=== PATIENT | female | born 1945 | race Caucasian/White ===

== ENCOUNTER 2020-05-03 09:47 | Inpatient (IN) ==
[2020-05-03] MEDS ORDERED: ONDANSETRON INJ 2 MG/ML 2 ML VIAL IV STA (10:29)
[2020-05-03] MEDS ORDERED: MoRPHine SULFATE 4 MG/ML 1 ML CARP\\VIAL IV STA (10:29)
[2020-05-03] MEDS ORDERED: SODIUM CHLORIDE 0.9% 1000ML 1,000 ML IV ONE (10:29)
[2020-05-03 10:51] LABS: Basophils # (auto) 0.02 K/uL (0-0.2); Basophils % (auto) 0.3 %; Eosinophils # (auto) 0.13 K/uL (0-0.5); Eosinophils % (auto) 1.9 %; Immature Granulocytes # (auto) 0.02 K/uL (0.00-0.02); Immature Granulocytes % (auto) 0.3 %; Lymphocytes # (auto) 1.14 K/uL (1.2-3.4); Lymphocytes % (auto) 16.8 %; Mean Corpuscular Hemoglobin 29.9 pg (25-34); Mean Corpuscular Hgb Conc 32.5 g/dL (32-36); Monocytes # (auto) 0.47 K/uL (0.11-0.59); Monocytes % (auto) 6.9 %; Neutrophils # (auto) 5.02 K/uL (1.4-6.5); Neutrophils % (auto) 73.8 %; Platelet Count 292 K/uL (130-400); RDW Coefficient of Variation 14.1 % (11.5-14.5); RDW Standard Deviation 47.4 fL (36.4-46.3); Red Blood Count 4.35 M/uL (4.2-5.4)
[2020-05-03 11:03] LABS: Alanine Aminotransferase 21 U/L (12-78); Albumin Level 3.2 gm/dl (3.4-5.0); Aspartate Aminotransferase 9 U/L (15-37); BUN Creatinine Ratio 15.9 (10-20); Blood Urea Nitrogen 16 mg/dl (7-18); Calcium 9.7 mg/dl (8.5-10.1); Carbon Dioxide 30 mmol/L (21-32); Chloride 102 mmol/L (98-107); Creatinine Clr Calc Pharmacy 45.5 ml/min; Est GFR (African American) 64.6; Est GFR (Non-African American) 55.7; Glucose 102 mg/dl (70-99); Lipase 86 U/L (73-393); Potassium 3.7 mmol/L (3.5-5.1); Sodium 138 mmol/L (136-145)
[2020-05-03 11:08] LABS: Albumin Globulin Ratio 0.9 (0.9-2); Alkaline Phosphatase 44 U/L (45-117); Bilirubin,Total 0.3 mg/dl (0.2-1); Globulin 3.6 gm/dl (2.5-4.0); Total Protein 6.8 gm/dl (6.4-8.2); Troponin I < 0.015 ng/ml (0-0.045)
[2020-05-03] MEDS ORDERED: IOVERSOL 100ml IV ONE (11:38)
--- NOTE | 2020-05-03 11:38 | Emergency Department Note ---
Impression & Plan Nausea & vomiting, Acute lumbar radiculopathy ED Provider Note Provider: Lew Deluca MD DATE OF SERVICE:05/03/2020 CHIEF COMPLAINT: Right hip pain and nausea and vomiting HISTORY OF PRESENT ILLNESS: Patient is a 74-year-old female with a past medical history of hypertension and diabetes presenting today with daughter reporting over the past 2 months consistent nausea and vomiting with any eating. Patient denies other significant abdominal pain. [facility] and had a barium swallow this past week without report at this time. Has been seen at the [place] [facility] several times and had various imaging modalities without reported cause found. Has been taking some prescribed nausea medicine at home without improvement. Denies diarrhea. States she is been losing weight over the past several months. States some GERD at times denies significant chest pain or shortness of breath. Denies fever. States that for some months before that she has had significant right hip pain with some radiation of the right thigh. Denies numbness or tingling in the lower extremities. Denies any issue with the left lower extremity. Patient does relate a history of back surgery in the past. Has tried Phenergan at home with has not helped with the nausea. Patient states she has been taking some tramadol at home for the back pain but this has not been helping. Distantly she reports she is previously on some Lortab and that did help. REVIEW OF SYSTEMS: A total of 10 review of systems was obtained and negative except as stated above in the HPI. PAST MEDICAL HISTORY: As noted above MEDICATIONS: Reviewed home medication list SOCIAL HISTORY: Lives at home, smoker PHYSICAL EXAM: GENERAL: alert and oriented in no acute distress on stretcher Head: normocephalic and atraumatic EYES: No injection, discharge or icterus. NECK: Trachea midline. ENT: Mucous membranes pink and moist. LUNGS: Airway patent. No retractions. Breath sounds clear with good air entry bilaterally. HEART: Regular rate and rhythm. No chest wall tenderness ABDOMEN: Soft and non-tender, without guarding or rebound. No hepatosplenomegaly or masses BACK: No midline tenderness, some tenderness overlying the right hip and pain with movement of the right hip extending into the right thigh. SKIN: Acyanotic, warm, dry, without rashes EXTREMITIES: Without swelling, tenderness or deformity NEUROLOGICAL: No focal deficits. No aphasia. No facial droop or slurred speech. Normal strength and tone in the extremities limited in the right lower extremity secondary to pain. Sensation to gross touch normal in the lower extremities EK bpm sinus rhythm with sinus arrhythmia. No PVC or PAC. No acute ST segment elevation or depression appreciated. Normal QTC. CONTINUOUS CARDIAC MONITORING: was ordered and showed a heart rate of 75 bpm in normal sinus rhythm with occasional sinus arrhythmia PDMP was checked without noted issue. Patient's laboratory studies and imaging reviewed. Differential includes Appendicitis, infections, diverticulitis, UTI, obstru ction, mesenteric ischemia, aortic pathology, inflammatory bowel disease, renal colic, PUD, pancreatitis, biliary pathology, hernia, volvulus, constipation, as well as other pathologies. IMPRESSION/MEDICAL DECISION MAKING: Patient presents with 2 months of nausea and vomiting decreased intake and weight loss. Reports more chronic right hip pain with some radiation of the right thigh. Has been working up with her PCP and providers in [place]. Had a recent outpatient barium swallow but unsure of results. Patient's not peritoneal here. Has pain with movement of the right hip. Question of sciatic component to the hip. No fevers reported. No significant upper abdominal tenderness and doubt biliary pathology. Laboratory studies show no significant leukocytosis or anemia. No severe electrolyte abnormalities signs of renal dysfunction is noted. No evidence of transaminitis or elevated bilirubin is noted. Does not seem consistent with hepatitis. Lipase not elevated not indica tive of acute pancreatitis. Do note some sigmoid diverticulosis but no signs of diverticulitis on a somewhat limited CT exam with a small suprarenal AAA noted. CT scan does note a hyperdensity posterior to the L1 vertebral body likely a disc extrusion partially calcified and much less likely an epidural hematoma. Not having neurological symptoms a lower extremity and believe less likely to be acute infection or hematoma however given the finding in her pain MRI will be obtained. Unsure the exact etiology of her nausea and vomiting. Does have a history of diabetes and some component of gastroparesis may be present. Initially treated with some Zofran IV fluids and morphine. Patient had resolution of her nausea at this time with a low bit thirsty. Pain was somewhat better. Discussed with her and daughter blood work findings and CT findings. Were agreeable for an MRI of the spine which was ordered. Patient did require little bit oxygen to became somewhat drowsy if the morphine. Still with some pain and given a bit of Toradol as he wanted to for additional narcotics to prevent delirium or further hypoxia. Per radiology report the MRI shows prior evidence of laminectomy and likely seroma. There is a right paracentral L1 vertebral body partial disc extrusion with some central canal narrowing and right and some left neural foramen stenosis. No significant infectious symptoms reported and no leukocytosis or fevers. Do not believe this is infectious. The lumbar finding on the CT is likely causing a lumbar radiculopathy and her pain. Her pain is somewhat improved after medication here. Discussed with patient and daughter findings. Patient and daughter in particular he had concerns about the continued nausea decreased intake and weight loss recently and wished for further observation here in the hospital. Discussed the risks associated with this (such as iatrogenic infections or Covid exposure) as well as possible benefits and GI consultation. The hospitalist was contacted. DIAGNOSIS: Nausea and vomiting, lumbar radiculopathy with sciatica DISPOSITION: Hospitalist will evaluate Patient was agreeable with this plan. Past Med/Surg History Social History Smoking Status: Current every day smoker Tobacco Type: Cigarettes Feels Safe at Home: Yes Allergies Allergies Allergy/AdvReac Type Severity Reaction Status Date / Time No Known Allergies Allergy Unverified 05/03/20 12:33 Home Meds Home Medications Medication Instructions Recorded Confirmed cholecalciferol (vitamin D3) 25 mcg PO DAILY 05/03/20 05/03/20 [Vitamin D3] cyanocobalamin (vitamin B-12) 1,000 mcg PO DAILY 05/03/20 05/03/20 [Vitamin B-12] diltiazem HCl 180 mg PO DAILY 05/03/20 05/03/20 duloxetine 30 mg PO DAILY 05/03/20 05/03/20 duloxetine 60 mg PO DAILY 05/03/20 05/03/20 fenofibrate micronized 134 mg PO DAILY 05/03/20 05/03/20 gabapentin 600 mg PO TID 05/03/20 05/03/20 hydrochlorothiazide 25 mg PO DAILY 05/03/20 05/03/20 [id number] [Creon] 1 cap PO DIRECTED 05/03/20 05/03/20 liraglutide [Victoza 3-Shady] 1.8 mg SUBCUT QAM 05/03/20 05/03/20 lisinopril 40 mg PO DAILY 05/03/20 05/03/20 metformin 1,000 mg PO BID 05/03/20 05/03/20 omega-3 fatty acids [Fish Oil] 1,000 mg PO DAILY 05/03/20 05/03/20 ondansetron 4 mg TRANSLINGUAL Q8H PRN 05/03/20 05/03/20 pantoprazole 40 mg PO DAILY 05/03/20 05/03/20 pramipexole 1 mg PO HS 05/03/20 05/03/20 pravastatin 40 mg PO DAILY 05/03/20 05/03/20 ropinirole 1 mg PO HS 05/03/20 05/03/20 sucralfate 1 g PO DIRECTED PRN 05/03/20 05/03/20 tizanidine 4 mg PO Q8H PRN 05/03/20 05/03/20 tramadol 50 mg PO DIRECTED PRN 05/03/20 05/03/20 Results & Data (ED) Vital Signs Vital Signs - 24 hr 05/03/20 09:55 05/03/20 10:46 05/03/20 11:57 Temperature 37.2 C Temperature Source Oral Pulse Rate 78 Pulse Rate [Apical] 75 Pulse Rhythm [Apical] Regular Respiratory Rate 20 18 Respiratory Effort / Characteristics Non-Labored Spontaneous Non-Labored Spontaneous Respiratory Depth Normal Normal Respiratory Pattern Regular Blood Pressure 131/81 Blood Pressure [Right Arm] 152/92 H Blood Pressure Mean 97 Blood Pressure Mean [Right Arm] 112 Pulse Oximetry 92 86 L 94 Oxygen Delivery Method Room Air Nasal Cannula Nasal Cannula Oxygen Flow Rate 3 Sepsis Recent Fever Within 48 Hours No Sepsis New/Unexplained Change in Mental Status N/A Sepsis Action Taken by Nursing No Action Required Oxygen Flow Rate - Titration 2 Pulse Oximetry Post Tiitration 91 05/03/20 13:00 05/03/20 14:55 05/03/20 16:56 Temperature Temperature Source Pulse Rate Pulse Rate [Apical] 71 82 75 Pulse Rhythm [Apical] Regular Regular Respiratory Rate 18 18 20 Respiratory Effort / Characteristics Non-Labored Spontaneous Non-Labored Spontaneous Respiratory Depth Normal Normal Respiratory Pattern Blood Pressure Blood Pressure [Right Arm] 148/90 H 137/63 133/77 Blood Pressure Mean Blood Pressure Mean [Right Arm] 109 87 95 Pulse Oximetry 95 92 98 Oxygen Delivery Method Nasal Cannula Nasal Cannula Room Air Oxygen Flow Rate 2 2 Sepsis Recent Fever Within 48 Hours Sepsis New/Unexplained Change in Mental Status Sepsis Action Taken by Nursing Oxygen Flow Rate - Titration Pulse Oximetry Post Tiitration Laboratory Data Result diagrams: 05/03/20 10:39 05/03/20 10:39 Lab Results 05/03/20 05/03/20 05/03/20 Range/Units 10:39 10:39 17:15 WBC 6.80 (4.8-10.8) K/uL RBC 4.35 (4.2-5.4) M/uL Hgb 13.0 (12.0-16.0) g/dL Hct 40.0 (37-47) % MCV 92.0 (80-100) fL MCH 29.9 (25-34) pg MCHC 32.5 (32-36) g/dL RDW Std Deviation 47.4 H (36.4-46.3) fL RDW Coeff of [place] 14.1 (11.5-14.5) % Plt Count 292 (130-400) K/uL MPV 10.0 (7.4-10.4) fL Immature Gran % (Auto) 0.3 % Neut % (Auto) 73.8 % Lymph % (Auto) 16.8 % [place] % (Auto) 6.9 % Eos % (Auto) 1.9 % Baso % (Auto) 0.3 % Neut # (Auto) 5.02 (1.4-6.5) K/uL Lymph # (Auto) 1.14 L (1.2-3.4) K/uL [place] # (Auto) 0.47 (0.11-0.59) K/uL Eos # (Auto) 0.13 (0-0.5) K/uL Baso # (Auto) 0.02 (0-0.2) K/uL Immature Gran # (Auto) 0.02 (0.00-0.02) K/uL Sodium 138 (136-145) mmol/L Potassium 3.7 (3.5-5.1) mmol/L Chloride 102 (98-107) mmol/L Carbon Dioxide 30 (21-32) mmol/L Anion Gap 6.0 (3-11) BUN 16 (7-18) mg/dl Creatinine 0.99 (0.6-1.2) mg/dl Est Cr Clr Drug Dosing 45.5 ml/min Est GFR ( Amer) 64.6 Est GFR (Non-Af Amer) 55.7 BUN/Creatinine Ratio 15.9 (10-20) Glucose 102 H (70-99) mg/dl Calcium 9.7 (8.5-10.1) mg/dl Total Bilirubin 0.3 (0.2-1) mg/dl AST 9 L (15-37) U/L ALT 21 (12-78) U/L Alkaline Phosphatase 44 L (45-117) U/L Troponin I < 0.015 (0-0.045) ng/ml Total Protein 6.8 (6.4-8.2) gm/dl Albumin 3.2 L (3.4-5.0) gm/dl Globulin 3.6 (2.5-4.0) gm/dl Albumin/Globulin Ratio 0.9 (0.9-2) Lipase 86 (73-393) U/L COVID-19 Eval [facility] SARS-CoV-2, RNA, NAAT (NEGATIVE) 05/03/20 Range/Units 17:15 WBC (4.8-10.8) K/uL RBC (4.2-5.4) M/uL Hgb (12.0-16.0) g/dL Hct (37-47) % MCV (80-100) fL MCH (25-34) pg MCHC (32-36) g/dL RDW Std Deviation (36.4-46.3) fL RDW Coeff of [place] (11.5-14.5) % Plt Count (130-400) K/uL MPV (7.4-10.4) fL Immature Gran % (Auto) % Neut % (Auto) % Lymph % (Auto) % [place] % (Auto) % Eos % (Auto) % Baso % (Auto) % Neut # (Auto) (1.4-6.5) K/uL Lymph # (Auto) (1.2-3.4) K/uL [place] # (Auto) (0.11-0.59) K/uL Eos # (Auto) (0-0.5) K/uL Baso # (Auto) (0-0.2) K/uL Immature Gran # (Auto) (0.00-0.02) K/uL Sodium (136-145) mmol/L Potassium (3.5-5.1) mmol/L Chloride (98-107) mmol/L Carbon Dioxide (21-32) mmol/L Anion Gap (3-11) BUN (7-18) mg/dl Creatinine (0.6-1.2) mg/dl Est Cr Clr Drug Dosing ml/min Est GFR ( Amer) Est GFR (Non-Af Amer) BUN/Creatinine Ratio (10-20) Glucose (70-99) mg/dl Calcium (8.5-10.1) mg/dl Total Bilirubin (0.2-1) mg/dl AST (15-37) U/L ALT (12-78) U/L Alkaline Phosphatase (45-117) U/L Troponin I (0-0.045) ng/ml Total Protein (6.4-8.2) gm/dl Albumin (3.4-5.0) gm/dl Globulin (2.5-4.0) gm/dl Albumin/Globulin Ratio (0.9-2) Lipase (73-393) U/L COVID-19 Eval Order SARS-CoV-2, RNA, NAAT NEGATIVE (NEGATIVE) Administered Medications Nicotine (Nicotine 21 Mg/24 Hr Tdsy) 21 mg TD QAM CLIVE Stop: 06/02/20 16:14 Last Admin: 05/03/20 16:30 Dose: 21 mg Documented by: [id number] Discontinued Medications Sodium Chloride (Nss 1000ml) 1,000 mls @ 999 mls/hr IV .Q1H1M ONE Stop: 05/03/20 11:29 Last Infusion: 05/03/20 12:12 Dose: 0 mls/hr Documented by: [id number] Admin: 05/03/20 10:42 Dose: 999 mls/hr Documented by: [id number] Famotidine (Pepcid 20mg Iv Push) 20 mg in 5 mls @ 2.5 mls/min IV NOW STA Stop: 05/03/20 13:54 Last Admin: 05/03/20 14:01 Dose: 2.5 mls/min Documented by: [id number] Lactated Ringer's (Lr) 1,000 mls @ 999 mls/hr IV .Q1H1M ONE Stop: 05/03/20 17:01 Last Admin: 05/03/20 16:30 Dose: 999 mls/hr Documented by: [id number] Ioversol (Ioversol 100ml) 94 ml IV ONCE ONE Stop: 05/03/20 11:39 Last Admin: 05/03/20 11:38 Dose: 94 ml Documented by: [id number] Ketorolac Tromethamine (Ketorolac Tromethamine 15 Mg/Ml Vial) 10 mg IV NOW ONE Stop: 05/03/20 13:54 Last Admin: 05/03/20 14:01 Dose: 10 mg Documented by: [id number] Metoclopramide HCl (Metoclopramide Hcl Inj 5 Mg/Ml 2 Ml Vial) 5 mg IV ONE ONE Stop: 05/03/20 16:02 Last Admin: 05/03/20 16:30 Dose: 5 mg Documented by: [id number] Morphine Sulfate (Morphine Sulfate 4 Mg/Ml 1 Ml Carp\Vial) 4 mg IV NOW STA Stop: 05/03/20 10:30 Last Admin: 05/03/20 10:42 Dose: 4 mg Documented by: [id number] Ondansetron HCl (Ondansetron Inj 2 Mg/Ml 2 Ml Vial) 4 mg IV NOW STA Stop: 05/03/20 10:30 Last Admin: 05/03/20 10:42 Dose: 4 mg Documented by: [id number] Discharge Plan Visit Data Chief Complaint: Vomiting Stated Complaint: THROWING UP ED Provider: Lew Deluca Discharge Problem: Nausea & vomiting, Acute lumbar radiculopathy Patient Disposition: Being Evaluated by Hospitalist Forms Stand Alone Forms: [facility] Prescriptions Prescriptions: No Action pramipexole 1 mg tablet 1 mg PO HS RF: 0 metformin 500 mg tablet 1,000 mg PO BID RF: 0 gabapentin 600 mg tablet 600 mg PO TID RF: 0 ropinirole 1 mg tablet 1 mg PO HS RF: 0 pravastatin 40 mg tablet 40 mg PO DAILY RF: 0 diltiazem HCl 180 mg capsule,extended release 24hr 180 mg PO DAILY RF: 0 tizanidine 4 mg tablet 4 mg PO Q8H PRN (Reason: Muscle Spasm) RF: 0 sucralfate 1 gram tablet 1 g PO DIRECTED PRN (Reason: Indigestion) RF: 0 cyanocobalamin (vitamin B-12) [Vitamin B-12] 1,000 mcg Tablet 1,000 mcg PO DAILY RF: 0 tramadol 50 mg tablet 50 mg PO DIRECTED PRN (Reason: Pain) RF: 0 fenofibrate micronized 134 mg capsule 134 mg PO DAILY RF: 0 pantoprazole 40 mg tablet,delayed release (DR/EC) 40 mg PO DAILY RF: 0 hydrochlorothiazide 25 mg tablet 25 mg PO DAILY RF: 0 lisinopril 40 mg tablet 40 mg PO DAILY RF: 0 ondansetron 4 mg tablet,disintegrating 4 mg translingual Q8H PRN (Reason: Nausea) RF: 0 Fish Oil Capsule 1,000 mg PO DAILY RF: 0 duloxetine 30 mg capsule,delayed release(DR/EC) 30 mg PO DAILY RF: 0 duloxetine 60 mg capsule,delayed release(DR/EC) 60 mg PO DAILY RF: 0 cholecalciferol (vitamin D3) [Vitamin D3] 25 mcg (1,000 unit) Tablet 25 mcg PO DAILY RF: 0 Creon 24,000-76,000 -120,000 unit capsule,delayed release(DR/EC) 1 cap PO DIRECTED RF: 0 Victoza 3-Shady 0.6 mg/0.1 mL (18 mg/3 mL) pen injector 1.8 mg SUBCUT QAM RF: 0 Referrals Referrals: Manny Bland DO [Primary Care Provider] - Discharge Problem: Nausea & vomiting Qualifiers: Vomiting type: unspecified Vomiting Intractability: non-intractable Qualified Code(s): R11.2 - Nausea with vomiting, unspecified
--- NOTE | 2020-05-03 12:02 | CT Scan Report ---
CT OF THE ABDOMEN AND PELVIS WITH CONTRAST CLINICAL HISTORY: vomiting, R hip pain COMPARISON STUDY: None. TECHNIQUE: Following IV administration of 94 mL of Optiray-320, axial images of the abdomen and pelvi s were obtained from the lung bases to the proximal femurs. Images were reviewed in the axial, sagitt al, and coronal planes. IV contrast was administered without complication. Automated exposure contro l was utilized for the study. A dose lowering technique was utilized adhering to the principles of A MAICOL. CT DOSE: 565.97 mGy.cm FINDINGS: Visualized portions of the lower chest demonstrate moderate cardiomegaly. There is groundgl ass opacity within the left lower lobe. Calcified granulomas within the lower lungs are noted. No pneumatosis, free air or portal venous gas is present. A fat containing right adrenal nodule repre sents a myelolipoma. Slight prominence of the main pancreatic duct is noted. There is no peripancreat ic infiltration. There are calcifications within the pancreas. There is no biliary ductal dilatation. The liver, spleen, left adrenal gland and kidneys are unremarkable. There is no hydronephrosis or hy droureter. Evaluation of the bowel is compromised by streak artifact from barium within the colon. Th ere is extensive colonic diverticulosis. Sensitivity for detection of acute diverticulitis is diminis hed but there is no evidence for acute diverticulitis on this examination. Streak artifact from lumbo sacral spine hardware is also noted. There is a right paracentral hyperdensity posterior to the L1 ve rtebral body that measures approximately 2.7 x 1.6 x 0.9 cm. This is suboptimally assessed by CT. Thi s contains a a few locules of gas. Mild bladder wall thickening is noted. Note is made of a 3.1 cm valdovinos prarenal abdominal aortic aneurysm. A 2.1 cm water attenuation left adnexal lesion favors a cyst. IMPRESSION: 1. Extensive sigmoid diverticulosis. Evaluation for diverticulitis difficult given streak artifact fr om barium within the colon however no convincing evidence for acute diverticulitis on this exam. 2. Left lower lobe groundglass opacity which may reflect an infectious process or atelectasis. 3. Right paracentral hyperdensity posterior to the L1 vertebral body that measures approximately 2.7 x 1.6 x 0.9 cm. This is suboptimally assessed by CT and it's unclear which disc space this arises fro m. This favors a disc extrusion, partially calcified. An epidural hematoma could appear similar but i s considered much less likely. Correlation with prior imaging studies, if available, is recommended. An MRI could be obtained as indicated. 4. 3.1 cm suprarenal abdominal aortic aneurysm. ACT 112: Negative or not required by law. Electronically signed by: Chriss Naranjo M.D. 05/03/2020 12:01 PM
[2020-05-03] MEDS ORDERED: FAMOTIDINE 20MG IV PUSH 20 MG/5 ML SYR IV STA (13:53)
[2020-05-03] MEDS ORDERED: KETOROLAC TROMETHAMINE 15 MG/ML VIAL IV ONE (13:53)
--- NOTE | 2020-05-03 15:19 | Magnetic Resonance Report ---
MRI OF THE LUMBAR SPINE WITH AND WITHOUT CONTRAST CLINICAL HISTORY: lumbar back and r hip pain, ct findings COMPARISON STUDY: CT of the abdomen and pelvis performed earlier today. TECHNIQUE: Utilizing a 1.5 Lesly magnet and dedicated coil, multiplanar, multiecho imaging of the [facility] spine was performed before and after uneventful IV administration of 8 mL of Gadavist. FINDINGS: For purposes of numbering on this exam, the L5-S1 disc space is assigned to axial image 37 of 40. Not e is made of a posterior decompression at the L3 and L4 levels. There is a laminectomy bed fluid janett ection that measures 5.3 x 4.6 x 1.8 cm. Note is made of bilateral pedicle screw fusion which extends from L2 through S1 with L3-L4 and L4-L5 discectomies with interbody spacer placement.. No acute lumb ar spine fracture is noted. Discogenic changes are most pronounced at the L1-L2 level. Vacuum disc ph enomenon at this level is better depicted on prior CT. Paravertebral soft tissues are unremarkable. L1-2: Note is made of a peripherally enhancing markedly T2 hypointense right paracentral abnormality located posterior to the L1 vertebral body that measures 2.7 x 1.1 x 1.5 cm. When correlating with pr ior CT, this likely reflects a large calcified disc extrusion with superior subligamentous migration. This likely originates from the L1-L2 disc space. This results in severe narrowing of the central ca nal and right lateral recess at this level. Patent diameter of the canal is 5 mm. There is severe rig ht and moderate left neural foraminal stenosis at this level. L2-3: The central canal and neural foramen are patent. L3-4: The central canal and neural foramen are patent. L4-5: The central canal and neural foramen are patent. L5-S1: The central canal and neural foramen are patent. IMPRESSION: 1. Status post L3-L4 and L4-L5 discectomies and L2-S1 bilateral pedicle screw fusion with L3-L4 nathan ectomy. 5.3 x 4.6 x 1.8 cm laminectomy bed fluid collection likely reflects a seroma. 2. 2.7 x 1.1 x 1.5 cm right paracentral abnormality located posterior to the L1 vertebral body which is T2 hypointense with peripheral enhancement. When correlating with CT from earlier today, the appea brittny favors a partially calcified large right paracentral disc extrusion, likely originating from th e L1-L2 disc space, with superior subligamentous migration. This results in severe narrowing of the c entral canal and right lateral recess at this level. Severe right and moderate left neural foraminal stenosis at this level. 3. No additional sites of significant central canal or neural foraminal stenosis. 4. No lumbar spine fracture. ACT 112: Negative or not required by law. Electronically signed by: Chriss Naranjo M.D. 05/03/2020 3:17 PM
[2020-05-03] MEDS ORDERED: METOCLOPRAMIDE HCL INJ 5 MG/ML 2 ML VIAL IV ONE (16:01)
[2020-05-03] MEDS ORDERED: LACTATED RINGER'S 1,000 ML IV ONE (16:01)
[2020-05-03] MEDS: NICOTINE 21 MG/24 HR TDSY TD SCH (16:30)
--- NOTE | 2020-05-03 17:30 | History & Physical Report ---
Date of Service May 03, 2020 Assessment & Plan (1) Nausea & vomiting: Patient presents with daily nausea/vomiting and a 20 pound weight loss along with frequent heartburn for the last 2 months. When she is not eating, she feels well. 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 She has been on Victoza she thinks for about 6 months and this could be contributing to this presentation-we will discontinue this Thinks she had an EGD over a year ago for dysphagia which was reportedly normal- we will attempt to obtain these records -Admit to medical/surgical floor -Continue gentle IV fluid hydration -Start scheduled Reglan 5 mg IV 3 times a day with meals -Discontinue Victoza which can cause nausea, weight loss, and may be contributing to her symptoms -She has been on tramadol for years and so this is not likely the cause of her nausea/vomiting -Consult gastroenterology to consider EGD perhaps during this admission -Continue pantoprazole 40 mg p.o. once daily -Zofran as needed -Will order clear liquids diet for now as tolerated (2) Acute lumbar radiculopathy: With acute on chronic right-sided lumbar radiculopathy with MRI findings as noted above -Needs outpatient follow-up with spine surgery She has no urgent indication for surgery-no focal neurological deficits -PT/OT consultations placed -Continue tramadol as needed for pain control but increased to 100 mg every 6 hours as needed pain -Add Voltaren gel and lidocaine patch to the lower back -Increase home gabapentin to 600 mg in the morning and early afternoon and up to 900 mg at night from home dose of 600 3 times daily Tylenol as needed (3) Chronic low back pain: Continue tramadol (4) Vitamin D deficiency: Continue home vitamin D (5) Vitamin B12 deficiency: Continue home vitamin B12 (6) Restless leg syndrome: Her home medication list includes both Mirapex and Requip-she reports that she is taking both these at home Seems that she should only be on one of them as they work in the same mechanism -Will continue Mirapex and discontinue Requip (7) Diabetes mellitus type 2 in obese: Accu-Cheks, NovoLog sliding scale Hold home metformin Check hemoglobin A1c in the morning (8) GERD (gastroesophageal reflux disease): With history of PUD with GI bleeding as per patient and her daughter Continue PPI (9) HTN (hypertension), benign: Blood pressures were acceptable upon admission Continue home lisinopril, HCTZ, and diltiazem (10) Obesity: BMI 32.4 Has already lost 20 pounds in the last 2 months (11) Current smoker: Has a [id number] smoking history Encourage cessation after leaving the hospital Nicotine patch ordered (12) AAA (abdominal aortic aneurysm): Noted incidentally to have a 3.1 cm suprarenal AAA on CT abdomen/pelvis Encourage smoking cessation, continue statin Needs follow-up with vascular surgery as an outpatient (13) Hyperlipidemia: Continue pravastatin and fenofibrate (14) Depression: Stable Continue home duloxetine (15) DVT prophylaxis: Lovenox SQ Disposition-bring in on observation to medical/surgical floor. May need to stay until Tuesday for EGD if planned as an inpatient and not able to tolerate p.o. prior to then PT/OT consultations placed History of Present Illness Chief Complaint: Nausea/vomiting intractable Primary Care Provider: Manny Bland DO This patient is a very pleasant 74-year-old female with a history of HTN, PUD/GERD, DM 2, depression, RLS, hyperlipidemia, lumbar radiculopathy, vitamin B12 and vitamin D deficiencies, and a heavy smoker, who presents to the ER with intractable nausea/vomiting that is been going on for 2 months. She reports that even with drinking a cup of water, she will vomit. However, sometimes she is able to tolerate drinking milk for some reason as well as occasional Jell-O. She has also had heartburn every other day for the last 2 months and has had a 20 pound weight loss. She previously had an issue with chronic diarrhea which resolved with Creon last year, however for the last 2 months, she is only moving her bowels small amounts at a time of loose or liquid stools. Denies any blood in her vomit or blood in the stool. No melena. She denies any abdominal pains. She believes she had an EGD and a colonoscopy at [facility] over a year ago that she believes were normal. The EGD at that time was performed for a complaint of dysphagia. She reports she has been going through an outpatient work-up for her daily nausea/vomiting to include a barium swallow this past Tuesday-she has not heard the results of this yet. Her daughter finally brought her into the ER as they are just extremely frustrated that they cannot figure out why this is continuing to go on and her weight loss and weakness are worsening. She does report feeling lightheaded with standing up. She denies any chest pains or shortness of breath. No fever/chills/sweats. She has also been dealing with acute on chronic lumbar radiculopathy for the last several months as well. She takes tramadol for this at home but has been taking tramadol for years. Of note, she has been on Victoza which she believes was started about 6 months ago. Her laboratory values to include CBC, CMP, troponin, lipase were all normal. She had an MRI of the lumbar spine for her acute on chronic right lower extremity radicular pain and was found to have a large right paracentral abnormality at the L1 level thought to be a disc extrusion from the L1-L2 disc space resulting in severe narrowing of the central canal and right lateral recess at this level. In the ER, she was given IV fluids, IV morphine for her lower back pain, IV Zofran, and 1 dose of IV Reglan. After receiving the Zofran, she attempted a p.o. trial in the ER and threw up the water promptly. She will be admitted for more of a work-up of intractable nausea/vomiting, weight loss. Allergies Allergy/AdvReac Type Severity Reaction Status Date / Time No Known Allergies Allergy Unverified 05/03/20 12:33 Home Medications Medication Instructions Recorded Confirmed Type cholecalciferol (vitamin D3) 25 mcg PO DAILY 05/03/20 05/03/20 History [Vitamin D3] cyanocobalamin (vitamin B-12) 1,000 mcg PO DAILY 05/03/20 05/03/20 History [Vitamin B-12] diltiazem HCl 180 mg PO DAILY 05/03/20 05/03/20 History duloxetine 30 mg PO DAILY 05/03/20 05/03/20 History duloxetine 60 mg PO DAILY 05/03/20 05/03/20 History fenofibrate micronized 134 mg PO DAILY 05/03/20 05/03/20 History gabapentin 600 mg PO TID 05/03/20 05/03/20 History hydrochlorothiazide 25 mg PO DAILY 05/03/20 05/03/20 History [id number] [Creon] 1 cap PO DIRECTED 05/03/20 05/03/20 History liraglutide [Victoza 3-Shady] 1.8 mg SUBCUT QAM 05/03/20 05/03/20 History lisinopril 40 mg PO DAILY 05/03/20 05/03/20 History metformin 1,000 mg PO BID 05/03/20 05/03/20 History omega-3 fatty acids [Fish Oil] 1,000 mg PO DAILY 05/03/20 05/03/20 History ondansetron 4 mg TRANSLINGUAL Q8H PRN 05/03/20 05/03/20 History pantoprazole 40 mg PO DAILY 05/03/20 05/03/20 History pramipexole 1 mg PO HS 05/03/20 05/03/20 History pravastatin 40 mg PO DAILY 05/03/20 05/03/20 History ropinirole 1 mg PO HS 05/03/20 05/03/20 History sucralfate 1 g PO DIRECTED PRN 05/03/20 05/03/20 History tizanidine 4 mg PO Q8H PRN 05/03/20 05/03/20 History tramadol 50 mg PO DIRECTED PRN 05/03/20 05/03/20 History Past Med/Surg History Medical History (Updated 05/03/20 @ 21:40 by Krystal Tena MD) AAA (abdominal aortic aneurysm) Acute lumbar radiculopathy Chronic low back pain Current smoker Depression Diabetes mellitus type 2 in obese GERD (gastroesophageal reflux disease) HTN (hypertension), benign Hyperlipidemia Obesity Peptic ulcer disease Restless leg syndrome Vitamin B12 deficiency Vitamin D deficiency Surgical History (Updated 05/03/20 @ 21:18 by Krystal Tena MD) History of bilateral tubal ligation History of carpal tunnel release Left History of lumbar fusion History of repair of rotator cuff Right Family History (Updated 05/03/20 @ 21:20 by Krystal Tena MD) Father Heart disease Brother Kidney disease Mother Gastric cancer Family/Other Testicular cancer Social History (Updated 05/03/20 @ 21:20 by Krystal Tena MD) Smoking Status: Current every day smoker Tobacco Type: Cigarettes Years Smoked: 60; Cigarettes Per Day: 30; Hx Alcohol Use: No Hx Substance Use: No Preferred Language: Ghanaian Communication Ability: Effective 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 Technology 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 Beliefs That Will Affect Care: None Current Living Situation: Family Current Living Situation Comment: Son and grandson Feels Safe at Home: Yes Safety Concerns: Feels Safe At This Time Assistive Devices: Denture - Upper, Denture - Lower and Glasses Review of Systems Review of Systems: All systems reviewed & are unremarkable except as noted in HPI & below Physical Exam Constitutional: WD/WN, vitals as above + obese Eyes: PERRL, conjunctivae normal, anicteric sclerae ENMT: external ear and nose normal, oropharynx normal Neck: trachea midline, no thyromegaly Respiratory: normal respiratory effort Auscultation: + rhonchi (A few scattered rhonchi); no crackles and no wheezes Cardiovascular: RRR, no murmur, no edema Chest (Breasts): Chest: normal inspection of chest Gastrointestinal (Abdomen): normal bowel sounds, soft, nontender, no hepatosplenomegaly Musculoskeletal: Extremities: extremities normal to inspection; no cyanosis and no clubbing Skin: no rashes, warm and dry Incisional scar in the lumbar spine in the midline Neurologic: moves all extremities and awake; no focal motor deficits (Full strength throughout the lower extremities bilaterally) Motor/Sensory: no sensory deficit Psychiatric: A+Ox3, euthymic affect Lymphatic: no lymphedema Results & Data Results & Data ([facility]) Vital Signs (Past 12 Hours) Vital Signs Temp Pulse Pulse Resp BP BP Pulse Ox 05/03/20 16:56 75 20 133/77 98 05/03/20 14:55 82 18 137/63 92 05/03/20 13:00 71 18 148/90 H 95 05/03/20 11:57 75 18 152/92 H 94 05/03/20 10:46 86 L 05/03/20 09:55 37.2 C 78 20 131/81 92 Laboratory Results 05/03/20 05/03/20 05/03/20 Range/Units 20:42 17:15 17:15 WBC (4.8-10.8) K/uL RBC (4.2-5.4) M/uL Hgb (12.0-16.0) g/dL Hct (37-47) % MCV (80-100) fL MCH (25-34) pg MCHC (32-36) g/dL RDW Std Deviation (36.4-46.3) fL RDW Coeff of [place] (11.5-14.5) % Plt Count (130-400) K/uL MPV (7.4-10.4) fL Immature Gran % (Auto) % Neut % (Auto) % Lymph % (Auto) % [place] % (Auto) % Eos % (Auto) % Baso % (Auto) % Neut # (Auto) (1.4-6.5) K/uL Lymph # (Auto) (1.2-3.4) K/uL [place] # (Auto) (0.11-0.59) K/uL Eos # (Auto) (0-0.5) K/uL Baso # (Auto) (0-0.2) K/uL Immature Gran # (Auto) (0.00-0.02) K/uL Sodium (136-145) mmol/L Potassium (3.5-5.1) mmol/L Chloride (98-107) mmol/L Carbon Dioxide (21-32) mmol/L Anion Gap (3-11) BUN (7-18) mg/dl Creatinine (0.6-1.2) mg/dl Est Cr Clr Drug Dosing ml/min Est GFR ( Amer) Est GFR (Non-Af Amer) BUN/Creatinine Ratio (10-20) Glucose (70-99) mg/dl POC Glucose 67 L* (70-99) mg/dl Calcium (8.5-10.1) mg/dl Total Bilirubin (0.2-1) mg/dl AST (15-37) U/L ALT (12-78) U/L Alkaline Phosphatase (45-117) U/L Troponin I (0-0.045) ng/ml Total Protein (6.4-8.2) gm/dl Albumin (3.4-5.0) gm/dl Globulin (2.5-4.0) gm/dl Albumin/Globulin Ratio (0.9-2) Lipase (73-393) U/L TSH COVID-19 [facility] SARS-[facility]-2, RNA, NAAT NEGATIVE (NEGATIVE) 05/03/20 05/03/20 05/03/20 Range/Units 10:39 10:39 10:39 WBC 6.80 (4.8-10.8) K/uL RBC 4.35 (4.2-5.4) M/uL Hgb 13.0 (12.0-16.0) g/dL Hct 40.0 (37-47) % MCV 92.0 (80-100) fL MCH 29.9 (25-34) pg MCHC 32.5 (32-36) g/dL RDW Std Deviation 47.4 H (36.4-46.3) fL RDW Coeff of [place] 14.1 (11.5-14.5) % Plt Count 292 (130-400) K/uL MPV 10.0 (7.4-10.4) fL Immature Gran % (Auto) 0.3 % Neut % (Auto) 73.8 % Lymph % (Auto) 16.8 % [place] % (Auto) 6.9 % Eos % (Auto) 1.9 % Baso % (Auto) 0.3 % Neut # (Auto) 5.02 (1.4-6.5) K/uL Lymph # (Auto) 1.14 L (1.2-3.4) K/uL [place] # (Auto) 0.47 (0.11-0.59) K/uL Eos # (Auto) 0.13 (0-0.5) K/uL Baso # (Auto) 0.02 (0-0.2) K/uL Immature Gran # (Auto) 0.02 (0.00-0.02) K/uL Sodium 138 (136-145) mmol/L Potassium 3.7 (3.5-5.1) mmol/L Chloride 102 (98-107) mmol/L Carbon Dioxide 30 (21-32) mmol/L Anion Gap 6.0 (3-11) BUN 16 (7-18) mg/dl Creatinine 0.99 (0.6-1.2) mg/dl Est Cr Clr Drug Dosing 45.5 ml/min Est GFR ( Amer) 64.6 Est GFR (Non-Af Amer) 55.7 BUN/Creatinine Ratio 15.9 (10-20) Glucose 102 H (70-99) mg/dl POC Glucose (70-99) mg/dl Calcium 9.7 (8.5-10.1) mg/dl Total Bilirubin 0.3 (0.2-1) mg/dl AST 9 L (15-37) U/L ALT 21 (12-78) U/L Alkaline Phosphatase 44 L (45-117) U/L Troponin I < 0.015 (0-0.045) ng/ml Total Protein 6.8 (6.4-8.2) gm/dl Albumin 3.2 L (3.4-5.0) gm/dl Globulin 3.6 (2.5-4.0) gm/dl Albumin/Globulin Ratio 0.9 (0.9-2) Lipase 86 (73-393) U/L TSH Pending COVID-19 Eval Order SARS-CoV-2, RNA, NAAT (NEGATIVE) Diagnostic Findings MRI lumbar spine: IMPRESSION: 1. Status post L3-L4 and L4-L5 discectomies and L2-S1 bilateral pedicle screw fusion with L3-L4 laminectomy. 5.3 x 4.6 x 1.8 cm laminectomy bed fluid collection likely reflects a seroma. 2. 2.7 x 1.1 x 1.5 cm right paracentral abnormality located posterior to the L1 vertebral body which is T2 hypointense with peripheral enhancement. When correlating with CT from earlier today, the appearance favors a partially calcified large right paracentral disc extrusion, likely originating from the L1-L2 disc space, with superior subligamentous migration. This results in severe narrowing of the central canal and right lateral recess at this level. Severe right and moderate left neural foraminal stenosis at this level. 3. No additional sites of significant central canal or neural foraminal stenosis. 4. No lumbar spine fracture. CT abdomen/pelvis with IV contrast: IMPRESSION: 1. Extensive sigmoid diverticulosis. Evaluation for diverticulitis difficult given streak artifact from barium within the colon however no convincing eviden ce for acute diverticulitis on this exam. 2. Left lower lobe groundglass opacity which may reflect an infectious process or atelectasis. 3. Right paracentral hyperdensity posterior to the L1 vertebral body that measures approximately 2.7 x 1.6 x 0.9 cm. This is suboptimally assessed by CT and it's unclear which disc space this arises from. This favors a disc extrusion, partially calcified. An epidural hematoma could appear similar but is considered much less likely. Correlation with prior imaging studies, if available, is recommended. An MRI could be obtained as indicated. 4. 3.1 cm suprarenal abdominal aortic aneurysm. ECG Additional Comments: ECG on 05/03/2020 at 1036 with sinus rhythm with sinus arrhythmia, rate 64, otherwise normal Code Status & VTE Plan Code Status Full code VTE Prophylaxis Plan VTE Prophylaxis will be ordered: Yes PG Care Time/CCT Total # of Minutes Spent Total Time Spent with Patient: Total time spent is greater than 50% in coordination of care (as documented) at patient's floor/unit and/or counseling patient: Coding Level of Care Code 45188 OBS Care - Level 3 Diagnoses Nausea & vomiting R11.2 Vomiting Intractability: non-intractable Vomiting type: unspecified Acute lumbar radiculopathy M54.16 Chronic low back pain M54.5; G89.29 Vitamin D deficiency E55.9 Vitamin B12 deficiency E53.8 Restless leg syndrome G25.81 Diabetes mellitus type 2 in obese E11.69; E66.9 GERD (gastroesophageal reflux disease) K21.9 HTN (hypertension), benign I10 Obesity E66.9 Current smoker F17.200 AAA (abdominal aortic aneurysm) I71.4 Hyperlipidemia E78.5 Depression F32.9 DVT prophylaxis Z29.9 (1) Nausea & vomiting Vomiting Intractability: non-intractable Vomiting type: unspecified Qualified Code(s): R11.2 - Nausea with vomiting, unspecified
[2020-05-03] MEDS ORDERED: CARBOHYDRATES FOR HYPOGLYCEMIA PO PRN (20:58)
[2020-05-03] MEDS ORDERED: GLUCAGON FOR INJ 1 MG VIAL SQ PRN (20:58)
[2020-05-03] MEDS ORDERED: GLUCOSE 10 TABS/TUBE PO PRN (20:58)
[2020-05-03] MEDS ORDERED: GLUCOSE 40% GEL 15 GM TUBE PO PRN (20:58)
[2020-05-03] MEDS ORDERED: DEXTROSE 50% 50 ML SYRINGE IV PRN (20:58)
[2020-05-03] MEDS ORDERED: PRAMIPEXOLE DIHYDROCHLORIDE 1 MG TAB PO SCH (21:00)
[2020-05-03] MEDS ORDERED: GABAPENTIN 600 MG TAB PO SCH (21:00)
[2020-05-03] MEDS ORDERED: PANCREAZE (LIPASE 10,500U) CAP PO PRN (21:12)
[2020-05-03] MEDS: INSULIN ASPART 100 UNITS/ML 3 ML PEN SC SCH (21:16)
[2020-05-03] MEDS ORDERED: GABAPENTIN 300 MG CAP PO ONE (21:45)
[2020-05-03 21:47] LABS: Basophils # (auto) 0.01 K/uL (0-0.2); Basophils % (auto) 0.1 %; Eosinophils # (auto) 0.17 K/uL (0-0.5); Hematocrit (blood only) 41.9 % (37-47); Hemoglobin 13.3 g/dL (12.0-16.0); Immature Granulocytes # (auto) 0.01 K/uL (0.00-0.02); Immature Granulocytes % (auto) 0.1 %; Lymphocytes # (auto) 1.29 K/uL (1.2-3.4); Mean Corpuscular Hemoglobin 29.6 pg (25-34); Mean Corpuscular Hgb Conc 31.7 g/dL (32-36); Mean Corpuscular Volume 93.1 fL (80-100); Mean Platelet Volume 10.1 fL (7.4-10.4); Monocytes # (auto) 0.71 K/uL (0.11-0.59); Monocytes % (auto) 8.3 %; Neutrophils % (auto) 74.5 %; Platelet Count 277 K/uL (130-400); RDW Coefficient of Variation 14.2 % (11.5-14.5); RDW Standard Deviation 48.2 fL (36.4-46.3); White Blood Count 8.59 K/uL (4.8-10.8)
[2020-05-03] MEDS: LIDOCAINE 5% 1 PATCH TD SCH (22:08)
[2020-05-03] MEDS: DICLOFENAC SOD 1% GEL 100 GM TUBE EXT SCH (22:09)
[2020-05-03] MEDS: NSS + 20MEQ KCL 20 MEQ/1,000 ML BAG IV SCH (22:09)
[2020-05-03] MEDS: ENOXAPARIN INJ 40 MG/0.4 ML SYR SQ SCH (22:09)
[2020-05-03] MEDS: DULoxetine HCL 60 MG CAP PO SCH (22:11)
--- NOTE | 2020-05-03 22:39 | Electrocardiogram Report ---
Test Reason : Blood Pressure : / mmHG Vent. Rate : 064 BPM Atrial Rate : 074 BPM P-R Int : 182 ms QRS Dur : 088 ms QT Int : 398 ms P-R-T Axes : 063 -11 043 degrees QTc Int : 410 ms Sinus rhythm with PACs Cannot rule out Inferior infarct No previous ECGs available Confirmed by Jose A Camarena ([id number]) on 05/03/2020 10:38:36 PM Referred By: Confirmed By:Jose A Camarena
[2020-05-03] MEDS: PRAMIPEXOLE DIHYDROCHLO 0.5 MG TAB PO SCH (23:09)
[2020-05-04] MEDS: traMADol HCL 50 MG TABLET PO PRN ×3 (05:49→21:16)
[2020-05-04 07:33] LABS: Albumin Globulin Ratio 0.9 (0.9-2); Albumin Level 2.9 gm/dl (3.4-5.0); BUN Creatinine Ratio 13.5 (10-20); Bilirubin,Total 0.5 mg/dl (0.2-1); Creatinine Clr Calc Pharmacy 59.6 ml/min; Est GFR (African American) 87.5; Est GFR (Non-African American) 75.5; Globulin 3.4 gm/dl (2.5-4.0); Potassium 3.9 mmol/L (3.5-5.1); Total Protein 6.3 gm/dl (6.4-8.2)
[2020-05-04] MEDS: INSULIN ASPART 100 UNITS/ML 3 ML PEN SC SCH ×4 (08:54→21:13)
[2020-05-04] MEDS: PANCREAZE (LIPASE 10,500U) CAP PO SCH ×3 (08:56→17:04)
[2020-05-04] MEDS: dilTIAZem HCL 180 MG CAPCR PO SCH (08:57)
[2020-05-04] MEDS: CYANOCOBALAMIN 500 MCG TABLET (VITAMIN B-12) PO SCH (08:57)
[2020-05-04] MEDS: DULoxetine HCL 60 MG CAP PO SCH (08:58)
[2020-05-04] MEDS: DULoxetine HCL 30 MG CAP PO SCH (08:58)
[2020-05-04] MEDS: hydroCHLOROthiazide 25 MG TAB PO SCH (08:58)
[2020-05-04] MEDS: GABAPENTIN 600 MG TAB PO SCH ×2 (08:59→13:44)
[2020-05-04] MEDS: OMEGA-3 (PURIFIED FISH OIL) 1 GM CAP PO SCH (09:00)
[2020-05-04] MEDS: PANTOprazole 40 MG TAB PO SCH (09:00)
[2020-05-04] MEDS: PRAVASTATIN SOD 40 MG TAB PO SCH (09:00)
[2020-05-04] MEDS: FENOFIBRATE NANOCRYSTALLIZED 145 MG TABLET PO SCH (09:00)
[2020-05-04] MEDS: lisinopril 40 MG TAB PO SCH (09:01)
[2020-05-04] MEDS: DICLOFENAC SOD 1% GEL 100 GM TUBE EXT SCH ×4 (09:05→21:09)
[2020-05-04] MEDS: CHOLECALCIFEROL 1,000 UNITS 25 MCG TAB PO SCH (09:05)
[2020-05-04 09:10] LABS: Appearance Urine Clear (Clear); Bacteria Urine Automated Negative (Negative); Bilirubin Urine Negative (Negative); Blood Urine Negative (Negative); Cast Urine Automated 0 /lpf (0-5); Color Urine Yellow; Epithelial Cell Urine Auto >30 /lpf (0-5); Glucose Urine UA Negative (Negative); Ketones Urine Negative (Negative); Leukocyte Esterase Urine Negative (Negative); Nitrite Urine Negative (Negative); RBC Urine Automated 0-4 /hpf (0-4); Specific Gravity Urine 1.013 (1.000-1.030); Urobilinogen Urine Negative (Negative)
[2020-05-04] MEDS: METOCLOPRAMIDE HCL INJ 5 MG/ML 2 ML VIAL IV SCH ×3 (09:16→17:03)
[2020-05-04 09:24] LABS: Protein Urine Trace (Negative)
--- NOTE | 2020-05-04 09:34 | Gastrointestinal Consultation ---
Date of Consultation May 04, 2020 Assessment & Plan (1) Nausea & vomiting: (2) Weight loss: possible PUD vs. gastroparesis. Recs: antiemetics prn NPO post midnight EGD tomorrow morning to further evaluate Thank you for allowing me to participate in the care of this patient. History of Present Illness Attending Physician: Tayo Juanito Garcia 74 yo female with hx PUD, DM2, RLS, HLD, smoking who is here with persistent n/v and weight loss. She has had these symptoms for 2 months, will vomit 3 times per day, even with drinking liquids. Never had these issues as a child, denies hematemesis. Notes shooting diffuse abdominal pains as well this morning. Prior EGD for dysphagia 1 year ago was unremarkable. Had colonoscopy as the time as well without any issues. She feels her DM2 is well controlled but cannot remember her last hgbA1c. She has been having weight loss and weakness as well. CT A/P showed diverticulosis. VSS, labs normal. Allergies Allergy/AdvReac Type Severity Reaction Status Date / Time No Known Allergies Allergy Unverified 05/03/20 12:33 Home Medications Medication Instructions Recorded Confirmed Type cholecalciferol (vitamin D3) 25 mcg PO DAILY 05/03/20 05/03/20 History [Vitamin D3] cyanocobalamin (vitamin B-12) 1,000 mcg PO DAILY 05/03/20 05/03/20 History [Vitamin B-12] diltiazem HCl 180 mg PO DAILY 05/03/20 05/03/20 History duloxetine 30 mg PO DAILY 05/03/20 05/03/20 History duloxetine 60 mg PO DAILY 05/03/20 05/03/20 History fenofibrate micronized 134 mg PO DAILY 05/03/20 05/03/20 History gabapentin 600 mg PO TID 05/03/20 05/03/20 History hydrochlorothiazide 25 mg PO DAILY 05/03/20 05/03/20 History [id number]-[id number] [Creon] 1 cap PO DIRECTED 05/03/20 05/03/20 History liraglutide [Victoza 3-Shady] 1.8 mg SUBCUT QAM 05/03/20 05/03/20 History lisinopril 40 mg PO DAILY 05/03/20 05/03/20 History metformin 1,000 mg PO BID 05/03/20 05/03/20 History omega-3 fatty acids [Fish Oil] 1,000 mg PO DAILY 05/03/20 05/03/20 History ondansetron 4 mg TRANSLINGUAL Q8H PRN 05/03/20 05/03/20 History pantoprazole 40 mg PO DAILY 05/03/20 05/03/20 History pramipexole 1 mg PO HS 05/03/20 05/03/20 History pravastatin 40 mg PO DAILY 05/03/20 05/03/20 History ropinirole 1 mg PO HS 05/03/20 05/03/20 History sucralfate 1 g PO DIRECTED PRN 05/03/20 05/03/20 History tizanidine 4 mg PO Q8H PRN 05/03/20 05/03/20 History tramadol 50 mg PO DIRECTED PRN 05/03/20 05/03/20 History Patient History Medical History AAA (abdominal aortic aneurysm) Acute lumbar radiculopathy Chronic low back pain Current smoker Depression Diabetes mellitus type 2 in obese GERD (gastroesophageal reflux disease) HTN (hypertension), benign Hyperlipidemia Obesity Peptic ulcer disease Restless leg syndrome Vitamin B12 deficiency Vitamin D deficiency Surgical History History of bilateral tubal ligation History of carpal tunnel release Left History of lumbar fusion History of repair of rotator cuff Right Family History Father Heart disease Brother Kidney disease Mother Gastric cancer Family/Other Testicular cancer Social History Smoking Status: Current every day smoker Tobacco Type: Cigarettes Years Smoked: 60; Cigarettes Per Day: 30; Hx Alcohol Use: No Hx Substance Use: No Preferred Language: Stateless Communication Ability: Effective Apartment Leasing Consultant Required: No Beliefs That Will Affect Care: None Current Living Situation: Family Current Living Situation Comment: Son and grandson Feels Safe at Home: Yes Safety Concerns: Feels Safe At This Time Assistive Devices: Denture - Upper, Denture - Lower and Glasses Review of Systems Constitutional: no fever, no chills and no weight loss Eyes: as per Subjective / HPI Ear, Nose, Mouth, Throat: as per Subjective / HPI Respiratory: no dyspnea and no dyspnea on exertion Cardiovascular: no chest pain and no palpitations Gastrointestinal: as per Subjective / HPI Musculoskeletal: no joint pain and no swelling Integumentary: no rash and no lesions Neurologic: no numbness and no paresthesia Psychiatric: no depression and no anxiety Endocrine: no fatigue Hematologic / Lymphatic: no easy bleeding and no easy bruising Physical Exam Constitutional: WD/WN, vitals as above Eyes: EOM intact bilaterally Neck: normal visual inspection Respiratory: normal respiratory effort, lungs clear to auscultation Cardiovascular: RRR, no murmur, no edema Gastrointestinal (Abdomen): Inspection/Auscultation: abdomen normal to inspection; abdomen not distended Percussion/Palpation: abdomen soft; abdomen nontender and no hepatosplenomegaly Musculoskeletal: Extremities: no cyanosis Gait: normal gait Skin: no rashes, warm and dry Neurologic: moves all extremities Psychiatric: A+Ox3, euthymic affect Results & Data ([facility]) Vital Signs (Past 12 Hours) Vital Signs Temp Pulse Resp BP Pulse Ox 05/04/20 07:08 36.4 C L 76 18 155/78 H 92 05/03/20 23:03 36.8 C 77 18 126/67 94 PG Care Time/CCT Total # of Minutes Spent Total Time Spent with Patient: Total time spent is greater than 50% in coordination of care (as documented) at patient's floor/unit and/or counseling patient: Coding Level of Care Code 39300 Initial Inpt Care Lvl 3 Diagnoses Nausea & vomiting R11.2 Vomiting Intractability: non-intractable Vomiting type: unspecified Weight loss R63.4 (1) Nausea & vomiting Vomiting Intractability: non-intractable Vomiting type: unspecified Qualified Code(s): R11.2 - Nausea with vomiting, unspecified
[2020-05-04] MEDS: NICOTINE 21 MG/24 HR TDSY TD SCH (10:21)
[2020-05-04] MEDS: NSS + 20MEQ KCL 20 MEQ/1,000 ML BAG IV SCH (11:28)
[2020-05-04] MEDS: ACETAMINOPHEN 325 MG TAB PO PRN ×2 (11:34→22:26)
--- NOTE | 2020-05-04 13:46 | Hospitalist Progress Note ---
Date of Service May 04, 2020 Assessment & Plan (1) Nausea & vomiting: With associated 20-25 pound weight loss since fall 2019. ?PUD vs gastroparesis vs gastric or esophageal cancer vs biliary tract disease vs non-GI causes vs med side effects vs other. [facility] [place] [facility] [place] seen - plan for EGD tomorrow. Cont PPI daily. CT abd/pelvis findings noted - chronic pancreatitis seen - takes creon. TSH wnl. If EGD negative - consider head CT, RUQ us rule out gall bladder disease, HIDA, etc. (2) Clubbing of nail: concerning for chronic hypoxemia 2nd to COPD in setting of long-standing tobacco use will need outpatient PFTs start long-acting antimuscarinic agent (3) COPD (chronic obstructive pulmonary disease): noted needs to quit smoking no exacerbation (4) Severe protein-calorie malnutrition: 25 pounds weight loss last 2-3 months add MVI, boost, etc EGD to launch w/u for cause of this (5) Acute lumbar radiculopathy: With acute on chronic right-sided lumbar radiculopathy Radicular pain extends down right buttock, into posterior right thigh and to the knee will need ortho-spine f/u Continue tramadol as needed for Continue gabapentin for neuropathic pain (6) Chronic low back pain: Continue tramadol prn see MRI l-spine findings L1-L2 disc herniation (7) Vitamin D deficiency: Continue home vitamin D (8) Vitamin B12 deficiency: Continue home vitamin B12 (9) Restless leg syndrome: continue Mirapex and discontinue Requip (10) Diabetes mellitus type 2 in obese: Check hemoglobin A1c Novolog SSI (11) GERD (gastroesophageal reflux disease): Continue PPI (12) HTN (hypertension), benign: Continue lisinopril, HCTZ, and diltiazem (13) Obesity: BMI 32.4 (14) Current smoker: [employer] to quit Long-standing usage Nicotine patch (15) AAA (abdominal aortic aneurysm): Noted incidentally to have a 3.1 cm suprarenal AAA Needs follow-up with vascular surgery as an outpatient for surveillance cont statin (16) Hyperlipidemia: Continue pravastatin and fenofibrate (17) Depression: Continue home duloxetine (18) DVT prophylaxis: Lovenox 40mg daily PT/OT consultations change observation status to full admission daughter updated by phone this evening Admission and Anticipated Discharge Date Admission Date: May 04, 2020 Subjective patient reports 20-25 pounds of weight loss since February unintentional associated with nausea/emesis emesis occurs within <30 seconds of eating/drinking denies any concurrent abdominal pain denies h/o pancreatitis despite the creon usage denies chronic, heavy etoh usage continues to smoke at some point in the past she was dx with emphysema she also was dx with PUD at a hospital in [place], [place] years ago Review of Systems Constitutional: no fever and no chills Respiratory: no cough Cardiovascular: no chest pain Gastrointestinal: + nausea and + vomiting; no abdominal pain, no change in bowel habits, no diarrhea/loose stools and no blood in stools Physical Exam Constitutional: no acute distress and no altered mental status ENMT: external ear and nose normal, oropharynx normal Respiratory: Auscultation: + wheezes (B/l ) Cardiovascular: Rate/Rhythm: regular rate and regular rhythm Heart Sounds: normal S1 and normal S2; no murmur Vessels: posterior tibial pulses present and dorsalis pedis pulses present; no JVD Extremities: no edema Gastrointestinal (Abdomen): normal bowel sounds, soft, nontender, no hepatosplenomegaly Musculoskeletal: Extremities: + clubbing Psychiatric: A+Ox3, euthymic affect Results & Data Results & Data ([facility]) Vital Signs (Past 12 Hours) Vital Signs Temp Pulse Resp BP Pulse Ox 05/04/20 07:08 36.4 C L 76 18 155/78 H 92 Laboratory Results Laboratory Results - last 24 hr 05/03/20 05/03/20 05/03/20 10:39 17:15 17:15 WBC RBC Hgb Hct MCV MCH MCHC RDW Std Deviation RDW Coeff of [place] Plt Count MPV Immature Gran % (Auto) Neut % (Auto) Lymph % (Auto) [place] % (Auto) Eos % (Auto) Baso % (Auto) Neut # (Auto) Lymph # (Auto) [place] # (Auto) Eos # (Auto) Baso # (Auto) Immature Gran # (Auto) Sodium Potassium Chloride Carbon Dioxide Anion Gap BUN Creatinine Est Cr Clr Drug Dosing Est GFR ( Amer) Est GFR (Non-Af Amer) BUN/Creatinine Ratio Glucose POC Glucose Estimat Average Glucose Hemoglobin A1c Calcium Total Bilirubin AST ALT Alkaline Phosphatase Total Protein Albumin Globulin Albumin/Globulin Ratio TSH 0.592 Urine Color Urine Appearance Urine pH Ur Specific [place] Urine Protein Urine Glucose (UA) Urine Ketones Urine Blood Urine Nitrite Urine Bilirubin Urine Urobilinogen Ur Leukocyte Esterase Urine WBC (Auto) Urine RBC (Auto) U Hyaline Cast (Auto) U Epithel Cells (Auto) Urine Bacteria (Auto) COVID-19 Eval [facility], RNA, NAAT NEGATIVE 05/03/20 05/03/20 05/03/20 20:42 21:23 21:40 WBC 8.59 RBC 4.50 Hgb 13.3 Hct 41.9 MCV 93.1 MCH 29.6 MCHC 31.7 L RDW Std Deviation 48.2 H RDW Coeff of [place] 14.2 Plt Count 277 MPV 10.1 Immature Gran % (Auto) 0.1 Neut % (Auto) 74.5 Lymph % (Auto) 15.0 [place] % (Auto) 8.3 Eos % (Auto) 2.0 Baso % (Auto) 0.1 Neut # (Auto) 6.40 Lymph # (Auto) 1.29 [place] # (Auto) 0.71 H Eos # (Auto) 0.17 Baso # (Auto) 0.01 Immature Gran # (Auto) 0.01 Sodium Potassium Chloride Carbon Dioxide Anion Gap BUN Creatinine Est Cr Clr Drug Dosing Est GFR ( Amer) Est GFR (Non-Af Amer) BUN/Creatinine Ratio Glucose POC Glucose 67 L* 137 H Estimat Average Glucose Hemoglobin A1c Calcium Total Bilirubin AST ALT Alkaline Phosphatase Total Protein Albumin Globulin Albumin/Globulin Ratio TSH Urine Color Urine Appearance Urine pH Ur Specific [place] Urine Protein Urine Glucose (UA) Urine Ketones Urine Blood Urine Nitrite Urine Bilirubin Urine Urobilinogen Ur Leukocyte Esterase Urine WBC (Auto) Urine RBC (Auto) U Hyaline Cast (Auto) U Epithel Cells (Auto) Urine Bacteria (Auto) COVID-19 Eval Order SARS-CoV-2, RNA, NAAT 05/04/20 05/04/20 05/04/20 06:06 06:06 07:59 WBC RBC Hgb Hct MCV MCH MCHC RDW Std Deviation RDW Coeff of [place] Plt Count MPV Immature Gran % (Auto) Neut % (Auto) Lymph % (Auto) [place] % (Auto) Eos % (Auto) Baso % (Auto) Neut # (Auto) Lymph # (Auto) [place] # (Auto) Eos # (Auto) Baso # (Auto) Immature Gran # (Auto) Sodium 139 Potassium 3.9 Chloride 103 Carbon Dioxide 33 H Anion Gap 3.0 BUN 10 D Creatinine 0.77 Est Cr Clr Drug Dosing 59.6 Est GFR ( Amer) 87.5 Est GFR (Non-Af Amer) 75.5 BUN/Creatinine Ratio 13.5 Glucose 89 POC Glucose 94 Estimat Average Glucose Pending Hemoglobin A1c Pending Calcium 9.0 Total Bilirubin 0.5 AST 11 L ALT 18 Alkaline Phosphatase 41 L Total Protein 6.3 L Albumin 2.9 L Globulin 3.4 Albumin/Globulin Ratio 0.9 TSH Urine Color Urine Appearance Urine pH Ur Specific [place] Urine Protein Urine Glucose (UA) Urine Ketones Urine Blood Urine Nitrite Urine Bilirubin Urine Urobilinogen Ur Leukocyte Esterase Urine WBC (Auto) Urine RBC (Auto) U Hyaline Cast (Auto) U Epithel Cells (Auto) Urine Bacteria (Auto) COVID-19 Eval Order SARS-CoV-2, RNA, NAAT 05/04/20 05/04/20 08:13 12:02 WBC RBC Hgb Hct MCV MCH MCHC RDW Std Deviation RDW Coeff of [place] Plt Count MPV Immature Gran % (Auto) Neut % (Auto) Lymph % (Auto) [place] % (Auto) Eos % (Auto) Baso % (Auto) Neut # (Auto) Lymph # (Auto) [place] # (Auto) Eos # (Auto) Baso # (Auto) Immature Gran # (Auto) Sodium Potassium Chloride Carbon Dioxide Anion Gap BUN Creatinine Est Cr Clr Drug Dosing Est GFR ( Amer) Est GFR (Non-Af Amer) BUN/Creatinine Ratio Glucose POC Glucose 91 Estimat Average Glucose Hemoglobin A1c Calcium Total Bilirubin AST ALT Alkaline Phosphatase Total Protein Albumin Globulin Albumin/Globulin Ratio TSH Urine Color Yellow Urine Appearance Clear Urine pH 8.0 H Ur Specific [place] 1.013 Urine Protein Trace H Urine Glucose (UA) Negative Urine Ketones Negative Urine Blood Negative Urine Nitrite Negative Urine Bilirubin Negative Urine Urobilinogen Negative Ur Leukocyte Esterase Negative Urine WBC (Auto) 1-5 Urine RBC (Auto) 0-4 U Hyaline Cast (Auto) 0 U Epithel Cells (Auto) >30 H Urine Bacteria (Auto) Negative COVID-19 Eval Order SARS-CoV-2, RNA, NAAT PG Care Time/CCT Total # of Minutes Spent Total Time Spent with Patient: Total time spent is greater than 50% in coordination of care (as documented) at patient's floor/unit and/or counseling patient: Coding Level of Care Code 41157 Subseq Hosp Care Lvl 2 Diagnoses Nausea & vomiting R11.2 Vomiting Intractability: non-intractable Vomiting type: unspecified Clubbing of nail R68.3 COPD (chronic obstructive pulmonary disease) J44.9 Severe protein-calorie malnutrition E43 Acute lumbar radiculopathy M54.16 Chronic low back pain M54.5; G89.29 Vitamin D deficiency E55.9 Vitamin B12 deficiency E53.8 Restless leg syndrome G25.81 Diabetes mellitus type 2 in obese E11.69; E66.9 GERD (gastroesophageal reflux disease) K21.9 HTN (hypertension), benign I10 Obesity E66.9 Current smoker F17.200 AAA (abdominal aortic aneurysm) I71.4 Hyperlipidemia E78.5 Depression F32.9 DVT prophylaxis Z29.9 (1) Nausea & vomiting Vomiting Intractability: non-intractable Vomiting type: unspecified Qualified Code(s): R11.2 - Nausea with vomiting, unspecified
[2020-05-04] MEDS: PRAMIPEXOLE DIHYDROCHLO 0.5 MG TAB PO SCH (21:06)
[2020-05-04] MEDS: LIDOCAINE 5% 1 PATCH TD SCH (21:06)
[2020-05-04] MEDS: ENOXAPARIN INJ 40 MG/0.4 ML SYR SQ SCH (21:06)
[2020-05-04] MEDS: GABAPENTIN 300 MG CAP PO SCH (21:06)
[2020-05-04] MEDS: UMECLIDINIUM BROMIDE 62.5MCG/BLISTER 7 PUFFS/INHALER INH SCH (21:53)
[2020-05-05] MEDS: NSS + 20MEQ KCL 20 MEQ/1,000 ML BAG IV SCH ×2 (00:47→16:37)
[2020-05-05] MEDS ORDERED: Nursing to Pharmacy Communication SCH (01:15)
[2020-05-05] MEDS: INSULIN ASPART 100 UNITS/ML 3 ML PEN SC SCH ×3 (05:58→17:56)
[2020-05-05 06:23] LABS: Estimated Average Glucose 160 mg/dl; Hemoglobin A1C 7.2 % (4.5-5.6)
[2020-05-05] MEDS: METOCLOPRAMIDE HCL INJ 5 MG/ML 2 ML VIAL IV SCH ×3 (07:22→16:39)
[2020-05-05 08:13] LABS: BUN Creatinine Ratio 11.2 (10-20); Calcium 9.9 mg/dl (8.5-10.1); Creatinine Clr Calc Pharmacy 62.9 ml/min; Est GFR (African American) 93.4; Est GFR (Non-African American) 80.6; Potassium 3.9 mmol/L (3.5-5.1)
--- NOTE | 2020-05-05 08:16 | History & Physical Bridge Note ---
Date of Service May 05, 2020 History & Physical Bridge Note I have examined the patient, reviewed the History & Physical and in the interval since the performance of the History & Physical I have noted the following changes of clinical significance: no changes noted Proceed with EGD. risks/benefits and procedure discussed with patient, who agrees to proceed
--- NOTE | 2020-05-05 08:26 | Anesthesiology Consultation ---
Date of Service May 05, 2020 hx SHELDON hx COPD on 3l o2 at night Assessment & Plan (1) Encounter for pre-operative examination: History Surgery Operation Date: 05/05/20 16:45 Proposed Procedures p Esophagogastroduodenoscopy Dr. Zambrano - Silverio Zambrano MD Height/Weight Height: 5 ft 1 in Weight: 77.8 kg Allergies Allergy/AdvReac Type Severity Reaction Status Date / Time No Known Allergies Allergy Unverified 05/03/20 12:33 Medications Home Medications Medication Instructions Recorded Confirmed Last Taken cholecalciferol (vitamin D3) 25 mcg PO DAILY 05/03/20 05/03/20 Unknown [Vitamin D3] cyanocobalamin (vitamin B-12) 1,000 mcg PO DAILY 05/03/20 05/03/20 Unknown [Vitamin B-12] diltiazem HCl 180 mg PO DAILY 05/03/20 05/03/20 Unknown duloxetine 30 mg PO DAILY 05/03/20 05/03/20 Unknown duloxetine 60 mg PO DAILY 05/03/20 05/03/20 Unknown fenofibrate micronized 134 mg PO DAILY 05/03/20 05/03/20 Unknown gabapentin 600 mg PO TID 05/03/20 05/03/20 Unknown hydrochlorothiazide 25 mg PO DAILY 05/03/20 05/03/20 Unknown [id number] [Creon] 1 cap PO DIRECTED 05/03/20 05/03/20 Unknown liraglutide [Victoza 3-Shady] 1.8 mg SUBCUT QAM 05/03/20 05/03/20 Unknown lisinopril 40 mg PO DAILY 05/03/20 05/03/20 Unknown metformin 1,000 mg PO BID 05/03/20 05/03/20 Unknown omega-3 fatty acids [Fish Oil] 1,000 mg PO DAILY 05/03/20 05/03/20 Unknown ondansetron 4 mg TRANSLINGUAL Q8H PRN 05/03/20 05/03/20 Unknown pantoprazole 40 mg PO DAILY 05/03/20 05/03/20 Unknown pramipexole 1 mg PO HS 05/03/20 05/03/20 Unknown pravastatin 40 mg PO DAILY 05/03/20 05/03/20 Unknown ropinirole 1 mg PO HS 05/03/20 05/03/20 Unknown sucralfate 1 g PO DIRECTED PRN 05/03/20 05/03/20 Unknown tizanidine 4 mg PO Q8H PRN 05/03/20 05/03/20 Unknown tramadol 50 mg PO DIRECTED PRN 05/03/20 05/03/20 Unknown Active Medications Generic Name Dose Route Start Last Admin Trade Name Valenteq PRN Reason Stop Dose Admin Acetaminophen 650 mg 05/03/20 20:58 05/04/20 22:26 Acetaminophen 325 Mg Tab PO 06/02/20 20:57 650 mg Q4H PRN Administration pain/fever Lipase/Protease/Amylase 2 cap 05/04/20 07:30 05/04/20 17:04 Pancreaze (Lipase 10,500u) Cap PO 06/03/20 07:29 2 cap AC CLIVE Administration Cyanocobalamin 1,000 mcg 05/04/20 09:00 05/04/20 08:57 Cyanocobalamin 500 Mcg Tablet (Vitamin B-12) PO 06/03/20 08:59 1,000 mcg DAILY CLIVE Administration Diclofenac Sodium 2 gm 05/03/20 21:00 05/04/20 21:09 Diclofenac Sod 1% Gel 100 Gm Tube EXT 06/02/20 20:59 2 gm QID CLIVE Administration Diltiazem HCl 180 mg 05/04/20 09:00 05/04/20 08:57 Diltiazem Hcl 180 Mg Capcr PO 06/03/20 08:59 180 mg DAILY CLIVE Administration Duloxetine HCl 60 mg 05/03/20 20:58 05/04/20 08:58 Duloxetine Hcl 60 Mg Cap PO 06/02/20 20:57 60 mg DAILY CLIVE Administration Duloxetine HCl 30 mg 05/04/20 09:00 05/04/20 08:58 Duloxetine Hcl 30 Mg Cap PO 06/03/20 08:59 30 mg DAILY CLIVE Administration Enoxaparin Sodium 40 mg 05/03/20 21:30 05/04/20 21:06 Enoxaparin Inj 40 Mg/0.4 Ml Syr SQ 06/02/20 21:29 40 mg HS CLIVE Administration Fenofibrate 145 mg 05/04/20 09:00 05/04/20 09:00 Fenofibrate Nanocrystallized 145 Mg Tablet PO 06/03/20 08:59 145 mg DAILY CLIVE Administration Fish Oil 1 gm 05/04/20 09:00 05/04/20 09:00 [place]-3 (Purified Fish Oil) 1 Gm Cap PO 06/03/20 08:59 1 gm DAILY CLIVE Administration Gabapentin 600 mg 05/04/20 09:00 05/04/20 13:44 Gabapentin 600 Mg Tab PO 06/03/20 08:59 600 mg BID@0900,1400 CLIVE Administration Gabapentin 900 mg 05/04/20 21:00 05/04/20 21:06 Gabapentin 300 Mg Cap PO 06/03/20 20:59 900 mg HS CLIVE Administration Hydrochlorothiazide 25 mg 05/04/20 09:00 05/04/20 08:58 Hydrochlorothiazide 25 Mg Tab PO 06/03/20 08:59 25 mg DAILY CLIVE Administration Potassium Chloride/Sodium Chloride 20 meq in 1,000 mls @ 75 mls/hr 05/03/20 22:00 05/05/20 08:27 Normal Saline W/20 Meq Kcl IV 06/02/20 21:59 0 mls/hr .[id number] CLIVE Infusion Insulin Aspart 0 units 05/05/20 06:00 05/05/20 05:58 Insulin Aspart 100 Units/Ml 3 Ml Pen SC 06/04/20 05:59 Not Given Q6 CLIVE Lidocaine 1 patch 05/03/20 21:30 05/04/20 21:06 Lidocaine 5% 1 Patch TD 06/02/20 21:29 1 patch HS CLIVE Administration Lisinopril 40 mg 05/04/20 09:00 05/04/20 09:01 Lisinopril 40 Mg Tab PO 06/03/20 08:59 40 mg DAILY CLIVE Administration Metoclopramide HCl 5 mg 05/04/20 07:30 05/05/20 07:22 Metoclopramide Hcl Inj 5 Mg/Ml 2 Ml Vial IV 06/03/20 07:29 5 mg AC CLIVE Administration Miscellaneous 1 ea 05/04/20 08:59 05/04/20 09:06 Remove Nicoderm Patch N/A 06/03/20 08:58 1 ea DAILY@0859 CLIVE Administration Miscellaneous 1 ea 05/04/20 09:00 05/04/20 09:06 Remove Lidoderm Patch N/A 06/03/20 08:59 1 ea DAILY CLIVE Administration Nicotine 21 mg 05/03/20 16:15 05/04/20 10:21 Nicotine 21 Mg/24 Hr Tdsy TD 06/02/20 16:14 21 mg QAM CLIVE Administration Pantoprazole Sodium 40 mg 05/04/20 09:00 05/04/20 09:00 Pantoprazole 40 Mg Tab PO 06/03/20 08:59 40 mg DAILY CLIVE Administration Pramipexole Dihydrochloride 1 mg 05/03/20 22:45 05/04/20 21:06 Pramipexole Dihydrochlo 0.5 Mg Tab PO 06/02/20 22:44 1 mg HS CLIVE Administration Pravastatin Sodium 40 mg 05/04/20 09:00 05/04/20 09:00 Pravastatin Sod 40 Mg Tab PO 06/03/20 08:59 40 mg DAILY CLIVE Administration Tramadol HCl 100 mg 05/03/20 20:58 05/04/20 21:16 Tramadol Hcl 50 Mg Tablet PO 06/02/20 20:57 100 mg Q6 PRN Administration Pain Umeclidinium [place] 1 puffs 05/04/20 21:00 05/04/20 21:53 Umeclidinium [place] 62.5mcg/Blister 7 Puffs/Inhaler INH 06/03/20 20:59 1 puffs QAM CLIVE Administration Vitamin D 25 units 05/04/20 09:00 05/04/20 09:05 Cholecalciferol 1,000 Units 25 Mcg Tab PO 06/03/20 08:59 25 units DAILY CLIVE Administration NPO Date Last Intake of Fluids: 05/04/20 Past Medical History Medical History AAA (abdominal aortic aneurysm) Acute lumbar radiculopathy Chronic low back pain Current smoker Depression Diabetes mellitus type 2 in obese GERD (gastroesophageal reflux disease) HTN (hypertension), benign Hyperlipidemia Obesity Peptic ulcer disease Restless leg syndrome Vitamin B12 deficiency Vitamin D deficiency Past Family History Family History Father Heart disease Brother Kidney disease Mother Gastric cancer Family/Other Testicular cancer Past Surgical History Surgical History History of bilateral tubal ligation History of carpal tunnel release Left History of lumbar fusion History of repair of rotator cuff Right Social History Smoking Status: Current every day smoker tobacco type: cigarettes Smoking cigarettes per day: 30 Hx Alcohol Use: No Hx Substance Use: No Physical Exam Vital Signs Last Vital Signs Temp 36.5 C 05/05/20 08:41 Pulse 77 05/05/20 08:41 Resp 18 05/05/20 08:41 BP 169/107 H 05/05/20 08:41 Pulse Ox 94 05/05/20 08:41 Testing Laboratory Results 05/03/20 21:40 05/05/20 07:25 Hemoglobin A1c 7.2 % (4.5-5.6) H 05/04/20 06:06 Urine Color Yellow 05/04/20 08:13 Urine Appearance Clear (Clear) 05/04/20 08:13 Urine pH 8.0 (4.5-7.5) H 05/04/20 08:13 Ur Specific [place] 1.013 (1.000-1.030) 05/04/20 08:13 Urine Protein Trace (Negative) H 05/04/20 08:13 Urine Glucose (UA) Negative (Negative) 05/04/20 08:13 Urine Ketones Negative (Negative) 05/04/20 08:13 Urine Nitrite Negative (Negative) 05/04/20 08:13 Ur Leukocyte Esterase Negative (Negative) 05/04/20 08:13 Urine WBC (Auto) 1-5 /hpf (0-5) 05/04/20 08:13 Urine RBC (Auto) 0-4 /hpf (0-4) 05/04/20 08:13 U Hyaline Cast (Auto) 0 /lpf (0-5) 05/04/20 08:13 U Epithel Cells (Auto) >30 /lpf (0-5) H 05/04/20 08:13 Urine Bacteria (Auto) Negative (Negative) 05/04/20 08:13 05/05/20 05/05/20 05/04/20 08:12 05:56 20:50 POC Glucose 119 H 103 H 97
[2020-05-05] MEDS ORDERED: ALBUTEROL HFA INHALER 8.5 GM ONE (09:09)
[2020-05-05] MEDS ORDERED: LIDOCAINE HCL 2% 2 ML VIAL/AMP(20MG/ML) INFIL ONE (09:09)
[2020-05-05] MEDS ORDERED: PROPOFOL IV EMULSION 10 MG/ML 20 ML VIAL IV ONE (09:11)
[2020-05-05] MEDS ORDERED: ONDANSETRON INJ 2 MG/ML 2 ML VIAL ONE (09:12)
--- NOTE | 2020-05-05 09:35 | GI REPORT ---
Patient Name: Silvia Church Procedure Date: 05/05/2020 9:13 AM Date of : 1945 Admit Type: Inpatient Age: 74 Gender: Female Attending MD: Silverio Zambrano MD Procedure: Upper GI endoscopy Providers: Silverio Zambrano MD Referring MD: Referred Self Indications: Nausea with vomiting Medicines: Monitored Anesthesia Care Complications: No immediate complications. Estimated blood loss: None. Estimated Blood Loss: Estimated blood loss: none. Procedure: Pre-Anesthesia Assessment: - Prior Anticoagulants: The patient has taken no previous anticoagulant or antiplatelet agents. - ASA Grade Assessment: II - A patient with mild systemic disease. After obtaining informed consent, the endoscope was passed under direct vision. Throughout the procedure, the patient's blood pressure, pulse, and oxygen saturations were monitored continuously. The Scope was introduced through the mouth, and advanced to the second part of duodenum. The upper GI endoscopy was accomplished without difficulty. The patient tolerated the procedure well. Findings: Mildly severe esophagitis with no bleeding was found. Cells for cytology were obtained by brushing. Estimated blood loss: none. Diffuse moderate inflammation characterized by erosions and erythema was found in the stomach. Biopsies were taken with a cold forceps for Helicobacter pylori testing. Estimated blood loss: none. The duodenal bulb and second portion of the duodenum were normal. Impression: - Mildly severe candidiasis esophagitis. Cells for cytology obtained. - Gastritis. Biopsied. - Normal duodenal bulb and second portion of the duodenum. Recommendation: - Return patient to [facility] for ongoing care. - Resume previous diet today. - Await pathology results. -protonix 40 mg daily -anti-emetics prn -awaiit cytology results Silverio Zambrano MD 05/05/2020 9:34:41 AM This report has been signed electronically. Note Initiated On: 05/05/2020 9:13 AM Number of Addenda: 0 I attest to the content of the Intraoperative Record and orders documented therein, exceptions below {[id number]}
--- NOTE | 2020-05-05 09:37 | Procedure Note ---
Procedure Note Date of Service May 05, 2020 GI brief procedure note EGD findings: esophagitis, brushings for milton taken; erosions and gastritis, biopsied. Recs: start protonix 40 mg daily f/u path and cytology results diet as tolerated anti-emetics prn Silverio Zambrano MD Gastroenterology Coding
[2020-05-05] MEDS: PANCREAZE (LIPASE 10,500U) CAP PO SCH ×3 (10:32→16:38)
[2020-05-05] MEDS: dilTIAZem HCL 180 MG CAPCR PO SCH (10:38)
[2020-05-05] MEDS: FENOFIBRATE NANOCRYSTALLIZED 145 MG TABLET PO SCH (10:38)
[2020-05-05] MEDS: OMEGA-3 (PURIFIED FISH OIL) 1 GM CAP PO SCH (10:38)
[2020-05-05] MEDS: PRAVASTATIN SOD 40 MG TAB PO SCH (10:38)
[2020-05-05] MEDS: CYANOCOBALAMIN 500 MCG TABLET (VITAMIN B-12) PO SCH (10:39)
[2020-05-05] MEDS: DULoxetine HCL 30 MG CAP PO SCH (10:39)
[2020-05-05] MEDS: DULoxetine HCL 60 MG CAP PO SCH (10:40)
[2020-05-05] MEDS: PANTOprazole 40 MG TAB PO SCH (10:40)
[2020-05-05] MEDS: hydroCHLOROthiazide 25 MG TAB PO SCH (10:41)
[2020-05-05] MEDS: lisinopril 40 MG TAB PO SCH (10:41)
[2020-05-05] MEDS: CHOLECALCIFEROL 1,000 UNITS 25 MCG TAB PO SCH (10:42)
[2020-05-05] MEDS: GABAPENTIN 600 MG TAB PO SCH ×2 (10:44→14:16)
[2020-05-05] MEDS: NICOTINE 21 MG/24 HR TDSY TD SCH (10:44)
[2020-05-05] MEDS: DICLOFENAC SOD 1% GEL 100 GM TUBE EXT SCH ×4 (10:45→21:08)
[2020-05-05] MEDS: UMECLIDINIUM BROMIDE 62.5MCG/BLISTER 7 PUFFS/INHALER INH SCH (10:45)
[2020-05-05] MEDS: traMADol HCL 50 MG TABLET PO PRN ×2 (10:59→21:07)
--- NOTE | 2020-05-05 11:03 | Anesthesiology Progress Note ---
Date of Service May 05, 2020 Anesthesia Post Procedure Vital Signs Vital Signs: Temp Pulse Pulse Resp BP BP Pulse Ox 05/05/20 10:47 36.7 C 74 16 160/82 H 93 05/05/20 10:02 75 18 161/85 H 94 05/05/20 09:47 69 20 155/84 H 91 05/05/20 09:32 79 16 138/77 94 05/05/20 08:41 36.5 C 77 77 18 169/107 H 94 05/05/20 07:50 36.5 C 79 18 166/90 H 95 05/04/20 23:01 36.4 C L 67 14 146/79 H 93 05/04/20 15:23 92 05/04/20 14:39 36.3 C L 77 18 159/80 H 94 Pain Intensity Lower Back: Pain Intensity: 5 Head: Pain Intensity: 8 Transfer of Care Handoff Completed per policy Notes Mental Status: alert / awake / arousable and participated in evaluation Patient Amnestic to Procedure: Yes Nausea / Vomiting: adequately controlled Pain: adequately controlled Airway Patency, RR, SpO2: stable & adequate BP & HR: stable & adequate Hydration State: stable & adequate Anesthetic Complications: no major complications apparent and Pt Satisfied with anesthetic care
[2020-05-05] MEDS: ACETAMINOPHEN 325 MG TAB PO PRN (16:39)
--- NOTE | 2020-05-05 19:25 | Hospitalist Progress Note ---
Date of Service May 05, 2020 Assessment & Plan (1) Nausea & vomiting: With associated 20-25 pound weight loss since fall 2019. -esophagitis appearing likely as culprit - PPI started, advance diet CT abd/pelvis findings noted - chronic pancreatitis seen - takes creon. TSH wnl. (2) Clubbing of nail: concerning for chronic hypoxemia 2nd to COPD in setting of long-standing tobacco use will need outpatient PFTs started long-acting antimuscarinic agent discussed smoke cessation (3) COPD (chronic obstructive pulmonary disease): noted needs to quit smoking - discussed no exacerbation (4) Severe protein-calorie malnutrition: 25 pounds weight loss last 2-3 months added MVI, boost, etc EGD to launch w/u for cause of this (5) Acute lumbar radiculopathy: With acute on chronic right-sided lumbar radiculopathy Radicular pain extends down right buttock, into posterior right thigh and to the knee will need ortho-spine f/u and pain management f/u Continue tramadol as needed for Continue gabapentin for neuropathic pain (6) Chronic low back pain: Continue tramadol prn see MRI l-spine findings L1-L2 disc herniation (7) Vitamin D deficiency: Continue home vitamin D (8) Vitamin B12 deficiency: Continue home vitamin B12 (9) Restless leg syndrome: continue Mirapex and discontinue Requip (10) Diabetes mellitus type 2 in obese: Check hemoglobin A1c Novolog SSI (11) GERD (gastroesophageal reflux disease): Continue PPI (12) HTN (hypertension), benign: Continue lisinopril, HCTZ, and diltiazem (13) Obesity: BMI 32.4 (14) Current smoker: Counselled to quit Long-standing usage Nicotine patch (15) AAA (abdominal aortic aneurysm): Noted incidentally to have a 3.1 cm suprarenal AAA Needs follow-up with vascular surgery as an outpatient for surveillance cont statin (16) Hyperlipidemia: Continue pravastatin and fenofibrate (17) Depression: Continue home duloxetine (18) DVT prophylaxis: Lovenox 40mg daily PT/OT consultations hopefully home / close outpt f/u tomorrow Admission and Anticipated Discharge Date Admission Date: May 04, 2020 Subjective discussed EGD results. feeling hungry notes that she's now off victoza, discussed eating habits as it relates to DM control - potatoes a fairly big problem has been doing well without smoking - wonders about maybe being able to quit now Review of Systems Review of Systems: All systems reviewed & are unremarkable except as noted in HPI & below Physical Exam Physical Exam: gen aaox3 pleasant nad heent nc at mmm breathing unlabored no accessory muscles good effort skin no rashes no pallor or icterus neuro no focal deficits Results & Data Results & Data ([facility]) Vital Signs (Past 12 Hours) Vital Signs Temp Pulse Pulse Resp BP Pulse Ox 05/05/20 15:44 98.4 F 73 18 147/93 H 93 05/05/20 10:47 98.1 F 74 16 160/82 H 93 05/05/20 10:02 75 18 161/85 H 94 05/05/20 09:47 69 20 155/84 H 91 05/05/20 09:32 79 16 138/77 94 05/05/20 08:41 97.7 F 77 77 18 169/107 H 94 05/05/20 07:50 97.7 F 79 18 166/90 H 95 PG Care Time/CCT Total # of Minutes Spent Total Time Spent with Patient: Total time spent is greater than 50% in coordination of care (as documented) at patient's floor/unit and/or counseling patient: Coding Level of Care Code 53746 Subseq Hosp Care Lvl 3 Diagnoses Nausea & vomiting R11.2 Vomiting Intractability: non-intractable Vomiting type: unspecified Clubbing of nail R68.3 COPD (chronic obstructive pulmonary disease) J44.9 Severe protein-calorie malnutrition E43 Acute lumbar radiculopathy M54.16 Chronic low back pain M54.5; G89.29 Vitamin D deficiency E55.9 Vitamin B12 deficiency E53.8 Restless leg syndrome G25.81 Diabetes mellitus type 2 in obese E11.69; E66.9 GERD (gastroesophageal reflux disease) K21.9 HTN (hypertension), benign I10 Obesity E66.9 Current smoker F17.200 AAA (abdominal aortic aneurysm) I71.4 Hyperlipidemia E78.5 Depression F32.9 DVT prophylaxis Z29.9 (1) Nausea & vomiting Vomiting Intractability: non-intractable Vomiting type: unspecified Qualified Code(s): R11.2 - Nausea with vomiting, unspecified
[2020-05-05] MEDS: LIDOCAINE 5% 1 PATCH TD SCH (21:08)
[2020-05-05] MEDS: ENOXAPARIN INJ 40 MG/0.4 ML SYR SQ SCH (21:09)
[2020-05-05] MEDS: PRAMIPEXOLE DIHYDROCHLO 0.5 MG TAB PO SCH (21:10)
[2020-05-05] MEDS: GABAPENTIN 300 MG CAP PO SCH (21:11)
[2020-05-06] MEDS: INSULIN ASPART 100 UNITS/ML 3 ML PEN SC SCH (00:32)
[2020-05-06] MEDS ORDERED: NURSING DECISION MEDICATION ONE (01:45)
[2020-05-06] MEDS ORDERED: Nursing to Pharmacy Communication SCH (04:45)
[2020-05-06] MEDS: traMADol HCL 50 MG TABLET PO PRN (05:01)
[2020-05-06] MEDS ORDERED: ONDANSETRON INJ 2 MG/ML 2 ML VIAL IV PRN (05:51)
[2020-05-06] MEDS: NSS + 20MEQ KCL 20 MEQ/1,000 ML BAG IV SCH (06:00)
[2020-05-06] MEDS: tiZANidine HCL 4 MG TABLET PO PRN ×2 (06:44→08:14)
[2020-05-06] MEDS ORDERED: INSULIN ASPART 100 UNITS/ML 3 ML PEN SC SCH (07:30)
[2020-05-06] MEDS: METOCLOPRAMIDE HCL INJ 5 MG/ML 2 ML VIAL IV SCH (08:09)
[2020-05-06] MEDS: DULoxetine HCL 60 MG CAP PO SCH (08:10)
[2020-05-06] MEDS: DULoxetine HCL 30 MG CAP PO SCH (08:10)
[2020-05-06] MEDS: PANCREAZE (LIPASE 10,500U) CAP PO SCH (08:10)
[2020-05-06] MEDS: hydroCHLOROthiazide 25 MG TAB PO SCH (08:11)
[2020-05-06] MEDS: dilTIAZem HCL 180 MG CAPCR PO SCH (08:11)
[2020-05-06] MEDS: PANTOprazole 40 MG TAB PO SCH (08:11)
[2020-05-06] MEDS: lisinopril 40 MG TAB PO SCH (08:11)
[2020-05-06] MEDS: FENOFIBRATE NANOCRYSTALLIZED 145 MG TABLET PO SCH (08:11)
[2020-05-06] MEDS: OMEGA-3 (PURIFIED FISH OIL) 1 GM CAP PO SCH (08:11)
[2020-05-06] MEDS: CYANOCOBALAMIN 500 MCG TABLET (VITAMIN B-12) PO SCH (08:11)
[2020-05-06] MEDS: PRAVASTATIN SOD 40 MG TAB PO SCH (08:12)
[2020-05-06] MEDS: GABAPENTIN 600 MG TAB PO SCH (08:12)
[2020-05-06] MEDS: CHOLECALCIFEROL 1,000 UNITS 25 MCG TAB PO SCH (08:13)
[2020-05-06] MEDS: NICOTINE 21 MG/24 HR TDSY TD SCH (08:13)
[2020-05-06] MEDS: UMECLIDINIUM BROMIDE 62.5MCG/BLISTER 7 PUFFS/INHALER INH SCH (08:14)
[2020-05-06] MEDS: DICLOFENAC SOD 1% GEL 100 GM TUBE EXT SCH (08:15)
--- NOTE | 2020-05-06 20:06 | Discharge Summary ---
Date of Service May 06, 2020 Admission HPI Per Admitting Provider This patient is a very pleasant 74-year-old female with a history of HTN, PUD/GERD, DM 2, depression, RLS, hyperlipidemia, lumbar radiculopathy, vitamin B12 and vitamin D deficiencies, and a heavy smoker, who presents to the ER with intractable nausea/vomiting that is been going on for 2 months. She reports that even with drinking a cup of water, she will vomit. However, sometimes she is able to tolerate drinking milk for some reason as well as occasional Jell-O. She has also had heartburn every other day for the last 2 months and has had a 20 pound weight loss. She previously had an issue with chronic diarrhea which resolved with Creon last year, however for the last 2 months, she is only moving her bowels small amounts at a time of loose or liquid stools. Denies any blood in her vomit or blood in the stool. No melena. She denies any abdominal pains. She believes she had an EGD and a colonoscopy at [facility] over a year ago that she believes were normal. The EGD at that time was performed for a complaint of dysphagia. She reports she has been going through an outpatient work-up for her daily nausea/vomiting to include a barium swallow this past Tuesday-she has not heard the results of this yet. Her daughter finally brought her into the ER as they are just extremely frustrated that they cannot figure out why this is continuing to go on and her weight loss and weakness are worsening. She does report feeling lightheaded with standing up. She denies any chest pains or shortness of breath. No fever/chills/sweats. She has also been dealing with acute on chronic lumbar radiculopathy for the last several months as well. She takes tramadol for this at home but has been taking tramadol for years. Of note, she has been on Victoza which she believes was started about 6 months ago. Her laboratory values to include CBC, CMP, troponin, lipase were all normal. She had an MRI of the lumbar spine for her acute on chronic right lower extremity radicular pain and was found to have a large right paracentral abnormality at the L1 level thought to be a disc extrusion from the L1-L2 disc space resulting in severe narrowing of the central canal and right lateral reces s at this level. In the ER, she was given IV fluids, IV morphine for her lower back pain, IV Zofran, and 1 dose of IV Reglan. After receiving the Zofran, she attempted a p.o. trial in the ER and threw up the water promptly. She will be admitted for more of a work-up of intractable nausea/vomiting, weight loss. Principal Diagnosis esophagitis Discharge Exam pleasant nad heent nc at mmm breathing unlabored no accessory muscles good effort skin no rashes no pallor or icterus Discharge Data Allergies Allergy/AdvReac Type Severity Reaction Status Date / Time No Known Allergies Allergy Unverified 05/03/20 12:33 Consultations 05/03/20 16:06 ED Decision to Admit Stat 05/03/20 20:58 Consult Gastroenterology Routine Consult Health Information Management Stat Procedures Performed Operation Date: 05/05/20 16:45 Actual Procedures p EGD Biopsy Cytology - Silverio Zambrano MD Ordered Studies 05/03/20 10:41 CT Abd and Pelvis [CT abd pelvis IV con only] Stat 05/03/20 12:26 MR lumbar spine wo/w con Stat Hospital Course (1) Nausea & vomiting: With associated 20-25 pound weight loss since fall 2019. -esophagitis appearing likely as culprit - able to eat, stable for home - PPI BID and H2 BID for now, then over the ensuing weeks will gradually reduce acid suppression regimen CT abd/pelvis findings noted - chronic pancreatitis seen - takes creon. TSH wnl. (2) Clubbing of nail: concerning for chronic hypoxemia 2nd to COPD in setting of long-standing tobacco use will need outpatient PFTs started long-acting antimuscarinic agent discussed smoke cessation (3) COPD (chronic obstructive pulmonary disease): noted needs to quit smoking - discussed multiple times no exacerbation (4) Severe protein-calorie malnutrition: 25 pounds weight loss last 2-3 months possibly all related to above and with poor PO intake from victoza/vomiting/esophagitis - this is possible - but will need ongoing close outpt f/u in this regard in regards to sugar control - discussed that being off victoza, rather than substituting another medication, she should strongly consider just eating less simple/starchy carbs - discussed checking postprandial glucoses to learn from how food effects her metabolism (5) Acute lumbar radiculopathy: With acute on chronic right-sided lumbar radiculopathy Radicular pain extends down right buttock, into posterior right thigh and to the knee will need ortho-spine f/u and pain management f/u (asked to have this scheduled) Continue tramadol as needed for Continue gabapentin for neuropathic pain (6) Chronic low back pain: Continue tramadol prn see MRI l-spine findings L1-L2 disc herniation (7) Vitamin D deficiency: Continue home vitamin D (8) Vitamin B12 deficiency: Continue home vitamin B12 (9) Restless leg syndrome: continue Mirapex and discontinue Requip (10) Diabetes mellitus type 2 in obese: Check hemoglobin A1c Novolog SSI (11) GERD (gastroesophageal reflux disease): Continue PPI (12) HTN (hypertension), benign: Continue lisinopril, HCTZ, and diltiazem (13) Obesity: BMI 32.4 (14) Current smoker: Counselled to quit Long-standing usage Nicotine patch (15) AAA (abdominal aortic aneurysm): Noted incidentally to have a 3.1 cm suprarenal AAA Needs follow-up with vascular surgery as an outpatient for surveillance cont statin (16) Hyperlipidemia: Continue pravastatin and fenofibrate (17) Depression: Continue home duloxetine (18) DVT prophylaxis: Lovenox 40mg daily PT/OT consultations hopefully home / close outpt f/u tomorrow Total Time Total Time Spent Total Time Spent (In Minutes): >30 Discharge Plan Discharge Items Patient Disposition: Home - Self-Care Reason For Visit: INTRACTABLE NAUSEA/VOMITING Discharge Diagnosis: esophagitis Activity: Resume your previous activity Non-emergency contact: Primary Care Provider Call non-emergency contact if: you have any medication questions, your symptoms worsen and your pain is not controlled Follow-up/Referrals: Manny Bland DO [Primary Care Provider] - 05/13/20 2:00 pm Diet: Carb Consistent or DM2 Addtl Attending Provider Instructions: esophagitis -this means inflammation of your esophagus (the tube that goes from your mouth to your stomach) -since you don't drink large amounts of alcohol and don't take anti- inflammatories, it's most likely that what came about is that the victoza led to nausea/vomiting - and then the vomiting led to inflammation of your esophagus -definitely stop the victoza as the main probable culprit in the nausea/vomiting -to calm down the esophageal inflammation (esophagitis) we'll have you take the following medicines -for the next 7 days, take BOTH famotidine 20mg twice a day AND pantoprazole 40mg twice a day -after that, stop the famotidine, but continue to take the pantoprazole 40mg twice a day for another 2 weeks -after that, reduce the pantoprazole to 40mg once a day for another 2 weeks -after that, try stopping the pantoprazole entirely and see how you do --> if the nausea/vomiting/etc comes back - then we'd want you seeing gastroenterology again --->Dr Zambrano also took some brushings when he did the scope -the results of that should be back by next week; you can follow up with him/Dr Alvarez to review the results Diabetes -as we discussed, stopping the victoza will allow your sugars to go higher - which can be a major problem since high sugars clog arteries. because of this, the higher you run/the longer you run high, the more you'll clog up blood vessels you can't get back -also as we discussed, however, is that most of type 2 diabetes is caused by the types of foods we eat (starches, sugars) more than just our genetics or our metabolism -because of this, if you really work to reduce the starches (and sugars) you eat, then you should be able to get your sugars under better control - even with less meds -as we discussed, a nice trick to learn is checking your sugar about 1-2 hours AFTER you eat - this will give you "cause and effect" on what you eat and how it impacts your sugars. typically anything that bumps your sugar to higher than ~150-160 when you check about 2 hours after eating will be foods that are too starchy or sugary for your body to handle - and avoiding those kinds of foods will allow you to have better sugar control - usually even with less medications smoking -since you've been off cigarettes since admission, now would be the perfect time to quit smoking - things like esophagitis don't heal nearly as quickly when people smoke (smoking constricts blood vessels so that slows healing) -it's also quite likely that you have some degree of COPD from the smoking -- and quitting now can help that from getting worse -additionaly - people with COPD tend to do better with some maintenance inhalers - we've started one called spiriva that you should take once a day every day; as well as an inhaler called albuterol that you can take up to every 4 hours if needed for shortness of breath/wheezing -Dr Alvarez will then work on getting you set up for what are called pulmonary function tests - breathing measurements - to truly diagnose COPD requires doing this - and it can help show the severity - and whether or not you might need more inhalers weight loss -once the nausea has improved, your weight should start to increase - obviously this will need to be followed closely - if you continue to lose weight or if your weight doesn't start to stabilize/increase then we'd need to investigate if there is anything else causing the weight loss --> so follow closely w Dr Alvarez in this regard, and weigh yourself at least once a week so we can track how you're doing Pending Studies at Discharge: No Stand-Alone Forms: My [facility], Smoking Cessation Medications and DC Order Prescriptions: New famotidine 20 mg tablet 20 mg PO BID Qty: 14 RF: 0 pantoprazole 40 mg tablet,delayed release (DR/EC) 40 mg PO BID Qty: 60 RF: 0 Continued pramipexole 1 mg tablet 1 mg PO HS RF: 0 metformin 500 mg tablet 1,000 mg PO BID RF: 0 gabapentin 600 mg tablet 600 mg PO TID RF: 0 ropinirole 1 mg tablet 1 mg PO HS RF: 0 pravastatin 40 mg tablet 40 mg PO DAILY RF: 0 diltiazem HCl 180 mg capsule,extended release 24hr 180 mg PO DAILY RF: 0 tizanidine 4 mg tablet 4 mg PO Q8H PRN (Reason: Muscle Spasm) RF: 0 sucralfate 1 gram tablet 1 g PO DIRECTED PRN (Reason: Indigestion) RF: 0 cyanocobalamin (vitamin B-12) [Vitamin B-12] 1,000 mcg Tablet 1,000 mcg PO DAILY RF: 0 tramadol 50 mg tablet 50 mg PO DIRECTED PRN (Reason: Pain) RF: 0 fenofibrate micronized 134 mg capsule 134 mg PO DAILY RF: 0 hydrochlorothiazide 25 mg tablet 25 mg PO DAILY RF: 0 lisinopril 40 mg tablet 40 mg PO DAILY RF: 0 ondansetron 4 mg tablet,disintegrating 4 mg translingual Q8H PRN (Reason: Nausea) RF: 0 omega-3 fatty acids Capsule 1,000 mg PO DAILY RF: 0 duloxetine 30 mg capsule,delayed release(DR/EC) 30 mg PO DAILY RF: 0 duloxetine 60 mg capsule,delayed release(DR/EC) 60 mg PO DAILY RF: 0 cholecalciferol (vitamin D3) [Vitamin D3] 25 mcg (1,000 unit) Tablet 25 mcg PO DAILY RF: 0 Creon 24,000-76,000 -120,000 unit capsule,delayed release(DR/EC) 1 cap PO DIRECTED RF: 0 Discontinued pantoprazole 40 mg tablet,delayed release (DR/EC) 40 mg PO DAILY RF: 0 Victoza 3-Shady 0.6 mg/0.1 mL (18 mg/3 mL) pen injector 1.8 mg SUBCUT QAM RF: 0 Discharge Orders: Discharge Order (Routine); Ordered 05/06/20 Ordered By: Florencio Zimmerman/Other Patient Handouts: Esophagitis, Managing Type 2 Diabetes, Understanding Gastritis Admission Data Admit Date/Time: 05/04/20 12:38 Attending Provider: Florencio Boggs Admit Provider: Krystal Tena Primary Care Provider: Manny Bland Other Providers: Krystal Tena ; Silverio Zambrano ; Junito Holliday Other Interventions: Discharge Summary Assessment (RN) Last Done: 05/06/20 09:46 Coding Level of Care Code D/C Day Management >30 mins Diagnoses Nausea & vomiting R11.2 Vomiting Intractability: non-intractable Vomiting type: unspecified Clubbing of nail R68.3 COPD (chronic obstructive pulmonary disease) J44.9 Severe protein-calorie malnutrition E43 Acute lumbar radiculopathy M54.16 Chronic low back pain M54.5; G89.29 Vitamin D deficiency E55.9 Vitamin B12 deficiency E53.8 Restless leg syndrome G25.81 Diabetes mellitus type 2 in obese E11.69; E66.9 GERD (gastroesophageal reflux disease) K21.9 HTN (hypertension), benign I10 Obesity E66.9 Current smoker F17.200 AAA (abdominal aortic aneurysm) I71.4 Hyperlipidemia E78.5 Depression F32.9 DVT prophylaxis Z29.9
== END 2020-05-06 11:12 | disposition home or self-care (01) | DRG 368 ==
LOC: ED 09:47 → 3W 09:47 → SUATTDRO 17:29 → 3W 18:58 → SUATTDRO 05-04 12:38

== ENCOUNTER 2020-11-07 22:13 | Observation (INO) ==
[2020-11-07 22:40] LABS: Appearance Urine Clear (Clear); Bacteria Urine Automated Negative (Negative); Bilirubin Urine Negative (Negative); Blood Urine Negative (Negative); Color Urine Dark Yellow; Epithelial Cell Urine Auto >30 /lpf (0-5); Glucose Urine UA Negative (Negative); Ketones Urine Trace (Negative); Leukocyte Esterase Urine 1+ (Negative); Nitrite Urine Negative (Negative); Protein Urine 2+ (Negative); Specific Gravity Urine 1.022 (1.000-1.030); Urobilinogen Urine Negative (Negative)
[2020-11-07 22:54] LABS: Albumin Level 3.1 gm/dl (3.4-5.0); BUN Creatinine Ratio 18.7 (10-20); Calcium 9.3 mg/dl (8.5-10.1); Creatinine Clr Calc Pharmacy 44.3 ml/min; Est GFR (African American) 57.7 ml/min; Est GFR (Non-African American) 49.8 ml/min; Potassium 3.8 mmol/L (3.5-5.1)
[2020-11-07 22:57] LABS: Albumin Globulin Ratio 0.8 (0.9-2); Basophils # (auto) 0.01 K/uL (0-0.2); Basophils % (auto) 0.1 %; Bilirubin,Total 0.3 mg/dl (0.2-1); Eosinophils # (auto) 0.12 K/uL (0-0.5); Eosinophils % (auto) 1.5 %; Globulin 3.8 gm/dl (2.5-4.0); Hematocrit (blood only) 40.2 % (37-47); Hemoglobin 13.5 g/dL (12.0-16.0); Immature Granulocytes # (auto) 0.02 K/uL (0.00-0.02); Immature Granulocytes % (auto) 0.3 %; Lymphocytes # (auto) 1.98 K/uL (1.2-3.4); Lymphocytes % (auto) 24.8 %; Mean Corpuscular Hemoglobin 30.1 pg (25-34); Mean Corpuscular Hgb Conc 33.6 g/dL (32-36); Mean Corpuscular Volume 89.7 fL (80-100); Mean Platelet Volume 10.2 fL (7.4-10.4); Monocytes # (auto) 0.65 K/uL (0.11-0.59); Monocytes % (auto) 8.1 %; Neutrophils % (auto) 65.2 %; Platelet Count 303 K/uL (130-400); RDW Coefficient of Variation 14.3 % (11.5-14.5); RDW Standard Deviation 47.1 fL (36.4-46.3); Red Blood Count 4.48 M/uL (4.2-5.4); Total Protein 6.9 gm/dl (6.4-8.2); White Blood Count 7.98 K/uL (4.8-10.8)
[2020-11-07 23:32] LABS: RBC Urine Automated 0-4 /hpf (0-4)
[2020-11-08] MEDS ORDERED: SODIUM CHLORIDE 0.9% 1000ML 500 ML IV ONE (00:12)
[2020-11-08] MEDS ORDERED: SODIUM CHLORIDE 0.9% 1000ML 1,000 ML IV SCH (00:15)
[2020-11-08 00:44] LABS: Amphetamines+Metham, Urine Neg (Neg); Barbiturates, Urine Neg (Neg); Benzodiazepine, Urine Neg (Neg); Cocaine, Urine Neg (Neg); MDMA (Ecstacy), Urine Pos (Neg); Methadone, Urine Neg (Neg); Opiate, Urine Pos (Neg); Phencyclidine, Urine Neg (Neg)
[2020-11-08] MEDS ORDERED: NALOXONE HCL 0.4 MG/1 ML VIAL/CARP IV STA (01:54)
[2020-11-08] MEDS ORDERED: ACETAMINOPHEN 1000 MG/100 ML IV IV STA (03:28)
[2020-11-08] MEDS ORDERED: PANTOprazole 40 MG in SYRINGE 0 ML IV ONE (03:28)
--- NOTE | 2020-11-08 03:42 | Emergency Department Note ---
History of Present Illness General Chief complaint: Vomiting Stated complaint: CANNOT STOP VOMITING Time Seen by Provider: 11/07/20 23:33 Source: patient, family and RN notes reviewed Mode of arrival: ambulatory Limitations: altered mental status (Lethargy) History of Present Illness Provider complaint: Recurrent vomiting, lethargy This patient is a 75-year-old female who presents to the emergency department with her son who states she has had difficulty with intractable vomiting. The patient has also been unusually sleepy per her son. He has noted that she is able to wake up in the morning, do dishes intend to her garden but then falls asleep quickly or goes back to bed. He has noted her to be vomiting quite often. He found her in a pool of vomit asleep in her bed. Patient also has been falling asleep while smoking a cigarette out on the back porch. She is currently taking multiple medications including gabapentin, oxycodone, baclofen and duloxetine. Patient falls asleep quickly and is not able to answer questions reliably. Per son she follows with her PCP in the [place] area. The patient is "waiting for date" for back surgery. Home Medications Medication Instructions Recorded Confirmed Type cholecalciferol (vitamin D3) 25 25 mcg PO DAILY 05/03/20 11/08/20 History mcg (1,000 unit) tablet (Vitamin D3) cyanocobalamin (vitamin B-12) 1,000 mcg PO DAILY 05/03/20 11/08/20 History 1,000 mcg tablet (Vitamin B-12) diltiazem HCl 180 mg 180 mg PO DAILY 05/03/20 11/08/20 History capsule,extended release 24 hr duloxetine 30 mg capsule,delayed 30 mg PO DAILY 05/03/20 11/08/20 History release duloxetine 60 mg capsule,delayed 60 mg PO DAILY 05/03/20 11/08/20 History release fenofibrate micronized 134 mg 134 mg PO DAILY 05/03/20 11/08/20 History capsule gabapentin 600 mg tablet 600 mg PO TID 05/03/20 11/08/20 History hydrochlorothiazide 25 mg tablet 25 mg PO DAILY 05/03/20 11/08/20 History nwwkpq-koirzhen-gtpestc 1 cap PO DIRECTED 05/03/20 11/08/20 History 24,000-76,000-120,000 unit capsule,delayed rel (Creon) lisinopril 40 mg tablet 40 mg PO DAILY 05/03/20 11/08/20 History metformin 500 mg tablet 1,000 mg PO BID 05/03/20 11/08/20 History omega-3 fatty acids 1,000 mg PO DAILY 05/03/20 11/08/20 History ondansetron 4 mg disintegrating 4 mg TRANSLINGUAL Q8H PRN 05/03/20 11/08/20 History tablet pramipexole 1 mg tablet 1 mg PO HS 05/03/20 11/08/20 History pravastatin 40 mg tablet 40 mg PO DAILY 05/03/20 11/08/20 History ropinirole 1 mg tablet 1 mg PO HS 05/03/20 11/08/20 History sucralfate 1 gram tablet 1 g PO DIRECTED PRN 05/03/20 11/08/20 History tizanidine 4 mg tablet 4 mg PO Q8H PRN 05/03/20 11/08/20 History tramadol 50 mg tablet 50 mg PO DIRECTED PRN 05/03/20 10/01/20 History famotidine 20 mg tablet 20 mg PO BID #14 tab 05/06/20 10/01/20 Rx fluconazole 200 mg tablet See Rx Instructions PO DAILY #15 06/16/20 10/01/20 Rx tab albuterol sulfate 90 mcg/actuation INHALATION 11/08/20 History aerosol inhaler liraglutide 0.6 mg/0.1 mL (18 mg/3 1.8 mg SUBCUT DAILY 11/08/20 11/08/20 History mL) subcutaneous pen injector (Victoza 3-Shady) oxycodone myristate 9 mg capsule 9 mg PO Q12H 11/08/20 11/08/20 History sprinkle extended release 12 hr(DON'T CRUSH) (Xtampza ER) oxycodone-acetaminophen 5 mg-325 1 tab PO Q6H PRN 11/08/20 11/08/20 History mg tablet pantoprazole 40 mg tablet,delayed 40 mg PO DAILY 11/08/20 11/08/20 History release trazodone 50 mg tablet 50 mg PO HS 11/08/20 11/08/20 History umeclidinium 62.5 mcg-vilanterol 62.5 inh INHALATION DAILY 07/24/21 07/24/21 History 25 mcg/actuation powdr for inhalation (Anoro Ellipta) Allergies Allergy/AdvReac Type Severity Reaction Status Date / Time No Known Drug Allergies Allergy Unknown Verified 10/01/20 10:01 Past Med/Surg History Medical History AAA (abdominal aortic aneurysm) Acute lumbar radiculopathy Chronic low back pain Current smoker Depression Diabetes mellitus type 2 in obese GERD (gastroesophageal reflux disease) HTN (hypertension), benign Hyperlipidemia Obesity Peptic ulcer disease Restless leg syndrome Vitamin B12 deficiency Vitamin D deficiency Surgical History History of bilateral tubal ligation History of carpal tunnel release Left History of lumbar fusion History of repair of rotator cuff Right Family History Father Heart disease Brother Kidney disease Mother Gastric cancer Family/Other Testicular cancer Social History Smoking Status: Current every day smoker Tobacco Type: Cigarettes Age Started Using Tobacco: 11; Years Smoked: 63; Cigarettes Per Day: 20; Hx Alcohol Use: No Hx Substance Use: No Preferred Language: Swiss Communication Ability: Effective Heel Coverer Required: No Beliefs That Will Affect Care: None Current Living Situation: Family Current Living Situation Comment: with son Chet Feels Safe at Home: Yes Assistive Devices: None Review of Systems See HPI for pertinent positives & negatives. and A total of 10 systems reviewed and were otherwise negative Physical Exam Vital Signs Vital Signs - 24 hr 11/08/20 02:43 Pulse Rate [Right Finger] 79 Respiratory Rate 16 Blood Pressure [Right Arm] 171/90 H Blood Pressure Mean [Right Arm] 117 Pulse Oximetry 921 H Oxygen Delivery Method Room Air Vital signs reviewed. General: Chronically ill-appearing 75-year-old female, in no significant distress. HEENT: No scleral icterus, PERRLA, neck supple. Atraumatic. Moist mucous membranes Cardiovascular: Regular rate and rhythm, no extra sounds. Pulmonary: Clear to auscultation bilaterally, normal work of breathing. Abdomen: Soft, obese, nontender, nondistended, positive bowel sounds. Musculoskeletal: Atraumatic, no peripheral edema. Neurologic: Lethargic, arousable to loud verbal and gentle physical stimuli. Answers questions appropriately but falls asleep quickly. Moves all extremities. Skin: Warm, dry, no rash. Nicotine stained fingers on the right Course Administered Medications Acetaminophen (Acetaminophen 325 Mg Tab) 650 mg PO Q4H PRN PRN Reason: pain/fever Stop: 12/08/20 05:31 Last Admin: 11/08/20 12:40 Dose: 650 mg Documented by: [id number] Lipase/Protease/Amylase (Pancreaze (Lipase 10,500u) Cap) 3 cap PO TID [facility]; Protocol Stop: 12/08/20 08:59 Last Admin: 11/08/20 21:05 Dose: 3 cap Documented by: [id number] Admin: 11/08/20 15:15 Dose: 3 cap Documented by: [id number] Admin: 11/08/20 08:43 Dose: 3 cap Documented by: [id number] Diltiazem HCl (Diltiazem Hcl 180 Mg Capcr) 180 mg PO DAILY [facility] Stop: 12/08/20 08:59 Last Admin: 11/08/20 08:40 Dose: 180 mg Documented by: [id number] Duloxetine HCl (Duloxetine Hcl 30 Mg Cap) 30 mg PO DAILY [facility] Stop: 12/08/20 08:59 Last Admin: 11/08/20 08:41 Dose: 30 mg Documented by: [id number] Duloxetine HCl (Duloxetine Hcl 60 Mg Cap) 60 mg PO DAILY [facility] Stop: 12/08/20 08:59 Last Admin: 11/08/20 08:41 Dose: 60 mg Documented by: [id number] Gabapentin (Gabapentin 600 Mg Tab) 600 mg PO TID [facility] Stop: 12/08/20 08:59 Last Admin: 11/08/20 21:06 Dose: 600 mg Documented by: [id number] Admin: 11/08/20 15:15 Dose: 600 mg Documented by: [id number] Admin: 11/08/20 08:42 Dose: 600 mg Documented by: [id number] Hydrochlorothiazide (Hydrochlorothiazide 25 Mg Tab) 25 mg PO DAILY [facility] Stop: 12/08/20 08:59 Last Admin: 11/08/20 08:42 Dose: 25 mg Documented by: [id number] Insulin Aspart (Insulin Aspart 100 Units/Ml 3 Ml Pen) 0 units SC ACHS [facility] Stop: 12/08/20 07:29 Last Admin: 11/08/20 20:49 Dose: Not Given Documented by: [id number] Admin: 11/08/20 18:08 Dose: 4 units Documented by: [id number] Cosigned by: [id number] Admin: 11/08/20 12:36 Dose: 4 units Documented by: [id number] Cosigned by: [id number] Admin: 11/08/20 10:25 Dose: 1 units Documented by: [id number] Cosigned by: [id number] Lisinopril (Lisinopril 40 Mg Tab) 40 mg PO DAILY [facility] Stop: 12/08/20 08:59 Last Admin: 11/08/20 08:43 Dose: 40 mg Documented by: [id number] Miscellaneous (*Victoza*Order Awaiting Action) 1 ea N/A QS [facility] Stop: 12/08/20 07:59 Last Admin: 11/08/20 23:12 Dose: Not Given Documented by: [id number] Admin: 11/08/20 16:12 Dose: Not Given Documented by: [id number] Admin: 11/08/20 08:50 Dose: Not Given Documented by: [id number] Miscellaneous (Remove Nicoderm Patch) 1 ea N/A DAILY@[id number] [facility] Stop: 12/08/20 08:58 Last Admin: 11/08/20 08:50 Dose: Not Given Documented by: [id number] Nicotine (Nicotine 21 Mg/24 Hr Tdsy) 21 mg TD QAM [facility] Stop: 12/08/20 08:59 Last Admin: 11/08/20 08:44 Dose: 21 mg Documented by: [id number] Nystatin (Nystatin Cr 15 Gm Tube) 1 appln EXT BID [facility] Stop: 12/08/20 08:59 Last Admin: 11/08/20 21:04 Dose: 1 appln Documented by: [id number] Admin: 11/08/20 08:45 Dose: 1 appln Documented by: [id number] Oxycodone/Acetaminophen (Oxycodone/Acetaminophen 5mg/325mg Tab) 1 tab PO Q6H PRN PRN Reason: Pain Stop: 11/22/20 05:31 Last Admin: 11/08/20 21:06 Dose: 1 tab Documented by: [id number] Admin: 11/08/20 15:14 Dose: 1 tab Documented by: [id number] Admin: 11/08/20 08:36 Dose: 1 tab Documented by: [id number] Pantoprazole Sodium (Pantoprazole 40 Mg Tab) 40 mg PO DAILY [facility] Stop: 12/08/20 08:59 Last Admin: 11/08/20 08:44 Dose: 40 mg Documented by: [id number] Pramipexole Dihydrochloride (Pramipexole Dihydrochlo 0.5 Mg Tab) 1 mg PO HS [facility] Stop: 12/08/20 20:59 Last Admin: 11/08/20 21:06 Dose: 1 mg Documented by: [id number] Pravastatin Sodium (Pravastatin Sod 40 Mg Tab) 40 mg PO DAILY [facility] Stop: 12/08/20 08:59 Last Admin: 11/08/20 08:44 Dose: 40 mg Documented by: [id number] Ropinirole HCl (Ropinirole Hcl 1 Mg Tablet) 1 mg PO HS [facility] Stop: 12/08/20 20:59 Last Admin: 11/08/20 21:06 Dose: 1 mg Documented by: [id number] Umeclidinium/Vilanterol (Umeclidinium/Vilanterol 62.5/25mcg 7 Puffs/Inhaler) 1 puffs INH DAILY [facility] Stop: 12/08/20 08:59 Last Admin: 11/08/20 08:50 Dose: 1 puffs Documented by: [id number] Discontinued Medications Acetaminophen (Acetaminophen 1000 Mg/100 Ml Iv) 1,000 mg IV NOW STA Stop: 11/08/20 03:29 Last Admin: 11/08/20 03:43 Dose: 1,000 mg Documented by: [id number] Sodium Chloride (Nss 1000ml) 1,000 mls @ 125 mls/hr IV .Q8H [facility] Stop: 12/08/20 00:14 Last Infusion: 11/08/20 06:33 Dose: 0 mls/hr Documented by: [id number] Admin: 11/08/20 01:46 Dose: 125 mls/hr Documented by: [id number] Sodium Chloride (Nss 1000ml) 500 mls @ 999 mls/hr IV .Q31M ONE Stop: 11/08/20 00:42 Last Infusion: 11/08/20 06:34 Dose: 0 mls/hr Documented by: [id number] Admin: 11/08/20 00:22 Dose: 999 mls/hr Documented by: [id number] Pantoprazole Sodium 40 mg/ (Syringe) 10 mls @ 5 mls/min IV NOW ONE Stop: 11/08/20 03:29 Last Admin: 11/08/20 03:43 Dose: 5 mls/min Documented by: [id number] Lactated Ringer's (Lr) 1,000 mls @ 125 mls/hr IV .Q8H [facility] Stop: 11/08/20 14:04 Last Infusion: 11/08/20 15:13 Dose: 0 mls/hr Documented by: [id number] Admin: 11/08/20 06:32 Dose: 125 mls/hr Documented by: [id number] Naloxone HCl (Naloxone Hcl 0.4 Mg/1 Ml Vial/Carp) 0.4 mg IV NOW STA Stop: 11/08/20 01:55 Last Admin: 11/08/20 02:08 Dose: 0.4 mg Documented by: [id number] Medical Decision Making Differential Diagnosis Infection, hypoglycemia, electrolyte abnormalities, overdose, toxicologic, cardiac sources, intracerebral event, neurologic, trauma, as well as other pathologies. Medical Records Attestation: I reviewed the patient's medical records. Home Medications Current Medication List: was personally reviewed by me Laboratory Data Attestation: I reviewed the patient's lab results. Result diagrams: 11/07/20 22:20 11/07/20 22:20 Lab Results 11/07/20 11/07/20 11/07/20 Range/Units 22:20 22:20 22:20 WBC 7.98 (4.8-10.8) K/uL RBC 4.48 (4.2-5.4) M/uL Hgb 13.5 (12.0-16.0) g/dL Hct 40.2 (37-47) % MCV 89.7 (80-100) fL MCH 30.1 (25-34) pg MCHC 33.6 (32-36) g/dL RDW Std Deviation 47.1 H (36.4-46.3) fL RDW Coeff of [place] 14.3 (11.5-14.5) % Plt Count 303 (130-400) K/uL MPV 10.2 (7.4-10.4) fL Immature Gran % (Auto) 0.3 % Neut % (Auto) 65.2 % Lymph % (Auto) 24.8 % [place] % (Auto) 8.1 % Eos % (Auto) 1.5 % Baso % (Auto) 0.1 % Neut # (Auto) 5.20 (1.4-6.5) K/uL Lymph # (Auto) 1.98 (1.2-3.4) K/uL [place] # (Auto) 0.65 H (0.11-0.59) K/uL Eos # (Auto) 0.12 (0-0.5) K/uL Baso # (Auto) 0.01 (0-0.2) K/uL Immature Gran # (Auto) 0.02 (0.00-0.02) K/uL Sodium 141 (136-145) mmol/L Potassium 3.8 (3.5-5.1) mmol/L Chloride 106 (98-107) mmol/L Carbon Dioxide 30 (21-32) mmol/L Anion Gap 5.0 (3-11) BUN 20 H (7-18) mg/dl Creatinine 1.08 (0.6-1.2) mg/dl Est Cr Clr Drug Dosing 44.3 ml/min Est GFR ( Amer) 57.7 ml/min Est GFR (Non-Af Amer) 49.8 ml/min BUN/Creatinine Ratio 18.7 (10-20) Glucose 185 H (70-99) mg/dl Calcium 9.3 (8.5-10.1) mg/dl Magnesium (1.8-2.4) mg/dl Total Bilirubin 0.3 (0.2-1) mg/dl AST 12 L (15-37) U/L ALT 18 (12-78) U/L Alkaline Phosphatase 53 (45-117) U/L Ammonia (11-32) umol/L Total Protein 6.9 (6.4-8.2) gm/dl Albumin 3.1 L (3.4-5.0) gm/dl Globulin 3.8 (2.5-4.0) gm/dl Albumin/Globulin Ratio 0.8 L (0.9-2) Lipase 89 (73-393) U/L Urine Color Dark Yellow Urine Appearance Clear (Clear) Urine pH 5.0 (4.5-7.5) Ur Specific [place] 1.022 (1.000-1.030) Urine Protein 2+ H (Negative) Urine Glucose (UA) Negative (Negative) Urine Ketones Trace H (Negative) Urine Blood Negative (Negative) Urine Nitrite Negative (Negative) Urine Bilirubin Negative (Negative) Urine Urobilinogen Negative (Negative) Ur Leukocyte Esterase 1+ H (Negative) Urine WBC (Auto) 5-10 H (0-5) /hpf Urine RBC (Auto) 0-4 (0-4) /hpf U Hyaline Cast (Auto) 1-5 (0-5) /lpf U Epithel Cells (Auto) >30 H (0-5) /lpf Urine Bacteria (Auto) Negative (Negative) Urine Opiates Screen (Neg) Ur Methadone, Qual (Neg) Urine Barbiturates (Neg) Ur Phencyclidine (PCP) (Neg) U Amphetamin/Meth Scrn (Neg) MDMA (Ecstasy) Screen (Neg) U Benzodiazepines Scrn (Neg) Ur Cocaine Metabolite (Neg) U Marijuana (THC) Screen (Neg) COVID-19 Eval Order SARS-CoV-2 (PCR) (Negative) 11/07/20 11/08/20 11/08/20 Range/Units 22:20 00:19 00:19 WBC (4.8-10.8) K/uL RBC (4.2-5.4) M/uL Hgb (12.0-16.0) g/dL Hct (37-47) % MCV (80-100) fL MCH (25-34) pg MCHC (32-36) g/dL RDW Std Deviation (36.4-46.3) fL RDW Coeff of [place] (11.5-14.5) % Plt Count (130-400) K/uL MPV (7.4-10.4) fL Immature Gran % (Auto) % Neut % (Auto) % Lymph % (Auto) % [place] % (Auto) % Eos % (Auto) % Baso % (Auto) % Neut # (Auto) (1.4-6.5) K/uL Lymph # (Auto) (1.2-3.4) K/uL [place] # (Auto) (0.11-0.59) K/uL Eos # (Auto) (0-0.5) K/uL Baso # (Auto) (0-0.2) K/uL Immature Gran # (Auto) (0.00-0.02) K/uL Sodium (136-145) mmol/L Potassium (3.5-5.1) mmol/L Chloride (98-107) mmol/L Carbon Dioxide (21-32) mmol/L Anion Gap (3-11) BUN (7-18) mg/dl Creatinine (0.6-1.2) mg/dl Est Cr Clr Drug Dosing ml/min Est GFR ( Amer) ml/min Est GFR (Non-Af Amer) ml/min BUN/Creatinine Ratio (10-20) Glucose (70-99) mg/dl Calcium (8.5-10.1) mg/dl Magnesium (1.8-2.4) mg/dl Total Bilirubin (0.2-1) mg/dl AST (15-37) U/L ALT (12-78) U/L Alkaline Phosphatase (45-117) U/L Ammonia (11-32) umol/L Total Protein (6.4-8.2) gm/dl Albumin (3.4-5.0) gm/dl Globulin (2.5-4.0) gm/dl Albumin/Globulin Ratio (0.9-2) Lipase (73-393) U/L Urine Color Urine Appearance (Clear) Urine pH (4.5-7.5) Ur Specific [place] (1.000-1.030) Urine Protein (Negative) Urine Glucose (UA) (Negative) Urine Ketones (Negative) Urine Blood (Negative) Urine Nitrite (Negative) Urine Bilirubin (Negative) Urine Urobilinogen (Negative) Ur Leukocyte Esterase (Negative) Urine WBC (Auto) (0-5) /hpf Urine RBC (Auto) (0-4) /hpf U Hyaline Cast (Auto) (0-5) /lpf U Epithel Cells (Auto) (0-5) /lpf Urine Bacteria (Auto) (Negative) Urine Opiates Screen Pos H (Neg) Ur Methadone, Qual Neg (Neg) Urine Barbiturates Neg (Neg) Ur Phencyclidine (PCP) Neg (Neg) U Amphetamin/Meth Scrn Neg (Neg) MDMA (Ecstasy) Screen Pos H (Neg) U Benzodiazepines Scrn Neg (Neg) Ur Cocaine Metabolite Neg (Neg) U Marijuana (THC) Screen Neg (Neg) COVID-19 Eval Order Covid19 at [facility] SARS-CoV-2 (PCR) NEGATIVE (Negative) 11/08/20 11/08/20 Range/Units 02:28 02:28 WBC (4.8-10.8) K/uL RBC (4.2-5.4) M/uL Hgb (12.0-16.0) g/dL Hct (37-47) % MCV (80-100) fL MCH (25-34) pg MCHC (32-36) g/dL RDW Std Deviation (36.4-46.3) fL RDW Coeff of [place] (11.5-14.5) % Plt Count (130-400) K/uL MPV (7.4-10.4) fL Immature Gran % (Auto) % Neut % (Auto) % Lymph % (Auto) % [place] % (Auto) % Eos % (Auto) % Baso % (Auto) % Neut # (Auto) (1.4-6.5) K/uL Lymph # (Auto) (1.2-3.4) K/uL [place] # (Auto) (0.11-0.59) K/uL Eos # (Auto) (0-0.5) K/uL Baso # (Auto) (0-0.2) K/uL Immature Gran # (Auto) (0.00-0.02) K/uL Sodium (136-145) mmol/L Potassium (3.5-5.1) mmol/L Chloride (98-107) mmol/L Carbon Dioxide (21-32) mmol/L Anion Gap (3-11) BUN (7-18) mg/dl Creatinine (0.6-1.2) mg/dl Est Cr Clr Drug Dosing ml/min Est GFR ( Amer) ml/min Est GFR (Non-Af Amer) ml/min BUN/Creatinine Ratio (10-20) Glucose (70-99) mg/dl Calcium (8.5-10.1) mg/dl Magnesium 1.9 (1.8-2.4) mg/dl Total Bilirubin (0.2-1) mg/dl AST (15-37) U/L ALT (12-78) U/L Alkaline Phosphatase (45-117) U/L Ammonia < 10.0 L (11-32) umol/L Total Protein (6.4-8.2) gm/dl Albumin (3.4-5.0) gm/dl Globulin (2.5-4.0) gm/dl Albumin/Globulin Ratio (0.9-2) Lipase (73-393) U/L Urine Color Urine Appearance (Clear) Urine pH (4.5-7.5) Ur Specific [place] (1.000-1.030) Urine Protein (Negative) Urine Glucose (UA) (Negative) Urine Ketones (Negative) Urine Blood (Negative) Urine Nitrite (Negative) Urine Bilirubin (Negative) Urine Urobilinogen (Negative) Ur Leukocyte Esterase (Negative) Urine WBC (Auto) (0-5) /hpf Urine RBC (Auto) (0-4) /hpf U Hyaline Cast (Auto) (0-5) /lpf U Epithel Cells (Auto) (0-5) /lpf Urine Bacteria (Auto) (Negative) Urine Opiates Screen (Neg) Ur Methadone, Qual (Neg) Urine Barbiturates (Neg) Ur Phencyclidine (PCP) (Neg) U Amphetamin/Meth Scrn (Neg) MDMA (Ecstasy) Screen (Neg) U Benzodiazepines Scrn (Neg) Ur Cocaine Metabolite (Neg) U Marijuana (THC) Screen (Neg) COVID-19 Eval Order SARS-CoV-2 (PCR) (Negative) Imaging Data Radiologist's Impression: CT HEAD: No intracranial hemorrhage or acute cortical infarct. MRI may be considered if clinically indicated. Nonspecific white matter low attenuation, possible small vessel disease. Radiologist: Yolette Larson M.D. Study ready at 02:21 and initial results transmitted at 03:03 ECG Data Attestation: I personally reviewed and interpreted this ECG as follows: Indication: + altered mental status Rate (beats per minute): 73 Rhythm: + normal sinus ECG Intervals/blocks: + Normal QT-c ECG ST segments: + Normal ST segments ECG Findings: no PACs or no PVCs Blood Pressure Blood Pressure Findings: Elevated blood pressure Blood Pressure Disposition: elevated BP felt to be situational MDM Narrative This pt was evaluated and appeared to be in no significant distress. IV access was obtained and laboratory work was drawn. Patient was able to wake up and answer simple questions but fell asleep quickly. Notable cardiac monitoring was placed and patient is noted to be in a sinus rhythm at [address] was performed and is negative for acute process. Patient was hydrated with normal saline solution. Patient was given 0.4 mg of IV Narcan which did not have an immediate effect. After 15 to 20 minutes the patient did wake up was much more alert and was complaining of back pain. Patient states she has been taking baclofen, Xtampza and Percocet. There are multiple items on her medication list which are sedating. This is likely a polypharmacy situation. Patient was given Tylenol for her complaints of pain. Given her limited understanding, chronic pain, access to multiple medications, and vomiting with altered mentation, I feel it is in the patient's best interest to be evaluated by the hospitalist service until medication adjustments can be made. Pt was d/w the hospitalist for further management. Impression & Plan AMS (altered mental status), Polypharmacy, Lethargy, Vomiting Discharge Plan Visit Data Chief Complaint: Vomiting Stated Complaint: CANNOT STOP VOMITING ED Provider: Yulia Cantrell Discharge Problem: AMS (altered mental status), Polypharmacy, Lethargy, Vomiting Patient Disposition: Admitted As Inpatient Discharge Instructions Interventions: ED Discharge Assessment Last Done: 11/08/20 05:09 Discharge Problem: AMS (altered mental status) Qualifiers: Altered mental status type: unspecified Qualified Code(s): R41.82 - Altered mental status, unspecified Vomiting Qualifiers: Vomiting type: unspecified Vomiting Intractability: non-intractable Nausea presence: with nausea Qualified Code(s): R11.2 - Nausea with vomiting, unspecified
--- NOTE | 2020-11-08 04:58 | History & Physical Report ---
Date of Service November 08, 2020 Assessment & Plan (1) AMS (altered mental status): Plan: Patient with reported lethargy, somnolence - falling asleep multiple times during the day. Most likely multi-factorial - strongly suspect medication effects. Patient is on multiple agents that may be contributing to her sedation - particularly concerning with her history of COPD as hypercapnia may be contributing to patient's somnolence as well at times. Presently she is AA&O, answering questions appropriately. -Admit to medical -Will hold Xtampza (oxycodone ER 9mg po q12) -Continue Percocet - will increase to 2 tabs po q 6 hours as needed -Hold Tizanidine -Hold Trazodone -PT/OT evaluation -Fall precautions -Aspiration precautions (2) Vomiting: Plan: Patient endorses vomiting immediately following PO intake. No associated nausea or diarrhea. She did have a history of milton esophagitis for which she took fluconazole. Doesn't feel that this is the same discomfort. ? medication effects vs stricture. ?poor motility secondary to medications -Continue Protonix -Continue Sucralfate -Zofran PRN -Check Barium swallow -Consider GI consultation pending results - patient has had some odynophagia and dysphagia as well (3) Polypharmacy: Plan: As above -Will hold vitamins for now -Will hold Tizanidine -Consider Pain consultation (4) COPD (chronic obstructive pulmonary disease): Plan: Chronic -Patient with diffuse wheezing and poor air flow. No complaint of SOB -Albuterol PRN -Continue Anoro Ellipta -SHELDON is supposed to be on CPAP. Will use here per protocol (5) Current smoker: Plan: Patient smokes 1 ppd. No intent of quitting at this time -Nicotine 21 patch -Smoking cessation counseling (6) Restless leg syndrome: Plan: Chronic -Patient on both Ropinirole and pramipexole. -Continue for now (7) Hyperlipidemia: Plan: Chronic -Pravastatin -Hold Fenofibrate (8) Diabetes mellitus type 2 in obese: Plan: Chronic -Continue Victoza -ISS -Check A1C (9) GERD (gastroesophageal reflux disease): Plan: Chronic -Continue Protonix, Sucralfate (10) HTN (hypertension), benign: Plan: Chronic. BP elevated -Pain control -Continue HCTZ, Diltiazem, Lisinopril History of Present Illness Chief Complaint: vomiting Primary Care Provider: Manny Bland DO Silvia Church is a 75yo female presenting with ongoing vomiting. She report that for the last 3 months she has not been able to stop vomiting. She vomits almost immediately after intake of food or liquid. She denies nausea associated with the vomiting. No diarrhea. She has occasional odynophagia and frequent dysphagia to both solids and liquids. She has vomiting episodes at night as well. Son is at bedside and states that she is tired all the time. She frequently falls asleep while using her Ipad or sitting outside. He states that her gait is unstable at times and she stumbles and falls. He says at times she is too tired to walk. He found her today passed out in her vomit. Uncertain if the vomiting and fatigue has anything to do with timing of her medications. She snores at night. Is supposed to wear a CPAP but states that the mask doesn't fit her so insurance won't pay for it. She does complain of cough productive for clear sputum. Complains of severe intractable back pain. She is on several medications for her back pain. She has been in contact with Ortho and is in the process of scheduling surgery. She denies fever, chills, chest pain, palpitations, abdominal pain, nausea, diarrhea, constipation. Denies dysuria, focal numbness, weakness or tingling ER Course: Tylenol, Narcan, Protonix, NSS Allergies Allergy/AdvReac Type Severity Reaction Status Date / Time No Known Drug Allergies Allergy Unknown Verified 10/01/20 10:01 Home Medications Medication Instructions Recorded Confirmed Type cholecalciferol (vitamin D3) 25 25 mcg PO DAILY 05/03/20 11/08/20 History mcg (1,000 unit) tablet (Vitamin D3) cyanocobalamin (vitamin B-12) 1,000 mcg PO DAILY 05/03/20 11/08/20 History 1,000 mcg tablet (Vitamin B-12) diltiazem HCl 180 mg 180 mg PO DAILY 05/03/20 11/08/20 History capsule,extended release 24 hr duloxetine 30 mg capsule,delayed 30 mg PO DAILY 05/03/20 11/08/20 History release duloxetine 60 mg capsule,delayed 60 mg PO DAILY 05/03/20 11/08/20 History release fenofibrate micronized 134 mg 134 mg PO DAILY 05/03/20 11/08/20 History capsule gabapentin 600 mg tablet 600 mg PO TID 05/03/20 11/08/20 History hydrochlorothiazide 25 mg tablet 25 mg PO DAILY 05/03/20 11/08/20 History tmjpny-jbluytjz-ttjpusp 1 cap PO DIRECTED 05/03/20 11/08/20 History 24,000-76,000-120,000 unit capsule,delayed rel (Creon) lisinopril 40 mg tablet 40 mg PO DAILY 05/03/20 11/08/20 History metformin 500 mg tablet 1,000 mg PO BID 05/03/20 11/08/20 History omega-3 fatty acids 1,000 mg PO DAILY 05/03/20 11/08/20 History ondansetron 4 mg disintegrating 4 mg TRANSLINGUAL Q8H PRN 05/03/20 11/08/20 History tablet pramipexole 1 mg tablet 1 mg PO HS 05/03/20 11/08/20 History pravastatin 40 mg tablet 40 mg PO DAILY 05/03/20 11/08/20 History ropinirole 1 mg tablet 1 mg PO HS 05/03/20 11/08/20 History sucralfate 1 gram tablet 1 g PO DIRECTED PRN 05/03/20 11/08/20 History tizanidine 4 mg tablet 4 mg PO Q8H PRN 05/03/20 11/08/20 History tramadol 50 mg tablet 50 mg PO DIRECTED PRN 05/03/20 10/01/20 History famotidine 20 mg tablet 20 mg PO BID #14 tab 05/06/20 10/01/20 Rx fluconazole 200 mg tablet See Rx Instructions PO DAILY #15 06/16/20 10/01/20 Rx tab albuterol sulfate 90 mcg/actuation INHALATION 11/08/20 History aerosol inhaler liraglutide 0.6 mg/0.1 mL (18 mg/3 1.8 mg SUBCUT DAILY 11/08/20 11/08/20 History mL) subcutaneous pen injector (Victoza 3-Shady) oxycodone myristate 9 mg capsule 9 mg PO Q12H 11/08/20 11/08/20 History sprinkle extended release 12 hr(DON'T CRUSH) (Xtampza ER) oxycodone-acetaminophen 5 mg-325 1 tab PO Q6H PRN 11/08/20 11/08/20 History mg tablet pantoprazole 40 mg tablet,delayed 40 mg PO DAILY 11/08/20 11/08/20 History release trazodone 50 mg tablet 50 mg PO HS 11/08/20 11/08/20 History umeclidinium 62.5 mcg-vilanterol 62.5 inh INHALATION DAILY 11/08/20 11/08/20 History 25 mcg/actuation powdr for inhalation (Anoro Ellipta) Past Med/Surg History Medical History AAA (abdominal aortic aneurysm) Acute lumbar radiculopathy Chronic low back pain Current smoker Depression Diabetes mellitus type 2 in obese GERD (gastroesophageal reflux disease) HTN (hypertension), benign Hyperlipidemia Obesity Peptic ulcer disease Restless leg syndrome Vitamin B12 deficiency Vitamin D deficiency Surgical History History of bilateral tubal ligation History of carpal tunnel release Left History of lumbar fusion History of repair of rotator cuff Right Family History Father Heart disease Brother Kidney disease Mother Gastric cancer Family/Other Testicular cancer Social History Smoking Status: Current every day smoker Tobacco Type: Cigarettes Age Started Using Tobacco: 11; Years Smoked: 63; Cigarettes Per Day: 30; Hx Alcohol Use: No Hx Substance Use: No Preferred Language: Icelandic Communication Ability: Effective 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 Required: No Beliefs That Will Affect Care: None Current Living Situation: Family Current Living Situation Comment: Son and grandson Feels Safe at Home: Yes Assistive Devices: Denture - Upper, Denture - Lower, Glasses and Oxygen - at Night Review of Systems Review of Systems: All systems reviewed & are unremarkable except as noted in HPI & below Physical Exam Physical Exam: General: elderly female patient resting comfortably, NAD, non- toxic in appearance, AA&O x 4 Skin: warm, dry, intact, no rashes or lesions HEENT: NC/AT, PERRL, EOMI, anicteric sclera, conjunctiva without injection, external ear normal to inspection and nontender, nares patent, dry mucus membranes, edentulous, no oropharyngeal lesions/ulcers/thrush, neck supple, trachea midline, no LAD, no thyromegaly, no JVD Heart: +S1/S2, regular, no m/r/g Lungs: coarse breath sounds bilaterally, diminished air flow with diffuse end- expiratory wheezing Abd: +BS, soft, NT/ND, no masses/organomegaly/ascites Ext: warm, 2+ pulses in UE/LE bilaterally, no clubbing/cyanosis or edema Neuro: nonfocal, patient AA&O x 4, speech intact, no facial droop, moving all extremities on command with equal strength 5/5 Results & Data Results & Data ([place]) Vital Signs (Past 12 Hours) Vital Signs Temp Pulse Pulse Resp BP BP Pulse Ox 11/08/20 02:43 79 16 171/90 H 921 H 11/08/20 00:21 76 16 106/69 11/07/20 22:16 36.5 C 118 H 18 133/75 93 Laboratory Results Laboratory Results WBC 7.98 K/uL (4.8-10.8) 11/07/20 22:20 RBC 4.48 M/uL (4.2-5.4) 11/07/20 22:20 Hgb 13.5 g/dL (12.0-16.0) 11/07/20 22:20 Hct 40.2 % (37-47) 11/07/20 22:20 MCV 89.7 fL (80-100) 11/07/20 22:20 MCH 30.1 pg (25-34) 11/07/20 22:20 MCHC 33.6 g/dL (32-36) 11/07/20 22:20 RDW Std Deviation 47.1 fL (36.4-46.3) H 11/07/20 22:20 RDW Coeff of [place] 14.3 % (11.5-14.5) 11/07/20 22:20 Plt Count 303 K/uL (130-400) 11/07/20 22:20 MPV 10.2 fL (7.4-10.4) 11/07/20 22:20 Immature Gran % (Auto) 0.3 % 11/07/20 22:20 Neut % (Auto) 65.2 % 11/07/20 22:20 Lymph % (Auto) 24.8 % 11/07/20 22:20 [place] % (Auto) 8.1 % 11/07/20 22:20 Eos % (Auto) 1.5 % 11/07/20 22:20 Baso % (Auto) 0.1 % 11/07/20 22:20 Neut # (Auto) 5.20 K/uL (1.4-6.5) 11/07/20 22:20 Lymph # (Auto) 1.98 K/uL (1.2-3.4) 11/07/20 22:20 [place] # (Auto) 0.65 K/uL (0.11-0.59) H 11/07/20 22:20 Eos # (Auto) 0.12 K/uL (0-0.5) 11/07/20 22:20 Baso # (Auto) 0.01 K/uL (0-0.2) 11/07/20 22:20 Immature Gran # (Auto) 0.02 K/uL (0.00-0.02) 11/07/20 22:20 Sodium 141 mmol/L (136-145) 11/07/20 22:20 Potassium 3.8 mmol/L (3.5-5.1) 11/07/20 22:20 Chloride 106 mmol/L (98-107) 11/07/20 22:20 Carbon Dioxide 30 mmol/L (21-32) 11/07/20 22:20 Anion Gap 5.0 (3-11) 11/07/20 22:20 BUN 20 mg/dl (7-18) H 11/07/20 22:20 Creatinine 1.08 mg/dl (0.6-1.2) 11/07/20 22:20 Est Cr Clr Drug Dosing 44.3 ml/min 11/07/20 22:20 Est GFR ( Amer) 57.7 ml/min 11/07/20 22:20 Est GFR (Non-Af Amer) 49.8 ml/min 11/07/20 22:20 BUN/Creatinine Ratio 18.7 (10-20) 11/07/20 22:20 Glucose 185 mg/dl (70-99) H 11/07/20 22:20 Calcium 9.3 mg/dl (8.5-10.1) 11/07/20 22:20 Total Bilirubin 0.3 mg/dl (0.2-1) 11/07/20 22:20 AST 12 U/L (15-37) L 11/07/20 22:20 ALT 18 U/L (12-78) 11/07/20 22:20 Alkaline Phosphatase 53 U/L (45-117) 11/07/20 22:20 Ammonia < 10.0 umol/L (11-32) L 11/08/20 02:28 Total Protein 6.9 gm/dl (6.4-8.2) 11/07/20 22:20 Albumin 3.1 gm/dl (3.4-5.0) L 11/07/20 22:20 Globulin 3.8 gm/dl (2.5-4.0) 11/07/20 22:20 Albumin/Globulin Ratio 0.8 (0.9-2) L 11/07/20 22:20 Lipase 89 U/L (73-393) 11/07/20 22:20 Urine Color Dark Yellow 11/07/20 22:20 Urine Appearance Clear (Clear) 11/07/20 22:20 Urine pH 5.0 (4.5-7.5) 11/07/20 22:20 Ur Specific [place] 1.022 (1.000-1.030) 11/07/20 22:20 Urine Protein 2+ (Negative) H 11/07/20 22:20 Urine Glucose (UA) Negative (Negative) 11/07/20 22:20 Urine Ketones Trace (Negative) H 11/07/20 22:20 Urine Blood Negative (Negative) 11/07/20 22:20 Urine Nitrite Negative (Negative) 11/07/20 22:20 Urine Bilirubin Negative (Negative) 11/07/20 22:20 Urine Urobilinogen Negative (Negative) 11/07/20 22:20 Ur Leukocyte Esterase 1+ (Negative) H 11/07/20 22:20 Urine WBC (Auto) 5-10 /hpf (0-5) H 11/07/20 22:20 Urine RBC (Auto) 0-4 /hpf (0-4) 11/07/20 22:20 U Hyaline Cast (Auto) 1-5 /lpf (0-5) 11/07/20 22:20 U Epithel Cells (Auto) >30 /lpf (0-5) H 11/07/20 22:20 Urine Bacteria (Auto) Negative (Negative) 11/07/20 22:20 Urine Opiates Screen Pos (Neg) H 11/07/20 22:20 Ur Methadone, Qual Neg (Neg) 11/07/20 22:20 Urine Barbiturates Neg (Neg) 11/07/20 22:20 Ur Phencyclidine (PCP) Neg (Neg) 11/07/20 22:20 U Amphetamin/Meth Scrn Neg (Neg) 11/07/20 22:20 MDMA (Ecstasy) Screen Pos (Neg) H 11/07/20 22:20 U Benzodiazepines Scrn Neg (Neg) 11/07/20 22:20 Ur Cocaine Metabolite Neg (Neg) 11/07/20 22:20 U Marijuana (THC) Screen Neg (Neg) 11/07/20 22:20 COVID-19 Eval Order Covid19 at [facility] 11/08/20 00:19 SARS-CoV-2 (PCR) NEGATIVE (Negative) 11/08/20 00:19 Code Status & VTE Plan Code Status Patient wishes to be DNR but is okay with intubation and mechanical ventilation if needed PG Care Time/CCT Total # of Minutes Spent Total Time Spent with Patient: Total time spent is greater than 50% in coordination of care (as documented) at patient's floor/unit and/or counseling patient: Coding Level of Care Code INT OBSERVATION CARE 50M LVL 2 Diagnoses AMS (altered mental status) R41.82 Altered mental status type: unspecified Polypharmacy Z79.899 Vomiting R11.2 Nausea presence: with nausea Vomiting Intractability: non-intractable Vomiting type: unspecified COPD (chronic obstructive pulmonary disease) J44.9 Current smoker F17.200 Restless leg syndrome G25.81 Hyperlipidemia E78.5 Diabetes mellitus type 2 in obese E11.69; E66.9 GERD (gastroesophageal reflux disease) K21.9 HTN (hypertension), benign I10 (1) AMS (altered mental status) Altered mental status type: unspecified Qualified Code(s): R41.82 - Altered mental status, unspecified (2) Vomiting Nausea presence: with nausea Vomiting Intractability: non-intractable Vomiting type: unspecified Qualified Code(s): R11.2 - Nausea with vomiting, unspecified
[2020-11-08] MEDS ORDERED: GLUCOSE 40% GEL 15 GM TUBE PO PRN (05:32)
[2020-11-08] MEDS ORDERED: ACETAMINOPHEN 325 MG TAB PO PRN (05:32)
[2020-11-08] MEDS ORDERED: GLUCOSE 10 TABS/TUBE PO PRN (05:32)
[2020-11-08] MEDS ORDERED: ALBUTEROL 0.5% NEB SOLN 2.5 MG/0.5 ML VIAL NEB PRN ×2 (05:32)
[2020-11-08] MEDS ORDERED: GLUCAGON FOR INJ 1 MG VIAL SQ PRN (05:32)
[2020-11-08] MEDS ORDERED: ONDANSETRON INJ 2 MG/ML 2 ML VIAL IV PRN (05:32)
[2020-11-08] MEDS ORDERED: DEXTROSE 50% 50 ML SYRINGE IV PRN (05:32)
[2020-11-08] MEDS ORDERED: CARBOHYDRATES FOR HYPOGLYCEMIA PO PRN (05:32)
[2020-11-08] MEDS ORDERED: SUCRALFATE 1 GM TAB PO PRN (05:32)
[2020-11-08] MEDS ORDERED: LACTATED RINGER'S 1,000 ML IV SCH (06:05)
[2020-11-08] MEDS ORDERED: PANCREAZE (LIPASE 10,500U) CAP PO PRN (06:11)
--- NOTE | 2020-11-08 07:48 | CT Scan Report ---
CT OF THE HEAD WITHOUT CONTRAST CLINICAL HISTORY: Altered mental status. COMPARISON STUDY: No previous studies for comparison. CT DOSE: 537.48 mGy.cm TECHNIQUE: Helical axial images of the head were obtained without IV contrast. Automated exposure con trol was utilized for the study. A dose lowering technique was utilized adhering to the principles o f ALARA. FINDINGS: No acute intracranial hemorrhage, midline shift or mass effect is present. Extensive white matter hypodensity is present. The ventricular system is unremarkable. The basal cisterns are patent. No extra-axial collections are present. There are no findings to suggest acute dural sinus thrombosi s or acute territorial infarct. No significant calvarial abnormalities are present. Visualized portio ns of the sinuses and mastoid air cells are clear. IMPRESSION: 1. No acute intracranial findings. 2. Extensive white matter hypodensity which is nonspecific but likely reflect small vessel disease. ACT 112: Negative or not required by law. Electronically signed by: Chriss Naranjo M.D. 11/08/2020 7:47 AM
[2020-11-08] MEDS: oxyCODONE/ACETAMINOPHEN 5mg/325mg TAB PO PRN ×3 (08:36→21:06)
[2020-11-08] MEDS: dilTIAZem HCL 180 MG CAPCR PO SCH (08:40)
[2020-11-08] MEDS: DULoxetine HCL 30 MG CAP PO SCH (08:41)
[2020-11-08] MEDS: DULoxetine HCL 60 MG CAP PO SCH (08:41)
[2020-11-08] MEDS: hydroCHLOROthiazide 25 MG TAB PO SCH (08:42)
[2020-11-08] MEDS: GABAPENTIN 600 MG TAB PO SCH ×3 (08:42→21:06)
[2020-11-08] MEDS: lisinopril 40 MG TAB PO SCH (08:43)
[2020-11-08] MEDS: PANCREAZE (LIPASE 10,500U) CAP PO SCH ×3 (08:43→21:05)
[2020-11-08] MEDS: NICOTINE 21 MG/24 HR TDSY TD SCH (08:44)
[2020-11-08] MEDS: PRAVASTATIN SOD 40 MG TAB PO SCH (08:44)
[2020-11-08] MEDS: PANTOprazole 40 MG TAB PO SCH (08:44)
[2020-11-08] MEDS: NYSTATIN CR 15 GM TUBE EXT SCH ×2 (08:45→21:04)
[2020-11-08] MEDS: UMECLIDINIUM/VILANTEROL 62.5/25MCG 7 PUFFS/INHALER INH SCH (08:50)
[2020-11-08] MEDS ORDERED: UMECLIDINIUM/VILANTEROL 62.5/25MCG 7 PUFFS/INHALER INH SCH (09:00)
--- NOTE | 2020-11-08 09:46 | Electrocardiogram Report ---
Test Reason : Blood Pressure : / mmHG Vent. Rate : 073 BPM Atrial Rate : 073 BPM P-R Int : 180 ms QRS Dur : 092 ms QT Int : 412 ms P-R-T Axes : 006 -25 056 degrees QTc Int : 453 ms Normal sinus rhythm Normal ECG When compared with ECG of 03-MAY-2020 10:36, QT has lengthened Confirmed by Chente Schuster ([id number]) on 11/08/2020 9:45:49 AM Referred By: REFERRED SELF Confirmed By:Chente Schuster
--- NOTE | 2020-11-08 10:08 | XRay Report ---
XR chest 2V PA/lateral CLINICAL HISTORY: lethargy; rule out PNA with ?aspiration COMPARISON STUDY: No previous studies for comparison. FINDINGS: Spine fusion hardware is partially imaged. There are calcified granulomas within the right lung. There is no pneumothorax or pleural effusion. Note is made of moderate cardiomegaly without robi dence of pulmonary edema. Mild left basilar opacity favors atelectasis. There is no consolidation to suggest pneumonia. IMPRESSION: 1. Mild left basilar opacity which favors atelectasis. 2. Cardiomegaly without evidence for pulmonary edema. ACT 112: Negative or not required by law. Electronically signed by: Chriss Naranjo M.D. 11/08/2020 10:07 AM
[2020-11-08] MEDS: INSULIN ASPART 100 UNITS/ML 3 ML PEN SC SCH ×4 (10:25→20:49)
--- NOTE | 2020-11-08 16:13 | Communication Note ---
Date of Service: November 08, 2020 Patient is alert and oriented during my examination. Added CXR to infectious work up to rule out PNA, was negative for acute findings. She does c/o ongoing vomiting at home - reports she cannot tolerate any PO intake. S/p EGD in , was diagnosed with esophageal candidiasis. She states a repeat EGD has not been scheduled yet. Will hold GI referral but recommend outpatient follow up. Barium swallow will not be completed until Tuesday (if patient remains hospitalized). Advanced to carb consistent diet at lunch time. Consider discharge to home tomorrow with close GI follow up if she remains stable over the next 24 hours.
[2020-11-08] MEDS: rOPINIRole HCL 1 MG TABLET PO SCH (21:06)
[2020-11-08] MEDS: PRAMIPEXOLE DIHYDROCHLO 0.5 MG TAB PO SCH (21:06)
[2020-11-09] MEDS: oxyCODONE/ACETAMINOPHEN 5mg/325mg TAB PO PRN ×2 (04:37→11:54)
[2020-11-09 06:14] LABS: Basophils # (auto) 0.01 K/uL (0-0.2); Basophils % (auto) 0.1 %; Eosinophils # (auto) 0.22 K/uL (0-0.5); Eosinophils % (auto) 3.1 %; Hemoglobin 13.1 g/dL (12.0-16.0); Immature Granulocytes # (auto) 0.02 K/uL (0.00-0.02); Immature Granulocytes % (auto) 0.3 %; Lymphocytes # (auto) 1.36 K/uL (1.2-3.4); Lymphocytes % (auto) 19.1 %; Mean Corpuscular Hemoglobin 28.9 pg (25-34); Mean Corpuscular Hgb Conc 32.8 g/dL (32-36); Mean Corpuscular Volume 88.3 fL (80-100); Mean Platelet Volume 9.6 fL (7.4-10.4); Monocytes # (auto) 0.79 K/uL (0.11-0.59); Monocytes % (auto) 11.1 %; Neutrophils # (auto) 4.73 K/uL (1.4-6.5); Neutrophils % (auto) 66.3 %; Platelet Count 274 K/uL (130-400); RDW Standard Deviation 45.5 fL (36.4-46.3); Red Blood Count 4.53 M/uL (4.2-5.4); White Blood Count 7.13 K/uL (4.8-10.8)
[2020-11-09 06:35] LABS: BUN Creatinine Ratio 15.8 (10-20); Calcium 9.1 mg/dl (8.5-10.1); Creatinine Clr Calc Pharmacy 59.3 ml/min; Est GFR (African American) 81.8 ml/min; Est GFR (Non-African American) 70.5 ml/min; Potassium 3.5 mmol/L (3.5-5.1)
[2020-11-09] MEDS: INSULIN ASPART 100 UNITS/ML 3 ML PEN SC SCH ×4 (09:13→20:59)
[2020-11-09] MEDS: dilTIAZem HCL 180 MG CAPCR PO SCH (09:16)
[2020-11-09] MEDS: PRAVASTATIN SOD 40 MG TAB PO SCH (09:17)
[2020-11-09] MEDS: DULoxetine HCL 60 MG CAP PO SCH (09:18)
[2020-11-09] MEDS: hydroCHLOROthiazide 25 MG TAB PO SCH (09:18)
[2020-11-09] MEDS: PANTOprazole 40 MG TAB PO SCH (09:18)
[2020-11-09] MEDS: lisinopril 40 MG TAB PO SCH (09:18)
[2020-11-09] MEDS: DULoxetine HCL 30 MG CAP PO SCH (09:19)
[2020-11-09] MEDS: GABAPENTIN 600 MG TAB PO SCH ×3 (09:19→20:53)
[2020-11-09] MEDS: PANCREAZE (LIPASE 10,500U) CAP PO SCH ×3 (09:20→20:53)
[2020-11-09] MEDS: NYSTATIN CR 15 GM TUBE EXT SCH ×2 (09:20→20:53)
[2020-11-09] MEDS: UMECLIDINIUM/VILANTEROL 62.5/25MCG 7 PUFFS/INHALER INH SCH (09:21)
[2020-11-09] MEDS: NICOTINE 21 MG/24 HR TDSY TD SCH (09:22)
[2020-11-09] MEDS: PRAMIPEXOLE DIHYDROCHLO 0.5 MG TAB PO SCH (20:53)
[2020-11-09] MEDS: rOPINIRole HCL 1 MG TABLET PO SCH (20:53)
--- NOTE | 2020-11-09 23:32 | Hospitalist Progress Note ---
Date of Service November 09, 2020 Assessment & Plan (1) AMS (altered mental status): Plan: Suspected toxic encephalopathy from polypharmacy including narcotics (Xtampza 9mg po q12), trazodone, and tizanidine All meds on hold She is markedly improved from presentation cont to monitor (2) Vomiting: Plan: Patient reports vomiting immediately following PO intake. Severe KIERSTEN/regurgitation?? esophageal dysmotility? other? denies dysphagia or odynophagia - doubt residual candidiasis agree w/ barium swallow in am. fortunately she is tolerating regular food at this time. cont PPI cont sucralfate of note - despite the vomiting patient has not lost weight since her admission in Apr 2020 (3) Polypharmacy: Plan: multiple meds held and her mental status has improved (see #1 above) (4) COPD (chronic obstructive pulmonary disease): Plan: Cont Albuterol PRN Cont Anoro Ellipta (5) Current smoker: Plan: Nicoderm (6) Restless leg syndrome: Plan: Chronic Patient on both Ropinirole and pramipexole. (7) Hyperlipidemia: Plan: cont statin (8) Diabetes mellitus type 2 in obese: Plan: a1c pending novolog sliding scale (9) GERD (gastroesophageal reflux disease): Plan: Continue Protonix, Sucralfate see #2 above (10) HTN (hypertension), benign: Plan: labile continue HCTZ, Diltiazem, Lisinopril if still high by the am consider titration of diltiazem (11) Chronic low back pain: Plan: this is the reason she takes chronic narcotics no issues today despite holding her extended release oxycodone she states her back feels pretty good today Admission and Anticipated Discharge Date Admission Date: November 08, 2020 Subjective pt reports tolerating regular food w/o nausea, vomiting, dysphagia or odynophagia her ambulatory dysfunction/walking is improved, and she is no longer tired / falling asleep she feels good - "like I could go home today" she states that her "vomiting" is typically filled with mucous the "vomiting" happens immediately after meals denies hoarse voice Review of Systems Review of Systems: general - no weight loss, good appetite today cardio - no chest pain pulm - no dyspnea GI - no abd pain musculo - endorses back pain but it actually feels better than normal today Physical Exam Physical Exam: general - NAD, a/o x 3 mouth - no thrush plaques seen neck - no JVD heart - RRR, s1, s2, no murmur lungs - mild end-exp wheezes abd - soft NT ND BS+ ext - no edema, pulses 2+ b/l Results & Data Results & Data ([facility]) Vital Signs (Past 12 Hours) Vital Signs Temp Pulse Resp BP Pulse Ox 11/09/20 15:10 36.5 C 84 16 151/83 H 99 Laboratory Results Laboratory Results - last 24 hr 11/09/20 11/09/20 11/09/20 05:58 05:58 05:58 WBC 7.13 RBC 4.53 Hgb 13.1 Hct 40.0 MCV 88.3 MCH 28.9 MCHC 32.8 RDW Std Deviation 45.5 RDW Coeff of [place] 14.0 Plt Count 274 MPV 9.6 Immature Gran % (Auto) 0.3 Neut % (Auto) 66.3 Lymph % (Auto) 19.1 [place] % (Auto) 11.1 Eos % (Auto) 3.1 Baso % (Auto) 0.1 Neut # (Auto) 4.73 Lymph # (Auto) 1.36 [place] # (Auto) 0.79 H Eos # (Auto) 0.22 Baso # (Auto) 0.01 Immature Gran # (Auto) 0.02 Sodium 137 Potassium 3.5 Chloride 102 Carbon Dioxide 31 Anion Gap 5.0 BUN 13 Creatinine 0.81 Est Cr Clr Drug Dosing 59.3 Est GFR ( Amer) 81.8 Est GFR (Non-Af Amer) 70.5 BUN/Creatinine Ratio 15.8 Glucose 158 H POC Glucose Estimat Average Glucose Pending Hemoglobin A1c Pending Calcium 9.1 11/09/20 11/09/20 07:53 12:03 WBC RBC Hgb Hct MCV MCH MCHC RDW Std Deviation RDW Coeff of [place] Plt Count MPV Immature Gran % (Auto) Neut % (Auto) Lymph % (Auto) [place] % (Auto) Eos % (Auto) Baso % (Auto) Neut # (Auto) Lymph # (Auto) [place] # (Auto) Eos # (Auto) Baso # (Auto) Immature Gran # (Auto) Sodium Potassium Chloride Carbon Dioxide Anion Gap BUN Creatinine Est Cr Clr Drug Dosing Est GFR ( Amer) Est GFR (Non-Af Amer) BUN/Creatinine Ratio Glucose POC Glucose 153 H 139 H Estimat Average Glucose Hemoglobin A1c Calcium PG Care Time/CCT Total # of Minutes Spent Total Time Spent with Patient: Total time spent is greater than 50% in coordination of care (as documented) at patient's floor/unit and/or counseling patient: Coding Level of Care Code 01155 Subseq Obs Care Lvl 2 Diagnoses AMS (altered mental status) R41.82 Altered mental status type: unspecified Vomiting R11.2 Nausea presence: with nausea Vomiting Intractability: non-intractable Vomiting type: unspecified Polypharmacy Z79.899 COPD (chronic obstructive pulmonary disease) J44.9 Current smoker F17.200 Restless leg syndrome G25.81 Hyperlipidemia E78.5 Diabetes mellitus type 2 in obese E11.69; E66.9 GERD (gastroesophageal reflux disease) K21.9 HTN (hypertension), benign I10 Chronic low back pain M54.5; G89.29 (1) AMS (altered mental status) Altered mental status type: unspecified Qualified Code(s): R41.82 - Altered mental status, unspecified (2) Vomiting Nausea presence: with nausea Vomiting Intractability: non-intractable Vomiting type: unspecified Qualified Code(s): R11.2 - Nausea with vomiting, unspecified
[2020-11-10] MEDS: oxyCODONE/ACETAMINOPHEN 5mg/325mg TAB PO PRN ×2 (03:46→10:00)
[2020-11-10 07:50] LABS: Estimated Average Glucose 200 mg/dl; Hemoglobin A1C 8.6 % (4.5-5.6)
[2020-11-10] MEDS: dilTIAZem HCL 180 MG CAPCR PO SCH (08:03)
[2020-11-10] MEDS: DULoxetine HCL 60 MG CAP PO SCH (08:03)
[2020-11-10] MEDS: DULoxetine HCL 30 MG CAP PO SCH (08:03)
[2020-11-10] MEDS: GABAPENTIN 600 MG TAB PO SCH (08:03)
[2020-11-10] MEDS: hydroCHLOROthiazide 25 MG TAB PO SCH (08:04)
[2020-11-10] MEDS: NICOTINE 21 MG/24 HR TDSY TD SCH (08:04)
[2020-11-10] MEDS: PANCREAZE (LIPASE 10,500U) CAP PO SCH (08:04)
[2020-11-10] MEDS: lisinopril 40 MG TAB PO SCH (08:04)
[2020-11-10] MEDS: UMECLIDINIUM/VILANTEROL 62.5/25MCG 7 PUFFS/INHALER INH SCH (08:05)
[2020-11-10] MEDS: PRAVASTATIN SOD 40 MG TAB PO SCH (08:05)
[2020-11-10] MEDS: PANTOprazole 40 MG TAB PO SCH (08:05)
[2020-11-10] MEDS: INSULIN ASPART 100 UNITS/ML 3 ML PEN SC SCH (08:58)
--- NOTE | 2020-11-10 10:28 | Discharge Summary ---
Date of Service November 10, 2020 Admission HPI Per Admitting Provider Silvia Church is a 75yo female presenting with ongoing vomiting. She report that for the last 3 months she has not been able to stop vomiting. She vomits almost immediately after intake of food or liquid. She denies nausea associated with the vomiting. No diarrhea. She has occasional odynophagia and frequent dysphagia to both solids and liquids. She has vomiting episodes at night as well. Son is at bedside and states that she is tired all the time. She frequently falls asleep while using her Ipad or sitting outside. He states that her gait is unstable at times and she stumbles and falls. He says at times she is too tired to walk. He found her today passed out in her vomit. Uncertain if the vomiting and fatigue has anything to do with timing of her medications. She snores at night. Is supposed to wear a CPAP but states that the mask doesn't fit her so insurance won't pay for it. She does complain of cough productive for clear sputum. Complains of severe intractable back pain. She is on several medications for her back pain. She has been in contact with Ortho and is in the process of scheduling surgery. She denies fever, chills, chest pain, palpitations, abdominal pain, nausea, di arrhea, constipation. Denies dysuria, focal numbness, weakness or tingling ER Course: Tylenol, Narcan, Protonix, NSS Principal Diagnosis Altered mental status Discharge Exam general - NAD, a/o x 3 mouth - no thrush plaques seen neck - no JVD heart - RRR, s1, s2, no murmur lungs - mild end-exp wheezes abd - soft NT ND BS+ ext - no edema, pulses 2+ b/l Discharge Data Allergies Allergy/AdvReac Type Severity Reaction Status Date / Time No Known Drug Allergies Allergy Unknown Verified 10/01/20 10:01 Ordered Studies 11/08/20 01:54 CT head/brain wo con Urgent Hospital Course (1) AMS (altered mental status): Suspected toxic encephalopathy from polypharmacy including narcotics (Xtampza 9mg po q12), trazodone, and tizanidine All meds on hold She is markedly improved from presentation will recommend holding medications listed above. Will recommend close followup with PCP. (2) Vomiting: Patient reports vomiting immediately following PO intake. Severe KIERSTEN/regurgitation?? esophageal dysmotility? other? denies dysphagia or odynophagia - doubt residual candidiasis fortunately she is tolerating regular food at this time. cont PPI cont sucralfate of note - despite the vomiting patient has not lost weight since her admission in Apr 2020. On day of discharge, patient had planned to have a barium swallow, however she had breakfast and test would be delayed to the following day. Patient asked to be discarged with test to be done as an outpatient. Will defer testing to PCP as patient is now tolerating foods. (3) Polypharmacy: multiple meds held and her mental status has improved (see #1 above) (4) COPD (chronic obstructive pulmonary disease): Cont Albuterol PRN Cont Anoro Ellipta (5) Current smoker: Nicoderm (6) Restless leg syndrome: Chronic Patient on both Ropinirole and pramipexole. (7) Hyperlipidemia: cont statin (8) Diabetes mellitus type 2 in obese: a1c pending novolog sliding scale (9) GERD (gastroesophageal reflux disease): Continue Protonix, Sucralfate see #2 above (10) HTN (hypertension), benign: labile continue HCTZ, Diltiazem, Lisinopril if still high by the am consider titration of diltiazem (11) Chronic low back pain: this is the reason she takes chronic narcotics no issues today despite holding her extended release oxycodone she states her back feels pretty good today Total Time Total Time Spent Total Time Spent (In Minutes): 32 Discharge Plan Discharge Items Patient Disposition: Home - Self-Care Reason For Visit: VOMITING Discharge Diagnosis: vomiting Activity: Resume your previous activity Non-emergency contact: Primary Care Provider Call non-emergency contact if: you have any medication questions Follow-up/Referrals: Manny Bland, [Primary Care Provider] - (Dr. Nails office will call patient to schedule an appt.) Diet: Carb Consistent or DM2 Addtl Attending Provider Instructions: Recommend followup with PCP within 1 week. Need to get outpatient barium swallow eval, will defer to PCP. May benefit from followup with GI: 1-2 weeks Will recommend holding medications below as this may have led to your confusion. Please hold oxycodone, trazodone and tizanidine. Pending Studies at Discharge: No Stand-Alone Forms: My [facility], Smoking Cessation Medications and DC Order Prescriptions: New acetaminophen 325 mg Tablet 650 mg PO Q4H PRN (Reason: fever or pain) Qty: 30 RF: 0 nicotine [Nicoderm CQ] 21 mg/24 hr Patch 24 Hour 21 mg transdermal QAM Qty: 28 RF: 0 Continued pramipexole 1 mg tablet 1 mg PO HS RF: 0 metformin 500 mg tablet 1,000 mg PO BID RF: 0 gabapentin 600 mg tablet 600 mg PO TID RF: 0 ropinirole 1 mg tablet 1 mg PO HS RF: 0 pravastatin 40 mg tablet 40 mg PO DAILY RF: 0 diltiazem HCl 180 mg capsule,extended release 24hr 180 mg PO DAILY RF: 0 sucralfate 1 gram tablet 1 g PO DIRECTED PRN (Reason: Indigestion) RF: 0 cyanocobalamin (vitamin B-12) [Vitamin B-12] 1,000 mcg Tablet 1,000 mcg PO DAILY RF: 0 tramadol 50 mg tablet 50 mg PO DIRECTED PRN (Reason: Pain) RF: 0 fenofibrate micronized 134 mg capsule 134 mg PO DAILY RF: 0 hydrochlorothiazide 25 mg tablet 25 mg PO DAILY RF: 0 lisinopril 40 mg tablet 40 mg PO DAILY RF: 0 ondansetron 4 mg tablet,disintegrating 4 mg translingual Q8H PRN (Reason: Nausea) RF: 0 omega-3 fatty acids Capsule 1,000 mg PO DAILY RF: 0 duloxetine 30 mg capsule,delayed release(DR/EC) 30 mg PO DAILY RF: 0 duloxetine 60 mg capsule,delayed release(DR/EC) 60 mg PO DAILY RF: 0 cholecalciferol (vitamin D3) [Vitamin D3] 25 mcg (1,000 unit) Tablet 25 mcg PO DAILY RF: 0 Creon 24,000-76,000 -120,000 unit capsule,delayed release(DR/EC) 1 cap PO DIRECTED RF: 0 famotidine 20 mg tablet 20 mg PO BID Qty: 14 RF: 0 oxycodone-acetaminophen 5-325 mg tablet 1 tab PO Q6H PRN (Reason: Pain) RF: 0 albuterol sulfate 90 mcg/actuation HFA aerosol inhaler INHALATION RF: 0 Victoza 3-Shady 0.6 mg/0.1 mL (18 mg/3 mL) pen injector 1.8 mg SUBCUT DAILY RF: 0 Anoro Ellipta 62.5-25 mcg/actuation blister with device 62.5 inh INHALATION DAILY RF: 0 pantoprazole 40 mg tablet,delayed release (DR/EC) 40 mg PO DAILY RF: 0 Discontinued fluconazole 200 mg tablet See Rx Instructions PO DAILY Qty: 15 RF: 0 tizanidine 4 mg tablet 4 mg PO Q8H PRN (Reason: Muscle Spasm) RF: 0 trazodone 50 mg tablet 50 mg PO HS RF: 0 Xtampza ER 9 mg cap,sprinkl,ER12hr(DONT CRUSH) 9 mg PO Q12H RF: 0 Discharge Orders: Discharge Order (Routine); Ordered 11/10/20 Ordered By: Chris Joseph Admission Data Admit Date/Time: 11/08/20 04:11 Attending Provider: Chris Joseph Admit Provider: Jaymie Marte Primary Care Provider: Manny Bland Other Interventions: Discharge Summary Assessment (RN) Last Done: 11/10/20 10:21 Coding Level of Care Code D/C DAY MANAGEMENT >30 MINS Diagnoses AMS (altered mental status) R41.82 Altered mental status type: unspecified Vomiting R11.2 Nausea presence: with nausea Vomiting Intractability: non-intractable Vomiting type: unspecified Polypharmacy Z79.899 COPD (chronic obstructive pulmonary disease) J44.9 Current smoker F17.200 Restless leg syndrome G25.81 Hyperlipidemia E78.5 Diabetes mellitus type 2 in obese E11.69; E66.9 GERD (gastroesophageal reflux disease) K21.9 HTN (hypertension), benign I10 Chronic low back pain M54.5; G89.29
[2020-11-10] MEDS: NYSTATIN CR 15 GM TUBE EXT SCH (10:29)
[2020-11-13 10:11] LABS: Codeine Urine NEGATIVE ng/mL (<50); Hydrocodone Urine NEGATIVE ng/mL (<50); Hydromor Urine NEGATIVE ng/mL (<50); MDA negative; MDEA negative; MDMA (Ecstasy) Urine, Confirm negative; Morphine Urine NEGATIVE ng/mL (<50); Norhydrocodone Conf Ur NEGATIVE ng/mL (<50); Noroxycodone Urine 5790 ng/mL (<50); Oxycodone Urine 1890 ng/mL (<50); Oxymorph Urine 1100 ng/mL (<50)
== END 2020-11-10 12:08 | disposition home or self-care (01) ==
LOC: ED 22:13 → 3W 22:13 → SUATTDRO 11-08 04:11 → 3W 11-08 05:09

== ENCOUNTER 2020-11-16 12:33 | Inpatient (IN) ==
[2020-11-16] MEDS ORDERED: SODIUM CHLORIDE 0.9% 1000ML 1,000 ML IV SCH (13:00)
[2020-11-16] MEDS ORDERED: ACETAMINOPHEN 1,000 MG/100 ML VIAL IV STA (13:01)
[2020-11-16] MEDS ORDERED: OPTIRAY 320 125ml IV ONE (13:05)
[2020-11-16 13:32] LABS: iSTAT Creatinine 0.8 mg/dl (0.6-1.3); iSTAT Hemoglobin 15.3 g/dl (12.0-16.0); iSTAT Ionized Calcium 1.14 mmol/l (1.12-1.32); iSTAT Potassium 4.5 mmol/L (3.3-5.0)
[2020-11-16 13:40] LABS: Basophils # (auto) 0.01 K/uL (0-0.2); Basophils % (auto) 0.1 %; Eosinophils # (auto) 0.02 K/uL (0-0.5); Eosinophils % (auto) 0.1 %; Hematocrit (blood only) 44.4 % (37-47); Hemoglobin 14.5 g/dL (12.0-16.0); Immature Granulocytes # (auto) 0.03 K/uL (0.00-0.02); Immature Granulocytes % (auto) 0.2 %; Lymphocytes # (auto) 0.55 K/uL (1.2-3.4); Lymphocytes % (auto) 3.5 %; Mean Corpuscular Hemoglobin 29.7 pg (25-34); Mean Corpuscular Hgb Conc 32.7 g/dL (32-36); Mean Corpuscular Volume 90.8 fL (80-100); Monocytes # (auto) 0.71 K/uL (0.11-0.59); Monocytes % (auto) 4.5 %; Neutrophils # (auto) 14.52 K/uL (1.4-6.5); Neutrophils % (auto) 91.6 %; Platelet Count 338 K/uL (130-400); RDW Coefficient of Variation 14.5 % (11.5-14.5); RDW Standard Deviation 48.1 fL (36.4-46.3); Red Blood Count 4.89 M/uL (4.2-5.4); White Blood Count 15.84 K/uL (4.8-10.8)
--- NOTE | 2020-11-16 13:49 | CT Scan Report ---
CT head/brain wo con CLINICAL HISTORY: 75 years-old Female with ams. Acutely altered mental status TECHNIQUE: Multiple axial CT images of the head were obtained without contrast. A dose lowering tech nique was utilized adhering to the principles of ALARA. CT DOSE: 582.94 mGycm COMPARISON: Head CT 11/08/2020 FINDINGS: No acute intracranial hemorrhage, midline shift, intracranial mass, hydrocephalus, territorial ischem ia or abnormal extra-axial collection. Extensive white matter hypodensities redemonstrated suggestive of chronic microvascular ischemic disease. The calvarium is intact. Mastoid air cells are clear. Polypoid mucosal thickening of the left maxill fabricio sinus is partially imaged. Unremarkable soft tissues. Prior bilateral lens repair. IMPRESSION: No acute intracranial abnormality. ACT 112: Negative or not required by law. The above report was generated using voice recognition software. It may contain grammatical, syntax o r spelling errors. Electronically signed by: Stef Pineda M.D. 11/16/2020 1:48 PM
[2020-11-16 13:54] LABS: Partial Thromboplastin Ratio 0.8; Partial Thromboplastin Time 21.2 Seconds (21.0-31.0); Prothrombin Time 10.2 Seconds (9.0-12.0)
[2020-11-16 13:56] LABS: Base Excess VBG 3.2 mEq/L; Oxygen Saturation VBG 86.3 %; pH VBG 7.38 (7.36-7.41)
[2020-11-16 14:06] LABS: Alanine Aminotransferase 19 U/L (12-78); Albumin Globulin Ratio 0.9 (0.9-2); Albumin Level 3.4 gm/dl (3.4-5.0); Alkaline Phosphatase 53 U/L (45-117); Aspartate Aminotransferase 18 U/L (15-37); BUN Creatinine Ratio 20.9 (10-20); Bilirubin,Total 0.5 mg/dl (0.2-1); Blood Urea Nitrogen 20 mg/dl (7-18); Calcium 9.3 mg/dl (8.5-10.1); Carbon Dioxide 30 mmol/L (21-32); Chloride 103 mmol/L (98-107); Est GFR (African American) 66.6 ml/min; Est GFR (Non-African American) 57.4 ml/min; Globulin 3.9 gm/dl (2.5-4.0); Glucose 124 mg/dl (70-99); Magnesium 1.7 mg/dl (1.8-2.4); Potassium 4.4 mmol/L (3.5-5.1); Sodium 138 mmol/L (136-145); Total Protein 7.3 gm/dl (6.4-8.2)
[2020-11-16 14:07] LABS: Acetaminophen < 2 ug/ml (10-30); Salicylate < 1.7 mg/dl (2.8-20)
--- NOTE | 2020-11-16 14:10 | CT Scan Report ---
CT angio chest PE protocol, CT abd pelvis IV con only CT DOSE: 1506.53 mGycm HISTORY: 75 years-old Female with hypoxia ams. Acute hypoxia with altered mental status and acute g eneralized abdominal pain with nausea. TECHNIQUE: Multiple CTA images of the chest were obtained after the intravenous administration of 118 ml Optiray. Coronal and sagittal MIPS were obtained from the axial data set and were submitted for review. All measurements were obtained according to NASCET criteria. CT abdomen pelvis with IV contr ast only also obtained. A dose lowering technique was utilized adhering to the principles of ALARA. COMPARISON: CT abdomen pelvis an MRI lumbar spine 05/03/2020. FINDINGS: CTA: Moderate cardiomegaly. There is no pericardial effusion. Moderate atherosclerosis of the thoracic aor ta without aneurysm or dissection. There is patency of the imaged great vessels. The pulmonary artery is opacified to level the subsegmental branches and demonstrates no filling defects to suggest throm boembolic disease. CT CHEST: No thyroid nodule. The esophagus is fluid-filled and mildly distended with mild diffuse wall thickeni ng. No adenopathy. Patchy groundglass and consolidative opacities throughout the left upper lobe, kenney gula and left greater than right lower lobes and basal right middle lobe. Respiratory motion artifact limits evaluation of the lung parenchyma. Mild emphysema. There are a few scattered calcified pulmon fabricio granulomata. Mild bilateral bronchial wall thickening. Unremarkable soft tissues. Degenerative ch anges of the shoulders and spine. No acute fracture. CT ABDOMEN/PELVIS: There is no pneumatosis or pneumoperitoneum. The spleen, mildly atrophic pancreas, and liver appear u nremarkable. Patency of the hepatic and portal veins. Distended gallbladder. 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 Unremarkable kidneys. No hydronephrosis. Urinary bladder wall thickening with partial distention. Het erogeneous uterus. No adnexal mass lesions. Extensive atherosclerotic plaque of the abdominal aorta w ithout aneurysm. No adenopathy. No bowel obstruction or bowel wall thickening. Moderate fecal retenti on. Extensive colonic diverticulosis. No CT evidence of acute diverticulitis. Normal appendix. No asc ites or mesenteric inflammation. Posterior interbody ava and screw fusion noted at L2-S1. The left L2 pedicle screw partially extends into the L1-L2 disc space. Discectomy changes. The previously noted large disc extrusion at L1-L2 is better characterized on comparison MRI of the lumbar spine. IMPRESSION: 1. Cardiomegaly without pulmonary emboli. 2. Multilobar left greater than right bibasilar predominate alveolar and groundglass opacities sugges tive of multifocal pneumonia. 3. Mild emphysema. 4. Fluid-filled distended esophagus with diffuse esophageal wall thickening. 5. No bowel obstruction. Normal appendix. 6. Colonic diverticulosis. 7. Additional findings as above. ACT 112: Negative or not required by law. The above report was generated using voice recognition software. It may contain grammatical, syntax o r spelling errors. Electronically signed by: Stef Pineda M.D. 11/16/2020 2:08 PM
--- NOTE | 2020-11-16 14:13 | XRay Report ---
XR chest 1V portable HISTORY: 75 years-old Female SEPSIS acute sepsis COMPARISON: CTA chest of same day TECHNIQUE: Portable AP view of the chest FINDINGS: Cardiac silhouette is enlarged. Emphysema. No pneumothorax or pleural effusion. Left greater than rig ht bibasilar predominant airspace opacities. Degenerative changes of the shoulders and spine. Loose b kalli of the right subscapularis recess. IMPRESSION: 1. Left greater than right bibasilar airspace opacities suggestive of pneumonia. 2. Cardiomegaly without overt pulmonary edema. 3. Emphysema. ACT 112: Negative or not required by law. The above report was generated using voice recognition software. It may contain grammatical, syntax o r spelling errors. Electronically signed by: Stef Pineda M.D. 11/16/2020 2:12 PM
[2020-11-16] MEDS ORDERED: VANCOMYCIN CONSULT ACTIVE PRN (14:16)
[2020-11-16] MEDS ORDERED: VANCOMYCIN HCL 1,750 MG in SODIUM CHLORIDE 0.9% 500 ML IV ONE (14:16)
[2020-11-16] MEDS ORDERED: CEFEPIME 2,000 MG/20 ML VIAL IV STA (14:16)
--- NOTE | 2020-11-16 14:40 | Emergency Department Note ---
History of Present Illness General Chief complaint: Fever Stated complaint: FEVER Time Seen by Provider: 11/16/20 13:00 Source: patient and family (Daughter at bedside) History of Present Illness Provider complaint: Fever altered mental status cough Onset (ago): day(s) 1 Maximum Pain Intensity: 4 Associated symptoms: + confusion, + cough and + fever/chills; no syncope 75-year-old female presents emergency department with daughter at bedside for fever and confusion. Daughter reports that she saw her mother sitting on the porch this morning smoking a cigarette when she stated she was having chills. The daughter helped the patient going to bed and when she recheck, the patient was confused and felt hot to touch so she called 911. Patient is vaccine gets COVID-19. Daughter states the patient was recently discharged from this facility. No trauma today. Home Medications Medication Instructions Recorded Confirmed Type cholecalciferol (vitamin D3) 25 25 mcg PO DAILY 05/03/20 11/08/20 History mcg (1,000 unit) tablet (Vitamin D3) cyanocobalamin (vitamin B-12) 1,000 mcg PO DAILY 05/03/20 11/08/20 History 1,000 mcg tablet (Vitamin B-12) diltiazem HCl 180 mg 180 mg PO DAILY 05/03/20 11/08/20 History capsule,extended release 24 hr duloxetine 30 mg capsule,delayed 30 mg PO DAILY 05/03/20 11/08/20 History release duloxetine 60 mg capsule,delayed 60 mg PO DAILY 05/03/20 11/08/20 History release fenofibrate micronized 134 mg 134 mg PO DAILY 05/03/20 11/08/20 History capsule gabapentin 600 mg tablet 600 mg PO TID 05/03/20 11/08/20 History hydrochlorothiazide 25 mg tablet 25 mg PO DAILY 05/03/20 11/08/20 History idkedl-tdeugflb-dlfgnon 1 cap PO DIRECTED 05/03/20 11/08/20 History 24,000-76,000-120,000 unit capsule,delayed rel (Creon) lisinopril 40 mg tablet 40 mg PO DAILY 05/03/20 11/08/20 History metformin 500 mg tablet 1,000 mg PO BID 05/03/20 11/08/20 History omega-3 fatty acids 1,000 mg PO DAILY 05/03/20 11/08/20 History ondansetron 4 mg disintegrating 4 mg TRANSLINGUAL Q8H PRN 05/03/20 11/08/20 History tablet pramipexole 1 mg tablet 1 mg PO HS 05/03/20 11/08/20 History pravastatin 40 mg tablet 40 mg PO DAILY 05/03/20 11/08/20 History ropinirole 1 mg tablet 1 mg PO HS 05/03/20 11/08/20 History sucralfate 1 gram tablet 1 g PO DIRECTED PRN 05/03/20 11/08/20 History tramadol 50 mg tablet 50 mg PO DIRECTED PRN 05/03/20 10/01/20 History famotidine 20 mg tablet 20 mg PO BID #14 tab 05/06/20 10/01/20 Rx albuterol sulfate 90 mcg/actuation INHALATION 11/08/20 History aerosol inhaler liraglutide 0.6 mg/0.1 mL (18 mg/3 1.8 mg SUBCUT DAILY 11/08/20 11/08/20 History mL) subcutaneous pen injector ([employer] 3-Shady) oxycodone-acetaminophen 5 mg-325 1 tab PO Q6H PRN 11/08/20 11/08/20 History mg tablet pantoprazole 40 mg tablet,delayed 40 mg PO DAILY 11/08/20 11/08/20 History release umeclidinium 62.5 mcg-vilanterol 62.5 inh INHALATION DAILY 11/08/20 11/08/20 History 25 mcg/actuation powdr for inhalation (Anoro Ellipta) acetaminophen 325 mg tablet 650 mg PO Q4H PRN #30 tab 11/10/20 Rx nicotine 21 mg/24 hr daily 21 mg TRANSDERMAL QAM #28 ea 11/10/20 Rx transdermal patch (Nicoderm CQ) Allergies Allergy/AdvReac Type Severity Reaction Status Date / Time atorvastatin [From Lipitor] Allergy Intermediate Skin Rash Unverified 11/16/20 14:38 No Known Drug Allergies Allergy Unknown Verified 10/01/20 10:01 morphine AdvReac Intermediate Nausea Unverified 11/16/20 14:38 Past Med/Surg History Medical History AAA (abdominal aortic aneurysm) Acute lumbar radiculopathy Chronic low back pain Current smoker Depression Diabetes mellitus type 2 in obese GERD (gastroesophageal reflux disease) HTN (hypertension), benign Hyperlipidemia Obesity Peptic ulcer disease Restless leg syndrome Vitamin B12 deficiency Vitamin D deficiency Surgical History History of bilateral tubal ligation History of carpal tunnel release Left History of lumbar fusion History of repair of rotator cuff Right Family History Father Heart disease Brother Kidney disease Mother Gastric cancer Family/Other Testicular cancer Social History Smoking Status: Current every day smoker Tobacco Type: Cigarettes Age Started Using Tobacco: 11; Years Smoked: 63; Cigarettes Per Day: 20; Hx Alcohol Use: No Hx Substance Use: No Preferred Language: Azeri Communication Ability: Effective Wheel Alignment Technician Required: No Beliefs That Will Affect Care: None Current Living Situation: Family Current Living Situation Comment: with son Chet Feels Safe at Home: Yes Assistive Devices: Glasses Review of Systems Unobtainable due to cognitive status Physical Exam Vital Signs Vital Signs - 24 hr 11/16/20 12:54 11/16/20 13:03 11/16/20 13:13 Temperature 38.9 C H Temperature Source Oral Pulse Rate 101 H 98 H 86 Pulse Rate from SpO2 Sensor 98 H Pulse Rhythm Regular Respiratory Rate 20 20 Respiratory Effort / Characteristics Spontaneous Blood Pressure 99/56 L Blood Pressure Mean 70 Pulse Oximetry 84 L 82 L Oxygen Delivery Method Room Air Room Air Oxygen Flow Rate Sepsis Recent Fever Within 48 Hours Yes Sepsis New/Unexplained Change in Mental Status N/A Sepsis Action Taken by Nursing Physician Notified 11/16/20 13:14 11/16/20 13:30 11/16/20 13:45 Temperature Temperature Source Pulse Rate 86 90 Pulse Rate from SpO2 Sensor 91 H Pulse Rhythm Regular Respiratory Rate 20 20 16 Respiratory Effort / Characteristics Spontaneous Blood Pressure Blood Pressure Mean Pulse Oximetry 96 96 97 Oxygen Delivery Method Nasal Cannula Nasal Cannula Nasal Cannula Oxygen Flow Rate 4 4 4 Sepsis Recent Fever Within 48 Hours Sepsis New/Unexplained Change in Mental Status Sepsis Action Taken by Nursing 11/16/20 14:00 11/16/20 14:31 Temperature 37.3 C Temperature Source Oral Pulse Rate 85 Pulse Rate from SpO2 Sensor 85 Pulse Rhythm Respiratory Rate 21 Respiratory Effort / Characteristics Blood Pressure 115/63 Blood Pressure Mean 80 Pulse Oximetry 97 Oxygen Delivery Method Nasal Cannula Oxygen Flow Rate 4 Sepsis Recent Fever Within 48 Hours Sepsis New/Unexplained Change in Mental Status Sepsis Action Taken by Nursing Physical Exam HENT: Exam performed. -Head: Normocephalic and atraumatic. -Right Ear: External ear normal. No mastoid tenderness. -Left Ear: External ear normal. No mastoid tenderness. -Mouth/Throat: The oropharynx is clear and moist. No trismus in the jaw. No dental abscesses or uvula swelling. No oropharyngeal exudate or tonsillar abscesses. EYES: Conjunctivae and EOM are normal. Pupils are equal, round, and reactive to light. Right eye exhibits no discharge. Left eye exhibits no discharge. No scleral icterus. NECK: Normal range of motion. Neck supple. No JVD present. No spinous process tenderness present. No carotid bruit present. No rigidity. No tracheal deviation and normal range of motion present. No Brudzinski's sign and no Kernig's sign noted. CV: Tachycardic rate, regular rhythm, normal heart sounds and intact distal pulses. There is no peripheral edema. Palpable radial pulses bue. PULM/CHEST: Rhonchi bilaterally. -Chest Wall: She exhibits no tenderness. ABD: The abdomen is soft. MUSC/SKEL: Pelvis stable. LYMPH: No cervical adenopathy. NEURO: She is alert and oriented to time but not to person or place. She has normal strength. No cranial nerve deficit or sensory deficit. GCS eye subscore is 3. GCS verbal subscore is 4. GCS motor subscore is 5. Course Course 1300: The patient was evaluated in room B1. A complete history and physical exam was performed Cardiac monitoring: An order was placed for continuous cardiac monitoring. The monitor shows a rate of 105 with sinus tachycardia rhythm Patient was found to be hypoxic on room air 84%. Patient was applied suppl emental oxygen 4 L via nasal cannula which improved the patient's oxygen saturation. The patient did appear more alert after receiving the oxygen. The daughter at bedside states the patient does not usually wear oxygen. Given the patient's fever, altered mental status, and tachycardia, sepsis protocols were initiated. EMR reviewed.Patient was admitted to the hospital from November 08 to November 10, 2020, discharged 7 days ago. At that time she was admitted for altered mental status most likely due to polypharmacy. 1425: Vital signs stable on supplemental oxygen via nasal cannula. Labs show leukocytosis of 15.8. Neutrophil 14.52. VBG within normal limits. Lactic acid within normal limits. Toxicology labs were drawn given the patient's history of polypharmacy however the patient's daughter reports that she has been taking her medications as prescribed and there is no concern for any sort of suicide attempt. Salicylate and acetaminophen as well as medical alcohol level is within normal limits. Covid swab negative. CT of the head within normal limits. CTA of the chest shows no PE. CTA does show multilobular left greater than right basilar alveolar groundglass opacities suggestive of multifocal pneumonia. No bowel obstruction and normal appendix and CT of the abdomen. Patient treated with empiric broad-spectrum antibiotics Vanco and cefepime given the patient's recent 48-hour stay in the inpatient hospital setting. Patient will be admitted to the [facility]ist team Dr. Avalos notified. Administered Medications Discontinued Medications Sodium Chloride (Nss 1000ml) 1,000 mls @ 999 mls/hr IV .Q1H1M CLIVE Stop: 11/16/20 14:00 Last Infusion: 11/16/20 14:18 Dose: 0 mls/hr Documented by: [id number] Admin: 11/16/20 13:17 Dose: 999 mls/hr Documented by: [id number] Acetaminophen (Ofirmev) 1,000 mg in 100 mls @ 400 mls/hr IV NOW STA Stop: 11/16/20 13:15 Last Infusion: 11/16/20 13:32 Dose: 0 mls/hr Documented by: [id number] Admin: 11/16/20 13:17 Dose: 400 mls/hr Documented by: [id number] Cefepime HCl (Maxipime) 2,000 mg in 20 mls @ 5 mls/min IV NOW STA; Protocol Stop: 11/16/20 14:19 Last Admin: 11/16/20 14:23 Dose: 5 mls/min Documented by: [id number] Ioversol (Optiray 320 125ml) 118 ml IV ONCE ONE Stop: 11/16/20 13:06 Last Admin: 11/16/20 13:06 Dose: 118 ml Documented by: [id number] Critical Care Time Critical Care Time: Yes Total Critical Care Time: 76 I have personally spent greater than 76 minutes of critical care time in the direct management of this patient. This includes bedside care, interpretation of diagnostic studies, and testing, discussion with consultants, patient, and family members, and other required patient management activities. This 76 minutes is in excess of all separately billable procedures. Medical Decision Making Laboratory Data Result diagrams: 11/16/20 13:14 11/16/20 13:14 Lab Results 11/16/20 11/16/20 11/16/20 Range/Units 13:02 13:02 13:14 WBC 15.84 H (4.8-10.8) K/uL RBC 4.89 (4.2-5.4) M/uL Hgb 14.5 (12.0-16.0) g/dL POC Hgb (12.0-16.0) g/dl Hct 44.4 (37-47) % POC Hct (37-47) % MCV 90.8 (80-100) fL MCH 29.7 (25-34) pg MCHC 32.7 (32-36) g/dL RDW Std Deviation 48.1 H (36.4-46.3) fL RDW Coeff of [place] 14.5 (11.5-14.5) % Plt Count 338 (130-400) K/uL MPV 10.0 (7.4-10.4) fL Immature Gran % (Auto) 0.2 % Neut % (Auto) 91.6 % Lymph % (Auto) 3.5 % [place] % (Auto) 4.5 % Eos % (Auto) 0.1 % Baso % (Auto) 0.1 % Neut # (Auto) 14.52 H (1.4-6.5) K/uL Lymph # (Auto) 0.55 L (1.2-3.4) K/uL [place] # (Auto) 0.71 H (0.11-0.59) K/uL Eos # (Auto) 0.02 (0-0.5) K/uL Baso # (Auto) 0.01 (0-0.2) K/uL Immature Gran # (Auto) 0.03 H (0.00-0.02) K/uL PT (9.0-12.0) Seconds INR (0.9-1.1) APTT (21.0-31.0) Seconds PTT Ratio VBG pH (7.36-7.41) VBG pCO2 (38-50) mmHg VBG pO2 mmHg VBG HCO3 mmol/L VBG O2 Saturation % VBG Base Excess mEq/L Barometric Pressure mm/Hg POC Sodium (135-144) mmol/L Sodium (136-145) mmol/L POC Potassium (3.3-5.0) mmol/L Potassium (3.5-5.1) mmol/L POC Chloride (101-112) mmol/L Chloride (98-107) mmol/L Carbon Dioxide (21-32) mmol/L POC Total CO2 (24-31) mmol/L Anion Gap (3-11) POC Anion Gap (16-25) mmol/L POC BUN (7-18) mg/dl BUN (7-18) mg/dl Creatinine (0.6-1.2) mg/dl POC Creatinine (0.6-1.3) mg/dl Est Cr Clr Drug Dosing Est GFR ( Amer) ml/min Est GFR (Non-Af Amer) ml/min BUN/Creatinine Ratio (10-20) Glucose (70-99) mg/dl POC Glucose (other) (70-99) mg/dl Lactate (0.4-2.0) mmol/L Calcium (8.5-10.1) mg/dl POC Ioniz Calcium Hayde (1.12-1.32) mmol/l Magnesium (1.8-2.4) mg/dl Total Bilirubin (0.2-1) mg/dl AST (15-37) U/L ALT (12-78) U/L Alkaline Phosphatase (45-117) U/L Ammonia (11-32) umol/L Troponin I (0-0.045) ng/ml Total Protein (6.4-8.2) gm/dl Albumin (3.4-5.0) gm/dl Globulin (2.5-4.0) gm/dl Albumin/Globulin Ratio (0.9-2) Specimen Hemolysis Salicylates (2.8-20) mg/dl Acetaminophen (10-30) ug/ml Ethyl Alcohol mg/dL (0-3) mg/dl COVID-19 Eval Order Covid19 at [facility] SARS-CoV-2 (PCR) NEGATIVE (Negative) 11/16/20 11/16/20 11/16/20 Range/Units 13:14 13:14 13:15 WBC (4.8-10.8) K/uL RBC (4.2-5.4) M/uL Hgb (12.0-16.0) g/dL POC Hgb (12.0-16.0) g/dl Hct (37-47) % POC Hct (37-47) % MCV (80-100) fL MCH (25-34) pg MCHC (32-36) g/dL RDW Std Deviation (36.4-46.3) fL RDW Coeff of [place] (11.5-14.5) % Plt Count (130-400) K/uL MPV (7.4-10.4) fL Immature Gran % (Auto) % Neut % (Auto) % Lymph % (Auto) % [place] % (Auto) % Eos % (Auto) % Baso % (Auto) % Neut # (Auto) (1.4-6.5) K/uL Lymph # (Auto) (1.2-3.4) K/uL [place] # (Auto) (0.11-0.59) K/uL Eos # (Auto) (0-0.5) K/uL Baso # (Auto) (0-0.2) K/uL Immature Gran # (Auto) (0.00-0.02) K/uL PT 10.2 (9.0-12.0) Seconds INR 1.0 (0.9-1.1) APTT 21.2 (21.0-31.0) Seconds PTT Ratio 0.8 VBG pH (7.36-7.41) VBG pCO2 (38-50) mmHg VBG pO2 mmHg VBG HCO3 mmol/L VBG O2 Saturation % VBG Base Excess mEq/L Barometric Pressure mm/Hg POC Sodium (135-144) mmol/L Sodium 138 (136-145) mmol/L POC Potassium (3.3-5.0) mmol/L Potassium 4.4 (3.5-5.1) mmol/L POC Chloride (101-112) mmol/L Chloride 103 (98-107) mmol/L Carbon Dioxide 30 (21-32) mmol/L POC Total CO2 (24-31) mmol/L Anion Gap 5.0 (3-11) POC Anion Gap (16-25) mmol/L POC BUN (7-18) mg/dl BUN 20 H (7-18) mg/dl Creatinine 0.96 (0.6-1.2) mg/dl POC Creatinine (0.6-1.3) mg/dl Est Cr Clr Drug Dosing Not Reportable Est GFR ( Amer) 66.6 ml/min Est GFR (Non-Af Amer) 57.4 ml/min BUN/Creatinine Ratio 20.9 H (10-20) Glucose 124 H (70-99) mg/dl POC Glucose (other) (70-99) mg/dl Lactate (0.4-2.0) mmol/L Calcium 9.3 (8.5-10.1) mg/dl POC Ioniz Calcium Hayde (1.12-1.32) mmol/l Magnesium 1.7 L (1.8-2.4) mg/dl Total Bilirubin 0.5 (0.2-1) mg/dl AST 18 (15-37) U/L ALT 19 (12-78) U/L Alkaline Phosphatase 53 (45-117) U/L Ammonia (11-32) umol/L Troponin I 0.020 (0-0.045) ng/ml Total Protein 7.3 (6.4-8.2) gm/dl Albumin 3.4 (3.4-5.0) gm/dl Globulin 3.9 (2.5-4.0) gm/dl Albumin/Globulin Ratio 0.9 (0.9-2) Specimen Hemolysis Salicylates < 1.7 L (2.8-20) mg/dl Acetaminophen < 2 L (10-30) ug/ml Ethyl Alcohol mg/dL (0-3) mg/dl COVID-19 Eval Order SARS-CoV-2 (PCR) (Negative) 11/16/20 11/16/20 11/16/20 Range/Units 13:19 13:30 13:30 WBC (4.8-10.8) K/uL RBC (4.2-5.4) M/uL Hgb (12.0-16.0) g/dL POC Hgb 15.3 (12.0-16.0) g/dl Hct (37-47) % POC Hct 45 (37-47) % MCV (80-100) fL MCH (25-34) pg MCHC (32-36) g/dL RDW Std Deviation (36.4-46.3) fL RDW Coeff of [place] (11.5-14.5) % Plt Count (130-400) K/uL MPV (7.4-10.4) fL Immature Gran % (Auto) % Neut % (Auto) % Lymph % (Auto) % [place] % (Auto) % Eos % (Auto) % Baso % (Auto) % Neut # (Auto) (1.4-6.5) K/uL Lymph # (Auto) (1.2-3.4) K/uL [place] # (Auto) (0.11-0.59) K/uL Eos # (Auto) (0-0.5) K/uL Baso # (Auto) (0-0.2) K/uL Immature Gran # (Auto) (0.00-0.02) K/uL PT (9.0-12.0) Seconds INR (0.9-1.1) APTT (21.0-31.0) Seconds PTT Ratio VBG pH 7.38 (7.36-7.41) VBG pCO2 51 H (38-50) mmHg VBG pO2 54 mmHg VBG HCO3 29 mmol/L VBG O2 Saturation 86.3 % VBG Base Excess 3.2 mEq/L Barometric Pressure 728.5 mm/Hg POC Sodium 139 (135-144) mmol/L Sodium (136-145) mmol/L POC Potassium 4.5 (3.3-5.0) mmol/L Potassium (3.5-5.1) mmol/L POC Chloride 100 L (101-112) mmol/L Chloride (98-107) mmol/L Carbon Dioxide (21-32) mmol/L POC Total CO2 28 (24-31) mmol/L Anion Gap (3-11) POC Anion Gap 16.0 (16-25) mmol/L POC BUN 23 H (7-18) mg/dl BUN (7-18) mg/dl Creatinine (0.6-1.2) mg/dl POC Creatinine 0.8 (0.6-1.3) mg/dl Est Cr Clr Drug Dosing Est GFR ( Amer) ml/min Est GFR (Non-Af Amer) ml/min BUN/Creatinine Ratio (10-20) Glucose (70-99) mg/dl POC Glucose (other) 132 H (70-99) mg/dl Lactate 1.9 (0.4-2.0) mmol/L Calcium (8.5-10.1) mg/dl POC Ioniz Calcium [place]de 1.14 (1.12-1.32) mmol/l Magnesium (1.8-2.4) mg/dl Total Bilirubin (0.2-1) mg/dl AST (15-37) U/L ALT (12-78) U/L Alkaline Phosphatase (45-117) U/L Ammonia (11-32) umol/L Troponin I (0-0.045) ng/ml Total Protein (6.4-8.2) gm/dl Albumin (3.4-5.0) gm/dl Globulin (2.5-4.0) gm/dl Albumin/Globulin Ratio (0.9-2) Specimen Hemolysis Salicylates (2.8-20) mg/dl Acetaminophen (10-30) ug/ml Ethyl Alcohol mg/dL (0-3) mg/dl COVID-19 Eval Order SARS-CoV-2 (PCR) (Negative) 11/16/20 11/16/20 Range/Units 13:30 13:30 WBC (4.8-10.8) K/uL RBC (4.2-5.4) M/uL Hgb (12.0-16.0) g/dL POC Hgb (12.0-16.0) g/dl Hct (37-47) % POC Hct (37-47) % MCV (80-100) fL MCH (25-34) pg MCHC (32-36) g/dL RDW Std Deviation (36.4-46.3) fL RDW Coeff of [place] (11.5-14.5) % Plt Count (130-400) K/uL MPV (7.4-10.4) fL Immature Gran % (Auto) % Neut % (Auto) % Lymph % (Auto) % [place] % (Auto) % Eos % (Auto) % Baso % (Auto) % Neut # (Auto) (1.4-6.5) K/uL Lymph # (Auto) (1.2-3.4) K/uL [place] # (Auto) (0.11-0.59) K/uL Eos # (Auto) (0-0.5) K/uL Baso # (Auto) (0-0.2) K/uL Immature Gran # (Auto) (0.00-0.02) K/uL PT (9.0-12.0) Seconds INR (0.9-1.1) APTT (21.0-31.0) Seconds PTT Ratio VBG pH (7.36-7.41) VBG pCO2 (38-50) mmHg VBG pO2 mmHg VBG HCO3 mmol/L VBG O2 Saturation % VBG Base Excess mEq/L Barometric Pressure mm/Hg POC Sodium (135-144) mmol/L Sodium (136-145) mmol/L POC Potassium (3.3-5.0) mmol/L Potassium (3.5-5.1) mmol/L POC Chloride (101-112) mmol/L Chloride (98-107) mmol/L Carbon Dioxide (21-32) mmol/L POC Total CO2 (24-31) mmol/L Anion Gap (3-11) POC Anion Gap (16-25) mmol/L POC BUN (7-18) mg/dl BUN (7-18) mg/dl Creatinine (0.6-1.2) mg/dl POC Creatinine (0.6-1.3) mg/dl Est Cr Clr Drug Dosing Est GFR ( Amer) ml/min Est GFR (Non-Af Amer) ml/min BUN/Creatinine Ratio (10-20) Glucose (70-99) mg/dl POC Glucose (other) (70-99) mg/dl Lactate (0.4-2.0) mmol/L Calcium (8.5-10.1) mg/dl POC Ioniz Calcium Hayde (1.12-1.32) mmol/l Magnesium (1.8-2.4) mg/dl Total Bilirubin (0.2-1) mg/dl AST (15-37) U/L ALT (12-78) U/L Alkaline Phosphatase (45-117) U/L Ammonia 25.0 (11-32) umol/L Troponin I (0-0.045) ng/ml Total Protein (6.4-8.2) gm/dl Albumin (3.4-5.0) gm/dl Globulin (2.5-4.0) gm/dl Albumin/Globulin Ratio (0.9-2) Specimen Hemolysis Salicylates (2.8-20) mg/dl Acetaminophen (10-30) ug/ml Ethyl Alcohol mg/dL < 3.0 (0-3) mg/dl COVID-19 Eval Order SARS-CoV-2 (PCR) (Negative) Imaging Data Radiologist's Impression: Chest X-Ray 11/16/20 13:00 XR chest 1V portable HISTORY: 75 years-old Female SEPSIS acute sepsis COMPARISON: CTA chest of same day TECHNIQUE: Portable AP view of the chest FINDINGS: Cardiac silhouette is enlarged. Emphysema. No pneumothorax or pleural effusion. Left greater than right bibasilar predominant airspace opacities. Degenerative changes of the shoulders and spine. Loose body of the right subscapularis recess. IMPRESSION: 1. Left greater than right bibasilar airspace opacities suggestive of pneumonia. 2. Cardiomegaly without overt pulmonary edema. 3. Emphysema. ACT 112: Negative or not required by law. The above report was generated using voice recognition software. It may contain grammatical, syntax or spelling errors. Electronically signed by: Stef Pineda M.D. 11/16/2020 2:12 PM Chest CTA 11/16/20 13:02 CT angio chest PE protocol, CT abd pelvis IV con only CT DOSE: 1506.53 mGycm HISTORY: 75 years-old Female with hypoxia ams. Acute hypoxia with altered mental status and acute generalized abdominal pain with nausea. TECHNIQUE: Multiple CTA images of the chest were obtained after the intravenous administration of 118 ml Optiray. Coronal and sagittal MIPS were obtained from the axial data set and were submitted for review. All measurements were obtained according to NASCET criteria. CT abdomen pelvis with IV contrast only also obtained. A dose lowering technique was utilized adhering to the principles of ALARA. COMPARISON: CT abdomen pelvis an MRI lumbar spine 05/03/2020. FINDINGS: CTA: Moderate cardiomegaly. There is no pericardial effusion. Moderate atherosclerosis of the thoracic aorta without aneurysm or dissection. There is patency of the imaged great vessels. The pulmonary artery is opacified to level the subsegmental branches and demonstrates no filling defects to suggest thromboembolic disease. CT CHEST: No thyroid nodule. The esophagus is fluid-filled and mildly distended with mild diffuse wall thickening. No adenopathy. Patchy groundglass and consolidative opacities throughout the left upper lobe, lingula and left greater than right lower lobes and basal right middle lobe. Respiratory motion artifact limits evaluation of the lung parenchyma. Mild emphysema. There are a few scattered calcified pulmonary granulomata. Mild bilateral bronchial wall thickening. Unremarkable soft tissues. Degenerative changes of the shoulders and spine. No acute fracture. CT ABDOMEN/PELVIS: There is no pneumatosis or pneumoperitoneum. The spleen, mildly atrophic pancreas, and liver appear unremarkable. Patency of the hepatic and portal veins. Distended gallbladder. 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 Unremarkable kidneys. No hydronephrosis. Urinary bladder wall thickening with partial distention. Heterogeneous uterus. No adnexal mass lesions. Extensive atherosclerotic plaque of the abdominal aorta without aneurysm. No adenopathy. No bowel obstruction or bowel wall thickening. Moderate fecal retention. Extensive colonic diverticulosis. No CT evidence of acute diverticulitis. Normal appendix. No ascites or mesenteric inflammation. Posterior interbody ava and screw fusion noted at L2-S1. The left L2 pedicle screw partially extends into the L1-L2 disc space. Discectomy changes. The previously noted large disc extrus ion at L1-L2 is better characterized on comparison MRI of the lumbar spine. IMPRESSION: 1. Cardiomegaly without pulmonary emboli. 2. Multilobar left greater than right bibasilar predominate alveolar and groundglass opacities suggestive of multifocal pneumonia. 3. Mild emphysema. 4. Fluid-filled distended esophagus with diffuse esophageal wall thickening. 5. No bowel obstruction. Normal appendix. 6. Colonic diverticulosis. 7. Additional findings as above. ACT 112: Negative or not required by law. The above report was generated using voice recognition software. It may contain grammatical, syntax or spelling errors. Electronically signed by: Stef Pineda M.D. 11/16/2020 2:[address] 11/16/20 13:02 CT head/brain wo con CLINICAL HISTORY: 75 years-old Female with ams. Acutely altered mental status TECHNIQUE: Multiple axial CT images of the head were obtained without contrast. A dose lowering technique was utilized adhering to the principles of ALARA. CT DOSE: 582.94 mGycm COMPARISON: Head CT 11/08/2020 FINDINGS: No acute intracranial hemorrhage, midline shift, intracranial mass, hydrocephalus, territorial ischemia or abnormal extra-axial collection. Extensive white matter hypodensities redemonstrated suggestive of chronic microvascular ischemic disease. The calvarium is intact. Mastoid air cells are clear. Polypoid mucosal thickening of the left maxillary sinus is partially imaged. Unremarkable soft tissues. Prior bilateral lens repair. IMPRESSION: No acute intracranial abnormality. ACT 112: Negative or not required by law. The above report was generated using voice recognition software. It may contain grammatical, syntax or spelling errors. Electronically signed by: Stef Pineda M.D. 11/16/2020 1:48 PM Abdomen/Pelvis CT 11/16/20 13:08 CT angio chest PE protocol, CT abd pelvis IV con only CT DOSE: 1506.53 mGycm HISTORY: 75 years-old Female with hypoxia ams. Acute hypoxia with altered mental status and acute generalized abdominal pain with nausea. TECHNIQUE: Multiple CTA images of the chest were obtained after the intravenous administration of 118 ml Optiray. Coronal and sagittal MIPS were obtained from the axial data set and were submitted for review. All measurements were obtained according to NASCET criteria. CT abdomen pelvis with IV contrast only also obtained. A dose lowering technique was utilized adhering to the principles of ALARA. COMPARISON: CT abdomen pelvis an MRI lumbar spine 05/03/2020. FINDINGS: CTA: Moderate cardiomegaly. There is no pericardial effusion. Moderate atherosclerosis of the thoracic aorta without aneurysm or dissection. There is patency of the imaged great vessels. The pulmonary artery is opacified to level the subsegmental branches and demonstrates no filling defects to suggest thromboembolic disease. CT CHEST: No thyroid nodule. The esophagus is fluid-filled and mildly distended with mild diffuse wall thickening. No adenopathy. Patchy groundglass and consolidative opacities throughout the left upper lobe, lingula and left greater than right lower lobes and basal right middle lobe. Respiratory motion artifact limits evaluation of the lung parenchyma. Mild emphysema. There are a few scattered calcified pulmonary granulomata. Mild bilateral bronchial wall thickening. Unremarkable soft tissues. Degenerative changes of the shoulders and spine. No acute fracture. CT ABDOMEN/PELVIS: There is no pneumatosis or pneumoperitoneum. The spleen, mildly atrophic pancreas, and liver appear unremarkable. Patency of the hepatic and portal veins. Distended gallbladder. 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 Unremarkable kidneys. No hydronephrosis. Urinary bladder wall thickening with partial distention. Heterogeneous uterus. No adnexal mass lesions. Extensive atherosclerotic plaque of the abdominal aorta without aneurysm. No adenopathy. No bowel obstruction or bowel wall thickening. Moderate fecal retention. Extensive colonic diverticulosis. No CT evidence of acute diverticulitis. Normal appendix. No ascites or mesenteric inflammation. Posterior interbody ava and screw fusion noted at L2-S1. The left L2 pedicle screw partially extends into the L1-L2 disc space. Discectomy changes. The previously noted large disc extrusion at L1-L2 is better characterized on comparison MRI of the lumbar spine. IMPRESSION: 1. Cardiomegaly without pulmonary emboli. 2. Multilobar left greater than right bibasilar predominate alveolar and groundglass opacities suggestive of multifocal pneumonia. 3. Mild emphysema. 4. Fluid-filled distended esophagus with diffuse esophageal wall thickening. 5. No bowel obstruction. Normal appendix. 6. Colonic diverticulosis. 7. Additional findings as above. ACT 112: Negative or not required by law. The above report was generated using voice recognition software. It may contain grammatical, syntax or spelling errors. Electronically signed by: Stef Pineda M.D. 11/16/2020 2:08 PM ECG Data Indication: + altered mental status Rate (beats per minute): 100 Rhythm: + normal sinus ECG Intervals/blocks: + Normal KS and + Normal QT-c ECG ST segments: + Normal ST segments ECG Findings: + PVCs Additional Comments: QRS 76 MDM Narrative 1300: The patient was evaluated in room B1. A complete history and physical exam was performed Cardiac monitoring: An order was placed for continuous cardiac monitoring. The monitor shows a rate of 105 with sinus tachycardia rhythm Patient was found to be hypoxic on room air 84%. Patient was applied supplemental oxygen 4 L via nasal cannula which improved the patient's oxygen saturation. The patient did appear more alert after receiving the oxygen. The daughter at bedside states the patient does not usually wear oxygen. Given the patient's fever, altered mental status, and tachycardia, sepsis protocols were initiated. EMR reviewed.Patient was admitted to the hospital from November 08 to November 10, 2020, discharged 7 days ago. At that time she was admitted for altered mental status most likely due to polypharmacy. 1425: Vital signs stable on supplemental oxygen via nasal cannula. Labs show leukocytosis of 15.8. Neutrophil 14.52. VBG within normal limits. Lactic acid within normal limits. Toxicology labs were drawn given the patient's history of polypharmacy however the patient's daughter reports that she has been taking her medications as prescribed and there is no concern for any sort of suicide attempt. Salicylate and acetaminophen as well as medical alcohol level is within normal limits. Covid swab negative. CT of the head within normal limits. CTA of the chest shows no PE. CTA does show multilobular left greater than right basilar alveolar groundglass opacities suggestive of multifocal pneumonia. No bowel obstruction and normal appendix and CT of the abdomen. Patient treated with empiric broad-spectrum antibiotics Vanco and cefepime given the patient's recent 48-hour stay in the inpatient hospital setting. Patient will be admitted to the [facility] hospitalist team Dr. Avalos notified. Impression & Plan Hypoxia, Sepsis, Pneumonia Discharge Plan Visit Data Chief Complaint: Fever Stated Complaint: FEVER ED Provider: Ben Garcia Discharge Problem: Hypoxia, Sepsis, Pneumonia Patient Disposition: Admitted As Inpatient Forms Stand Alone Forms: [facility] Prescriptions Prescriptions: No Action pramipexole 1 mg tablet 1 mg PO HS RF: 0 metformin 500 mg tablet 1,000 mg PO BID RF: 0 gabapentin 600 mg tablet 600 mg PO TID RF: 0 ropinirole 1 mg tablet 1 mg PO HS RF: 0 pravastatin 40 mg tablet 40 mg PO DAILY RF: 0 diltiazem HCl 180 mg capsule,extended release 24hr 180 mg PO DAILY RF: 0 sucralfate 1 gram tablet 1 g PO DIRECTED PRN (Reason: Indigestion) RF: 0 cyanocobalamin (vitamin B-12) [Vitamin B-12] 1,000 mcg Tablet 1,000 mcg PO DAILY RF: 0 tramadol 50 mg tablet 50 mg PO DIRECTED PRN (Reason: Pain) RF: 0 fenofibrate micronized 134 mg capsule 134 mg PO DAILY RF: 0 hydrochlorothiazide 25 mg tablet 25 mg PO DAILY RF: 0 lisinopril 40 mg tablet 40 mg PO DAILY RF: 0 ondansetron 4 mg tablet,disintegrating 4 mg translingual Q8H PRN (Reason: Nausea) RF: 0 omega-3 fatty acids Capsule 1,000 mg PO DAILY RF: 0 duloxetine 30 mg capsule,delayed release(DR/EC) 30 mg PO DAILY RF: 0 duloxetine 60 mg capsule,delayed release(DR/EC) 60 mg PO DAILY RF: 0 cholecalciferol (vitamin D3) [Vitamin D3] 25 mcg (1,000 unit) Tablet 25 mcg PO DAILY RF: 0 Creon 24,000-76,000 -120,000 unit capsule,delayed release(DR/EC) 1 cap PO DIRECTED RF: 0 famotidine 20 mg tablet 20 mg PO BID Qty: 14 RF: 0 oxycodone-acetaminophen 5-325 mg tablet 1 tab PO Q6H PRN (Reason: Pain) RF: 0 albuterol sulfate 90 mcg/actuation HFA aerosol inhaler INHALATION RF: 0 Victoza 3-Shady 0.6 mg/0.1 mL (18 mg/3 mL) pen injector 1.8 mg SUBCUT DAILY RF: 0 Anoro Ellipta 62.5-25 mcg/actuation blister with device 62.5 inh INHALATION DAILY RF: 0 pantoprazole 40 mg tablet,delayed release (DR/EC) 40 mg PO DAILY RF: 0 acetaminophen 325 mg Tablet 650 mg PO Q4H PRN (Reason: fever or pain) Qty: 30 RF: 0 nicotine [Nicoderm CQ] 21 mg/24 hr Patch 24 Hour 21 mg transdermal QAM Qty: 28 RF: 0 Referrals Referrals: Manny Bland DO [Primary Care Provider] -
--- NOTE | 2020-11-16 14:49 | History & Physical Report ---
Date of Service November 16, 2020 Assessment & Plan (1) AMS (altered mental status): Plan: Silvia is a 75-year-old female with a past medical history of COPD, tobacco use, hyperlipidemia, type 2 diabetes mellitus, GERD, hypertension, depression, severe proteincalorie malnutrition, and sensorineural hearing loss who presents with [] and was found to be febrile to 38.9 on admission with a low blood pressure, pulse of 101, and leukocytosis to 15.[address] consistent with acute multifocal pneumonia Altered mental status 2/2Metabolic encephalopathy Medical alcohol negative, ammonia within normal limits, Tylenol negative, salicylate negative CTH: No acute intracranial abnormality Suspect 2/2 metabolic encephalopathy of pneumonia, see below (2) Acute respiratory failure with hypoxia: Plan: Acute hypoxic respiratory failure 2/2 Leukocytosis to 15.84. SPO2 84 on room air on admission, improved to 97% on 4 L Febrile to 38.9 on admission Covid test negative CTAchest: Cardiomegaly without evidence of pulmonary emboli. Multi lobar left greater than right bibasilar alveolar and groundglass opacities suggestive of multifocal pneumonia. Mild emphysema. Fluid-filled distended esophagus with distal esophageal wall thickening. Diverticulosis without diverticulitis appreciated. Troponin negative VBG with pH/PCO2/PO2/HCO3: 7.3 8/51(H)/54/29 Blood cultures pending Received empiric cefepime/Vanco in ED Continue cefepime/azithromycin MRSA nare pending (3) COPD (chronic obstructive pulmonary disease): Plan: COPD with history of tobacco use Continue Anoro Ellipta daily DuoNebs every 4 hours as needed Pulmonary toilet No PFTs available for review (4) Severe protein-calorie malnutrition: Plan: Malnutrition Nutrition consult, boost (5) Current smoker: Plan: - Nicotine 21mcg patch (6) Hyperlipidemia: Plan: Hyperlipidemia Continue home fenofibrate 134 mg daily Continue pravastatin 40 mg p.o. daily (7) Diabetes mellitus type 2 in obese: Plan: Type 2 diabetes mellitus Hold home metformin, hold home Victoza A1c 11/09/2020 8.6 Lantus 12 units daily SSI insulin, correction factor 55, carb ratio 1:20 Glucose checks AC/at bedtime (8) GERD (gastroesophageal reflux disease): Plan: GERD Famotidine 10 mg twice daily as needed Protonix 40 mg daily (9) HTN (hypertension), benign: Plan: Hypertension -Hold home hydrochlorothiazide for hypotension Hold home lisinopril 40 mg for hypotension Hold diltiazem (10) Acute lumbar radiculopathy: Plan: - Continue voltarin - Continue home oxycodone, tramadol (11) SHELDON on CPAP: Plan: SHELDON on home CPAP CPAP per protocol (12) Depression: Plan: Depression -Continue home duloxetine (13) DVT prophylaxis: Plan: DVT prophylaxis: Heparin 5000 BID Diet: DM2 Disposition: Med/Tele CODE STATUS: DNR. Pt OK with trial of intubation for declining respiratory status. History of Present Illness Chief Complaint: Altered mental status, fever Primary Care Provider: Manny Bland DO Silvia is a 75-year-old female with a past medical history of COPD, tobacco use, hyperlipidemia, type 2 diabetes mellitus, GERD, hypertension, depression, severe proteincalorie malnutrition, and sensorineural hearing loss who presents with [] and was found to be febrile to 38.9 on admission with a low blood pressure, pulse of 101, and leukocytosis to 15.[address] consistent with acute multifocal pneumonia Silvia seen at the bedside with her daughter, Silvia. The patient reports that she was in her otherwise normal well state of health yesterday, and "even went out and got my haircut ". This morning she developed chills, fever, and felt like she was "burning up". Her daughter reported that she talk to her on the phone and noted her mother seemed confused and was hallucinating which prompted them to bring her to the emergency department. Silvia denies shortness of breath or chest pain, endorses one episode of bowel incontinence which is unusual for her. She endorses chronic cough productive for phlegm which has not changed recently. She reports 1.5 pack/day tobacco use for many decades and is not interested in quitting. She also has a history of sleep apnea on CPAP, although has had difficulty getting her CPAP covered with insurance. She does not see a decaler. She has a history of COPD on Anoro Ellipta and albuterol as needed. She denies increased wheezing, although notes cough with some wheezing at baseline. Denies nausea/vomiting at time of assessment. Reports her appetite has been "okay "and unchanged. She took her oxycodone this morning, otherwise has not taken any of her daily medications. Denies alcohol/recreational drug intake. Recent hospitalization for polypharmacy, notes several med changes which have been updated in the EMR. She notes her spinal specialist who she sees for low back pain with lumbar hardware placed her back on oxycodone due to worsening and chronic pain.Reports several falls at home in the last month due to poor balance, and pain, although denies focal weakness. She is vaccinated against Covid No sick contacts at home. No recent Covid contacts for her knowledge. Medical History: Reviewed Medications: Reviewed Surgical History: Reviewed Allergies: Reviewed Social History: Endorses 1.5 pack/day tobacco use. Denies alcohol, recreational drug use. Lives in a home with her son and brother which has stairs. Is likely moving into her daughter Silvia's home which is a little only on the first floor. Has help at home. Code Status:Discussed with patient and her daughter at bedside. DNR, but okay with a trial of intubation for declining respiratory status if medically indicated. Allergies Allergy/AdvReac Type Severity Reaction Status Date / Time atorvastatin [From Lipitor] Allergy Intermediate Skin Rash Unverified 11/16/20 14:38 No Known Drug Allergies Allergy Unknown Verified 10/01/20 10:01 morphine AdvReac Intermediate Nausea Unverified 11/16/20 14:38 Home Medications Medication Instructions Recorded Confirmed Type cholecalciferol (vitamin D3) 25 25 mcg PO DAILY 05/03/20 11/08/20 History mcg (1,000 unit) tablet (Vitamin D3) cyanocobalamin (vitamin B-12) 1,000 mcg PO DAILY 05/03/20 11/08/20 History 1,000 mcg tablet (Vitamin B-12) diltiazem HCl 180 mg 180 mg PO DAILY 05/03/20 11/08/20 History capsule,extended release 24 hr duloxetine 30 mg capsule,delayed 30 mg PO DAILY 05/03/20 11/08/20 History release duloxetine 60 mg capsule,delayed 60 mg PO DAILY 05/03/20 11/08/20 History release fenofibrate micronized 134 mg 134 mg PO DAILY 05/03/20 11/08/20 History capsule gabapentin 600 mg tablet 600 mg PO TID 05/03/20 11/08/20 History hydrochlorothiazide 25 mg tablet 25 mg PO DAILY 05/03/20 11/08/20 History lisinopril 40 mg tablet 40 mg PO DAILY 05/03/20 11/08/20 History metformin 500 mg tablet 1,000 mg PO BID 05/03/20 11/08/20 History omega-3 fatty acids 1,000 mg PO DAILY 05/03/20 11/08/20 History ondansetron 4 mg disintegrating 4 mg TRANSLINGUAL Q8H PRN 05/03/20 11/08/20 History tablet pramipexole 1 mg tablet 1 mg PO HS 05/03/20 11/08/20 History pravastatin 40 mg tablet 40 mg PO DAILY 05/03/20 11/08/20 History sucralfate 1 gram tablet 1 g PO DIRECTED PRN 05/03/20 11/08/20 History tramadol 50 mg tablet 50 mg PO DIRECTED PRN 05/03/20 10/01/20 History famotidine 20 mg tablet 20 mg PO BID #14 tab 05/06/20 10/01/20 Rx albuterol sulfate 90 mcg/actuation INHALATION 11/08/20 History aerosol inhaler oxycodone-acetaminophen 5 mg-325 1 tab PO Q6H PRN 11/08/20 11/08/20 History mg tablet pantoprazole 40 mg tablet,delayed 40 mg PO DAILY 11/08/20 11/08/20 History release umeclidinium 62.5 mcg-vilanterol 62.5 inh INHALATION DAILY 11/08/20 11/08/20 History 25 mcg/actuation powdr for inhalation (Anoro Ellipta) acetaminophen 325 mg tablet 650 mg PO Q4H PRN #30 tab 11/10/20 Rx nicotine 21 mg/24 hr daily 21 mg TRANSDERMAL QAM #28 ea 11/10/20 Rx transdermal patch (Nicoderm CQ) diclofenac sodium 1 % topical gel 2 g TOPICAL QID PRN 11/16/20 11/16/20 History oxycodone myristate 9 mg capsule 9 mg PO BID PRN 11/16/20 11/16/20 History sprinkle extended release 12 hr(DON'T CRUSH) (Xtampza ER) Past Med/Surg History Medical History AAA (abdominal aortic aneurysm) Acute lumbar radiculopathy Chronic low back pain Current smoker Depression Diabetes mellitus type 2 in obese GERD (gastroesophageal reflux disease) HTN (hypertension), benign Hyperlipidemia Obesity Peptic ulcer disease Restless leg syndrome Vitamin B12 deficiency Vitamin D deficiency Surgical History History of bilateral tubal ligation History of carpal tunnel release Left History of lumbar fusion History of repair of rotator cuff Right Family History Father Heart disease Brother Kidney disease Mother Gastric cancer Family/Other Testicular cancer Social History Smoking Status: Current every day smoker Tobacco Type: Cigarettes Age Started Using Tobacco: 11; Years Smoked: 63; Cigarettes Per Day: 20; Hx Alcohol Use: No Hx Substance Use: No Preferred Language: [place] Communication Ability: Effective [employer] Required: No Beliefs That Will Affect Care: None Current Living Situation: Family Current Living Situation Comment: with son Chet Feels Safe at Home: Yes Assistive Devices: Glasses Review of Systems Review of Systems: Constitutional: See HPI eyes: Denies vision change ENT: Denies ear pain, sore throat, sinus pain Cardiovascular: Denies Chest pain, chest pressure, palpitations, extremity swelling Respiratory: See HPI Gastrointestinal: Denies abdominal pain, nausea, vomiting, constipation. Endorses one episode of diarrhea/incontinence without blood. Genitourinary: Denies dysuria, urinary frequency Musculoskeletal: Denies acute focal weakness, endorses chronic weakness and poor balance. Integumentary:Denies acute rash, endorses some scratches on her legs bilaterally from falls. Neurological: Denies headache, numbness, tingling Physical Exam Physical Exam: General: Alert and oriented to name and place only. No acute distress. Elderly female. HEENT: Atraumatic, normocephalic. Pupils equal and reactive to light and accommodation. No cervical/clavicular lymphadenopathy. Pulm: Diffusely coarse respirations with crackles and at the bases and diffuse end expiratory wheezes. No respiratory distress. Cardiac: RRR, -mrg. Radial pulses intact and symmetrical. Abdominal: Nontender, nondistended, soft. BS present. Extremities: Intact, moving arms and legs symmetrically with 5/5 strength to property technician and ankle dorsiflexion/plantar flexion. Sensation to soft touch in fingertips and toes bilaterally. Results & Data Results & Data ([facility]) Vital Signs (Past 12 Hours) Vital Signs Temp Pulse Resp BP Pulse Ox 11/16/20 14:31 37.3 C 11/16/20 14:30 37.3 C 86 20 115/51 L 97 11/16/20 14:00 85 21 115/63 97 11/16/20 13:45 90 16 97 11/16/20 13:30 20 96 11/16/20 13:14 86 20 96 11/16/20 13:13 86 82 L 11/16/20 13:03 98 H 20 11/16/20 12:54 38.9 C H 101 H 20 99/56 L 84 L Laboratory Results Abnormal lab results 11/16/20 11/16/20 11/16/20 Range/Units 13:14 13:14 13:15 WBC 15.84 H (4.8-10.8) K/uL RDW Std Deviation 48.1 H (36.4-46.3) fL Neut # (Auto) 14.52 H (1.4-6.5) K/uL Lymph # (Auto) 0.55 L (1.2-3.4) K/uL [place] # (Auto) 0.71 H (0.11-0.59) K/uL Immature Gran # (Auto) 0.03 H (0.00-0.02) K/uL VBG pCO2 (38-50) mmHg POC Chloride (101-112) mmol/L POC BUN (7-18) mg/dl BUN 20 H (7-18) mg/dl BUN/Creatinine Ratio 20.9 H (10-20) Glucose 124 H (70-99) mg/dl POC Glucose (other) (70-99) mg/dl Magnesium 1.7 L (1.8-2.4) mg/dl Salicylates < 1.7 L (2.8-20) mg/dl Acetaminophen < 2 L (10-30) ug/ml 11/16/20 11/16/20 Range/Units 13:19 13:30 WBC (4.8-10.8) K/uL RDW Std Deviation (36.4-46.3) fL Neut # (Auto) (1.4-6.5) K/uL Lymph # (Auto) (1.2-3.4) K/uL [place] # (Auto) (0.11-0.59) K/uL Immature Gran # (Auto) (0.00-0.02) K/uL VBG pCO2 51 H (38-50) mmHg POC Chloride 100 L (101-112) mmol/L POC BUN 23 H (7-18) mg/dl BUN (7-18) mg/dl BUN/Creatinine Ratio (10-20) Glucose (70-99) mg/dl POC Glucose (other) 132 H (70-99) mg/dl Magnesium (1.8-2.4) mg/dl Salicylates (2.8-20) mg/dl Acetaminophen (10-30) ug/ml Diagnostic Findings Chest X-Ray 11/16/20 13:00 XR chest 1V portable HISTORY: 75 years-old Female SEPSIS acute sepsis COMPARISON: CTA chest of same day TECHNIQUE: Portable AP view of the chest FINDINGS: Cardiac silhouette is enlarged. Emphysema. No pneumothorax or pleural effusion. Left greater than right bibasilar predominant airspace opacities. Degenerative changes of the shoulders and spine. Loose body of the right subscapularis recess. IMPRESSION: 1. Left greater than right bibasilar airspace opacities suggestive of pneumonia. 2. Cardiomegaly without overt pulmonary edema. 3. Emphysema. ACT 112: Negative or not required by law. The above report was generated using voice recognition software. It may contain grammatical, syntax or spelling errors. Electronically signed by: Stef Pineda M.D. 11/16/2020 2:12 PM Chest CTA 11/16/20 13:02 CT angio chest PE protocol, CT abd pelvis IV con only CT DOSE: 1506.53 mGycm HISTORY: 75 years-old Female with hypoxia ams. Acute hypoxia with altered mental status and acute generalized abdominal pain with nausea. TECHNIQUE: Multiple CTA images of the chest were obtained after the intravenous administration of 118 ml Optiray. Coronal and sagittal MIPS were obtained from the axial data set and were submitted for review. All measurements were obtained according to NASCET criteria. CT abdomen pelvis with IV contrast only also obtained. A dose lowering technique was utilized adhering to the principles of ALARA. COMPARISON: CT abdomen pelvis an MRI lumbar spine 05/03/2020. FINDINGS: CTA: Moderate cardiomegaly. There is no pericardial effusion. Moderate atherosclerosis of the thoracic aorta without aneurysm or dissection. There is patency of the imaged great vessels. The pulmonary artery is opacified to level the subsegmental branches and demonstrates no filling defects to suggest thromboembolic disease. CT CHEST: No thyroid nodule. The esophagus is fluid-filled and mildly distended with mild diffuse wall thickening. No adenopathy. Patchy groundglass and consolidative opacities throughout the left upper lobe, lingula and left greater than right lower lobes and basal right middle lobe. Respiratory motion artifact limits evaluation of the lung parenchyma. Mild emphysema. There are a few scattered calcified pulmonary granulomata. Mild bilateral bronchial wall thickening. Unremarkable soft tissues. Degenerative changes of the shoulders and spine. No acute fracture. CT ABDOMEN/PELVIS: There is no pneumatosis or pneumoperitoneum. The spleen, mildly atrophic pancreas, and liver appear unremarkable. Patency of the hepatic and portal veins. Distended gallbladder. 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 Unremarkable kidneys. No hydronephrosis. Urinary bladder wall thickening with partial distention. Heterogeneous uterus. No adnexal mass lesions. Extensive atherosclerotic plaque of the abdominal aorta without aneurysm. No adenopathy. No bowel obstruction or bowel wall thickening. Moderate fecal retention. Extensive colonic diverticulosis. No CT evidence of acute diverticulitis. Normal appendix. No ascites or mesenteric inflammation. Posterior interbody ava and screw fusion noted at L2-S1. The left L2 pedicle screw partially extends into the L1-L2 disc space. Discectomy changes. The previously noted large disc extrusion at L1-L2 is better characterized on comparison MRI of the lumbar spine . IMPRESSION: 1. Cardiomegaly without pulmonary emboli. 2. Multilobar left greater than right bibasilar predominate alveolar and groundglass opacities suggestive of multifocal pneumonia. 3. Mild emphysema. 4. Fluid-filled distended esophagus with diffuse esophageal wall thickening. 5. No bowel obstruction. Normal appendix. 6. Colonic diverticulosis. 7. Additional findings as above. ACT 112: Negative or not required by law. The above report was generated using voice recognition software. It may contain grammatical, syntax or spelling errors. Electronically signed by: Stef Pineda M.D. 11/16/2020 2:[address] 11/16/20 13:02 CT head/brain wo con CLINICAL HISTORY: 75 years-old Female with ams. Acutely altered mental status TECHNIQUE: Multiple axial CT images of the head were obtained without contrast. A dose lowering technique was utilized adhering to the principles of ALARA. CT DOSE: 582.94 mGycm COMPARISON: Head CT 11/08/2020 FINDINGS: No acute intracranial hemorrhage, midline shift, intracranial mass, hydrocephalus, territorial ischemia or abnormal extra-axial collection. Extensive white matter hypodensities redemonstrated suggestive of chronic microvascular ischemic disease. The calvarium is intact. Mastoid air cells are clear. Polypoid mucosal thickening of the left maxillary sinus is partially imaged. Unremarkable soft tissues. Prior bilateral lens repair. IMPRESSION: No acute intracranial abnormality. ACT 112: Negative or not required by law. The above report was generated using voice recognition software. It may contain grammatical, syntax or spelling errors. Electronically signed by: Stef Pineda M.D. 11/16/2020 1:48 PM Abdomen/Pelvis CT 11/16/20 13:08 CT angio chest PE protocol, CT abd pelvis IV con only CT DOSE: 1506.53 mGycm HISTORY: 75 years-old Female with hypoxia ams. Acute hypoxia with altered mental status and acute generalized abdominal pain with nausea. TECHNIQUE: Multiple CTA images of the chest were obtained after the intravenous administration of 118 ml Optiray. Coronal and sagittal MIPS were obtained from the axial data set and were submitted for review. All measurements were obtained according to NASCET criteria. CT abdomen pelvis with IV contrast only also obtained. A dose lowering technique was utilized adhering to the principles of ALARA. COMPARISON: CT abdomen pelvis an MRI lumbar spine 05/03/2020. FINDINGS: CTA: Moderate cardiomegaly. There is no pericardial effusion. Moderate atherosclerosis of the thoracic aorta without aneurysm or dissection. There is patency of the imaged great vessels. The pulmonary artery is opacified to level the subsegmental branches and demonstrates no filling defects to suggest thromboembolic disease. CT CHEST: No thyroid nodule. The esophagus is fluid-filled and mildly distended with mild diffuse wall thickening. No adenopathy. Patchy groundglass and consolidative opacities throughout the left upper lobe, lingula and left greater than right lower lobes and basal right middle lobe. Respiratory motion artifact limits evaluation of the lung parenchyma. Mild emphysema. There are a few scattered calcified pulmonary granulomata. Mild bilateral bronchial wall thickening. Unremarkable soft tissues. Degenerative changes of the shoulders and spine. No acute fracture. CT ABDOMEN/PELVIS: There is no pneumatosis or pneumoperitoneum. The spleen, mildly atrophic pancreas, and liver appear unremarkable. Patency of the hepatic and portal veins. Distended gallbladder. 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 Unremarkable kidneys. No hydronephrosis. Urinary bladder wall thickening with partial distention. Heterogeneous uterus. No adnexal mass lesions. Extensive atherosclerotic plaque of the abdominal aorta without aneurysm. No adenopathy. No bowel obstruction or bowel wall thickening. Moderate fecal retention. Extensive colonic diverticulosis. No CT evidence of acute diverticulitis. Normal appendix. No ascites or mesenteric inflammation. Posterior interbody ava and screw fusion noted at L2-S1. The left L2 pedicle screw partially extends into the L1-L2 disc space. Discectomy changes. The previously noted large disc extrusion at L1-L2 is better characterized on comparison MRI of the lumbar spine. IMPRESSION: 1. Cardiomegaly without pulmonary emboli. 2. Multilobar left greater than right bibasilar predominate alveolar and groundglass opacities suggestive of multifocal pneumonia. 3. Mild emphysema. 4. Fluid-filled distended esophagus with diffuse esophageal wall thickening. 5. No bowel obstruction. Normal appendix. 6. Colonic diverticulosis. 7. Additional findings as above. ACT 112: Negative or not required by law. The above report was generated using voice recognition software. It may contain grammatical, syntax or spelling errors. Electronically signed by: Stef Pineda M.D. 11/16/2020 2:08 PM Medications Administered Current Medications Home Medications cholecalciferol (vitamin D3) 25 mcg (1,000 unit) tablet (Vitamin D3) 25 mcg PO DAILY 05/03/20 [History Confirmed 11/08/20] cyanocobalamin (vitamin B-12) 1,000 mcg tablet (Vitamin B-12) 1,000 mcg PO DAILY 05/03/20 [History Confirmed 11/08/20] diltiazem HCl 180 mg capsule,extended release 24 hr 180 mg PO DAILY 05/03/20 [History Confirmed 11/08/20] duloxetine 30 mg capsule,delayed release 30 mg PO DAILY 05/03/20 [History Confirmed 11/08/20] duloxetine 60 mg capsule,delayed release 60 mg PO DAILY 05/03/20 [History Confirmed 11/08/20] fenofibrate micronized 134 mg capsule 134 mg PO DAILY 05/03/20 [History Confirmed 11/08/20] gabapentin 600 mg tablet 600 mg PO TID 05/03/20 [History Confirmed 11/08/20] hydrochlorothiazide 25 mg tablet 25 mg PO DAILY 05/03/20 [History Confirmed 11/08/20] lisinopril 40 mg tablet 40 mg PO DAILY 05/03/20 [History Confirmed 11/08/20] metformin 500 mg tablet 1,000 mg PO BID 05/03/20 [History Confirmed 11/08/20] omega-3 fatty acids 1,000 mg PO DAILY 05/03/20 [History Confirmed 11/08/20] ondansetron 4 mg disintegrating tablet 4 mg TRANSLINGUAL Q8H PRN 05/03/20 [History Confirmed 11/08/20] pramipexole 1 mg tablet 1 mg PO HS 05/03/20 [History Confirmed 11/08/20] pravastatin 40 mg tablet 40 mg PO DAILY 05/03/20 [History Confirmed 11/08/20] sucralfate 1 gram tablet 1 g PO DIRECTED PRN 05/03/20 [History Confirmed 11/08/20] tramadol 50 mg tablet 50 mg PO DIRECTED PRN 05/03/20 [History Confirmed 10/01/20] famotidine 20 mg tablet 20 mg PO BID #14 tab 05/06/20 [Rx Confirmed 10/01/20] albuterol sulfate 90 mcg/actuation aerosol inhaler INHALATION 11/08/20 [History] oxycodone-acetaminophen 5 mg-325 mg tablet 1 tab PO Q6H PRN 11/08/20 [History Confirmed 11/08/20] pantoprazole 40 mg tablet,delayed release 40 mg PO DAILY 11/08/20 [History Confirmed 11/08/20] umeclidinium 62.5 mcg-vilanterol 25 mcg/actuation powdr for inhalation (Anoro Ellipta) 62.5 inh INHALATION DAILY 11/08/20 [History Confirmed 11/08/20] acetaminophen 325 mg tablet 650 mg PO Q4H PRN #30 tab 11/10/20 [Rx] nicotine 21 mg/24 hr daily transdermal patch (Nicoderm CQ) 21 mg TRANSDERMAL QAM #28 ea 11/10/20 [Rx] diclofenac sodium 1 % topical gel 2 g TOPICAL QID PRN 11/16/20 [History Confirmed 11/16/20] oxycodone myristate 9 mg capsule sprinkle extended release 12 hr(DON'T CRUSH) (Xtampza ER) 9 mg PO BID PRN 11/16/20 [History Confirmed 11/16/20] Active Medications Vancomycin HCl 1,750 mg/ (Sodium Chloride) 535 mls @ 200 mls/hr IV NOW ONE Stop: 11/16/20 16:56 Last Admin: 11/16/20 14:48 Dose: 200 mls/hr Documented by: Miscellaneous Information (Vancomycin Consult Active) 1 ea N/A UD PRN PRN Reason: Consult Stop: 12/16/20 14:15 Code Status & VTE Plan Code Status DNR. Pt OK with trial of intubation for declining respiratory status. PG Care Time/CCT Total # of Minutes Spent Total Time Spent with Patient: Total time spent is greater than 50% in coordination of care (as documented) at patient's floor/unit and/or counseling patient: 45 Coding Level of Care Code 55685 Initial Inpt Care Lvl 3 Diagnoses AMS (altered mental status) R41.82 Altered mental status type: unspecified Acute respiratory failure with hypoxia J96.01 COPD (chronic obstructive pulmonary disease) J44.9 Severe protein-calorie malnutrition E43 Current smoker F17.200 Hyperlipidemia E78.5 Diabetes mellitus type 2 in obese E11.69; E66.9 GERD (gastroesophageal reflux disease) K21.9 HTN (hypertension), benign I10 Acute lumbar radiculopathy M54.16 SHELDON on CPAP G47.33; Z99.89 Depression F32.9 DVT prophylaxis Z29.9 (1) AMS (altered mental status) Altered mental status type: unspecified Qualified Code(s): R41.82 - Altered mental status, unspecified
[2020-11-16 14:53] LABS: Appearance Urine Clear (Clear); Bacteria Urine Automated Negative (Negative); Bilirubin Urine Negative (Negative); Blood Urine Negative (Negative); Color Urine Dark Yellow; Epithelial Cell Urine Auto >30 /lpf (0-5); Glucose Urine UA Negative (Negative); Ketones Urine Trace (Negative); Leukocyte Esterase Urine Negative (Negative); Nitrite Urine Negative (Negative); Protein Urine 2+ (Negative); RBC Urine Automated 0-4 /hpf (0-4); Urobilinogen Urine Negative (Negative); pH Urine 5.5 (4.5-7.5)
--- NOTE | 2020-11-16 15:41 | Electrocardiogram Report ---
Test Reason : Blood Pressure : / mmHG Vent. Rate : 100 BPM Atrial Rate : 100 BPM P-R Int : 150 ms QRS Dur : 076 ms QT Int : 332 ms P-R-T Axes : 005 -16 057 degrees QTc Int : 428 ms Sinus rhythm with occasional Premature ventricular complexes Poor R wave progression, consider anterior MD vs. lead placement vs. LVH Abnormal ECG When compared with ECG of 07-NOV-2020 22:22, Premature ventricular complexes are now Present Confirmed by Joss King ([id number]) on 11/16/2020 3:41:20 PM Referred By: REFERRED SELF Confirmed By:Joss King
[2020-11-16] MEDS ORDERED: SODIUM CHLORIDE 0.9% 1000ML 1,000 ML IV ONE (16:06)
[2020-11-16] MEDS ORDERED: traMADol HCL 50 MG TABLET PO PRN (16:48)
[2020-11-16] MEDS ORDERED: ACETAMINOPHEN 325 MG TAB PO PRN (16:48)
[2020-11-16] MEDS ORDERED: INSULIN ASPART 100 UNITS/ML 3 ML PEN SC SCH (16:48)
[2020-11-16] MEDS ORDERED: CARBOHYDRATES FOR HYPOGLYCEMIA PO PRN (16:48)
[2020-11-16] MEDS ORDERED: GLUCOSE 10 TABS/TUBE PO PRN (16:48)
[2020-11-16] MEDS ORDERED: GLUCOSE 40% GEL 15 GM TUBE PO PRN (16:48)
[2020-11-16] MEDS ORDERED: GLUCAGON FOR INJ 1 MG VIAL SQ PRN (16:48)
[2020-11-16] MEDS ORDERED: ALBUT/IPRATROP 3MG/0.5MG NEB 3 ML VIAL NEB PRN (16:48)
[2020-11-16] MEDS ORDERED: DICLOFENAC SOD 1% GEL 100 GM TUBE EXT PRN (16:48)
[2020-11-16] MEDS ORDERED: DEXTROSE 50% 50 ML SYRINGE IV PRN (16:48)
[2020-11-16] MEDS ORDERED: MoRPHine SULFATE 2 MG/ML CARP IV PRN ×2 (17:24→17:29)
[2020-11-16] MEDS: DULoxetine HCL 60 MG CAP PO SCH (17:28)
[2020-11-16] MEDS: DULoxetine HCL 30 MG CAP PO SCH (17:28)
[2020-11-16] MEDS ORDERED: AZITHROMYCIN 500 MG in DEXTROSE 5% 250 ML IV ONE (18:00)
[2020-11-16] MEDS: NSS + 20MEQ KCL 20 MEQ/1,000 ML BAG IV SCH (18:05)
[2020-11-16] MEDS: NICOTINE 21 MG/24 HR TDSY TD SCH (18:05)
[2020-11-16] MEDS: UMECLIDINIUM/VILANTEROL 62.5/25MCG 7 PUFFS/INHALER INH SCH (18:31)
[2020-11-16] MEDS: GABAPENTIN 600 MG TAB PO SCH (19:16)
[2020-11-16] MEDS: FAMOTIDINE 20 MG TAB PO SCH (19:16)
[2020-11-16] MEDS ORDERED: Nursing to Pharmacy Communication SCH (19:45)
[2020-11-16] MEDS ORDERED: CEFEPIME 2,000 MG in SYRINGE 0 ML IV SCH (20:00)
[2020-11-16] MEDS: INSULIN GLARGINE SOLOSTAR 100 UNITS/ML 3 ML PEN SC SCH (20:38)
[2020-11-16] MEDS ORDERED: ACETAMINOPHEN 1,000 MG/100 ML VIAL IV PRN (21:00)
[2020-11-17] MEDS: INSULIN ASPART 100 UNITS/ML 3 ML PEN SC SCH ×5 (00:54→20:39)
[2020-11-17] MEDS: CEFEPIME 2,000 MG in SYRINGE 0 ML IV SCH ×2 (02:16→14:11)
[2020-11-17] MEDS: NSS + 20MEQ KCL 20 MEQ/1,000 ML BAG IV SCH ×2 (04:16→14:11)
[2020-11-17 07:51] LABS: Basophils # (auto) 0.02 K/uL (0-0.2); Basophils % (auto) 0.1 %; Eosinophils # (auto) 0.13 K/uL (0-0.5); Eosinophils % (auto) 0.9 %; Hematocrit (blood only) 39.4 % (37-47); Hemoglobin 12.7 g/dL (12.0-16.0); Immature Granulocytes # (auto) 0.05 K/uL (0.00-0.02); Immature Granulocytes % (auto) 0.3 %; Lymphocytes # (auto) 1.66 K/uL (1.2-3.4); Lymphocytes % (auto) 10.9 %; Mean Corpuscular Hemoglobin 28.9 pg (25-34); Mean Corpuscular Hgb Conc 32.2 g/dL (32-36); Mean Corpuscular Volume 89.5 fL (80-100); Mean Platelet Volume 10.1 fL (7.4-10.4); Monocytes # (auto) 0.53 K/uL (0.11-0.59); Monocytes % (auto) 3.5 %; Neutrophils # (auto) 12.77 K/uL (1.4-6.5); Neutrophils % (auto) 84.3 %; Platelet Count 281 K/uL (130-400); RDW Coefficient of Variation 14.7 % (11.5-14.5); RDW Standard Deviation 47.9 fL (36.4-46.3); White Blood Count 15.16 K/uL (4.8-10.8)
[2020-11-17] MEDS: UMECLIDINIUM/VILANTEROL 62.5/25MCG 7 PUFFS/INHALER INH SCH (08:03)
[2020-11-17] MEDS: NICOTINE 21 MG/24 HR TDSY TD SCH (08:03)
[2020-11-17] MEDS: ENOXAPARIN INJ 40 MG/0.4 ML SYR SQ SCH (08:04)
[2020-11-17] MEDS: AZITHROMYCIN 250 MG in DEXTROSE 5% 250 ML IV SCH (08:06)
[2020-11-17 08:18] LABS: Calcium 8.7 mg/dl (8.5-10.1); Creatinine Clr Calc Pharmacy 70.5 ml/min; Est GFR (Non-African American) 84.6 ml/min; Potassium 4.3 mmol/L (3.5-5.1)
[2020-11-17] MEDS ORDERED: PANTOprazole 40 MG TAB PO SCH (09:00)
--- NOTE | 2020-11-17 09:13 | Pharmacy Report ---
Pharmacy Abx Initial Consult - Date of Service November 17, 2020 - Pharmacy Dosing Scope Date of Consult: Consultation requested by: Dr. Arellano Pharmacy is consulted to initiate vancomycin IV dosing therapy, order appropriate labs and adjust drug dose/frequency. - Subjective The patient is a 75 year old F admitted on 11/16/20 15:08. - Objective Height: 5 ft 4 in Weight: 79 kg Vital Signs (Past 12hrs): Vital Signs Temp Pulse Pulse Resp BP BP Pulse Ox 11/17/20 07:24 36.8 C 73 20 125/72 93 11/17/20 07:15 79 11/17/20 04:00 36.9 C 74 18 131/71 92 11/16/20 23:59 72 11/16/20 23:00 37.2 C 73 18 105/51 L 93 Lab Results (24hrs): Laboratory Tests (24 Hours) 11/17/20 11/17/20 11/16/20 07:30 07:30 13:14 WBC 15.16 H Neut # (Auto) 12.77 H Creatinine 0.69 Est Cr Clr Drug Dosing 70.5 Procalcitonin 0.16 11/16/20 11/16/20 13:14 13:14 WBC 15.84 H Neut # (Auto) 14.52 H Creatinine 0.96 Est Cr Clr Drug Dosing Not Reportable Procalcitonin Micro Results: 11/16/20 13:14 Aerobic Blood Culture - Pending Blood Anaerobic Blood Culture - Pending 11/16/20 Unknown Aerobic Blood Culture - Pending Blood Anaerobic Blood Culture - Pending - Risk Factors for Resistance * Hospitalization for 48 hours or more within the past 90 days - Assessment & Plan Assessment 75 year old F admitted with altered mental status. PMHx significant for COPD, to bacco use, type 2 diabetes, malnutrition. Presenting with low blood pressure, fever. CT suggestive of possible pneumonia. Cefepime, azithromycin, vancomycin added for abx coverage. MRSA nasal swab ordered. Plan Vancomycin IV * Received loading dose of vancomycin 1750 mg x 1 yesterday afternoon. Pharmacy consulted for continued vancomycin use. Estimated level closer to ~10 mcg/ml this Am - will start maintenance dose of vancomycin 1250 mg iv q 12 hrs based upon vancomycin AUC nomogram dosing * Plan to order trough if continued >48 hrs or sooner if renal function changes * Blood cultures are pending Pharmacy will continue to follow and will adjust dose/frequency as necessary. Thank you.
--- NOTE | 2020-11-17 09:44 | Gastrointestinal Consultation ---
Date of Consultation November 17, 2020 Assessment & Plan (1) Abnormal CT scan, esophagus: -Would recommend continued treatment of pneumonia and can consider EGD once respiratory status is improved closer to baseline. -Protonix 40 mg BID. Supervising Physician Co-Signing Physician Notes I personally evaluated the patient and agree with the findings as documented by MIHAI Javier Exam: abd: soft, nt, nd History of Present Illness Reason for Consultation: fluid-filled esophagitis Attending Physician: Marcelino Brady MD History of Present Illness Patient is a 75-yo female with PMH of COPD, tobacco use, HLD, DM2, GERD, HTN, depression, severe protein-calorie malnutrition, and hearing loss. She reports that she developed an abrupt onset of chills and fever. Patient reportedly had some confusion. She has a chronic cough which she notes is now productive this morning. She has smoked 1.5 PPD for decades. Upon presentation to the ED, she was noted to be febrile with a temp of 38.9. She was hypotensive with a HR of 101. She is currently on 4L O2. WBC count was 15,[address] scan showed a multifocal pneumonia. She notes a history of dysphagia, nausea, & vomiting. She had an EGD in April [address] Zambrano that showed milton esophagitis. CT from this admission showed a fluid-filled distal esophagus with distal wall thickening. Due to her history of lumbar spine issues, she has been on chronic narcotic therapy at home. Allergies Allergy/AdvReac Type Severity Reaction Status Date / Time atorvastatin [From Lipitor] Allergy Intermediate Skin Rash Unverified 11/16/20 14:38 No Known Drug Allergies Allergy Unknown Verified 10/01/20 10:01 morphine AdvReac Intermediate Nausea Unverified 11/16/20 14:38 Home Medications Medication Instructions Recorded Confirmed Type cholecalciferol (vitamin D3) 25 25 mcg PO DAILY 05/03/20 11/16/20 History mcg (1,000 unit) tablet (Vitamin D3) cyanocobalamin (vitamin B-12) 1,000 mcg PO DAILY 05/03/20 11/16/20 History 1,000 mcg tablet (Vitamin B-12) diltiazem HCl 180 mg 180 mg PO DAILY 05/03/20 11/16/20 History capsule,extended release 24 hr duloxetine 30 mg capsule,delayed 30 mg PO DAILY 05/03/20 11/16/20 History release duloxetine 60 mg capsule,delayed 60 mg PO DAILY 05/03/20 11/16/20 History release fenofibrate micronized 134 mg 134 mg PO DAILY 05/03/20 11/16/20 History capsule gabapentin 600 mg tablet 600 mg PO TID 05/03/20 11/16/20 History hydrochlorothiazide 25 mg tablet 25 mg PO DAILY 05/03/20 11/16/20 History lisinopril 40 mg tablet 40 mg PO DAILY 05/03/20 11/16/20 History metformin 500 mg tablet 1,000 mg PO BID 05/03/20 11/16/20 History omega-3 fatty acids 1,000 mg PO DAILY 05/03/20 11/16/20 History ondansetron 4 mg disintegrating 4 mg TRANSLINGUAL Q8H PRN 05/03/20 11/16/20 History tablet pramipexole 1 mg tablet 1 mg PO HS 05/03/20 11/16/20 History pravastatin 40 mg tablet 40 mg PO DAILY 05/03/20 11/16/20 History sucralfate 1 gram tablet 1 g PO ACHS PRN 05/03/20 11/16/20 History tramadol 50 mg tablet 50 mg PO DIRECTED PRN 05/03/20 11/16/20 History famotidine 20 mg tablet 20 mg PO BID #14 tab 05/06/20 11/16/20 Rx albuterol sulfate 90 mcg/actuation 2 puff INHALATION Q3H PRN 11/08/20 11/16/20 History aerosol inhaler oxycodone-acetaminophen 5 mg-325 1 tab PO Q6H PRN 11/08/20 11/16/20 History mg tablet (Percocet) pantoprazole 40 mg tablet,delayed 40 mg PO DAILY 11/08/20 11/08/20 History release umeclidinium 62.5 mcg-vilanterol 62.5 inh INHALATION DAILY 11/08/20 11/16/20 History 25 mcg/actuation powdr for inhalation (Anoro Ellipta) acetaminophen 325 mg tablet 650 mg PO Q4H PRN #30 tab 11/10/20 11/16/20 Rx nicotine 21 mg/24 hr daily 21 mg TRANSDERMAL QAM #28 ea 11/10/20 11/16/20 Rx transdermal patch (Nicoderm CQ) diclofenac sodium 1 % topical gel 2 g TOPICAL QID PRN 11/16/20 11/16/20 History oxycodone myristate 9 mg capsule 9 mg PO BID PRN 11/16/20 11/16/20 History sprinkle extended release 12 hr(DON'T CRUSH) (Xtampza ER) Patient History Medical History AAA (abdominal aortic aneurysm) Acute lumbar radiculopathy Chronic low back pain Current smoker Depression Diabetes mellitus type 2 in obese GERD (gastroesophageal reflux disease) HTN (hypertension), benign Hyperlipidemia Obesity Peptic ulcer disease Restless leg syndrome Vitamin B12 deficiency Vitamin D deficiency Surgical History History of bilateral tubal ligation History of carpal tunnel release Left History of lumbar fusion History of repair of rotator cuff Right Family History Father Heart disease Brother Kidney disease Mother Gastric cancer Family/Other Testicular cancer Social History Smoking Status: Current every day smoker Tobacco Type: Cigarettes Age Started Using Tobacco: 11; Years Smoked: 63; Cigarettes Per Day: 20; Second Hand Exposure: Yes; Do You Dip or Chew Tobacco: No; Tobacco Cessation Education Requested by Patient: No Hx Alcohol Use: No Hx Substance Use: No Preferred Language: [place] Communication Ability: Effective Receptionist Secretary Required: No Beliefs That Will Affect Care: None marital status: / Current Living Situation: Family Current Living Situation Comment: home with son Other Information That Helps Us Care for You: No Feels Safe at Home: Yes Safety Concerns: Feels Safe At This Time Assistive Devices: None Review of Systems Constitutional: no fever and no chills Respiratory: + cough, + dyspnea and + sputum production Cardiovascular: no chest pain Gastrointestinal: no abdominal pain Psychiatric: no problem reported Physical Exam Constitutional: WD/WN, vitals as above Respiratory: + labored breathing and + cough Auscultation: + rales Cardiovascular: Rate/Rhythm: regular rate Gastrointestinal (Abdomen): normal bowel sounds, soft, nontender, no hepatosplenomegaly Musculoskeletal: Head/Neck/Chest: normocephalic Psychiatric: Orientation: alert and oriented x 3 Results & Data ([facility]) Vital Signs (Past 12 Hours) Vital Signs Temp Pulse Pulse Resp BP BP Pulse Ox 11/17/20 07:24 36.8 C 73 20 125/72 93 11/17/20 07:15 79 11/17/20 04:00 36.9 C 74 18 131/71 92 11/16/20 23:59 72 11/16/20 23:00 37.2 C 73 18 105/51 L 93 PG Care Time/CCT Total # of Minutes Spent Total Time Spent with Patient: Total time spent is greater than 50% in coordination of care (as documented) at patient's floor/unit and/or counseling patient: Coding Level of Care Code 01878 Initial Inpt Care Lvl [address] scan, esophagus R93.3
[2020-11-17] MEDS ORDERED: VANCOMYCIN HCL 1,250 MG in SODIUM CHLORIDE 0.9% 250 ML IV SCH (10:00)
[2020-11-17] MEDS: PRAVASTATIN SOD 40 MG TAB PO SCH (11:02)
[2020-11-17] MEDS: DULoxetine HCL 60 MG CAP PO SCH (11:02)
[2020-11-17] MEDS: DULoxetine HCL 30 MG CAP PO SCH (11:02)
[2020-11-17] MEDS: FAMOTIDINE 20 MG TAB PO SCH ×2 (11:02→20:38)
[2020-11-17] MEDS: FENOFIBRATE NANOCRYSTALLIZED 145 MG TABLET PO SCH (11:02)
[2020-11-17] MEDS: GABAPENTIN 600 MG TAB PO SCH ×3 (11:02→20:37)
[2020-11-17] MEDS: INSULIN GLARGINE SOLOSTAR 100 UNITS/ML 3 ML PEN SC SCH ×2 (11:03→20:38)
[2020-11-17] MEDS ORDERED: Nursing to Pharmacy Communication SCH (16:45)
--- NOTE | 2020-11-17 18:00 | Hospitalist Progress Note ---
Date of Service November 17, 2020 Assessment & Plan (1) Acute respiratory failure with hypoxia: Plan: Acute hypoxic respiratory failure 2/2 multifocal pneumonia. MRSA nares negative Continue cefepime/azithromycin (2) Regurgitation of food: Plan: Reports several months of regurgitating many foods/drinks she attempts to eat. - GI consulted -> Plan for EGD in future - PPI PO BID - Will order barium swallow (3) COPD (chronic obstructive pulmonary disease): Plan: COPD with history of tobacco use. No PFTs available for review. Continue Anoro Ellipta daily DuoNebs every 4 hours as needed Pulmonary toilet (4) Diabetes mellitus type 2 in obese: Plan: A1c was 8.6% in 10/2020. Hold home metformin, hold home Victoza Continue Lantus & sliding scale insulin (5) Current smoker: Plan: - Nicotine 21mcg patch (6) Hyperlipidemia: Plan: Continue home fenofibrate & pravastatin (7) GERD (gastroesophageal reflux disease): Plan: As above with plan. - Continue famotidine & PPI (8) HTN (hypertension), benign: Plan: BP today is 150/90. - Held home hydrochlorothiazide, lisinopril, and diltiazem for initial hypotension. Possibly due to hypovolemia as the patient is regurgitatin. - Restart home lisinopril initially (9) Acute lumbar radiculopathy: Plan: - Continue voltarin - Continue home oxycodone, tramadol (10) SHELDON on CPAP: Plan: CPAP per protocol (11) Depression: Plan: No overt SI/HI today. - Continue home duloxetine (12) DVT prophylaxis: Plan: DVT prophylaxis: Heparin 5000 BID CODE STATUS: DNR. Pt OK with trial of intubation for declining respiratory status. Admission and Anticipated Discharge Date Admission Date: November 16, 2020 Subjective Feels slightly less shortness of breath. Reports regurgitating lots of food and drink. No nausea beforehand. No coffee ground emesis, no blood. Physical Exam Constitutional: WD/WN, vitals as above Eyes: EOM intact bilaterally; no conjunctival abnormality ENMT: external ear and nose normal, oropharynx normal Neck: trachea midline, no thyromegaly normal visual inspection Respiratory: normal respiratory effort, lungs clear to auscultation no respiratory distress Cardiovascular: RRR, no murmur, no edema Gastrointestinal (Abdomen): Inspection/Auscultation: abdomen normal to inspection; abdomen not distended Musculoskeletal: no cyanosis or clubbing, extremities motor strength 5/5 Skin: no rashes, warm and dry Neurologic: moves all extremities and awake Psychiatric: Orientation: alert, oriented to person and cooperative Results & Data Results & Data ([facility]) Vital Signs (Past 12 Hours) Vital Signs Temp Pulse Pulse Resp BP Pulse Ox 11/17/20 15:47 36.6 C 75 20 148/87 H 94 11/17/20 15:31 74 11/17/20 11:27 37.0 C 77 20 138/85 94 11/17/20 07:24 36.8 C 73 20 125/72 93 11/17/20 07:15 79 PG Care Time/CCT Total # of Minutes Spent Total Time Spent with Patient: Total time spent is greater than 50% in coordination of care (as documented) at patient's floor/unit and/or counseling patient: Coding Level of Care Code 36532 Subseq Hosp Care Lvl 3 Diagnoses Acute respiratory failure with hypoxia J96.01 COPD (chronic obstructive pulmonary disease) J44.9 Current smoker F17.200 Hyperlipidemia E78.5 Diabetes mellitus type 2 in obese E11.69; E66.9 GERD (gastroesophageal reflux disease) K21.9 HTN (hypertension), benign I10 Acute lumbar radiculopathy M54.16 SHELDON on CPAP G47.33; Z99.89 Depression F32.9 DVT prophylaxis Z29.9 Regurgitation of food R11.10
[2020-11-17] MEDS: PANTOprazole 40 MG TAB PO SCH (20:58)
[2020-11-17] MEDS: oxyCODONE/ACETAMINOPHEN 5mg/325mg TAB PO PRN (21:30)
[2020-11-18] MEDS: CEFEPIME 2,000 MG in SYRINGE 0 ML IV SCH ×2 (02:04→14:03)
[2020-11-18] MEDS: INSULIN ASPART 100 UNITS/ML 3 ML PEN SC SCH ×4 (07:39→20:50)
[2020-11-18] MEDS: INSULIN GLARGINE SOLOSTAR 100 UNITS/ML 3 ML PEN SC SCH ×2 (07:48→20:51)
[2020-11-18] MEDS: FENOFIBRATE NANOCRYSTALLIZED 145 MG TABLET PO SCH (09:04)
[2020-11-18] MEDS: FAMOTIDINE 20 MG TAB PO SCH ×2 (09:04→20:52)
[2020-11-18] MEDS: lisinopril 20 MG TAB PO SCH (09:05)
[2020-11-18] MEDS: DULoxetine HCL 60 MG CAP PO SCH (09:05)
[2020-11-18] MEDS: PRAVASTATIN SOD 40 MG TAB PO SCH (09:05)
[2020-11-18] MEDS: DULoxetine HCL 30 MG CAP PO SCH (09:05)
[2020-11-18] MEDS: GABAPENTIN 600 MG TAB PO SCH ×3 (09:05→20:52)
[2020-11-18] MEDS: NICOTINE 21 MG/24 HR TDSY TD SCH (09:06)
[2020-11-18] MEDS: ENOXAPARIN INJ 40 MG/0.4 ML SYR SQ SCH (09:06)
[2020-11-18] MEDS: UMECLIDINIUM/VILANTEROL 62.5/25MCG 7 PUFFS/INHALER INH SCH (09:06)
[2020-11-18] MEDS: PANTOprazole 40 MG TAB PO SCH ×2 (09:08→20:52)
[2020-11-18] MEDS: AZITHROMYCIN 250 MG in DEXTROSE 5% 250 ML IV SCH (09:10)
[2020-11-18 09:32] LABS: Hematocrit (blood only) 39.5 % (37-47); Hemoglobin 13.1 g/dL (12.0-16.0); Mean Corpuscular Hgb Conc 33.2 g/dL (32-36); Mean Corpuscular Volume 87.4 fL (80-100); Platelet Count 299 K/uL (130-400); RDW Standard Deviation 44.9 fL (36.4-46.3); Red Blood Count 4.52 M/uL (4.2-5.4); White Blood Count 6.73 K/uL (4.8-10.8)
[2020-11-18 09:58] LABS: BUN Creatinine Ratio 18.6 (10-20); Calcium 9.8 mg/dl (8.5-10.1); Est GFR (African American) 99.5 ml/min; Est GFR (Non-African American) 85.8 ml/min; Magnesium 1.8 mg/dl (1.8-2.4)
--- NOTE | 2020-11-18 10:14 | Gastroenterology Progress Note ---
Date of Service November 18, 2020 Assessment & Plan (1) Abnormal CT scan, esophagus: Plan: -Protonix 40 mg BID -Proceed with barium swallow as ordered by primary team -Can consider EGD as an outpatient once pneumonia resolves. Admission and Anticipated Discharge Date Admission Date: November 16, 2020 Supervising Physician Co-Signing Physician Notes I personally evaluated the patient and agree with the findings as documented by Yulissa Stoll, PAC Exam: abd: soft, nt, nd Subjective Patient is a 75 yo female with an abnormal CT of the esophagus. She is now on room air. She denies any new issues. She is reportedly scheduled for a barium swallow today. Review of Systems Constitutional: no fever and no chills Respiratory: + cough Cardiovascular: no chest pain Physical Exam Constitutional: no acute distress Respiratory: normal respiratory effort and + cough Cardiovascular: Rate/Rhythm: regular rate Gastrointestinal (Abdomen): normal bowel sounds, soft, nontender, no hepatosplenomegaly Psychiatric: Orientation: alert and oriented x 3 Results & Data Results & Data ([facility]) Vital Signs (Past 12 Hours) Vital Signs Temp Pulse Pulse Resp BP BP Pulse Ox 11/18/20 08:00 63 11/18/20 07:16 63 11/18/20 07:06 36.5 C 74 18 147/75 H 91 11/18/20 03:59 36.8 C 69 18 164/78 H 94 11/17/20 23:59 70 11/17/20 23:36 36.9 C 69 18 124/64 91 PG Care Time/CCT Total # of Minutes Spent Total Time Spent with Patient: Total time spent is greater than 50% in coordination of care (as documented) at patient's floor/unit and/or counseling patient: Coding Level of Care Code 10470 Subseq Hosp Care Lvl [address] scan, esophagus R93.3
--- NOTE | 2020-11-18 11:53 | Fluoroscopy Report ---
DOUBLE CONTRAST BARIUM ESOPHAGRAM CLINICAL HISTORY: Regurgitation. COMPARISON STUDY: No priors. TECHNIQUE: A standard air contrast barium esophagram is performed. Multiple spot images of the esopha evan are acquired both upright and prone. FINDINGS: The patient swallowed barium without difficulty. The barium pill became lodged in the dista l esophagus. There is moderate to severe esophageal dysmotility. The mucosal pattern is normal. There is no evidence of intrinsic or extrinsic mass lesion. No aspiration was seen. The gastroesophageal junction distended normally. No gastroesophageal reflux could be elicited by having the patient perfo rm the Valsalva maneuver. Fluoroscopy time: 1.9 minutes. Fluoroscopic images: 30 spot images and 2 cine loops IMPRESSION: 1. Moderate to severe esophageal dysmotility. 2. The barium pill became lodged in the distal esophagus. ACT 112: Negative or not required by law. Electronically signed by: Sridhar Ramos M.D. 11/18/2020 11:52 AM
[2020-11-18] MEDS: oxyCODONE/ACETAMINOPHEN 5mg/325mg TAB PO PRN ×2 (14:11→20:54)
--- NOTE | 2020-11-18 17:58 | Hospitalist Progress Note ---
Date of Service November 18, 2020 Assessment & Plan (1) Acute respiratory failure with hypoxia: Plan: Acute hypoxic respiratory failure 2/2 multifocal pneumonia. Likely due to aspiration as she reports that she frequently vomits and even woke up vomiting a few nights prior to admission. MRSA nares negative Continue cefepime/azithromycin => Switch to Augmentin on discharge. (2) Regurgitation of food: Plan: Reports several months of regurgitating many foods/drinks she attempts to eat. - Barium swallow on 11/18 showed severe esophageal dysmotility. Did show normal dilation of GE junction, so achalasia a bit less likely. - GI consulted -> Plan for further outpatient testing including possible esophageal manometry. - Continue PPI PO BID (3) COPD (chronic obstructive pulmonary disease): Plan: COPD with history of tobacco use. No PFTs available for review. Continue Anoro Ellipta daily DuoNebs every 4 hours as needed Pulmonary toilet (4) Diabetes mellitus type 2 in obese: Plan: A1c was 8.6% in 10/2020. Hold home metformin, hold home Victoza Continue Lantus & sliding scale insulin - BS have been 120 - 140. (5) Current smoker: Plan: - Nicotine 21mcg patch (6) Hyperlipidemia: Plan: Continue home fenofibrate & pravastatin (7) GERD (gastroesophageal reflux disease): Plan: As above with plan. - Continue famotidine & PPI (8) HTN (hypertension), benign: Plan: BP today is 145/85. - Held home hydrochlorothiazide, lisinopril, and diltiazem for initial hypotension. Possibly due to hypovolemia as the patient is regurgitation. - Restart home lisinopril initially. Stable today so far. (9) Acute lumbar radiculopathy: Plan: - Continue voltarin - Continue home oxycodone, tramadol (10) SHELDON on CPAP: Plan: CPAP per protocol (11) Depression: Plan: No overt SI/HI today. - Continue home duloxetine (12) DVT prophylaxis: Plan: DVT prophylaxis: Heparin 5000 BID CODE STATUS: DNR. Pt OK with trial of intubation for declining respiratory status. Admission and Anticipated Discharge Date Admission Date: November 16, 2020 Subjective Feeling well today. Did not have regurgitation yesterday with food. Reports no fevers/chills, chest pain, shortness of breath, abdominal pain, nausea, or vomiting. Physical Exam Constitutional: WD/WN, vitals as above Eyes: EOM intact bilaterally; no conjunctival abnormality ENMT: external ear and nose normal, oropharynx normal Neck: trachea midline, no thyromegaly normal visual inspection Respiratory: normal respiratory effort, lungs clear to auscultation no respiratory distress Cardiovascular: RRR, no murmur, no edema Gastrointestinal (Abdomen): Inspection/Auscultation: abdomen normal to inspection; abdomen not distended Musculoskeletal: no cyanosis or clubbing, extremities motor strength 5/5 Skin: no rashes, warm and dry Neurologic: moves all extremities and awake Psychiatric: Orientation: alert, oriented to person and cooperative Results & Data Results & Data ([facility]) Vital Signs (Past 12 Hours) Vital Signs Temp Pulse Pulse Resp BP BP Pulse Ox 11/18/20 15:34 36.4 C L 77 20 145/85 H 94 11/18/20 15:01 79 11/18/20 12:35 36.2 C L 80 20 162/82 H 95 11/18/20 08:00 63 11/18/20 07:16 63 11/18/20 07:06 36.5 C 74 18 147/75 H 91 PG Care Time/CCT Total # of Minutes Spent Total Time Spent with Patient: Total time spent is greater than 50% in coordination of care (as documented) at patient's floor/unit and/or counseling patient: Coding Level of Care Code 11885 Subseq Hosp Care Lvl 3 Diagnoses Acute respiratory failure with hypoxia J96.01 Regurgitation of food R11.10 COPD (chronic obstructive pulmonary disease) J44.9 Diabetes mellitus type 2 in obese E11.69; E66.9 Current smoker F17.200 Hyperlipidemia E78.5 GERD (gastroesophageal reflux disease) K21.9 HTN (hypertension), benign I10 Acute lumbar radiculopathy M54.16 SHELDON on CPAP G47.33; Z99.89 Depression F32.9 DVT prophylaxis Z29.9
[2020-11-19] MEDS: CEFEPIME 2,000 MG in SYRINGE 0 ML IV SCH (01:35)
[2020-11-19] MEDS: oxyCODONE/ACETAMINOPHEN 5mg/325mg TAB PO PRN (06:25)
[2020-11-19] MEDS: INSULIN ASPART 100 UNITS/ML 3 ML PEN SC SCH ×2 (08:18→12:02)
[2020-11-19] MEDS: DULoxetine HCL 60 MG CAP PO SCH (08:19)
[2020-11-19] MEDS: lisinopril 20 MG TAB PO SCH (08:19)
[2020-11-19] MEDS: PANTOprazole 40 MG TAB PO SCH (08:19)
[2020-11-19] MEDS: NICOTINE 21 MG/24 HR TDSY TD SCH (08:19)
[2020-11-19] MEDS: PRAVASTATIN SOD 40 MG TAB PO SCH (08:19)
[2020-11-19] MEDS: FAMOTIDINE 20 MG TAB PO SCH (08:19)
[2020-11-19] MEDS: FENOFIBRATE NANOCRYSTALLIZED 145 MG TABLET PO SCH (08:19)
[2020-11-19] MEDS: UMECLIDINIUM/VILANTEROL 62.5/25MCG 7 PUFFS/INHALER INH SCH (08:20)
[2020-11-19] MEDS: GABAPENTIN 600 MG TAB PO SCH (08:20)
[2020-11-19] MEDS: DULoxetine HCL 30 MG CAP PO SCH (08:20)
[2020-11-19] MEDS: ENOXAPARIN INJ 40 MG/0.4 ML SYR SQ SCH (08:21)
[2020-11-19] MEDS: INSULIN GLARGINE SOLOSTAR 100 UNITS/ML 3 ML PEN SC SCH (08:24)
[2020-11-19] MEDS: AZITHROMYCIN 250 MG in DEXTROSE 5% 250 ML IV SCH (08:24)
[2020-11-19 08:33] LABS: Hematocrit (blood only) 42.2 % (37-47); Hemoglobin 14.2 g/dL (12.0-16.0); Mean Corpuscular Hemoglobin 29.3 pg (25-34); Mean Corpuscular Hgb Conc 33.6 g/dL (32-36); Mean Platelet Volume 10.3 fL (7.4-10.4); Platelet Count 338 K/uL (130-400); RDW Coefficient of Variation 13.9 % (11.5-14.5); RDW Standard Deviation 44.5 fL (36.4-46.3); Red Blood Count 4.85 M/uL (4.2-5.4); White Blood Count 5.46 K/uL (4.8-10.8)
[2020-11-19 09:21] LABS: Calcium 9.7 mg/dl (8.5-10.1); Creatinine Clr Calc Pharmacy 61.9 ml/min; Est GFR (African American) 86.9 ml/min; Magnesium 2.1 mg/dl (1.8-2.4); Potassium 3.9 mmol/L (3.5-5.1)
--- NOTE | 2020-11-19 18:21 | Discharge Summary ---
Date of Service November 19, 2020 Admission HPI Per Admitting Provider Silvia is a 75-year-old female with a past medical history of COPD, tobacco use, hyperlipidemia, type 2 diabetes mellitus, GERD, hypertension, depression, severe proteincalorie malnutrition, and sensorineural hearing loss who presents with [] and was found to be febrile to 38.9 on admission with a low blood pressure, pulse of 101, and leukocytosis to 15.[address] consistent with acute multifocal pneumonia Silvia seen at the bedside with her daughter, Silvia. The patient reports that she was in her otherwise normal well state of health yesterday, and "even went out and got my haircut ". This morning she developed chills, fever, and felt like she was "burning up". Her daughter reported that she talk to her on the phone and noted her mother seemed confused and was hallucinating which prompted them to bring her to the emergency department. Silvia denies shortness of breath or chest pain, endorses one episode of bowel incontinence which is unusual for her. She endorses chronic cough productive for phlegm which has not changed recently. She reports 1.5 pack/day tobacco use for many decades and is not interested in quitting. She also has a history of sleep apnea on CPAP, although has had difficulty getting her CPAP covered with insurance. 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 She has a history of COPD on Anoro Ellipta and albuterol as needed. She denies increased wheezing, although notes cough with some wheezing at baseline. Denies nausea/vomiting at time of assessment. Reports her appetite has been "okay "and unchanged. She took her oxycodone this morning, otherwise has not taken any of her daily medications. Denies alcohol/recreational drug intake. Recent hospitalization for polypharmacy, notes several med changes which have been updated in the EMR. She notes her spinal specialist who she sees for low back pain with lumbar hardware placed her back on oxycodone due to worsening and chronic pain.Reports several falls at home in the last month due to poor balance, and pain, although denies focal weakness. She is vaccinated against Covid No sick contacts at home. No recent Covid contacts for her knowledge. Medical History: Reviewed Medications: Reviewed Surgical History: Reviewed Allergies: Reviewed Social History: Endorses 1.5 pack/day tobacco use. Denies alcohol, recreational drug use. Lives in a home with her son and brother which has stairs. Is likely moving into her daughter Silvia's home which is a little only on the first floor. Has help at home. Code Status:Discussed with patient and her daughter at bedside. DNR, but okay with a trial of intubation for declining respiratory status if medically indicated. Principal Diagnosis Aspiration pneumonia Esophageal dysmotility Discharge Exam Constitutional WD/WN, vitals as above Eyes EOM intact bilaterally; no conjunctival abnormality ENMT external ear and nose normal, oropharynx normal Neck trachea midline, no thyromegaly normal visual inspection Respiratory normal respiratory effort, lungs clear to auscultation no respiratory distress Cardiovascular RRR, no murmur, no edema Gastrointestinal (Abdomen) Inspection/Auscultation: abdomen normal to inspection; abdomen not distended Musculoskeletal no cyanosis or clubbing, extremities motor strength 5/5 Skin no rashes, warm and dry Neurologic moves all extremities and awake Psychiatric Orientation: alert, oriented to person and cooperative Discharge Data Allergies Allergy/AdvReac Type Severity Reaction Status Date / Time atorvastatin [From Lipitor] Allergy Intermediate Skin Rash Unverified 11/16/20 14:38 No Known Drug Allergies Allergy Unknown Verified 10/01/20 10:01 morphine AdvReac Intermediate Nausea Unverified 11/16/20 14:38 Consultations 11/16/20 14:21 ED Decision to Admit Stat 11/16/20 16:48 Consult Gastroenterology Routine Ordered Studies 11/16/20 13:02 CT angio chest PE protocol Stat CT head/brain wo con Stat 11/16/20 13:08 CT abd pelvis IV con only Stat 11/18/20 18:01 FL barium swallow Routine Hospital Course (1) Acute respiratory failure with hypoxia: Acute hypoxic respiratory failure 2/2 multifocal pneumonia. Likely due to aspiration as she reports that she frequently vomits and even woke up vomiting a few nights prior to admission. MRSA nares negative Continue cefepime/azithromycin while inpatient. Finished azithromycin, and also appeared to be unlikely to be atypical bacteria. => Switched to Augmentin on discharge. (2) Regurgitation of food: Reports several months of regurgitating many foods/drinks she attempts to eat. - Barium swallow on 11/18 showed severe esophageal dysmotility. Did show normal dilation of GE junction, so achalasia a bit less likely. - GI consulted -> Plan for further outpatient testing including possible esophageal manometry. - Continue PPI PO BID (3) COPD (chronic obstructive pulmonary disease): COPD with history of tobacco use. No PFTs available for review. Continue Anoro Ellipta daily DuoNebs every 4 hours as needed Pulmonary toilet (4) Diabetes mellitus type 2 in obese: A1c was 8.6% in 10/2020. Hold home metformin, hold home Victoza Continue Lantus & sliding scale insulin - BS have been 120 - 140. (5) Current smoker: - Nicotine 21mcg patch (6) Hyperlipidemia: Continue home fenofibrate & pravastatin (7) GERD (gastroesophageal reflux disease): As above with plan. - Continue famotidine & PPI (8) HTN (hypertension), benign: BP today is 145/85. - Held home hydrochlorothiazide, lisinopril, and diltiazem for initial hypotension. Possibly due to hypovolemia as the patient is regurgitation. - Restart home lisinopril initially. Stable today so far. (9) Acute lumbar radiculopathy: - Continue voltarin - Continue home oxycodone, tramadol (10) SHELDON on CPAP: CPAP per protocol (11) Depression: No overt SI/HI today. - Continue home duloxetine (12) DVT prophylaxis: DVT prophylaxis: Heparin 5000 BID CODE STATUS: DNR. Pt OK with trial of intubation for declining respiratory status. Total Time Total Time Spent Total Time Spent (In Minutes): 35 Discharge Plan Discharge Items Patient Disposition: Home - Self-Care Reason For Visit: ACUTE HYPOXIC RESPIRATORY FAILURE, AMS Discharge Diagnosis: Aspiration pneumonia Activity: Resume your previous activity Non-emergency contact: Primary Care Provider and Insurance Underwriter Call non-emergency contact if: your symptoms worsen and your temperature is above 101 Follow-up/Referrals: Silverio Zambrano MD [Physician] - (Please see Dr. Zambrano in 1-2 weeks to follow up on your throwing up issue.) Manny Bland, [Primary Care Provider] - Diet: Carb Consistent or DM2 and Heart Healthy Addtl Attending Provider Instructions: Ms. Church, You were admitted to the hospital with pneumonia. This was probably from accidentally getting some vomit into your lungs. You mentioned you woke up throwing up, and I feel pretty confident that this could have caused your pneumonia. You were treated with antibiotics, and are feeling better. We will finish a course of oral antibiotics to help get rid of the last of the pneumonia. The GI team saw you while you were in the hospital. They would like to do some special testing of your esophagus because it doesn't seem like it is pushing food down the way it should be. This causes food and drink to get stuck in your esophagus which we think is what is causing you to regurgitate your food. Please see your PCP this week to be sure you are doing well and also follow up with the GI team to discuss the testing that needs to be done. Unfortunately, the testing has to be done as an outpatient, so we can't do it in the hospital. Some of it might also require a trip to [facility] because it's specialized, and [facility] many not have all the equipment. We are very sorry for the inconvenience, but it's the only way to get some of the testing done. Pending Studies at Discharge: No Stand-Alone Forms: My [facility], Smoking Cessation Medications and DC Order Prescriptions: New pantoprazole 40 mg Tablet,Delayed Release (Dr/Ec) 40 mg PO BID Qty: 60 RF: 0 amoxicillin-pot clavulanate [Augmentin] 875-125 mg tablet 1 tab PO BID Qty: 10 RF: 0 Continued pramipexole 1 mg tablet 1 mg PO HS RF: 0 metformin 500 mg tablet 1,000 mg PO BID RF: 0 gabapentin 600 mg tablet 600 mg PO TID RF: 0 pravastatin 40 mg tablet 40 mg PO DAILY RF: 0 diltiazem HCl 180 mg capsule,extended release 24hr 180 mg PO DAILY RF: 0 sucralfate 1 gram tablet 1 g PO ACHS PRN (Reason: Indigestion) RF: 0 cyanocobalamin (vitamin B-12) [Vitamin B-12] 1,000 mcg Tablet 1,000 mcg PO DAILY RF: 0 tramadol 50 mg tablet 50 mg PO DIRECTED PRN (Reason: Pain) RF: 0 fenofibrate micronized 134 mg capsule 134 mg PO DAILY RF: 0 hydrochlorothiazide 25 mg tablet 25 mg PO DAILY RF: 0 lisinopril 40 mg tablet 40 mg PO DAILY RF: 0 ondansetron 4 mg tablet,disintegrating 4 mg translingual Q8H PRN (Reason: Nausea) RF: 0 omega-3 fatty acids Capsule 1,000 mg PO DAILY RF: 0 duloxetine 30 mg capsule,delayed release(DR/EC) 30 mg PO DAILY RF: 0 duloxetine 60 mg capsule,delayed release(DR/EC) 60 mg PO DAILY RF: 0 cholecalciferol (vitamin D3) [Vitamin D3] 25 mcg (1,000 unit) Tablet 25 mcg PO DAILY RF: 0 famotidine 20 mg tablet 20 mg PO BID Qty: 14 RF: 0 diclofenac sodium 1 % gel 2 g TOPICAL QID PRN (Reason: Pain) RF: 0 oxycodone-acetaminophen [Percocet] 5-325 mg tablet 1 tab PO Q6H PRN (Reason: Pain) RF: 0 albuterol sulfate 90 mcg/actuation HFA aerosol inhaler 2 puff INHALATION Q3H PRN (Reason: Shortness Of Breath) RF: 0 Anoro Ellipta 62.5-25 mcg/actuation blister with device 62.5 inh INHALATION DAILY RF: 0 pantoprazole 40 mg tablet,delayed release (DR/EC) 40 mg PO DAILY RF: 0 acetaminophen 325 mg Tablet 650 mg PO Q4H PRN (Reason: fever or pain) Qty: 30 RF: 0 nicotine [Nicoderm CQ] 21 mg/24 hr Patch 24 Hour 21 mg transdermal QAM Qty: 28 RF: 0 Discontinued Xtampza ER 9 mg cap,sprinkl,ER12hr(DONT CRUSH) 9 mg PO BID PRN (Reason: Pain) RF: 0 Discharge Orders: Discharge Order (Routine); Ordered 11/19/20 Ordered By: Marcelino Zimmerman/Other Patient Handouts: Lifestyle Changes for Controlling GERD, How Acid Reflux Affects Your Throat Admission Data Admit Date/Time: 11/16/20 15:08 Attending Provider: Marcelino Brady Admit Provider: Patel Arellano Primary Care Provider: Manny Bland Other Providers: Zeferino Mcgovern ; Marcelino Brady Other Interventions: Discharge Summary Assessment (RN) Last Done: 11/19/20 11:31 Coding Level of Care Code D/C DAY MANAGEMENT >30 MINS Diagnoses Acute respiratory failure with hypoxia J96.01 Regurgitation of food R11.10 COPD (chronic obstructive pulmonary disease) J44.9 Diabetes mellitus type 2 in obese E11.69; E66.9 Current smoker F17.200 Hyperlipidemia E78.5 GERD (gastroesophageal reflux disease) K21.9 HTN (hypertension), benign I10 Acute lumbar radiculopathy M54.16 SHELDON on CPAP G47.33; Z99.89 Depression F32.9 DVT prophylaxis Z29.9
--- NOTE | 2020-11-28 08:15 | Coding Query ---
To promote full compliance with coding requirements relating to patient care, provider participation is requested in all cases of design printing machine setter uncertainty. Please assist us with the question(s) below: Coding Question(s): The diagnosis(es) below was documented in the ER H&P and/or H&P, then subsequently fell off all further documentation. Please indicate if it is still a possible diagnosis or ruled out. Physician's Response(s): SEPSIS ( ) Diagnosed and POA ( ) Diagnosed and not POA ( x ) Ruled out ( ) Other (please specify) METABOLIC ENCEPHALOPATHY ( x ) Diagnosed and POA ( ) Diagnosed and not POA ( ) Ruled out ( ) Other (please specify) SEVERE PROTEIN-CALORIE MALNUTRITION ( x ) Diagnosed and POA ( ) Diagnosed and not POA ( ) Ruled out ( ) Other (please specify) MTDD
== END 2020-11-19 12:19 | disposition home or self-care (01) | DRG 177 ==
LOC: ED 12:33 → 2W 15:08 → SUATTDRO 15:08 → 2W 16:28

== ENCOUNTER 2021-06-15 06:04 | Inpatient (IN) ==
--- NOTE | 2021-05-25 08:34 | PAT Medication Instructions ---
Medication Instructions Date of Service May 25, 2021 Home Medications Medication Instructions Recorded famotidine 20 mg tablet 20 mg PO BID #14 tab 05/06/20 acetaminophen 325 mg tablet 650 mg PO Q4H PRN #30 tab 11/10/20 ondansetron HCl 4 mg tablet 4 mg PO Q6H #30 tab 03/02/21 (Zofran) cholecalciferol (vitamin D3) 25 mcg (1,000 unit) tablet (Vitamin D3) 25 mcg PO QAM cyanocobalamin (vitamin B-12) 1,000 mcg tablet (Vitamin B-12) 1,000 mcg PO QAM diltiazem HCl 180 mg capsule,extended release 24 hr 180 mg PO QAM duloxetine 30 mg capsule,delayed release 30 mg PO QAM duloxetine 60 mg capsule,delayed release 60 mg PO QAM fenofibrate micronized 134 mg capsule 134 mg PO QPM gabapentin 600 mg tablet 600 mg PO TID hydrochlorothiazide 25 mg tablet 25 mg PO QAM lisinopril 40 mg tablet 40 mg PO QAM metformin 500 mg tablet 1,000 mg PO BID omega-3 fatty acids 1,000 mg PO QPM pramipexole 1 mg tablet 1 mg PO HS pravastatin 40 mg tablet 40 mg PO QAM sucralfate 1 gram tablet 1 g PO ACHS PRN famotidine 20 mg tablet 20 mg PO BID albuterol sulfate 90 mcg/actuation aerosol inhaler 2 puff INHALATION Q3H PRN umeclidinium 62.5 mcg-vilanterol 25 mcg/actuation powdr for inhalation (Anoro Ellipta) 62.5 inh INHALATION QAM acetaminophen 325 mg tablet 650 mg PO Q4H PRN diclofenac sodium 1 % topical gel 2 g TOPICAL QID PRN ondansetron HCl 4 mg tablet (Zofran) 4 mg PO Q6H oxycodone-acetaminophen 5 mg-325 mg tablet 1 tab PO Q6H PRN pantoprazole 40 mg tablet,delayed release 40 mg PO BID Continue as directed ondansetron HCl 4 mg tablet (Zofran) 4 mg PO Q6H ASK your surgeon for instructions diclofenac sodium 1 % topical gel 2 g TOPICAL QID PRN STOP taking 2 weeks before surgery omega-3 fatty acids 1,000 mg PO QPM STOP taking 48 hours before surgery fenofibrate micronized 134 mg capsule 134 mg PO QPM DO NOT take the morning of surgery cholecalciferol (vitamin D3) 25 mcg (1,000 unit) tablet (Vitamin D3) 25 mcg PO QAM cyanocobalamin (vitamin B-12) 1,000 mcg tablet (Vitamin B-12) 1,000 mcg PO QAM hydrochlorothiazide 25 mg tablet 25 mg PO QAM lisinopril 40 mg tablet 40 mg PO QAM metformin 500 mg tablet 1,000 mg PO BID Take morning of surgery With a small sip of water, OTHERWISE NOTHING TO EAT OR DRINK AFTER MIDNIGHT: diltiazem HCl 180 mg capsule,extended release 24 hr 180 mg PO QAM duloxetine 30 mg capsule,delayed release 30 mg PO QAM duloxetine 60 mg capsule,delayed release 60 mg PO QAM gabapentin 600 mg tablet 600 mg PO TID pravastatin 40 mg tablet 40 mg PO QAM famotidine 20 mg tablet 20 mg PO BID albuterol sulfate 90 mcg/actuation aerosol inhaler 2 puff INHALATION Q3H PRN(use if needed; please bring with you to hospital day of surgery if possible) umeclidinium 62.5 mcg-vilanterol 25 mcg/actuation powdr for inhalation (Anoro Ellipta) 62.5 inh INHALATION QAM acetaminophen 325 mg tablet 650 mg PO Q4H PRN(okay to take up to 4 hours prior to surgery if needed) oxycodone-acetaminophen 5 mg-325 mg tablet 1 tab PO Q6H PRN(okay to take up to 4 hours prior to surgery if needed) pantoprazole 40 mg tablet,delayed release 40 mg PO BID Take evening before surgery gabapentin 600 mg tablet 600 mg PO TID metformin 500 mg tablet 1,000 mg PO BID pramipexole 1 mg tablet 1 mg PO HS sucralfate 1 gram tablet 1 g PO ACHS PRN(if needed) famotidine 20 mg tablet 20 mg PO BID albuterol sulfate 90 mcg/actuation aerosol inhaler 2 puff INHALATION Q3H PRN(if needed) acetaminophen 325 mg tablet 650 mg PO Q4H PRN(if needed) oxycodone-acetaminophen 5 mg-325 mg tablet 1 tab PO Q6H PRN(if needed) pantoprazole 40 mg tablet,delayed release 40 mg PO BID Other Notes If you have any questions please call us at [phone] or [phone] or [phone] or [phone]
--- NOTE | 2021-05-26 13:48 | Anesthesiology Consultation ---
Date of Service May 26, 2021 Assessment & Plan (1) Encounter for pre-operative examination: - check BSG am DOS. - Case discussed with Dr. Nick. He advised patient is acceptable risk for surgery at this time and does not feel she needs additional evaluation or testing prior to surgery-advised notation for potential rapid sequence intubation given moderate to severe esophageal dysmotility, daily nausea, vomiting and h/o suspected aspiration. - COPD: Pt and granddaughter report fluctuating oxygen saturations with supposed walking test qualifying for supplemental oxygen, not available for review. In clinic patient stable, O2 92-94%, occasional nonproductive cough. - GI 03/04/2021 [place]: "...dysphagia and nausea & vomiting...continue Zofran...Again, would recommend esophageal manometry. Given patient option of doing manometry locally, then seeing GI at a tertiary center vs doing both in one place. She will discuss with her daughter. Continue Protonix 40 mg BID...further evaluation of dysphagia, nausea & vomiting...2020, she underwent a barium swallow that indicate moderate to severe esophageal dysmotility and the barium tablet became lodged in the esophagus...EGD...noted to have a tortuous esophagus...patient was dilated, but notes no improvement with this intervention..." Pt did not yet pursue esophageal manometry. - ENT 01/09/2021 [place]: "...edema of bilateral focal [sic] folds demonstrated for which she is encouraged to quit smoking. Post cricoid edema demonstrated consistent with prior h/o emesis. Unable to perform strobe today and a smaller scope with eye piece was used- this did not have recording capabilities. Given history, will have her return in 6-weeks for repeat visualization by Dr. Ang..." Pt did not return for f/u. - discharge summary 11/19/2020 [place]: "...acute hypoxic respiratory failure 2/2 multifocal pneumonia. Likely due to aspiration as she reports that she frequently vomits and even woke up vomiting a few nights prior to admission...regurgitation of food...plan for further outpatient testing including possible esophageal manometry..." - COVID screening: Per assessment on 05/26/2021: Travel screen negative, no known COVID-19 positive contacts or current COVID-19 related symptoms in past 2 weeks. Surgeon arranging preop COVID testing, scheduled 06/11/2021. Awaiting results. Chart Review Chart Review: Acceptable Risk for Surgery and Patient seen in Pre Admission Testing Teaching & Discussion Pre-Anesthesia Teaching/Discussion Notes: Instructed NPO after midnight before surgery, except medications with 15 cc of water. Medication instructions provided according to the PAT guidelines. History Surgery Operation Date: 06/15/21 07:45 Proposed Procedures p L1-L2 Decompression Possible Interbody Cage, T12-S1 Fusion, L2-S1 Hardware Removal - Manny Stallworth DO Height/Weight Height: 5 ft 4 in Weight: 78.2 kg Allergies Allergy/AdvReac Type Severity Reaction Status Date / Time atorvastatin [From Lipitor] Allergy Intermediate Skin Rash Verified 05/22/21 14:20 morphine AdvReac Intermediate Nausea Verified 05/22/21 14:20 Medications Home Medications Medication Instructions Recorded Confirmed Last Taken cholecalciferol (vitamin D3) 25 25 mcg PO QAM 05/03/20 05/22/21 12/01/20 08:00 mcg (1,000 unit) tablet (Vitamin D3) cyanocobalamin (vitamin B-12) 1,000 mcg PO QAM 05/03/20 05/22/21 12/01/20 08:00 1,000 mcg tablet (Vitamin B-12) diltiazem HCl 180 mg 180 mg PO QAM 05/03/20 05/22/21 12/02/20 03:00 capsule,extended release 24 hr duloxetine 30 mg capsule,delayed 30 mg PO QAM 05/03/20 05/22/21 12/01/20 08:00 release duloxetine 60 mg capsule,delayed 60 mg PO QAM 05/03/20 05/22/21 12/01/20 08:00 release fenofibrate micronized 134 mg 134 mg PO QPM 05/03/20 05/22/21 12/01/20 18:00 capsule gabapentin 600 mg tablet 600 mg PO TID 05/03/20 05/22/21 12/02/20 03:00 hydrochlorothiazide 25 mg tablet 25 mg PO QAM 05/03/20 05/22/21 12/01/20 08:00 lisinopril 40 mg tablet 40 mg PO QAM 05/03/20 05/22/21 12/01/20 08:00 metformin 500 mg tablet 1,000 mg PO BID 05/03/20 05/22/21 12/01/20 21:00 omega-3 fatty acids 1,000 mg PO QPM 05/03/20 05/22/21 12/01/20 08:00 pramipexole 1 mg tablet 1 mg PO HS 05/03/20 05/22/21 12/01/20 21:00 pravastatin 40 mg tablet 40 mg PO QAM 05/03/20 05/22/21 12/01/20 08:00 sucralfate 1 gram tablet 1 g PO ACHS PRN 05/03/20 05/22/21 Unknown famotidine 20 mg tablet 20 mg PO BID #14 tab 05/06/20 05/22/21 12/01/20 18:00 albuterol sulfate 90 mcg/actuation 2 puff INHALATION Q3H PRN 11/08/20 05/22/21 12/02/20 06:00 aerosol inhaler umeclidinium 62.5 mcg-vilanterol 62.5 inh INHALATION QAM 11/08/20 05/22/21 11/15/20 25 mcg/actuation powdr for inhalation (Anoro Ellipta) acetaminophen 325 mg tablet 650 mg PO Q4H PRN #30 tab 11/10/20 05/22/21 Unknown diclofenac sodium 1 % topical gel 2 g TOPICAL QID PRN 11/16/20 05/22/21 12/01/20 22:00 ondansetron HCl 4 mg tablet 4 mg PO Q6H #30 tab 03/02/21 05/22/21 Unknown (Zofran) oxycodone-acetaminophen 5 mg-325 1 tab PO Q6H PRN 05/22/21 05/22/21 Unknown mg tablet pantoprazole 40 mg tablet,delayed 40 mg PO BID 05/22/21 05/22/21 Unknown release Past Medical History Medical History (Updated 05/26/21 @ 16:23 by Remedios Aguirre PA-C) Chronic low back pain Chronic obstructive pulmonary disease inhaler prn; O2 sats 90-94% per pt and granddaughter, they report qualifying walking test however that follow-up test was then normal, patient is not currently on supplemental oxygen, they deny recent walking desat test Current smoker Depression Diabetes mellitus type 2 in obese NIDDM Dysphagia Esophageal dysmotility GERD (gastroesophageal reflux disease) History of esophageal dilatation HTN (hypertension), benign Hyperlipidemia Nausea & vomiting anytime eats or drinks, per pt and granddaughter was thought to be d/t mucus from smoking as does not happen when not smoking during hospitalizations Obesity Peptic ulcer disease (~2017) bleeding ulcer Peripheral neuropathy Restless leg syndrome Schatzki's ring Sleep apnea unable to tolerate cpap Weight loss, unintentional Patient denies h/o stroke, seizures, heart attack, heart failure, blood clots or blood transfusions. Exercise / Class Metabolic Activity II 4-5 Yardwork/Stairs/Walk up hill (denies CP or SOB with 1 FOS) Past Family History Family History Father Heart disease Brother Kidney disease Mother Gastric cancer Family/Other Testicular cancer Other No family history of adverse response to anesthesia Past Surgical History Surgical History History of bilateral tubal ligation History of carpal tunnel release Left History of cataract surgery bilateral History of colonoscopy History of esophagogastroduodenoscopy (EGD) History of lumbar fusion History of repair of rotator cuff Right S/P epidural steroid injection Past Anesthesia History No Hx of Anesthesia Complications and No Family Hx of Anesthesia Complications History of PONV No Hx of PONV and No Hx of Motion Sickness Social History Smoking Status: Current every day smoker tobacco type: cigarettes Smoking cigarettes per day: 10 a day Do You Dip or Chew Tobacco: No Hx Alcohol Use: No Hx Substance Use: No substance use type: does not use Review of Systems Daily chronic nonproductive cough. Patient denies chest pain, shortness of breath, dyspnea on exertion, fever, chills, or palpitations. Physical Exam Vital Signs Vitals BP 169/84 pt states is often anxious in clinical settings, has home cuff but does not check BP. Manual reading with patient resting with feet flat on floor x 10-15 minutes: 162/80). P 88 TEMP 98.8 SP02 92% on RA RESP 17 Physical Full cervical extension range of motion without pain Full TMJ range of motion TMD 3.5 finger breaths Mallampati Score 3 Dentition: edentulous Lungs: normal respiratory effort. Mild diffuse expiratory wheezes throughout, no rales or rhonchi Cardiac: regular rate and rhythm, no murmurs noted Carotid arteries: negative bruit bilat Extremities: no distal extremity edema Lab Results Anesthesia Preop Results Results Anesthesia Widget: PT 10.0 Seconds (9.0-12.0) 05/26/21 PTT 25.0 Seconds (21.0-31.0) 05/26/21 INR 1.0 (0.9-1.1) 05/26/21 Urine Color Yellow 05/26/21 Urine Appearance Clear (Clear) 05/26/21 Urine pH 7.0 (4.5-7.5) 05/26/21 Urine Specific [place] 1.016 (1.000-1.030) 05/26/21 Urine Protein 2+ (Negative) H 05/26/21 Urine Glucose (UA) Negative (Negative) 05/26/21 Urine Ketones Negative (Negative) 05/26/21 Urine Blood Negative (Negative) 05/26/21 Urine Nitrite Negative (Negative) 05/26/21 Urine Bilirubin Negative (Negative) 05/26/21 Urine Urobilinogen Negative (Negative) 05/26/21 Urine Leukocyte Esterase Negative (Negative) 05/26/21 Urine WBC (Auto) 1-5 /hpf (0-5) 05/26/21 Urine RBC (Auto) 0-4 /hpf (0-4) 05/26/21 Urine Hyaline Casts (Auto) 0 /lpf (0-5) 05/26/21 Urine Epithelial Cells (Auto) 10-20 /lpf (0-5) H 05/26/21 Urine Bacteria (Auto) Negative (Negative) 05/26/21 Blood Type B Positive 05/26/21 Antibody Screen NEGATIVE 05/26/21 Lab Comments: 05/20/2021 WBC: 5.5 H/H: 13.3/41.5 PLATELETS: 316 SODIUM: 136 POTASSIUM: 4.7 CHLORIDE: 102 CO2: 31 BUN: 15 CREATININE: 0.8 GLUCOSE: 187 A1c: 8.1% Testing Electrocardiogram Date: 05/26/21 Chest X-Ray Date: 05/26/21 FINDINGS: Frontal and lateral radiographs of the chest demonstrate the heart size to again be enlarged. Calcified granuloma are again seen within the lung parenchyma. The lungs are clear of alveolar opacities. There is no evidence for effusion bilaterally. There is no evidence for vascular congestion. There is no acute osseous pathology. IMPRESSION: Cardiomegaly with no acute chest disease. Other Testing Barium swallow 11/18/2020 IMPRESSION: 1. Moderate to severe esophageal dysmotility. 2. The barium pill became lodged in the distal esophagus. CTA, CT chest, CT abdomen/pelvis 11/16/2020 CTA: Moderate cardiomegaly. There is no pericardial effusion. Moderate atherosclerosis of the thoracic aorta without aneurysm or dissection. There is patency of the imaged great vessels. The pulmonary artery is opacified to level the subsegmental branches and demonstrates no filling defects to suggest thromboembolic disease. CT CHEST: No thyroid nodule. The esophagus is fluid-filled and mildly distended with mild diffuse wall thickening. No adenopathy. Patchy groundglass and consolidative opacities throughout the left upper lobe, lingula and left greater than right lower lobes and basal right middle lobe. Respiratory motion artifact limits evaluation of the lung parenchyma. Mild emphysema. There are a few scattered calcified pulmonary granulomata. Mild bilateral bronchial wall thickening. Unremarkable soft tissues. Degenerative changes of the shoulders and spine. No acute fracture. CT ABDOMEN/PELVIS: There is no pneumatosis or pneumoperitoneum. The spleen, mildly atrophic pancreas, and liver appear unremarkable. Patency of the hepatic and portal veins. Distended gallbladder. 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 Unremarkable kidneys. No hydronephrosis. Urinary bladder wall thickening with partial distention. Heterogeneous uterus. No adnexal mass lesions. Extensive atherosclerotic plaque of the abdominal aorta without aneurysm. No adenopathy. No bowel obstruction or bowel wall thickening. Moderate fecal retention. Extensive colonic diverticulosis. No CT evidence of acute diverticulitis. Normal appendix. No ascites or mesenteric inflammation. Posterior interbody ava and screw fusion noted at L2-S1. The left L2 pedicle screw partially extends into the L1-L2 disc space. Discectomy changes. The previously noted large disc extrusion at L1-L2 is better characterized on comparison MRI of the lumbar spine. IMPRESSION: 1. Cardiomegaly without pulmonary emboli. 2. Multilobar left greater than right bibasilar predominate alveolar and groundglass opacities suggestive of multifocal pneumonia. 3. Mild emphysema. 4. Fluid-filled distended esophagus with diffuse esophageal wall thickening. 5. No bowel obstruction. Normal appendix. 6. Colonic diverticulosis. 7. Additional findings as above. Head CT 11/16/2020 FINDINGS: No acute intracranial hemorrhage, midline shift, intracranial mass, hydrocephalus, territorial ischemia or abnormal extra-axial collection. Extensive white matter hypodensities redemonstrated suggestive of chronic microvascular ischemic disease. The calvarium is intact. Mastoid air cells are clear. Polypoid mucosal thickening of the left maxillary sinus is partially imaged. Unremarkable soft tissues. Prior bilateral lens repair. IMPRESSION: No acute intracranial abnormality.
[~2021-06-15 06:04] MED LIST: ACETAMINOPHEN 500 MG TAB PO SCH; CeleBREX 200 MG CAP PO SCH; GABAPENTIN 300 MG CAP PO SCH; LR 15ML/HR IV SCH; ceFAZolin 1000MG 1,000 MG/7.5 ML SYR IV SCH
[2021-06-15] MEDS ORDERED: ceFAZolin 330 MG/ML 1 GM VIAL ONE (06:57)
[2021-06-15] MEDS ORDERED: ROCURONIUM BROMIDE 10 MG/ML 5 ML VIAL IV ONE (06:57)
[2021-06-15] MEDS ORDERED: BUPIVACAINE/EPINEPHRINE 0.25% 1:200,000 30 ML VIAL ONE (06:57)
[2021-06-15] MEDS ORDERED: PROPOFOL IV EMULSION 10 MG/ML 20 ML VIAL IV ONE (06:57)
[2021-06-15] MEDS ORDERED: LIDOCAINE 2% 2 ML VIAL/AMP(20MG/ML) INFIL ONE (06:57)
[2021-06-15] MEDS ORDERED: fentaNYL citrate 100 MCG/2 ML VIAL ONE (06:58)
[2021-06-15] MEDS ORDERED: MIDAZOLAM HCL 1 MG/ML 2ML VIAL ONE (06:58)
[2021-06-15] MEDS ORDERED: ALBUMIN HUMAN 5% 12.5 GM/250 ML VIAL IV ONE (07:04)
[2021-06-15] MEDS ORDERED: DexMEDEtomidine HCL IV 100 MCG/ML VIAL IV ONE (07:04)
--- NOTE | 2021-06-15 07:31 | History & Physical Bridge Note ---
Date of Service June 15, 2021 History & Physical Bridge Note I have examined the patient, reviewed the History & Physical and in the interval since the performance of the History & Physical I have noted the following changes of clinical significance: no changes noted
--- NOTE | 2021-06-15 07:33 | History & Physical Report ---
Date of Service June 15, 2021 Assessment & Plan (1) Neurogenic claudication due to lumbar spinal stenosis: Plan: L1-L2 decompression, possible interbody cage, T12-L1 fusion, L2-S1 hardware removal History of Present Illness Chief Complaint: Back and bilateral leg pain Primary Care Provider: Manny Bland DO This is a 73-year-old female presents with chronic persistent back and leg pain after failing course of nonoperative care is here for surgical invention. Allergies Allergy/AdvReac Type Severity Reaction Status Date / Time atorvastatin [From Lipitor] Allergy Intermediate Skin Rash Verified 06/15/21 07:14 morphine AdvReac Intermediate Nausea Verified 06/15/21 07:14 Home Medications Medication Instructions Recorded Confirmed Type cholecalciferol (vitamin D3) 25 25 mcg PO QAM 05/03/20 06/15/21 History mcg (1,000 unit) tablet (Vitamin D3) cyanocobalamin (vitamin B-12) 1,000 mcg PO QAM 05/03/20 06/15/21 History 1,000 mcg tablet (Vitamin B-12) diltiazem HCl 180 mg 180 mg PO QAM 05/03/20 06/15/21 History capsule,extended release 24 hr duloxetine 30 mg capsule,delayed 30 mg PO QAM 05/03/20 06/15/21 History release (Cymbalta) duloxetine 60 mg capsule,delayed 60 mg PO QAM 05/03/20 06/15/21 History release fenofibrate micronized 134 mg 134 mg PO QPM 05/03/20 06/15/21 History capsule gabapentin 600 mg tablet 600 mg PO TID 05/03/20 06/15/21 History hydrochlorothiazide 25 mg tablet 25 mg PO QAM 05/03/20 06/15/21 History lisinopril 40 mg tablet 40 mg PO QAM 05/03/20 06/15/21 History metformin 500 mg tablet 1,000 mg PO BID 05/03/20 06/15/21 History pramipexole 1 mg tablet (Mirapex) 1 mg PO HS 05/03/20 06/15/21 History pravastatin 40 mg tablet 40 mg PO QAM 05/03/20 06/15/21 History sucralfate 1 gram tablet (Carafate) 1 g PO ACHS PRN 05/03/20 06/15/21 History famotidine 20 mg tablet 20 mg PO BID #14 tab 05/06/20 06/15/21 Rx albuterol sulfate 90 mcg/actuation 2 puff INHALATION Q3H PRN 11/08/20 06/15/21 History aerosol inhaler umeclidinium 62.5 mcg-vilanterol 62.5 inh INHALATION QAM 11/08/20 06/15/21 History 25 mcg/actuation powdr for inhalation (Anoro Ellipta) acetaminophen 325 mg tablet 650 mg PO Q4H PRN #30 tab 11/10/20 06/15/21 Rx diclofenac sodium 1 % topical gel 2 g TOPICAL QID PRN 11/16/20 06/15/21 History ondansetron HCl 4 mg tablet 4 mg PO Q6H #30 tab 03/02/21 06/15/21 Rx (Zofran) oxycodone-acetaminophen 5 mg-325 1 tab PO Q6H PRN 05/22/21 06/15/21 History mg tablet pantoprazole 40 mg tablet,delayed See Rx Instructions .ROUTE 05/28/21 06/15/21 Rx release .COMPLEX #60 tablet Past Med/Surg History Medical History (Updated 06/15/21 @ 07:32 by Manny Stallworth DO) Chronic low back pain Chronic obstructive pulmonary disease inhaler prn; O2 sats 90-94% per pt and granddaughter, they report qualifying walking test however that follow-up test was then normal, patient is not currently on supplemental oxygen, they deny recent walking desat test Current smoker Depression Diabetes mellitus type 2 in obese NIDDM Dysphagia Esophageal dysmotility GERD (gastroesophageal reflux disease) History of esophageal dilatation HTN (hypertension), benign Hyperlipidemia Nausea & vomiting anytime eats or drinks, per pt and granddaughter was thought to be d/t mucus from smoking as does not happen when not smoking during hospitalizations Obesity Peptic ulcer disease (~2017) bleeding ulcer Peripheral neuropathy Restless leg syndrome Schatzki's ring Sleep apnea unable to tolerate cpap Weight loss, unintentional Surgical History History of bilateral tubal ligation History of carpal tunnel release Left History of cataract surgery bilateral History of colonoscopy History of esophagogastroduodenoscopy (EGD) History of lumbar fusion History of repair of rotator cuff Right S/P epidural steroid injection Family History Father Heart disease Brother Kidney disease Mother Gastric cancer Family/Other Testicular cancer Other No family history of adverse response to anesthesia Social History Smoking Status: Current every day smoker Tobacco Type: Cigarettes Age Started Using Tobacco: 11; Years Smoked: 63; Cigarettes Per Day: 10 a day; Second Hand Exposure: No; Do You Dip or Chew Tobacco: No; Tobacco Cessation Education Requested by Patient: No Hx Alcohol Use: No Hx Substance Use: No Preferred Language: Lithuanian Communication Ability: Effective Accounting Office Manager Required: No Beliefs That Will Affect Care: None marital status: / Current Living Situation: Family Current Living Situation Comment: home with son Other Information That Helps Us Care for You: No Feels Safe at Home: Yes Safety Concerns: Feels Safe At This Time Assistive Devices: CPAP, Denture - Upper, Denture - Lower, Hearing Aid - Bilateral and Walker Physical Exam Physical Exam: Patient is alert and oriented Heart regular rate and rhythm Lungs clear
[2021-06-15] MEDS ORDERED: ONDANSETRON INJ 2 MG/ML 2 ML VIAL IV PRN ×2 (08:10→12:36)
[2021-06-15] MEDS ORDERED: fentaNYL citrate 100 MCG/2 ML VIAL IV PRN (08:10)
[2021-06-15] MEDS ORDERED: PROMETHAZINE HCL 6.25 MG in SODIUM CHLORIDE 0.9% 50 ML IV PRN (08:10)
[2021-06-15] MEDS ORDERED: ATROPINE SULFATE 0.1 MG/ML 10ML SYR IV PRN (08:10)
[2021-06-15] MEDS ORDERED: ePHEDrine sulfate 50 MG/ML AMP IV PRN (08:10)
[2021-06-15] MEDS ORDERED: KETAMINE 50 MG/5 ML SYRINGE ONE (08:21)
[2021-06-15] MEDS ORDERED: FLOSEAL HEMOSTATIC MATRIX 10ML TOP ONE (08:49)
[2021-06-15] MEDS ORDERED: GLYCOPYRROLATE 0.2 MG/ML VIAL ONE ×3 (08:56→09:26)
[2021-06-15] MEDS ORDERED: HYDROmorphone INJ 2 MG/ML SYR/VIAL ONE (09:08)
[2021-06-15] MEDS ORDERED: NEOSTIGMINE METHYLSULFATE 1 MG/ML 10ML VIAL ONE (09:26)
[2021-06-15] MEDS ORDERED: ONDANSETRON INJ 2 MG/ML 2 ML VIAL ONE (10:12)
--- NOTE | 2021-06-15 10:14 | Operative Report ---
Post Operative Report Pre & Post Diagnosis Operation Date: 06/15/21 07:45 Pre-Op Diagnosis: Spinal Stenosis, Lumbar Region with Neurogenic Claudication Post-Op Diagnosis: Spinal Stenosis, Lumbar Region with Neurogenic Claudication I identified the patient and participated in the time-out.: Yes Procedure Operation Date: 06/15/21 07:45 Actual Procedures #1 removal of posterior instrumentation L2-S1. #2 exploration of fusion L2-S1. #3 lumbar decompression T12-L1 L1-L2. #4 posterior spinal fusion T12-L2. #5 placement posterior instrumentation T12-S1. #6 interbody fusion L1-L2. #7 placement of peek cage 8 x 22 mm at L1-L2. #8 placement locally harvested morselized autograft in the posterior gutters. #9 placement use collagen sponge and master graft in the posterior gutters and I factor and interbody space. Surgeon Manny Stallworth, Curator [facility] Annabelle Perdomo Estimated Blood Loss 100 Findings Consistent with Post-Op Diagnosis Specimens None Indications This is a 75-year-old female presents with bulge diagnosis after failing course of nonoperative care having a steady decline in status is here for the above-mentioned procedure. Description of Procedure Patient met with identified informed consent obtained. Patient was then taken to the operative suite underwent patient placed in prone position on the [place] table top Wang frame. All bony prominences well-padded eyes inspected to ensure no external pressure placed monitor at this point the cervical spine was prepped and draped no sterile fashion. Sharp dissection with the assistance of Bovie cautery performed down to and exposing the lamina and transverse processes of T12-L2 including instrumentation of L2-S1 bilaterally. And then proceeded to move the hardware bilaterally explore the fusion mass noted to be intact. Informed complete laminectomy of L1 partial laminectomy of T12 including bilateral medial facetectomies and foraminotomies addressing severe spinal stenosis. Pedicle screws were then placed in T12 L1-L2-L3 and S1 bilaterally with assistance of fluoroscopy the proper sized ava placed. By way of transfer approach and right complete discectomy was performed endplates curetted to subcortical being bone and an 8 x 22 mm peek cage with I factor tapped in position. The rods were then locked in final position bilaterally. The transverse processes T12 L1-L2 burred to subcortical bleeding bone. Infuse collagen sponge master graft lobe autograft was placed in posterior gutters. 15 round TIFFANY drain inserted. The incision was then closed with 1 Vicryl to fascia 2-0 Vicryl subcutaneously and 4 Monocryl for final skin closure. Steri-Strips dressings placed. Patient will continue PACU stable addition. Please note spinal cord monitoring was utilized at the procedure no changes noted. Lastly Annabelle Perdomo was present at the entire surgeon while the patient positioning complex portions of the surgery and final skin closure. I attest to the content of the Intraoperative Record and any orders documented therein. Any exceptions are noted below.
--- NOTE | 2021-06-15 10:24 | Fluoroscopy Report ---
FL lumbar spine 2-3V CLINICAL HISTORY: T12-S1 decompression and fusion COMPARISON STUDY: None. FLUOROSCOPY TIME: 35 seconds. FINDINGS: 3 fluoroscopic spot images of the lumbar spine demonstrate posterior decompression and fusi on. The exact levels are difficult to identify on this spot image but appears to represent the L1-S1 levels. The hardware appears intact. IMPRESSION: Fluoroscopic assistance provided for posterior decompression and fusion within the lumbar spine as described above. ACT 112: Negative or not required by law. Electronically signed by: Alvin Mcmillan M.D. 06/15/2021 10:22 AM
[2021-06-15] MEDS ORDERED: PROMETHAZINE HCL INJ 25 MG/ML 1 ML VIAL ONE (10:55)
[2021-06-15] MEDS ORDERED: SODIUM CHLORIDE 0.9% 50 ML BAG ONE (10:55)
[2021-06-15] MEDS: HYDROmorphone INJ 2 MG/ML SYR/VIAL IV PRN ×2 (11:20→11:25)
--- NOTE | 2021-06-15 12:20 | Anesthesiology Progress Note ---
Date of Service June 15, 2021 Anesthesia Post Procedure Vital Signs Vital Signs: Temp Pulse Pulse Resp BP Pulse Ox 06/15/21 12:05 98.4 F 52 L 11 L 111/52 L 94 06/15/21 11:55 98.4 F 54 L 12 119/57 L 95 06/15/21 11:45 98.4 F 54 L 11 L 120/58 L 96 06/15/21 11:35 98.4 F 53 L 12 117/58 L 94 06/15/21 11:25 55 L 17 126/61 97 06/15/21 11:15 78 13 117/65 98 06/15/21 11:05 57 L 17 161/76 H 99 06/15/21 10:55 64 18 167/97 H 100 06/15/21 10:45 68 23 161/76 H 98 06/15/21 10:39 97.9 F 71 16 165/79 H 98 06/15/21 07:27 98.4 F 83 20 149/72 H 92 Pain Intensity Back: Pain Intensity: 5 Transfer of Care Handoff Completed per policy Notes Mental Status: alert / awake / arousable and participated in evaluation Patient Amnestic to Procedure: Yes Nausea / Vomiting: adequately controlled Pain: adequately controlled Airway Patency, RR, SpO2: stable & adequate BP & HR: stable & adequate Hydration State: stable & adequate Anesthetic Complications: no major complications apparent and Pt Satisfied with anesthetic care
[2021-06-15] MEDS ORDERED: LORazepam 2 MG/1 ML VIAL IV PRN (12:36)
[2021-06-15] MEDS ORDERED: DO NOT ADMINISTER FLU VACCINE PRN (12:36)
[2021-06-15] MEDS ORDERED: HYDROmorphone INJ 1 MG/ML SYRINGE IV PRN (12:36)
[2021-06-15] MEDS ORDERED: FAMOTIDINE 20 MG TAB PO PRN (12:36)
[2021-06-15] MEDS ORDERED: ACETAMINOPHEN 1,000 MG/100 ML VIAL IV PRN (12:36)
[2021-06-15] MEDS ORDERED: PHARMACY GLYCEMIC MGMT CONSULT PRN (12:36)
[2021-06-15] MEDS ORDERED: diphenhydrAMINE Capsule 25 MG CAP PO PRN (12:36)
[2021-06-15] MEDS ORDERED: ALBUTEROL HFA 8 GM INHALER INH PRN (12:36)
[2021-06-15] MEDS ORDERED: HYDROmorphone INJ 0.5 MG/0.5 ML SYR IV PRN (12:36)
[2021-06-15] MEDS ORDERED: DO NOT ADMINISTER PNEUMOCOCCAL VACCINE PRN (12:36)
[2021-06-15] MEDS ORDERED: SOD PHOSPHATE/SOD BIPHOSPHATE ENEMA 132 ML BTL PR PRN (12:36)
[2021-06-15] MEDS ORDERED: PROMETHAZINE HCL 12.5 MG in SODIUM CHLORIDE 0.9% 50 ML IV PRN (12:36)
[2021-06-15] MEDS ORDERED: hydrOXYzine HCl 25 MG TAB PO PRN (12:36)
[2021-06-15] MEDS ORDERED: NALOXONE HCL 0.4 MG/1 ML VIAL/CARP IV PRN (12:36)
[2021-06-15] MEDS ORDERED: METOCLOPRAMIDE HCL INJ 5 MG/ML 2 ML VIAL IV PRN (12:36)
[2021-06-15] MEDS ORDERED: SUCRALFATE 1 GM TAB PO PRN (12:36)
[2021-06-15] MEDS ORDERED: bisacodyL 10 MG SUPP PR PRN (12:36)
[2021-06-15] MEDS ORDERED: ALUMINUM/MAGNESIUM SUSP 30 ML UDC PO PRN (12:36)
[2021-06-15] MEDS: SODIUM CHLORIDE 0.9% 1000ML 1,000 ML IV SCH ×2 (13:39→21:34)
--- NOTE | 2021-06-15 13:54 | Hospitalist Consultation ---
Date of Consultation June 15, 2021 Assessment & Plan (1) Neurogenic claudication due to lumbar spinal stenosis: (2) S/P lumbar spine operation: Mrs. Church is a 75 year old female with a history ofCOPD, Acute Hypoxic Respiratory Failure secondary to Pneumonia, Tobacco Use (she quit smoking 2 days ago), Hyperlipidemia, Type 2 Diabetes Mellitus, Atherosclerosis of the Aorta, GERD, Hypertension, Depression, Severe ProteinCalorie Malnutrition, Sensorineural Hearing Loss, SHELDON (does not wear CPAP, doesn't stay on her face), Esophageal Dysmotility, and Lumbar Spinal Stenosis s/p Multi-level Decompression and Fusion earlier today with Dr. Stallworth extending from T-12 through S1. Patient is seen post-operatively in room 303 and she is doing well -- she has not had any complications from surgery or anesthesia. Her surgical pain is well controlled and she currently offers no complaints. -- Management as per Dr. Stallworth. -- Opiates/analgesics as needed. -- IV steroids given. -- Ambulate as tolerated. -- DVT prophylaxis as per Dr. Stallworth. -- Continue Cymbalta. -- Continue Gabapentin. -- Monitor post-op labs. (3) COPD (chronic obstructive pulmonary disease): This patient has smoked for the past 64 years, and quit 2 days ago. She states that she is absolutely done smoking. Not having any cravings right now. Recommend the followin. Stop smoking. 2. Albuterol as needed. 3. Anoro Ellipta inhaled daily. 4. Incentive spirometry. 5. May add transdermal nicotine if needed going forward. (4) HTN (hypertension), benign: Her blood pressure is acceptable. Continue to monitor, may have some fluctuation related to postoperative pain. 1. Continue Diltiazem CD 180 mg daily. 2. Resume Lisinopril 40 mg daily as of tomorrow. 3. Continue Hydrochlorothiazide 25 mg daily. 4. Strongly encouraged smoking cessation. (5) Diabetes mellitus type 2 in obese: She has longstanding type 2 diabetic and her blood sugar today has ranged between 142-165 mg/dL. Hemoglobin A1c 11/09/2020 was elevated at 8.6%. Patient refuses sliding scale insulin for coverage because she had a adverse reaction to it the last time she was here. Glycemic consult was placed by surgeon, pharmacist recommends Metformin 1000 mg t.i.d.. Monitor blood sugars, likely to go up with doses of steroids perioperatively. Recommend diabetic diet. (6) Hyperlipidemia: -- Continue Pravastatin 40 mg daily. -- Continue Fenofibrate 134 mg daily (7) Esophageal dysmotility: History of GERD and Schatzki's ring. She is followed by Gastroenterology. 1. Continue Protonix 40 mg b.i.d.. 2. Continue Zofran 4 mg as needed. 3. Continue Carafate 1 g before meals and at bedtime. Supervising Physician Co-Signing Physician Notes Patient was seen and examined independently I discussed the case with Johnathon HOLM I reviewed pertinent past medical social family history and also the plan of care and agree with the plan of care. Patient underwent T12 S1 fusion L1-L2 decompression by Dr. Stallworth on 06/15/21. Patient has a history of COPD with clubbing and has smoked since she was 11 she says she is quit smoking 2 days ago reportedly as sleep apnea using CPAP and history of type 2 diabetes. Postoperatively she had resolution of her radicular pain to her legs but she has persistent pain at the operative site otherwise she was not significantly hypoxic or tachypneic and her lungs had relatively good air movement despite her history of COPD Patient will be kept in our hospital convalescing from her recent lumbar surgery while we attend to her COPD hypertension and diabetes Any exceptions will be noted below History of Present Illness Reason for Consultation: -- Post-op Medical Management. Requesting Physician: Manny Stallworth DO Attending Physician: Tayo Regalado MD History of Present Illness Mrs. Church is a 75 year old female with a history ofCOPD, Acute Hypoxic Respiratory Failure secondary to Pneumonia, Tobacco Use (she quit smoking 2 days ago), Hyperlipidemia, Type 2 Diabetes Mellitus, Atherosclerosis of the Aorta, GERD, Hypertension, Depression, Severe ProteinCalorie Malnutrition, Sensorineural Hearing Loss, SHELDON (does not wear CPAP, doesn't stay on her face), Esophageal Dysmotility, and Lumbar Spinal Stenosis s/p Multi-level Decompression and Fusion earlier today with Dr. Stallworth extending from T-12 through S1. [facility] [place] for Post-op Medical Management. Patient is currently being seen in room 303, and she complains being "sore" from the surgery which is to be expected, she is otherwise doing well. She has less pain in her legs currently, although she has not been moving around much. She denies any anesthetic complications. She currently denies any nausea or dizziness. Patient does admit to chronic stable dyspnea exertion but states that she quit smoking 2 days ago and intends to stop smoking altogether. She has smoked for the past 64 years and has quit in the past temporarily. Patient currently denies any shortness of breath at rest, orthopnea, or PND. She has not had any chest pain, heaviness, tightness, pressure, or discomfort. She denies any history of exertional neck, jaw, back, arm, or chest pain. Patient's low back pain/surgical pain is currently controlled. Patient refuses any sliding scale insulin because she had a reaction to it the last time she was here. Allergies Allergy/AdvReac Type Severity Reaction Status Date / Time atorvastatin [From Lipitor] Allergy Intermediate Skin Rash Verified 06/15/21 07:14 morphine AdvReac Intermediate Nausea Verified 06/15/21 07:14 Home Medications Medication Instructions Recorded Confirmed Type cholecalciferol (vitamin D3) 25 25 mcg PO QAM 05/03/20 06/15/21 History mcg (1,000 unit) tablet (Vitamin D3) cyanocobalamin (vitamin B-12) 1,000 mcg PO QAM 05/03/20 06/15/21 History 1,000 mcg tablet (Vitamin B-12) diltiazem HCl 180 mg 180 mg PO QAM 05/03/20 06/15/21 History capsule,extended release 24 hr duloxetine 30 mg capsule,delayed 30 mg PO QAM 05/03/20 06/15/21 History release (Cymbalta) duloxetine 60 mg capsule,delayed 60 mg PO QAM 05/03/20 06/15/21 History release fenofibrate micronized 134 mg 134 mg PO QPM 05/03/20 06/15/21 History capsule gabapentin 600 mg tablet 600 mg PO TID 05/03/20 06/15/21 History hydrochlorothiazide 25 mg tablet 25 mg PO QAM 05/03/20 06/15/21 History lisinopril 40 mg tablet 40 mg PO QAM 05/03/20 06/15/21 History metformin 500 mg tablet 1,000 mg PO BID 05/03/20 06/15/21 History pramipexole 1 mg tablet (Mirapex) 1 mg PO HS 05/03/20 06/15/21 History pravastatin 40 mg tablet 40 mg PO QAM 05/03/20 06/15/21 History sucralfate 1 gram tablet (Carafate) 1 g PO ACHS PRN 05/03/20 06/15/21 History famotidine 20 mg tablet 20 mg PO BID #14 tab 05/06/20 06/15/21 Rx albuterol sulfate 90 mcg/actuation 2 puff INHALATION Q3H PRN 11/08/20 06/15/21 History aerosol inhaler umeclidinium 62.5 mcg-vilanterol 62.5 inh INHALATION QAM 11/08/20 06/15/21 History 25 mcg/actuation powdr for inhalation (Anoro Ellipta) acetaminophen 325 mg tablet 650 mg PO Q4H PRN #30 tab 11/10/20 06/15/21 Rx diclofenac sodium 1 % topical gel 2 g TOPICAL QID PRN 11/16/20 06/15/21 History ondansetron HCl 4 mg tablet 4 mg PO Q6H #30 tab 03/02/21 06/15/21 Rx (Zofran) oxycodone-acetaminophen 5 mg-325 1 tab PO Q6H PRN 05/22/21 06/15/21 History mg tablet pantoprazole 40 mg tablet,delayed See Rx Instructions .ROUTE 05/28/21 06/15/21 Rx release .COMPLEX #60 tablet oxycodone 5 mg tablet 5 mg PO Q6H PRN #30 tab 06/15/21 Rx tramadol 50 mg tablet 50 mg PO Q6H PRN #30 tab 06/15/21 Rx Patient History Medical History Chronic low back pain Chronic obstructive pulmonary disease inhaler prn; O2 sats 90-94% per pt and granddaughter, they report qualifying walking test however that follow-up test was then normal, patient is not currently on supplemental oxygen, they deny recent walking desat test Current smoker Quit smoking 06/13/21 Depression Diabetes mellitus type 2 in obese NIDDM Dysphagia Esophageal dysmotility GERD (gastroesophageal reflux disease) History of esophageal dilatation HTN (hypertension), benign Hyperlipidemia Nausea & vomiting anytime eats or drinks, per pt and granddaughter was thought to be d/t mucus from smoking as does not happen when not smoking during hospitalizations Obesity Peptic ulcer disease (~2017) bleeding ulcer Peripheral neuropathy Restless leg syndrome Schatzki's ring Sleep apnea unable to tolerate cpap Weight loss, unintentional Surgical History History of bilateral tubal ligation History of carpal tunnel release Left History of cataract surgery bilateral History of colonoscopy History of esophagogastroduodenoscopy (EGD) History of lumbar fusion History of repair of rotator cuff Right S/P epidural steroid injection Family History Father Heart disease Brother Kidney disease Mother Gastric cancer Family/Other Testicular cancer Other No family history of adverse response to anesthesia Social History Smoking Status: Former smoker Tobacco Type: Cigarettes Age Started Using Tobacco: 11; Years Smoked: 63; Cigarettes Per Day: 10 a day; Second Hand Exposure: No; Hx Alcohol Use: No Hx Substance Use: No Preferred Language: Niuean Communication Ability: Effective Ticket Printer Required: No Beliefs That Will Affect Care: None marital status: / Current Living Situation: Family Current Living Situation Comment: home with son Feels Safe at Home: Yes Assistive Devices: CPAP, Denture - Upper, Denture - Lower, Hearing Aid - [place] ateral and Walker Review of Systems Review of Systems: 10 point ROS was completed and is negative with the exception of what is mentioned in the HPI. Physical Exam Physical Exam: GENERAL: Patient in no acute distress. HEENT: Head is atraumatic, normocephalic. EOM's intact. Facies symmetric. No perioral cyanosis. NECK: No JVD. JVP is not elevated. Carotid upstrokes are + 2 bilaterally without obvious bruits.. CHEST/LUNGS: Harsh breath sounds throughout with scattered wheezes. No rales or crackles. CVS: S1 and S2 are regular, distant without obvious murmurs, gallops, or rubs. PMI is nonpalpable. No lifts, heaves, or thrills. No abdominal aortic or renal bruits. ABDOMINAL EXAM: Bowel sounds are present. No masses, organomegaly, or tenderness. EXTREMITIES: No clubbing or cyanosis. No edema. Intact radial pulses bilaterally. Bilateral SCD's are in place. NEUROLOGIC EXAM: Patient is awake, alert, and oriented. Pleasant and cooperative. Answers questions appropriately. Speech is clear, voice is raspy. Gait pattern was not assessed. Results & Data Results & Data ([facility]) Vital Signs (Past 12 Hours) Vital Signs Temp Pulse Pulse Resp BP Pulse Ox 06/15/21 13:35 54 L 16 110/61 95 06/15/21 13:06 36.8 C 52 L 18 111/61 93 06/15/21 12:36 36.4 C L 55 L 18 107/66 91 06/15/21 12:15 36.9 C 51 L 9 L 113/53 L 93 06/15/21 12:05 36.9 C 52 L 11 L 111/52 L 94 06/15/21 11:55 36.9 C 54 L 12 119/57 L 95 06/15/21 11:45 36.9 C 54 L 11 L 120/58 L 96 06/15/21 11:35 36.9 C 53 L 12 117/58 L 94 06/15/21 11:25 55 L 17 126/61 97 06/15/21 11:15 78 13 117/65 98 06/15/21 11:05 57 L 17 161/76 H 99 06/15/21 10:55 64 18 167/97 H 100 06/15/21 10:45 68 23 161/76 H 98 06/15/21 10:39 36.6 C 71 16 165/79 H 98 06/15/21 07:27 36.9 C 83 20 149/72 H 92 Laboratory Results Laboratory Results - last 24 hr 06/15/21 06/15/21 06/15/21 06:39 06:56 13:29 POC Glucose 142 H 165 H SARS-CoV-2, RNA, NAAT Blood Type B Positive Antibody Screen NEGATIVE Crossmatch See Detail 06/15/21 Unknown POC Glucose SARS-CoV-2, RNA, NAAT NEGATIVE Blood Type Antibody Screen Crossmatch Medications Administered Medications cholecalciferol (vitamin D3) 25 mcg (1,000 unit) tablet (Vitamin D3) 25 mcg PO QAM 05/03/20 [History Confirmed 06/15/21] cyanocobalamin (vitamin B-12) 1,000 mcg tablet (Vitamin B-12) 1,000 mcg PO QAM 05/03/20 [History Confirmed 06/15/21] diltiazem HCl 180 mg capsule,extended release 24 hr 180 mg PO QAM 05/03/20 [History Confirmed 06/15/21] duloxetine 30 mg capsule,delayed release (Cymbalta) 30 mg PO QAM 05/03/20 [History Confirmed 06/15/21] duloxetine 60 mg capsule,delayed release 60 mg PO QAM 05/03/20 [History Confirmed 06/15/21] fenofibrate micronized 134 mg capsule 134 mg PO QPM 05/03/20 [History Confirmed 06/15/21] gabapentin 600 mg tablet 600 mg PO TID 05/03/20 [History Confirmed 06/15/21] hydrochlorothiazide 25 mg tablet 25 mg PO QAM 05/03/20 [History Confirmed 06/15/21] lisinopril 40 mg tablet 40 mg PO QAM 05/03/20 [History Confirmed 06/15/21] metformin 500 mg tablet 1,000 mg PO BID 05/03/20 [History Confirmed 06/15/21] pramipexole 1 mg tablet (Mirapex) 1 mg PO HS 05/03/20 [History Confirmed 06/15/21] pravastatin 40 mg tablet 40 mg PO QAM 05/03/20 [History Confirmed 06/15/21] sucralfate 1 gram tablet (Carafate) 1 g PO ACHS PRN 05/03/20 [History Confirmed 06/15/21] famotidine 20 mg tablet 20 mg PO BID #14 tab 05/06/20 [Rx Confirmed 06/15/21] albuterol sulfate 90 mcg/actuation aerosol inhaler 2 puff INHALATION Q3H PRN 11/08/20 [History Confirmed 06/15/21] umeclidinium 62.5 mcg-vilanterol 25 mcg/actuation powdr for inhalation (Anoro Ellipta) 62.5 inh INHALATION QAM 11/08/20 [History Confirmed 06/15/21] acetaminophen 325 mg tablet 650 mg PO Q4H PRN #30 tab 11/10/20 [Rx Confirmed 06/15/21] diclofenac sodium 1 % topical gel 2 g TOPICAL QID PRN 11/16/20 [History Confirmed 06/15/21] ondansetron HCl 4 mg tablet (Zofran) 4 mg PO Q6H #30 tab 03/02/21 [Rx Confirmed 06/15/21] oxycodone-acetaminophen 5 mg-325 mg tablet 1 tab PO Q6H PRN 05/22/21 [History Confirmed 06/15/21] pantoprazole 40 mg tablet,delayed release See Rx Instructions .ROUTE .COMPLEX #60 tablet 05/28/21 [Rx Confirmed 06/15/21] Home Medications Acetaminophen (Acetaminophen 500 Mg Tab) 1,000 mg PO PREOP CLIVE Stop: 06/15/21 18:00 Last Admin: 06/15/21 07:48 Dose: 1,000 mg Documented by: Acetaminophen (Acetaminophen 500 Mg Tab) 1,000 mg PO Q8H PRN PRN Reason: MILD Pain Scale 1,2,3 & Pre PT Stop: 07/15/21 12:35 Al Hydrox/Mg Hydrox/Simethicone (Aluminum/Magnesium Susp 30 Ml Udc) 30 ml PO Q6H PRN PRN Reason: Dyspepsia Stop: 07/15/21 12:35 Albuterol (Albuterol Hfa 8 Gm Inhaler) 2 puffs INH Q3H PRN PRN Reason: Shortness Of Breath Stop: 07/15/21 12:35 Atropine Sulfate (Atropine Sulfate 0.1 Mg/Ml 10ml Syr) 0.5 mg IV Q1M PRN PRN Reason: PACU Use-HR<40 &/or Bradycardi Stop: 06/15/21 16:10 Bisacodyl (Bisacodyl 10 Mg Supp) 10 mg WI DAILY PRN PRN Reason: Constipation Stop: 07/15/21 12:35 Celecoxib (Celebrex 200 Mg Cap) 200 mg PO PREOP CLIVE Stop: 06/15/21 18:00 Last Admin: 06/15/21 07:48 Dose: 200 mg Documented by: Cyanocobalamin (Cyanocobalamin (B-12) 500 Mcg Tablet) 1,000 mcg PO QAM CLIVE Stop: 07/16/21 08:59 Dextrose (Dextrose 50% 50 Ml Syringe) 25 - 50 ml IV UD PRN; Protocol PRN Reason: Hypoglycemia Protocol Stop: 07/15/21 14:14 Diltiazem HCl (Diltiazem Hcl 180 Mg Capcr) 180 mg PO QAM [facility] Stop: 07/16/21 08:59 Diphenhydramine HCl (Diphenhydramine Capsule 25 Mg Cap) 25 mg PO Q6H PRN PRN Reason: Allergic Rhinitis/Insomnia Stop: 07/15/21 12:35 Duloxetine HCl (Duloxetine Hcl 30 Mg Cap) 30 mg PO QAM [facility] Stop: 07/16/21 08:59 Duloxetine HCl (Duloxetine Hcl 60 Mg Cap) 60 mg PO QAM [facility] Stop: 07/16/21 08:59 Ephedrine Sulfate (Ephedrine Sulfate 50 Mg/Ml Amp) 5 mg IV Q5M PRN PRN Reason: PACU Use Only-SBP<90 mmHg Stop: 06/15/21 16:10 Famotidine (Famotidine 20 Mg Tab) 20 mg PO BID [facility] Stop: 07/15/21 20:59 Fenofibrate (Fenofibrate Nanocrystallized 145 Mg Tablet) 145 mg PO QPM [facility] Stop: 07/15/21 20:59 Fentanyl Citrate (Fentanyl Citrate 100 Mcg/2 Ml Vial) 50 mcg IV Q5M PRN PRN Reason: PACU Use Only-Pain Stop: 06/15/21 16:11 Last Admin: 06/15/21 10:55 Dose: 50 mcg Documented by: Gabapentin (Gabapentin 300 Mg Cap) 300 mg PO PREOP [facility] Stop: 06/15/21 18:00 Last Admin: 06/15/21 07:49 Dose: Not Given Documented by: Gabapentin (Gabapentin 600 Mg Tab) 600 mg PO TID [facility] Stop: 07/15/21 13:59 Glucagon (Glucagon For Inj 1 Mg Vial) 1 mg IM UD PRN; Protocol PRN Reason: Hypoglycemia Protocol Stop: 07/15/21 14:14 Glucose (Glucose 40% Gel 15 Gm Tube) 15 - 30 gm PO UD PRN; Protocol PRN Reason: Hypoglycemia Protocol Stop: 07/15/21 14:14 Glucose (Glucose 10 Tabs/Tube) 4 - 8 tabs PO UD PRN; Protocol PRN Reason: Hypoglycemia Protocol Stop: 07/15/21 14:14 Hydrochlorothiazide (Hydrochlorothiazide 25 Mg Tab) 25 mg PO QAM [facility] Stop: 07/16/21 08:59 Hydromorphone HCl (Hydromorphone Inj 2 Mg/Ml Syr/Vial) 0.5 mg IV Q5M PRN PRN Reason: PACU Use Only-Pain Stop: 06/15/21 16:11 Last Admin: 06/15/21 11:25 Dose: 0.5 mg Documented by: Hydromorphone HCl (Hydromorphone Inj 0.5 Mg/0.5 Ml Syr) 0.5 mg IV Q3H PRN PRN Reason: MODERATE Pain (Scale 4,5,6) & Pre PT Stop: 06/29/21 12:35 Hydromorphone HCl (Hydromorphone Inj 1 Mg/Ml Syringe) 1 mg IV Q3H PRN PRN Reason: SEVERE Pain (Scale 7,8,9,10) Stop: 06/29/21 12:35 Hydroxyzine HCl (Hydroxyzine Hcl 25 Mg Tab) 25 mg PO Q8H PRN PRN Reason: Anxiety Stop: 07/15/21 12:35 Lactated Ringer's (Lr) 1,000 mls @ 15 mls/hr IV .Q24H [facility] Stop: 06/16/21 05:59 Last Infusion: 06/15/21 07:54 Dose: Infused Documented by: Cefazolin Sodium (Ancef 1000mg) 1,000 mg in 7.5 mls @ 2.5 mls/min IV PREOP CLIVE; Protocol Stop: 06/15/21 18:00 Last Admin: 06/15/21 07:54 Dose: 2.5 mls/min Documented by: Promethazine HCl 6.25 mg/ (Sodium Chloride) 50.25 mls @ 204 mls/hr IV ONCE PRN PRN Reason: PACU Use Only-Nausea/Vomiting Stop: 06/15/21 16:11 Last Infusion: 06/15/21 12:52 Dose: Infused Documented by: Cefazolin Sodium (Ancef 2000mg) 2,000 mg in 15 mls @ 3.75 mls/min IV Q8H [facility]; Protocol Stop: 06/16/21 00:33 Sodium Chloride (Nss 1000ml) 1,000 mls @ 100 mls/hr IV .Q10H [facility] Stop: 06/16/21 06:00 Last Admin: 06/15/21 13:39 Dose: 100 mls/hr Documented by: Promethazine HCl 12.5 mg/ (Sodium Chloride) 50.5 mls @ 202 mls/hr IV Q6H PRN PRN Reason: Nausea &/or Vomiting Stop: 07/15/21 12:35 Acetaminophen (Ofirmev) 1,000 mg in 100 mls @ 400 mls/hr IV Q8H PRN PRN Reason: Pain Rating 1-3 & Pre PT Stop: 06/18/21 12:35 Dexamethasone 6 mg/ Syringe 1.5 mls @ 1 mls/min IV Q8H [facility] Stop: 06/16/21 06:02 Influenza Virus Vaccine Quadrival (Do Not Administer Flu Vaccine) 1 ea N/A PRN PRN PRN Reason: Notification Stop: 07/15/21 12:35 Insulin Aspart (Insulin Aspart Per Unit) 0 units SC ACHS [facility]; Protocol Stop: 07/15/21 13:59 Insulin Aspart (Insulin Aspart Per Unit) 0 units SC 0000,0400 [facility]; Protocol Stop: 06/16/21 04:01 Insulin Glargine (Lantus Per Unit Charge) 25 units SQ ONE ONE; Protocol Stop: 06/15/21 14:16 Lisinopril ([facility] 40 Mg Tab) [facility] Stop: 07/16/21 08:59 Lorazepam (Lorazepam 0.5 Mg Tab) 0.5 mg PO Q8H PRN PRN Reason: Sedation/Anxiety Stop: 07/15/21 12:35 Lorazepam (Lorazepam 2 Mg/1 Ml Vial) 0.5 mg IV Q8H PRN PRN Reason: Sedation/Anxiety Stop: 07/15/21 12:35 Magnesium Hydroxide (Magnesium Hydroxide Susp 30 Ml Udc) 30 ml PO Q24H PRN PRN Reason: Constipation Stop: 07/15/21 12:35 Metoclopramide HCl (Metoclopramide Hcl Inj 5 Mg/Ml 2 Ml Vial) 10 mg IV Q6H PRN PRN Reason: Nausea &/or Vomiting Stop: 07/15/21 12:35 Miscellaneous (Carbohydrates For Hypoglycemia ) 15 - 30 gm PO UD PRN PRN Reason: Hypoglycemia Treatment Stop: 07/15/21 14:14 Miscellaneous Information (Pharmacy Glycemic Mgmt Consult) 1 ea N/A UD PRN PRN Reason: Consult Stop: 07/15/21 12:35 Naloxone HCl (Naloxone Hcl 0.4 Mg/1 Ml Vial/Carp) 0.1 mg IV Q5M PRN PRN Reason: Oversedation/Resp depression Stop: 07/15/21 12:35 Ondansetron HCl (Ondansetron Inj 2 Mg/Ml 2 Ml Vial) 4 mg IV ONCE PRN PRN Reason: PACU Use Only-Nausea/Vomiting Stop: 06/15/21 16:11 Ondansetron HCl (Ondansetron Inj 2 Mg/Ml 2 Ml Vial) 4 mg IV Q6H PRN PRN Reason: Nausea &/or Vomiting Stop: 07/15/21 12:35 Ondansetron HCl (Ondansetron 4 Mg Od Tab) 4 mg PO Q6H PRN PRN Reason: Nausea Stop: 07/15/21 12:35 Oxycodone HCl (Oxycodone Hcl Ir 5 Mg Tab (Immediate Release)) 5 - 10 mg PO Q4H PRN PRN Reason: Pain & Pre PT Stop: 06/29/21 12:35 Pneumococcal Polyvalent Vaccine (Do Not Administer Pneumococcal Vaccine) 1 ea N/A PRN PRN PRN Reason: Notification Stop: 07/15/21 12:35 Polyethylene Glycol (Polyethylene (Miralax) 17 Gm Pack) 17 gm PO Q6 [facility] Stop: 07/16/21 05:59 Pramipexole Dihydrochloride (Pramipexole Dihydrochlo 0.5 Mg Tab) 1 mg PO HS [facility] Stop: 07/15/21 20:59 Pravastatin Sodium (Pravastatin Sod 40 Mg Tab) 40 mg PO QAM [facility] Stop: 07/16/21 08:59 Senna/Docusate Sodium (Docusate Sodium/Senna 50/8.6mg Tab) 2 tab PO HS [facility] Stop: 07/15/21 20:59 Sodium Biphosphate/Sodium Phosphate (Sod Phosphate/Sod Biphosphate Enema 132 Ml Btl) 132 ml WI ONE PRN PRN Reason: Constipation Stop: 07/15/21 12:35 Sucralfate (Sucralfate 1 Gm Tab) 1 gm PO ACHS PRN PRN Reason: Indigestion Stop: 07/15/21 12:35 Tramadol HCl (Tramadol Hcl 50 Mg Tablet) 50 - 100 mg PO Q4H PRN PRN Reason: Moderate-Severe pain & Pre PT Stop: 07/15/21 12:35 Umeclidinium/Vilanterol (Umeclidinium/Vilanterol 62.5/25mcg 7 Puffs/Inhaler) 1 puffs INH QAM [facility] Stop: 07/16/21 08:59 Vitamin D (Cholecalciferol 1,000 Units 25 Mcg Tab) 1,000 units PO QAM [facility] Stop: 07/16/21 08:59 PG Care Time/CCT Total # of Minutes Spent Total Time Spent with Patient: Total time spent is greater than 50% in coordination of care (as documented) at patient's floor/unit and/or counseling patient:35 Coding Level of Care Code 27572 Inpt Consult Level 4 Diagnoses Neurogenic claudication due to lumbar spinal stenosis M48.062 COPD (chronic obstructive pulmonary disease) J44.9 HTN (hypertension), benign I10 Diabetes mellitus type 2 in obese E11.69; E66.9 Hyperlipidemia E78.5 Esophageal dysmotility K22.4 S/P lumbar spine operation Z98.890 Time Spent (min) 58
[2021-06-15] MEDS ORDERED: INSULIN ASPART PER UNIT SC SCH (14:00)
[2021-06-15] MEDS ORDERED: GLUCOSE 40% GEL 15 GM TUBE PO PRN (14:15)
[2021-06-15] MEDS ORDERED: DEXTROSE 50% 50 ML SYRINGE IV PRN (14:15)
[2021-06-15] MEDS ORDERED: CARBOHYDRATES FOR HYPOGLYCEMIA PO PRN (14:15)
[2021-06-15] MEDS ORDERED: LANTUS PER UNIT CHARGE SQ ONE (14:15)
[2021-06-15] MEDS ORDERED: GLUCOSE 10 TABS/TUBE PO PRN (14:15)
[2021-06-15] MEDS ORDERED: GLUCAGON FOR INJ 1 MG VIAL IM PRN (14:15)
[2021-06-15] MEDS: GABAPENTIN 600 MG TAB PO SCH ×2 (14:37→21:31)
[2021-06-15] MEDS: dexAMETHasone 6 MG in SYRINGE 0 ML IV SCH ×2 (14:37→21:31)
--- NOTE | 2021-06-15 14:45 | Pharmacy Report ---
Pharmacy Glycemic Short Note 2 - Date of Service June 15, 2021 - Glycemic Short BSG Results (Last 24 hours): 06/15/21 06/15/21 06:56 13:29 POC Glucose 142 H 165 H OUTPATIENT ANTIDIABETIC REGIMEN: * Metformin 1000 mg PO BIDM * HbA1c pending ASSESSMENT: * Silvia is POD #0 s/p lumbar decompression and spinal fusion. Pharmacy has been consulted to assist with inpatient glycemic management. * T2DM as an outpatient managed on Metformin monotherapy. Has been ordered a T2DM diet as well as Dexamethasone 6 mg IV every 8 hours x 3 doses post- operatively. * Pre-op BSG was 142 mg/dL while post-op BSG was 165 mg/dL. Given addition of steroids for 24 hours, decided to give a one time Lantus dose to help with steroid induced hyperglycemia. * Novolog will be based on weight and stress of three until steroids wear off. * Will target a goal BSG of 110-140 mg/dL to promote wound healing and prevent infection PLAN FOR INPATIENT GLYCEMIC CONTROL: * Hold outpatient oral diabetes medications * Basal insulin * Lantus 25 units SQ x 1 * Bolus insulin * NovoLog per scale ACHS or Q6hrs while NPO * Goal Range: Low 110 mg/dL - High 140 mg/dL * Correction Factor: 20 mg/dL/unit * Nutritional / Prandial insulin per carb ratio of 1 unit per 7 grams CHO consumed PLAN FOR DISCHARGE: * TBD
[2021-06-15] MEDS: metFORMIN HCL 500 MG TAB PO SCH (16:53)
[2021-06-15] MEDS: ceFAZolin 2000MG 2,000 MG/15 ML SYR IV SCH ×2 (16:53→22:17)
[2021-06-15] MEDS: FENOFIBRATE NANOCRYSTALLIZED 145 MG TABLET PO SCH (21:29)
[2021-06-15] MEDS: FAMOTIDINE 20 MG TAB PO SCH (21:29)
[2021-06-15] MEDS: DOCUSATE SODIUM/SENNA 50/8.6MG TAB PO SCH (21:30)
[2021-06-15] MEDS: PRAMIPEXOLE DIHYDROCHLO 0.5 MG TAB PO SCH (21:30)
[2021-06-15] MEDS: traMADol HCL 50 MG TABLET PO PRN (22:17)
[2021-06-15] MEDS: NICOTINE 21 MG/24 HR TDSY TD SCH (22:17)
[2021-06-16] MEDS ORDERED: INSULIN ASPART PER UNIT SC SCH
[2021-06-16] MEDS: ACETAMINOPHEN 500 MG TAB PO PRN (04:10)
[2021-06-16] MEDS: dexAMETHasone 6 MG in SYRINGE 0 ML IV SCH (05:39)
[2021-06-16] MEDS: POLYETHYLENE (MIRALAX) 17 GM PACK PO SCH ×3 (05:40→16:58)
[2021-06-16 08:08] LABS: Basophils # (auto) 0.01 K/uL (0-0.2); Basophils % (auto) 0.1 %; Hematocrit (blood only) 36.1 % (37-47); Hemoglobin 11.6 g/dL (12.0-16.0); Immature Granulocytes # (auto) 0.03 K/uL (0.00-0.02); Immature Granulocytes % (auto) 0.3 %; Lymphocytes # (auto) 0.48 K/uL (1.2-3.4); Lymphocytes % (auto) 4.3 %; Mean Corpuscular Hemoglobin 29.4 pg (25-34); Mean Corpuscular Hgb Conc 32.1 g/dL (32-36); Mean Corpuscular Volume 91.4 fL (80-100); Mean Platelet Volume 10.6 fL (7.4-10.4); Monocytes # (auto) 0.57 K/uL (0.11-0.59); Monocytes % (auto) 5.1 %; Neutrophils % (auto) 90.2 %; Platelet Count 279 K/uL (130-400); RDW Coefficient of Variation 14.5 % (11.5-14.5); Red Blood Count 3.95 M/uL (4.2-5.4); White Blood Count 11.09 K/uL (4.8-10.8)
[2021-06-16] MEDS: dilTIAZem HCL 180 MG CAPCR PO SCH (08:15)
[2021-06-16] MEDS: DULoxetine HCL 30 MG CAP PO SCH (08:15)
[2021-06-16] MEDS: metFORMIN HCL 500 MG TAB PO SCH ×3 (08:15→16:58)
[2021-06-16] MEDS: PRAVASTATIN SOD 40 MG TAB PO SCH (08:15)
[2021-06-16] MEDS: GABAPENTIN 600 MG TAB PO SCH ×3 (08:15→20:46)
[2021-06-16] MEDS: FAMOTIDINE 20 MG TAB PO SCH ×2 (08:16→20:46)
[2021-06-16] MEDS: NICOTINE 21 MG/24 HR TDSY TD SCH (08:16)
[2021-06-16] MEDS: CYANOCOBALAMIN (B-12) 500 MCG TABLET PO SCH (08:16)
[2021-06-16] MEDS: lisinopril 40 MG TAB PO SCH (08:16)
[2021-06-16] MEDS: hydroCHLOROthiazide 25 MG TAB PO SCH (08:16)
[2021-06-16] MEDS: DULoxetine HCL 60 MG CAP PO SCH (08:16)
[2021-06-16] MEDS: UMECLIDINIUM/VILANTEROL 62.5/25MCG 7 PUFFS/INHALER INH SCH (08:17)
[2021-06-16] MEDS: CHOLECALCIFEROL 1,000 UNITS 25 MCG TAB PO SCH (08:17)
[2021-06-16] MEDS: oxyCODONE HCL IR 5 MG TAB (IMMEDIATE RELEASE) PO PRN ×2 (08:23→17:01)
[2021-06-16 08:38] LABS: BUN Creatinine Ratio 15.9 (10-20); Calcium 8.6 mg/dl (8.5-10.1); Est GFR (African American) 80.6 ml/min; Est GFR (Non-African American) 69.5 ml/min; Potassium 4.1 mmol/L (3.5-5.1)
[2021-06-16] MEDS ORDERED: UMECLIDINIUM/VILANTEROL 62.5/25MCG 7 PUFFS/INHALER INH SCH (09:00)
[2021-06-16 09:04] LABS: Estimated Average Glucose 194 mg/dl; Hemoglobin A1C 8.4 % (4.5-5.6)
--- NOTE | 2021-06-16 11:54 | Orthopedic Progress Note ---
Date of Service June 16, 2021 Assessment & Plan (1) Neurogenic claudication due to lumbar spinal stenosis: Plan: At this time initiate physical therapy monitor TIFFANY operatively discharge home next few days. Admission and Anticipated Discharge Date Admission Date: June 15, 2021 Subjective Back pain controlled leg pain markedly improved Physical Exam Physical Exam: Patient has good strength testing appears comfortable. Results & Data ([facility]) Vital Signs (Past 12 Hours) Vital Signs Temp Pulse Pulse Resp BP Pulse Ox 06/16/21 07:59 36.8 C 82 16 173/80 H 92 06/16/21 03:51 69 18 91 06/16/21 03:09 37.5 C 90 17 150/78 H 92
[2021-06-16] MEDS ORDERED: ALBUTEROL HFA 8 GM INHALER INH SCH (17:00)
[2021-06-16] MEDS: ALBUTEROL HFA 8 GM INHALER INH SCH (19:42)
--- NOTE | 2021-06-16 20:35 | Hospitalist Progress Note ---
Date of Service June 16, 2021 Assessment & Plan (1) Neurogenic claudication due to lumbar spinal stenosis: Plan: POD #1 s/p extensive lumbar decompression with fusion of T12 to S1. She is doing well from orthopedic/spine perspective with significantly improved back/leg pain. Did receive post-op steroids per ortho. Cont pain control per ortho. Dispo per ortho. (2) S/P lumbar spine operation: Plan: Management as per Dr. Stallworth. Ambulate as tolerated. DVT prophylaxis as per Dr. Stallworth. Continue Cymbalta. Continue Gabapentin as previous. CBC, BMP wnl. (3) COPD (chronic obstructive pulmonary disease): Plan: Significant wheezing on exam today. Schedule her albuterol 2 puffs QID. Continue maintenance inhalers. May need 2-step before discharge as O2 sats are borderline low at rest. Fortunately she seems VERY motivated to stay smoke-free post-discharge. (4) HTN (hypertension), benign: Plan: Controlled. Continue Diltiazem CD 180 mg daily. Continue Lisinopril 40 mg daily. Continue Hydrochlorothiazide 25 mg daily. BMP is stable today. (5) Diabetes mellitus type 2 in obese: Plan: Hemoglobin A1c 11/09/2020 was elevated at 8.6%. 8.4% a1c this admission. Patient refuses sliding scale insulin for coverage because she had a adverse reaction to it the last time she was here. Pharmacy Glycemic consult was placed by Dr Stallworth - they advised metformin 500mg TID in light of her refusal to use insulin. At discharge would increase to 1000mg BID and consider sulfonylurea vs januvia as well. (6) Hyperlipidemia: Plan: Continue Pravastatin 40 mg daily. Continue Fenofibrate 134 mg daily. (7) Esophageal dysmotility: Plan: History of GERD and Schatzki's ring. She is followed by Gastroenterology. Continue Protonix 40 mg b.i.d. Continue Carafate 1 g before meals and at bedtime prn. No issues today. Plan: ordered an additional incentive johnny + flutter valve will follow Admission and Anticipated Discharge Date Admission Date: June 15, 2021 Subjective pt states her back pain "is doing great" and her radicular pain of her legs is resolved she is very pleased with the results of her surgery she is eating well passing flatus, no stool yet is coughing and has wheezing - maybe slightly worse than baseline she did state "I'm done smoking!" she mentions her daughter is going to quit tobacco with her Review of Systems Review of Systems: gen - eating well, no fatigue cv - no chest pain or orthopnea pulm - mild cough, no sputum GI - no abd pain or bloating; no nausea today - did have such yesterday Physical Exam Physical Exam: gen - NAD neck - no JVD mouth - MMM heart - RRR, s1 s2, no murmur lungs - diffuse wheezes b/l, no rales; no increased work of breathing abd - soft, NT, ND, BS+ ext - no edema, pulses 2+ b/l neuro - strength b/l legs 5/5 Results & Data Results & Data ([facility]) Vital Signs (Past 12 Hours) Vital Signs Temp Pulse Resp BP Pulse Ox 06/16/21 14:32 36.6 C 84 16 135/75 90 06/16/21 13:38 92 Laboratory Results Laboratory Results - last 24 hr 06/16/21 06/16/21 06/16/21 07:49 07:49 07:49 WBC 11.09 H RBC 3.95 L Hgb 11.6 L Hct 36.1 L MCV 91.4 MCH 29.4 MCHC 32.1 RDW Std Deviation 49.0 H RDW Coeff of [place] 14.5 Plt Count 279 MPV 10.6 H Immature Gran % (Auto) 0.3 Neut % (Auto) 90.2 Lymph % (Auto) 4.3 Mathews % (Auto) 5.1 Eos % (Auto) 0.0 Baso % (Auto) 0.1 Neut # (Auto) 10.00 H Lymph # (Auto) 0.48 L Mathews # (Auto) 0.57 Eos # (Auto) 0.00 Baso # (Auto) 0.01 Immature Gran # (Auto) 0.03 H Sodium 135 L Potassium 4.1 Chloride 99 Carbon Dioxide 28 Anion Gap 8 BUN 13 Creatinine 0.82 Est Cr Clr Drug Dosing 59.0 Est GFR ( Amer) 80.6 Est GFR (Non-Af Amer) 69.5 BUN/Creatinine Ratio 15.9 Glucose 206 H POC Glucose Estimat Average Glucose Hemoglobin A1c Calcium 8.6 Hepatitis C Ab Screen Pending 06/16/21 06/16/21 06/16/21 07:49 08:19 12:15 WBC RBC Hgb Hct MCV MCH MCHC RDW Std Deviation RDW Coeff of [place] Plt Count MPV Immature Gran % (Auto) Neut % (Auto) Lymph % (Auto) Mathews % (Auto) Eos % (Auto) Baso % (Auto) Neut # (Auto) Lymph # (Auto) Mathews # (Auto) Eos # (Auto) Baso # (Auto) Immature Gran # (Auto) Sodium Potassium Chloride Carbon Dioxide Anion Gap BUN Creatinine Est Cr Clr Drug Dosing Est GFR ( Amer) Est GFR (Non-Af Amer) BUN/Creatinine Ratio Glucose POC Glucose 197 H 293 H Estimat Average Glucose 194 Hemoglobin A1c 8.4 H Calcium Hepatitis C Ab Screen 06/16/21 17:06 WBC RBC Hgb Hct MCV MCH MCHC RDW Std Deviation RDW Coeff of [place] Plt Count MPV Immature Gran % (Auto) Neut % (Auto) Lymph % (Auto) Mathews % (Auto) Eos % (Auto) Baso % (Auto) Neut # (Auto) Lymph # (Auto) Mathews # (Auto) Eos # (Auto) Baso # (Auto) Immature Gran # (Auto) Sodium Potassium Chloride Carbon Dioxide Anion Gap BUN Creatinine Est Cr Clr Drug Dosing Est GFR ( Amer) Est GFR (Non-Af Amer) BUN/Creatinine Ratio Glucose POC Glucose 237 H Estimat Average Glucose Hemoglobin A1c Calcium Hepatitis C Ab Screen PG Care Time/CCT Total # of Minutes Spent Total Time Spent with Patient: Total time spent is greater than 50% in coordination of care (as documented) at patient's floor/unit and/or counseling patient: Coding Level of Care Code 10537 Subseq Hosp Care Lvl 2 Diagnoses Neurogenic claudication due to lumbar spinal stenosis M48.062 S/P lumbar spine operation Z98.890 COPD (chronic obstructive pulmonary disease) J44.9 HTN (hypertension), benign I10 Diabetes mellitus type 2 in obese E11.69; E66.9 Hyperlipidemia E78.5 Esophageal dysmotility K22.4
[2021-06-16] MEDS: FENOFIBRATE NANOCRYSTALLIZED 145 MG TABLET PO SCH (20:46)
[2021-06-16] MEDS: PRAMIPEXOLE DIHYDROCHLO 0.5 MG TAB PO SCH (20:46)
[2021-06-16] MEDS: DOCUSATE SODIUM/SENNA 50/8.6MG TAB PO SCH (20:47)
[2021-06-16] MEDS: guaiFENesin 600 MG TABCR PO SCH (20:51)
[2021-06-16] MEDS: LORazepam 0.5 MG TAB PO PRN (20:51)
[2021-06-17] MEDS: POLYETHYLENE (MIRALAX) 17 GM PACK PO SCH ×4 (00:03→18:03)
[2021-06-17] MEDS: oxyCODONE HCL IR 5 MG TAB (IMMEDIATE RELEASE) PO PRN ×3 (04:51→20:44)
[2021-06-17 07:31] LABS: BUN Creatinine Ratio 32.1 (10-20); Calcium 8.6 mg/dl (8.5-10.1); Est GFR (African American) 85.6 ml/min; Est GFR (Non-African American) 73.8 ml/min
[2021-06-17] MEDS: ALBUTEROL HFA 8 GM INHALER INH SCH ×4 (07:40→19:26)
[2021-06-17] MEDS: GABAPENTIN 600 MG TAB PO SCH ×3 (07:58→20:47)
[2021-06-17] MEDS: NICOTINE 21 MG/24 HR TDSY TD SCH (07:58)
[2021-06-17] MEDS: dilTIAZem HCL 180 MG CAPCR PO SCH (07:58)
[2021-06-17] MEDS: hydroCHLOROthiazide 25 MG TAB PO SCH (07:58)
[2021-06-17] MEDS: FAMOTIDINE 20 MG TAB PO SCH ×2 (07:58→20:49)
[2021-06-17] MEDS: lisinopril 40 MG TAB PO SCH (07:59)
[2021-06-17] MEDS: CHOLECALCIFEROL 1,000 UNITS 25 MCG TAB PO SCH (07:59)
[2021-06-17] MEDS: DULoxetine HCL 60 MG CAP PO SCH (07:59)
[2021-06-17] MEDS: DULoxetine HCL 30 MG CAP PO SCH (07:59)
[2021-06-17] MEDS: metFORMIN HCL 500 MG TAB PO SCH ×3 (07:59→16:32)
[2021-06-17] MEDS: CYANOCOBALAMIN (B-12) 500 MCG TABLET PO SCH (07:59)
[2021-06-17] MEDS: UMECLIDINIUM/VILANTEROL 62.5/25MCG 7 PUFFS/INHALER INH SCH (08:00)
[2021-06-17] MEDS: PRAVASTATIN SOD 40 MG TAB PO SCH (08:01)
[2021-06-17] MEDS: guaiFENesin 600 MG TABCR PO SCH ×2 (08:04→20:47)
[2021-06-17] MEDS: MAGNESIUM HYDROXIDE SUSP 30 ML UDC PO PRN (12:17)
--- NOTE | 2021-06-17 14:07 | Orthopedic Progress Note ---
Date of Service June 17, 2021 Assessment & Plan (1) Neurogenic claudication due to lumbar spinal stenosis: Plan: At this time we will continue physical therapy monitor her TIFFANY output anticipate discharge home Tuesday. Admission and Anticipated Discharge Date Admission Date: June 15, 2021 Subjective Patient's back pain is controlled leg symptoms markedly improved. Physical Exam Physical Exam: On exam she is distracted testing. Peers comfortable. Results & Data ([facility]) Vital Signs (Past 12 Hours) Vital Signs Temp Pulse Resp BP Pulse Ox 06/17/21 11:49 85 18 89 L 06/17/21 07:41 85 16 95 06/17/21 07:25 36.8 C 78 16 121/71 93
[2021-06-17] MEDS: ACETAMINOPHEN 500 MG TAB PO PRN (16:31)
[2021-06-17] MEDS ORDERED: BUTALBITAL/ACETAMIN/CAFFEINE TAB PO STA (17:08)
[2021-06-17] MEDS: ONDANSETRON 4 MG OD TAB PO PRN (18:10)
[2021-06-17] MEDS: DOCUSATE SODIUM/SENNA 50/8.6MG TAB PO SCH (19:27)
--- NOTE | 2021-06-17 19:48 | Hospitalist Progress Note ---
Date of Service June 17, 2021 Assessment & Plan (1) Neurogenic claudication due to lumbar spinal stenosis: Plan: POD #2 s/p extensive lumbar decompression with fusion of T12 to S1. She is doing well from orthopedic/spine perspective with significantly improved back/leg pain. Did receive post-op steroids per ortho. Cont pain control per ortho. Dispo per ortho. Finally had BM today! (2) S/P lumbar spine operation: Plan: Management as per Dr. Stallworth. Ambulate as tolerated. DVT prophylaxis as per Dr. Stallworth. Continue Cymbalta. Continue Gabapentin as previous. Most recent CBC, BMP wnl. (3) COPD (chronic obstructive pulmonary disease): Plan: Improved wheezing/symptoms with scheduled albuterol 2 puffs QID. Cont such. Continue maintenance inhalers. May need 2-step before discharge as O2 sats are borderline low at rest at times. Fortunately she seems VERY motivated to stay smoke-free post-discharge. (4) HTN (hypertension), benign: Plan: Controlled. Continue Diltiazem CD 180 mg daily. Continue Lisinopril 40 mg daily. Continue Hydrochlorothiazide 25 mg daily. (5) Diabetes mellitus type 2 in obese: Plan: Hemoglobin A1c 11/09/2020 was elevated at 8.6%. 8.4% a1c this admission. Patient refuses sliding scale insulin for coverage because she had a adverse reaction to it the last time she was here. Pharmacy Glycemic consult was placed by Dr Stallworth - they advised metformin 500mg TID in light of her refusal to use insulin. At discharge would increase to 1000mg BID and consider sulfonylurea vs januvia as well. (6) Hyperlipidemia: Plan: Continue Pravastatin 40 mg daily. Continue Fenofibrate 134 mg daily. (7) Esophageal dysmotility: Plan: History of GERD and Schatzki's ring. She is followed by Gastroenterology. Continue Protonix 40 mg b.i.d. Continue Carafate 1 g before meals and at bedtime prn. No issues today. (8) Headache: Plan: Chronic, intermittent. Frontal in location. +associated nausea - occasionally will vomit with her headache. some mild phonophobia. Strong family h/o migraines. Current headache is VERY similar to previous headaches. Does state the current headache is worse with standing, but her headaches at home are similar as well. Probable migraine -- fioricet + zofran now. If the positional nature of the headache persists would need to d/w Dr Stallworth a spinal headache from a leak. But, my suspicion for that is very low. Plan: will cont to follow Admission and Anticipated Discharge Date Admission Date: June 15, 2021 Subjective patient sitting in chair holding an ice bag to her forehead states she has a "sinus headache" has these somewhat frequently at home strong family h/o migraines - sibling, others often will have nausea and occasional vomiting with her headache some phonophobia states it is mildly worse with standing but this is not unusual for her chronic headaches at home either otherwise feels good back pain controlled leg pains resolved finally had a BM today Review of Systems Review of Systems: gen - no fever or chills cv - no cp pulm - wheezing improved GI - no vomiting despite headache Physical Exam Physical Exam: gen - uncomfortable due to headache neck - no JVD mouth - MMM heart - RRR, s1 s2, no murmur lungs - diffuse wheezes MUCH improved today; more clear, better airation; no rales; no increased work of breathing abd - soft, NT, ND, BS+ ext - no edema, pulses 2+ b/l neuro - strength b/l legs 5/5 Results & Data Results & Data ([facility]) Vital Signs (Past 12 Hours) Vital Signs Temp Pulse Pulse Resp BP Pulse Ox 06/17/21 19:27 75 18 93 06/17/21 15:41 100 H 18 88 L 06/17/21 15:00 36.8 C 81 16 118/65 91 06/17/21 11:49 85 18 89 L PG Care Time/CCT Total # of Minutes Spent Total Time Spent with Patient: Total time spent is greater than 50% in coordination of care (as documented) at patient's floor/unit and/or counseling patient: Coding Level of Care Code 91729 Subseq Hosp Care Lvl 2 Diagnoses Neurogenic claudication due to lumbar spinal stenosis M48.062 S/P lumbar spine operation Z98.890 COPD (chronic obstructive pulmonary disease) J44.9 HTN (hypertension), benign I10 Diabetes mellitus type 2 in obese E11.69; E66.9 Hyperlipidemia E78.5 Esophageal dysmotility K22.4 Headache R51.9
[2021-06-17] MEDS: FENOFIBRATE NANOCRYSTALLIZED 145 MG TABLET PO SCH (20:46)
[2021-06-17] MEDS: PRAMIPEXOLE DIHYDROCHLO 0.5 MG TAB PO SCH (20:47)
[2021-06-18] MEDS: LORazepam 0.5 MG TAB PO PRN ×2 (03:42→20:03)
[2021-06-18] MEDS: ALBUTEROL HFA 8 GM INHALER INH SCH ×4 (07:00→19:20)
[2021-06-18] MEDS: oxyCODONE HCL IR 5 MG TAB (IMMEDIATE RELEASE) PO PRN ×3 (07:25→20:03)
[2021-06-18] MEDS: hydroCHLOROthiazide 25 MG TAB PO SCH (08:20)
[2021-06-18] MEDS: CHOLECALCIFEROL 1,000 UNITS 25 MCG TAB PO SCH (08:20)
[2021-06-18] MEDS: dilTIAZem HCL 180 MG CAPCR PO SCH (08:20)
[2021-06-18] MEDS: PRAVASTATIN SOD 40 MG TAB PO SCH (08:20)
[2021-06-18] MEDS: FAMOTIDINE 20 MG TAB PO SCH ×2 (08:20→21:18)
[2021-06-18] MEDS: guaiFENesin 600 MG TABCR PO SCH ×2 (08:20→21:18)
[2021-06-18] MEDS: lisinopril 40 MG TAB PO SCH (08:20)
[2021-06-18] MEDS: DULoxetine HCL 60 MG CAP PO SCH (08:21)
[2021-06-18] MEDS: DULoxetine HCL 30 MG CAP PO SCH (08:21)
[2021-06-18] MEDS: CYANOCOBALAMIN (B-12) 500 MCG TABLET PO SCH (08:21)
[2021-06-18] MEDS: GABAPENTIN 600 MG TAB PO SCH ×3 (08:21→21:17)
[2021-06-18] MEDS: metFORMIN HCL 500 MG TAB PO SCH ×3 (08:21→17:24)
[2021-06-18] MEDS: UMECLIDINIUM/VILANTEROL 62.5/25MCG 7 PUFFS/INHALER INH SCH (08:24)
[2021-06-18] MEDS: NICOTINE 21 MG/24 HR TDSY TD SCH (08:24)
[2021-06-18] MEDS: ONDANSETRON 4 MG OD TAB PO PRN ×2 (08:25→17:24)
--- NOTE | 2021-06-18 08:48 | Orthopedic Progress Note ---
Date of Service June 18, 2021 Assessment & Plan (1) S/P lumbar spine operation: Plan: I will work on controlling her nausea today. Continue with aggressive bowel regimen. DVT prophylaxis is in the form of teds and SCDs. Continue with pain control. Maintain TIFFANY drain due to output. Continue physical therapy and ambulation today. hopefully discharge home tomorrow. (2) Headache: Plan: Resolved Not positional and does not appear to be a spinal headache Admission and Anticipated Discharge Date Admission Date: June 15, 2021 Subjective Silvia is postoperative day 3 T12-L2 decompression instrumented fusion. She complains of nausea starting yesterday. No emesis. She states she had a headache yesterday but this has since resolved. She sitting up in a chair today eating breakfast. She states she had a bowel movement yesterday. TIFFANY drain output last shift was 140 cc with serosanguineous fluid. Yesterday in physical therapy ambulating roughly 250 feet. States leg symptoms are greatly improved and back pain is controlled. Review of Systems Review of Systems: All systems reviewed & are unremarkable except as noted in HPI & below Physical Exam Physical Exam: She sitting up in a chair eating breakfast. She is in no acute distress. Vitals are stable. Strength is intact bilateral lower extremities calves are soft nontender bilateral lower extremities Lumbar dressing is clean dry and intact with functioning TIFFANY drain Results & Data ([facility]) Vital Signs (Past 12 Hours) Vital Signs Temp Pulse Pulse Resp BP Pulse Ox 06/18/21 07:16 36.5 C 81 18 136/81 93 06/18/21 07:01 76 17 95 06/17/21 22:47 36.9 C 75 17 136/75 97
[2021-06-18] MEDS: POLYETHYLENE (MIRALAX) 17 GM PACK PO SCH (12:16)
[2021-06-18] MEDS: MAGNESIUM HYDROXIDE SUSP 30 ML UDC PO PRN (17:24)
--- NOTE | 2021-06-18 19:13 | XRay Report ---
XR KUB/Abdomen 1 view CLINICAL HISTORY: severe constipation ,nausea, bloating TECHNIQUE: 1 view of the abdomen was obtained. Comparison: None available at the time of this dictation. FINDINGS: Evaluation of the rectum is limited due to patient positioning. Lung bases are unremarkable. Posterio r fixation hardware is seen. Colonic gas is seen. No definite evidence of impaction. IMPRESSION: No definite evidence of fecal impaction in this limited exam. ACT 112: Negative or not required by law. Electronically signed by: Junito Baxter M.D. 06/18/2021 7:12 PM
[2021-06-18] MEDS ORDERED: bisacodyL 10 MG SUPP PR STA (19:40)
[2021-06-18] MEDS: MELATONIN 3 MG TAB PO SCH (21:17)
[2021-06-18] MEDS: DOCUSATE SODIUM/SENNA 50/8.6MG TAB PO SCH (21:18)
[2021-06-18] MEDS: PRAMIPEXOLE DIHYDROCHLO 0.5 MG TAB PO SCH (21:18)
[2021-06-18] MEDS: FENOFIBRATE NANOCRYSTALLIZED 145 MG TABLET PO SCH (21:18)
--- NOTE | 2021-06-19 04:41 | Hospitalist Progress Note ---
Date of Service June 18, 2021 Assessment & Plan (1) Neurogenic claudication due to lumbar spinal stenosis: Plan: POD #3 s/p extensive lumbar decompression with fusion of T12 to S1. She is doing well from orthopedic/spine perspective with significantly improved back/leg pain. Is having some right lower extremity pain - does sound radicular - is already on gabapentin TID + cymbalta high-dose. Cont pain control per ortho. Dispo per ortho. (2) S/P lumbar spine operation: Plan: Management as per Dr. Stallworth. Ambulate as tolerated. DVT prophylaxis as per Dr. Stallworth. Continue Cymbalta. Continue Gabapentin as previous. Most recent CBC, BMP wnl. Repeat labs in am due to abdominal issues. (3) COPD (chronic obstructive pulmonary disease): Plan: WITH EXACERBATION. Cont scheduled albuterol qid. Cont pulmonary toilet. Defer on steroids for now but consider such with any worsening. (4) HTN (hypertension), benign: Plan: Controlled. Continue Diltiazem CD 180 mg daily. Continue Lisinopril 40 mg daily. Continue Hydrochlorothiazide 25 mg daily. Check bmp/mag in am. (5) Diabetes mellitus type 2 in obese: Plan: Hemoglobin A1c 11/09/2020 was elevated at 8.6%. 8.4% a1c this admission. Patient refuses sliding scale insulin for coverage because she had a adverse reaction to it the last time she was here. Pharmacy Glycemic consult was placed by Dr Stallworth - they advised metformin 500mg TID in light of her refusal to use insulin. At discharge would increase to 1000mg BID and consider sulfonylurea vs januvia as well. (6) Hyperlipidemia: Plan: Continue Pravastatin 40 mg daily. Continue Fenofibrate 134 mg daily. (7) Esophageal dysmotility: Plan: History of GERD and Schatzki's ring. She is followed by Gastroenterology. Continue Protonix 40 mg b.i.d. Continue Carafate 1 g before meals and at bedtime prn. Did have vomiting with nausea today -- check a KUB x-ray, r/o ileus or impaction. (8) Headache: Plan: acute/chronic yesterday - acute headache resolved; has not recurred. was likely a migraine (9) Restless leg syndrome: Plan: patient already on ropinirole at HS check Fe studies in am - Fe def can make RLS much worse cont gabapentin - this helps RLS as well (10) Abdominal distension: Plan: check KUB x-ray - r/o ileus, r/o impaction bowel regimen -- miralax + senna (11) Acute blood loss anemia: Plan: most recent Hb - about 3 gm drop from baseline repeat a CBC for stability in am along with FE studies Plan: will cont to follow Admission and Anticipated Discharge Date Admission Date: June 15, 2021 Subjective pt c/o nausea states she "barely ate today" but nursing staff report that she indeed did eat had 1 episode of a very small amount of emesis feels bloated in abdomen; not passing much gas still with cough but denies dyspnea today no chest pain she also c/o pain in her right leg extending from the right lower back into the right lateral thigh also feels she is having "restless legs" Review of Systems Review of Systems: gen - no fevers pulm - no sputum, no dyspnea at rest, still w/ wheezing GI - no pain but bloating cv - no orthopnea Physical Exam Physical Exam: gen - uncomfortable appearing, holding her right leg neck - no JVD mouth - MMM heart - RRR, s1 s2, no murmur lungs - wheezes b/l; I asked her to cough - they did improve with such; scattered rales; no increased work of breathing abd - soft, NT, BS+, mildly distended ext - no edema, pulses 2+ b/l neuro - strength b/l legs 5/5 Results & Data Results & Data ([facility]) Vital Signs (Past 12 Hours) Vital Signs Temp Pulse Resp BP Pulse Ox 06/18/21 22:14 37.2 C 83 18 113/70 93 06/18/21 19:21 90 20 88 L PG Care Time/CCT Total # of Minutes Spent Total Time Spent with Patient: Total time spent is greater than 50% in coordination of care (as documented) at patient's floor/unit and/or counseling patient: Coding Level of Care Code 57479 Subseq Hosp Care Lvl 3 Diagnoses Neurogenic claudication due to lumbar spinal stenosis M48.062 S/P lumbar spine operation Z98.890 COPD (chronic obstructive pulmonary disease) J44.1 COPD type: COPD with acute exacerbation HTN (hypertension), benign I10 Diabetes mellitus type 2 in obese E11.69; E66.9 Hyperlipidemia E78.5 Esophageal dysmotility K22.4 Headache R51.9 Restless leg syndrome G25.81 Abdominal distension R14.0 Acute blood loss anemia D62 (1) COPD (chronic obstructive pulmonary disease) COPD type: COPD with acute exacerbation Qualified Code(s): J44.1 - Chronic obstructive pulmonary disease with (acute) exacerbation
[2021-06-19 06:52] LABS: Hematocrit (blood only) 35.2 % (37-47); Hemoglobin 11.7 g/dL (12.0-16.0); Mean Corpuscular Hemoglobin 29.8 pg (25-34); Mean Corpuscular Hgb Conc 33.2 g/dL (32-36); Mean Corpuscular Volume 89.8 fL (80-100); Mean Platelet Volume 9.9 fL (7.4-10.4); Platelet Count 354 K/uL (130-400); RDW Coefficient of Variation 14.3 % (11.5-14.5); RDW Standard Deviation 47.3 fL (36.4-46.3); Red Blood Count 3.92 M/uL (4.2-5.4); White Blood Count 9.07 K/uL (4.8-10.8)
[2021-06-19 07:25] LABS: BUN Creatinine Ratio 26.8 (10-20); Creatinine Clr Calc Pharmacy 58.1 ml/min; Magnesium 2.2 mg/dl (1.7-2.4); Potassium 4.4 mmol/L (3.5-5.1)
[2021-06-19] MEDS: ALBUTEROL HFA 8 GM INHALER INH SCH ×4 (07:36→19:05)
[2021-06-19] MEDS: hydroCHLOROthiazide 25 MG TAB PO SCH (08:13)
[2021-06-19] MEDS: DULoxetine HCL 60 MG CAP PO SCH (08:13)
[2021-06-19] MEDS: guaiFENesin 600 MG TABCR PO SCH ×2 (08:14→20:29)
[2021-06-19] MEDS: CHOLECALCIFEROL 1,000 UNITS 25 MCG TAB PO SCH (08:15)
[2021-06-19] MEDS: PRAVASTATIN SOD 40 MG TAB PO SCH (08:15)
[2021-06-19] MEDS: dilTIAZem HCL 180 MG CAPCR PO SCH (08:16)
[2021-06-19] MEDS: lisinopril 40 MG TAB PO SCH (08:16)
[2021-06-19] MEDS: POLYETHYLENE (MIRALAX) 17 GM PACK PO SCH (08:16)
[2021-06-19] MEDS: GABAPENTIN 600 MG TAB PO SCH ×3 (08:17→20:28)
[2021-06-19] MEDS: DULoxetine HCL 30 MG CAP PO SCH (08:17)
[2021-06-19] MEDS: metFORMIN HCL 500 MG TAB PO SCH ×3 (08:18→17:01)
[2021-06-19] MEDS: NICOTINE 21 MG/24 HR TDSY TD SCH (08:19)
[2021-06-19] MEDS: UMECLIDINIUM/VILANTEROL 62.5/25MCG 7 PUFFS/INHALER INH SCH (08:20)
[2021-06-19] MEDS: CYANOCOBALAMIN (B-12) 500 MCG TABLET PO SCH (08:21)
[2021-06-19] MEDS: FAMOTIDINE 20 MG TAB PO SCH ×2 (08:22→20:28)
[2021-06-19] MEDS: oxyCODONE HCL IR 5 MG TAB (IMMEDIATE RELEASE) PO PRN ×2 (12:00→19:49)
--- NOTE | 2021-06-19 12:12 | Orthopedic Progress Note ---
Date of Service June 19, 2021 Assessment & Plan (1) Neurogenic claudication due to lumbar spinal stenosis: Plan: At this time we will continue therapy as tolerated. We will advance her bowel regimen. Maintain the TIFFANY drain another 24 hours. Admission and Anticipated Discharge Date Admission Date: June 15, 2021 Subjective Patient complains of back pain. She still has not had a bowel movement yet. She is struggling with some nausea. Physical Exam Physical Exam: On exam she is neurologic intact she is in bed. She does appear uncomfortable. Results & Data ([facility]) Vital Signs (Past 12 Hours) Vital Signs Temp Pulse Pulse Pulse Resp BP Pulse Ox 06/19/21 11:02 85 20 93 06/19/21 08:06 81 18 130/78 91 06/19/21 07:37 77 18 89 L 06/19/21 07:19 36.9 C 82 18 121/80 91
[2021-06-19] MEDS: MELATONIN 3 MG TAB PO SCH (20:28)
[2021-06-19] MEDS: FENOFIBRATE NANOCRYSTALLIZED 145 MG TABLET PO SCH (20:28)
[2021-06-19] MEDS: PRAMIPEXOLE DIHYDROCHLO 0.5 MG TAB PO SCH (20:28)
[2021-06-19] MEDS: DOCUSATE SODIUM/SENNA 50/8.6MG TAB PO SCH (20:29)
[2021-06-19] MEDS ORDERED: PANTOprazole 40 MG TAB PO STA (21:05)
--- NOTE | 2021-06-19 21:05 | Hospitalist Progress Note ---
Date of Service June 19, 2021 Assessment & Plan (1) Neurogenic claudication due to lumbar spinal stenosis: Plan: POD #4 s/p extensive lumbar decompression with fusion of T12 to S1. She is doing well from orthopedic/spine perspective with significantly improved back/leg pain. Right lower extremity pain today is improved. Cont pain control per ortho. Dispo per ortho. (2) S/P lumbar spine operation: Plan: Management as per Dr. Stallworth. Ambulate as tolerated. DVT prophylaxis as per Dr. Stallworth. Continue Cymbalta. Continue Gabapentin as previous. (3) COPD (chronic obstructive pulmonary disease): Plan: WITH EXACERBATION. Cont scheduled albuterol qid. Cont pulmonary toilet. Defer on steroids for now but consider such with any worsening. Ths exacerbation is improved. (4) HTN (hypertension), benign: Plan: Controlled. Continue Diltiazem CD 180 mg daily. Continue Lisinopril 40 mg daily. Continue Hydrochlorothiazide 25 mg daily. Check bmp/mag in am. (5) Diabetes mellitus type 2 in obese: Plan: Hemoglobin A1c 11/09/2020 was elevated at 8.6%. 8.4% a1c this admission. Patient refuses sliding scale insulin for coverage because she had a adverse reaction to it the last time she was here. Pharmacy Glycemic consult was placed by Dr Stallworth - they advised metformin 500mg TID in light of her refusal to use insulin. At discharge would increase to 1000mg BID and consider sulfonylurea vs januvia as well. (6) Hyperlipidemia: Plan: Continue Pravastatin 40 mg daily. Continue Fenofibrate 134 mg daily. (7) Esophageal dysmotility: Plan: History of GERD and Schatzki's ring. She is followed by Gastroenterology. Patient reports she has a f/u with [facility] [place] after discharge to discuss her chronic nausea, emesis, GI intolerance, etc. Continue Protonix 40 mg daily Continue Carafate 1 g before meals and at bedtime prn. Of note - KUB x-ray without ileus or obstruction. Bowel regimen for severe constipation. (8) Headache: Plan: acute/chronic - acute headache resolved; has not recurred. was likely a migraine (9) Restless leg syndrome: Plan: patient already on ropinirole at HS Fe studies wnl cont gabapentin - this helps RLS as well (10) Abdominal distension: Plan: cont bowel regimen her abdomen is soft today KUB x-rays noted (11) Acute blood loss anemia: Plan: about 3 gm drop from baseline Hb stable today (12) Hyponatremia: Plan: 2nd to vomiting, poor oral intake at times? repeat BMP am if any worsening - check serum and urine osm, urine Na Plan: will cont to follow Admission and Anticipated Discharge Date Admission Date: June 15, 2021 Subjective patient states she is "feeling a lot better today" oddly, despite her saying such, she reports vomiting after each meal and "filling the garbage can" nursing flowsheets show she has eaten 75% of every meal today did have moderate BM yesterday evening s/p suppository she is concerned she has not been able to have a BM today; however, she has told me several times this week that "normally I don't go but every 10 days at home" she is not passing flatus she has nausea RLE pain is improved moving her legs better today Review of Systems Review of Systems: gen - no fever cv - no cp, no orthopnea pulm - no dyspnea at rest, mild cough/wheeze GI - no pain but bloated, constipated Physical Exam Physical Exam: gen - does indeed look much better today neck - no JVD mouth - MMM heart - RRR, s1 s2, no murmur lungs - only mild wheezes b/l today, otherwise CTA b/l abd - soft, NT, BS+, nondistended ext - no edema, pulses 2+ b/l neuro - strength b/l legs 5/5 Results & Data Results & Data ([facility]) Vital Signs (Past 12 Hours) Vital Signs Temp Pulse Resp BP Pulse Ox 06/19/21 19:06 80 18 94 06/19/21 15:39 36.5 C 74 18 111/65 96 06/19/21 15:19 78 18 93 06/19/21 14:39 94 06/19/21 11:02 85 20 93 Laboratory Results Laboratory Results - last 24 hr 06/19/21 06/19/21 06/19/21 06:22 06:22 20:47 WBC 9.07 RBC 3.92 L Hgb 11.7 L Hct 35.2 L MCV 89.8 MCH 29.8 MCHC 33.2 RDW Std Deviation 47.3 H RDW Coeff of [place] 14.3 Plt Count 354 MPV 9.9 Sodium 132 L Potassium 4.4 Chloride 92 L Carbon Dioxide 34 H Anion Gap 6 BUN 22 Creatinine 0.82 Est Cr Clr Drug Dosing 58.1 Est GFR ( Amer) 80.0 Est GFR (Non-Af Amer) 69.0 BUN/Creatinine Ratio 26.8 H Glucose 167 H POC Glucose 240 H Calcium 9.0 Magnesium 2.2 Iron 51 TIBC 294 Unsaturated IBC 243 Transferrin % Sat 17 Ferritin 97.0 Diagnostic Findings KUB x-ray -- 06/18: FINDINGS: Evaluation of the rectum is limited due to patient positioning. Lung bases are unremarkable. Posterior fixation hardware is seen. Colonic gas is seen. No definite evidence of impaction. IMPRESSION: No definite evidence of fecal impaction in this limited exam. PG Care Time/CCT Total # of Minutes Spent Total Time Spent with Patient: Total time spent is greater than 50% in coordination of care (as documented) at patient's floor/unit and/or counseling patient: Coding Level of Care Code 91676 Subseq Hosp Care Lvl 2 Diagnoses Neurogenic claudication due to lumbar spinal stenosis M48.062 S/P lumbar spine operation Z98.890 COPD (chronic obstructive pulmonary disease) J44.1 COPD type: COPD with acute exacerbation HTN (hypertension), benign I10 Diabetes mellitus type 2 in obese E11.69; E66.9 Hyperlipidemia E78.5 Esophageal dysmotility K22.4 Headache R51.9 Restless leg syndrome G25.81 Abdominal distension R14.0 Acute blood loss anemia D62 Hyponatremia E87.1 (1) COPD (chronic obstructive pulmonary disease) COPD type: COPD with acute exacerbation Qualified Code(s): J44.1 - Chronic obstructive pulmonary disease with (acute) exacerbation
[2021-06-20] MEDS: oxyCODONE HCL IR 5 MG TAB (IMMEDIATE RELEASE) PO PRN ×3 (06:16→20:39)
[2021-06-20] MEDS: ALBUTEROL HFA 8 GM INHALER INH SCH ×4 (07:16→19:06)
[2021-06-20] MEDS: PANTOprazole 40 MG TAB PO SCH (08:07)
[2021-06-20] MEDS: SENNA 8.6 MG TAB PO SCH (08:07)
[2021-06-20] MEDS: GABAPENTIN 600 MG TAB PO SCH ×3 (08:08→20:41)
[2021-06-20] MEDS: guaiFENesin 600 MG TABCR PO SCH ×2 (08:08→20:41)
[2021-06-20] MEDS: FAMOTIDINE 20 MG TAB PO SCH ×2 (08:08→20:42)
[2021-06-20] MEDS: CHOLECALCIFEROL 1,000 UNITS 25 MCG TAB PO SCH (08:09)
[2021-06-20] MEDS: DULoxetine HCL 60 MG CAP PO SCH (08:09)
[2021-06-20] MEDS: CYANOCOBALAMIN (B-12) 500 MCG TABLET PO SCH (08:10)
[2021-06-20] MEDS: POLYETHYLENE (MIRALAX) 17 GM PACK PO SCH (08:10)
[2021-06-20] MEDS: DULoxetine HCL 30 MG CAP PO SCH (08:10)
[2021-06-20] MEDS: metFORMIN HCL 500 MG TAB PO SCH ×3 (08:10→16:34)
[2021-06-20] MEDS: NICOTINE 21 MG/24 HR TDSY TD SCH (08:11)
[2021-06-20] MEDS: dilTIAZem HCL 180 MG CAPCR PO SCH (08:13)
[2021-06-20] MEDS: PRAVASTATIN SOD 40 MG TAB PO SCH (08:13)
--- NOTE | 2021-06-20 08:24 | Orthopedic Progress Note ---
Date of Service June 20, 2021 Assessment & Plan (1) Neurogenic claudication due to lumbar spinal stenosis: Plan: At this time initiate physical therapy monitor TIFFANY output possible discharge home tomorrow. Admission and Anticipated Discharge Date Admission Date: June 15, 2021 Subjective Patient had a bowel movement yesterday for she feels much better. Still bit of upset stomach but overall improved. She is walking better yesterday. Physical Exam Physical Exam: On exam her abdomen is soft. She strength lower extremities. Results & Data ([facility]) Vital Signs (Past 12 Hours) Vital Signs Temp Pulse Resp BP Pulse Ox 06/20/21 07:38 36.5 C 80 16 91/59 L 91 06/20/21 07:17 60 18 90 06/20/21 04:20 74 103/63 06/19/21 22:33 37.1 C 78 18 87/51 L 91
[2021-06-20] MEDS: traMADol HCL 50 MG TABLET PO PRN (09:12)
--- NOTE | 2021-06-20 09:12 | XRay Report ---
XR lumbar spine 2-3V CLINICAL HISTORY: postop TECHNIQUE: 2 views of the lumbar spine were obtained. Comparison: None available at the time of this dictation. FINDINGS: Posterior lumbar spinal fixation hardware is seen. No evidence of hardware fracture or periarticular lucency. The alignment is anatomic. Vertebral body heights and disc spaces are well maintained. Vasc ular calcifications are noted. IMPRESSION: Posterior lumbar fixation hardware is seen. ACT 112: Negative or not required by law. Electronically signed by: Junito Baxter M.D. 06/20/2021 9:11 AM
[2021-06-20] MEDS: lisinopril 40 MG TAB PO SCH (09:25)
[2021-06-20] MEDS: hydroCHLOROthiazide 25 MG TAB PO SCH (09:25)
[2021-06-20] MEDS: UMECLIDINIUM/VILANTEROL 62.5/25MCG 7 PUFFS/INHALER INH SCH (09:25)
[2021-06-20] MEDS: dexAMETHasone 8 MG in SYRINGE 0 ML IV SCH (09:35)
[2021-06-20 09:36] LABS: Basophils # (auto) 0.02 K/uL (0-0.2); Basophils % (auto) 0.2 %; Eosinophils # (auto) 0.22 K/uL (0-0.5); Eosinophils % (auto) 2.1 %; Hematocrit (blood only) 36.8 % (37-47); Hemoglobin 11.8 g/dL (12.0-16.0); Immature Granulocytes # (auto) 0.31 K/uL (0.00-0.02); Lymphocytes # (auto) 1.39 K/uL (1.2-3.4); Lymphocytes % (auto) 13.5 %; Mean Corpuscular Hemoglobin 29.1 pg (25-34); Mean Corpuscular Hgb Conc 32.1 g/dL (32-36); Mean Corpuscular Volume 90.9 fL (80-100); Mean Platelet Volume 9.7 fL (7.4-10.4); Monocytes # (auto) 0.92 K/uL (0.11-0.59); Monocytes % (auto) 8.9 %; Neutrophils # (auto) 7.43 K/uL (1.4-6.5); Neutrophils % (auto) 72.3 %; Platelet Count 411 K/uL (130-400); RDW Coefficient of Variation 14.3 % (11.5-14.5); RDW Standard Deviation 47.6 fL (36.4-46.3); Red Blood Count 4.05 M/uL (4.2-5.4); White Blood Count 10.29 K/uL (4.8-10.8)
[2021-06-20 10:14] LABS: BUN Creatinine Ratio 26.2 (10-20); Calcium 8.7 mg/dl (8.5-10.1); Creatinine Clr Calc Pharmacy 37.8 ml/min; Est GFR (African American) 47.6 ml/min; Est GFR (Non-African American) 41.1 ml/min; Potassium 4.6 mmol/L (3.5-5.1)
--- NOTE | 2021-06-20 17:37 | Hospitalist Progress Note ---
Date of Service June 20, 2021 Assessment & Plan (1) Neurogenic claudication due to lumbar spinal stenosis: Plan: - POD #4 s/p extensive lumbar decompression with fusion of T12 to S1. - She is doing well from orthopedic/spine perspective with significantly improved back/leg pain. - Right lower extremity pain today is improved. - Cont pain control per ortho. - Dispo per ortho. (2) S/P lumbar spine operation: Plan: -Management as per Dr. Stallworth. - Ambulate as tolerated. - DVT prophylaxis as per Dr. Stallworth. - Continue Cymbalta. -Continue Gabapentin as previous. (3) COPD (chronic obstructive pulmonary disease): Plan: - WITH EXACERBATION. -Cont scheduled albuterol qid. - Cont pulmonary toilet. - Defer on steroids for now but consider such with any worsening. (4) MATT (acute kidney injury): Plan: - Acute Cr elevation from normal baseline ~0.8 to 1.26 - Hctz/Lisinopril held - Suspect prerenal azotemia vs true matt,no tachycardia slightly low BP in AM. PO orals enouraged. On afternoon recheck increased tachycardia with BP 101/58, +NSS bolus and 500cc ~125cc/hr supplement - Trend CBC/BMP (5) HTN (hypertension), benign: Plan: Controlled. Continue Diltiazem CD 180 mg daily. Held Lisinopril 40 mg daily. Held Hydrochlorothiazide 25 mg daily. (6) Diabetes mellitus type 2 in obese: Plan: Hemoglobin A1c 11/09/2020 was elevated at 8.6%. 8.4% a1c this admission. Patient refuses sliding scale insulin for coverage because she had a adverse reaction to it the last time she was here. Pharmacy Glycemic consult was placed by Dr Stallworth - they advised metformin 500mg TID in light of her refusal to use insulin. At discharge would increase to 1000mg BID and consider sulfonylurea vs januvia as well. (7) Hyperlipidemia: Plan: Continue Pravastatin 40 mg daily. Continue Fenofibrate 134 mg daily. (8) Esophageal dysmotility: Plan: History of GERD and Schatzki's ring. She is followed by Gastroenterology. Patient reports she has a f/u with [facility] [place] after discharge to discuss her chronic nausea, emesis, GI intolerance, etc. Continue Protonix 40 mg daily Continue Carafate 1 g before meals and at bedtime prn. Of note - KUB x-ray without ileus or obstruction. Bowel regimen for severe constipation. (9) Headache: Plan: acute/chronic - acute headache resolved; has not recurred. was likely a migraine (10) Restless leg syndrome: Plan: patient already on ropinirole at HS Fe studies wnl cont gabapentin - this helps RLS as well (11) Abdominal distension: Plan: cont bowel regimen her abdomen is soft today KUB x-rays noted (12) Acute blood loss anemia: Plan: about 3 gm drop from baseline Hb stable today (13) Hyponatremia: Plan: 2nd to vomiting, poor oral intake at times? repeat BMP am if any worsening - check serum and urine osm, urine Na Plan: will cont to follow Admission and Anticipated Discharge Date Admission Date: June 15, 2021 Subjective Increased fatigue, some nausea and abdominal discomfort this morning. No chest pain, chest pressure, SoB, dyspnea. +nonproductive cough similar to yesterday. Feels some discomfort at her back unchanged since surgery. Discussed BSG control, pt does no twant insulin but is amenable to januvia for glycemic control. Discussed risks/benefits including transaminitis, rhinosinusitis, MATT, hypoglycemia, N/V/D/C Review of Systems Review of Systems: All systems reviewed & are unremarkable except as noted in Subjective Physical Exam Physical Exam: General: A&Ox3. NAD. Cooperative. Skin: Spinal incision intact, no dehiscence, discharge, exudate. Overlying dressing some some serosanginous tinting. No bleeding. HEENT: Atraumatic, normocephalic. Pulm: CTAB A&P. trace scattered expiratory wheezes, -rales, -rhonchi. Symmetrical chest rise. No increased work of breathing. No respiratory distress. Cardiac: RRR, -mrg. Radial pulses intact and symmetrical. Abdominal: Nontender, nondistended, soft. BS present. Results & Data Results & Data ([facility]) Vital Signs (Past 12 Hours) Vital Signs Temp Pulse Resp BP Pulse Ox 06/20/21 15:29 100 H 18 93 06/20/21 14:49 36.5 C 79 18 101/58 L 93 06/20/21 12:49 94 06/20/21 11:22 75 18 92 06/20/21 11:00 36.4 C L 78 16 94/55 L 93 06/20/21 07:38 36.5 C 80 16 91/59 L 91 06/20/21 07:17 60 18 90 PG Care Time/CCT Total # of Minutes Spent Total Time Spent with Patient: Total time spent is greater than 50% in coordination of care (as documented) at patient's floor/unit and/or counseling patient: Coding Level of Care Code 38088 Subseq Hosp Care Lvl 2 Diagnoses Neurogenic claudication due to lumbar spinal stenosis M48.062 S/P lumbar spine operation Z98.890 COPD (chronic obstructive pulmonary disease) J44.1 COPD type: COPD with acute exacerbation HTN (hypertension), benign I10 Diabetes mellitus type 2 in obese E11.69; E66.9 Hyperlipidemia E78.5 Esophageal dysmotility K22.4 Headache R51.9 Restless leg syndrome G25.81 Abdominal distension R14.0 Acute blood loss anemia D62 Hyponatremia E87.1 MATT (acute kidney injury) N17.9 (1) COPD (chronic obstructive pulmonary disease) COPD type: COPD with acute exacerbation Qualified Code(s): J44.1 - Chronic obstructive pulmonary disease with (acute) exacerbation
[2021-06-20] MEDS ORDERED: SODIUM CHLORIDE 0.9% 1000ML 250 ML IV ONE (17:48)
[2021-06-20] MEDS: SODIUM CHLORIDE 0.9% 1000ML 1,000 ML IV SCH (18:35)
[2021-06-20] MEDS: FENOFIBRATE NANOCRYSTALLIZED 145 MG TABLET PO SCH (20:39)
[2021-06-20] MEDS: DOCUSATE SODIUM/SENNA 50/8.6MG TAB PO SCH (20:41)
[2021-06-20] MEDS: PRAMIPEXOLE DIHYDROCHLO 0.5 MG TAB PO SCH (20:41)
[2021-06-20] MEDS: MELATONIN 3 MG TAB PO SCH (20:41)
[2021-06-21] MEDS: SODIUM CHLORIDE 0.9% 1000ML 1,000 ML IV SCH ×2 (01:28→09:24)
[2021-06-21] MEDS: oxyCODONE HCL IR 5 MG TAB (IMMEDIATE RELEASE) PO PRN ×2 (04:31→09:31)
[2021-06-21 05:13] LABS: Basophils # (auto) 0.01 K/uL (0-0.2); Basophils % (auto) 0.1 %; Eosinophils # (auto) 0.05 K/uL (0-0.5); Eosinophils % (auto) 0.4 %; Hematocrit (blood only) 33.5 % (37-47); Hemoglobin 10.9 g/dL (12.0-16.0); Immature Granulocytes # (auto) 0.15 K/uL (0.00-0.02); Immature Granulocytes % (auto) 1.3 %; Lymphocytes # (auto) 1.25 K/uL (1.2-3.4); Lymphocytes % (auto) 10.6 %; Mean Corpuscular Hemoglobin 29.5 pg (25-34); Mean Corpuscular Hgb Conc 32.5 g/dL (32-36); Mean Corpuscular Volume 90.5 fL (80-100); Mean Platelet Volume 9.6 fL (7.4-10.4); Monocytes # (auto) 1.07 K/uL (0.11-0.59); Monocytes % (auto) 9.1 %; Neutrophils # (auto) 9.22 K/uL (1.4-6.5); Neutrophils % (auto) 78.5 %; Platelet Count 392 K/uL (130-400); RDW Standard Deviation 46.3 fL (36.4-46.3); White Blood Count 11.75 K/uL (4.8-10.8)
[2021-06-21 05:38] LABS: BUN Creatinine Ratio 31.6 (10-20); Calcium 9.2 mg/dl (8.5-10.1); Creatinine Clr Calc Pharmacy 50.1 ml/min; Est GFR (Non-African American) 57.8 ml/min; Potassium 4.9 mmol/L (3.5-5.1)
[2021-06-21] MEDS: FAMOTIDINE 20 MG TAB PO SCH (08:04)
[2021-06-21] MEDS: dexAMETHasone 8 MG in SYRINGE 0 ML IV SCH (08:04)
[2021-06-21] MEDS: guaiFENesin 600 MG TABCR PO SCH (08:04)
[2021-06-21] MEDS: GABAPENTIN 600 MG TAB PO SCH ×2 (08:04→13:11)
[2021-06-21] MEDS: CYANOCOBALAMIN (B-12) 500 MCG TABLET PO SCH (08:05)
[2021-06-21] MEDS: DULoxetine HCL 60 MG CAP PO SCH (08:05)
[2021-06-21] MEDS: metFORMIN HCL 500 MG TAB PO SCH ×2 (08:05→11:23)
[2021-06-21] MEDS: PRAVASTATIN SOD 40 MG TAB PO SCH (08:06)
[2021-06-21] MEDS: SENNA 8.6 MG TAB PO SCH (08:06)
[2021-06-21] MEDS: DULoxetine HCL 30 MG CAP PO SCH (08:06)
[2021-06-21] MEDS: dilTIAZem HCL 180 MG CAPCR PO SCH (08:06)
[2021-06-21] MEDS: UMECLIDINIUM/VILANTEROL 62.5/25MCG 7 PUFFS/INHALER INH SCH (08:07)
[2021-06-21] MEDS: PANTOprazole 40 MG TAB PO SCH (08:07)
[2021-06-21] MEDS: NICOTINE 21 MG/24 HR TDSY TD SCH (08:07)
[2021-06-21] MEDS: CHOLECALCIFEROL 1,000 UNITS 25 MCG TAB PO SCH (08:07)
[2021-06-21] MEDS: POLYETHYLENE (MIRALAX) 17 GM PACK PO SCH (08:07)
[2021-06-21] MEDS: ALBUTEROL HFA 8 GM INHALER INH SCH ×2 (08:20→11:46)
--- NOTE | 2021-06-21 10:58 | Hospitalist Progress Note ---
Date of Service June 21, 2021 Assessment & Plan (1) Current smoker: Plan: Consult for 76 yo F s/p T12 - S1 spinal decompression surgery with Dr. Stallworth. COPD - on room air, has greatly improved with TID duoneb treatments during hospitalization - continue home inhalers - did not require use of steroids - no increased cough/fever/chills HTN - adequately controlled with home regimen DM2 - NIDDM, A1c of 8.4 - patient refusing insulin citing reaction to it previously. - continue metformin Stable, will sign off at this time. (2) COPD (chronic obstructive pulmonary disease): (3) Diabetes mellitus type 2 in obese: Admission and Anticipated Discharge Date Admission Date: June 15, 2021 Supervising Physician Co-Signing Physician Notes chart reviewed, case d/w dr schmidt. discharged by primary team prior to my being able to see her. otherwise as above Subjective Doing well this AM. no complaints of SOB, CP, pain. tolerating diet and ambulation without issue. anxious to be discharged home. Review of Systems Review of Systems: All systems reviewed & are unremarkable except as noted in Subjective Physical Exam Physical Exam: Constitutional: thin, in no apparent distress, sitting comfortably in bed. Eyes: EOMI, pupils equal and reactive bilaterally, no scleral icterus Cardiac: RRR, no murmurs, gallops or rubs. Normal S1, S2 Pulm: CTA BL, no wheezes, rhonchi, crackles or rubs, moving air well throughout both lungs Results & Data Results & Data ([facility]) Vital Signs (Past 12 Hours) Vital Signs Temp Pulse Resp BP Pulse Ox 06/21/21 07:35 36.4 C L 78 16 142/84 H 96 Resident Activity Tracking Resident Involvement: Resident Care Provided Care Provided: Adult Hospital Medicine (1) COPD (chronic obstructive pulmonary disease) COPD type: COPD with acute exacerbation Qualified Code(s): J44.1 - Chronic obstructive pulmonary disease with (acute) exacerbation
--- NOTE | 2021-06-21 11:48 | Discharge Summary ---
Date of Service June 21, 2021 Admission HPI Per Admitting Provider This is a 73-year-old female presents with chronic persistent back and leg pain after failing course of nonoperative care is here for surgical invention. Principal Diagnosis Lumbar spinal stenosis with neurogenic claudication Discharge Data Allergies Allergy/AdvReac Type Severity Reaction Status Date / Time atorvastatin [From Lipitor] Allergy Intermediate Skin Rash Verified 06/15/21 07:14 morphine AdvReac Intermediate Nausea Verified 06/15/21 07:14 Consultations 06/15/21 13:23 Consult Hospitalist Routine Procedures Performed Operation Date: 06/15/21 07:45 Actual Procedures p L1-L2 Decompression with Interbody Cage, T12-S1 Fusion, (Not Applicable) - Manny Stallworth DO s L2-S1 Hardware Removal(Not Applicable) - Manny Stallworth DO Ordered Studies 06/15/21 07:45 [place] lumbar spine 2-3V Routine Hospital Course (1) Neurogenic claudication due to lumbar spinal stenosis: Patient underwent thoracolumbar decompression fusion tolerated this well second orthopedic for possibly. Her postoperative course was stable and uneventful. She progressed appropriately. TIFFANY drain decreased appropriate. Excellent strength testing. Subsequent discharge home. Discharge orders instructions from the chart for further review. Total Time Total Time Spent Total Time Spent (In Minutes): 20 minutes Discharge Plan Discharge Items Patient Disposition: Home - Self-Care Reason For Visit: Spinal Stenosis, Lumbar Region with Neurogenic Cla Discharge Diagnosis: Lumbar spinal stenosis with neurogenic claudication Activity: As commented below Non-emergency contact: Primary Care Provider Call non-emergency contact if: you have any medication questions Follow-up/Referrals: Manny Bland DO [Primary Care Provider] - Diet: Regular Addtl Attending Provider Instructions: ACTIVITY RECOMMENDATIONS: SELF CARE INSTRUCTIONS AFTER THORACIC/LUMBAR FUSIONS 1. You may walk to your tolerance. It is good exercise for your legs and back. Expect some back and intermittent leg aches and pains. 2. You may perform "counter-top" level activities (make a sandwich, john with a project, etc.). 3. No bending or lifting of more than 10 pounds or back twisting of any nature (roll like a log when turning in bed). 4. You may ride in a car for 20-30 minutes at a time. No driving until after your first visit with your doctor. 5. Frequent changes of position and restricting sitting to 30 minutes at a time will help limit the amount of back spasms and stiffness you may experience. 6. You may discontinue the use of ambulatory aids (cane, crutches, etc.) once your strength and confidence allow. 7. You may pet trainer the shower and let water strike your incision when you arrive home at least once daily. Do not take a tub bath, sit in a hot tub or go into a swimming pool until after your first recheck in the office. SPECIAL CARE INSTRUCTIONS: VERY IMPORTANT TO READ AND REVIEW A. Your surgical incision has been closed with a cosmetic suture under the skin that will dissolve in about 6 weeks. In 14 days, you can use a pair of clean scissors and cut the suture that is left outside of the skin at the ends of your incision. 1. The small skin tapes can be removed 7 days after surgery if they have not fallen off by that point. 2. You may keep the wound open to air as much as possible to promote healing after post-op day number 5 unless told otherwise by your doctor. 3. If you think the wound looks like it is becoming infected (redness or worsening drainage) and/or you are experiencing fever, chill or worsening back pain and muscle spasms, contact the office so that we may evaluate you as soon as possible. B. Complications are uncommon, but please contact us if you have any signs or symptoms of: 1. wound infection (fever higher than 102.5 degrees F, redness, separation of wound, drainage, or increasing pain from the incision) 2. blood clots in legs (pain, swelling, redness and warmth in legs) 3. urinary tract infection (fever higher than 102.5 degrees F, burning upon urination or increased frequency of urination) 4. nerve problems (inability to walk on your toes or heels, numbness, loss of bowel or bladder control) 5. any other symptoms that concern you C. Please call the office at if you have any concerns or questions about your operation or recovery. D. No smoking! Smoking drastically decreases the chance of a solid fusion. E. Do not take any anti-inflammatory medications (Indocin, Advil, Motrin, Aspirin, Naprosyn, etc.) as these may inhibit the chance of a solid fusion. Tylenol is okay to take for pain. MANAGING PAIN AFTER SPINAL SURGERY 1. Narcotic medication is intended for short-term use and will be provided for surgical pain. Surgical pain usually lasts for a period of 4-6 weeks. Narcotic medication includes Percocet, Vicodin, Darvocet, Tylenol #3 or Lortab. 2. Longer-term pain is more appropriately treated with non-narcotic medication such as Tylenol ES. 3. Muscle spasm is not appropriately treated with narcotics. Muscle relaxers such as Soma, Flexeril or Skelaxin can be used along with Tylenol ES. 4. Remember that we all live with some "aches and pains". This is not unusual or uncommon after an injury or as we get older. a. Back pain is expected and may include muscle spasms for 4 to 6 weeks after surgery. The pain should gradually improve. If the pain worsens for no apparent reason, please contact the office. b. Intermittent leg pain may also be experienced and should not be concerned about unless it worsens for no apparent reason. If so, please contact the office. 5. We will provide appropriate medication within the normal guidelines of their prescribed use. We will also be very cautious and aware of potential abuse and extended duration of patients' medication needs. a. Pain medications are for your comfort and to assist with sleep and rest so that the tissue can heal. They are not provided in order to return to normal activity and should not be used through the day. To do so or worsening pain at night can result from ongoing tissue damage and development of tolerance to the prescribed medicine. 6. Please allow 2-3 days to process refills. Prescriptions will not be mailed but must be picked up at the office. FOLLOW UP VISIT: Keep your scheduled follow-up appointment. Any questions, please call the office at . Pending Studies at Discharge: No Stand-Alone Forms: My [facility], Smoking Cessation Medications and DC Order Prescriptions: New tramadol 50 mg tablet 50 mg PO Q6H PRN (Reason: pain, moderate) Qty: 30 RF: 0 oxycodone 5 mg tablet 5 mg PO Q6H PRN (Reason: pain, severe) Qty: 30 RF: 0 Continued ondansetron HCl [Zofran] 4 mg tablet 4 mg PO Q6H Qty: 30 RF: 2 pantoprazole 40 mg tablet,delayed release (DR/EC) See Rx Instructions .ROUTE .COMPLEX Qty: 60 RF: 0 pramipexole [Mirapex] 1 mg tablet 1 mg PO HS RF: 0 metformin 500 mg tablet 1,000 mg PO BID RF: 0 gabapentin 600 mg tablet 600 mg PO TID RF: 0 pravastatin 40 mg tablet 40 mg PO QAM RF: 0 diltiazem HCl 180 mg capsule,extended release 24hr 180 mg PO QAM RF: 0 sucralfate [Carafate] 1 gram tablet 1 g PO ACHS PRN (Reason: Indigestion) RF: 0 cyanocobalamin (vitamin B-12) [Vitamin B-12] 1,000 mcg Tablet 1,000 mcg PO QAM RF: 0 fenofibrate micronized 134 mg capsule 134 mg PO QPM RF: 0 hydrochlorothiazide 25 mg tablet 25 mg PO QAM RF: 0 lisinopril 40 mg tablet 40 mg PO QAM RF: 0 duloxetine [Cymbalta] 30 mg capsule,delayed release(DR/EC) 30 mg PO QAM RF: 0 duloxetine 60 mg capsule,delayed release(DR/EC) 60 mg PO QAM RF: 0 cholecalciferol (vitamin D3) [Vitamin D3] 25 mcg (1,000 unit) Tablet 25 mcg PO QAM RF: 0 famotidine 20 mg tablet 20 mg PO BID Qty: 14 RF: 0 diclofenac sodium 1 % gel 2 g TOPICAL QID PRN (Reason: Pain) RF: 0 oxycodone-acetaminophen 5-325 mg Tablet 1 tab PO Q6H PRN (Reason: Pain) RF: 0 albuterol sulfate 90 mcg/actuation HFA aerosol inhaler 2 puff INHALATION Q3H PRN (Reason: Shortness Of Breath) RF: 0 Anoro Ellipta 62.5-25 mcg/actuation blister with device 62.5 inh INHALATION QAM RF: 0 acetaminophen 325 mg Tablet 650 mg PO Q4H PRN (Reason: fever or pain) Qty: 30 RF: 0 Discharge Orders: Discharge Order (Routine); Ordered 06/21/21 Ordered By: Manny Zimmerman/Other Patient Handouts: Managing Type 2 Diabetes, Diabetes: Meal Planning Admission Data Admit Date/Time: 06/15/21 10:21 Attending Provider: Manny Stallworth Admit Provider: Manny Stallworth Primary Care Provider: Manny Bland Other Providers: Tayo Garcia
[2021-06-21] MEDS: traMADol HCL 50 MG TABLET PO PRN (13:53)
== END 2021-06-21 14:24 | disposition home or self-care (01) | DRG 454 ==
LOC: ASU 06:04 → 3E 10:21

== ENCOUNTER 2021-06-22 19:20 | Inpatient (IN) ==
[2021-06-22 20:07] LABS: Basophils # (auto) 0.01 K/uL (0-0.2); Basophils % (auto) 0.1 %; Eosinophils # (auto) 0.14 K/uL (0-0.5); Eosinophils % (auto) 0.9 %; Hematocrit (blood only) 41.3 % (37-47); Hemoglobin 13.6 g/dL (12.0-16.0); Immature Granulocytes # (auto) 0.18 K/uL (0.00-0.02); Immature Granulocytes % (auto) 1.1 %; Lymphocytes # (auto) 0.77 K/uL (1.2-3.4); Lymphocytes % (auto) 4.9 %; Mean Corpuscular Hemoglobin 29.6 pg (25-34); Mean Corpuscular Hgb Conc 32.9 g/dL (32-36); Mean Corpuscular Volume 89.8 fL (80-100); Mean Platelet Volume 9.8 fL (7.4-10.4); Monocytes # (auto) 0.78 K/uL (0.11-0.59); Neutrophils # (auto) 13.81 K/uL (1.4-6.5); Platelet Count 494 K/uL (130-400); RDW Coefficient of Variation 14.2 % (11.5-14.5); RDW Standard Deviation 46.4 fL (36.4-46.3); White Blood Count 15.69 K/uL (4.8-10.8)
[2021-06-22] MEDS ORDERED: SODIUM CHLORIDE 0.9% 500 ML IV ONE (20:41)
[2021-06-22] MEDS ORDERED: PIPERACILL/TAZOBAC CONSULT ACTIVE PRN ×2 (20:48→22:34)
[2021-06-22] MEDS ORDERED: PIPERACILLIN/TAZOBACTAM 4.5 GM/120 ML BAG IV ONE (20:48)
--- NOTE | 2021-06-22 20:49 | XRay Report ---
XR chest 1V portable HISTORY: 76 years-old Female shortness of breath acute shortness of breath COMPARISON: Chest radiograph 05/26/2021 TECHNIQUE: Portable AP view of the chest FINDINGS: Cardiac silhouette is enlarged. Left pleural effusion with left midlung and left basilar consolidatio n. Right lung base opacities suggest atelectasis. Calcific granuloma the lateral right lung base. Rocky cified plaque of the thoracic aorta. Degenerative changes of the shoulders and spine. Spinal fusion h ardware is partially imaged. IMPRESSION: 1. Left midlung and left basilar consolidation suggestive of pneumonia. 2. Layering left pleural effusion. 3. Cardiomegaly. ACT 112: Negative or not required by law. The above report was generated using voice recognition software. It may contain grammatical, syntax o r spelling errors. Electronically signed by: Stef Pineda M.D. 06/22/2021 8:48 PM
[2021-06-22 20:56] LABS: Alanine Aminotransferase 14 U/L (7-52); Albumin Globulin Ratio 1.1 (0.9-2); Albumin Level 3.8 gm/dl (3.4-5.0); Alkaline Phosphatase 55 U/L (34-104); Anion Gap 11 (3-11); Aspartate Aminotransferase 16 U/L (13-39); BUN Creatinine Ratio 20.7 (10-20); Bilirubin,Total 0.6 mg/dl (0.2-1.0); Blood Urea Nitrogen 29 mg/dl (6-23); Calcium 9.7 mg/dl (8.5-10.1); Carbon Dioxide 29 mmol/L (21-32); Chloride 94 mmol/L (98-107); Est GFR (African American) 41.9 ml/min; Est GFR (Non-African American) 36.2 ml/min; Globulin 3.5 gm/dl (2.5-4.0); Glucose 228 mg/dl (70-99(Fasting)); Potassium 4.4 mmol/L (3.5-5.1); Sodium 134 mmol/L (136-145); Total Protein 7.3 gm/dl (6.0-8.3)
--- NOTE | 2021-06-22 21:07 | History & Physical Report ---
Date of Service June 22, 2021 Assessment & Plan (1) Pneumonia: Plan: Patient has what looks like looks like a left lower lobe pneumonia. This is in the postoperative state recently hospitalized therefore we need not be concerned for healthcare associated pneumonia emergency department started on Zosyn we will add a dose of vancomycin get MRSA nasal swab stop the vancomycin if it is negative. Patient has a history of moderate to severe esophageal dysmotility with previous dilataion by gastroenterology in the past therefore there would also be concerned this could be an aspiration pneumonia which would also be covered by her Zosyn therapy. Blood cultures were obtained in the emergency department. With her significant smoking history if the patient does not improve consider CT scan of the chest (2) MATT (acute kidney injury): Plan: Patient has acute kidney injury with a creatinine 1.4 baseline is below 1 patient given additional hydration and her CHIP inhibitor will be held ckd 2 (3) S/P lumbar spine operation: Plan: Patient underwent lumbar spine surgery on June 15 from T12-L2 by Dr. Stallworth, pt has pain but no neuropathy will be continued on pain medicines and see PT (4) COPD (chronic obstructive pulmonary disease): Plan: Patient suffers from COPD atypically usually on Anoro Ellipta and as needed albuterol will use duo nebs and try to induce expectoration with Mucinex and flutter valve Patient is not have wheezing or prolonged expiratory phase consider use of steroids at this time (5) SHELDON on CPAP: Plan: Patient will be given oxygen at night her first night in hopes of not worsening any aspiration events may institute CPAP if the patient improves (6) Depression: Plan: Patient typically takes 90 mg of Cymbalta a day (7) Diabetes mellitus type 2 in obese: Plan: For the patient's diabetes she is typically is on Metformin Patient's glucose is in poor control in emergency department should be switched to sliding scale insulin with carb coverage and if need be we will add a long- acting insulin. 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 Stallworth. Her hospital stay did include some periods of hypoxia which was attributed to her COPD. She represents tonight with acute on chronic respiratory failure with hypoxia and what appears to be a left-sided pulmonary infiltrate. The patient has a history of a Schatzki's ring and previous problems with aspiration therefore this may be aspiration pneumonia. On admission the patient is a white count of 15.69 Covid testing is pending however with her operation she was tested negative on on 06/15/2021. Patient states she is got a productive cough at times coughing until she vomits the cough is usually green-yellow mucus. Is of some chest discomfort mostly right lateral. Had no wheezing Allergies Allergy/AdvReac Type Severity Reaction Status Date / Time atorvastatin [From Lipitor] Allergy Intermediate Skin Rash Verified 06/15/21 07:14 morphine AdvReac Intermediate Nausea Verified 06/15/21 07:14 Home Medications Medication Instructions Recorded Confirmed Type cholecalciferol (vitamin D3) 25 25 mcg PO QAM 05/03/20 06/15/21 History mcg (1,000 unit) tablet (Vitamin D3) cyanocobalamin (vitamin B-12) 1,000 mcg PO QAM 05/03/20 06/15/21 History 1,000 mcg tablet (Vitamin B-12) diltiazem HCl 180 mg 180 mg PO QAM 05/03/20 06/15/21 History capsule,extended release 24 hr duloxetine 30 mg capsule,delayed 30 mg PO QAM 05/03/20 06/15/21 History release (Cymbalta) duloxetine 60 mg capsule,delayed 60 mg PO QAM 05/03/20 06/15/21 History release fenofibrate micronized 134 mg 134 mg PO QPM 05/03/20 06/15/21 History capsule gabapentin 600 mg tablet 600 mg PO TID 05/03/20 06/15/21 History hydrochlorothiazide 25 mg tablet 25 mg PO QAM 05/03/20 06/15/21 History lisinopril 40 mg tablet 40 mg PO QAM 05/03/20 06/15/21 History metformin 500 mg tablet 1,000 mg PO BID 05/03/20 06/15/21 History pramipexole 1 mg tablet (Mirapex) 1 mg PO HS 05/03/20 06/15/21 History pravastatin 40 mg tablet 40 mg PO QAM 05/03/20 06/15/21 History sucralfate 1 gram tablet (Carafate) 1 g PO ACHS PRN 05/03/20 06/15/21 History famotidine 20 mg tablet 20 mg PO BID #14 tab 05/06/20 06/15/21 Rx albuterol sulfate 90 mcg/actuation 2 puff INHALATION Q3H PRN 11/08/20 06/15/21 History aerosol inhaler umeclidinium 62.5 mcg-vilanterol 62.5 inh INHALATION QAM 11/08/20 06/15/21 History 25 mcg/actuation powdr for inhalation (Anoro Ellipta) acetaminophen 325 mg tablet 650 mg PO Q4H PRN #30 tab 11/10/20 06/15/21 Rx diclofenac sodium 1 % topical gel 2 g TOPICAL QID PRN 11/16/20 06/15/21 History ondansetron HCl 4 mg tablet 4 mg PO Q6H #30 tab 03/02/21 06/15/21 Rx (Zofran) oxycodone-acetaminophen 5 mg-325 1 tab PO Q6H PRN 05/22/21 06/15/21 History mg tablet oxycodone 5 mg tablet 5 mg PO Q6H PRN #30 tab 06/15/21 Rx tramadol 50 mg tablet 50 mg PO Q6H PRN #30 tab 06/15/21 Rx pantoprazole 40 mg tablet,delayed 40 mg PO BID 06/22/21 06/22/21 History release 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 Dysphagia Esophageal dysmotility GERD (gastroesophageal reflux disease) History of esophageal dilatation HTN (hypertension), benign Hyperlipidemia Nausea & vomiting anytime eats or drinks, per pt and granddaughter was thought to be d/t mucus from smoking as does not happen when not smoking during hospitalizations Obesity Peptic ulcer disease (~2017) bleeding ulcer Peripheral neuropathy Restless leg syndrome Schatzki's ring Sleep apnea unable to tolerate cpap Weight loss, unintentional Surgical History History of bilateral tubal ligation History of carpal tunnel release Left History of cataract surgery bilateral History of colonoscopy History of esophagogastroduodenoscopy (EGD) History of lumbar fusion History of repair of rotator cuff Right S/P epidural steroid injection Family History Father Heart disease Brother Kidney disease Mother Gastric cancer Family/Other Testicular cancer Other No family history of adverse response to anesthesia Social History Smoking Status: Former smoker Tobacco Type: Cigarettes Age Started Using Tobacco: 11; Years Smoked: 63; Cigarettes Per Day: 10 a day; Second Hand Exposure: No; Hx Alcohol Use: No Hx Substance Use: No Preferred Language: Ecuadorean Communication Ability: Effective Weigh And Charge Worker Required: No Beliefs That Will Affect Care: None marital status: / Current Living Situation: Family Current Living Situation Comment: home with son Feels Safe at Home: Yes Assistive Devices: Walker Review of Systems Review of Systems: Moderate distress and fatigue no headache, no visual changes no speech or swallowing issues no chest pain, pressure or palpitations Patient over baseline shortness of breath, productive cough has had no wheezes no abdominal pain, nausea or vomiting, is not with constipation no dysuria, hematuria or frequency no focal joint pain or swelling Generalized lower back pain without radicular component Reported wound doing well no focal signs of weakness or numbness or altered sensation no complaints of anxiety or depression.. Physical Exam Physical Exam: The patient appeared well nourished and normally developed. Vital signs as documented. Head exam is normocephalic atraumatic Neck is without JVD, thyromegaly, or carotid bruits. Lungs are diminished to absent breath sounds at the left base Cardiac exam, Rhythm is regular.. No murmurs, rubs or gallops. Abdominal exam reveals normal bowel sounds, soft non tender, no masses Extremities are nonedematous and both pedal pulses are present Neurologic exam is alert and oriented, no focal loss of strength or sensation Skin is with well healing lumbar incision Psychologically is without concerns for anxiety or depression.. Results & Data Results & Data ([facility]) Vital Signs (Past 12 Hours) Vital Signs Temp Pulse Resp BP Pulse Ox 06/22/21 20:11 82 L 06/22/21 19:59 102 H 82 L 06/22/21 19:33 97.7 F 18 93/62 L Diagnostic Findings Chest X-Ray 06/22/21 20:38 XR chest 1V portable IMPRESSION: 1. Left midlung and left basilar consolidation suggestive of pneumonia. 2. Layering left pleural effusion. 3. Cardiomegaly. Electronically signed by: Stef Pineda M.D. 06/22/2021 8:48 PM PG Care Time/CCT Total # of Minutes Spent Total Time Spent with Patient: Total time spent is greater than 50% in coordination of care (as documented) at patient's floor/unit and/or counseling patient: Coding Level of Care Code 18877 Initial Inpt Care Lvl 3 Diagnoses S/P lumbar spine operation Z98.890 DVT prophylaxis Z29.9 COPD (chronic obstructive pulmonary disease) J44.1 COPD type: COPD with acute exacerbation SHELDON on CPAP G47.33; Z99.89 Depression F32.9 Diabetes mellitus type 2 in obese E11.69; E66.9 HTN (hypertension), benign I10 Pneumonia J18.9 MATT (acute kidney injury) N17.9 (1) COPD (chronic obstructive pulmonary disease) COPD type: COPD with acute exacerbation Qualified Code(s): J44.1 - Chronic obstructive pulmonary disease with (acute) exacerbation
[2021-06-22] MEDS ORDERED: SODIUM CHLORIDE 0.9% 1000ML 1,000 ML IV ONE (21:10)
--- NOTE | 2021-06-22 21:15 | Emergency Department Note ---
Impression & Plan Sepsis, Aspiration pneumonia, Hypoxia, Hypotension ED Provider Note Name: NICO STEPHENS Age: 76 Sex: F Arrives Via: Walk-In Informant: Patient, daughter ED Provider: Saran Blanca MD Chief Complaint: Illness Impression: As per impression above Medical Decision Makin-year-old female with extensive past medical history including type 2 diabetes, GERD, hypertension, hyperlipidemia who was just released from the hospital yesterday after a week in the hospital for post back surgery management. Patient arrives today in severe respiratory distress and having significant weakness. On examination she is hypoxic, hypotensive and tachycardic with decreased breath sounds and crackles primarily throughout the left lobe. Initially unclear whether this was acute CHF exacerbation versus infectious etiology and thus 500 mL bolus was initially ordered. Labs including blood cultures were obtained. Patient did have somewhat improvement in her blood pressure thus another liter of fluids were given to meet a 30/kg fluid bolus based on her ideal body weight (BMI>30). Patient's blood pressure did start improving and as work-up progressed it was more more clear that this was infectious etiology. She was given IV antibiotics for sepsis management with suspicion this is aspiration in nature. The lactic acid did return elevated consistent with her sepsis as well as the hypoxic event she was having. Given all these findings I suspect that this is much more likely pneumonia rather than a PE though in the setting of her renal insufficiency I am a bit cautious in giving her a dye load at this time with the more likely cause as the pneumonia. The hospitalist was in to evaluate patient further. With patient's history this is most consistent with an aspiration pneumonia causing septic shock as evidenced by her significant hypotension on arrival which fortunately responded well to fluid boluses and repeat volume status evaluations reveal much improved patient. Prior Medical Record and Triage/Nursing Notes reviewed by Me Additional history obtained from Differentials:Reactive airway disease, pneumonia, pneumothorax, COPD, CHF, infections, cardiac ischemia, pulmonary embolism, musculoskeletal, gastroi ntestinal, as well as other pathologies. Vital Signs: reviewed and remarkable for hypoxia, tachycardia, hypotension Interventions: 1.5 L of normal saline bolus, Zosyn IV Given the patients BMI >30, IBW was used to calculate the 30ml/kg fluid bolus. Furthermore patient with history renal disease and at risk fluid overload. Labs:Reviewed and remarkable for elevated white count, elevated lactic acid, elevated procalcitonin Imagin view chest x-ray with a large left lower lobe infiltrate EKG: Per My Interpretation: Indication sob: Sinus tachycardia at 107bpm, qtc 424, there are some supraventricular complexes noted. No Ischemia. Compared to EKG May 26, 2021, no significant changes. Cardiac/Tele Monitoring: Cardiac Monitoring: An Order was placed for continuous cardiac monitoring. The monitor shows a rate of 110with a sinus tach rhythm. Consults:Dr. Granda admitting hospitalist Plan: Disposition:Hospitalization. Condition: fair History of Present Illness:76-year-old female arrives for evaluation of shortness of breath. Patient was recently admitted to the hospital for the last week due to a lumbar spinal surgery. She notes she been doing better and was discharged home yesterday. Today at home she has been very short of breath and fatigue. She cannot walk up her stairs. She notes her back pain is much improved and her back's been feeling well. Shortness of breath has been worsening throughout the evening and she become diaphoretic and weak. Daughter brought her in for further evaluation. Patient notes that after getting in the room moving placed on oxygen feels much better. She has no current symptoms and has no complaints, though daughter notes that patient is still quite diaphoretic. Patient denies any significant chest pain, back pain, abdominal pain, leg pains, calf swelling or other symptoms. She does have a history of fluid overload as well as renal injuries in the past. Patient had no me dications prior to arrival. Any exertion makes symptoms worse and resting better. She denies any history of blood clots nor any blood thinner use in the past. ROS: See above HPI for pertinent positives & negatives. A total of 10 systems reviewed and were otherwise negative. Past Medical History:See Below Past Surgical History:See Below Family History:See Below Social History:See Below Home Medications:See Below Allergies:See Below Vitals:Blood Pressure: 88/60, Pulse 102, RR 18, T 36.5C, O2 82% on RA Physical Exam: GENERAL: Patient is chronically unwell appearing and in mild distress. Diaphoretic and unwell. EYES: No scleral icterus, unremarkable pupils. ENT: Mucous membranes dry, no nasal congestion. NECK: No masses appreciated, nomeningismus, trachea is midline. RESPIRATORY: No dyspnea. Clear to auscultation and equal bilaterally. No wheeze, no rhonchi. CARDIOVASCULAR: tachy.No murmurs, rubs, gallops appreciated. GASTROINTESTINAL: Abdomen soft, non-tender, no peritonitis.Bowel sounds positive.No masses appreciated. BACK: No midline tenderness, no CVA tenderness EXTREMITIES: Normal motion all extremities, no cyanosis, no edema. NEUROLOGIC: Alert and oriented though tired appearing, no acute motor or sensory deficits, no focal weakness, cranial nerves grossly intact. SKIN: No rash, no jaundice, no diaphoresis. PSYCH: Appropriate GCS: 15 ED Course: Times/Reassessments: Patient rapidly improving on nasal cannula O2 and fluid boluses. Repeat evaluation shows improvement in blood pressure patient much more comfortable and breathing comfortably. Critical Care: I have personally spent 45 minutes of critical care time in the direct manage ment of this patient. Acute septic shock secondary to aspiration pneumonia. This was a life/limb threatening event. This 45 minutes is in excess of all separately billable procedures. Saran Blanca MD 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 Dysphagia Esophageal dysmotility GERD (gastroesophageal reflux disease) History of esophageal dilatation HTN (hypertension), benign Hyperlipidemia Nausea & vomiting anytime eats or drinks, per pt and granddaughter was thought to be d/t mucus from smoking as does not happen when not smoking during hospitalizations Obesity Peptic ulcer disease (~2017) bleeding ulcer Peripheral neuropathy Restless leg syndrome Schatzki's ring Sleep apnea unable to tolerate cpap Weight loss, unintentional Surgical History History of bilateral tubal ligation History of carpal tunnel release Left History of cataract surgery bilateral History of colonoscopy History of esophagogastroduodenoscopy (EGD) History of lumbar fusion History of repair of rotator cuff Right S/P epidural steroid injection Family History Father Heart disease Brother Kidney disease Mother Gastric cancer Family/Other Testicular cancer Other No family history of adverse response to anesthesia Social History Smoking Status: Current every day smoker Tobacco Type: Cigarettes Age Started Using Tobacco: 11; Years Smoked: 63; Cigarettes Per Day: 20; Second Hand Exposure: No; Hx Alcohol Use: No Hx Substance Use: No Preferred Language: Azerbaijani Communication Ability: Effective Atm Technician Required: No Beliefs That Will Affect Care: None marital status: / Current Living Situation: Family Current Living Situation Comment: home with son Feels Safe at Home: Yes Safety Concerns: Feels Safe At This Time Assistive Devices: Walker Allergies Allergies Allergy/AdvReac Type Severity Reaction Status Date / Time atorvastatin [From Lipitor] Allergy Intermediate Skin Rash Verified 06/15/21 07:14 morphine AdvReac Intermediate Nausea Verified 06/15/21 07:14 Home Meds Home Medications Medication Instructions Recorded Confirmed cholecalciferol (vitamin D3) 25 25 mcg PO QAM 05/03/20 06/22/21 mcg (1,000 unit) tablet (Vitamin D3) cyanocobalamin (vitamin B-12) 1,000 mcg PO QAM 05/03/20 06/22/21 1,000 mcg tablet (Vitamin B-12) diltiazem HCl 180 mg 180 mg PO QAM 05/03/20 06/22/21 capsule,extended release 24 hr duloxetine 30 mg capsule,delayed 30 mg PO QAM 05/03/20 06/22/21 release (Cymbalta) duloxetine 60 mg capsule,delayed 60 mg PO QAM 05/03/20 06/22/21 release fenofibrate micronized 134 mg 134 mg PO QPM 05/03/20 06/22/21 capsule gabapentin 600 mg tablet 600 mg PO TID 05/03/20 06/22/21 hydrochlorothiazide 25 mg tablet 25 mg PO QAM 05/03/20 06/22/21 lisinopril 40 mg tablet 40 mg PO QAM 05/03/20 06/22/21 metformin 500 mg tablet 1,000 mg PO BID 05/03/20 06/22/21 pramipexole 1 mg tablet (Mirapex) 1 mg PO HS 05/03/20 06/22/21 pravastatin 40 mg tablet 40 mg PO QAM 05/03/20 06/22/21 sucralfate 1 gram tablet (Carafate) 1 g PO ACHS PRN 05/03/20 06/22/21 albuterol sulfate 90 mcg/actuation 2 puff INHALATION Q3H PRN 11/08/20 06/22/21 aerosol inhaler umeclidinium 62.5 mcg-vilanterol 62.5 inh INHALATION QAM 11/08/20 06/22/21 25 mcg/actuation powdr for inhalation (Anoro Ellipta) diclofenac sodium 1 % topical gel 2 g TOPICAL QID PRN 11/16/20 06/22/21 oxycodone-acetaminophen 5 mg-325 1 tab PO Q6H PRN 05/22/21 06/22/21 mg tablet pantoprazole 40 mg tablet,delayed 40 mg PO BID 06/22/21 06/22/21 release Previous Rx's Medication Instructions Recorded famotidine 20 mg tablet 20 mg PO BID #14 tab 05/06/20 acetaminophen 325 mg tablet 650 mg PO Q4H PRN #30 tab 11/10/20 ondansetron HCl 4 mg tablet 4 mg PO Q6H #30 tab 03/02/21 (Zofran) oxycodone 5 mg tablet 5 mg PO Q6H PRN #30 tab 06/15/21 tramadol 50 mg tablet 50 mg PO Q6H PRN #30 tab 06/15/21 Results & Data (ED) Vital Signs Vital Signs - 24 hr 06/22/21 19:33 06/22/21 19:59 06/22/21 20:11 Temperature 36.5 C Temperature Source Oral Pulse Rate [Ear Lobe] 102 H Respiratory Rate 18 Blood Pressure 93/62 L Blood Pressure Mean 72 Blood Pressure Position Standing Pulse Oximetry 82 L 82 L Oxygen Delivery Method Room Air Room Air Nasal Cannula Oxygen Flow Rate 0 Sepsis Recent Fever Within 48 Hours No Sepsis New/Unexplained Change in Mental Status No Sepsis Action Taken by Nursing No Action Required Oxygen Flow Rate - Titration 8 Pulse Oximetry Post Tiitration 91 Laboratory Data Result diagrams: 06/23/21 05:39 06/23/21 05:39 Lab Results 06/22/21 06/22/21 06/22/21 Range/Units 19:50 19:57 19:57 WBC 15.69 H (4.8-10.8) K/uL RBC 4.60 (4.2-5.4) M/uL Hgb 13.6 (12.0-16.0) g/dL Hct 41.3 (37-47) % MCV 89.8 (80-100) fL MCH 29.6 (25-34) pg MCHC 32.9 (32-36) g/dL RDW Std Deviation 46.4 H (36.4-46.3) fL RDW Coeff of [place] 14.2 (11.5-14.5) % Plt Count 494 H (130-400) K/uL MPV 9.8 (7.4-10.4) fL Immature Gran % (Auto) 1.1 % Neut % (Auto) 88.0 % Lymph % (Auto) 4.9 % Brooke % (Auto) 5.0 % Eos % (Auto) 0.9 % Baso % (Auto) 0.1 % Neut # (Auto) 13.81 H (1.4-6.5) K/uL Lymph # (Auto) 0.77 L (1.2-3.4) K/uL Brooke # (Auto) 0.78 H (0.11-0.59) K/uL Eos # (Auto) 0.14 (0-0.5) K/uL Baso # (Auto) 0.01 (0-0.2) K/uL Immature Gran # (Auto) 0.18 H (0.00-0.02) K/uL Sodium 134 L (136-145) mmol/L Potassium 4.4 (3.5-5.1) mmol/L Chloride 94 L (98-107) mmol/L Carbon Dioxide 29 (21-32) mmol/L Anion Gap 11 (3-11) BUN 29 H (6-23) mg/dl Creatinine 1.40 H D (0.6-1.2) mg/dl Est Cr Clr Drug Dosing Not Reportable Est GFR ( Amer) 41.9 ml/min Est GFR (Non-Af Amer) 36.2 ml/min BUN/Creatinine Ratio 20.7 H (10-20) Glucose 228 H (70-99(Fasting)) mg/dl POC Glucose 231 H (70-99) mg/dl Lactate (0.4-2.0) mmol/L Calcium 9.7 (8.5-10.1) mg/dl Magnesium (1.7-2.4) mg/dl Total Bilirubin 0.6 (0.2-1.0) mg/dl AST 16 (13-39) U/L ALT 14 (7-52) U/L Alkaline Phosphatase 55 (34-104) U/L Troponin I (0-0.04) ng/ml Total Protein 7.3 (6.0-8.3) gm/dl Albumin 3.8 (3.4-5.0) gm/dl Globulin 3.5 (2.5-4.0) gm/dl Albumin/Globulin Ratio 1.1 (0.9-2) Procalcitonin (0-0.5) ng/ml 06/22/21 06/22/21 06/22/21 Range/Units 19:57 19:57 21:06 WBC (4.8-10.8) K/uL RBC (4.2-5.4) M/uL Hgb (12.0-16.0) g/dL Hct (37-47) % MCV (80-100) fL MCH (25-34) pg MCHC (32-36) g/dL RDW Std Deviation (36.4-46.3) fL RDW Coeff of [place] (11.5-14.5) % Plt Count (130-400) K/uL MPV (7.4-10.4) fL Immature Gran % (Auto) % Neut % (Auto) % Lymph % (Auto) % Brooke % (Auto) % Eos % (Auto) % Baso % (Auto) % Neut # (Auto) (1.4-6.5) K/uL Lymph # (Auto) (1.2-3.4) K/uL Brooke # (Auto) (0.11-0.59) K/uL Eos # (Auto) (0-0.5) K/uL Baso # (Auto) (0-0.2) K/uL Immature Gran # (Auto) (0.00-0.02) K/uL Sodium (136-145) mmol/L Potassium (3.5-5.1) mmol/L Chloride (98-107) mmol/L Carbon Dioxide (21-32) mmol/L Anion Gap (3-11) BUN (6-23) mg/dl Creatinine (0.6-1.2) mg/dl Est Cr Clr Drug Dosing Est GFR ( Amer) ml/min Est GFR (Non-Af Amer) ml/min BUN/Creatinine Ratio (10-20) Glucose (70-99(Fasting)) mg/dl POC Glucose (70-99) mg/dl Lactate 3.2 H* (0.4-2.0) mmol/L Calcium (8.5-10.1) mg/dl Magnesium 1.6 L (1.7-2.4) mg/dl Total Bilirubin (0.2-1.0) mg/dl AST (13-39) U/L ALT (7-52) U/L Alkaline Phosphatase (34-104) U/L Troponin I < 0.03 (0-0.04) ng/ml Total Protein (6.0-8.3) gm/dl Albumin (3.4-5.0) gm/dl Globulin (2.5-4.0) gm/dl Albumin/Globulin Ratio (0.9-2) Procalcitonin 1.79 H (0-0.5) ng/ml Administered Medications Acetaminophen (Acetaminophen 325 Mg Tab) 650 mg PO Q4H PRN PRN Reason: fever or pain Stop: 07/22/21 22:33 Last Admin: 06/23/21 16:56 Dose: 650 mg Documented by: [id number] Albuterol (Albut/Ipratrop 3mg/0.5mg Neb 3 Ml Vial) 3 ml NEB QIDR [facility], [facility]; Protocol Stop: 07/23/21 06:59 Last Admin: 06/23/21 14:55 Dose: 3 ml Documented by: [id number] Admin: 06/23/21 10:47 Dose: 3 ml Documented by: [id number] Admin: 06/23/21 07:14 Dose: 3 ml Documented by: [id number] Duloxetine HCl (Duloxetine Hcl 30 Mg Cap) 30 mg PO [facility] Stop: 07/23/21 08:59 Last Admin: 06/23/21 08:04 Dose: 30 mg Documented by: [id number] Duloxetine HCl (Duloxetine Hcl 60 Mg Cap) 60 mg PO [facility] Stop: 07/23/21 08:59 Last Admin: 06/23/21 08:04 Dose: 60 mg Documented by: [id number] Famotidine (Famotidine 20 Mg Tab) 20 mg PO BID [facility] Stop: 07/23/21 08:59 Last Admin: 06/23/21 08:04 Dose: 20 mg Documented by: [id number] Gabapentin (Gabapentin 600 Mg Tab) 300 mg PO TID [facility] Stop: 07/23/21 08:59 Last Admin: 06/23/21 12:33 Dose: 300 mg Documented by: [id number] Admin: 06/23/21 08:03 Dose: 300 mg Documented by: [id number] Guaifenesin (Guaifenesin 600 Mg Tabcr) 1,200 mg PO Q12 [facility] Stop: 07/23/21 08:59 Last Admin: 06/23/21 08:04 Dose: 1,200 mg Documented by: [id number] Heparin Sodium (Porcine) (Heparin Sod 5,000 Unit/0.5 Ml Vial) 5,000 units SQ Q12 [facility] Stop: 07/23/21 08:59 Last Admin: 06/23/21 08:04 Dose: 5,000 units Documented by: [id number] Pantoprazole Sodium 40 mg/ (Syringe) 10 mls @ 5 mls/min IV BID [facility] Stop: 07/23/21 08:59 Last Admin: 06/23/21 08:03 Dose: 5 mls/min Documented by: [id number] Piperacillin Sod/Tazobactam (Sod 3.375 gm/ Dextrose) 115 mls @ 28.75 mls/hr IV Q8H [facility]; Protocol Stop: 06/30/21 01:59 Last Admin: 06/23/21 16:56 Dose: 28.8 mls/hr Documented by: [id number] Infusion: 06/23/21 14:36 Dose: 0 mls/hr Documented by: [id number] Admin: 06/23/21 10:09 Dose: 28.8 mls/hr Documented by: [id number] Infusion: 06/23/21 05:35 Dose: 0 mls/hr Documented by: [id number] Admin: 06/23/21 02:25 Dose: 28.8 mls/hr Documented by: [id number] Insulin Aspart (Insulin Aspart Per Unit) 0 units SC ACHS [facility] Stop: 07/23/21 07:29 Last Admin: 06/23/21 16:54 Dose: 4 units Documented by: [id number] Cosigned by: [id number] Admin: 06/23/21 12:33 Dose: 6 units Documented by: [id number] Cosigned by: [id number] Admin: 06/23/21 08:10 Dose: 10 units Documented by: [id number] Cosigned by: [id number] Discontinued Medications Sodium Chloride (Nss) 500 mls @ 999 mls/hr IV .Q31M ONE Stop: 06/22/21 21:11 Last Infusion: 06/22/21 22:41 Dose: 0 mls/hr Documented by: [id number] Admin: 06/22/21 21:01 Dose: 999 mls/hr Documented by: [id number] Piperacillin Sod/Tazobactam Sod (Zosyn) 4.5 gm in 120 mls @ 240 mls/hr IV NOW ONE Stop: 06/22/21 21:17 Last Infusion: 06/22/21 22:41 Dose: 0 mls/hr Documented by: [id number] Admin: 06/22/21 21:01 Dose: 240 mls/hr Documented by: [id number] Sodium Chloride (Nss 1000ml) 1,000 mls @ 999 mls/hr IV .Q1H1M ONE Stop: 06/22/21 22:10 Last Infusion: 06/22/21 22:41 Dose: 0 mls/hr Documented by: [id number] Infusion: 06/22/21 22:41 Dose: 0 mls/hr Documented by: [id number] Admin: 06/22/21 21:43 Dose: 999 mls/hr Documented by: [id number] Sodium Chloride (Nss 1000ml) 1,000 mls @ 100 mls/hr IV .Q10H [facility] Stop: 06/23/21 08:33 Last Infusion: 06/23/21 08:40 Dose: 0 mls/hr Documented by: [id number] Admin: 06/22/21 22:38 Dose: 100 mls/hr Documented by: [id number] Sodium Chloride (Nss 1000ml) 500 mls @ 999 mls/hr IV .Q31M ONE Stop: 06/22/21 23:43 Last Infusion: 06/23/21 00:00 Dose: 0 mls/hr Documented by: [id number] Admin: 06/22/21 23:26 Dose: 999 mls/hr Documented by: [id number] Sodium Chloride (Nss 1000ml) 500 mls @ 999 mls/hr IV .Q31M ONE Stop: 06/23/21 02:54 Last Infusion: 06/23/21 03:10 Dose: 0 mls/hr Documented by: [id number] Admin: 06/23/21 02:25 Dose: 999 mls/hr Documented by: [id number] Magnesium Sulfate/Dextrose (Magnesium Sulfate / D5w) 1 gm in 100 mls @ 50 mls/hr IV ONE ONE Stop: 06/23/21 04:24 Last Infusion: 06/23/21 04:23 Dose: 0 mls/hr Documented by: [id number] Admin: 06/23/21 02:49 Dose: 50 mls/hr Documented by: [id number] Hydrocortisone Sodium (Succinate 50 mg/ Syringe) 1 mls @ 4 mls/min IV ONE ONE Stop: 06/23/21 03:01 Last Admin: 06/23/21 03:10 Dose: 4 mls/min Documented by: [id number] Vancomycin HCl 1,500 mg/ (Sodium Chloride) 530 mls @ 200 mls/hr IV ONE ONE Stop: 06/23/21 05:38 Last Infusion: 06/23/21 05:35 Dose: 0 mls/hr Documented by: [id number] Admin: 06/23/21 03:10 Dose: 200 mls/hr Documented by: [id number] Midodrine (Midodrine Hcl 2.5 Mg Tab) 5 mg PO ONE ONE Stop: 06/23/21 03:01 Last Admin: 06/23/21 03:24 Dose: 5 mg Documented by: [id number] Imaging Data Radiologist's Impression: Chest X-Ray 06/22/21 20:38 XR chest 1V portable HISTORY: 76 years-old Female shortness of breath acute shortness of breath COMPARISON: Chest radiograph 05/26/2021 TECHNIQUE: Portable AP view of the chest FINDINGS: Cardiac silhouette is enlarged. Left pleural effusion with left midlung and left basilar consolidation. Right lung base opacities suggest atelectasis. Calcific granuloma the lateral right lung base. Calcified plaque of the thoracic aorta. Degenerative changes of the shoulders and spine. Spinal fusion hardware is partially imaged. IMPRESSION: 1. Left midlung and left basilar consolidation suggestive of pneumonia. 2. Layering left pleural effusion. 3. Cardiomegaly. ACT 112: Negative or not required by law. The above report was generated using voice recognition software. It may contain grammatical, syntax or spelling errors. Electronically signed by: Stef Pineda M.D. 06/22/2021 8:48 PM Discharge Plan Visit Data Chief Complaint: Respiratory Problems Stated Complaint: DISCHARGED YESTERDAY, O2 LOW, HR DROP, CLAMMY ED Provider: Saran Blanca Discharge Problem: Sepsis, Aspiration pneumonia, Hypoxia, Hypotension Patient Disposition: Admitted As Inpatient Discharge Instructions Interventions: ED Discharge Assessment Last Done: 06/22/21 22:17 Discharge Problem: Sepsis Qualifiers: Sepsis type: sepsis due to unspecified organism Sepsis acute organ dysfunction status: with acute organ dysfunction Severe sepsis acute organ dysfunction type: acute respiratory failure Acute respiratory failure type: with hypoxia Severe sepsis shock status: with septic shock Qualified Code(s): A41.9 - Sepsis, unspecified organism Aspiration pneumonia Qualifiers: Aspiration pneumonia type: unspecified Laterality: left Lung location: lower lobe of lung Qualified Code(s): J69.0 - Pneumonitis due to inhalation of food and vomit Hypotension Qualifiers: Hypotension type: other hypotension type Qualified Code(s): I95.89 - Other hypotension
[2021-06-22 21:32] LABS: Magnesium 1.6 mg/dl (1.7-2.4)
[2021-06-22 21:52] LABS: Troponin I < 0.03 ng/ml (0-0.04)
[2021-06-22] MEDS ORDERED: CARBOHYDRATES FOR HYPOGLYCEMIA PO PRN (22:34)
[2021-06-22] MEDS ORDERED: MoRPHine SULFATE 2 MG/ML CARP IV PRN (22:34)
[2021-06-22] MEDS ORDERED: ONDANSETRON INJ 2 MG/ML 2 ML VIAL IV PRN (22:34)
[2021-06-22] MEDS ORDERED: GLUCAGON FOR INJ 1 MG VIAL SQ PRN (22:34)
[2021-06-22] MEDS ORDERED: GLUCOSE 40% GEL 15 GM TUBE PO PRN (22:34)
[2021-06-22] MEDS ORDERED: SODIUM CHLORIDE 0.9% 1000ML 1,000 ML IV SCH (22:34)
[2021-06-22] MEDS ORDERED: DEXTROSE 50% 50 ML SYRINGE IV PRN (22:34)
[2021-06-22] MEDS ORDERED: oxyCODONE HCL IR 5 MG TAB (IMMEDIATE RELEASE) PO PRN (22:34)
[2021-06-22] MEDS ORDERED: GLUCOSE 10 TABS/TUBE PO PRN (22:34)
[2021-06-22] MEDS ORDERED: SODIUM CHLORIDE 0.9% 1000ML 500 ML IV ONE (23:13)
[2021-06-23 00:01] LABS: Base Excess ABG 3.6 mEq/L (-9-1.8); HCO3 ABG 28 mmol/L (19-24); PCO2 ABG 43 mmHg (35-46); PO2 ABG 79 mmHg (80-95); pH ABG 7.44 (7.35-7.45)
[2021-06-23 00:10] LABS: Allen Test POS (Pos)
[2021-06-23] MEDS ORDERED: SODIUM CHLORIDE 0.9% 1000ML 500 ML IV ONE (02:24)
[2021-06-23] MEDS: PIPERACILLIN/TAZOBACTAM 3.375 GM in DEXTROSE 5% 100 ML IV SCH ×3 (02:25→16:56)
[2021-06-23] MEDS ORDERED: MAGNESIUM SULFATE / D5W 1 GM/100 ML BAG IV ONE (02:25)
[2021-06-23] MEDS ORDERED: VANCOMYCIN CONSULT ACTIVE PRN (02:43)
[2021-06-23] MEDS ORDERED: HYDROCORTISONE SOD 50 MG in SYRINGE 0 ML IV ONE (03:00)
[2021-06-23] MEDS ORDERED: MIDODRINE HCL 2.5 MG TAB PO ONE (03:00)
[2021-06-23] MEDS ORDERED: VANCOMYCIN HCL 1,500 MG in SODIUM CHLORIDE 0.9% 500 ML IV ONE (03:00)
[2021-06-23 04:39] LABS: Appearance Urine Clear (Clear); Bacteria Urine Automated Negative (Negative); Bilirubin Urine Negative (Negative); Blood Urine Negative (Negative); Color Urine Yellow; Epithelial Cell Urine Auto >30 /lpf (0-5); Glucose Urine UA 2+ (Negative); Ketones Urine Negative (Negative); Leukocyte Esterase Urine Negative (Negative); Nitrite Urine Negative (Negative); Protein Urine 2+ (Negative); RBC Urine Automated 0-4 /hpf (0-4); Specific Gravity Urine 1.018 (1.000-1.030); Urobilinogen Urine Negative (Negative); pH Urine 6.5 (4.5-7.5)
[2021-06-23 06:16] LABS: BUN Creatinine Ratio 19.1 (10-20); Calcium 8.2 mg/dl (8.5-10.1); Creatinine Clr Calc Pharmacy 25.8 ml/min; Est GFR (African American) 32.4 ml/min; Magnesium 1.9 mg/dl (1.7-2.4); Potassium 4.8 mmol/L (3.5-5.1)
[2021-06-23 06:24] LABS: Hematocrit (blood only) 31.8 % (37-47); Hemoglobin 10.3 g/dL (12.0-16.0); Mean Corpuscular Hemoglobin 29.1 pg (25-34); Mean Corpuscular Hgb Conc 32.4 g/dL (32-36); Mean Corpuscular Volume 89.8 fL (80-100); Mean Platelet Volume 9.6 fL (7.4-10.4); Platelet Count 386 K/uL (130-400); RDW Coefficient of Variation 14.4 % (11.5-14.5); RDW Standard Deviation 47.4 fL (36.4-46.3); Red Blood Count 3.54 M/uL (4.2-5.4); White Blood Count 29.07 K/uL (4.8-10.8)
--- NOTE | 2021-06-23 07:00 | Hospitalist Progress Note ---
Date of Service June 23, 2021 Assessment & Plan (1) Pneumonia: Plan: Sepsis 2/2 Pneumonia; concern for HAP vs. Aspiration - SIRS criteria: Meets severe sepsis criteria (Tachypnea, tachycardia, elevated WBC) - hypotension - IV hydrocortisone 50mg and IV Midodrine one dose due to concern with hypotension; normotensive since - Negative MRSA nares (Vanc was D/C) - CXR: left midlung and left basilar consolidation, layering left pleural effusion, cardiomegaly - severity of PNA calculated by PSI on admission: 117 (Risk Class IV, 8.2-9.3% mortality) CURB-65 on admission: 3 (Severe Risk) -- recommend inpatient admission with telemetry - blood cultures pending, continue zosyn for anaerobic & pseudomonal coverage while investigating causes of PNA Hypoxia - secondary to PNA as above - monitor O2 requirements with goal >89% O2 Sat, wean as able. currently on 4L NC - Wells PE score 3.0 on admission; on heparin for DVT prophylaxis Achalasia, Subtype II Had endoscopy swallow study with [facility] 05/21/2021. Summary: abnormal manometric study consistent with type II achalasia per [place] classification 4.0. Recs at time were minimize/d/c narcotics, CT imaging of chest/abdm and referral for endoscopy myotomy (POEM), pneumatic dilation, or surgical myotomy - Ordered speech eval -- recommended elevated HOB, GI consultation - Will follow endo reqs and order CT chest noncon - Follow-up with [facility] endoscopy outpatient - anaerobic PNA coverage as above with concern for silent aspiration Acute Kidney Infection; acute BUN 33 Cr 1.73. Baseline Cr 0.8. - s/p 3L bolus in ED - Held ACEi - trend daily BMPs S/P lumbar spine operation; Surgery 06/15 Underwent lumbar spine surgery on 06/15 from T12-L2 by Dr. Stallworth. Has concerns of pain. - Pain management:home Neurontin, PRN Oxycodone, PRN Morphine Type 2 Diabetes Mellitus; chronic Currently on sliding scale short acting insulin. Also elevated due to steroid d ose. Blood sugars have been in 230-250s. - Cont short acting ACHS - Cont following sugars and add long acting if needed Chronic Disease Management -COPD: duo nebs ordered -SHELDON on CPAP: CPAP HS -HTN: hold ACEi, Lisinopril, Diltiazem while hypotensive -GERD: Pepcid 20mg BID -RLS: Mirapex 1mg PO HS -Depression: home Cymbalta 90mg Dispo: PCU FEN/GI: Diabetic diet Code: Full DVT PPX: Heparin 5,000 units SQ Q12 (2) MATT (acute kidney injury): Plan: (3) S/P lumbar spine operation: (4) COPD (chronic obstructive pulmonary disease): (5) SHELDON on CPAP: (6) Depression: (7) Diabetes mellitus type 2 in obese: (8) HTN (hypertension), benign: (9) DVT prophylaxis: Admission and Anticipated Discharge Date Admission Date: June 22, 2021 Supervising Physician Co-Signing Physician Notes Medical Student Supervision Note: I was personally present during medical student patient encounter and independently interviewed and examined the patient and verified the calderon history and physical, reviewed labs and image studies, discussed the case with Diana Miguel and agree with the findings and care plan. Sepsis sec to aspiration pneumonia in setting of Achalasia type II - IV zosyn. follow cultures. speech therapy consult. Hypoxia- O2 support Subjective Silvia Church is a 76F with esophageal dysmotility, T2DM, COPD who is post-op day 8 (Surgery: 06/15) from a lumbar spine procedure. She presented to the ED on 06/22 evening with shortness of breath, nausea/vomiting, diaphoresis, hypotension (lowest 70s-80s/40s), and hypoxia (80s). CXR suggestive of left lower lobe pneumonia. She was given one dose of hydrocortisone IV and midodrine IV. Her vitals have remained stable since 06/23 at 3AM. When discussing with Ms. Hernandez this morning, she says she feels significantly better. She says her breathing has significantly improved and her cough has improved. Still complains of some back pain with shooting sciatic pain (2/2 to chronic back pain/surgery) which she rates as 9/10. Does complain of a diffuse front headache. She looked very comfortable sitting at edge of bed eating her breakfast this morning. She does complain of esophageal spasms and she oftentimes chokes on food. In May 2021, she had endoscopy swallow study with [facility] and was diagnosed with type 2 Achalasia. She is supposed to go to [place] for a procedure for this in the future. Social History: A retired who lives in [place]. She has 6 children; most who live in the area. She is recent former smoker (quit 13 days ago). Does not have any alcohol use. She is vaccinated against Covid-19 x3. In her freetime, she does yardwork, plays with her puppy Ralph, and her grandchildren. She is having no nausea or vomiting this morning. No chest pain. No shortness of breath. Review of Systems Review of Systems: +Headache +Lightheadedness No SOB. No CP. No fever. No chills. Physical Exam Physical Exam: General: No acute distress, sitting comfortable at side of bed, cooperative, plesant HEENT: normocephalic, atraumatic Cardiac: Regular rate and rhythm, no murmurs, rubs, gallops, no JVD, no edema Pulm: Diffuse rhonchorous breath sounds in upper [place] bilaterally, decreased sounds in left lower lobe Abdom: soft, non-tender to palpation Neurologic exam: A&Ox3, no focal loss of strength Psychological: No overt anxiety or depression Results & Data Results & Data ([facility]) Vital Signs (Past 12 Hours) Vital Signs Temp Pulse Pulse Pulse Resp BP BP 06/23/21 05:30 37.0 C 74 20 109/59 L 06/23/21 05:00 37.0 C 65 18 107/61 06/23/21 04:30 37.0 C 67 19 107/54 L 06/23/21 04:00 36.6 C 68 21 94/50 L 06/23/21 03:49 70 21 06/23/21 03:35 70 25 H 107/56 L 06/23/21 03:30 77 22 111/52 L 06/23/21 03:00 37.0 C 68 83 22 92/46 L 107/56 L 06/23/21 02:30 71 20 87/43 L 06/23/21 02:00 74 20 78/42 L 06/23/21 01:30 78 22 88/46 L 06/23/21 01:08 89 24 06/23/21 01:01 82 23 89/46 L 06/23/21 00:30 82 23 86/44 L 06/23/21 00:00 84 25 H 84/38 L 06/22/21 23:52 87 24 82/41 L 06/22/21 23:45 84 25 H 79/47 L 06/22/21 23:30 88 24 90/53 L 06/22/21 23:29 87 26 H 06/22/21 23:15 90 26 H 87/51 L 06/22/21 23:12 90 26 H 80/50 L 06/22/21 23:11 37.3 C 90 24 80/50 L 06/22/21 23:04 88 24 76/49 L 06/22/21 23:00 87 26 H 76/49 L 06/22/21 22:59 87 27 H 82/49 L 06/22/21 22:43 88 06/22/21 22:41 88 24 81/45 L 06/22/21 22:31 93 H 30 H 85/49 L 06/22/21 22:30 37.0 C 93 H 28 H 85/49 L 06/22/21 22:17 97 H 16 88/55 L 06/22/21 20:11 06/22/21 19:59 102 H 06/22/21 19:33 36.5 C 18 93/62 L Pulse Ox 06/23/21 05:30 94 06/23/21 05:00 93 06/23/21 04:30 92 06/23/21 04:00 92 06/23/21 03:49 96 06/23/21 03:35 92 06/23/21 03:30 90 06/23/21 03:00 95 06/23/21 02:30 94 06/23/21 02:00 90 06/23/21 01:30 90 06/23/21 01:08 95 06/23/21 01:01 85 L 06/23/21 00:30 91 06/23/21 00:00 91 06/22/21 23:52 93 06/22/21 23:45 94 06/22/21 23:30 93 06/22/21 23:29 91 06/22/21 23:15 89 L 06/22/21 23:12 89 L 06/22/21 23:11 89 L 06/22/21 23:04 91 06/22/21 23:00 90 06/22/21 22:59 90 06/22/21 22:43 06/22/21 22:41 89 L 06/22/21 22:31 06/22/21 22:30 90 06/22/21 22:17 06/22/21 20:11 82 L 06/22/21 19:59 82 L 06/22/21 19:33 (1) COPD (chronic obstructive pulmonary disease) COPD type: COPD with acute exacerbation Qualified Code(s): J44.1 - Chronic obstructive pulmonary disease with (acute) exacerbation
[2021-06-23] MEDS: ALBUT/IPRATROP 3MG/0.5MG NEB 3 ML VIAL NEB SCH ×4 (07:14→19:31)
[2021-06-23] MEDS: PANTOprazole 40 MG in SYRINGE 0 ML IV SCH ×2 (08:03→20:55)
[2021-06-23] MEDS: GABAPENTIN 600 MG TAB PO SCH ×3 (08:03→20:54)
[2021-06-23] MEDS: DULoxetine HCL 30 MG CAP PO SCH (08:04)
[2021-06-23] MEDS: FAMOTIDINE 20 MG TAB PO SCH ×2 (08:04→20:55)
[2021-06-23] MEDS: HEPARIN SOD 5,000 UNIT/0.5 ML VIAL SQ SCH ×2 (08:04→20:56)
[2021-06-23] MEDS: DULoxetine HCL 60 MG CAP PO SCH (08:04)
[2021-06-23] MEDS: guaiFENesin 600 MG TABCR PO SCH ×2 (08:04→20:55)
[2021-06-23] MEDS: INSULIN ASPART PER UNIT SC SCH ×4 (08:10→20:55)
[2021-06-23] MEDS ORDERED: lisinopril 20 MG TAB PO SCH (09:00)
[2021-06-23] MEDS ORDERED: dilTIAZem HCL 180 MG CAPCR PO SCH (09:00)
--- NOTE | 2021-06-23 15:16 | Electrocardiogram Report ---
Test Reason : Blood Pressure : / mmHG Vent. Rate : 067 BPM Atrial Rate : 067 BPM P-R Int : 168 ms QRS Dur : 088 ms QT Int : 428 ms P-R-T Axes : 092 -14 064 degrees QTc Int : 452 ms Normal sinus rhythm with sinus arrhythmia Low voltage QRS Borderline Criteria for Old Septal infarct Abnormal ECG When compared with ECG of 22-JUN-2021 19:59, Premature supraventricular complexes are no longer Present Vent. rate has decreased BY 40 BPM Borderline Criteria for Septal infarct is now Present Confirmed by Joss King ([id number]) on 06/23/2021 3:15:30 PM Referred By: REFERRED SELF Confirmed By:Joss King
--- NOTE | 2021-06-23 15:45 | Electrocardiogram Report ---
Test Reason : Blood Pressure : / mmHG Vent. Rate : 107 BPM Atrial Rate : 107 BPM P-R Int : 134 ms QRS Dur : 080 ms QT Int : 318 ms P-R-T Axes : 000 -40 057 degrees QTc Int : 424 ms Sinus tachycardia with Premature supraventricular complexes Left axis deviation Nonspecific T wave abnormality Lateral leads Abnormal ECG When compared with ECG of 26-MAY-2021 14:25, Premature supraventricular complexes are now Present Confirmed by Joss King ([id number]) on 06/23/2021 3:45:14 PM Referred By: REFERRED SELF Confirmed By:Joss King
--- NOTE | 2021-06-23 16:27 | CT Scan Report ---
CT chest diagnostic wo con CLINICAL HISTORY: Dysphagia. Suspicion of left lung pneumonia. CT to further evaluate. COMPARISON STUDY: Portable chest from 06/22/2021 CT DOSE: 382.87 mGy.cm TECHNIQUE: Standard CT of the Chest was performed without IV contrast. A dose lowering technique was utilized adhering to the principles of ALARA. FINDINGS: Esophagus: Esophagus is moderately dilated throughout its course within the chest with fluid level pr esent and debris seen within its lumen characteristic of food stuff. There is narrowing at the GE natasha ction and the findings are characteristic of achalasia. Endoscopy may be helpful for further evaluati on. Airway: The airway is clear. No endobronchial lesion is identified. Lungs: There are confluent alveolar opacity is present within the lateral lingular segment of the lef t upper lobe and at the left lung base with air bronchograms present. The findings are characteristic of the presence of pneumonia. Calcified granulomas in the right lung base. There is minimal right basilar atelectasis. Right lung i s otherwise clear. Pleura: There is no evidence for pleural effusion. There is no evidence for pneumothorax. Mediastinum: There is no evidence for pathologic adenopathy on these limited noncontrast images. The heart size is within normal limits. There is coronary artery calcification. The thoracic aorta is wit hin normal limits. Atherosclerotic calcification is present. There is no evidence for pericardial eff usion. Upper abdomen: The adrenal glands are normal bilaterally. Osseous structures: There is no acute osseous pathology. IMPRESSION: 1. CT confirms the presence of alveolar opacities within the lateral lingular segment left upper lobe and within the left lower lobe characteristic of pneumonia. 2. There is no associated pleural effusion. 3. There is evidence for moderate achalasia with fluid and debris present within the esophagus. There is narrowing at the GE junction and follow-up endoscopy may be helpful for further evaluation. The p ossibility of an aspiration pneumonia should be considered. 4. Additional nonacute findings are delineated above. ACT 112: Negative or not required by law. Electronically signed by: Mani Palm M.D. 06/23/2021 4:25 PM
[2021-06-23] MEDS: ACETAMINOPHEN 325 MG TAB PO PRN (16:56)
[2021-06-23] MEDS: oxyCODONE HCL IR 5 MG TAB (IMMEDIATE RELEASE) PO PRN (20:54)
[2021-06-23] MEDS: PRAMIPEXOLE DIHYDROCHLO 0.5 MG TAB PO SCH (20:55)
[2021-06-23] MEDS: NICOTINE 21 MG/24 HR TDSY TD SCH (21:06)
[2021-06-23] MEDS ORDERED: ceFAZolin 2000MG 2,000 MG/15 ML SYR IV ONE (22:00)
[2021-06-24] MEDS: PIPERACILLIN/TAZOBACTAM 3.375 GM in DEXTROSE 5% 100 ML IV SCH ×2 (02:39→09:49)
[2021-06-24] MEDS: oxyCODONE HCL IR 5 MG TAB (IMMEDIATE RELEASE) PO PRN ×3 (03:51→21:12)
[2021-06-24] MEDS: MELATONIN 3 MG TAB PO PRN ×2 (04:35→21:19)
[2021-06-24 06:55] LABS: Hematocrit (blood only) 30.3 % (37-47); Hemoglobin 10.1 g/dL (12.0-16.0); Mean Corpuscular Hemoglobin 29.7 pg (25-34); Mean Corpuscular Hgb Conc 33.3 g/dL (32-36); Mean Corpuscular Volume 89.1 fL (80-100); Mean Platelet Volume 9.5 fL (7.4-10.4); Platelet Count 359 K/uL (130-400); RDW Coefficient of Variation 14.4 % (11.5-14.5); RDW Standard Deviation 47.3 fL (36.4-46.3); White Blood Count 20.11 K/uL (4.8-10.8)
[2021-06-24] MEDS: ALBUT/IPRATROP 3MG/0.5MG NEB 3 ML VIAL NEB SCH ×4 (07:04→19:29)
--- NOTE | 2021-06-24 07:24 | Hospitalist Progress Note ---
Date of Service June 24, 2021 Assessment & Plan (1) Pneumonia: Plan: Sepsis 2/2 Pneumonia; concern for Aspiration; Improving - Treated with Zosyn and clinically improving - Given patient's achalasia, aspiration pneumonia likely diagnosis - Switch Zosyn to Unasyn (switch to Augmentin PO on discharge); no longer concerned of pseudomonal Positive Blood Culture after 24 hours - GP Cocci in clusters grew in 1 vial after 24 hours; likely a contaminate - Patient clinically improving Hypoxia; improving - secondary to PNA as above and chronic COPD - Add Fluticasone daily inhaler for optimal COPD control; continue on discharge - monitor O2 requirements with goal >89% O2 Sat, wean as able. currently on 3L NC Achalasia, Subtype II; chronic Had endoscopy swallow study with [facility] 05/21/2021 and diagnosed w/ achalasia - Speech eval recs -- recommended elevated HOB, GI consultation - CT chest-- alveolar opacities, moderate achalasia, narrowing at GE junction - Follow-up with [facility] endoscopy outpatient - anaerobic PNA coverage as above with concern for silent aspiration Acute Kidney Infection; acute Cr 2.00 and BUN 39; (increased from 06/23: BUN 33 Cr 1.73). Baseline Cr 0.8. - s/p 3L bolus in ED - Held ACEi - Encourage more fluid PO intake - trend daily BMPs S/P lumbar spine operation; Surgery 06/15 Underwent lumbar spine surgery on 06/15 from T12-L2 by Dr. Stallworth. Says pain well managed. - Pain management:home Neurontin, PRN Oxycodone, PRN Morphine Type 2 Diabetes Mellitus; chronic Currently on sliding scale short acting insulin. Also elevated due to steroid dose. Blood sugars have been in upper 100s. - Cont short acting ACHS - Cont following sugars and add long acting if needed Chronic Disease Management -COPD: duo nebs ordered; will order Fluticasone inhaler on discharge -SHELDON on CPAP: CPAP HS -HTN: hold ACEi, Lisinopril, Diltiazem while hypotensive -GERD: Pepcid 20mg BID -RLS: Mirapex 1mg PO HS -Depression: home Cymbalta 90mg Dispo: PCU FEN/GI: Diabetic diet Code: Full DVT PPX: Heparin 5,000 units SQ Q12 Admission and Anticipated Discharge Date Admission Date: June 22, 2021 Supervising Physician Co-Signing Physician Notes Medical Student Supervision Note: I was personally present during medical student patient encounter and independently interviewed and examined the patient and verified the calderon history and physical, reviewed labs and image studies, discussed the case with Diana Miguel and agree with the findings and care plan. Sepsis sec to aspiration pneumonia in setting of Achalasia type II - clinically improving. IV zosyn - switch to unasyn. speech therapy consult input appreciated - reflux precaution to Keep HOB 30 degree or higher. frequent smaller/softer diet. Hypoxia- O2 support. will need 2 step before discharge COPD - stable Recent back surgery - wound consult for dressing Subjective Ms. Church is a 76F with esophageal dysmotility and post-op from spinal surgery (surgery 06/15). Admitted to hospital for concern of sepsis due to pneumonia, likely aspiration. She has clinically improved since admission. Overnight, Ms. Church was found to have positive blood cx of GP cocci in clusters (1 of 4 vials), likely to be contamination at this time. Patient was given dose of IV Ancef; now just on IV Zosyn. This morning, Silvia is doing very well. Has no concerns with breathing. No SOB. No CP. Says her back pain fluctuates but pain is well controlled. Silvia complains that her bandage on her back (from surgery) smells very bad. Wound care has been consulted. Dr. Stallworth (surgeon) notified. Review of Systems Review of Systems: per subjective Physical Exam Physical Exam: General: No acute distress, sitting comfortable at side of bed, cooperative, pleasant Cardiac: Regular rate and rhythm, no murmurs, rubs, gallops, no JVD, no edema Pulm: Diffuse crackles Abdom: soft, non-tender to palpation Neurologic exam: A&Ox3, no focal loss of strength Skin: covered surgical scar, ecchymosis above buttock, no warmth, no swelling Psychological: No overt anxiety or depression Results & Data Results & Data ([facility]) Vital Signs (Past 12 Hours) Vital Signs Temp Pulse Pulse Resp BP Pulse Ox 06/24/21 07:04 66 18 96 06/24/21 03:49 36.7 C 70 16 117/57 L 93 06/23/21 23:00 72 06/23/21 22:48 36.7 C 74 22 108/58 L 95 06/23/21 22:15 78 22 95 06/23/21 19:32 82 20 93
[2021-06-24 07:42] LABS: BUN Creatinine Ratio 19.5 (10-20); Calcium 7.7 mg/dl (8.5-10.1); Creatinine Clr Calc Pharmacy 22.3 ml/min; Est GFR (African American) 27.2 ml/min; Est GFR (Non-African American) 23.5 ml/min; Potassium 3.7 mmol/L (3.5-5.1)
[2021-06-24] MEDS: DULoxetine HCL 30 MG CAP PO SCH (08:18)
[2021-06-24] MEDS: INSULIN ASPART PER UNIT SC SCH ×4 (08:18→21:09)
[2021-06-24] MEDS: PANTOprazole 40 MG in SYRINGE 0 ML IV SCH ×2 (08:19→21:07)
[2021-06-24] MEDS: DULoxetine HCL 60 MG CAP PO SCH (08:19)
[2021-06-24] MEDS: GABAPENTIN 600 MG TAB PO SCH ×3 (08:19→21:08)
[2021-06-24] MEDS: HEPARIN SOD 5,000 UNIT/0.5 ML VIAL SQ SCH ×2 (08:19→21:08)
[2021-06-24] MEDS: FAMOTIDINE 20 MG TAB PO SCH ×2 (08:19→21:06)
[2021-06-24] MEDS: guaiFENesin 600 MG TABCR PO SCH ×2 (08:19→21:58)
[2021-06-24] MEDS: NICOTINE 21 MG/24 HR TDSY TD SCH (08:21)
[2021-06-24] MEDS ORDERED: ceFAZolin 1000MG 1,000 MG/7.5 ML SYR IV SCH (10:00)
[2021-06-24] MEDS ORDERED: PHARMACY GLYCEMIC MGMT CONSULT PRN (11:33)
[2021-06-24] MEDS ORDERED: INSULIN GLARGINE SOLOSTAR 100 UNITS/ML 3 ML PEN SC SCH (12:15)
--- NOTE | 2021-06-24 14:16 | Pharmacy Report ---
Pharmacy Glycemic Short Note 2 - Date of Service June 24, 2021 - Glycemic Short BSG Results (Last 24 hours): 06/23/21 06/23/21 06/24/21 16:16 20:12 06:25 Glucose 190 H POC Glucose 151 H 178 H 06/24/21 06/24/21 07:19 11:13 Glucose POC Glucose 196 H 296 H OUTPATIENT ANTIDIABETIC REGIMEN: * metformin 1000mg BID * A1c: 8.4% 06-16-21 ASSESSMENT: * Patient admitted for possible aspiration pneumonia, experiencing hyperglycemia (today's BSG 196-296 mg/dL). Patient is also receiving Zosyn. A one time dose of hydrocortisone was given early yesterday morning. * Patient was already initiated on a NovoLog regimen. Will tighten CR and a one time dose of lantus was added at lunchtime. Will reassess need for further basal orders tomorrow morning. * Patient is tolerating a diet PLAN FOR INPATIENT GLYCEMIC CONTROL: * Hold outpatient oral diabetes medications * Basal insulin * Lantus 20 units SQ X 1 * Bolus insulin * NovoLog per scale ACHS or Q6hrs while NPO and overnight checks * Goal Range: Low 110 mg/dL - High 140 mg/dL * Correction Factor: 20 mg/dL/unit * Nutritional / Prandial insulin per carb ratio of 1 unit per 9 grams CHO consumed
[2021-06-24] MEDS: AMPICILLIN/SULBACTAM SOD 1,500 MG in 0.9 % SODIUM CHLORIDE 100 ML IV SCH (16:24)
[2021-06-24] MEDS: ACETAMINOPHEN 325 MG TAB PO PRN (18:03)
[2021-06-24] MEDS: PRAMIPEXOLE DIHYDROCHLO 0.5 MG TAB PO SCH (21:07)
[2021-06-24] MEDS ORDERED: oxyCODONE HCL IR 5 MG TAB (IMMEDIATE RELEASE) PO STA (21:08)
[2021-06-25] MEDS: INSULIN ASPART PER UNIT SC SCH ×4 (01:00→12:40)
[2021-06-25] MEDS: AMPICILLIN/SULBACTAM SOD 1,500 MG in 0.9 % SODIUM CHLORIDE 100 ML IV SCH (03:53)
[2021-06-25] MEDS: oxyCODONE HCL IR 5 MG TAB (IMMEDIATE RELEASE) PO PRN ×2 (06:28→17:11)
[2021-06-25] MEDS: ALBUT/IPRATROP 3MG/0.5MG NEB 3 ML VIAL NEB SCH (07:20)
[2021-06-25] MEDS: guaiFENesin 600 MG TABCR PO SCH (07:48)
[2021-06-25] MEDS: HEPARIN SOD 5,000 UNIT/0.5 ML VIAL SQ SCH (07:48)
[2021-06-25] MEDS: ACETAMINOPHEN 325 MG TAB PO PRN ×2 (07:48→13:22)
[2021-06-25] MEDS: DULoxetine HCL 60 MG CAP PO SCH (07:49)
[2021-06-25] MEDS: FAMOTIDINE 20 MG TAB PO SCH (07:49)
[2021-06-25] MEDS: DULoxetine HCL 30 MG CAP PO SCH (07:49)
[2021-06-25] MEDS: NICOTINE 21 MG/24 HR TDSY TD SCH (07:50)
[2021-06-25] MEDS: GABAPENTIN 600 MG TAB PO SCH ×2 (07:50→13:19)
[2021-06-25] MEDS: PANTOprazole 40 MG in SYRINGE 0 ML IV SCH (07:50)
--- NOTE | 2021-06-25 07:51 | Hospitalist Progress Note ---
Date of Service June 25, 2021 Assessment & Plan (1) Pneumonia: Plan: Sepsis 2/2 Pneumonia; concern for Aspiration; Improving - Given patient's achalasia, aspiration pneumonia likely diagnosis; encourage slow and small bites - One positive blood culture (staph, coag neg) -- likely contaminate; improving on current antibiotics; no new growth on blood cultures - On Unasyn (plan for Augmentin on discharge) Hypoxia; improving - secondary to PNA as above and chronic COPD - Add Fluticasone daily inhaler for optimal COPD control; continue on discharge - Trial off O2 today; monitor sats - monitor O2 requirements with goal >89% O2 Sat, wean as able. currently on 3L NC Achalasia, Subtype II; chronic Had endoscopy swallow study with [facility] 05/21/2021 and diagnosed w/ achalasia - Speech eval recs -- recommended elevated HOB, GI consultation - CT chest-- alveolar opacities, moderate achalasia, narrowing at GE junction - Follow-up with [facility] endoscopy outpatient Acute Kidney Injury; improving Cr 1.45 and BUN 28; (improved from 06/23: BUN 33 Cr 1.73). Baseline Cr 0.8. - s/p 3L bolus in ED - Held ACEi - Encourage more fluid PO intake - trend daily BMPs S/P lumbar spine operation; Surgery 06/15 Underwent lumbar spine surgery on 06/15 from T12-L2 by Dr. Stallworth. Says pain well managed. - Pain management:home Neurontin, PRN Oxycodone, PRN Morphine Type 2 Diabetes Mellitus; chronic Currently on sliding scale short acting insulin. Also elevated due to steroid dose. Blood sugars have been in upper 100s. - Cont short acting ACHS - Cont following sugars and add long acting if needed Chronic Disease Management -COPD: duo nebs ordered; will order Fluticasone inhaler on discharge -SHELDON on CPAP: CPAP HS -HTN: hold ACEi, Lisinopril, Diltiazem while hypotensive -GERD: Pepcid 20mg BID -RLS: Mirapex 1mg PO HS -Depression: home Cymbalta 90mg Dispo: PCU FEN/GI: Diabetic diet Code: Full DVT PPX: Heparin 5,000 units SQ Q12 Admission and Anticipated Discharge Date Admission Date: June 22, 2021 Subjective Ms. Church is a 76F with esophageal dysmotility and post-op from spinal surgery (surgery 06/15). Admitted to hospital for concern of sepsis due to pneumonia, likely aspiration. Continues to improve since admission. This morning, Ms. Church is doing very well. She says she's "feeling good" and her breathing continues to improve. She does continue to have some regurgiation/emesis of food particles. She says this is common for her. Does still endorse some back pain but feels like her medication management is sufficient. Says she "needs to work with her pain" and that the hospital bed makes it worse. Wound care re-dressed her surgical scar yesterday. No signs of infection. Endorses some lightheadedness this morning. No syncopal events or falls. Continuing to drink fluids. No SOB. No CP. No abdominal pain. Stooling and voiding without difficulty. Review of Systems Review of Systems: per subjective. Physical Exam Physical Exam: General: No acute distress, sitting comfortable at side of bed, cooperative, pleasant Cardiac: Regular rate and rhythm, no murmurs, rubs, gallops, no JVD, no edema Pulm: diffuse crackles Abdom: soft, non-tender to palpation Neurologic exam: A&Ox3, no focal loss of strength Skin: covered surgical scar, ecchymosis above buttock, no warmth, no swelling Psychological: No overt anxiety or depression Results & Data Results & Data ([facility]) Vital Signs (Past 12 Hours) Vital Signs Temp Pulse Resp BP Pulse Ox Pulse Ox 06/25/21 07:20 70 18 95 06/25/21 07:14 36.7 C 73 16 166/75 H 94 06/24/21 22:10 36.6 C 76 16 150/72 H 95 95
[2021-06-25] MEDS ORDERED: oxyCODONE HCL IR 5 MG TAB (IMMEDIATE RELEASE) PO STA (07:54)
[2021-06-25 08:10] LABS: Hematocrit (blood only) 31.8 % (37-47); Hemoglobin 10.6 g/dL (12.0-16.0); Mean Corpuscular Hemoglobin 29.7 pg (25-34); Mean Corpuscular Hgb Conc 33.3 g/dL (32-36); Mean Corpuscular Volume 89.1 fL (80-100); Mean Platelet Volume 9.4 fL (7.4-10.4); Platelet Count 372 K/uL (130-400); RDW Coefficient of Variation 14.5 % (11.5-14.5); RDW Standard Deviation 47.5 fL (36.4-46.3); Red Blood Count 3.57 M/uL (4.2-5.4); White Blood Count 13.73 K/uL (4.8-10.8)
[2021-06-25 08:34] LABS: BUN Creatinine Ratio 19.3 (10-20); Calcium 8.4 mg/dl (8.5-10.1); Creatinine Clr Calc Pharmacy 30.7 ml/min; Est GFR (African American) 40.2 ml/min; Est GFR (Non-African American) 34.6 ml/min; Magnesium 1.9 mg/dl (1.7-2.4); Potassium 4.1 mmol/L (3.5-5.1)
[2021-06-25] MEDS ORDERED: INSULIN GLARGINE SOLOSTAR 100 UNITS/ML 3 ML PEN SC SCH (09:00)
[2021-06-25] MEDS ORDERED: ALBUT/IPRATROP 3MG/0.5MG NEB 3 ML VIAL NEB PRN (09:26)
[2021-06-25] MEDS ORDERED: AMPICILLIN/SULBACTAM SOD 1,500 MG in 0.9 % SODIUM CHLORIDE 100 ML IV SCH (14:00)
--- NOTE | 2021-06-25 16:19 | Discharge Summary ---
Date of Service June 25, 2021 Admission HPI Per Admitting Provider 76-year-old female discharged June 21 after T12 L2 lumbar decompression and fusion by Dr. Stallworth. Her hospital stay did include some periods of hypoxia which was attributed to her COPD. She represents tonight with acute on chronic respiratory failure with hypoxia and what appears to be a left-sided pulmonary infiltrate. The patient has a history of a Schatzki's ring and previous problems with aspiration therefore this may be aspiration pneumonia. On admission the patient is a white count of 15.69 Covid testing is pending however with her operation she was tested negative on on 06/15/2021. Patient states she is got a productive cough at times coughing until she vomits the cough is usually green-yellow mucus. Is of some chest discomfort mostly right lateral. Had no wheezing Admission Exam (Per Admitting) Constitutional The patient appeared well nourished and normally developed. Vital signs as documented. Head exam is normocephalic atraumatic Neck is without JVD, thyromegaly, or carotid bruits. Lungs are diminished to absent breath sounds at the left base Cardiac exam, Rhythm is regular.. No murmurs, rubs or gallops. Abdominal exam reveals normal bowel sounds, soft non tender, no masses Extremities are nonedematous and both pedal pulses are present Neurologic exam is alert and oriented, no focal loss of strength or sensation Skin is with well healing lumbar incision Psychologically is without concerns for anxiety or depression.. Discharge Data Consultations 06/22/21 21:32 ED Decision to Admit Stat Hospital Course (1) Pneumonia: Ms. Silvia Church is a 76 female with achalasia type 2, COPD, and recent spinal surgery (operation: 06/15/21) She was admitted to [facility] ([facility]) on 06/19 with concern for sepsis secondary to aspiration pneumonia and hypoxia requiring oxygen supplementation. Ms. Church clinically improved with antibiotics without complication. Her back surgery is healing without complications. However, she is aware she is at risk for aspiration pneumonia in the future. Ms. Church is set to follow-up with [facility] with GI for management of achalasia. Medication Changes: -COPD: Added fluticasone inhaler for COPD management -No other changes to home medications New Imaging: CT Chest Impression (06/23/21): 1. CT confirms the presence of alveolar opacities within the lateral lingular segment left upper lobe and within the left lower lobe characteristic of pneumonia. 2. There is no associated pleural effusion. 3. There is evidence for moderate achalasia with fluid and debris present within the esophagus. There is narrowing at the GE junction and follow-up endoscopy may be helpful for further evaluation. The possibility of an aspiration pneumonia s hould be considered. 4. Additional nonacute findings are delineated above. Chest X-Ray Impression (06/22/21): 1. Left midlung and left basilar consolidation suggestive of pneumonia. 2. Layering left pleural effusion. 3. Cardiomegaly. On Discharge: -Augmentin PO 2 days (Last day: 06/27) -COPD Management: We added Fluticasone inhaler for COPD management -Passed two-step, no oxygen requirement on discharge. Sepsis 2/2 Pneumonia; concern for Aspiration - Given patient's achalasia, aspiration pneumonia likely diagnosis; encourage slow and small bites - One positive blood culture (staph, coag neg) -- likely contaminate; improving on current antibiotics; no new growth on blood cultures - Was on Zosyn then Unasyn and will be on PO Augmentin on discharge Hypoxia; resolved - Ms. Church required O2 supplementation while inpatient; successfully weaned off and maintaing sats on discharge Achalasia, Subtype II; chronic Had endoscopy swallow study with [facility] 05/21/2021 and diagnosed w/ achalasia - Follow-up with [facility] endoscopy outpatient S/P lumbar spine operation; Surgery 06/15 Underwent lumbar spine surgery on 06/15 from T12-L2 by Dr. Stallworth. Says pain well managed. - Pain management:home Neurontin, PRN Oxycodone, PRN Morphine - Wound care changed dressing on 06/24 and had no concerns with healing Type 2 Diabetes Mellitus; chronic Currently on sliding scale short acting insulin. Also elevated due to steroid dose. Blood sugars have been in upper 100s. - Cont short acting ACHS - Cont following sugars and add long acting if needed Supervising Physician Co-Signing Physician Notes Medical Student Supervision Note: I was personally present during medical student patient encounter and independently interviewed and examined the patient and verified the calderon history and physical, reviewed labs and image studies, discussed the case with Diana Miguel and agree with the findings and care plan. Felda much better this am. breathing back to baseline. walked around without any difficulty o/e - G - pleasant AAOx3 heart - regular lung - coarse rhonchi. Sepsis sec to aspiration pneumonia due to achalasia - improved. finish abx course. [employer] input appreciated.
== END 2021-06-25 17:20 | disposition home or self-care (01) | DRG 871 ==
LOC: ED 19:20 → SUATTDRO 21:24 → 2E 21:24 → 3E 06-24 22:10

== ENCOUNTER 2021-06-29 15:55 | Inpatient (IN) ==
[2021-06-29] MEDS ORDERED: ALBUT/IPRATROP 3MG/0.5MG NEB 3 ML VIAL NEB STA (16:09)
--- NOTE | 2021-06-29 16:18 | Emergency Department Note ---
Impression & Plan Respiratory failure, Multifocal pneumonia, Hallucination ED Provider Note Provider: Lew Deluca MD DATE OF SERVICE: 06/29/2021 CHIEF COMPLAINT: Hallucinations, shortness of breath HISTORY OF PRESENT ILLNESS: Patient is a 76-year-old female history of aspiration pneumonia and recent admission for such, AAA, COPD with a long history of smoking not on home oxygen, esophageal dysmotility, type 2 diabetes, and hypertension presenting here today brought by daughter due to shortness of breath and some hallucinations. Patient was discharged about 4 days ago and completed a course of antibiotics for aspiration pneumonia. Patient is chronic issues with aspiration. No trauma or falls. Patient states he is felt very fatigued at times had visual hallucinations and the daughter confirms this. Oxygen level was noted to be in the 80s at home and in the 70s in triage. She felt short of breath but denies significant pain. Denies back pain either. Denies leg swelling. States has been eating well. She denies taking too many pain pills. REVIEW OF SYSTEMS: A total of 10 review of systems was obtained and negative except as stated above in the HPI. PAST MEDICAL HISTORY: As noted above MEDICATIONS: Reviewed home medications which do not include home oxygen SOCIAL HISTORY: Quit smoking 3 weeks ago but otherwise a longtime smoker PHYSICAL EXAM: GENERAL: alert and oriented in no acute distress on stretcher Head: normocephalic and atraumatic EYES: No injection, discharge or icterus. NECK: Trachea midline. Supple. ENT: Mucous membranes pink and moist. LUNGS: Airway patent. No retractions. Breath sounds with some diffuse wheeze and diminished bases HEART: Irregular tachycardic rate and rhythm. No chest wall tenderness ABDOMEN: Soft and non-tender, without guarding or rebound. SKIN: Acyanotic, warm, dry, without rashes EXTREMITIES: Without swelling, tenderness or deformity NEUROLOGICAL: No focal deficits moving all extremities to command No aphasia. No facial droop or slurred speech. EK bpm sinus tachycardia with occasional PVCs. No acute ST segment elev ation or depression noted with some artifact. QTC 435. CONTINUOUS CARDIAC MONITORING: was ordered and showed a heart rate of 90s-100s bpm in normal sinus rhythm to sinus tachycardia Patient's laboratory studies and imaging reviewed. Differential includes Infection, dehydration, metabolic abnormality, hypo/hyperglycemia, electrolyte disturbance, anemia, hypoxia, cardiac sources, intracerebral event, toxicologic, neurologic, as well as other pathologies. IMPRESSION/MEDICAL DECISION MAKING: Patient without focal deficits given the report of hallucinations and her age a CT that will be completed. Not on anticoagulation a CT of chest to be completed look for any PE and further evaluate possible pneumonia. History of chronic aspiration makes this very likely. VBG was sent. Question of the hallucinations are related to hypoxia and possibly hypercarbia. Blood work was sent including cultures. Given a DuoNeb but she does appear somewhat wheezy. Lower suspicion at this time for CHF given clinical exam. Lower suspicion for ACS but again EKG and troponin were completed White blood cell count is trending up. Negative COVID. Negative urinalysis. Procalcitonin 0.32. No troponin elevation. Mild hypomagnesemia of 1.6. Renal function seems to be improving compared to her most recent. No acidosis on VBG. Patient is still requiring 6 L of oxygen and on reevaluation the daughter states she still having some hallucinations. Given concerns for worsening pneumonia recent hospitalization covered with vancomycin and Zosyn here initially. MRSA swab ordered. CT the head as well as the chest again will be completed and per radiology report show no acute intracranial bleed. Findings consistent with multifocal pneumonia but no clear evidence of PE. Given oxygen requirement will require further care here at the hospital. Skin does also note some esophageal contents. Patient has a history of esophageal motility issues and has been following most recently at but has not been out of the hospital long enough for further outpatient treatment of this. DIAGNOSIS: Aspiration pneumonia, hypoxic respiratory failure, hallucinations DISPOSITION: Hospitalist will evaluate Patient was agreeable with this plan. Critical Care I have personally spent 33 minutes of critical care time in the direct management of this patient. This includes bedside care, interpretation of diagnostic studies, and testing, discussion with consultants, patient, and family members, and other required patient management activities. These 33 min utes is in excess of all separately billable procedures. 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 Dysphagia Esophageal dysmotility GERD (gastroesophageal reflux disease) History of esophageal dilatation HTN (hypertension), benign Hyperlipidemia Nausea & vomiting anytime eats or drinks, per pt and granddaughter was thought to be d/t mucus from smoking as does not happen when not smoking during hospitalizations Obesity Peptic ulcer disease (~2017) bleeding ulcer Peripheral neuropathy Restless leg syndrome Schatzki's ring Sleep apnea unable to tolerate cpap Weight loss, unintentional Surgical History History of bilateral tubal ligation History of carpal tunnel release Left History of cataract surgery bilateral History of colonoscopy History of esophagogastroduodenoscopy (EGD) History of lumbar fusion History of repair of rotator cuff Right S/P epidural steroid injection Family History Father Heart disease Brother Kidney disease Mother Gastric cancer Family/Other Testicular cancer Other No family history of adverse response to anesthesia Social History Smoking Status: Never smoker Tobacco Type: Cigarettes Age Started Using Tobacco: 11; Years Smoked: 63; Cigarettes Per Day: 20; Second Hand Exposure: No; Hx Alcohol Use: No Hx Substance Use: No Preferred Language: Malay Communication Ability: Effective Patient Intake Coordinator Required: No Beliefs That Will Affect Care: None marital status: / Current Living Situation: Family Current Living Situation Comment: home with son Feels Safe at Home: Yes Assistive Devices: Walker Allergies Allergies Allergy/AdvReac Type Severity Reaction Status Date / Time atorvastatin [From Lipitor] Allergy Intermediate Skin Rash Verified 06/29/21 17:37 morphine AdvReac Intermediate Nausea Verified 06/29/21 17:37 Home Meds Home Medications Medication Instructions Recorded Confirmed cholecalciferol (vitamin D3) 25 25 mcg PO QAM 05/03/20 06/29/21 mcg (1,000 unit) tablet (Vitamin D3) cyanocobalamin (vitamin B-12) 1,000 mcg PO QAM 05/03/20 06/29/21 1,000 mcg tablet (Vitamin B-12) diltiazem HCl 180 mg 180 mg PO QAM 05/03/20 06/29/21 capsule,extended release 24 hr duloxetine 30 mg capsule,delayed 30 mg PO QAM 05/03/20 06/29/21 release (Cymbalta) duloxetine 60 mg capsule,delayed 60 mg PO QAM 05/03/20 06/29/21 release fenofibrate micronized 134 mg 134 mg PO QPM 05/03/20 06/29/21 capsule gabapentin 600 mg tablet 600 mg PO TID 05/03/20 06/29/21 hydrochlorothiazide 25 mg tablet 25 mg PO QAM 05/03/20 06/29/21 lisinopril 40 mg tablet 40 mg PO QAM 05/03/20 06/29/21 metformin 500 mg tablet 1,000 mg PO BID 05/03/20 06/29/21 pramipexole 1 mg tablet (Mirapex) 1 mg PO HS 05/03/20 06/29/21 pravastatin 40 mg tablet 40 mg PO QAM 05/03/20 06/29/21 sucralfate 1 gram tablet (Carafate) 1 g PO ACHS PRN 05/03/20 06/29/21 albuterol sulfate 90 mcg/actuation 2 puff INHALATION Q3H PRN 11/08/20 06/29/21 aerosol inhaler umeclidinium 62.5 mcg-vilanterol 62.5 inh INHALATION QAM 11/08/20 06/29/21 25 mcg/actuation powdr for inhalation (Anoro Ellipta) diclofenac sodium 1 % topical gel 2 g TOPICAL QID PRN 11/16/20 06/29/21 oxycodone-acetaminophen 5 mg-325 1 tab PO Q6H PRN 05/22/21 06/29/21 mg tablet pantoprazole 40 mg tablet,delayed 40 mg PO BID 06/22/21 06/29/21 release Previous Rx's Medication Instructions Recorded famotidine 20 mg tablet 20 mg PO BID #14 tab 05/06/20 acetaminophen 325 mg tablet 650 mg PO Q4H PRN #30 tab 11/10/20 ondansetron HCl 4 mg tablet 4 mg PO Q6H #30 tab 03/02/21 (Zofran) oxycodone 5 mg tablet 5 mg PO Q6H PRN #30 tab 06/15/21 tramadol 50 mg tablet 50 mg PO Q6H PRN #30 tab 06/15/21 fluticasone furoate 100 2 inh INHALATION DAILY 30 Days #30 06/25/21 mcg/actuation blister powder for ea inhalation Results & Data (ED) Vital Signs Vital Signs - 24 hr 06/29/21 15:58 06/29/21 16:22 06/29/21 16:30 Temperature 36.8 C Temperature Source Temporal Artery Scan Pulse Rate 108 H 104 H 102 H Pulse Rate from SpO2 Sensor 104 H 103 H Pulse Rhythm Regular Pulse Strength Normal Respiratory Rate 20 29 H 27 H Respiratory Effort / Characteristics Non-Labored Spontaneous Respiratory Depth Normal Respiratory Pattern Regular Blood Pressure 122/72 155/63 H 111/74 Blood Pressure Mean 88 93 86 Blood Pressure Position Sitting Pulse Oximetry 75 L 95 96 Oxygen Delivery Method Room Air Room Air Oxymask Oxymask Oxygen Flow Rate 8 8 Sepsis Recent Fever Within 48 Hours No Sepsis New/Unexplained Change in Mental Status No Sepsis Action Taken by Nursing No Action Required Oxygen Flow Rate - Titration Pulse Oximetry Post Tiitration 06/29/21 16:33 06/29/21 16:47 06/29/21 17:16 Temperature Temperature Source Pulse Rate 103 H Pulse Rate from SpO2 Sensor 105 H Pulse Rhythm Pulse Strength Respiratory Rate 27 H Respiratory Effort / Characteristics Respiratory Depth Respiratory Pattern Blood Pressure 111/77 132/63 Blood Pressure Mean 88 86 Blood Pressure Position Pulse Oximetry 97 96 Oxygen Delivery Method Oxymask Oxygen Flow Rate 8 Sepsis Recent Fever Within 48 Hours Sepsis New/Unexplained Change in Mental Status Sepsis Action Taken by Nursing Oxygen Flow Rate - Titration 6 Pulse Oximetry Post Tiitration 93 06/29/21 17:32 06/29/21 18:20 06/29/21 18:30 Temperature Temperature Source Pulse Rate 94 H 91 H 87 Pulse Rate from SpO2 Sensor 94 H 86 Pulse Rhythm Pulse Strength Respiratory Rate 24 14 17 Respiratory Effort / Characteristics Respiratory Depth Respiratory Pattern Blood Pressure 124/67 Blood Pressure Mean 86 Blood Pressure Position Pulse Oximetry 94 94 Oxygen Delivery Method Oxygen Flow Rate Sepsis Recent Fever Within 48 Hours Sepsis New/Unexplained Change in Mental Status Sepsis Action Taken by Nursing Oxygen Flow Rate - Titration Pulse Oximetry Post Tiitration 06/29/21 19:00 06/29/21 19:32 06/29/21 20:00 Temperature Temperature Source Pulse Rate 88 86 87 Pulse Rate from SpO2 Sensor 88 86 Pulse Rhythm Pulse Strength Respiratory Rate 22 24 25 H Respiratory Effort / Characteristics Respiratory Depth Respiratory Pattern Blood Pressure 112/51 L 122/71 Blood Pressure Mean 71 88 Blood Pressure Position Pulse Oximetry 94 94 Oxygen Delivery Method Oxygen Flow Rate Sepsis Recent Fever Within 48 Hours Sepsis New/Unexplained Change in Mental Status Sepsis Action Taken by Nursing Oxygen Flow Rate - Titration Pulse Oximetry Post Tiitration Laboratory Data Result diagrams: 06/29/21 16:16 06/29/21 16:16 Lab Results 06/29/21 06/29/21 06/29/21 Range/Units 16:16 16:16 16:16 WBC 16.50 H (4.8-10.8) K/uL RBC 3.59 L (4.2-5.4) M/uL Hgb 10.8 L (12.0-16.0) g/dL Hct 32.5 L (37-47) % MCV 90.5 (80-100) fL MCH 30.1 (25-34) pg MCHC 33.2 (32-36) g/dL RDW Std Deviation 47.5 H (36.4-46.3) fL RDW Coeff of [place] 14.4 (11.5-14.5) % Plt Count 440 H (130-400) K/uL MPV 9.4 (7.4-10.4) fL Immature Gran % (Auto) 0.5 % Neut % (Auto) 88.4 % Lymph % (Auto) 6.3 % [place] % (Auto) 3.9 % Eos % (Auto) 0.8 % Baso % (Auto) 0.1 % Neut # (Auto) 14.58 H (1.4-6.5) K/uL Lymph # (Auto) 1.04 L (1.2-3.4) K/uL [place] # (Auto) 0.65 H (0.11-0.59) K/uL Eos # (Auto) 0.14 (0-0.5) K/uL Baso # (Auto) 0.01 (0-0.2) K/uL Immature Gran # (Auto) 0.08 H (0.00-0.02) K/uL PT 10.4 (9.0-12.0) Seconds INR 1.0 (0.9-1.1) VBG pH (7.36-7.41) VBG pCO2 (38-50) mmHg VBG pO2 mmHg VBG HCO3 mmol/L VBG O2 Saturation % VBG Base Excess mEq/L Barometric Pressure mm/Hg Sodium 136 (136-145) mmol/L Potassium 4.8 (3.5-5.1) mmol/L Chloride 100 (98-107) mmol/L Carbon Dioxide 29 (21-32) mmol/L Anion Gap 7 (3-11) BUN 25 H (6-23) mg/dl Creatinine 1.36 H (0.6-1.2) mg/dl Est Cr Clr Drug Dosing 35.6 ml/min Est GFR ( Amer) 43.4 ml/min Est GFR (Non-Af Amer) 37.4 ml/min BUN/Creatinine Ratio 18.4 (10-20) Glucose 184 H (70-99(Fasting)) mg/dl Lactate (0.4-2.0) mmol/L Calcium 9.5 (8.5-10.1) mg/dl Magnesium 1.6 L (1.7-2.4) mg/dl Total Bilirubin 0.6 (0.2-1.0) mg/dl AST 14 (13-39) U/L ALT 18 (7-52) U/L Alkaline Phosphatase 63 (34-104) U/L Troponin I < 0.03 (0-0.04) ng/ml Total Protein 6.5 (6.0-8.3) gm/dl Albumin 3.4 (3.4-5.0) gm/dl Globulin 3.1 (2.5-4.0) gm/dl Albumin/Globulin Ratio 1.1 (0.9-2) Procalcitonin (0-0.5) ng/ml TSH (0.300-4.500) uIu/ml Urine Color Urine Appearance (Clear) Urine pH (4.5-7.5) Ur Specific [place] (1.000-1.030) Urine Protein (Negative) Urine Glucose (UA) (Negative) Urine Ketones (Negative) Urine Blood (Negative) Urine Nitrite (Negative) Urine Bilirubin (Negative) Urine Urobilinogen (Negative) Ur Leukocyte Esterase (Negative) Urine WBC (Auto) (0-5) /hpf Urine RBC (Auto) (0-4) /hpf U Hyaline Cast (Auto) (0-5) /lpf U Epithel Cells (Auto) (0-5) /lpf Urine Bacteria (Auto) (Negative) Urine Yeast (None Prsent) Nasal Screen MRSA (PCR) (Negative) SARS-CoV-2, RNA, NAAT (NEGATIVE) 06/29/21 06/29/21 06/29/21 Range/Units 16:16 16:16 16:16 WBC (4.8-10.8) K/uL RBC (4.2-5.4) M/uL Hgb (12.0-16.0) g/dL Hct (37-47) % MCV (80-100) fL MCH (25-34) pg MCHC (32-36) g/dL RDW Std Deviation (36.4-46.3) fL RDW Coeff of [place] (11.5-14.5) % Plt Count (130-400) K/uL MPV (7.4-10.4) fL Immature Gran % (Auto) % Neut % (Auto) % Lymph % (Auto) % [place] % (Auto) % Eos % (Auto) % Baso % (Auto) % Neut # (Auto) (1.4-6.5) K/uL Lymph # (Auto) (1.2-3.4) K/uL [place] # (Auto) (0.11-0.59) K/uL Eos # (Auto) (0-0.5) K/uL Baso # (Auto) (0-0.2) K/uL Immature Gran # (Auto) (0.00-0.02) K/uL PT (9.0-12.0) Seconds INR (0.9-1.1) VBG pH (7.36-7.41) VBG pCO2 (38-50) mmHg VBG pO2 mmHg VBG HCO3 mmol/L VBG O2 Saturation % VBG Base Excess mEq/L Barometric Pressure mm/Hg Sodium (136-145) mmol/L Potassium (3.5-5.1) mmol/L Chloride (98-107) mmol/L Carbon Dioxide (21-32) mmol/L Anion Gap (3-11) BUN (6-23) mg/dl Creatinine (0.6-1.2) mg/dl Est Cr Clr Drug Dosing ml/min Est GFR ( Amer) ml/min Est GFR (Non-Af Amer) ml/min BUN/Creatinine Ratio (10-20) Glucose (70-99(Fasting)) mg/dl Lactate 1.6 (0.4-2.0) mmol/L Calcium (8.5-10.1) mg/dl Magnesium (1.7-2.4) mg/dl Total Bilirubin (0.2-1.0) mg/dl AST (13-39) U/L ALT (7-52) U/L Alkaline Phosphatase (34-104) U/L Troponin I (0-0.04) ng/ml Total Protein (6.0-8.3) gm/dl Albumin (3.4-5.0) gm/dl Globulin (2.5-4.0) gm/dl Albumin/Globulin Ratio (0.9-2) Procalcitonin 0.32 (0-0.5) ng/ml TSH 0.743 (0.300-4.500) uIu/ml Urine Color Urine Appearance (Clear) Urine pH (4.5-7.5) Ur Specific [place] (1.000-1.030) Urine Protein (Negative) Urine Glucose (UA) (Negative) Urine Ketones (Negative) Urine Blood (Negative) Urine Nitrite (Negative) Urine Bilirubin (Negative) Urine Urobilinogen (Negative) Ur Leukocyte Esterase (Negative) Urine WBC (Auto) (0-5) /hpf Urine RBC (Auto) (0-4) /hpf U Hyaline Cast (Auto) (0-5) /lpf U Epithel Cells (Auto) (0-5) /lpf Urine Bacteria (Auto) (Negative) Urine Yeast (None Prsent) Nasal Screen MRSA (PCR) (Negative) SARS-CoV-2, RNA, NAAT (NEGATIVE) 06/29/21 06/29/21 06/29/21 Range/Units 16:19 16:20 17:17 WBC (4.8-10.8) K/uL RBC (4.2-5.4) M/uL Hgb (12.0-16.0) g/dL Hct (37-47) % MCV (80-100) fL MCH (25-34) pg MCHC (32-36) g/dL RDW Std Deviation (36.4-46.3) fL RDW Coeff of [place] (11.5-14.5) % Plt Count (130-400) K/uL MPV (7.4-10.4) fL Immature Gran % (Auto) % Neut % (Auto) % Lymph % (Auto) % [place] % (Auto) % Eos % (Auto) % Baso % (Auto) % Neut # (Auto) (1.4-6.5) K/uL Lymph # (Auto) (1.2-3.4) K/uL [place] # (Auto) (0.11-0.59) K/uL Eos # (Auto) (0-0.5) K/uL Baso # (Auto) (0-0.2) K/uL Immature Gran # (Auto) (0.00-0.02) K/uL PT (9.0-12.0) Seconds INR (0.9-1.1) VBG pH 7.38 (7.36-7.41) VBG pCO2 51 H (38-50) mmHg VBG pO2 33 mmHg VBG HCO3 29 mmol/L VBG O2 Saturation < 60.0 % VBG Base Excess 3.4 mEq/L Barometric Pressure 738.5 mm/Hg Sodium (136-145) mmol/L Potassium (3.5-5.1) mmol/L Chloride (98-107) mmol/L Carbon Dioxide (21-32) mmol/L Anion Gap (3-11) BUN (6-23) mg/dl Creatinine (0.6-1.2) mg/dl Est Cr Clr Drug Dosing ml/min Est GFR ( Amer) ml/min Est GFR (Non-Af Amer) ml/min BUN/Creatinine Ratio (10-20) Glucose (70-99(Fasting)) mg/dl Lactate (0.4-2.0) mmol/L Calcium (8.5-10.1) mg/dl Magnesium (1.7-2.4) mg/dl Total Bilirubin (0.2-1.0) mg/dl AST (13-39) U/L ALT (7-52) U/L Alkaline Phosphatase (34-104) U/L Troponin I (0-0.04) ng/ml Total Protein (6.0-8.3) gm/dl Albumin (3.4-5.0) gm/dl Globulin (2.5-4.0) gm/dl Albumin/Globulin Ratio (0.9-2) Procalcitonin (0-0.5) ng/ml TSH (0.300-4.500) uIu/ml Urine Color Yellow Urine Appearance Cloudy A (Clear) Urine pH 5.0 (4.5-7.5) Ur Specific [place] 1.014 (1.000-1.030) Urine Protein Trace H (Negative) Urine Glucose (UA) 1+ H (Negative) Urine Ketones Negative (Negative) Urine Blood Negative (Negative) Urine Nitrite Negative (Negative) Urine Bilirubin Negative (Negative) Urine Urobilinogen Negative (Negative) Ur Leukocyte Esterase Negative (Negative) Urine WBC (Auto) 5-10 H (0-5) /hpf Urine RBC (Auto) 0-4 (0-4) /hpf U Hyaline Cast (Auto) 1-5 (0-5) /lpf U Epithel Cells (Auto) >30 H (0-5) /lpf Urine Bacteria (Auto) 1+ H (Negative) Urine Yeast Budding A (None Prsent) Nasal Screen MRSA (PCR) (Negative) SARS-CoV-2, RNA, NAAT NEGATIVE (NEGATIVE) 06/29/21 Range/Units 18:26 WBC (4.8-10.8) K/uL RBC (4.2-5.4) M/uL Hgb (12.0-16.0) g/dL Hct (37-47) % MCV (80-100) fL MCH (25-34) pg MCHC (32-36) g/dL RDW Std Deviation (36.4-46.3) fL RDW Coeff of [place] (11.5-14.5) % Plt Count (130-400) K/uL MPV (7.4-10.4) fL Immature Gran % (Auto) % Neut % (Auto) % Lymph % (Auto) % [place] % (Auto) % Eos % (Auto) % Baso % (Auto) % Neut # (Auto) (1.4-6.5) K/uL Lymph # (Auto) (1.2-3.4) K/uL [place] # (Auto) (0.11-0.59) K/uL Eos # (Auto) (0-0.5) K/uL Baso # (Auto) (0-0.2) K/uL Immature Gran # (Auto) (0.00-0.02) K/uL PT (9.0-12.0) Seconds INR (0.9-1.1) VBG pH (7.36-7.41) VBG pCO2 (38-50) mmHg VBG pO2 mmHg VBG HCO3 mmol/L VBG O2 Saturation % VBG Base Excess mEq/L Barometric Pressure mm/Hg Sodium (136-145) mmol/L Potassium (3.5-5.1) mmol/L Chloride (98-107) mmol/L Carbon Dioxide (21-32) mmol/L Anion Gap (3-11) BUN (6-23) mg/dl Creatinine (0.6-1.2) mg/dl Est Cr Clr Drug Dosing ml/min Est GFR ( Amer) ml/min Est GFR (Non-Af Amer) ml/min BUN/Creatinine Ratio (10-20) Glucose (70-99(Fasting)) mg/dl Lactate (0.4-2.0) mmol/L Calcium (8.5-10.1) mg/dl Magnesium (1.7-2.4) mg/dl Total Bilirubin (0.2-1.0) mg/dl AST (13-39) U/L ALT (7-52) U/L Alkaline Phosphatase (34-104) U/L Troponin I (0-0.04) ng/ml Total Protein (6.0-8.3) gm/dl Albumin (3.4-5.0) gm/dl Globulin (2.5-4.0) gm/dl Albumin/Globulin Ratio (0.9-2) Procalcitonin (0-0.5) ng/ml TSH (0.300-4.500) uIu/ml Urine Color Urine Appearance (Clear) Urine pH (4.5-7.5) Ur Specific [place] (1.000-1.030) Urine Protein (Negative) Urine Glucose (UA) (Negative) Urine Ketones (Negative) Urine Blood (Negative) Urine Nitrite (Negative) Urine Bilirubin (Negative) Urine Urobilinogen (Negative) Ur Leukocyte Esterase (Negative) Urine WBC (Auto) (0-5) /hpf Urine RBC (Auto) (0-4) /hpf U Hyaline Cast (Auto) (0-5) /lpf U Epithel Cells (Auto) (0-5) /lpf Urine Bacteria (Auto) (Negative) Urine Yeast (None Prsent) Nasal Screen MRSA (PCR) Negative (Negative) SARS-CoV-2, RNA, NAAT (NEGATIVE) Administered Medications Discontinued Medications Albuterol (Albut/Ipratrop 3mg/0.5mg Neb 3 Ml Vial) 3 ml NEB NOW STA; Protocol Stop: 06/29/21 16:10 Last Admin: 06/29/21 16:31 Dose: 3 ml Documented by: [id number] Piperacillin Sod/Tazobactam Sod (Zosyn) 4.5 gm in 120 mls @ 240 mls/hr IV NOW ONE Stop: 06/29/21 17:33 Last Admin: 06/29/21 17:35 Dose: 240 mls/hr Documented by: [id number] Vancomycin HCl 1,500 mg/ (Sodium Chloride) 530 mls @ 200 mls/hr IV NOW ONE Stop: 06/29/21 19:56 Last Admin: 06/29/21 18:58 Dose: 200 mls/hr Documented by: [id number] Methylprednisolone 60 mg/ (Syringe) 0.96 mls @ 1.5 mls/min IV ONE ONE Stop: 06/29/21 17:31 Last Admin: 06/29/21 18:57 Dose: 1.5 mls/min Documented by: [id number] Ioversol (Optiray 320 125ml) 117 ml IV ONCE ONE Stop: 06/29/21 18:16 Last Admin: 06/29/21 18:16 Dose: 117 ml Documented by: [id number] Imaging Data Radiologist's Impression: Chest X-Ray 06/29/21 16:09 XR chest 1V portable HISTORY: 76 years-old Female sob, hypoxia acute shortness of breath with hypoxia COMPARISON: Chest radiograph 11/22/2021, chest CT 06/23/2021 TECHNIQUE: Portable AP view of the chest FINDINGS: Cardiac silhouette is enlarged. Atherosclerosis of the thoracic aorta. No pneumothorax. Suggested small pleural effusions. Bibasilar and left upper lung predominant airspace opacities redemonstrated with progressive consolidation within the right lung base. Bones appear grossly intact. IMPRESSION: 1. Bibasilar and left upper lung predominant airspace opacities are suggestive of multifocal pneumonia, progressed within the right lung base. 2. Cardiomegaly with small pleural effusions. ACT 112: Negative or not required by law. The above report was generated using voice recognition software. It may contain grammatical, syntax or spelling errors. Electronically signed by: Stef Pineda M.D. 06/29/2021 4:[address] 06/29/21 16:23 CT SCAN OF THE BRAIN WITHOUT IV CONTRAST CLINICAL HISTORY: Change in mental status. Hallucinations. COMPARISON STUDY: CT of the brain dated 11/16/2020. TECHNIQUE: Unenhanced axial CT scan of the brain is performed from the vertex to the skull base. A dose lowering technique was utilized adhering to the principles of ALARA. FINDINGS: Brain parenchyma: There are age-related involutional changes noting moderate subcortical and periventricular microangiopathic change. There is no hemorrhage, mass effect, or evidence of acute territorial ischemia by CT criteria. Espinoza- white matter differentiation is preserved. No extra-axial fluid collection is seen. Ventricles, sulci, cisterns: Prominent secondary to involutional change. Intracranial vasculature: There is atherosclerotic calcification of the cavernous carotid arteries. Calvarium: Unremarkable. Sinuses and mastoids: The visualized paranasal sinuses are clear. The mastoid air cells are well pneumatized. Orbits: The bony orbits are grossly intact. There are bilateral ocular lens implants. IMPRESSION: There is no hemorrhage, mass effect, or evidence of acute territorial ischemia by CT criteria. ACT 112: Negative or not required by law. Electronically signed by: Sridhar Ramos M.D. 06/29/2021 6:26 PM Chest CTA 06/29/21 16:24 CT ANGIOGRAM OF THE CHEST CLINICAL HISTORY: Hypoxia. COMPARISON STUDY: Chest x-ray dated 06/29/2021. Chest CT dated 06/23/2021. TECHNIQUE: Following the IV administration of 117 cc of Optiray 320, CT angiogram of the chest was performed from the upper abdomen to the thoracic inlet utilizing the pulmonary embolus protocol. Images are reviewed in the axial, sagittal, and coronal planes. 3-D MIPS images are created and assessed. IV contrast was administered without complication. A dose lowering technique was utilized adhering to the principles of ALARA. The examination is significantly compromised by motion artifact, streak artifact from metallic spinal hardware, and streak artifact from the arms which could not be elevated above the chest. CT DOSE: 1198.73 mGy.cm FINDINGS: Thyroid: Imaged portions of the thyroid gland are normal in size and attenuati on. Thoracic aorta: There is atherosclerotic calcification of the thoracic aorta, which is normal in caliber and demonstrates standard 3-vessel arch anatomy. No dissection is seen. Pulmonary vasculature: The pulmonary trunk is normal in caliber. There are no filling defects identified in main, lobar, or segmental pulmonary branches to suggest pulmonary embolus. Heart: The heart is enlarged and without pericardial effusion. Lungs and pleural spaces: And edematous change is noted. There is multifocal patchy airspace consolidation throughout the left lung, greatest in the left apex and at the left lung base. Multifocal airspace consolidation is also seen at the right lung base, with minimal patchy airspace opacities in the right upper lobe. No pleural effusion or pneumothorax is identified. There are numerous calcified granulomas. Esophagus: Esophagus is distended and filled with debris to the level of the thoracic inlet. Mediastinum: Subcentimeter mediastinal lymph nodes are not pathologically enlarged by size criteria. Kassy: There are calcified right hilar lymph nodes. No hilar adenopathy is seen. Axillae: There is no axillary lymphadenopathy. Upper abdomen: Partially visualized upper abdominal viscera is within normal limits. Skeletal structures: The skeletal structures are osteopenic. Fusion hardware is noted at the thoracolumbar junction. Spondylotic change is noted throughout the thoracic spine. Advanced arthritic change is seen in the shoulders. No lytic or blastic bony lesions are seen. IMPRESSION: 1. Streak and motion compromised examination. 2. There is no evidence of pulmonary embolus in the main, lobar, or segmental pulmonary arteries. 3. Cardiomegaly and emphysema. 4. Multifocal airspace consolidation is seen throughout both lungs as detailed above. This has progressed from 06/23/2021 and is consistent with multifocal pneumonia/aspiration pneumonitis. Radiographic follow-up to resolution is recommended. 5. The esophagus is distended and filled with fluid/debris to the level of the thoracic inlet. Note this places the patient at risk for aspiration. 6. Additional findings as above. ACT 112: Negative or not required by law. Electronically signed by: Sridhar Ramos M.D. 06/29/2021 6:34 PM Discharge Plan Visit Data Chief Complaint: Altered Mental Status Stated Complaint: HALLUCINATIONS ED Provider: Sandrine,Lew T Discharge Problem: Respiratory failure, Multifocal pneumonia, Hallucination Patient Disposition: Admitted As Inpatient Discharge Instructions Interventions: ED Discharge Assessment Last Done: 06/29/21 21:14 Discharge Problem: Respiratory failure Qualifiers: Chronicity: acute Respiratory failure complication: hypoxia Qualified Code(s): J96.01 - Acute respiratory failure with hypoxia
--- NOTE | 2021-06-29 16:23 | XRay Report ---
XR chest 1V portable HISTORY: 76 years-old Female sob, hypoxia acute shortness of breath with hypoxia COMPARISON: Chest radiograph 11/22/2021, chest CT 06/23/2021 TECHNIQUE: Portable AP view of the chest FINDINGS: Cardiac silhouette is enlarged. Atherosclerosis of the thoracic aorta. No pneumothorax. Suggested sma ll pleural effusions. Bibasilar and left upper lung predominant airspace opacities redemonstrated wit h progressive consolidation within the right lung base. Bones appear grossly intact. IMPRESSION: 1. Bibasilar and left upper lung predominant airspace opacities are suggestive of multifocal pneumoni a, progressed within the right lung base. 2. Cardiomegaly with small pleural effusions. ACT 112: Negative or not required by law. The above report was generated using voice recognition software. It may contain grammatical, syntax o r spelling errors. Electronically signed by: Stef Pineda M.D. 06/29/2021 4:22 PM
[2021-06-29 16:31] LABS: Basophils # (auto) 0.01 K/uL (0-0.2); Basophils % (auto) 0.1 %; Eosinophils # (auto) 0.14 K/uL (0-0.5); Eosinophils % (auto) 0.8 %; Hematocrit (blood only) 32.5 % (37-47); Hemoglobin 10.8 g/dL (12.0-16.0); Immature Granulocytes # (auto) 0.08 K/uL (0.00-0.02); Immature Granulocytes % (auto) 0.5 %; Lymphocytes # (auto) 1.04 K/uL (1.2-3.4); Lymphocytes % (auto) 6.3 %; Mean Corpuscular Hemoglobin 30.1 pg (25-34); Mean Corpuscular Hgb Conc 33.2 g/dL (32-36); Mean Corpuscular Volume 90.5 fL (80-100); Mean Platelet Volume 9.4 fL (7.4-10.4); Monocytes # (auto) 0.65 K/uL (0.11-0.59); Monocytes % (auto) 3.9 %; Neutrophils # (auto) 14.58 K/uL (1.4-6.5); Neutrophils % (auto) 88.4 %; Platelet Count 440 K/uL (130-400); RDW Coefficient of Variation 14.4 % (11.5-14.5); RDW Standard Deviation 47.5 fL (36.4-46.3); Red Blood Count 3.59 M/uL (4.2-5.4)
[2021-06-29 16:33] LABS: Base Excess VBG 3.4 mEq/L; HCO3 VBG 29 mmol/L; PCO2 VBG 51 mmHg (38-50); PO2 VBG 33 mmHg; pH VBG 7.38 (7.36-7.41)
[2021-06-29 16:34] LABS: Oxygen Saturation VBG < 60.0 %
[2021-06-29 16:39] LABS: Prothrombin Time 10.4 Seconds (9.0-12.0)
[2021-06-29 16:54] LABS: Troponin I < 0.03 ng/ml (0-0.04)
[2021-06-29 16:56] LABS: Alanine Aminotransferase 18 U/L (7-52); Albumin Globulin Ratio 1.1 (0.9-2); Albumin Level 3.4 gm/dl (3.4-5.0); Alkaline Phosphatase 63 U/L (34-104); Anion Gap 7 (3-11); Aspartate Aminotransferase 14 U/L (13-39); BUN Creatinine Ratio 18.4 (10-20); Bilirubin,Total 0.6 mg/dl (0.2-1.0); Blood Urea Nitrogen 25 mg/dl (6-23); Calcium 9.5 mg/dl (8.5-10.1); Carbon Dioxide 29 mmol/L (21-32); Chloride 100 mmol/L (98-107); Creatinine Clr Calc Pharmacy 35.6 ml/min; Est GFR (African American) 43.4 ml/min; Est GFR (Non-African American) 37.4 ml/min; Globulin 3.1 gm/dl (2.5-4.0); Glucose 184 mg/dl (70-99(Fasting)); Magnesium 1.6 mg/dl (1.7-2.4); Potassium 4.8 mmol/L (3.5-5.1); Sodium 136 mmol/L (136-145); Total Protein 6.5 gm/dl (6.0-8.3)
[2021-06-29] MEDS ORDERED: methylPREDNISolone 60 MG in SYRINGE 1 ML IV STA (17:04)
[2021-06-29] MEDS ORDERED: PIPERACILLIN/TAZOBACTAM 4.5 GM/120 ML BAG IV ONE (17:04)
[2021-06-29] MEDS ORDERED: PIPERACILL/TAZOBAC CONSULT ACTIVE PRN (17:04)
[2021-06-29] MEDS ORDERED: VANCOMYCIN CONSULT ACTIVE PRN (17:18)
[2021-06-29] MEDS ORDERED: VANCOMYCIN HCL 1,500 MG in SODIUM CHLORIDE 0.9% 500 ML IV ONE (17:18)
[2021-06-29 17:29] LABS: Appearance Urine Cloudy (Clear); Bilirubin Urine Negative (Negative); Blood Urine Negative (Negative); Color Urine Yellow; Epithelial Cell Urine Auto >30 /lpf (0-5); Glucose Urine UA 1+ (Negative); Ketones Urine Negative (Negative); Leukocyte Esterase Urine Negative (Negative); Nitrite Urine Negative (Negative); Protein Urine Trace (Negative); Specific Gravity Urine 1.014 (1.000-1.030); Urobilinogen Urine Negative (Negative)
[2021-06-29] MEDS ORDERED: methylPREDNISolone 60 MG in SYRINGE 0 ML IV ONE (17:30)
[2021-06-29 17:57] LABS: Bacteria Urine Automated 1+ (Negative); RBC Urine Automated 0-4 /hpf (0-4)
[2021-06-29] MEDS ORDERED: OPTIRAY 320 125ml IV ONE (18:15)
--- NOTE | 2021-06-29 18:28 | CT Scan Report ---
CT SCAN OF THE BRAIN WITHOUT IV CONTRAST CLINICAL HISTORY: Change in mental status. Hallucinations. COMPARISON STUDY: CT of the brain dated 11/16/2020. TECHNIQUE: Unenhanced axial CT scan of the brain is performed from the vertex to the skull base. A do se lowering technique was utilized adhering to the principles of ALARA. FINDINGS: Brain parenchyma: There are age-related involutional changes noting moderate subcortical and periven tricular microangiopathic change. There is no hemorrhage, mass effect, or evidence of acute territori al ischemia by CT criteria. Espinoza-white matter differentiation is preserved. No extra-axial fluid janett ection is seen. Ventricles, sulci, cisterns: Prominent secondary to involutional change. Intracranial vasculature: There is atherosclerotic calcification of the cavernous carotid arteries. Calvarium: Unremarkable. Sinuses and mastoids: The visualized paranasal sinuses are clear. The mastoid air cells are well pneu matized. Orbits: The bony orbits are grossly intact. There are bilateral ocular lens implants. IMPRESSION: There is no hemorrhage, mass effect, or evidence of acute territorial ischemia by CT herve johnson. ACT 112: Negative or not required by law. Electronically signed by: Sridhar Ramos M.D. 06/29/2021 6:26 PM
--- NOTE | 2021-06-29 18:37 | CT Scan Report ---
CT ANGIOGRAM OF THE CHEST CLINICAL HISTORY: Hypoxia. COMPARISON STUDY: Chest x-ray dated 06/29/2021. Chest CT dated 06/23/2021. TECHNIQUE: Following the IV administration of 117 cc of Optiray 320, CT angiogram of the chest was pe rformed from the upper abdomen to the thoracic inlet utilizing the pulmonary embolus protocol. Images are reviewed in the axial, sagittal, and coronal planes. 3-D MIPS images are created and assessed. I V contrast was administered without complication. A dose lowering technique was utilized adhering to the principles of ALARA. The examination is significantly compromised by motion artifact, streak art ifact from metallic spinal hardware, and streak artifact from the arms which could not be elevated ab ove the chest. CT DOSE: 1198.73 mGy.cm FINDINGS: Thyroid: Imaged portions of the thyroid gland are normal in size and attenuation. Thoracic aorta: There is atherosclerotic calcification of the thoracic aorta, which is normal in christine breana and demonstrates standard 3-vessel arch anatomy. No dissection is seen. Pulmonary vasculature: The pulmonary trunk is normal in caliber. There are no filling defects identif ied in main, lobar, or segmental pulmonary branches to suggest pulmonary embolus. Heart: The heart is enlarged and without pericardial effusion. Lungs and pleural spaces: And edematous change is noted. There is multifocal patchy airspace consolid ation throughout the left lung, greatest in the left apex and at the left lung base. Multifocal airsp vickie consolidation is also seen at the right lung base, with minimal patchy airspace opacities in the right upper lobe. No pleural effusion or pneumothorax is identified. There are numerous calcified gra nulomas. Esophagus: Esophagus is distended and filled with debris to the level of the thoracic inlet. Mediastinum: Subcentimeter mediastinal lymph nodes are not pathologically enlarged by size criteria. Kassy: There are calcified right hilar lymph nodes. No hilar adenopathy is seen. Axillae: There is no axillary lymphadenopathy. Upper abdomen: Partially visualized upper abdominal viscera is within normal limits. Skeletal structures: The skeletal structures are osteopenic. Fusion hardware is noted at the thoracol umbar junction. Spondylotic change is noted throughout the thoracic spine. Advanced arthritic change is seen in the shoulders. No lytic or blastic bony lesions are seen. IMPRESSION: 1. Streak and motion compromised examination. 2. There is no evidence of pulmonary embolus in the main, lobar, or segmental pulmonary arteries. 3. Cardiomegaly and emphysema. 4. Multifocal airspace consolidation is seen throughout both lungs as detailed above. This has progre ssed from 06/23/2021 and is consistent with multifocal pneumonia/aspiration pneumonitis. Radiographic f ollow-up to resolution is recommended. 5. The esophagus is distended and filled with fluid/debris to the level of the thoracic inlet. Note t his places the patient at risk for aspiration. 6. Additional findings as above. ACT 112: Negative or not required by law. Electronically signed by: Sridhar Ramos M.D. 06/29/2021 6:34 PM
--- NOTE | 2021-06-29 19:55 | History & Physical Report ---
Date of Service June 29, 2021 Assessment & Plan (1) Acute and chronic respiratory failure with hypoxia: Plan: - O2 75% in ED on RA with encephalopathy, placed on oxymask 8L with improved cognition and SpO2. VBG with pCO2 51. Also Albuterol and SoluMedrol 60 in ED. - CXR showed bibasilar and left upper lung predominant airspace opacities are suggestive of multifocal pneumonia, progressed since 06/23/21 within the right lung base. Cardiomegaly with small pleural effusions also noted. CTA showed that the esophagus is distended and filled with fluid/debris to the level of the thoracic inlet. - Patient was started on vancomycin and Zosyn in ED, will switch to Unasyn for aspiration pneumonia coverage. Will d/c vancomycin pending MRSA swab if negative. - Continue home inhalers. (2) MATT (acute kidney injury): Plan: - BUN 25, Cr 1.36 (baseline 0.8), both improving since previous admission. - Most likely secondary to hypovolemia, pt has frequent emesis with both food and liquids to do esophageal dysmotility. - Holding ACEi, HCTZ. - LRs @ 80cc/hr for 1 L - Renally dose all medications, hold nephrotoxic agents. (3) Hallucination: Plan: - Most likely in the setting of hypoxia due to aspiration pneumonia, has resolved with supplemental O2. CT head without acute findings. - Continue to monitor, consider further workup if present despite appropriate SaO2. (4) Esophageal dysmotility: Plan: - Follows with [facility] in [place]. Has missed several appts for evaluation and possible intervention due to frequent hospitalizations recently for aspiration pneumonia. - On a soft food diet at home. NPO for now, consider NG tube placement. - [facility] consulted for evaluation of multiple admissions for aspiration pneumonia, appreciate their recommendations. (5) Hypomagnesemia: Plan: - 1.6 in ED, repleted with 2 g. - Recheck with AM labs. (6) HTN (hypertension), benign: Plan: -Hold lisinopril and HCTZ in setting of MATT. Hold diltiazem for now while pt NPO. (7) Diabetes mellitus type 2 in obese: Plan: - BGM 184 in ED. On metformin at home, will hold this. - Will start on sliding scale insulin for now, can consider long acting insulin if sugars are consistently elevated. - Accucheks achs. -Hold gabapentin for now while NPO. (8) Vitamin B12 deficiency: Plan: - Hold B12 for now while NPO (9) GERD (gastroesophageal reflux disease): Plan: - Continue IV Pepcid, Protonix. (10) Hyperlipidemia: Plan: - Hold fenofibrate and pravastatin for now while NPO. (11) Depression: Plan: - Hold Cymbalta for now while NPO. (12) Restless leg syndrome: Plan: - Hold Mirapex for now while NPO. Plan: [facility] -SCDs with [place] Heparin BID. -Full Code. History of Present Illness Primary Care Provider: Manny Bland DO This patient is a 76-year-old female with PMH achalasia, COPD, HTN, and DM2 who presents today with shortness of breath. Patient was recently discharged 4 days ago on , 06/25, after being treated for sepsis secondary to aspiration pneumonia. She finished her outpatient abx several days ago, and had been feeling well up until yesterday when she had body aches, chills and suspected she may have a fever. This afternoon, patient's daughter reports she was complaining of difficulty breathing and later having vivid visual hallucinations, which typically happens when her O2 is low. She reports ongoing nausea and vomiting after meals which is typical for her, patient does have esophageal dysmotility issues that cause her to frequently regurgitate her food and has caused her to develop aspiration pneumonia in the past, most recently on 06/22 she was admitted for this. She does have an appt with [facility] in [place] for evaluation and possible procedure, however her recent [facility] pitalizations have been preventing her from making her appts. She is otherwise without complaints, denies chest pain, palpitations, cough, abdominal pain, diarrhea, constipation, unilateral edema, hemoptysis. Allergies Allergy/AdvReac Type Severity Reaction Status Date / Time atorvastatin [From Lipitor] Allergy Intermediate Skin Rash Verified 06/29/21 17:37 morphine AdvReac Intermediate Nausea Verified 06/29/21 17:37 Home Medications Medication Instructions Recorded Confirmed Type cholecalciferol (vitamin D3) 25 25 mcg PO QAM 05/03/20 06/29/21 History mcg (1,000 unit) tablet (Vitamin D3) cyanocobalamin (vitamin B-12) 1,000 mcg PO QAM 05/03/20 06/29/21 History 1,000 mcg tablet (Vitamin B-12) diltiazem HCl 180 mg 180 mg PO QAM 05/03/20 06/29/21 History capsule,extended release 24 hr duloxetine 30 mg capsule,delayed 30 mg PO QAM 05/03/20 06/29/21 History release (Cymbalta) duloxetine 60 mg capsule,delayed 60 mg PO QAM 05/03/20 06/29/21 History release fenofibrate micronized 134 mg 134 mg PO QPM 05/03/20 06/29/21 History capsule gabapentin 600 mg tablet 600 mg PO TID 05/03/20 06/29/21 History hydrochlorothiazide 25 mg tablet 25 mg PO QAM 05/03/20 06/29/21 History lisinopril 40 mg tablet 40 mg PO QAM 05/03/20 06/29/21 History metformin 500 mg tablet 1,000 mg PO BID 05/03/20 06/29/21 History pramipexole 1 mg tablet (Mirapex) 1 mg PO HS 05/03/20 06/29/21 History pravastatin 40 mg tablet 40 mg PO QAM 05/03/20 06/29/21 History sucralfate 1 gram tablet (Carafate) 1 g PO ACHS PRN 05/03/20 06/29/21 History famotidine 20 mg tablet 20 mg PO BID #14 tab 05/06/20 06/29/21 Rx albuterol sulfate 90 mcg/actuation 2 puff INHALATION Q3H PRN 11/08/20 06/29/21 History aerosol inhaler umeclidinium 62.5 mcg-vilanterol 62.5 inh INHALATION QAM 11/08/20 06/29/21 History 25 mcg/actuation powdr for inhalation (Anoro Ellipta) acetaminophen 325 mg tablet 650 mg PO Q4H PRN #30 tab 11/10/20 06/29/21 Rx diclofenac sodium 1 % topical gel 2 g TOPICAL QID PRN 11/16/20 06/29/21 History ondansetron HCl 4 mg tablet 4 mg PO Q6H #30 tab 03/02/21 06/29/21 Rx (Zofran) oxycodone-acetaminophen 5 mg-325 1 tab PO Q6H PRN 05/22/21 06/29/21 History mg tablet oxycodone 5 mg tablet 5 mg PO Q6H PRN #30 tab 06/15/21 06/29/21 Rx tramadol 50 mg tablet 50 mg PO Q6H PRN #30 tab 06/15/21 06/29/21 Rx pantoprazole 40 mg tablet,delayed 40 mg PO BID 06/22/21 06/29/21 History release fluticasone furoate 100 2 inh INHALATION DAILY 30 Days #30 06/25/21 06/29/21 Rx mcg/actuation blister powder for ea inhalation 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 Dysphagia Esophageal dysmotility GERD (gastroesophageal reflux disease) History of esophageal dilatation HTN (hypertension), benign Hyperlipidemia Nausea & vomiting anytime eats or drinks, per pt and granddaughter was thought to be d/t mucus from smoking as does not happen when not smoking during hospitalizations Obesity Peptic ulcer disease (~2017) bleeding ulcer Peripheral neuropathy Restless leg syndrome Schatzki's ring Sleep apnea unable to tolerate cpap Weight loss, unintentional Surgical History History of bilateral tubal ligation History of carpal tunnel release Left History of cataract surgery bilateral History of colonoscopy History of esophagogastroduodenoscopy (EGD) History of lumbar fusion History of repair of rotator cuff Right S/P epidural steroid injection Family History Father Heart disease Brother Kidney disease Mother Gastric cancer Family/Other Testicular cancer Other No family history of adverse response to anesthesia Social History Smoking Status: Current every day smoker Tobacco Type: Cigarettes Age Started Using Tobacco: 11; Years Smoked: 63; Cigarettes Per Day: 20; Second Hand Exposure: No; Do You Dip or Chew Tobacco: No; Hx Alcohol Use: No Hx Substance Use: No Preferred Language: Occitan Communication Ability: Effective Flight/Transport Nurse Required: No Beliefs That Will Affect Care: None marital status: / Current Living Situation: Family Current Living Situation Comment: home with son Other Information That Helps Us Care for You: No Feels Safe at Home: Yes Safety Concerns: Feels Safe At This Time Assistive Devices: Walker Review of Systems Review of Systems: Constitutional: reports chills, body aches for the past day Eyes: No diplopia, no worsening or blurred vision ENT: normal hearing, no trouble swallowing Respiratory: reports SOB over the past day Cardiovascular: No chest pain, tightness or palpitations Abdomen: No pain, nausea, vomiting, diarrhea or constipation Musculoskeletal: No joint pain, calf pain, swelling Neurologic: reports visual hallucinations today associated with low SpO2; No weakness, numbness/tingling, or balance problems Psychiatric: No anxiety or depression Skin: No rash or itch Physical Exam Physical Exam: General: awake, alert, no apparent distress Head: Normocephalic, atraumatic ENT: PERRL, EOMI, no pharyngeal exudate, mucous membranes moist Chest: diffuse wheezing throughout, patient on 5L oxymask Cardiac: tachycardic with regular rhythm, no murmur, no JVD, normal peripheral pulses, good capillary refill Abdominal: NABS x 4 quadrants, soft, nontender to palpation, no rebound, guarding or tenderness Extremities: Normal inspection, no peripheral edema or erythema, calfs nontender to palpation Psych: Normal mood and affect Neuro: AAO x 3, strength intact bilaterally and rated 5/5, no motor deficits, speech is clear, no peripheral sensory deficits Skin: no rash or erythema Results & Data Results & Data ([facility]) Vital Signs (Past 12 Hours) Vital Signs Temp Pulse Resp BP Pulse Ox 06/29/21 16:47 96 06/29/21 16:30 102 H 27 H 111/74 96 06/29/21 16:22 104 H 29 H 155/63 H 95 06/29/21 15:58 36.8 C 108 H 20 122/72 75 L Laboratory Results Abnormal lab results 06/29/21 06/29/21 06/29/21 Range/Units 16:16 16:16 16:19 WBC 16.50 H (4.8-10.8) K/uL RBC 3.59 L (4.2-5.4) M/uL Hgb 10.8 L (12.0-16.0) g/dL Hct 32.5 L (37-47) % RDW Std Deviation 47.5 H (36.4-46.3) fL Plt Count 440 H (130-400) K/uL Neut # (Auto) 14.58 H (1.4-6.5) K/uL Lymph # (Auto) 1.04 L (1.2-3.4) K/uL [place] # (Auto) 0.65 H (0.11-0.59) K/uL Immature Gran # (Auto) 0.08 H (0.00-0.02) K/uL VBG pCO2 51 H (38-50) mmHg BUN 25 H (6-23) mg/dl Creatinine 1.36 H (0.6-1.2) mg/dl Glucose 184 H (70-99(Fasting)) mg/dl Magnesium 1.6 L (1.7-2.4) mg/dl Urine Appearance (Clear) Urine Protein (Negative) Urine Glucose (UA) (Negative) Urine WBC (Auto) (0-5) /hpf U Epithel Cells (Auto) (0-5) /lpf Urine Bacteria (Auto) (Negative) Urine Yeast (None Prsent) 06/29/21 Range/Units 17:17 WBC (4.8-10.8) K/uL RBC (4.2-5.4) M/uL Hgb (12.0-16.0) g/dL Hct (37-47) % RDW Std Deviation (36.4-46.3) fL Plt Count (130-400) K/uL Neut # (Auto) (1.4-6.5) K/uL Lymph # (Auto) (1.2-3.4) K/uL [place] # (Auto) (0.11-0.59) K/uL Immature Gran # (Auto) (0.00-0.02) K/uL VBG pCO2 (38-50) mmHg BUN (6-23) mg/dl Creatinine (0.6-1.2) mg/dl Glucose (70-99(Fasting)) mg/dl Magnesium (1.7-2.4) mg/dl Urine Appearance Cloudy A (Clear) Urine Protein Trace H (Negative) Urine Glucose (UA) 1+ H (Negative) Urine WBC (Auto) 5-10 H (0-5) /hpf U Epithel Cells (Auto) >30 H (0-5) /lpf Urine Bacteria (Auto) 1+ H (Negative) Urine Yeast Budding A (None Prsent) Diagnostic Findings Chest X-Ray 06/29/21 16:09 XR chest 1V portable HISTORY: 76 years-old Female sob, hypoxia acute shortness of breath with hypoxia COMPARISON: Chest radiograph 11/22/2021, chest CT 06/23/2021 TECHNIQUE: Portable AP view of the chest FINDINGS: Cardiac silhouette is enlarged. Atherosclerosis of the thoracic aorta. No pneumothorax. Suggested small pleural effusions. Bibasilar and left upper lung predominant airspace opacities redemonstrated with progressive consolidation within the right lung base. Bones appear grossly intact. IMPRESSION: 1. Bibasilar and left upper lung predominant airspace opacities are suggestive of multifocal pneumonia, progressed within the right lung base. 2. Cardiomegaly with small pleural effusions. Head CT 06/29/21 16:23 CT SCAN OF THE BRAIN WITHOUT IV CONTRAST CLINICAL HISTORY: Change in mental status. Hallucinations. COMPARISON STUDY: CT of the brain dated 11/16/2020. TECHNIQUE: Unenhanced axial CT scan of the brain is performed from the vertex to the skull base. A dose lowering technique was utilized adhering to the principles of ALARA. FINDINGS: Brain parenchyma: There are age-related involutional changes noting moderate subcortical and periventricular microangiopathic change. There is no hemorrhage, mass effect, or evidence of acute territorial ischemia by CT criteria. Espinoza- white matter differentiation is preserved. No extra-axial fluid collection is seen. Ventricles, sulci, cisterns: Prominent secondary to involutional change. Intracranial vasculature: There is atherosclerotic calcification of the cavernous carotid arteries. Calvarium: Unremarkable. Sinuses and mastoids: The visualized paranasal sinuses are clear. The mastoid air cells are well pneumatized. Orbits: The bony orbits are grossly intact. There are bilateral ocular lens implants. IMPRESSION: There is no hemorrhage, mass effect, or evidence of acute territorial ischemia by CT criteria. Chest CTA 06/29/21 16:24 CT ANGIOGRAM OF THE CHEST CLINICAL HISTORY: Hypoxia. COMPARISON STUDY: Chest x-ray dated 06/29/2021. Chest CT dated 06/23/2021. TECHNIQUE: Following the IV administration of 117 cc of Optiray 320, CT angiogram of the chest was performed from the upper abdomen to the thoracic inlet utilizing the pulmonary embolus protocol. Images are reviewed in the axial, sagittal, and coronal planes. 3-D MIPS images are created and assessed. IV contrast was administered without complication. A dose lowering technique was utilized adhering to the principles of ALARA. The examination is signi ficantly compromised by motion artifact, streak artifact from metallic spinal hardware, and streak artifact from the arms which could not be elevated above the chest. CT DOSE: 1198.73 mGy.cm FINDINGS: Thyroid: Imaged portions of the thyroid gland are normal in size and attenuation. Thoracic aorta: There is atherosclerotic calcification of the thoracic aorta, which is normal in caliber and demonstrates standard 3-vessel arch anatomy. No dissection is seen. Pulmonary vasculature: The pulmonary trunk is normal in caliber. There are no filling defects identified in main, lobar, or segmental pulmonary branches to suggest pulmonary embolus. Heart: The heart is enlarged and without pericardial effusion. Lungs and pleural spaces: And edematous change is noted. There is multifocal pat humberto airspace consolidation throughout the left lung, greatest in the left apex and at the left lung base. Multifocal airspace consolidation is also seen at the right lung base, with minimal patchy airspace opacities in the right upper lobe. No pleural effusion or pneumothorax is identified. There are numerous calcified granulomas. Esophagus: Esophagus is distended and filled with debris to the level of the thoracic inlet. Mediastinum: Subcentimeter mediastinal lymph nodes are not pathologically enlarged by size criteria. [place]: There are calcified right hilar lymph nodes. No hilar adenopathy is seen. Axillae: There is no axillary lymphadenopathy. Upper abdomen: Partially visualized upper abdominal viscera is within normal limits. Skeletal structures: The skeletal structures are osteopenic. Fusion hardware is noted at the thoracolumbar junction. Spondylotic change is noted throughout the thoracic spine. Advanced arthritic change is seen in the shoulders. No lytic or blastic bony lesions are seen. IMPRESSION: 1. Streak and motion compromised examination. 2. There is no evidence of pulmonary embolus in the main, lobar, or segmental pulmonary arteries. 3. Cardiomegaly and emphysema. 4. Multifocal airspace consolidation is seen throughout both lungs as detailed above. This has progressed from 06/23/2021 and is consistent with multifocal pneumonia/aspiration pneumonitis. Radiographic follow-up to resolution is recommended. 5. The esophagus is distended and filled with fluid/debris to the level of the thoracic inlet. Note this places the patient at risk for aspiration. 6. Additional findings as above. ECG Additional Comments: Sinus tachycardia with occasional PVCs, without ST or T wave changes Supervising Physician Co-Signing Physician Notes Attending addendum: I have physically seen this patient, have supervised the BHAVANI's activities, and agree with the H&P unless as otherwise noted. Assessment and Plan: Acute on chronic respiratory failure with hypoxia/multifocal pneumonia- 75% on room air, improved to low to mid 90s on oxygen mask 8 L Received Vanco IV and Zosyn IV in ED Unasyn 3 g IV every 6 hours Duonebs every 4 hours while awake and every 2 hours when necessary. Acute kidney injury- Creatinine 1.36 with baseline 0.8 Hold hydrochlorothiazide and lisinopril LR at 80 mils per hour x1 L Recheck laboratories in a.m. Remaining orders and notations as noted PG Care Time/CCT Total # of Minutes Spent Total Time Spent with Patient: Total time spent is greater than 50% in coordination of care (as documented) at patient's floor/unit and/or counseling patient: Coding Level of Care Code 78293 Initial Inpt Care Lvl 3 Diagnoses Hallucination R44.3 Vitamin B12 deficiency E53.8 HTN (hypertension), benign I10 Diabetes mellitus type 2 in obese E11.69; E66.9 GERD (gastroesophageal reflux disease) K21.9 Depression F32.9 Acute and chronic respiratory failure with hypoxia J96.21 Esophageal dysmotility K22.4 Hyperlipidemia E78.5 Restless leg syndrome G25.81 MATT (acute kidney injury) N17.9 Hypomagnesemia E83.42
[2021-06-29] MEDS ORDERED: MAGNESIUM SULFATE / D5W 1 GM/100 ML BAG IV STA (21:28)
[2021-06-29] MEDS ORDERED: GLUCOSE 40% GEL 15 GM TUBE PO PRN (21:45)
[2021-06-29] MEDS ORDERED: CARBOHYDRATES FOR HYPOGLYCEMIA PO PRN (21:45)
[2021-06-29] MEDS ORDERED: ACETAMINOPHEN 325 MG TAB PO PRN ×2 (21:45)
[2021-06-29] MEDS ORDERED: FENOFIBRATE NANOCRYSTALLIZED 145 MG TABLET PO SCH (21:45)
[2021-06-29] MEDS ORDERED: SUCRALFATE 1 GM TAB PO PRN (21:45)
[2021-06-29] MEDS ORDERED: traMADol HCL 50 MG TABLET PO PRN (21:45)
[2021-06-29] MEDS ORDERED: PRAMIPEXOLE DIHYDROCHLO 0.5 MG TAB PO SCH (21:45)
[2021-06-29] MEDS ORDERED: GLUCAGON FOR INJ 1 MG VIAL SQ PRN (21:45)
[2021-06-29] MEDS ORDERED: FAMOTIDINE 20 MG TAB PO SCH (21:45)
[2021-06-29] MEDS ORDERED: DEXTROSE 50% 50 ML SYRINGE IV PRN (21:45)
[2021-06-29] MEDS ORDERED: POLYETHYLENE (MIRALAX) 17 GM PACK PO PRN (21:45)
[2021-06-29] MEDS ORDERED: LACTATED RINGER'S 1,000 ML IV ONE (21:45)
[2021-06-29] MEDS ORDERED: GLUCOSE 10 TABS/TUBE PO PRN (21:45)
[2021-06-29] MEDS ORDERED: ALBUTEROL HFA 8 GM INHALER INH PRN (21:45)
[2021-06-29] MEDS ORDERED: GABAPENTIN 600 MG TAB PO SCH (21:45)
[2021-06-29] MEDS ORDERED: PANTOprazole 40 MG TAB PO SCH (21:45)
--- NOTE | 2021-06-29 21:58 | Electrocardiogram Report ---
Test Reason : Blood Pressure : / mmHG Vent. Rate : 107 BPM Atrial Rate : 107 BPM P-R Int : 152 ms QRS Dur : 078 ms QT Int : 326 ms P-R-T Axes : -09 -28 029 degrees QTc Int : 435 ms Sinus tachycardia with occasional Premature ventricular complexes Possible Anterior infarct (cited on or before 23-JUN-2021) Abnormal ECG When compared with ECG of 23-JUN-2021 05:02, Premature ventricular complexes are now Present Vent. rate has increased BY 40 BPM Questionable change in initial forces of Septal leads Nonspecific T wave abnormality no longer evident in Lateral leads Confirmed by Jose A Camarena ([id number]) on 06/29/2021 9:58:05 PM Referred By: Confirmed By:Jose A Camarena
[2021-06-29] MEDS ORDERED: ACETAMINOPHEN 10MG/ML PEDIATRIC DOSING IV PRN (22:05)
[2021-06-29] MEDS: AMPICILLIN/SULBACTAM SOD 1,500 MG in 0.9 % SODIUM CHLORIDE 100 ML IV SCH (22:28)
[2021-06-29] MEDS: INSULIN ASPART PER UNIT SC SCH (22:52)
[2021-06-29] MEDS: ONDANSETRON 4 MG OD TAB PO SCH (22:54)
[2021-06-30] MEDS: AMPICILLIN/SULBACTAM SOD 1,500 MG in 0.9 % SODIUM CHLORIDE 100 ML IV SCH ×4 (04:07→20:58)
[2021-06-30] MEDS: ONDANSETRON 4 MG OD TAB PO SCH ×4 (04:53→22:35)
[2021-06-30] MEDS: INSULIN ASPART PER UNIT SC SCH ×4 (06:10→20:59)
[2021-06-30 07:22] LABS: Basophils # (auto) 0.02 K/uL (0-0.2); Basophils % (auto) 0.1 %; Hematocrit (blood only) 30.8 % (37-47); Immature Granulocytes # (auto) 0.11 K/uL (0.00-0.02); Immature Granulocytes % (auto) 0.6 %; Lymphocytes # (auto) 0.65 K/uL (1.2-3.4); Lymphocytes % (auto) 3.8 %; Mean Corpuscular Hemoglobin 29.5 pg (25-34); Mean Corpuscular Hgb Conc 32.5 g/dL (32-36); Mean Corpuscular Volume 90.9 fL (80-100); Mean Platelet Volume 9.6 fL (7.4-10.4); Monocytes # (auto) 0.41 K/uL (0.11-0.59); Monocytes % (auto) 2.4 %; Neutrophils # (auto) 15.75 K/uL (1.4-6.5); Neutrophils % (auto) 93.1 %; Platelet Count 430 K/uL (130-400); RDW Coefficient of Variation 14.6 % (11.5-14.5); RDW Standard Deviation 47.9 fL (36.4-46.3); Red Blood Count 3.39 M/uL (4.2-5.4); White Blood Count 16.94 K/uL (4.8-10.8)
[2021-06-30 07:49] LABS: BUN Creatinine Ratio 18.9 (10-20); Calcium 8.8 mg/dl (8.5-10.1); Creatinine Clr Calc Pharmacy 36.5 ml/min; Est GFR (Non-African American) 38.8 ml/min; Potassium 4.4 mmol/L (3.5-5.1)
--- NOTE | 2021-06-30 08:08 | Gastrointestinal Consultation ---
Date of Consultation June 30, 2021 Assessment & Plan (1) Aspiration pneumonia: Aspiration pneumonia: Hospitalist service managing. The patient has had 2 admissions for aspiration pneumonia and complications of over the last month. At this time would maintain n.p.o. in anticipation of transfer to [facility]. If transferred cannot be facilitated, would only advance diet to clear liquids plus Ensure. Could consider EGD if not able to transfer to clear any possible food bolus. Maintain aspiration precautions. Esophageal achalasia: The patient has had work-up as noted in HPI which ultimately has demonstrated type II achalasia with endoscopic myomotomy (POEM), pneumatic dilation, or surgical myotomy recommended. At this time would recommend patient transfer to [facility] for further care and treatment as she requires advanced procedures that cannot be performed at this facility. I have spoken to the patient's daughter, Silvia, who is agreeable to transfer. I spoken to Dr. Bassett with transfer recommendation. Case reviewed with Dr. Marie. Please refer to supervising physician addendum for further recommendations. I have spent 45 minutes of discrete time performing the activities of this visit which include but are not limited to review of the medical record, obtaining a history, physical exam, and entering information in the electronic record. (2) Achalasia, esophageal: see above Supervising Physician Co-Signing Physician Notes I have seen and examined the patient. I agree with note above by ANNABEL Hammonds except as noted below. HPI Pt vomited up noodles this afternoon. PE Abdomen pos bs, soft, no guarding nor rebound A/P Achalasia Dysphagia Treatment with POEM needs to be done at [facility]. Because she has recurrent aspiration events she needs to have this done expeditiously. I doubt she will do well trying to do this as an outpatient. Discussed with Dr Joseph about transfer to [place] so this can be the process can be expedited. As the supervising physician, I , Jose Marie MD have spent 34 minutes of discrete time performing the activities of this visit which include but not limited to review of the medical records, obtaining a history, physical exam and entering information in the electronic record. ANNABEL Hammonds has reported spending 45 minutes of discrete time with the activities of this visit. History of Present Illness Reason for Consultation: achalasis, aspiration pneumonia Attending Physician: Chris Joseph History of Present Illness The patient is a pleasant 76-year-old female with past medical history to include COPD, current smoker, depression, type 2 diabetes mellitus, dysphagia, esophageal dysmotility, GERD, hypertension, hyperlipidemia, obesity, peptic ulcer disease (2017) peripheral neuropathy, restless leg syndrome, sleep apnea (unable to tolerate CPAP) who presented to the emergency department due to shortness of breath and hallucinations. Patient has been struggling with chronic aspiration and was subsequently admitted for inpatient management of acute on chronic respiratory failure with hypoxia. The GI service was consulted due to esophageal dysmotility and multiple admissions for aspiration pneumonia. Prior records: 05/21/2021: High-resolution esophageal manometry was obtained at [facility] due to moderate to severe esophageal dysmotility with delayed passage of barium tablet and abnormal EGD. Abnormal manometric study consistent with type II achalasia. Recommend referral for endoscopic myotomy (POEM), pneumatic dilation, or surgical myotomy 12/02/2020: EGD performed due to dysphagia demonstrated tortuous esophagus with distal tapering noted at GE junction. Dilated to 51 Ma[place].. Gastritis which was biopsied. Normal duodenal bulb and second portion of the duodenum. It was recommended the patient have esophageal manometry. 11/18/2020: Barium swallowing study was obtained due to regurgitation which demonstrated 1. Moderate to severe esophageal dysmotility. 2. The barium pill became lodged in the distal esophagus. On exam/interview today, the patient denies any specific GI complaints. States she is hungry and wants something to drink. Currently NPO. Denies nausea, vomiting, abdominal pain. Nursing notes are reviewed. Patient vomited food contents on arrival to inpatient unit last night. Patient quit smoking 23 days ago. Long-time heavy smoker. Denies alcohol or drug use. Lives with her son and grandson. Requests that her daughter, Silvia, be contacted for HIPAA communication. Retired and worked with [employer]. Allergies Allergy/AdvReac Type Severity Reaction Status Date / Time atorvastatin [From Lipitor] Allergy Intermediate Skin Rash Verified 06/29/21 17:37 morphine AdvReac Intermediate Nausea Verified 06/29/21 17:37 Home Medications Medication Instructions Recorded Confirmed Type cholecalciferol (vitamin D3) 25 25 mcg PO QAM 05/03/20 06/29/21 History mcg (1,000 unit) tablet (Vitamin D3) cyanocobalamin (vitamin B-12) 1,000 mcg PO QAM 05/03/20 06/29/21 History 1,000 mcg tablet (Vitamin B-12) diltiazem HCl 180 mg 180 mg PO QAM 05/03/20 06/29/21 History capsule,extended release 24 hr duloxetine 30 mg capsule,delayed 30 mg PO QAM 05/03/20 06/29/21 History release (Cymbalta) duloxetine 60 mg capsule,delayed 60 mg PO QAM 05/03/20 06/29/21 History release fenofibrate micronized 134 mg 134 mg PO QPM 05/03/20 06/29/21 History capsule gabapentin 600 mg tablet 600 mg PO TID 05/03/20 06/29/21 History hydrochlorothiazide 25 mg tablet 25 mg PO QAM 05/03/20 06/29/21 History lisinopril 40 mg tablet 40 mg PO QAM 05/03/20 06/29/21 History metformin 500 mg tablet 1,000 mg PO BID 05/03/20 06/29/21 History pramipexole 1 mg tablet (Mirapex) 1 mg PO HS 05/03/20 06/29/21 History pravastatin 40 mg tablet 40 mg PO QAM 05/03/20 06/29/21 History sucralfate 1 gram tablet (Carafate) 1 g PO ACHS PRN 05/03/20 06/29/21 History famotidine 20 mg tablet 20 mg PO BID #14 tab 05/06/20 06/29/21 Rx albuterol sulfate 90 mcg/actuation 2 puff INHALATION Q3H PRN 11/08/20 06/29/21 History aerosol inhaler umeclidinium 62.5 mcg-vilanterol 62.5 inh INHALATION QAM 11/08/20 06/29/21 History 25 mcg/actuation powdr for inhalation (Anoro Ellipta) acetaminophen 325 mg tablet 650 mg PO Q4H PRN #30 tab 11/10/20 06/29/21 Rx diclofenac sodium 1 % topical gel 2 g TOPICAL QID PRN 11/16/20 06/29/21 History ondansetron HCl 4 mg tablet 4 mg PO Q6H #30 tab 03/02/21 06/29/21 Rx (Zofran) oxycodone-acetaminophen 5 mg-325 1 tab PO Q6H PRN 05/22/21 06/29/21 History mg tablet oxycodone 5 mg tablet 5 mg PO Q6H PRN #30 tab 06/15/21 06/29/21 Rx tramadol 50 mg tablet 50 mg PO Q6H PRN #30 tab 06/15/21 06/29/21 Rx pantoprazole 40 mg tablet,delayed 40 mg PO BID 06/22/21 06/29/21 History release fluticasone furoate 100 2 inh INHALATION DAILY 30 Days #30 06/25/21 06/29/21 Rx mcg/actuation blister powder for ea inhalation Patient History Medical History Chronic low back pain Chronic obstructive pulmonary disease inhaler prn; O2 sats 90-94% per pt and granddaughter, they report qualifying walking test however that follow-up test was then normal, patient is not currently on supplemental oxygen, they deny recent walking desat test Current smoker Quit smoking 06/13/21 Depression Diabetes mellitus type 2 in obese NIDDM Dysphagia Esophageal dysmotility GERD (gastroesophageal reflux disease) History of esophageal dilatation HTN (hypertension), benign Hyperlipidemia Nausea & vomiting anytime eats or drinks, per pt and granddaughter was thought to be d/t mucus from smoking as does not happen when not smoking during hospitalizations Obesity Peptic ulcer disease (~2017) bleeding ulcer Peripheral neuropathy Restless leg syndrome Schatzki's ring Sleep apnea unable to tolerate cpap Weight loss, unintentional Surgical History History of bilateral tubal ligation History of carpal tunnel release Left History of cataract surgery bilateral History of colonoscopy History of esophagogastroduodenoscopy (EGD) History of lumbar fusion History of repair of rotator cuff Right S/P epidural steroid injection Family History Father Heart disease Brother Kidney disease Mother Gastric cancer Family/Other Testicular cancer Other No family history of adverse response to anesthesia Social History Smoking Status: Current every day smoker Tobacco Type: Cigarettes Age Started Using Tobacco: 11; Years Smoked: 63; Cigarettes Per Day: 20; Second Hand Exposure: No; Do You Dip or Chew Tobacco: No; Hx Alcohol Use: No Hx Substance Use: No Preferred Language: Rwand[place] Communication Ability: Effective Product Strategy Director Required: No Beliefs That Will Affect Care: None marital status: / Current Living Situation: Family Current Living Situation Comment: home with son Other Information That Helps Us Care for You: No Feels Safe at Home: Yes Safety Concerns: Feels Safe At This Time Assistive Devices: Brace/Splint/Immobilizer and Walker Review of Systems Review of Systems: All systems reviewed & are unremarkable except as noted in Subjective Physical Exam Constitutional: WD/WN, vitals as above Respiratory: normal respiratory effort; no respiratory distress and no labored breathing Cardiovascular: Rate/Rhythm: regular rate and regular rhythm Gastrointestinal (Abdomen): normal bowel sounds, soft, nontender, no hepatosplenomegaly Psychiatric: Orientation: alert, oriented to person and oriented to place Results & Data ([facility]) Vital Signs (Past 12 Hours) Vital Signs Temp Pulse Pulse Pulse Resp BP BP 06/30/21 07:56 36.5 C 70 20 128/67 06/30/21 00:44 76 06/29/21 22:25 36.8 C 84 17 143/77 H 06/29/21 21:50 36.8 C 84 17 143/77 H 06/29/21 20:30 80 22 124/102 H 06/29/21 20:16 37.2 C 18 124/109 H Pulse Ox 06/30/21 07:56 96 06/30/21 00:44 06/29/21 22:25 93 06/29/21 21:50 93 06/29/21 20:30 95 06/29/21 20:16 96 Laboratory Results Laboratory Results - last 24 hr 06/29/21 06/29/21 06/29/21 16:16 16:16 16:16 WBC 16.50 H RBC 3.59 L Hgb 10.8 L Hct 32.5 L MCV 90.5 MCH 30.1 MCHC 33.2 RDW Std Deviation 47.5 H RDW Coeff of [place] 14.4 Plt Count 440 H MPV 9.4 Immature Gran % (Auto) 0.5 Neut % (Auto) 88.4 Lymph % (Auto) 6.3 [place] % (Auto) 3.9 Eos % (Auto) 0.8 Baso % (Auto) 0.1 Neut # (Auto) 14.58 H Lymph # (Auto) 1.04 L [place] # (Auto) 0.65 H Eos # (Auto) 0.14 Baso # (Auto) 0.01 Immature Gran # (Auto) 0.08 H PT 10.4 INR 1.0 VBG pH VBG pCO2 VBG pO2 VBG HCO3 VBG O2 Saturation VBG Base Excess Barometric Pressure Sodium 136 Potassium 4.8 Chloride 100 Carbon Dioxide 29 Anion Gap 7 BUN 25 H Creatinine 1.36 H Est Cr Clr Drug Dosing 35.6 Est GFR ( Amer) 43.4 Est GFR (Non-Af Amer) 37.4 BUN/Creatinine Ratio 18.4 Glucose 184 H POC Glucose Lactate Calcium 9.5 Magnesium 1.6 L Total Bilirubin 0.6 AST 14 ALT 18 Alkaline Phosphatase 63 Troponin I < 0.03 Total Protein 6.5 Albumin 3.4 Globulin 3.1 Albumin/Globulin Ratio 1.1 Procalcitonin TSH Urine Color Urine Appearance Urine pH Ur Specific Half Way Urine Protein Urine Glucose (UA) Urine Ketones Urine Blood Urine Nitrite Urine Bilirubin Urine Urobilinogen Ur Leukocyte Esterase Urine WBC (Auto) Urine RBC (Auto) U Hyaline Cast (Auto) U Epithel Cells (Auto) Urine Bacteria (Auto) Urine Yeast Nasal Screen MRSA (PCR) SARS-CoV-2, RNA, NAAT 06/29/21 06/29/21 06/29/21 16:16 16:16 16:16 WBC RBC Hgb Hct MCV MCH MCHC RDW Std Deviation RDW Coeff of [place] Plt Count MPV Immature Gran % (Auto) Neut % (Auto) Lymph % (Auto) [place] % (Auto) Eos % (Auto) Baso % (Auto) Neut # (Auto) Lymph # (Auto) [place] # (Auto) Eos # (Auto) Baso # (Auto) Immature Gran # (Auto) PT INR VBG pH VBG pCO2 VBG pO2 VBG HCO3 VBG O2 Saturation VBG Base Excess Barometric Pressure Sodium Potassium Chloride Carbon Dioxide Anion Gap BUN Creatinine Est Cr Clr Drug Dosing Est GFR ( Amer) Est GFR (Non-Af Amer) BUN/Creatinine Ratio Glucose POC Glucose Lactate 1.6 Calcium Magnesium Total Bilirubin AST ALT Alkaline Phosphatase Troponin I Total Protein Albumin Globulin Albumin/Globulin Ratio Procalcitonin 0.32 TSH 0.743 Urine Color Urine Appearance Urine pH Ur Specific Half Way Urine Protein Urine Glucose (UA) Urine Ketones Urine Blood Urine Nitrite Urine Bilirubin Urine Urobilinogen Ur Leukocyte Esterase Urine WBC (Auto) Urine RBC (Auto) U Hyaline Cast (Auto) U Epithel Cells (Auto) Urine Bacteria (Auto) Urine Yeast Nasal Screen MRSA (PCR) SARS-CoV-2, RNA, NAAT 06/29/21 06/29/21 06/29/21 16:19 16:20 17:17 WBC RBC Hgb Hct MCV MCH MCHC RDW Std Deviation RDW Coeff of [place] Plt Count MPV Immature Gran % (Auto) Neut % (Auto) Lymph % (Auto) [place] % (Auto) Eos % (Auto) Baso % (Auto) Neut # (Auto) Lymph # (Auto) [place] # (Auto) Eos # (Auto) Baso # (Auto) Immature Gran # (Auto) PT INR VBG pH 7.38 VBG pCO2 51 H VBG pO2 33 VBG HCO3 29 VBG O2 Saturation < 60.0 VBG Base Excess 3.4 Barometric Pressure 738.5 Sodium Potassium Chloride Carbon Dioxide Anion Gap BUN Creatinine Est Cr Clr Drug Dosing Est GFR ( Amer) Est GFR (Non-Af Amer) BUN/Creatinine Ratio Glucose POC Glucose Lactate Calcium Magnesium Total Bilirubin AST ALT Alkaline Phosphatase Troponin I Total Protein Albumin Globulin Albumin/Globulin Ratio Procalcitonin TSH Urine Color Yellow Urine Appearance Cloudy A Urine pH 5.[address] 1.014 Urine Protein Trace H Urine Glucose (UA) 1+ H Urine Ketones Negative Urine Blood Negative Urine Nitrite Negative Urine Bilirubin Negative Urine Urobilinogen Negative Ur Leukocyte Esterase Negative Urine WBC (Auto) 5-10 H Urine RBC (Auto) 0-4 U Hyaline Cast (Auto) 1-5 U Epithel Cells (Auto) >30 H Urine Bacteria (Auto) 1+ H Urine Yeast Budding A Nasal Screen MRSA (PCR) SARS-CoV-2, RNA, NAAT NEGATIVE 06/29/21 06/29/21 06/30/21 18:26 22:04 06:03 WBC RBC Hgb Hct MCV MCH MCHC RDW Std Deviation RDW Coeff of [place] Plt Count MPV Immature Gran % (Auto) Neut % (Auto) Lymph % (Auto) [place] % (Auto) Eos % (Auto) Baso % (Auto) Neut # (Auto) Lymph # (Auto) [place] # (Auto) Eos # (Auto) Baso # (Auto) Immature Gran # (Auto) PT INR VBG pH VBG pCO2 VBG pO2 VBG HCO3 VBG O2 Saturation VBG Base Excess Barometric Pressure Sodium Potassium Chloride Carbon Dioxide Anion Gap BUN Creatinine Est Cr Clr Drug Dosing Est GFR ( Amer) Est GFR (Non-Af Amer) BUN/Creatinine Ratio Glucose POC Glucose 206 H 252 H Lactate Calcium Magnesium Total Bilirubin AST ALT Alkaline Phosphatase Troponin I Total Protein Albumin Globulin Albumin/Globulin Ratio Procalcitonin TSH Urine Color Urine Appearance Urine pH Ur Specific Half Way Urine Protein Urine Glucose (UA) Urine Ketones Urine Blood Urine Nitrite Urine Bilirubin Urine Urobilinogen Ur Leukocyte Esterase Urine WBC (Auto) Urine RBC (Auto) U Hyaline Cast (Auto) U Epithel Cells (Auto) Urine Bacteria (Auto) Urine Yeast Nasal Screen MRSA (PCR) Negative SARS-CoV-2, RNA, NAAT 06/30/21 06/30/21 07:04 07:04 WBC 16.94 H RBC 3.39 L Hgb 10.0 L Hct 30.8 L MCV 90.9 MCH 29.5 MCHC 32.5 RDW Std Deviation 47.9 H RDW Coeff of [place] 14.6 H Plt Count 430 H MPV 9.6 Immature Gran % (Auto) 0.6 Neut % (Auto) 93.1 Lymph % (Auto) 3.8 [place] % (Auto) 2.4 Eos % (Auto) 0.0 Baso % (Auto) 0.1 Neut # (Auto) 15.75 H Lymph # (Auto) 0.65 L [place] # (Auto) 0.41 Eos # (Auto) 0.00 Baso # (Auto) 0.02 Immature Gran # (Auto) 0.11 H PT INR VBG pH VBG pCO2 VBG pO2 VBG HCO3 VBG O2 Saturation VBG Base Excess Barometric Pressure Sodium 137 Potassium 4.4 Chloride 101 Carbon Dioxide 29 Anion Gap 7 BUN 25 H Creatinine 1.32 H Est Cr Clr Drug Dosing 36.5 Est GFR ( Amer) 45.0 Est GFR (Non-Af Amer) 38.8 BUN/Creatinine Ratio 18.9 Glucose 220 H POC Glucose Lactate Calcium 8.8 Magnesium 2.0 Total Bilirubin AST ALT Alkaline Phosphatase Troponin I Total Protein Albumin Globulin Albumin/Globulin Ratio Procalcitonin TSH Urine Color Urine Appearance Urine pH Ur Specific Half Way Urine Protein Urine Glucose (UA) Urine Ketones Urine Blood Urine Nitrite Urine Bilirubin Urine Urobilinogen Ur Leukocyte Esterase Urine WBC (Auto) Urine RBC (Auto) U Hyaline Cast (Auto) U Epithel Cells (Auto) Urine Bacteria (Auto) Urine Yeast Nasal Screen MRSA (PCR) SARS-CoV-2, RNA, NAAT Diagnostic Findings Chest X-Ray 06/29/21 16:09 XR chest 1V portable HISTORY: 76 years-old Female sob, hypoxia acute shortness of breath with hypoxia COMPARISON: Chest radiograph 11/22/2021, chest CT 06/23/2021 TECHNIQUE: Portable AP view of the chest FINDINGS: Cardiac silhouette is enlarged. Atherosclerosis of the thoracic aorta. No pneumothorax. Suggested small pleural effusions. Bibasilar and left upper lung predominant airspace opacities redemonstrated with progressive consolidation within the right lung base. Bones appear grossly intact. IMPRESSION: 1. Bibasilar and left upper lung predominant airspace opacities are suggestive of multifocal pneumonia, progressed within the right lung base. 2. Cardiomegaly with small pleural effusions. ACT 112: Negative or not required by law. The above report was generated using voice recognition software. It may contain grammatical, syntax or spelling errors. Electronically signed by: Stef Pineda M.D. 06/29/2021 4:[address] 06/29/21 16:23 CT SCAN OF THE BRAIN WITHOUT IV CONTRAST CLINICAL HISTORY: Change in mental status. Hallucinations. COMPARISON STUDY: CT of the brain dated 11/16/2020. TECHNIQUE: Unenhanced axial CT scan of the brain is performed from the vertex to the skull base. A dose lowering technique was utilized adhering to the principles of ALARA. FINDINGS: Brain parenchyma: There are age-related involutional changes noting moderate s ubcortical and periventricular microangiopathic change. There is no hemorrhage, mass effect, or evidence of acute territorial ischemia by CT criteria. Espinoza- white matter differentiation is preserved. No extra-axial fluid collection is seen. Ventricles, sulci, cisterns: Prominent secondary to involutional change. Intracranial vasculature: There is atherosclerotic calcification of the cavernous carotid arteries. Calvarium: Unremarkable. Sinuses and mastoids: The visualized paranasal sinuses are clear. The mastoid air cells are well pneumatized. Orbits: The bony orbits are grossly intact. There are bilateral ocular lens implants. IMPRESSION: There is no hemorrhage, mass effect, or evidence of acute territorial ischemia by CT criteria. ACT 112: Negative or not required by law. Electronically signed by: Sridhar Ramos M.D. 06/29/2021 6:26 PM Chest CTA 06/29/21 16:24 CT ANGIOGRAM OF THE CHEST CLINICAL HISTORY: Hypoxia. COMPARISON STUDY: Chest x-ray dated 06/29/2021. Chest CT dated 06/23/2021. TECHNIQUE: Following the IV administration of 117 cc of Optiray 320, CT angiogram of the chest was performed from the upper abdomen to the thoracic inlet utilizing the pulmonary embolus protocol. Images are reviewed in the axial, sagittal, and coronal planes. 3-D MIPS images are created and assessed. IV contrast was administered without complication. A dose lowering technique was utilized adhering to the principles of ALARA. The examination is significantly compromised by motion artifact, streak artifact from metallic spinal hardware, and streak artifact from the arms which could not be elevated above the chest. CT DOSE: 1198.73 mGy.cm FINDINGS: Thyroid: Imaged portions of the thyroid gland are normal in size and attenuatio n. Thoracic aorta: There is atherosclerotic calcification of the thoracic aorta, which is normal in caliber and demonstrates standard 3-vessel arch anatomy. No dissection is seen. Pulmonary vasculature: The pulmonary trunk is normal in caliber. There are no filling defects identified in main, lobar, or segmental pulmonary branches to suggest pulmonary embolus. Heart: The heart is enlarged and without pericardial effusion. Lungs and pleural spaces: And edematous change is noted. There is multifocal patchy airspace consolidation throughout the left lung, greatest in the left apex and at the left lung base. Multifocal airspace consolidation is also seen at the right lung base, with minimal patchy airspace opacities in the right upper lobe. No pleural effusion or pneumothorax is identified. There are numerous calcified granulomas. Esophagus: Esophagus is distended and filled with debris to the level of the thoracic inlet. Mediastinum: Subcentimeter mediastinal lymph nodes are not pathologically enlarged by size criteria. [place]: There are calcified right hilar lymph nodes. No hilar adenopathy is seen. Axillae: There is no axillary lymphadenopathy. Upper abdomen: Partially visualized upper abdominal viscera is within normal limits. Skeletal structures: The skeletal structures are osteopenic. Fusion hardware is noted at the thoracolumbar junction. Spondylotic change is noted throughout the thoracic spine. Advanced arthritic change is seen in the shoulders. No lytic or blastic bony lesions are seen. IMPRESSION: 1. Streak and motion compromised examination. 2. There is no evidence of pulmonary embolus in the main, lobar, or segmental pulmonary arteries. 3. Cardiomegaly and emphysema. 4. Multifocal airspace consolidation is seen throughout both lungs as detailed above. This has progressed from 06/23/2021 and is consistent with multifocal pneumonia/aspiration pneumonitis. Radiographic follow-up to resolution is recommended. 5. The esophagus is distended and filled with fluid/debris to the level of the thoracic inlet. Note this places the patient at risk for aspiration. 6. Additional findings as above. ACT 112: Negative or not required by law. Electronically signed by: Sridhar Ramos M.D. 06/29/2021 6:34 PM (1) Aspiration pneumonia Aspiration pneumonia type: unspecified
[2021-06-30] MEDS ORDERED: CHOLECALCIFEROL 1,000 UNITS 25 MCG TAB PO SCH (09:00)
[2021-06-30] MEDS: ACETAMINOPHEN 1,000 MG/100 ML VIAL IV PRN ×2 (09:13→16:55)
[2021-06-30] MEDS: ONDANSETRON INJ 2 MG/ML 2 ML VIAL IV PRN ×2 (09:13→16:55)
[2021-06-30] MEDS: FAMOTIDINE 20 MG in SYRINGE 3 ML IV SCH ×2 (09:13→20:57)
[2021-06-30] MEDS: HEPARIN SOD 5,000 UNIT/0.5 ML VIAL SQ SCH ×2 (09:14→20:58)
[2021-06-30] MEDS: PANTOprazole 40 MG in SYRINGE 0 ML IV SCH ×2 (09:14→20:57)
[2021-06-30] MEDS: FLUTICASONE FUROATE 100MCG 14 PUFFS/INHALER INH SCH (09:15)
[2021-06-30] MEDS: UMECLIDINIUM/VILANTEROL 62.5/25MCG 7 PUFFS/INHALER INH SCH (09:16)
[2021-06-30 09:34] LABS: iSTAT Creatinine 1.3 mg/dl (0.6-1.3); iSTAT Hemoglobin 11.9 g/dl (12.0-16.0); iSTAT Ionized Calcium 1.25 mmol/l (1.12-1.32); iSTAT Potassium 4.8 mmol/L (3.3-5.0)
[2021-06-30] MEDS: NICOTINE 21 MG/24 HR TDSY TD SCH (10:53)
--- NOTE | 2021-06-30 18:24 | Hospitalist Progress Note ---
Date of Service June 30, 2021 Assessment & Plan (1) Esophageal dysmotility: Plan: - Follows with [facility] in [place]. Has missed several appts for evaluation and possible intervention due to frequent hospitalizations recently for aspiration pneumonia. -Patient has type 2 achlasia and requires OPEM -Had discussion with Dr. Staton from [facility] locally, and called [facility] for possible transfer. -Called [facility] [place], reports unable to perform surgery at this time as surgeon is not available. Also will need work up. Surgery may be completed in about 2 weeks. Due to her poor nutritional status will consult dietary. May require PICC line and TPN. - [facility] consulted for evaluation of multiple admissions for aspiration pneumonia, appreciate their recommendations. (2) Acute and chronic respiratory failure with hypoxia: Plan: - O2 75% in ED on RA with encephalopathy, placed on oxymask 8L with improved cognition and SpO2. VBG with pCO2 51. Also Albuterol and SoluMedrol 60 in ED. - CXR showed bibasilar and left upper lung predominant airspace opacities are suggestive of multifocal pneumonia, progressed since 06/23/21 within the right lung base. Cardiomegaly with small pleural effusions also noted. CTA showed that the esophagus is distended and filled with fluid/debris to the level of the thoracic inlet. - Patient was started on vancomycin and Zosyn in ED, will switch to Unasyn for aspiration pneumonia coverage. Will d/c vancomycin pending MRSA swab if negative. - Continue home inhalers. (3) MATT (acute kidney injury): Plan: - BUN 25, Cr 1.36 (baseline 0.8), both improving since previous admission. - Most likely secondary to hypovolemia, pt has frequent emesis with both food and liquids to do esophageal dysmotility. - Holding ACEi, HCTZ. - LRs @ 80cc/hr for 1 L - Renally dose all medications, hold nephrotoxic agents. (4) Hallucination: Plan: - Most likely in the setting of hypoxia due to aspiration pneumonia, has resolved with supplemental O2. CT head without acute findings. - Continue to monitor, consider further workup if present despite appropriate SaO2. (5) Hypomagnesemia: Plan: - 1.6 in ED, repleted with 2 g. - Recheck with AM labs. (6) HTN (hypertension), benign: Plan: -Hold lisinopril and HCTZ in setting of MATT. Hold diltiazem for now while pt NPO. (7) Diabetes mellitus type 2 in obese: Plan: - BGM 184 in ED. On metformin at home, will hold this. - Will start on sliding scale insulin for now, can consider long acting insulin if sugars are consistently elevated. - Accucheks achs. -Hold gabapentin for now while NPO. (8) Vitamin B12 deficiency: Plan: - Hold B12 for now while NPO (9) GERD (gastroesophageal reflux disease): Plan: - Continue IV Pepcid, Protonix. (10) Hyperlipidemia: Plan: - Hold fenofibrate and pravastatin for now while NPO. (11) Depression: Plan: - Hold Cymbalta for now while NPO. (12) Restless leg syndrome: Plan: - Hold Mirapex for now while NPO. Plan: [facility] -SCDs with [facility] Heparin BID. -Full Code. Admission and Anticipated Discharge Date Admission Date: June 29, 2021 Subjective 76 yo female reports no new symptoms, however continues to have complaints of vomiting. She had a vomiting episode this morning, where her emesis contained noodles which she consumed about 2 days ago. Daughter is at bedside and is concerned that she is not able to tolerate even liquids Review of Systems Review of Systems: All systems reviewed & are unremarkable except as noted in HPI & below Physical Exam Physical Exam: General: awake, alert, no apparent distress Head: Normocephalic, atraumatic ENT: PERRL, EOMI, no pharyngeal exudate, mucous membranes moist Chest: diffuse wheezing throughout, patient on 5L oxymask Cardiac: tachycardic with regular rhythm, no murmur, no JVD, normal peripheral pulses, good capillary refill Abdominal: NABS x 4 quadrants, soft, nontender to palpation, no rebound, guarding or tenderness Extremities: Normal inspection, no peripheral edema or erythema, calfs nontender to palpation Psych: Normal mood and affect Neuro: AAO x 3, strength intact bilaterally and rated 5/5, no motor deficits, speech is clear, no peripheral sensory deficits Skin: no rash or erythema Results & Data Results & Data ([facility]) Vital Signs (Past 12 Hours) Vital Signs Temp Pulse Pulse Resp BP Pulse Ox 06/30/21 17:41 91 06/30/21 16:22 75 06/30/21 15:28 36.8 C 70 20 150/75 H 96 06/30/21 11:32 36.7 C 68 20 147/63 H 97 06/30/21 07:56 36.5 C 70 20 128/67 96 06/30/21 07:30 71 PG Care Time/CCT Total # of Minutes Spent Total Time Spent with Patient: Total time spent is greater than 50% in coordination of care (as documented) at patient's floor/unit and/or counseling patient: Prolonged Care Time Prolonged Care Time: Yes Total Prolonged Care Time: 65 11:30 to 12:15 14:00 to 14:20 Coding Level of Care Code 51355 Subseq Hosp Care Lvl 3 Diagnoses Acute and chronic respiratory failure with hypoxia J96.21 MATT (acute kidney injury) N17.9 Hallucination R44.3 Esophageal dysmotility K22.4 Hypomagnesemia E83.42 HTN (hypertension), benign I10 Diabetes mellitus type 2 in obese E11.69; E66.9 Vitamin B12 deficiency E53.8 GERD (gastroesophageal reflux disease) K21.9 Hyperlipidemia E78.5 Depression F32.9 Restless leg syndrome G25.81 Additional Codes Prolonged Care Time - Prolonged Care Time: Yes ([id number]) Time Spent (min) 65
[2021-07-01] MEDS ORDERED: MoRPHine SULFATE 2 MG/ML CARP IV STA (02:19)
[2021-07-01] MEDS: AMPICILLIN/SULBACTAM SOD 1,500 MG in 0.9 % SODIUM CHLORIDE 100 ML IV SCH ×4 (03:33→20:27)
[2021-07-01] MEDS: ONDANSETRON 4 MG OD TAB PO SCH ×4 (04:50→20:31)
[2021-07-01] MEDS: ACETAMINOPHEN 1,000 MG/100 ML VIAL IV PRN (07:48)
[2021-07-01] MEDS: PANTOprazole 40 MG in SYRINGE 0 ML IV SCH ×2 (08:11→20:28)
[2021-07-01] MEDS: FLUTICASONE FUROATE 100MCG 14 PUFFS/INHALER INH SCH (08:12)
[2021-07-01] MEDS: NICOTINE 21 MG/24 HR TDSY TD SCH (08:12)
[2021-07-01] MEDS: UMECLIDINIUM/VILANTEROL 62.5/25MCG 7 PUFFS/INHALER INH SCH (08:12)
[2021-07-01] MEDS: HEPARIN SOD 5,000 UNIT/0.5 ML VIAL SQ SCH ×2 (08:13→20:28)
[2021-07-01] MEDS: FAMOTIDINE 20 MG in SYRINGE 3 ML IV SCH ×2 (08:19→20:28)
[2021-07-01] MEDS: INSULIN ASPART PER UNIT SC SCH ×4 (08:19→20:34)
--- NOTE | 2021-07-01 08:28 | Gastroenterology Progress Note ---
Date of Service July 01, 2021 Assessment & Plan (1) Aspiration pneumonia: Plan: Aspiration pneumonia: Hospitalist service managing. The patient has had 2 admissions for aspiration pneumonia and complications of over the last month. Recommend transfer to [facility] but [facility] did not accept patient when Dr. Bassett called yesterday. Maintain aspiration precautions. NPO at present time due to aspiration concerns. Esophageal achalasia: The patient has had work-up as noted in HPI which ultimately has demonstrated type II achalasia with endoscopic myomotomy (POEM), pneumatic dilation, or surgical myotomy recommended. At this time would recommend patient transfer to [facility] for further care and treatment as she requires advanced procedures that cannot be performed at this facility specifically treatment with POEM. Because she has recurrent aspiration events she needs to have this done expeditiously. Doubt she will do well trying to do this as an outpatient. I have a call out this morning to [facility] to try to facilitate patient transfer. Spoke to Dr. Sanford of the [facility] service who states that the patient needs further stabilization and procedure would not be able to be done immediately upon transfer. The proceduralist that performs POEM is also not available. Recommend NGT placement without EGD today - if unsuccessful placement into the stomach, would perform EGD for placement tomorrow but will require intubation and OR procedure. Patient has follow-up appointment scheduled at [facility] with Ghanshyam Rodriguez PA-C 07/06/2021. Case reviewed with Dr. Marie. Please refer to supervising physician addendum for further recommendations. I have spent 45 minutes of discrete time performing the activities of this visit which include but are not limited to review of the medical record, obtaining a history, physical exam, and entering information in the electronic record. (2) Achalasia, esophageal: Plan: see above Admission and Anticipated Discharge Date Admission Date: June 29, 2021 Supervising Physician Co-Signing Physician Notes I have seen and examined the patient. I agree with note above by ANNABEL Hammonds except as noted below. HPI Pt states some lower abd pain. NG in place and saw radiology taking bedside xray PE Abdomen pos bs, soft, no guarding nor rebound A/P achalasia---see if NG successfully placed into stomach. If it has then would recommend NG feedings with med administration through NG and patient can take limited clear liquids po. If NG cannot be placed successfully then can set up EGD with ET tube placement/general anesthesia with NG placement. Needs to keep appt at [facility] to get POEM arranged. As the supervising physician, Jose Telles MD have spent 12 minutes of discrete time performing the activities of this visit which include but not limited to review of the medical records, obtaining a history, physical exam and entering information in the electronic record. ANNABEL Hammonds has reported spending 45 minutes of discrete time with the activities of this visit. Subjective The patient is awake and alert sitting at her bedside this morning eating a clear liquid diet. She reports that she continues to experience some nausea with although denies any vomiting this morning. She reports she did have a bowel movement this morning that looked "normal". Denies melena or hematochezia. She denies any abdominal pain. Review of Systems Review of Systems: All systems reviewed & are unremarkable except as noted in Subjective Physical Exam Constitutional: WD/WN, vitals as above Respiratory: normal respiratory effort; no respiratory distress and no labored breathing Cardiovascular: Rate/Rhythm: regular rate Gastrointestinal (Abdomen): normal bowel sounds, soft, nontender, no hepatosplenomegaly Psychiatric: Orientation: alert, oriented to person and oriented to place Results & Data ([facility]) Vital Signs (Past 12 Hours) Vital Signs Temp Pulse Pulse Resp BP Pulse Ox 07/01/21 07:50 36.9 C 72 20 172/85 H 96 07/01/21 02:53 36.6 C 65 18 167/75 H 97 07/01/21 02:26 73 06/30/21 22:57 36.7 C 75 18 151/70 H 92 Laboratory Results Laboratory Results - last 24 hr 06/29/21 06/30/21 06/30/21 16:17 12:29 18:11 POC Hgb 11.9 L POC Hct 35 L POC Sodium 136 POC Potassium 4.8 POC Chloride 98 L POC Total CO2 27 POC Anion Gap 17.0 POC BUN 25 H POC Creatinine 1.3 POC Glucose 161 H 138 H POC Glucose (other) 190 H POC Ioniz Calcium Hayde 1.25 06/30/21 07/01/21 07/01/21 20:16 00:30 07:18 POC Hgb POC Hct POC Sodium POC Potassium POC Chloride POC Total CO2 POC Anion Gap POC BUN POC Creatinine POC Glucose 355 H* 101 H 135 H POC Glucose (other) POC Ioniz Calcium Hayde (1) Aspiration pneumonia Aspiration pneumonia type: unspecified
--- NOTE | 2021-07-01 13:58 | XRay Report ---
XR chest 1V portable CLINICAL HISTORY: Confirm NG placement prior to tube feeds COMPARISON STUDY: Chest CT June 29, 2021. KUB June 18, 2021. FINDINGS: There is no pneumothorax. Blunting of the left costophrenic angle is chronic. Bibasilar opa cities are again noted. Cardiomediastinal silhouette is stable. Tip of nasogastric tube projects over the gastric cardia. The tube could be advanced an additional 5 cm. IMPRESSION: Tip of nasogastric tube projects over the gastric cardia. The tube could be advanced an additional 5 cm. ACT 112: Negative or not required by law. Electronically signed by: Chriss Naranjo M.D. 07/01/2021 1:56 PM
[2021-07-01] MEDS: PEPTAMEN 1.5 CAL 1,000 ML BAG NG SCH (16:12)
[2021-07-01] MEDS: TUBE FEEDING WATER FLUSH NG SCH ×3 (16:13→20:28)
[2021-07-01] MEDS: GABAPENTIN 250 MG/5 ML 470 ML BTL PO SCH ×2 (17:11→20:27)
[2021-07-01] MEDS ORDERED: MELATONIN 3 MG TAB PO PRN (20:00)
--- NOTE | 2021-07-01 20:00 | Hospitalist Progress Note ---
Date of Service July 01, 2021 Assessment & Plan (1) Esophageal dysmotility: Plan: - Follows with [facility] in [place]. Has missed several appts for evaluation and possible intervention due to frequent hospitalizations recently for aspiration pneumonia. - On a soft food diet at home. NPO for now, consider NG tube placement. - [facility] consulted for evaluation of multiple admissions for aspiration pneumonia, appreciate their recommendations. -currently this is the main issue. Placed NG tube ON 07/01 and will try NG tube feedings. [facility] Patient is agreeable to maintian NG tube today (2) Acute and chronic respiratory failure with hypoxia: Plan: - O2 75% in ED on RA with encephalopathy, placed on oxymask 8L with improved cognition and SpO2. VBG with pCO2 51. Also Albuterol and SoluMedrol 60 in ED. - CXR showed bibasilar and left upper lung predominant airspace opacities are suggestive of multifocal pneumonia, progressed since 06/23/21 within the right lung base. Cardiomegaly with small pleural effusions also noted. CTA showed that the esophagus is distended and filled with fluid/debris to the level of the thoracic inlet. - Patient was started on vancomycin and Zosyn in ED, will switch to Unasyn for aspiration pneumonia coverage. Will d/c vancomycin pending MRSA swab if negative. - Continue home inhalers. -Patient is on 2 liters, and is currently stable (3) MATT (acute kidney injury): Plan: - BUN 25, Cr 1.36 (baseline 0.8), both improving since previous admission. - Most likely secondary to hypovolemia, pt has frequent emesis with both food and liquids to do esophageal dysmotility. - Holding ACEi, HCTZ. - LRs @ 80cc/hr for 1 L - Renally dose all medications, hold nephrotoxic agents. (4) Hallucination: Plan: - Most likely in the setting of hypoxia due to aspiration pneumonia, has resolved with supplemental O2. CT head without acute findings. - Continue to monitor, consider further workup if present despite appropriate SaO2. (5) Hypomagnesemia: Plan: - 1.6 in ED, repleted with 2 g. - Recheck with AM labs. (6) HTN (hypertension), benign: Plan: -Hold lisinopril and HCTZ in setting of MATT. Hold diltiazem for now while pt NPO. (7) Diabetes mellitus type 2 in obese: Plan: - BGM 184 in ED. On metformin at home, will hold this. - Will start on sliding scale insulin for now, can consider long acting insulin if sugars are consistently elevated. - Accucheks achs. -Hold gabapentin for now while NPO. (8) Vitamin B12 deficiency: Plan: - Hold B12 for now while NPO (9) GERD (gastroesophageal reflux disease): Plan: - Continue IV Pepcid, Protonix. (10) Hyperlipidemia: Plan: - Hold fenofibrate and pravastatin for now while NPO. (11) Depression: Plan: - Hold Cymbalta for now while NPO. (12) Restless leg syndrome: Plan: - Hold Mirapex for now while NPO. Plan: -Admit to [facility]. -SCDs with [facility] Heparin BID. -Full Code. Admission and Anticipated Discharge Date Admission Date: June 29, 2021 Subjective Patient reports she toleratd NG tube placement. She though is having second thoughts and is considering in getting it removed. Patient also reports that she did not sleep well last night and is asking for sleep. Review of Systems Review of Systems: All systems reviewed & are unremarkable except as noted in HPI & below Physical Exam Physical Exam: General: awake, alert, no apparent distress Head: Normocephalic, atraumatic ENT: PERRL, EOMI, no pharyngeal exudate, mucous membranes moist Chest: diffuse wheezing throughout, patient on 5L oxymask Cardiac: tachycardic with regular rhythm, no murmur, no JVD, normal peripheral pulses, good capillary refill Abdominal: NABS x 4 quadrants, soft, nontender to palpation, no rebound, guarding or tenderness Extremities: Normal inspection, no peripheral edema or erythema, calfs nontender to palpation Psych: Normal mood and affect Neuro: AAO x 3, strength intact bilaterally and rated 5/5, no motor deficits, speech is clear, no peripheral sensory deficits Skin: no rash or erythema Results & Data Results & Data ([facility]) Vital Signs (Past 12 Hours) Vital Signs Temp Pulse Pulse Pulse Resp BP Pulse Ox 07/01/21 19:11 36.2 C L 79 20 169/93 H 92 07/01/21 16:44 71 07/01/21 15:20 36.4 C L 68 20 174/75 H 95 07/01/21 11:14 36.3 C L 68 20 172/75 H 97 07/01/21 08:15 68 PG Care Time/CCT Total # of Minutes Spent Total Time Spent with Patient: Total time spent is greater than 50% in coordination of care (as documented) at patient's floor/unit and/or counseling patient: Coding Level of Care Code 97809 Subseq Hosp Care Lvl 3 Diagnoses Acute and chronic respiratory failure with hypoxia J96.21 MATT (acute kidney injury) N17.9 Hallucination R44.3 Esophageal dysmotility K22.4 Hypomagnesemia E83.42 HTN (hypertension), benign I10 Diabetes mellitus type 2 in obese E11.69; E66.9 Vitamin B12 deficiency E53.8 GERD (gastroesophageal reflux disease) K21.9 Hyperlipidemia E78.5 Depression F32.9 Restless leg syndrome G25.81 Time Spent (min) 35
[2021-07-01 22:56] LABS: BUN Creatinine Ratio 14.4 (10-20); Calcium 9.5 mg/dl (8.5-10.1); Est GFR (African American) 55.5 ml/min; Est GFR (Non-African American) 47.9 ml/min; Potassium 3.7 mmol/L (3.5-5.1)
[2021-07-02] MEDS: TUBE FEEDING WATER FLUSH NG SCH ×6 (01:09→21:11)
[2021-07-02] MEDS: AMPICILLIN/SULBACTAM SOD 1,500 MG in 0.9 % SODIUM CHLORIDE 100 ML IV SCH ×4 (03:11→21:17)
[2021-07-02] MEDS: ONDANSETRON 4 MG OD TAB PO SCH ×4 (04:58→22:18)
[2021-07-02 07:53] LABS: Basophils # (auto) 0.02 K/uL (0-0.2); Basophils % (auto) 0.2 %; Eosinophils # (auto) 0.22 K/uL (0-0.5); Eosinophils % (auto) 2.6 %; Hematocrit (blood only) 32.3 % (37-47); Hemoglobin 10.7 g/dL (12.0-16.0); Immature Granulocytes # (auto) 0.02 K/uL (0.00-0.02); Immature Granulocytes % (auto) 0.2 %; Lymphocytes # (auto) 0.83 K/uL (1.2-3.4); Lymphocytes % (auto) 9.8 %; Mean Corpuscular Hemoglobin 29.7 pg (25-34); Mean Corpuscular Hgb Conc 33.1 g/dL (32-36); Mean Corpuscular Volume 89.7 fL (80-100); Mean Platelet Volume 9.4 fL (7.4-10.4); Monocytes # (auto) 0.63 K/uL (0.11-0.59); Monocytes % (auto) 7.5 %; Neutrophils # (auto) 6.73 K/uL (1.4-6.5); Neutrophils % (auto) 79.7 %; Platelet Count 499 K/uL (130-400); RDW Coefficient of Variation 14.4 % (11.5-14.5); RDW Standard Deviation 47.7 fL (36.4-46.3); White Blood Count 8.45 K/uL (4.8-10.8)
[2021-07-02] MEDS ORDERED: oxyCODONE/ACETAMINOPHEN 5mg/325mg TAB PO PRN (07:57)
[2021-07-02 08:04] LABS: Partial Thromboplastin Ratio 0.9; Partial Thromboplastin Time 24.1 Seconds (21.0-31.0); Prothrombin Time 10.9 Seconds (9.0-12.0)
[2021-07-02 08:19] LABS: Albumin Globulin Ratio 1.1 (0.9-2); Albumin Level 3.4 gm/dl (3.4-5.0); BUN Creatinine Ratio 13.4 (10-20); Bilirubin,Total 0.5 mg/dl (0.2-1.0); Calcium 9.4 mg/dl (8.5-10.1); Est GFR (African American) 47.1 ml/min; Est GFR (Non-African American) 40.7 ml/min; Globulin 3.1 gm/dl (2.5-4.0); Magnesium 1.8 mg/dl (1.7-2.4); Phosphorus 4.1 mg/dl (2.5-4.9); Potassium 3.9 mmol/L (3.5-5.1); Total Protein 6.5 gm/dl (6.0-8.3)
[2021-07-02] MEDS: oxyCODONE HCL SOLN 5 MG/5 ML UDC NG PRN ×2 (08:20→21:06)
--- NOTE | 2021-07-02 08:55 | Gastroenterology Progress Note ---
Date of Service July 02, 2021 Assessment & Plan (1) Aspiration pneumonia: Plan: Aspiration pneumonia: Hospitalist service managing. The patient has had 2 admissions for aspiration pneumonia and complications of over the last month. Recommend transfer to [facility] but [facility] did not accept patient. Maintain aspiration precautions. Esophageal achalasia: The patient has had work-up as noted in HPI which ultimately has demonstrated type II achalasia with endoscopic myomotomy (POEM), pneumatic dilation, or surgical myotomy recommended. Recommended patient transfer to [facility] for further care and treatment as she requires advanced procedures that cannot be performed at this facility specifically treatment with POEM. Because she has recurrent aspiration events she needs to have this done expeditiously. Called and spoke to Dr. Sanford of the [facility] service yesterday who states that the patient needs further stabilization and procedure would not be able to be done immediately upon transfer. The proceduralist that performs POEM is also not available. Could consider tertiary care transfer to another facility. Spoke to patient's daughter, Silvia, who states she would prefer that care be done through [facility]. She does not feel that patient will do well once home as she will not follow dietary recommendations. Recommend continuing NGT feedings. Patient has follow-up appointment scheduled at [facility] with Ghanshyam Rodriguez PA-C 07/06/2021. Case reviewed with Dr. Crespo. Please refer to supervising physician addendum for further recommendations. I have spent 25 minutes of discrete time performing the activities of this visit which include but are not limited to review of the medical record, obtaining a history, physical exam, and entering information in the electronic record. (2) Achalasia, esophageal: Plan: see above Admission and Anticipated Discharge Date Admission Date: June 29, 2021 Supervising Physician Co-Signing Physician Notes I interviewed and examined the patient and reviewed the medical record, with the following observations: Subjective: Case discussed directly with the patient and with her daughter by phone. Patient is stable on NG tube feedings at 40 ml per hour, well tolerated, no respiratory or digestive symptoms noted. Per Oral Esophageal Myotomy procedure is recommended, but not currently available at [facility]. Both the patient and her daughter stated that they would be willing to travel to [facility], or [place] () to have the procedure performed if this was available Physical Examination: Benign abdominal examination Chart Review: No additional findings I agree with the assessment as outlined in this consultation, with the following observations: No aspiration episodes on NG tube feedings, but the patient is unlikely to follow this regimen outside of the hospital I agree with the plan of care as outlined in this consultation, with the following changes and/or additions: I have recommended exploring the feasibility of transfer or referral to a medical center in [place], [place], or [place] for P.O.E.M. procedure if available in the near future. Consent obtained to pursue this possibility. As the supervising physician, I have spent 20 minutes of discrete time performing the activities of this consultation which include, but are not limited to, review of the medical record, obtaining a history, physical examination, and entering information into the electronic record. ANNABEL Hammonds, has reported spending 25 minutes of discrete time with the activities of the consultation. Subjective Patient is awake and alert this morning. She reports that she is having pain primarily in her back, head, legs. She has an NG tube in her right nare and has tube feedings running. She states that she hates the tube does not want it in. Denies any abdominal pain. Reports 2 bowel movements yesterday. No nausea or vomiting per her report. Denies any flatus. Would like her daughter Silvia lockett with an update Review of Systems Review of Systems: All systems reviewed & are unremarkable except as noted in Subjective Physical Exam Constitutional: WD/WN, vitals as above Oxymask Respiratory: normal respiratory effort; no respiratory distress and no labored breathing Cardiovascular: Rate/Rhythm: regular rate Gastrointestinal (Abdomen): normal bowel sounds, soft, nontender, no hepatosplenomegaly Psychiatric: Orientation: alert, oriented to person and oriented to place Results & Data ([facility]) Vital Signs (Past 12 Hours) Vital Signs Temp Pulse Pulse Pulse Resp BP Pulse Ox 07/02/21 08:10 37.3 C 80 20 149/78 H 93 07/02/21 07:30 77 07/02/21 03:36 65 18 150/82 H 95 07/02/21 00:03 75 07/01/21 23:06 37.0 C 73 18 150/77 H 92 07/01/21 21:00 Pulse Ox 07/02/21 08:10 07/02/21 07:30 07/02/21 03:36 03/17/22 00:03 07/01/21 23:06 07/01/21 21:00 97 Laboratory Results Laboratory Results - last 24 hr 07/01/21 07/01/21 07/01/21 11:27 16:17 20:06 WBC RBC Hgb Hct MCV MCH MCHC RDW Std Deviation RDW Coeff of [place] Plt Count MPV Immature Gran % (Auto) Neut % (Auto) Lymph % (Auto) [place] % (Auto) Eos % (Auto) Baso % (Auto) Neut # (Auto) Lymph # (Auto) [place] # (Auto) Eos # (Auto) Baso # (Auto) Immature Gran # (Auto) PT INR APTT PTT Ratio Sodium Potassium Chloride Carbon Dioxide Anion Gap BUN Creatinine Est Cr Clr Drug Dosing Est GFR ( Amer) Est GFR (Non-Af Amer) BUN/Creatinine Ratio Glucose POC Glucose 198 H 114 H 142 H Calcium Phosphorus Magnesium Total Bilirubin AST ALT Alkaline Phosphatase Total Protein Albumin Globulin Albumin/Globulin Ratio 07/01/21 07/02/21 07/02/21 22:20 07:35 07:35 WBC 8.45 RBC 3.60 L Hgb 10.7 L Hct 32.3 L MCV 89.7 MCH 29.7 MCHC 33.1 RDW Std Deviation 47.7 H RDW Coeff of [place] 14.4 Plt Count 499 H MPV 9.4 Immature Gran % (Auto) 0.2 Neut % (Auto) 79.7 Lymph % (Auto) 9.8 [place] % (Auto) 7.5 Eos % (Auto) 2.6 Baso % (Auto) 0.2 Neut # (Auto) 6.73 H Lymph # (Auto) 0.83 L [place] # (Auto) 0.63 H Eos # (Auto) 0.22 Baso # (Auto) 0.02 Immature Gran # (Auto) 0.02 PT 10.9 INR 1.0 APTT 24.1 PTT Ratio 0.9 Sodium 138 Potassium 3.7 Chloride 99 Carbon Dioxide 31 Anion Gap 8 BUN 16 Creatinine 1.11 Est Cr Clr Drug Dosing 42.0 Est GFR ( Amer) 55.5 Est GFR (Non-Af Amer) 47.9 BUN/Creatinine Ratio 14.4 Glucose 149 H POC Glucose Calcium 9.5 Phosphorus Magnesium Total Bilirubin AST ALT Alkaline Phosphatase Total Protein Albumin Globulin Albumin/Globulin Ratio 07/02/21 07/02/21 07:35 07:44 WBC RBC Hgb Hct MCV MCH MCHC RDW Std Deviation RDW Coeff of [place] Plt Count MPV Immature Gran % (Auto) Neut % (Auto) Lymph % (Auto) [place] % (Auto) Eos % (Auto) Baso % (Auto) Neut # (Auto) Lymph # (Auto) [place] # (Auto) Eos # (Auto) Baso # (Auto) Immature Gran # (Auto) PT INR APTT PTT Ratio Sodium 138 Potassium 3.9 Chloride 100 Carbon Dioxide 32 Anion Gap 6 BUN 17 Creatinine 1.27 H Est Cr Clr Drug Dosing 36.0 Est GFR ( Amer) 47.1 Est GFR (Non-Af Amer) 40.7 BUN/Creatinine Ratio 13.4 Glucose 195 H POC Glucose 231 H Calcium 9.4 Phosphorus 4.1 Magnesium 1.8 Total Bilirubin 0.5 AST 8 L ALT 9 Alkaline Phosphatase 71 Total Protein 6.5 Albumin 3.4 Globulin 3.1 Albumin/Globulin Ratio 1.1 Diagnostic Findings Chest X-Ray 07/01/21 13:22 XR chest 1V portable CLINICAL HISTORY: Confirm NG placement prior to tube feeds COMPARISON STUDY: Chest CT June 29, 2021. KUB June 18, 2021. FINDINGS: There is no pneumothorax. Blunting of the left costophrenic angle is chronic. Bibasilar opacities are again noted. Cardiomediastinal silhouette is stable. Tip of nasogastric tube projects over the gastric cardia. The tube could be advanced an additional 5 cm. IMPRESSION: Tip of nasogastric tube projects over the gastric cardia. The tube could be advanced an additional 5 cm. ACT 112: Negative or not required by law. Electronically signed by: Chriss Naranjo M.D. 07/01/2021 1:56 PM (1) Aspiration pneumonia Aspiration pneumonia type: unspecified
[2021-07-02] MEDS: INSULIN ASPART PER UNIT SC SCH ×3 (10:22→18:21)
[2021-07-02] MEDS: PANTOprazole 40 MG in SYRINGE 0 ML IV SCH (10:26)
[2021-07-02] MEDS: FAMOTIDINE 20 MG in SYRINGE 3 ML IV SCH (10:29)
[2021-07-02] MEDS: NICOTINE 21 MG/24 HR TDSY TD SCH (10:33)
[2021-07-02] MEDS: GABAPENTIN 250 MG/5 ML 470 ML BTL PO SCH ×3 (10:45→20:51)
[2021-07-02] MEDS: dilTIAZem HCL 180 MG CAPCR PO SCH (10:48)
[2021-07-02] MEDS: DULoxetine HCL 60 MG CAP PO SCH (10:49)
[2021-07-02] MEDS: DULoxetine HCL 30 MG CAP PO SCH (10:49)
[2021-07-02] MEDS: UMECLIDINIUM/VILANTEROL 62.5/25MCG 7 PUFFS/INHALER INH SCH (10:51)
[2021-07-02] MEDS: FLUTICASONE FUROATE 100MCG 14 PUFFS/INHALER INH SCH (10:52)
[2021-07-02] MEDS: CYANOCOBALAMIN (B-12) 500 MCG TABLET PO SCH (11:21)
[2021-07-02] MEDS: PRAVASTATIN SOD 40 MG TAB PO SCH (11:22)
[2021-07-02] MEDS: HEPARIN SOD 5,000 UNIT/0.5 ML VIAL SQ SCH ×2 (11:25→21:16)
[2021-07-02] MEDS ORDERED: Nursing to Pharmacy Communication SCH (12:45)
[2021-07-02] MEDS ORDERED: INSULIN ASPART PER UNIT ONE (13:08)
[2021-07-02] MEDS: PEPTAMEN 1.5 CAL 1,000 ML BAG NG SCH ×2 (13:14→17:28)
[2021-07-02] MEDS: ACETAMINOPHEN 1,000 MG/100 ML VIAL IV PRN (16:09)
--- NOTE | 2021-07-02 20:15 | Hospitalist Progress Note ---
Date of Service July 02, 2021 Assessment & Plan (1) Esophageal dysmotility: Plan: - Follows with [facility] in [place]. Has missed several appts for evaluation and possible intervention due to frequent hospitalizations recently for aspiration pneumonia. - On a soft food diet at home. NPO for now, consider NG tube placement. - [facility] consulted for evaluation of multiple admissions for aspiration pneumonia, appreciate their recommendations. -currently this is the main issue. Due to esophageal achalasia, patient requires Tube feedings or TPN. Placed NG tube ON 07/01 and thankfully tolerating NG tube feedings. Patient will follow up with [facility] on Tuesday. Patient is agreeable to maintain NG tube today and continue this at discharge. -Nursing an dcase management is concerned however regarding risk of aspiration and if this NG tube gets dislodged. Of course, with NG tube feedings or any feeding tube, there is risk of aspiration. However given her severe achalasia, an inability to have the POEM currently until 2 weeks at [facility] at the earliest, a PEG tube, seems too aggressive for only a 2 week period Parenteral nutrition also has it's own complications: sepsis, bacteremia, fluid overload among others. Currently recommending discharge with NG tube placement. Perhaps have a piece of tape so patient and family knows if it gets dislodged. Case manangement would like to see what recommends. (2) Acute and chronic respiratory failure with hypoxia: Plan: - O2 75% in ED on RA with encephalopathy, placed on oxymask 8L with improved cognition and SpO2. VBG with pCO2 51. Also Albuterol and SoluMedrol 60 in ED. - CXR showed bibasilar and left upper lung predominant airspace opacities are suggestive of multifocal pneumonia, progressed since 06/23/21 within the right lung base. Cardiomegaly with small pleural effusions also noted. CTA showed that the esophagus is distended and filled with fluid/debris to the level of the thoracic inlet. - Patient was started on vancomycin and Zosyn in ED, will switch to Unasyn for aspiration pneumonia coverage. Will d/c vancomycin pending MRSA swab if negative. - Continue home inhalers. -Patient is on 2 liters, and is currently stable (3) MATT (acute kidney injury): Plan: - BUN 25, Cr 1.36 (baseline 0.8), both improving since previous admission. - Most likely secondary to hypovolemia, pt has frequent emesis with both food and liquids to do esophageal dysmotility. - Holding ACEi, HCTZ. - LRs @ 80cc/hr for 1 L - Renally dose all medications, hold nephrotoxic agents. (4) Hallucination: Plan: - Most likely in the setting of hypoxia due to aspiration pneumonia, has resolved with supplemental O2. CT head without acute findings. - Continue to monitor, -This has resolved over past 48 hours. restarted narcotics, will need to monitor. (5) Hypomagnesemia: Plan: - 1.6 in ED, repleted with 2 g. - improved (6) HTN (hypertension), benign: Plan: -Hold lisinopril and HCTZ in setting of MATT. Hold diltiazem for now while pt NPO. (7) Diabetes mellitus type 2 in obese: Plan: - BGM 184 in ED. On metformin at home, will hold this. - Will start on sliding scale insulin for now, can consider long acting insulin if sugars are consistently elevated. - Accucheks achs. -restarted home meds (8) Vitamin B12 deficiency: Plan: - Hold B12 for now while NPO (9) GERD (gastroesophageal reflux disease): Plan: - Continue IV Pepcid, Protonix. (10) Hyperlipidemia: Plan: -restarted home meds (11) Depression: Plan: - restarted meds (12) Restless leg syndrome: Plan: - restarted home meds (13) Sepsis: Plan: Sepsis POA e/b +3/4 SIRS criteria and SOFA score of 3 76-year-old female who presents in acute on chronic respiratory failure in the setting of recurrent aspiration pneumonia and esophageal achalasia. On admission the patient was positive for 3/4 of SIRS criteria and has a SOFA score of 3. aspiration pneumonia, WBCs 16.50, BUN 25, creatinine 1.36, achycardia 108, tachypnea 29, normotensive 122/72 MAP 88, room air hypoxia 75%, spO2 93% on 5L oxymask (36-69% FiO2) calculated P/F ratio of at most 192 based on FiO2 of minimum 36%, Risk Factor(s): Age, aspiration pneumonia, Treatment: O2 via oxygen mask, IV Vancomycin, IV Zosyn, IV Solu-Medrol, IV magnesium, IV Unasyn, DuoNebs, IV APAP, blood cultures x2, chest x-ray, chest CT, head CT, Plan: -Admit to [facility]. -SCDs with [place] Heparin BID. -Full Code. Admission and Anticipated Discharge Date Admission Date: June 29, 2021 Subjective Patient currently is tolerating NG tube. Patient is agreeable to NG tube at discharge. She states she shows understanding that this is temporary. Patient reports she prefers this over parenteral nutrition. Patient is happy her medications have been restarted. Review of Systems Review of Systems: All systems reviewed & are unremarkable except as noted in HPI & below Physical Exam Physical Exam: General: awake, alert, no apparent distress Head: Normocephalic, atraumatic ENT: PERRL, EOMI, no pharyngeal exudate, mucous membranes moist Chest: diffuse wheezing throughout, patient on 5L oxymask Cardiac: tachycardic with regular rhythm, no murmur, no JVD, normal peripheral pulses, good capillary refill Abdominal: NABS x 4 quadrants, soft, nontender to palpation, no rebound, guarding or tenderness Extremities: Normal inspection, no peripheral edema or erythema, calfs nontender to palpation Psych: Normal mood and affect Neuro: AAO x 3, strength intact bilaterally and rated 5/5, no motor deficits, speech is clear, no peripheral sensory deficits Skin: no rash or erythema Results & Data Results & Data ([facility]) Vital Signs (Past 12 Hours) Vital Signs Temp Pulse Pulse Pulse Resp BP Pulse Ox 07/02/21 19:19 36.4 C L 73 18 135/73 92 07/02/21 15:37 74 07/02/21 15:27 36.5 C 74 20 120/76 91 07/02/21 11:32 36.5 C 67 20 157/81 H 90 PG Care Time/CCT Total # of Minutes Spent Total Time Spent with Patient: Total time spent is greater than 50% in coordination of care (as documented) at patient's floor/unit and/or counseling patient: Coding Level of Care Code 01044 Subseq Hosp Care Lvl 3 Diagnoses Esophageal dysmotility K22.4 Acute and chronic respiratory failure with hypoxia J96.21 MATT (acute kidney injury) N17.9 Hallucination R44.3 Hypomagnesemia E83.42 HTN (hypertension), benign I10 Diabetes mellitus type 2 in obese E11.69; E66.9 Vitamin B12 deficiency E53.8 GERD (gastroesophageal reflux disease) K21.9 Hyperlipidemia E78.5 Depression F32.9 Restless leg syndrome G25.81 Sepsis A41.9 Time Spent (min) 50
[2021-07-02] MEDS: FAMOTIDINE 20 MG TAB PO SCH (20:51)
[2021-07-02] MEDS: LANSOPRAZOLE 30 MG SOLTAB PO SCH (20:51)
[2021-07-03] MEDS: INSULIN ASPART PER UNIT SC SCH ×4 (00:21→18:24)
[2021-07-03] MEDS: TUBE FEEDING WATER FLUSH NG SCH ×5 (01:08→16:42)
[2021-07-03] MEDS: AMPICILLIN/SULBACTAM SOD 1,500 MG in 0.9 % SODIUM CHLORIDE 100 ML IV SCH ×3 (03:39→15:20)
[2021-07-03] MEDS: ONDANSETRON 4 MG OD TAB PO SCH ×3 (04:49→16:42)
[2021-07-03] MEDS: oxyCODONE HCL SOLN 5 MG/5 ML UDC NG PRN ×3 (05:17→20:38)
--- NOTE | 2021-07-03 09:09 | Gastroenterology Progress Note ---
Date of Service July 03, 2021 Assessment & Plan (1) Aspiration pneumonia: Plan: Aspiration pneumonia: Hospitalist service managing. The patient has had 2 admissions for aspiration pneumonia and complications of over the last month. Recommend transfer to [facility] but [facility] did not accept patient. Patient and family are now willing to consider alternate tertiary care centers. Reviewed with hospitalist. Maintain aspiration precautions. Maintain n.p.o. Esophageal achalasia: The patient has had work-up as noted in HPI which ultimately has demonstrated type II achalasia with endoscopic myomotomy (POEM), pneumatic dilation, or surgical myotomy recommended. Patient family willing to consider alternate tertiary care centers as noted above. When I spoke to the patient's daughter yesterday, she states that she was concerned the patient would not be compliant with dietary recommendations if discharged to home. Recommend continuing NGT feedings. Patient has follow-up appointment scheduled at [facility] with Ghanshyam Rodriguez PA-C 07/06/2021. Case reviewed with Dr. Crespo. Please refer to supervising physician addendum for further recommendations. I have spent 25 minutes of discrete time performing the activities of this visit which include but are not limited to review of the medical record, obtaining a history, physical exam, and entering information in the electronic record. (2) Achalasia, esophageal: Plan: see above Admission and Anticipated Discharge Date Admission Date: June 29, 2021 Supervising Physician Co-Signing Physician Notes I interviewed and examined the patient and reviewed the medical record, with the following observations: Subjective: NG tube feedings up to 80 ml per hour of Peptamen 1.5 kcal/ml, very well tolerated, no vomiting, regurgitation, aspiration, patient feels well, no complaints Physical Examination: benign abdominal examination Chart Review: No new findings I agree with the assessment as outlined in this consultation, with the following observations: Discussed with the patient this afternoon. She has been accepted for transfer to [facility] for treatment of achalasia, plan of care is for evaluation and treatment with per oral esophageal myotomy (P.O.E.M.) I agree with the plan of care as outlined in this consultation, with the following changes and/or additions: Agree with planned transfer. Continue NG tube feeding for now. As the supervising physician, I have spent 20 minutes of discrete time performing the activities of this consultation which include, but are not limited to, review of the medical record, obtaining a history, physical examination, and entering information into the electronic record. ANNABEL Hammonds, has reported spending 25 minutes of discrete time with the activities of the consultation. Subjective Patient awake alert and oriented this morning. She continues to struggle with back pain. She is moving independently back and forth from her bed to bedside commode without difficulty. Denies any nausea or vomiting. She seems to be tolerating NG tube without difficulty although she does states she wants it out. Tube feedings are going well and she is tolerating well. Remains n.p.o. except for ice chips. Denies any abdominal pain. Yesterday patient and family were initially reluctant to consider transfer elsewhere however on discussion with Dr. Crespo yesterday they agreed to transfer to other tertiary care facility for evaluation of P.O.E.M. Review of Systems Review of Systems: All systems reviewed & are unremarkable except as noted in Subjective Physical Exam Constitutional: WD/WN, vitals as above Oxymask, NGT Respiratory: normal respiratory effort; no respiratory distress and no labored breathing Cardiovascular: Rate/Rhythm: regular rate Gastrointestinal (Abdomen): normal bowel sounds, soft, nontender, no hepatosplenomegaly Psychiatric: Orientation: alert, oriented to person and oriented to place Results & Data ([facility]) Vital Signs (Past 12 Hours) Vital Signs Temp Pulse Pulse Pulse Resp BP Pulse Ox 07/03/21 07:39 36.4 C L 72 18 120/76 95 07/03/21 07:34 74 07/03/21 03:24 36.6 C 72 18 111/63 95 07/02/21 22:25 71 07/02/21 21:45 36.5 C 72 18 118/77 94 Laboratory Results Laboratory Results - last 24 hr 07/02/21 07/02/21 07/03/21 11:22 18:14 00:06 POC Glucose 238 H 155 H 159 H 07/03/21 06:07 POC Glucose 167 H (1) Aspiration pneumonia Aspiration pneumonia type: unspecified
[2021-07-03 09:38] LABS: BUN Creatinine Ratio 16.1 (10-20); Calcium 9.1 mg/dl (8.5-10.1); Creatinine Clr Calc Pharmacy 36.9 ml/min; Est GFR (African American) 48.5 ml/min; Est GFR (Non-African American) 41.9 ml/min; Potassium 3.7 mmol/L (3.5-5.1)
[2021-07-03] MEDS: GABAPENTIN 250 MG/5 ML 470 ML BTL PO SCH (10:07)
[2021-07-03] MEDS: DULoxetine HCL 30 MG CAP PO SCH (10:09)
[2021-07-03] MEDS: dilTIAZem HCL 180 MG CAPCR PO SCH (10:10)
[2021-07-03] MEDS: DULoxetine HCL 60 MG CAP PO SCH (10:10)
[2021-07-03] MEDS: PRAVASTATIN SOD 40 MG TAB PO SCH (10:11)
[2021-07-03] MEDS: CYANOCOBALAMIN (B-12) 500 MCG TABLET PO SCH (10:12)
[2021-07-03] MEDS: FAMOTIDINE 20 MG TAB PO SCH ×2 (10:13→20:32)
[2021-07-03] MEDS: LANSOPRAZOLE 30 MG SOLTAB PO SCH ×2 (10:14→20:32)
[2021-07-03] MEDS ORDERED: Nursing to Pharmacy Communication SCH (10:15)
[2021-07-03] MEDS ORDERED: ACETAMINOPHEN SUSP 325 MG/10.15 ML UDC PO PRN (10:27)
[2021-07-03] MEDS ORDERED: ACETAMINOPHEN SUSP 325 MG/10.15 ML UDC NG PRN (10:30)
[2021-07-03] MEDS ORDERED: SUCRALFATE 1 GM/10 ML UDC NG PRN (10:35)
[2021-07-03] MEDS: FLUTICASONE FUROATE 100MCG 14 PUFFS/INHALER INH SCH (10:36)
[2021-07-03] MEDS: UMECLIDINIUM/VILANTEROL 62.5/25MCG 7 PUFFS/INHALER INH SCH (10:36)
[2021-07-03] MEDS: NICOTINE 21 MG/24 HR TDSY TD SCH (10:36)
[2021-07-03] MEDS: HEPARIN SOD 5,000 UNIT/0.5 ML VIAL SQ SCH (10:38)
[2021-07-03] MEDS ORDERED: traMADol HCL 50 MG TABLET NG PRN (10:45)
[2021-07-03] MEDS: GABAPENTIN 250 MG/5 ML 470 ML BTL NG SCH ×2 (13:53→20:37)
--- NOTE | 2021-07-03 16:06 | Discharge Summary ---
Date of Service July 03, 2021 Admission HPI Per Admitting Provider This patient is a 76-year-old female with PMH achalasia, COPD, HTN, and DM2 who presents today with shortness of breath. Patient was recently discharged 4 days ago on , 06/25, after being treated for sepsis secondary to aspiration pneumonia. She finished her outpatient abx several days ago, and had been feeling well up until yesterday when she had body aches, chills and suspected she may have a fever. This afternoon, patient's daughter reports she was complaining of difficulty breathing and later having vivid visual hallucinations, which typically happens when her O2 is low. She reports ongoing nausea and vomiting after meals which is typical for her, patient does have esophageal dysmotility issues that cause her to frequently regurgitate her food and has caused her to develop aspiration pneumonia in the past, most recently on 06/22 she was admitted for this. She does have an appt with [facility] in [place] for evaluation and possible procedure, however her recent hospitalizations have been preventing her from making her appts. She is otherwise without complaints, denies chest pain, palpitations, cough, abdominal pain, diarrhea, constipation, unilateral edema, hemoptysis. Principal Diagnosis Recurrent aspiration pneumonia Type II Achalasia Discharge Exam GENERAL: 76 yo well-developed, well-nourished elderly WF. NAD. LUNGS: Clear to auscultation bilaterally. No accessory muscle use. No W/R/R. CARDIOVASCULAR: Regular rate and rhythm. No M/G/R. No JVD. ABDOMEN: NGT in place. Soft, non-tender and non-distended. BS normal x 4 quad. EXTREMITIES: No edema. Non-tender. Peripheral pulses +2/4. NEUROLOGIC: A&O x3. PSYCHIATRIC: Cooperative. Appropriate mood and affect. SKIN: Warm, dry, intact. No rashes or lesions. Discharge Data Allergies Allergy/AdvReac Type Severity Reaction Status Date / Time atorvastatin [From Lipitor] Allergy Intermediate Skin Rash Verified 06/29/21 17:37 morphine AdvReac Intermediate Nausea Verified 06/29/21 17:37 Consultations 06/29/21 19:16 ED Decision to Admit Stat 06/29/21 22:10 Consult Gastroenterology Routine Ordered Studies 07/02/21 07:35 07/03/21 09:00 Chest X-Ray 06/29/21 16:09 XR chest 1V portable HISTORY: 76 years-old Female sob, hypoxia acute shortness of breath with hypoxia COMPARISON: Chest radiograph 11/22/2021, chest CT 06/23/2021 TECHNIQUE: Portable AP view of the chest FINDINGS: Cardiac silhouette is enlarged. Atherosclerosis of the thoracic aorta. No pneumothorax. Suggested small pleural effusions. Bibasilar and left upper lung predominant airspace opacities redemonstrated with progressive consolidation within the right lung base. Bones appear grossly intact. IMPRESSION: 1. Bibasilar and left upper lung predominant airspace opacities are suggestive of multifocal pneumonia, progressed within the right lung base. 2. Cardiomegaly with small pleural effusions. ACT 112: Negative or not required by law. The above report was generated using voice recognition software. It may contain grammatical, syntax or spelling errors. Electronically signed by: Stef Pineda M.D. 06/29/2021 4:[address] 06/29/21 16:23 CT SCAN OF THE BRAIN WITHOUT IV CONTRAST CLINICAL HISTORY: Change in mental status. Hallucinations. COMPARISON STUDY: CT of the brain dated 11/16/2020. TECHNIQUE: Unenhanced axial CT scan of the brain is performed from the vertex to the skull base. A dose lowering technique was utilized adhering to the principles of ALARA. FINDINGS: Brain parenchyma: There are age-related involutional changes noting moderate subcortical and periventricular microangiopathic change. There is no hemorrhage, mass effect, or evidence of acute territorial ischemia by CT criteria. Espinoza- white matter differentiation is preserved. No extra-axial fluid collection is seen. Ventricles, sulci, cisterns: Prominent secondary to involutional change. Intracranial vasculature: There is atherosclerotic calcification of the cavernous carotid arteries. Calvarium: Unremarkable. Sinuses and mastoids: The visualized paranasal sinuses are clear. The mastoid air cells are well pneumatized. Orbits: The bony orbits are grossly intact. There are bilateral ocular lens implants. IMPRESSION: There is no hemorrhage, mass effect, or evidence of acute territorial ischemia by CT criteria. ACT 112: Negative or not required by law. Electronically signed by: Sridhar Ramos M.D. 06/29/2021 6:26 PM Chest CTA 06/29/21 16:24 CT ANGIOGRAM OF THE CHEST CLINICAL HISTORY: Hypoxia. COMPARISON STUDY: Chest x-ray dated 06/29/2021. Chest CT dated 06/23/2021. TECHNIQUE: Following the IV administration of 117 cc of Optiray 320, CT angiogram of the chest was performed from the upper abdomen to the thoracic inlet utilizing the pulmonary embolus protocol. Images are reviewed in the axial, sagittal, and coronal planes. 3-D MIPS images are created and assessed. IV contrast was administered without complication. A dose lowering technique was utilized adhering to the principles of ALARA. The examination is signifi cantly compromised by motion artifact, streak artifact from metallic spinal hardware, and streak artifact from the arms which could not be elevated above the chest. CT DOSE: 1198.73 mGy.cm FINDINGS: Thyroid: Imaged portions of the thyroid gland are normal in size and attenuation. Thoracic aorta: There is atherosclerotic calcification of the thoracic aorta, which is normal in caliber and demonstrates standard 3-vessel arch anatomy. No dissection is seen. Pulmonary vasculature: The pulmonary trunk is normal in caliber. There are no filling defects identified in main, lobar, or segmental pulmonary branches to suggest pulmonary embolus. Heart: The heart is enlarged and without pericardial effusion. Lungs and pleural spaces: And edematous change is noted. There is multifocal patchy airspace consolidation throughout the left lung, greatest in the left apex and at the left lung base. Multifocal airspace consolidation is also seen at the right lung base, with minimal patchy airspace opacities in the right upper lobe. No pleural effusion or pneumothorax is identified. There are numerous calcified granulomas. Esophagus: Esophagus is distended and filled with debris to the level of the thoracic inlet. Mediastinum: Subcentimeter mediastinal lymph nodes are not pathologically enlarged by size criteria. Kassy: There are calcified right hilar lymph nodes. No hilar adenopathy is seen. Axillae: There is no axillary lymphadenopathy. Upper abdomen: Partially visualized upper abdominal viscera is within normal limits. Skeletal structures: The skeletal structures are osteopenic. Fusion hardware is noted at the thoracolumbar junction. Spondylotic change is noted throughout the thoracic spine. Advanced arthritic change is seen in the shoulders. No lytic or blastic bony lesions are seen. IMPRESSION: 1. Streak and motion compromised examination. 2. There is no evidence of pulmonary embolus in the main, lobar, or segmental pulmonary arteries. 3. Cardiomegaly and emphysema. 4. Multifocal airspace consolidation is seen throughout both lungs as detailed above. This has progressed from 06/23/2021 and is consistent with multifocal pneumonia/aspiration pneumonitis. Radiographic follow-up to resolution is recommended. 5. The esophagus is distended and filled with fluid/debris to the level of the thoracic inlet. Note this places the patient at risk for aspiration. 6. Additional findings as above. ACT 112: Negative or not required by law. Electronically signed by: Sridhar Ramos M.D. 06/29/2021 6:34 PM Chest X-Ray 07/01/21 13:22 XR chest 1V portable CLINICAL HISTORY: Confirm NG placement prior to tube feeds COMPARISON STUDY: Chest CT June 29, 2021. KUB June 18, 2021. FINDINGS: There is no pneumothorax. Blunting of the left costophrenic angle is chronic. Bibasilar opacities are again noted. Cardiomediastinal silhouette is stable. Tip of nasogastric tube projects over the gastric cardia. The tube could be advanced an additional 5 cm. IMPRESSION: Tip of nasogastric tube projects over the gastric cardia. The tube could be advanced an additional 5 cm. ACT 112: Negative or not required by law. Electronically signed by: Chriss Naranjo M.D. 07/01/2021 1:56 PM Hospital Course (1) Esophageal dysmotility: - Follows with [facility] in [place]. Has missed several appts for evaluation and possible intervention due to frequent hospitalizations recently for aspiration pneumonia. - On a soft food diet at home. NPO for now, consider NG tube placement. - [facility] consulted for evaluation of multiple admissions for aspiration pneumonia, appreciate their recommendations. - currently this is the main issue. - Due to esophageal achalasia, she is NPO w/ NGT and tube feedings providing nutrition - Placed NG tube on 07/01 and thankfully tolerating NG tube feedings. - [facility] is recommending transfer to tertiary center for POEM, however, [facility] not able to accept pt as they do not have someone to do the procedure. Initially, pt not agreeable to transfer elsewhere, but is now agreeable. [facility] do [facility] there but recommended discussing w/ Dr. Rodriguez @ [facility]. Discussed w/ Dr. Rodriguez and he will perform procedure and has accepted the patient. Ground transport will need to be arranged once pt has a bed. She is otherwise hemodynamically stable for transport. (2) Acute and chronic respiratory failure with hypoxia: - O2 75% in ED on RA with metabolic encephalopathy, placed on oxymask 8L with improved cognition and SpO2. VBG with pCO2 51. Also Albuterol and SoluMedrol 60 in ED. - CXR showed bibasilar and left upper lung predominant airspace opacities are suggestive of multifocal pneumonia, progressed since 06/23/21 within the right lung base. Cardiomegaly with small pleural effusions also noted. CTA showed that the esophagus is distended and filled with fluid/debris to the level of the thoracic inlet. - Patient was started on vancomycin and Zosyn in ED, will switch to Unasyn for aspiration pneumonia coverage. Will d/c vancomycin pending MRSA swab if negative. - Continue home inhalers. - Patient is on 2 liters, and is currently stable (3) Aspiration pneumonia: - Current on abx coverage with Unasyn today day #5 - Supplemental O2 as above - Continued on her home inhalers (4) MATT (acute kidney injury): - BUN 25, Cr 1.36 (baseline 0.8), both improving since previous admission. - Most likely secondary to hypovolemia, pt has frequent emesis with both food and liquids to do esophageal dysmotility. - Holding ACEi, HCTZ. - LRs @ 80cc/hr for 1 L which has since been stopped - Renally dose all medications, hold nephrotoxic agents. (5) Hallucination: - Most likely in the setting of hypoxia due to aspiration pneumonia, has resolved with supplemental O2. CT head without acute findings. - No recurrence at this time (6) Hypomagnesemia: - 1.6 in ED, repleted with 2 g mag sulfate and resolved (7) HTN (hypertension), benign: - Continue holding lisinopril and HCTZ in setting of MATT. - Diltiazem can be resumed but will have to transition to short acting in the equivalent dose (8) Diabetes mellitus type 2 in obese: - BGM 184 in ED. On metformin at home, will hold this. - Will start on sliding scale insulin for now, can consider long acting insulin if sugars are consistently elevated. - Accuchecks AC and HS (9) Vitamin B12 deficiency: - Hold B12 for now while NPO (10) GERD (gastroesophageal reflux disease): - Continue pepcid and prevacid (11) Hyperlipidemia: - hold while NPO (12) Depression: - hold cymbalta as this med cannot be opened and put in NGT and pt is NPO (13) Restless leg syndrome: - restarted Pramipexole (14) Sepsis: POA d/t aspiration pna -- RESOLVED Transfer to [facility] under care of Dr. Rodriguez for POEM procedure d/t type II esophageal achalasia w/ recurrent aspiration pneumonia. Case d/w Dr. Arellano who is in agreement with the aforementioned. Total Time Total Time Spent Total Time Spent (In Minutes): >30 minutes Discharge Plan Discharge Items Patient Disposition: Transfer Acute Care Hospital Reason For Visit: ASPIRATION PNEUMONIA Discharge Diagnosis: Aspiration pneumonia Type II Achalasia Activity: As commented below Activity Comment: As tolerated Non-emergency contact: Primary Care Provider and Electrical Engineering Manager Call non-emergency contact if: you have any medication questions and your symptoms worsen Follow-up/Referrals: Manny Bland, DO [Primary Care Provider] - Diet: Nothing by Mouth Addtl Attending Provider Instructions: You are being transferred to [facility] under care of Dr. Florencio Rodriguez for recommended per oral endoscopic myomotomy. Pending Studies at Discharge: No Stand-Alone Forms: My [facility] Skilled Items Patient informed of condition?: Yes DNR: No Discharge Level of Care: Other Communicable Disease: No Discharge Prognosis: Stable Lines: Peripheral IV Urinary Catheter: No Medications and DC Order Prescriptions: Continued ondansetron HCl [Zofran] 4 mg tablet 4 mg PO Q6H Qty: 30 RF: 2 pramipexole [Mirapex] 1 mg tablet 1 mg PO HS RF: 0 metformin 500 mg tablet 1,000 mg PO BID RF: 0 gabapentin 600 mg tablet 600 mg PO TID RF: 0 pravastatin 40 mg tablet 40 mg PO QAM RF: 0 diltiazem HCl 180 mg capsule,extended release 24hr 180 mg PO QAM RF: 0 sucralfate [Carafate] 1 gram tablet 1 g PO ACHS PRN (Reason: Indigestion) RF: 0 cyanocobalamin (vitamin B-12) [Vitamin B-12] 1,000 mcg Tablet 1,000 mcg PO QAM RF: 0 fenofibrate micronized 134 mg capsule 134 mg PO QPM RF: 0 lisinopril 40 mg tablet 40 mg PO QAM RF: 0 duloxetine [Cymbalta] 30 mg capsule,delayed release(DR/EC) 30 mg PO QAM RF: 0 duloxetine 60 mg capsule,delayed release(DR/EC) 60 mg PO QAM RF: 0 cholecalciferol (vitamin D3) [Vitamin D3] 25 mcg (1,000 unit) Tablet 25 mcg PO QAM RF: 0 famotidine 20 mg tablet 20 mg PO BID Qty: 14 RF: 0 diclofenac sodium 1 % gel 2 g TOPICAL QID PRN (Reason: Pain) RF: 0 oxycodone-acetaminophen 5-325 mg Tablet 1 tab PO Q6H PRN (Reason: Pain) RF: 0 tramadol 50 mg tablet 50 mg PO Q6H PRN (Reason: pain, moderate) Qty: 30 RF: 0 oxycodone 5 mg tablet 5 mg PO Q6H PRN (Reason: pain, severe) Qty: 30 RF: 0 pantoprazole 40 mg tablet,delayed release (DR/EC) 40 mg PO BID RF: 0 fluticasone furoate 100 mcg/actuation blister with device 2 inh inhalation DAILY 30 Days Qty: 30 RF: 0 albuterol sulfate 90 mcg/actuation HFA aerosol inhaler 2 puff INHALATION Q3H PRN (Reason: Shortness Of Breath) RF: 0 Anoro Ellipta 62.5-25 mcg/actuation blister with device 62.5 inh INHALATION QAM RF: 0 acetaminophen 325 mg Tablet 650 mg PO Q4H PRN (Reason: fever or pain) Qty: 30 RF: 0 Discontinued hydrochlorothiazide 25 mg tablet 25 mg PO QAM RF: 0 Admission Data Admit Date/Time: 06/29/21 20:12 Attending Provider: Patel Arellano Admit Provider: Garcia Blevins Primary Care Provider: Manny Bland Other Providers: Garcia Blevins ; Diann Mehta ; Jsoe Marie ; Earl Sands ; Scott Jones ; Tiago Yi ; Sridhar Crespo Other Interventions: Discharge Summary Assessment (RN) Last Done: 07/03/21 22:23 Supervising Physician Co-Signing Physician Notes Case discussed with MAGNOLIA Loving. Patient seen at bedside prior to discharge. Multiple aspiration events and admissions for pneumonia, with esophageal achalasia, NG placed, was accepted for transfer to [facility] for POEM. Breathing stable, no shortness of breath, fever, chills, chest pain at time of bedside visit prior to transfer. Coding Level of Care Code D/C DAY MANAGEMENT >30 MINS Diagnoses Esophageal dysmotility K22.4 Acute and chronic respiratory failure with hypoxia J96.21 MATT (acute kidney injury) N17.9 Hallucination R44.3 Hypomagnesemia E83.42 HTN (hypertension), benign I10 Diabetes mellitus type 2 in obese E11.69; E66.9 Vitamin B12 deficiency E53.8 GERD (gastroesophageal reflux disease) K21.9 Hyperlipidemia E78.5 Depression F32.9 Restless leg syndrome G25.81 Sepsis A41.9 Aspiration pneumonia J69.0 Aspiration pneumonia type: unspecified
[2021-07-03] MEDS: PEPTAMEN 1.5 CAL 1,000 ML BAG NG SCH (16:46)
--- NOTE | 2021-07-03 20:20 | XRay Report ---
KUB CLINICAL HISTORY: Abdominal distention. FINDINGS: 2 AP supine abdominal radiographs are compared to study dated 06/18/2021 and correlated with abdominal CT dated 11/16/2020. An enteric tube projects below the diaphragm over the mid stomach. There is a nonobstructed abdominal bowel gas pattern. No evidence of intraperitoneal free air is seen on t hese supine images. The skeletal structures are osteopenic. Extensive postoperative change is noted i n the lumbar spine. IMPRESSION: 1. An enteric tube is in place as above. 2. There is no radiographic evidence of bowel obstruction. Electronically signed by: Sridhar Ramos M.D. 07/03/2021 8:18 PM
[2021-07-03] MEDS ORDERED: TUBE FEEDING WATER FLUSH NG SCH (21:00)
[2021-07-04] MEDS ORDERED: CHOLECALCIFEROL 1,000 UNITS 25 MCG TAB NG SCH (09:00)
[2021-07-04] MEDS ORDERED: CYANOCOBALAMIN (B-12) 500 MCG TABLET NG SCH (09:00)
[2021-07-04] MEDS ORDERED: dilTIAZem HCl 60 MG TAB PO SCH (09:00)
== END 2021-07-03 23:22 | disposition short-term general hospital (02) | DRG 871 ==
LOC: ED 15:55 → SUATTDRO 20:12 → 3W 20:12 → 2W 23:33

== ENCOUNTER 2022-09-09 12:42 | Inpatient (IN) ==
[2022-09-09] MEDS ORDERED: CEFEPIME 2,000 MG/20 ML VIAL IV STA (12:52)
[2022-09-09] MEDS ORDERED: SODIUM CHLORIDE 0.9% 1000ML 1,000 ML IV SCH (13:00)
[2022-09-09] MEDS ORDERED: SODIUM CHLORIDE 0.9% 1000ML 500 ML IV SCH (13:00)
--- NOTE | 2022-09-09 13:09 | Emergency Department Note ---
Impression & Plan Hypoxia, Pneumonia ED Provider Note INFORMANT: Patient and daughter ED PROVIDER(S): Tony Gavin DO CHIEF COMPLAINT: Hypoxia, hallucinations, trouble breathing PLAN: Disposition: Admission Outpatient prescription management: none Discussion with: I spoke with the hospitalist, who will see the patient for admission/observation and further evaluation and consultation. MEDICAL DECISION MAKING: This is a 77-year-old female who presents to the ED with a chief complaint of decreased oxygen saturations at home as well as a cough. The patient, per the daughter has a history of aspiration. She states that she has been hallucinating today. She told her daughter that there was a blond haired male in her backseat which was not present. The patient's oxygen saturation at home was in the 80s. She is 84% here on room air. She does not use home oxygen. The patient, Per the daughter has started smoking again. She did quit for 7 months. The patient reports that her breathing seems to be worse with exertion. Vital signs show that she is afebrile. Saturations 84% on room air. Blood pressure is okay. Exam reveals crackles in the bilateral lungs with more the right. No wheezing. No appearance of respiratory distress. A chest x-ray shows bilateral pneumonia right greater than left. EKG shows normal sinus rhythm. Lactic acid is 2.8. White blood cell count is elevated 12.99. Troponin was negative for myocardial infarction. The patient was told the results. She was empirically treated with IV cefepime. She was also given some IV fluids 1.5 L. She will be seen by the hospitalist for further evaluation and care. Triage Nursing notes reviewed. Vital Signs: reviewed Prior /Outside records reviewed: [none] Differential diagnosis: The differential was considered includes acute myocardial infarction, acute coronary syndrome, myocarditis, pericarditis, pericardial effusions /tamponad, esophageal perforation, pulmonary embolism, pneumonia, pneumothorax, cardiomyopathy, congestive heart, anemia , COPD/asthma exacerbation. Diagnostics, as interpreted by me: 12 lead ECG: Normal sinus rhythm rate of 89. No ST elevation. No PVCs. Normal QTc. Cardiac Monitoring ordered: Sinus rhythm in the 80s. Medical decision rules: [none] Imaging studies: Chest x-ray: Bilateral pneumonia Procedures: none. Critical care: none. HPI: See MDM above. PAST MEDICAL HISTORY: See Below PAST SURGICAL HISTORY: See Below SOCIAL HISTORY: See Below HOME MEDICATIONS:See Below ALLERGIES: See Below VITALS: See Below PHYSICAL EXAMINATION: See MDM for positive findings otherwise unremarkable. CONSTITUTIONAL/VITAL SIGNS: Reviewed GENERAL:done as appropriate INTEGUMENTARY: done as appropriate HEAD: done as appropriate EYES: done as appropriate RESPIRATORY: done as appropriate CARDIOVASCULAR:done as appropriate GI/ABDOMEN:done as appropriate EXTREMITIES: done as appropriate NEUROLOGICAL: done as appropriate PSYCHIATRIC:done as appropriate MUSCULOSKELETAL:done as appropriate TRIAGE NURSING DOCUMENTATION REVIEWED. 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 Dysphagia Encounter for pre-operative examination Esophageal dysmotility GERD (gastroesophageal reflux disease) History of esophageal dilatation HTN (hypertension), benign Hyperlipidemia Nausea & vomiting anytime eats or drinks, per pt and granddaughter was thought to be d/t mucus from smoking as does not happen when not smoking during hospitalizations Obesity Peptic ulcer disease (~2017) bleeding ulcer Peripheral neuropathy Restless leg syndrome Schatzki's ring Sleep apnea unable to tolerate cpap Weight loss, unintentional Surgical History History of bilateral tubal ligation History of carpal tunnel release Left History of cataract surgery bilateral History of colonoscopy History of esophagogastroduodenoscopy (EGD) History of lumbar fusion History of repair of rotator cuff Right S/P epidural steroid injection Family History Father Heart disease Brother Kidney disease Mother Gastric cancer Family/Other Testicular cancer Other No family history of adverse response to anesthesia Social History Smoking Status: Current every day smoker Tobacco Type: Cigarettes Age Started Using Tobacco: 11; Cigarettes Per Day: 20; Second Hand Exposure: No; Do You Dip or Chew Tobacco: No; Hx Alcohol Use: No Hx Substance Use: No Preferred Language: Romanian Communication Ability: Effective [employer] Store [employer]er Required: No Beliefs That Will Affect Care: None marital status: / Current Living Situation: Family Current Living Situation Comment: home with son Feels Safe at Home: Yes Assistive Devices: Walker Allergies Allergies Allergy/AdvReac Type Severity Reaction Status Date / Time atorvastatin [From Lipitor] Allergy Intermediate Skin Rash Verified 07/31/21 19:26 morphine AdvReac Intermediate Nausea Verified 07/31/21 19:26 Home Meds Home Medications Medication Instructions Recorded Confirmed cholecalciferol (vitamin D3) 25 25 mcg PO QAM 05/03/20 07/31/21 mcg (1,000 unit) tablet (Vitamin D3) cyanocobalamin (vitamin B-12) 1,000 mcg PO QAM 05/03/20 07/31/21 1,000 mcg tablet (Vitamin B-12) diltiazem HCl 180 mg 180 mg PO QAM 05/03/20 07/31/21 capsule,extended release 24 hr duloxetine 30 mg capsule,delayed 30 mg PO QAM 05/03/20 07/31/21 release (Cymbalta) duloxetine 60 mg capsule,delayed 60 mg PO QAM 05/03/20 07/31/21 release fenofibrate micronized 134 mg 134 mg PO QPM 05/03/20 07/31/21 capsule gabapentin 600 mg tablet 600 mg PO TID 05/03/20 07/31/21 lisinopril 40 mg tablet 40 mg PO QAM 05/03/20 07/31/21 metformin 500 mg tablet 1,000 mg PO BID 05/03/20 07/31/21 pramipexole 1 mg tablet (Mirapex) 1 mg PO HS 05/03/20 07/31/21 pravastatin 40 mg tablet 40 mg PO QAM 05/03/20 07/31/21 sucralfate 1 gram tablet (Carafate) 1 g PO ACHS PRN Indigestion 05/03/20 07/31/21 albuterol sulfate 90 mcg/actuation 2 puff inhalation Q3H PRN 11/08/20 07/31/21 aerosol inhaler Shortness Of Breath umeclidinium 62.5 mcg-vilanterol 1 inh inhalation QAM 11/08/20 01/30/22 25 mcg/actuation powdr for inhalation (Anoro Ellipta) diclofenac sodium 1 % topical gel 2 g topical QID PRN Pain 11/16/20 07/31/21 oxycodone-acetaminophen 5 mg-325 1 tab PO Q6H PRN Pain 05/22/21 07/31/21 mg tablet pantoprazole 40 mg tablet,delayed 40 mg PO BID 06/22/21 07/31/21 release ondansetron HCl 4 mg tablet 4 mg PO Q6H PRN NAUSEA/VOMITING 07/31/21 07/31/21 Previous Rx's Medication Instructions Recorded famotidine 20 mg tablet 20 mg PO BID #14 tabs 05/06/20 acetaminophen 325 mg tablet 650 mg PO Q4H PRN fever or pain 11/10/20 #30 tabs oxycodone 5 mg tablet 5 mg PO Q6H PRN pain, severe #30 06/15/21 tabs tramadol 50 mg tablet 50 mg PO Q6H PRN pain, moderate 06/15/21 #30 tabs Results & Data (ED) Vital Signs Vital Signs - 24 hr 09/09/22 12:45 09/09/22 13:02 09/09/22 12:53 Temperature 36.8 C Temperature Source Temporal Artery Scan Pulse Rate 95 H 90 Pulse Rate from SpO2 Sensor Respiratory Rate 22 Respiratory Effort / Characteristics Non-Labored Spontaneous Respiratory Depth Normal Respiratory Pattern Regular Blood Pressure 107/69 Blood Pressure Mean 81 Pulse Oximetry 84 L 94 Oxygen Delivery Method Room Air Nasal Cannula Oxygen Flow Rate 4 Sepsis Recent Fever Within 48 Hours No Sepsis New/Unexplained Change in Mental Status No Sepsis Action Taken by Nursing No Action Required 09/09/22 13:01 09/09/22 13:30 09/09/22 13:31 Temperature Temperature Source Pulse Rate 90 87 Pulse Rate from SpO2 Sensor 90 81 Respiratory Rate 22 18 Respiratory Effort / Characteristics Respiratory Depth Respiratory Pattern Blood Pressure 122/61 Blood Pressure Mean 87 Pulse Oximetry 93 94 Oxygen Delivery Method Oxygen Flow Rate Sepsis Recent Fever Within 48 Hours Sepsis New/Unexplained Change in Mental Status Sepsis Action Taken by Nursing 09/09/22 13:31 09/09/22 13:32 09/09/22 13:32 Temperature Temperature Source Pulse Rate 85 70 Pulse Rate from SpO2 Sensor 81 75 Respiratory Rate 19 21 Respiratory Effort / Characteristics Respiratory Depth Respiratory Pattern Blood Pressure 125/53 L Blood Pressure Mean 95 Pulse Oximetry 94 93 Oxygen Delivery Method Oxygen Flow Rate Sepsis Recent Fever Within 48 Hours Sepsis New/Unexplained Change in Mental Status Sepsis Action Taken by Nursing 09/09/22 13:33 09/09/22 13:33 09/09/22 13:34 Temperature Temperature Source Pulse Rate 84 84 Pulse Rate from SpO2 Sensor 84 84 Respiratory Rate 23 22 Respiratory Effort / Characteristics Respiratory Depth Respiratory Pattern Blood Pressure 120/72 Blood Pressure Mean 80 Pulse Oximetry 94 93 Oxygen Delivery Method Oxygen Flow Rate Sepsis Recent Fever Within 48 Hours Sepsis New/Unexplained Change in Mental Status Sepsis Action Taken by Nursing 09/09/22 13:34 09/09/22 13:35 09/09/22 13:35 Temperature Temperature Source Pulse Rate 83 Pulse Rate from SpO2 Sensor 83 Respiratory Rate 22 Respiratory Effort / Characteristics Respiratory Depth Respiratory Pattern Blood Pressure 120/68 114/69 Blood Pressure Mean 82 78 Pulse Oximetry 94 Oxygen Delivery Method Oxygen Flow Rate Sepsis Recent Fever Within 48 Hours Sepsis New/Unexplained Change in Mental Status Sepsis Action Taken by Nursing 09/09/22 13:36 09/09/22 13:36 09/09/22 13:41 Temperature Temperature Source Pulse Rate 83 Pulse Rate from SpO2 Sensor 83 Respiratory Rate 23 Respiratory Effort / Characteristics Respiratory Depth Respiratory Pattern Blood Pressure 124/67 152/126 H Blood Pressure Mean 90 142 Pulse Oximetry 94 Oxygen Delivery Method Oxygen Flow Rate Sepsis Recent Fever Within 48 Hours Sepsis New/Unexplained Change in Mental Status Sepsis Action Taken by Nursing 09/09/22 13:41 09/09/22 13:45 09/09/22 13:45 Temperature Temperature Source Pulse Rate 84 83 Pulse Rate from SpO2 Sensor 84 83 Respiratory Rate 22 18 Respiratory Effort / Characteristics Respiratory Depth Respiratory Pattern Blood Pressure 126/71 Blood Pressure Mean 79 Pulse Oximetry 94 93 Oxygen Delivery Method Oxygen Flow Rate Sepsis Recent Fever Within 48 Hours Sepsis New/Unexplained Change in Mental Status Sepsis Action Taken by Nursing 09/09/22 13:50 09/09/22 13:50 09/09/22 13:55 Temperature Temperature Source Pulse Rate 73 70 Pulse Rate from SpO2 Sensor 79 73 Respiratory Rate 24 22 Respiratory Effort / Characteristics Respiratory Depth Respiratory Pattern Blood Pressure 128/74 Blood Pressure Mean 93 Pulse Oximetry 93 94 Oxygen Delivery Method Oxygen Flow Rate Sepsis Recent Fever Within 48 Hours Sepsis New/Unexplained Change in Mental Status Sepsis Action Taken by Nursing 09/09/22 13:55 09/09/22 14:00 09/09/22 14:00 Temperature Temperature Source Pulse Rate 78 Pulse Rate from SpO2 Sensor 80 Respiratory Rate 18 Respiratory Effort / Characteristics Respiratory Depth Respiratory Pattern Blood Pressure 111/73 130/67 Blood Pressure Mean 96 94 Pulse Oximetry 93 Oxygen Delivery Method Oxygen Flow Rate Sepsis Recent Fever Within 48 Hours Sepsis New/Unexplained Change in Mental Status Sepsis Action Taken by Nursing 09/09/22 14:05 09/09/22 14:05 09/09/22 14:10 Temperature Temperature Source Pulse Rate 79 Pulse Rate from SpO2 Sensor 84 Respiratory Rate 24 Respiratory Effort / Characteristics Respiratory Depth Respiratory Pattern Blood Pressure 132/71 119/76 Blood Pressure Mean 80 88 Pulse Oximetry 92 Oxygen Delivery Method Oxygen Flow Rate Sepsis Recent Fever Within 48 Hours Sepsis New/Unexplained Change in Mental Status Sepsis Action Taken by Nursing 09/09/22 14:10 09/09/22 14:15 09/09/22 14:15 Temperature Temperature Source Pulse Rate 81 77 Pulse Rate from SpO2 Sensor 83 80 Respiratory Rate 21 14 Respiratory Effort / Characteristics Respiratory Depth Respiratory Pattern Blood Pressure 135/73 Blood Pressure Mean 104 Pulse Oximetry 93 92 Oxygen Delivery Method Oxygen Flow Rate Sepsis Recent Fever Within 48 Hours Sepsis New/Unexplained Change in Mental Status Sepsis Action Taken by Nursing 09/09/22 14:20 09/09/22 14:20 09/09/22 14:25 Temperature Temperature Source Pulse Rate 81 Pulse Rate from SpO2 Sensor 85 Respiratory Rate 23 Respiratory Effort / Characteristics Respiratory Depth Respiratory Pattern Blood Pressure 118/74 127/74 Blood Pressure Mean 83 90 Pulse Oximetry 94 Oxygen Delivery Method Oxygen Flow Rate Sepsis Recent Fever Within 48 Hours Sepsis New/Unexplained Change in Mental Status Sepsis Action Taken by Nursing 09/09/22 14:25 09/09/22 14:30 09/09/22 14:30 Temperature Temperature Source Pulse Rate 75 80 Pulse Rate from SpO2 Sensor 80 84 Respiratory Rate 22 24 Respiratory Effort / Characteristics Respiratory Depth Respiratory Pattern Blood Pressure 126/96 Blood Pressure Mean 107 Pulse Oximetry 94 94 Oxygen Delivery Method Oxygen Flow Rate Sepsis Recent Fever Within 48 Hours Sepsis New/Unexplained Change in Mental Status Sepsis Action Taken by Nursing 09/09/22 17:10 Temperature Temperature Source Pulse Rate 87 Pulse Rate from SpO2 Sensor Respiratory Rate Respiratory Effort / Characteristics Respiratory Depth Respiratory Pattern Blood Pressure Blood Pressure Mean Pulse Oximetry Oxygen Delivery Method Oxygen Flow Rate Sepsis Recent Fever Within 48 Hours Sepsis New/Unexplained Change in Mental Status Sepsis Action Taken by Nursing Laboratory Data 09/09/22 13:06 09/09/22 13:06 Lab Results 09/09/22 09/09/22 09/09/22 Range/Units 13:06 13:06 13:06 WBC 12.99 H (4.8-10.8) K/ul RBC 4.90 (4.20-5.40) M/uL Hgb 14.0 (12.0-16.0) g/dl Hct 43.7 (37.0-47.0) % MCV 89.2 (80.0-100.0) fL MCH 28.6 (25.0-34.0) pg MCHC 32.0 (32.0-36.0) g/dL RDW Std Deviation 46.0 (36.4-46.3) fL RDW Coeff of [place] 14.2 (11.5-14.5) % Plt Count 249 (130-400) K/uL MPV 10.3 (9.4-12.4) fL Immature Gran % (Auto) 0.6 % Neut % (Auto) 88.6 % Lymph % (Auto) 3.5 % [place] % (Auto) 6.6 % Eos % (Auto) 0.3 % Baso % (Auto) 0.4 % Neut # (Auto) 11.51 H (1.40-6.50) K/uL Lymph # (Auto) 0.45 L (1.2-3.4) K/uL [place] # (Auto) 0.86 H (0.11-0.59) K/uL Eos # (Auto) 0.04 (0-0.50) K/uL Baso # (Auto) 0.05 (0-0.2) K/uL Immature Gran # (Auto) 0.08 (0.01-0.20) K/uL VBG pH (7.36-7.41) VBG pCO2 (38-50) mmHg VBG pO2 mmHg VBG HCO3 mmol/L VBG O2 Saturation % VBG Base Excess mEq/L Sodium 138 (136-145) mmol/L Potassium 3.9 (3.5-5.1) mmol/L Chloride 101 (98-107) mmol/L Carbon Dioxide 28 (21-32) mmol/L Anion Gap 9 (3-11) BUN 18 (6-23) mg/dl Creatinine 0.94 (0.6-1.2) mg/dl Est Cr Clr Drug Dosing Not Reportable Est GFR ( Amer) 67.3 ml/min Est GFR (Non-Af Amer) 58.1 ml/min BUN/Creatinine Ratio 19.1 (10-20) Glucose 159 H (70-99(Fasting)) mg/dl Lactate 2.8 H* (0.4-2.0) mmol/L Calcium 8.7 (8.6-10.3) mg/dl Magnesium 1.5 L (1.7-2.4) mg/dl Total Bilirubin 0.4 (0.2-1.0) mg/dl Direct Bilirubin 0.0 (0-0.2) mg/dl AST 13 (13-39) U/L ALT 12 (7-52) U/L Alkaline Phosphatase 83 (34-104) U/L Troponin I High Sens 8.1 (0-14) pg/ml Total Protein 6.6 (6.0-8.3) gm/dl Albumin 3.6 (3.4-5.0) gm/dl Procalcitonin (0-0.5) ng/ml Urine Color Urine Appearance (Clear) Urine pH (4.5-7.5) Ur Specific [place] (1.000-1.030) Urine Protein (Negative) Urine Glucose (UA) (Negative) Urine Ketones (Negative) Urine Blood (Negative) Urine Nitrite (Negative) Urine Bilirubin (Negative) Urine Urobilinogen (Negative) Ur Leukocyte Esterase (Negative) Urine WBC (Auto) (0-5) /hpf Urine RBC (Auto) (0-4) /hpf U Hyaline Cast (Auto) (0-5) /lpf U Epithel Cells (Auto) (0-5) /lpf Urine Bacteria (Auto) (Negative) SARS-CoV-2, RNA, NAAT (NEGATIVE) 09/09/22 09/09/22 09/09/22 Range/Units 13:06 14:55 15:06 WBC (4.8-10.8) K/ul RBC (4.20-5.40) M/uL Hgb (12.0-16.0) g/dl Hct (37.0-47.0) % MCV (80.0-100.0) fL MCH (25.0-34.0) pg MCHC (32.0-36.0) g/dL RDW Std Deviation (36.4-46.3) fL RDW Coeff of [place] (11.5-14.5) % Plt Count (130-400) K/uL MPV (9.4-12.4) fL Immature Gran % (Auto) % Neut % (Auto) % Lymph % (Auto) % [place] % (Auto) % Eos % (Auto) % Baso % (Auto) % Neut # (Auto) (1.40-6.50) K/uL Lymph # (Auto) (1.2-3.4) K/uL [place] # (Auto) (0.11-0.59) K/uL Eos # (Auto) (0-0.50) K/uL Baso # (Auto) (0-0.2) K/uL Immature Gran # (Auto) (0.01-0.20) K/uL VBG pH 7.35 L (7.36-7.41) VBG pCO2 56 H (38-50) mmHg VBG pO2 44 mmHg VBG HCO3 31 mmol/L VBG O2 Saturation 76.9 % VBG Base Excess 3.8 mEq/L Sodium (136-145) mmol/L Potassium (3.5-5.1) mmol/L Chloride (98-107) mmol/L Carbon Dioxide (21-32) mmol/L Anion Gap (3-11) BUN (6-23) mg/dl Creatinine (0.6-1.2) mg/dl Est Cr Clr Drug Dosing Est GFR ( Amer) ml/min Est GFR (Non-Af Amer) ml/min BUN/Creatinine Ratio (10-20) Glucose (70-99(Fasting)) mg/dl Lactate 2.5 H* (0.4-2.0) mmol/L Calcium (8.6-10.3) mg/dl Magnesium (1.7-2.4) mg/dl Total Bilirubin (0.2-1.0) mg/dl Direct Bilirubin (0-0.2) mg/dl AST (13-39) U/L ALT (7-52) U/L Alkaline Phosphatase (34-104) U/L Troponin I High Sens (0-14) pg/ml Total Protein (6.0-8.3) gm/dl Albumin (3.4-5.0) gm/dl Procalcitonin 0.39 (0-0.5) ng/ml Urine Color Urine Appearance (Clear) Urine pH (4.5-7.5) Ur Specific [place] (1.000-1.030) Urine Protein (Negative) Urine Glucose (UA) (Negative) Urine Ketones (Negative) Urine Blood (Negative) Urine Nitrite (Negative) Urine Bilirubin (Negative) Urine Urobilinogen (Negative) Ur Leukocyte Esterase (Negative) Urine WBC (Auto) (0-5) /hpf Urine RBC (Auto) (0-4) /hpf U Hyaline Cast (Auto) (0-5) /lpf U Epithel Cells (Auto) (0-5) /lpf Urine Bacteria (Auto) (Negative) SARS-CoV-2, RNA, NAAT (NEGATIVE) 09/09/22 09/09/22 09/09/22 Range/Units 15:58 16:05 16:24 WBC (4.8-10.8) K/ul RBC (4.20-5.40) M/uL Hgb (12.0-16.0) g/dl Hct (37.0-47.0) % MCV (80.0-100.0) fL MCH (25.0-34.0) pg MCHC (32.0-36.0) g/dL RDW Std Deviation (36.4-46.3) fL RDW Coeff of [place] (11.5-14.5) % Plt Count (130-400) K/uL MPV (9.4-12.4) fL Immature Gran % (Auto) % Neut % (Auto) % Lymph % (Auto) % [place] % (Auto) % Eos % (Auto) % Baso % (Auto) % Neut # (Auto) (1.40-6.50) K/uL Lymph # (Auto) (1.2-3.4) K/uL [place] # (Auto) (0.11-0.59) K/uL Eos # (Auto) (0-0.50) K/uL Baso # (Auto) (0-0.2) K/uL Immature Gran # (Auto) (0.01-0.20) K/uL VBG pH (7.36-7.41) VBG pCO2 (38-50) mmHg VBG pO2 mmHg VBG HCO3 mmol/L VBG O2 Saturation % VBG Base Excess mEq/L Sodium (136-145) mmol/L Potassium (3.5-5.1) mmol/L Chloride (98-107) mmol/L Carbon Dioxide (21-32) mmol/L Anion Gap (3-11) BUN (6-23) mg/dl Creatinine (0.6-1.2) mg/dl Est Cr Clr Drug Dosing Est GFR ( Amer) ml/min Est GFR (Non-Af Amer) ml/min BUN/Creatinine Ratio (10-20) Glucose (70-99(Fasting)) mg/dl Lactate 3.0 H* (0.4-2.0) mmol/L Calcium (8.6-10.3) mg/dl Magnesium (1.7-2.4) mg/dl Total Bilirubin (0.2-1.0) mg/dl Direct Bilirubin (0-0.2) mg/dl AST (13-39) U/L ALT (7-52) U/L Alkaline Phosphatase (34-104) U/L Troponin I High Sens (0-14) pg/ml Total Protein (6.0-8.3) gm/dl Albumin (3.4-5.0) gm/dl Procalcitonin (0-0.5) ng/ml Urine Color Yellow Urine Appearance Clear (Clear) Urine pH 5.0 (4.5-7.5) Ur Specific [place] 1.021 (1.000-1.030) Urine Protein 2+ H (Negative) Urine Glucose (UA) Negative (Negative) Urine Ketones Negative (Negative) Urine Blood Negative (Negative) Urine Nitrite Negative (Negative) Urine Bilirubin Negative (Negative) Urine Urobilinogen Negative (Negative) Ur Leukocyte Esterase Negative (Negative) Urine WBC (Auto) 1-5 (0-5) /hpf Urine RBC (Auto) 0-4 (0-4) /hpf U Hyaline Cast (Auto) 0 (0-5) /lpf U Epithel Cells (Auto) 20-30 H (0-5) /lpf Urine Bacteria (Auto) Negative (Negative) SARS-CoV-2, RNA, NAAT NEGATIVE (NEGATIVE) Administered Medications Acetaminophen (Acetaminophen 325 Mg Tab) 650 mg PO Q4H PRN PRN Reason: pain/fever Stop: 10/09/22 15:50 Last Admin: 09/09/22 16:15 Dose: 650 mg Documented By: ARS Magnesium Sulfate/Dextrose (Magnesium Sulfate / D5w) 1 gm in 100 mls @ 50 mls/hr IV Q2H [facility] Stop: 09/09/22 19:14 Last Admin: 09/09/22 16:15 Dose: 50 mls/hr Documented By: WILMA Discontinued Medications Cefepime HCl (Maxipime) 2,000 mg in 20 mls @ 5 mls/min IV NOW STA; Protocol Stop: 09/09/22 12:55 Last Admin: 09/09/22 13:39 Dose: 5 mls/min Documented By: WILMA Sodium Chloride (Nss 1000ml) 1,000 mls @ 999 mls/hr IV .Q1H1M [facility] Stop: 09/09/22 14:00 Last Admin: 09/09/22 13:24 Dose: 999 mls/hr Documented By: WILMA Sodium Chloride (Nss 1000ml) 500 mls @ 999 mls/hr IV .Q31M [facility] Stop: 09/09/22 13:30 Last Admin: 09/09/22 13:24 Dose: 999 mls/hr Documented By: WILMA Imaging Data Radiologist's Impression: Chest X-Ray 09/09/22 12:53 XR chest 1V portable CLINICAL HISTORY: Sepsis TECHNIQUE: Single frontal radiograph of the chest was obtained. Comparison: Comparison is made to rib series 07/01/2021 FINDINGS: No lines and tubes are seen. Cardiomegaly is noted. The aortic arch is calcified. Prominence and cephalization of the vasculature is seen. Bilateral airspace opacities are seen. There is a small left pleural effusion. IMPRESSION: 1. Cardiomegaly and mild pulmonary edema. 2. Bilateral airspace opacities are new from prior exam and may represent aspiration, pneumonia, and/or pulmonary edema. ACT 112: Negative or not required by law. Electronically signed by: Junito Baxter M.D. 09/09/2022 1:33 PM Discharge Plan Visit Data Chief Complaint: Illness Stated Complaint: BP UP,FEVER AND LOW OXYGEN,HALLUCINATIONS ED Provider: Tony Gavin Discharge Problem: Hypoxia, Pneumonia Patient Disposition: Being Evaluated by Hospitalist Forms Stand Alone Forms: [facility] Prescriptions Prescriptions: No Action pramipexole [Mirapex] 1 mg tablet 1 mg PO HS Rx Instructions: NEED TO CRUSH OR DISSOLVE MEDS TO SWALLOW. metformin 500 mg tablet 1,000 mg PO BID Rx Instructions: CAN NOT BE CRUSHED, ON HOLD TILL ABLE TO SWALLOW. gabapentin 600 mg tablet 600 mg PO TID Rx Instructions: NEED TO CRUSH OR DISSOLVE MEDS TO SWALLOW. pravastatin 40 mg tablet 40 mg PO QAM Rx Instructions: NEED TO CRUSH OR DISSOLVE MEDS TO SWALLOW. diltiazem HCl 180 mg capsule,extended release 24hr 180 mg PO QAM Rx Instructions: NEED TO CRUSH OR DISSOLVE MEDS TO SWALLOW. sucralfate [Carafate] 1 gram tablet 1 g PO ACHS PRN (Reason: Indigestion) Rx Instructions: NEED TO CRUSH OR DISSOLVE MEDS TO SWALLOW. cyanocobalamin (vitamin B-12) [Vitamin B-12] 1,000 mcg Tablet 1,000 mcg PO QAM Rx Instructions: NEED TO CRUSH OR DISSOLVE MEDS TO SWALLOW. fenofibrate micronized 134 mg capsule 134 mg PO QPM Rx Instructions: NEED TO CRUSH OR DISSOLVE MEDS TO SWALLOW. lisinopril 40 mg tablet 40 mg PO QAM Rx Instructions: NEED TO CRUSH OR DISSOLVE MEDS TO SWALLOW. duloxetine [Cymbalta] 30 mg capsule,delayed release(DR/EC) 30 mg PO QAM Rx Instructions: TOTAL DOSE 90 MG--TAKES WITH 60 MG CAP. NEED TO CRUSH OR DISSOLVE MEDS TO SWALLOW. duloxetine 60 mg capsule,delayed release(DR/EC) 60 mg PO QAM Rx Instructions: TOTAL DOSE 90 MG--TAKES WITH 30 MG CAP. NEED TO CRUSH OR DISSOLVE MEDS TO SWALLOW. cholecalciferol (vitamin D3) [Vitamin D3] 25 mcg (1,000 unit) Tablet 25 mcg PO QAM Rx Instructions: NEED TO CRUSH OR DISSOLVE MEDS TO SWALLOW. famotidine 20 mg tablet 20 mg PO BID Qty: 14 0RF Rx Instructions: NEED TO CRUSH OR DISSOLVE MEDS TO SWALLOW. diclofenac sodium 1 % gel 2 g TOPICAL QID PRN (Reason: Pain) oxycodone-acetaminophen 5-325 mg Tablet 1 tab PO Q6H PRN (Reason: Pain) Rx Instructions: NEED TO CRUSH OR DISSOLVE MEDS TO SWALLOW. tramadol 50 mg tablet 50 mg PO Q6H PRN (Reason: pain, moderate) Qty: 30 0RF Rx Instructions: NEED TO CRUSH OR DISSOLVE MEDS TO SWALLOW. oxycodone 5 mg tablet 5 mg PO Q6H PRN (Reason: pain, severe) Qty: 30 0RF Rx Instructions: NEED TO CRUSH OR DISSOLVE MEDS TO SWALLOW. pantoprazole 40 mg tablet,delayed release (DR/EC) 40 mg PO BID Rx Instructions: NEED TO CRUSH OR DISSOLVE MEDS TO SWALLOW. albuterol sulfate 90 mcg/actuation HFA aerosol inhaler 2 puff INHALATION Q3H PRN (Reason: Shortness Of Breath) Anoro Ellipta 62.5-25 mcg/actuation blister with device 1 inh INHALATION QAM acetaminophen 325 mg Tablet 650 mg PO Q4H MDD 2-3 GRAMS/24 HOURS PRN (Reason: fever or pain) Qty: 30 0RF Rx Instructions: NEED TO CRUSH OR DISSOLVE MEDS TO SWALLOW. ondansetron HCl [Zofran] 4 mg Tablet 4 mg PO Q6H PRN (Reason: NAUSEA/VOMITING) Rx Instructions: NEED TO CRUSH OR DISSOLVE MEDS TO SWALLOW. Referrals Referrals: Manny Bland, [Primary Care Provider] -
--- NOTE | 2022-09-09 13:34 | XRay Report ---
XR chest 1V portable CLINICAL HISTORY: Sepsis TECHNIQUE: Single frontal radiograph of the chest was obtained. Comparison: Comparison is made to rib series 07/01/2021 FINDINGS: No lines and tubes are seen. Cardiomegaly is noted. The aortic arch is calcified. Prominence and ceph alization of the vasculature is seen. Bilateral airspace opacities are seen. There is a small left pl eural effusion. IMPRESSION: 1. Cardiomegaly and mild pulmonary edema. 2. Bilateral airspace opacities are new from prior exam and may represent aspiration, pneumonia, and /or pulmonary edema. ACT 112: Negative or not required by law. Electronically signed by: Junito Baxter M.D. 09/09/2022 1:33 PM
[2022-09-09 13:38] LABS: Basophils # (auto) 0.05 K/uL (0-0.2); Basophils % (auto) 0.4 %; Eosinophils # (auto) 0.04 K/uL (0-0.50); Eosinophils % (auto) 0.3 %; Hematocrit (blood only) 43.7 % (37.0-47.0); Immature Granulocytes # (auto) 0.08 K/uL (0.01-0.20); Immature Granulocytes % (auto) 0.6 %; Lymphocytes # (auto) 0.45 K/uL (1.2-3.4); Lymphocytes % (auto) 3.5 %; Mean Corpuscular Hemoglobin 28.6 pg (25.0-34.0); Mean Corpuscular Volume 89.2 fL (80.0-100.0); Mean Platelet Volume 10.3 fL (9.4-12.4); Monocytes # (auto) 0.86 K/uL (0.11-0.59); Monocytes % (auto) 6.6 %; Neutrophils # (auto) 11.51 K/uL (1.40-6.50); Neutrophils % (auto) 88.6 %; Platelet Count 249 K/uL (130-400); RDW Coefficient of Variation 14.2 % (11.5-14.5); White Blood Count 12.99 K/ul (4.8-10.8)
[2022-09-09 13:58] LABS: Troponin I High Sensitivity 8.1 pg/ml (0-14)
[2022-09-09 14:10] LABS: Alanine Aminotransferase 12 U/L (7-52); Albumin Level 3.6 gm/dl (3.4-5.0); Alkaline Phosphatase 83 U/L (34-104); Anion Gap 9 (3-11); Aspartate Aminotransferase 13 U/L (13-39); BUN Creatinine Ratio 19.1 (10-20); Bilirubin,Total 0.4 mg/dl (0.2-1.0); Blood Urea Nitrogen 18 mg/dl (6-23); Calcium 8.7 mg/dl (8.6-10.3); Carbon Dioxide 28 mmol/L (21-32); Chloride 101 mmol/L (98-107); Est GFR (African American) 67.3 ml/min; Est GFR (Non-African American) 58.1 ml/min; Glucose 159 mg/dl (70-99(Fasting)); Magnesium 1.5 mg/dl (1.7-2.4); Potassium 3.9 mmol/L (3.5-5.1); Sodium 138 mmol/L (136-145); Total Protein 6.6 gm/dl (6.0-8.3)
--- NOTE | 2022-09-09 14:24 | History & Physical Report ---
Date of Service September 09, 2022 Assessment & Plan (1) Aspiration pneumonia: Plan: Acute unstable Admission to med/surg Patient had one dose of Cefepime in ER NPO except sips with meds and mouth swabs Speech evaluation IV Unasyn and Azithromycin Check sputum culture (2) Sepsis: Plan: Acute unstable As above Follow CBC, BMP, magnesium level in the morning (3) Achalasia, esophageal: Plan: chronic await speech eval possibly may need GI evaluation here vs follow up with [place] (4) Headache: Plan: acute, But has a history of such in the past with low oxygen levels possibly secondary to sepsis, hypoxia, hypercarbia titrate O2 levels to maintain 89-92% Tylenol as needed Giving IV magnesium as well (5) Diabetes mellitus type 2 in obese: Plan: chronic stable She was recently taken off of metformin as an outpatient treat with ISS Currently NPO until speech evaluation (6) GERD (gastroesophageal reflux disease): Plan: chronic treat with Protonix 40mg BID while admitted (7) HTN (hypertension), benign: Plan: Chronic stable continue Diltiazem 180, But will hold home Lisinopril 40mg As blood pressures are not significantly elevated (8) Hyperlipidemia: Plan: Chronic and stable Holding home pravastatin 40mg For now to reduce pill burden until after speech eval (9) Vitamin B12 deficiency: Plan: chronic and stable oral vitamin replacement at home (10) Vitamin D deficiency: Plan: Chronic stable Vitamin D 3 replacement at home (11) Current smoker: Plan: patient quit for 7 months 05/2021 to 01/2022 then restarted counselled patient on the NEED to quit all tobacco use (12) COPD (chronic obstructive pulmonary disease): Plan: Chronic unstable, With some wheezing here Continue Anoro Ellipta or hospital eqivalent Duoneb flutter valve Continue Azithromycin and Unasyn Titrate O2 saturations to high 80s low 90s Check VBG Will not give steroids given ongoing mild confusion (13) Chronic low back pain: Plan: Takes chronic opioids-continue oxycodone 4 times a day Continue gabapentin, Cymbalta (14) Restless leg syndrome: Plan: Continue home Mirapex History of Present Illness Chief Complaint: hypoxia and cough Primary Care Provider: DO Silvia Celeste is a 77 year old female with a past medical history of aspiration pneumonia secondary to Type II Achalasia, Vitamin B12 deficiency, vitamin D deficiency, GERD, Anxiety, diabetes, degenerative disc disease, hypertension and hyperlipidemia who presented to the ER today accompanied by her daughter with complaints of hypoxia and saturations at home in the 80s, hallucinations and cough. Patient's daughter is at bedside and helps to provide some of the patient's history. They states that patient quit smoking for approximately 7 months and then restarted smoking a few months ago and at that time started to have an increase in her chronic cough. She does not use or have home O2. She has a home pulse ox and today she had some hallucinations and confusion and the dtr stated her O2 was in the mid to high 80s. She was complaining of being chilled but no documented fevers. She has had no chest pain, diaphoresis, rigors or hemoptysis. She denies any unintentional weight loss. Patient has Type II Achalasia and had EGD and Dilation to 51 FR in June 2021 in [place] and also had Heller Myotomy with Fundoplication in July 2021 in [place]. They states that patient had choking and bolus arrest about a week ago while eating [employer]. Per the daughter she does occasionally have choking while eating. Patient was evaluated in the ER, upon admission she was noted to be tachycardic with heart rate 95, Leukocytosis 12,990. O2 saturation was 84% on RA. She is alert and oriented x3, fatigued but states she did see "the blonde haired man with the pepito bear in the car." Allergies Allergy/AdvReac Type Severity Reaction Status Date / Time atorvastatin [From Lipitor] Allergy Intermediate Skin Rash Verified 07/31/21 19:26 morphine AdvReac Intermediate Nausea Verified 07/31/21 19:26 Home Medications Medication Instructions Recorded Confirmed Type cholecalciferol (vitamin D3) 25 25 mcg PO QAM 05/03/20 07/31/21 History mcg (1,000 unit) tablet (Vitamin D3) cyanocobalamin (vitamin B-12) 1,000 mcg PO QAM 05/03/20 07/31/21 History 1,000 mcg tablet (Vitamin B-12) diltiazem HCl 180 mg 180 mg PO QAM 05/03/20 07/31/21 History capsule,extended release 24 hr duloxetine 30 mg capsule,delayed 30 mg PO QAM 05/03/20 07/31/21 History release (Cymbalta) duloxetine 60 mg capsule,delayed 60 mg PO QAM 05/03/20 07/31/21 History release fenofibrate micronized 134 mg 134 mg PO QPM 05/03/20 07/31/21 History capsule gabapentin 600 mg tablet 600 mg PO TID 05/03/20 07/31/21 History lisinopril 40 mg tablet 40 mg PO QAM 05/03/20 07/31/21 History pramipexole 1 mg tablet (Mirapex) 1 mg PO HS 05/03/20 07/31/21 History pravastatin 40 mg tablet 40 mg PO QAM 05/03/20 07/31/21 History sucralfate 1 gram tablet (Carafate) 1 g PO ACHS PRN Indigestion 05/03/20 07/31/21 History famotidine 20 mg tablet 20 mg PO BID #14 tabs 05/06/20 07/31/21 Rx albuterol sulfate 90 mcg/actuation 2 puff inhalation Q3H PRN 11/08/20 07/31/21 History aerosol inhaler Shortness Of Breath umeclidinium 62.5 mcg-vilanterol 1 inh inhalation QAM 11/08/20 01/30/22 History 25 mcg/actuation powdr for inhalation (Anoro Ellipta) acetaminophen 325 mg tablet 650 mg PO Q4H PRN fever or pain 11/10/20 07/31/21 Rx #30 tabs diclofenac sodium 1 % topical gel 2 g topical QID PRN Pain 11/16/20 07/31/21 History oxycodone-acetaminophen 5 mg-325 1 tab PO Q6H PRN Pain 05/22/21 07/31/21 History mg tablet pantoprazole 40 mg tablet,delayed 40 mg PO BID 06/22/21 07/31/21 History release ondansetron HCl 4 mg tablet 4 mg PO Q6H PRN NAUSEA/VOMITING 07/31/21 07/31/21 History 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 Dysphagia Encounter for pre-operative examination Esophageal dysmotility GERD (gastroesophageal reflux disease) History of esophageal dilatation HTN (hypertension), benign Hyperlipidemia Nausea & vomiting anytime eats or drinks, per pt and granddaughter was thought to be d/t mucus from smoking as does not happen when not smoking during hospitalizations Obesity Peptic ulcer disease (~2017) bleeding ulcer Peripheral neuropathy Restless leg syndrome Schatzki's ring Sleep apnea unable to tolerate cpap Weight loss, unintentional Surgical History History of bilateral tubal ligation History of carpal tunnel release Left History of cataract surgery bilateral History of colonoscopy History of esophagogastroduodenoscopy (EGD) History of lumbar fusion History of repair of rotator cuff Right S/P epidural steroid injection Family History Father Heart disease Brother Kidney disease Mother Gastric cancer Family/Other Testicular cancer Other No family history of adverse response to anesthesia Social History Smoking Status: Current every day smoker Tobacco Type: Cigarettes Age Started Using Tobacco: 11; Cigarettes Per Day: 20; Second Hand Exposure: No; Do You Dip or Chew Tobacco: No; Hx Alcohol Use: No Hx Substance Use: No Preferred Language: [place] Islander Communication Ability: Effective Logging Worker Required: No Beliefs That Will Affect Care: None marital status: / Current Living Situation: Family Current Living Situation Comment: home with son Feels Safe at Home: Yes Assistive Devices: Walker Review of Systems Constitutional: + chills and + fatigue; no anorexia and no weight loss Ear, Nose, Mouth, Throat: + dysphagia; no nasal congestion, no post nasal drip, no epistaxis and no sore throat Respiratory: + cough and + chest congestion; no hemoptysis, no pain on inspiration and no pain with cough Cardiovascular: + edema; no chest pain, no radiating jaw, neck or arm pain, no syncope and no claudication Gastrointestinal: + bloating and + nausea; no abdominal pain, no early satiety and no vomiting Integumentary: no rash, no lesions and no new lesions Neurologic: + headache(s); no falls, no seizure-like activity, no syncope and no abnormal speech Psychiatric: + anxiety, + confusion and + hallucinations Physical Exam Constitutional: + obese, cooperative and comfortable Neck: trachea midline, no thyromegaly Respiratory: + labored breathing and symmetric chest movement; no respiratory distress upper respiratory coarse breath sounds, mild end expiratory wheeze,fine crackles Cardiovascular: Rate/Rhythm: regular rate and regular rhythm Heart Sounds: normal S1 and normal S2 Extremities: normal capillary refill and + edema; no calf tenderness Gastrointestinal (Abdomen): normal bowel sounds, soft, nontender, no hepatosplenomegaly Neurologic: PERRL, EOMI, accommodation nl, no face palsy, no dysarthria Psychiatric: A+Ox3, euthymic affect Results & Data Results & Data Vital Signs (Past 12 Hours) Vital Signs Temp Pulse Resp BP Pulse Ox O2 Del Method O2 Flow Rate 09/09/22 12:53 94 Nasal Cannula 4 09/09/22 13:02 90 09/09/22 12:45 36.8 C 95 H 22 107/69 84 L Room Air Laboratory Results Abnormal lab results 09/09/22 09/09/22 09/09/22 Range/Units 13:06 13:06 13:06 WBC 12.99 H (4.8-10.8) K/ul Neut # (Auto) 11.51 H (1.40-6.50) K/uL Lymph # (Auto) 0.45 L (1.2-3.4) K/uL [place] # (Auto) 0.86 H (0.11-0.59) K/uL VBG pH (7.36-7.41) VBG pCO2 (38-50) mmHg Glucose 159 H (70-99(Fasting)) mg/dl Lactate 2.8 H* (0.4-2.0) mmol/L Magnesium 1.5 L (1.7-2.4) mg/dl 09/09/22 09/09/22 Range/Units 14:55 15:06 WBC (4.8-10.8) K/ul Neut # (Auto) (1.40-6.50) K/uL Lymph # (Auto) (1.2-3.4) K/uL [place] # (Auto) (0.11-0.59) K/uL VBG pH 7.35 L (7.36-7.41) VBG pCO2 56 H (38-50) mmHg Glucose (70-99(Fasting)) mg/dl Lactate 2.5 H* (0.4-2.0) mmol/L Magnesium (1.7-2.4) mg/dl Diagnostic Findings Chest X-Ray 09/09/22 12:53 XR chest 1V portable CLINICAL HISTORY: Sepsis TECHNIQUE: Single frontal radiograph of the chest was obtained. Comparison: Comparison is made to rib series 07/01/2021 FINDINGS: No lines and tubes are seen. Cardiomegaly is noted. The aortic arch is calcified. Prominence and cephalization of the vasculature is seen. Bilateral airspace opacities are seen. There is a small left pleural effusion. IMPRESSION: 1. Cardiomegaly and mild pulmonary edema. 2. Bilateral airspace opacities are new from prior exam and may represent aspiration, pneumonia, and/or pulmonary edema. ACT 112: Negative or not required by law. Electronically signed by: Junito Baxter M.D. 09/09/2022 1:33 PM Supervising Physician Co-Signing Physician Notes PA Supervision Note: I personally saw and examined the patient. I verified all calderon points and agree with XANDER Chase with the following exceptions and/or additions: S-This patient is a 77-year-old female with history of COPD, hypertension, chronic pain, RLS, chronic pain on opioids,Who presents to the ER with worsening cough, sputum production, chills at home, and hypoxia to the 80s on home pulse oximeter.Her daughter also noted she was having visual hallucinations which is unusual for her. In the ER, she was found to have by basilar pneumonia right greater than left, elevated lactate and leukocytosis, with hypoxia requiring 4 L nasal cannula. History and ROS otherwise reviewed as above O- Vitals reviewed Gen: [AAOx2, NAD] HEENT: [anicteric sclerae, EOMI] CV: [RRR no mgr nl S1S2] Pulm: [Positive bilateral end expiratory wheezes, diminished breath sounds at the bases bilaterally, no rhonchi] Abd: [+BS soft NT ND no masses or hernias] Ext: [no edema, 2+ DP pulses] Skin: [no rashes, warm/dry] Neuro: [full strength throughout] Labs, Rads, and ECG reviewed A/O-[id number]-old female here with pneumonia, possibly aspiration pneumonia, Acute respiratory failure with hypoxia, as well as acute metabolic encephalopathy secondary to pneumonia and hypoxia. Giving antibiotics as above, titrate oxygen to 90% given COPD Make DuoNebs scheduled, add sputum culture Give IV fluids while n.p.o. until speech evaluation PG Care Time/CCT Total # of Minutes Spent Total Time Spent with Patient: Total time spent is greater than 50% in coordination of care (as documented) at patient's floor/unit and/or counseling patient: Coding Level of Care Code 30699 INT INP/OBS CARE 375MIN Diagnoses Aspiration pneumonia J69.0 Aspiration pneumonia type: unspecified Sepsis A41.9; R65.21; J96.01 Acute respiratory failure type: with hypoxia Sepsis acute organ dysfunction status: with acute organ dysfunction Sepsis type: sepsis due to unspecified organism Severe sepsis acute organ dysfunction type: acute respiratory failure Severe sepsis shock status: with septic shock Achalasia, esophageal K22.0 Headache R51.9 Diabetes mellitus type 2 in obese E11.69; E66.9 GERD (gastroesophageal reflux disease) K21.9 HTN (hypertension), benign I10 Hyperlipidemia E78.5 Vitamin B12 deficiency E53.8 Vitamin D deficiency E55.9 Current smoker F17.200 COPD (chronic obstructive pulmonary disease) J44.1 COPD type: COPD with acute exacerbation Chronic low back pain M54.5; G89.29 Restless leg syndrome G25.81 (1) Aspiration pneumonia Aspiration pneumonia type: unspecified (2) Sepsis Acute respiratory failure type: with hypoxia Sepsis acute organ dysfunction status: with acute organ dysfunction Sepsis type: sepsis due to unspecified organism Severe sepsis acute organ dysfunction type: acute respiratory failure Severe sepsis shock status: with septic shock Qualified Code(s): A41.9 - Sepsis, unspecified organism; R65.21 - Severe sepsis with septic shock; J96.01 - Acute respiratory failure with hypoxia (12) COPD (chronic obstructive pulmonary disease) COPD type: COPD with acute exacerbation Qualified Code(s): J44.1 - Chronic obstructive pulmonary disease with (acute) exacerbation
[2022-09-09 15:12] LABS: Base Excess VBG 3.8 mEq/L; HCO3 VBG 31 mmol/L; Oxygen Saturation VBG 76.9 %; PCO2 VBG 56 mmHg (38-50); PO2 VBG 44 mmHg; pH VBG 7.35 (7.36-7.41)
[2022-09-09] MEDS ORDERED: ONDANSETRON INJ 2 MG/ML 2 ML VIAL IV PRN (15:51)
[2022-09-09 16:13] LABS: Appearance Urine Clear (Clear); Bacteria Urine Automated Negative (Negative); Bilirubin Urine Negative (Negative); Blood Urine Negative (Negative); Cast Urine Automated 0 /lpf (0-5); Color Urine Yellow; Epithelial Cell Urine Auto 20-30 /lpf (0-5); Glucose Urine UA Negative (Negative); Ketones Urine Negative (Negative); Leukocyte Esterase Urine Negative (Negative); Nitrite Urine Negative (Negative); Protein Urine 2+ (Negative); RBC Urine Automated 0-4 /hpf (0-4); Specific Gravity Urine 1.021 (1.000-1.030); Urobilinogen Urine Negative (Negative)
[2022-09-09] MEDS: MAGNESIUM SULFATE / D5W 1 GM/100 ML BAG IV SCH ×2 (16:15→18:03)
[2022-09-09] MEDS: ACETAMINOPHEN 325 MG TAB PO PRN (16:15)
[2022-09-09] MEDS ORDERED: GLUCOSE 40% GEL 15 GM TUBE PO PRN (20:25)
[2022-09-09] MEDS ORDERED: DEXTROSE 50% 50 ML SYRINGE IV PRN (20:25)
[2022-09-09] MEDS ORDERED: ACETAMINOPHEN 325 MG TAB PO PRN (20:25)
[2022-09-09] MEDS ORDERED: GLUCOSE 10 TAB/TUBE PO PRN (20:25)
[2022-09-09] MEDS ORDERED: PHARMACY GLYCEMIC MGMT CONSULT PRN (20:25)
[2022-09-09] MEDS ORDERED: DEXTROSE 5% 1,000 ML IV SCH (20:25)
[2022-09-09] MEDS ORDERED: GLUCAGON FOR INJ 1 MG VIAL SQ PRN (20:25)
[2022-09-09] MEDS ORDERED: CARBOHYDRATES FOR HYPOGLYCEMIA PO PRN (20:25)
[2022-09-09] MEDS ORDERED: traZODone HCL 50 MG TAB PO ONE (21:00)
[2022-09-09] MEDS: AMPICILLIN/SULBACTAM SOD 3,000 MG in 0.9 % SODIUM CHLORIDE 100 ML IV SCH (21:30)
[2022-09-09] MEDS: ENOXAPARIN INJ 40 MG/0.4 ML SYR SQ SCH (21:30)
[2022-09-09] MEDS: INSULIN ASPART PER UNIT CHARGE SC SCH ×2 (21:30→23:52)
[2022-09-09] MEDS: LACTATED RINGER'S 1,000 ML IV SCH (21:30)
[2022-09-09] MEDS: GABAPENTIN 250 MG/5 ML 470 ML BTL PO SCH (21:31)
[2022-09-09] MEDS: LANSOPRAZOLE 30 MG SOLTAB PO SCH (21:31)
[2022-09-09] MEDS: NICOTINE 14 MG/24 HR PATCH TD SCH (21:31)
[2022-09-09] MEDS: oxyCODONE/ACETAMINOPHEN 5mg/325mg TAB PO SCH (21:31)
[2022-09-09] MEDS: PRAMIPEXOLE DIHYDROCHLO 0.5 MG TAB PO SCH (21:32)
[2022-09-09] MEDS: AZITHROMYCIN 500 MG in DEXTROSE 5% 250 ML IV SCH (21:59)
[2022-09-09] MEDS: ALBUT/IPRATROP 3MG/0.5MG NEB 3 ML VIAL NEB SCH (22:16)
[2022-09-10] MEDS: ACETAMINOPHEN 325 MG TAB PO PRN ×3 (01:39→21:32)
[2022-09-10] MEDS: AMPICILLIN/SULBACTAM SOD 3,000 MG in 0.9 % SODIUM CHLORIDE 100 ML IV SCH ×4 (02:23→20:24)
[2022-09-10] MEDS: INSULIN ASPART PER UNIT CHARGE SC SCH ×4 (06:02→20:42)
[2022-09-10] MEDS ORDERED: METOCLOPRAMIDE HCL INJ 5 MG/ML 2 ML VIAL IV ONE (06:13)
[2022-09-10] MEDS: ALBUT/IPRATROP 3MG/0.5MG NEB 3 ML VIAL NEB SCH ×4 (06:51→19:10)
[2022-09-10 07:36] LABS: Basophils # (auto) 0.05 K/uL (0-0.2); Basophils % (auto) 0.3 %; Eosinophils # (auto) 0.12 K/uL (0-0.50); Eosinophils % (auto) 0.6 %; Hematocrit (blood only) 39.1 % (37.0-47.0); Hemoglobin 12.9 g/dl (12.0-16.0); Immature Granulocytes # (auto) 0.24 K/uL (0.01-0.20); Immature Granulocytes % (auto) 1.2 %; Lymphocytes # (auto) 1.89 K/uL (1.2-3.4); Lymphocytes % (auto) 9.5 %; Mean Corpuscular Hemoglobin 28.9 pg (25.0-34.0); Mean Corpuscular Volume 87.7 fL (80.0-100.0); Mean Platelet Volume 10.5 fL (9.4-12.4); Monocytes # (auto) 1.19 K/uL (0.11-0.59); Neutrophils # (auto) 16.42 K/uL (1.40-6.50); Neutrophils % (auto) 82.4 %; Platelet Count 230 K/uL (130-400); RDW Coefficient of Variation 14.3 % (11.5-14.5); RDW Standard Deviation 45.9 fL (36.4-46.3); Red Blood Count 4.46 M/uL (4.20-5.40); White Blood Count 19.91 K/ul (4.8-10.8)
--- NOTE | 2022-09-10 07:42 | Electrocardiogram Report ---
Test Reason : Blood Pressure : / mmHG Vent. Rate : 089 BPM Atrial Rate : 089 BPM P-R Int : 208 ms QRS Dur : 100 ms QT Int : 386 ms P-R-T Axes : 054 -60 064 degrees QTc Int : 469 ms Normal sinus rhythm Left axis deviation Poor R wave progression, consider anterior SC vs. lead placement vs. LVH Abnormal ECG When compared with ECG of 29-JUN-2021 16:12, Premature ventricular complexes are no longer Present Questionable change in initial forces of Anterior leads Confirmed by Jose A Camarena ([id number]) on 09/10/2022 7:42:23 AM Referred By: REFERRED SELF Confirmed By:Jose A Camarena
[2022-09-10 07:54] LABS: BUN Creatinine Ratio 17.6 (10-20); Creatinine Clr Calc Pharmacy 56.3 ml/min; Est GFR (African American) 76.1 ml/min; Est GFR (Non-African American) 65.6 ml/min; Potassium 3.9 mmol/L (3.5-5.1)
[2022-09-10] MEDS: dilTIAZem HCL 30 MG TAB PO SCH ×4 (08:06→20:25)
[2022-09-10] MEDS: DULoxetine HCL 30 MG CAP PO SCH (08:07)
[2022-09-10] MEDS: LANSOPRAZOLE 30 MG SOLTAB PO SCH ×2 (08:07→20:27)
[2022-09-10] MEDS: NICOTINE 14 MG/24 HR PATCH TD SCH (08:07)
[2022-09-10] MEDS: FLUTICASONE/VILANTEROL 100/25MCG 14 PUFFS/INHALER INH SCH (08:07)
[2022-09-10] MEDS: DULoxetine HCL 60 MG CAP PO SCH (08:07)
[2022-09-10] MEDS: oxyCODONE/ACETAMINOPHEN 5mg/325mg TAB PO SCH ×4 (08:11→20:33)
[2022-09-10] MEDS: GABAPENTIN 250 MG/5 ML 470 ML BTL PO SCH ×3 (08:11→20:26)
[2022-09-10] MEDS: LACTATED RINGER'S 1,000 ML IV SCH (08:23)
[2022-09-10] MEDS ORDERED: dilTIAZem HCL 180 MG CAPCR PO SCH (09:00)
--- NOTE | 2022-09-10 11:44 | Fluoroscopy Report ---
FL barium swallow w/o air CLINICAL HISTORY: Assess for esophageal dysfunction. Dysphagia with solids and liquids sticking in st ernal area. COMPARISON STUDY: None. FLUOROSCOPY TIME: 1 minute and 2 seconds. FLUOROSCOPY IMAGES: 45 Ka,r: 50 mGy FINDINGS: The patient swallowed barium without difficulty. The contours of the hypopharynx are within normal limits. There is mild to moderate esophageal dysmotility. There is a tiny hiatus hernia. Post operative changes consistent with prior Gonzalez fundoplication. No gastroesophageal reflux demonstrate d during the examination. The barium tablet passed without difficulty. The proximal esophagus is slig htly distended to the level of the aortic knob. There is a tortuous esophagus. The mild distention of the proximal esophagus could be due to mass effect from the aortic knob. A low-grade esophageal stri cture is considered less likely but not entirely excluded. IMPRESSION: 1. Moderate hiatus hernia. 2. Prior Gonzalez fundoplication with a tiny hiatal hernia remaining. 3. The proximal esophagus is slightly distended to the level of the aortic knob. There is a tortuous esophagus. The mild distention of the proximal esophagus could be due to mass effect from the aortic knob. A low-grade esophageal stricture is considered less likely but not entirely excluded. ACT 112: Negative or not required by law. Electronically signed by: Alvin Mcmillan M.D. 09/10/2022 11:42 AM
[2022-09-10] MEDS ORDERED: Nursing to Pharmacy Communication SCH (11:45)
--- NOTE | 2022-09-10 15:06 | Hospitalist Progress Note ---
Date of Service September 10, 2022 Assessment & Plan (1) Aspiration pneumonia: Plan: Acute/unstable - high risk - h/o type 2 achalasia - Patient had one dose of Cefepime in ER - NPO except sips with meds and mouth swabs - MOVING PICTURE PRODUCER evaluation ordered - completed barium swallowing study, recommended minced and moist diet - Continue IV Unasyn and Azithromycin - sputum culture ordered/collected/pending - Can tailor abx based on culture data accordingly - Add Mucinex 600mg BID (2) Acute and chronic respiratory failure with hypoxia: Plan: Acute/unstable with hx of borderline chronic respiratory failure d/t COPD - Continue supplemental O2 - goal pulse ox 88-92% - Wean as able (3) Sepsis: Plan: Acute/unstable - Blood cultures pending - CBC reviewed today, WBC uptrended from 12.9 to 19.9 - Unsure what may be contributing to the acute rise in wbc, do not see that she received steroids in ED - Would hold off on changing antibiotics for now and repeat CBC in AM - She is otherwise HD stable, afebrile, and not hypotensive or tachycardic (4) Achalasia, esophageal: Plan: Chronic - Was actually transferred to [facility] to [facility] surgery (Dr. Darden) for treatment of her type 2 achalasia - Underwent bronchoscopy with lavage, flexible EGD, savary dilation under fluoroscopic guidance over guidewire from 48 to 51 greek savary dilator - Appreciate MOVING PICTURE PRODUCER consult, diet modifications implemented - Concern that patient eats too much too fast and then vomits which is causing the aspiration pna (5) Headache: Plan: acute, but has a history of such in the past with low oxygen levels - likely multifactorial in setting of sepsis, hypoxia, hypercarbia - titrate O2 levels to maintain 88-92% - Tylenol as needed - Given IV magnesium as well - Asymptomatic today (6) Diabetes mellitus type 2 in obese: Plan: chronic stable - She was recently taken off of metformin as an outpatient - treat with ISS - Currently NPO until speech evaluation (7) GERD (gastroesophageal reflux disease): Plan: chronic - treat with Protonix 40mg BID while admitted (8) HTN (hypertension), benign: Plan: Hx HTN/HLD Chronic/stable - continue Diltiazem 180mg daily - hold home Lisinopril 40mg as blood pressures are not significantly elevated - Held Pravastatin to reduce pill burden until after speech eval, can resume (9) COPD (chronic obstructive pulmonary disease): Plan: Chronic/unstable - Continue Anoro Ellipta or hospital equivalent - Duoneb QIDR and q2 prn - flutter valve - Will not give steroids given ongoing mild confusion - Continues to smoke - patient quit for 7 months 05/2021 to 01/2022 then restarted - counselled patient on the NEED to quit all tobacco use (10) Chronic low back pain: Plan: chronic/stable - continue oxycodone 4 times a day - Continue gabapentin, Cymbalta Plan Currently on Lovenox which is providing DVT ppx. Repeat labs in AM including CBC and BMP. Will discuss plan with Dr. Granda. Admission and Anticipated Discharge Date Admission Date: September 09, 2022 Subjective Patient seen on daily rounds this morning. She is resting comfortably in bed and offers Physical Exam Physical Exam: GENERAL: 77 yo well-developed, well-nourished elderly F. AAOx4. NAD. LUNGS: Nonlabored. Bibasilar crackles. CARDIOVASCULAR: Regular rate and rhythm. ABDOMEN: Soft, non-tender and non-distended. BS normoactive x 4 quad. EXTREMITIES: No edema. Non-tender. Peripheral pulses +2/4. Results & Data Results & Data Vital Signs (Past 12 Hours) Vital Signs Temp Pulse Pulse Resp BP Pulse Ox O2 Del Method 09/10/22 07:36 Nasal Cannula 09/10/22 07:16 36.7 C 85 18 145/75 H 94 Nasal Cannula 09/10/22 06:52 74 18 92 Nasal Cannula O2 Flow Rate 09/10/22 07:36 4 09/10/22 07:16 4 09/10/22 06:52 4 Laboratory Results 09/10/22 06:53 09/10/22 06:53 PG Care Time/CCT Total # of Minutes Spent Total Time Spent with Patient: Total time spent is greater than 50% in coordination of care (as documented) at patient's floor/unit and/or counseling patient: Coding Level of Care Code 85376 SUB INP/OBS CARE 3/50MIN Diagnoses Aspiration pneumonia J69.0 Aspiration pneumonia type: unspecified Acute and chronic respiratory failure with hypoxia J96.21 Sepsis A41.9; R65.21; J96.01 Acute respiratory failure type: with hypoxia Sepsis acute organ dysfunction status: with acute organ dysfunction Sepsis type: sepsis due to unspecified organism Severe sepsis acute organ dysfunction type: acute respiratory failure Severe sepsis shock status: with septic shock Achalasia, esophageal K22.0 Headache R51.9 Diabetes mellitus type 2 in obese E11.69; E66.9 GERD (gastroesophageal reflux disease) K21.9 HTN (hypertension), benign I10 COPD (chronic obstructive pulmonary disease) J44.1 COPD type: COPD with acute exacerbation Chronic low back pain M54.5; G89.29 (1) Aspiration pneumonia Aspiration pneumonia type: unspecified (3) Sepsis Acute respiratory failure type: with hypoxia Sepsis acute organ dysfunction status: with acute organ dysfunction Sepsis type: sepsis due to unspecified organism Severe sepsis acute organ dysfunction type: acute respiratory failure Severe sepsis shock status: with septic shock Qualified Code(s): A41.9 - Sepsis, unspecified organism; R65.21 - Severe sepsis with septic shock; J96.01 - Acute respiratory failure with hypoxia (9) COPD (chronic obstructive pulmonary disease) COPD type: COPD with acute exacerbation Qualified Code(s): J44.1 - Chronic obstructive pulmonary disease with (acute) exacerbation
[2022-09-10] MEDS: ENOXAPARIN INJ 40 MG/0.4 ML SYR SQ SCH (20:26)
[2022-09-10] MEDS: guaiFENesin 600 MG TABCR PO SCH (20:27)
[2022-09-10] MEDS: PRAMIPEXOLE DIHYDROCHLO 0.5 MG TAB PO SCH (20:28)
[2022-09-10] MEDS: AZITHROMYCIN 500 MG in DEXTROSE 5% 250 ML IV SCH (21:32)
[2022-09-11] MEDS: AMPICILLIN/SULBACTAM SOD 3,000 MG in 0.9 % SODIUM CHLORIDE 100 ML IV SCH ×4 (02:29→19:54)
[2022-09-11] MEDS: ALBUT/IPRATROP 3MG/0.5MG NEB 3 ML VIAL NEB SCH ×4 (07:19→19:11)
[2022-09-11] MEDS: LANSOPRAZOLE 30 MG SOLTAB PO SCH ×2 (07:25→19:57)
[2022-09-11] MEDS: guaiFENesin 600 MG TABCR PO SCH ×2 (07:48→19:57)
[2022-09-11] MEDS: oxyCODONE/ACETAMINOPHEN 5mg/325mg TAB PO SCH ×4 (07:48→20:02)
[2022-09-11] MEDS: FLUTICASONE/VILANTEROL 100/25MCG 14 PUFFS/INHALER INH SCH (07:48)
[2022-09-11] MEDS: DULoxetine HCL 30 MG CAP PO SCH (07:50)
[2022-09-11] MEDS: DULoxetine HCL 60 MG CAP PO SCH (07:50)
[2022-09-11] MEDS: dilTIAZem HCL 30 MG TAB PO SCH ×4 (07:50→19:55)
[2022-09-11] MEDS: NICOTINE 14 MG/24 HR PATCH TD SCH (07:51)
[2022-09-11] MEDS: GABAPENTIN 250 MG/5 ML 470 ML BTL PO SCH ×2 (08:18→15:37)
[2022-09-11] MEDS: INSULIN ASPART PER UNIT CHARGE SC SCH ×4 (08:53→20:41)
--- NOTE | 2022-09-11 09:14 | Hospitalist Progress Note ---
Date of Service September 11, 2022 Assessment & Plan (1) Aspiration pneumonia: Plan: Acute/unstable - high risk - h/o type 2 achalasia - Patient had one dose of Cefepime in ER - CHIEF OPERATOR SYNTHESIS evaluation ordered - completed barium swallowing study, recommended minced and moist diet - Continue IV Unasyn and Azithromycin - sputum culture ordered/collected/pending (light normal zohreh preliminary) - blood cultures pending - Can tailor abx based on culture data accordingly - Continue Mucinex 600mg BID - Discussed sitting upright to eat and eat slower - Will need to continue minced moist diet (2) Acute and chronic respiratory failure with hypoxia: Plan: Acute/unstable with hx of borderline chronic respiratory failure d/t COPD - Continue supplemental O2 - goal pulse ox 88-92% - Wean as able, currently only on 1 liter (3) Sepsis: Plan: Acute/unstable - Blood cultures pending - CBC reviewed today WBC down trending to 12 (19) - She is otherwise HD stable, afebrile, and not hypotensive or tachycardic (4) Achalasia, esophageal: Plan: Chronic - Was actually transferred to [facility] to CT surgery (Dr. Darden) for treatment of her type 2 achalasia - Underwent bronchoscopy with lavage, flexible EGD, savary dilation under fluoroscopic guidance over guidewire from 48 to 51 bengali savary dilator - Appreciate CHIEF OPERATOR SYNTHESIS consult, diet modifications implemented - Concern that patient eats too much too fast and then vomits which is causing the aspiration pna (5) Headache: Plan: acute but has a history of such in the past with low oxygen levels Improved and asymptomatic - likely multifactorial in setting of sepsis, hypoxia, hypercarbia - titrate O2 levels to maintain 88-92% - Tylenol as needed - Given IV magnesium as well (6) Diabetes mellitus type 2 in obese: Plan: chronic stable - She was recently taken off of metformin as an outpatient - treat with ISS (7) GERD (gastroesophageal reflux disease): Plan: chronic and stable - treat with Protonix 40mg BID while admitted (8) HTN (hypertension), benign: Plan: Chronic stable Hx HTN/HLD - continue Diltiazem 180mg daily - Resume home pravastatin and lisinopril (9) COPD (chronic obstructive pulmonary disease): Plan: Chronic/unstable - Continue Anoro Ellipta or hospital equivalent - Duoneb QIDR and q2 prn - flutter valve - Will not give steroids given ongoing mild confusion - Continues to smoke - patient quit for 7 months 05/2021 to 01/2022 then restarted - counselled patient on the NEED to quit all tobacco use (10) Chronic low back pain: Plan: chronic/stable - continue oxycodone 4 times a day - Continue gabapentin, Cymbalta Plan Currently on Lovenox which is providing DVT ppx. Repeat labs in AM including CBC and BMP. Will discuss plan with Dr. Granda. Admission and Anticipated Discharge Date Admission Date: September 09, 2022 Subjective Patient seen this afternoon. She was sitting up in recliner in [facility]. She tells me she is feeling much better. She is asking for some melatonin to help her sleep, she states she take at home. Patient states she tolerating the moist and minced diet. she deneis any further chokig. She does admit to some nausea but no vomiting. She feels her congestion and coughing are improving. Review of Systems Constitutional: + chills and + fatigue; no anorexia and no weight loss Ear, Nose, Mouth, Throat: + dysphagia; no nasal congestion, no post nasal drip, no epistaxis and no sore throat Respiratory: + cough and + chest congestion; no hemoptysis, no pain on inspiration and no pain with cough Cardiovascular: + edema; no chest pain, no radiating jaw, neck or arm pain, no syncope and no claudication Gastrointestinal: + bloating and + nausea; no abdominal pain, no early satiety and no vomiting Integumentary: no rash, no lesions and no new lesions Neurologic: + headache(s); no falls, no seizure-like activity, no syncope and no abnormal speech Psychiatric: + anxiety, + confusion and + hallucinations Physical Exam Constitutional: + obese, cooperative and comfortable Neck: trachea midline, no thyromegaly Respiratory: + cough, able to speak in complete sentences and symmetric chest movement; no respiratory distress Cardiovascular: Rate/Rhythm: regular rate and regular rhythm Heart Sounds: normal S1 and normal S2 Extremities: normal capillary refill and + edema; no calf tenderness Gastrointestinal (Abdomen): normal bowel sounds, soft, nontender, no hepatosplenomegaly Neurologic: PERRL, EOMI, accommodation nl, no face palsy, no dysarthria Psychiatric: A+Ox3, euthymic affect Results & Data Results & Data Vital Signs (Past 12 Hours) Vital Signs Temp Pulse Resp BP Pulse Ox O2 Del Method O2 Flow Rate 09/11/22 07:30 36.7 C 86 16 156/77 H 94 Nasal Cannula 2 09/11/22 07:20 83 18 93 Nasal Cannula 1 09/11/22 00:43 82 94 Nasal Cannula 4 Laboratory Results Abnormal lab results 09/10/22 09/10/22 09/11/22 Range/Units 17:09 20:32 08:03 WBC (4.8-10.8) K/ul POC Glucose 152 H 164 H 171 H (70-99) mg/dl 09/11/22 09/11/22 Range/Units 09:28 12:02 WBC 12.00 H (4.8-10.8) K/ul POC Glucose 189 H (70-99) mg/dl PG Care Time/CCT Total # of Minutes Spent Total Time Spent with Patient: Total time spent is greater than 50% in coordination of care (as documented) at patient's floor/unit and/or counseling patient: Coding Level of Care Code 74950 SUB INP/OBS CARE 05/12MIN Diagnoses Aspiration pneumonia J69.0 Aspiration pneumonia type: unspecified Acute and chronic respiratory failure with hypoxia J96.21 Sepsis A41.9; R65.21; J96.01 Acute respiratory failure type: with hypoxia Sepsis acute organ dysfunction status: with acute organ dysfunction Sepsis type: sepsis due to unspecified organism Severe sepsis acute organ dysfunction type: acute respiratory failure Severe sepsis shock status: with septic shock Achalasia, esophageal K22.0 Headache R51.9 Diabetes mellitus type 2 in obese E11.69; E66.9 GERD (gastroesophageal reflux disease) K21.9 HTN (hypertension), benign I10 COPD (chronic obstructive pulmonary disease) J44.1 COPD type: COPD with acute exacerbation Chronic low back pain M54.5; G89.29 (1) Aspiration pneumonia Aspiration pneumonia type: unspecified (3) Sepsis Acute respiratory failure type: with hypoxia Sepsis acute organ dysfunction status: with acute organ dysfunction Sepsis type: sepsis due to unspecified organism Severe sepsis acute organ dysfunction type: acute respiratory failure Severe sepsis shock status: with septic shock Qualified Code(s): A41.9 - Sepsis, unspecified organism; R65.21 - Severe sepsis with septic shock; J96.01 - Acute respiratory failure with hypoxia (9) COPD (chronic obstructive pulmonary disease) COPD type: COPD with acute exacerbation Qualified Code(s): J44.1 - Chronic obstructive pulmonary disease with (acute) exacerbation
[2022-09-11 10:03] LABS: Hematocrit (blood only) 40.5 % (37.0-47.0); Hemoglobin 13.2 g/dl (12.0-16.0); Mean Corpuscular Hgb Conc 32.6 g/dL (32.0-36.0); Mean Platelet Volume 10.5 fL (9.4-12.4); Platelet Count 227 K/uL (130-400); RDW Coefficient of Variation 14.1 % (11.5-14.5); RDW Standard Deviation 45.3 fL (36.4-46.3); Red Blood Count 4.55 M/uL (4.20-5.40)
--- NOTE | 2022-09-11 14:56 | Pharmacy Report ---
Pharmacy Glycemic Short Note 2 - Date of Service September 11, 2022 - Glycemic Short BSG Results (Last 24 hours): 09/10/22 09/10/22 09/11/22 17:09 20:32 08:03 POC Glucose 152 H 164 H 171 H 09/11/22 12:02 POC Glucose 189 H OUTPATIENT ANTIDIABETIC REGIMEN: * metformin - recently taken off per notes * A1c ~8 % ASSESSMENT: * Patient admitted with aspiration pneumonia. Pharmacy consulted for glycemic management. Received total of 8 units of correctional insulin yesterday * Fasting BSG 171 mg/dL - will plan to add low dose basal insulin later today PLAN FOR INPATIENT GLYCEMIC CONTROL: * Hold outpatient oral diabetes medications * Basal insulin * Lantus 7 units daily * Bolus insulin * NovoLog per scale ACHS or Q6hrs while NPO * Goal Range: Low 110 mg/dL - High 140 mg/dL * Correction Factor: 30 mg/dL/unit * Nutritional / Prandial insulin per carb ratio of 1 unit per 12 grams CHO consumed
[2022-09-11] MEDS ORDERED: LANTUS PER UNIT CHARGE SC SCH (17:00)
[2022-09-11] MEDS ORDERED: PRAVASTATIN SOD 40 MG TAB PO SCH (17:00)
[2022-09-11] MEDS: ENOXAPARIN INJ 40 MG/0.4 ML SYR SQ SCH (19:56)
[2022-09-11] MEDS: GABAPENTIN 600 MG TAB PO SCH (19:56)
[2022-09-11] MEDS: PRAMIPEXOLE DIHYDROCHLO 0.5 MG TAB PO SCH (19:58)
[2022-09-11] MEDS ORDERED: MELATONIN 3 MG TAB PO SCH (21:00)
[2022-09-12] MEDS: AMPICILLIN/SULBACTAM SOD 3,000 MG in 0.9 % SODIUM CHLORIDE 100 ML IV SCH ×2 (02:13→08:34)
[2022-09-12 07:03] LABS: Hemoglobin 13.2 g/dl (12.0-16.0); Mean Corpuscular Hemoglobin 28.9 pg (25.0-34.0); Mean Corpuscular Volume 87.5 fL (80.0-100.0); Mean Platelet Volume 10.2 fL (9.4-12.4); Platelet Count 248 K/uL (130-400); RDW Coefficient of Variation 14.1 % (11.5-14.5); RDW Standard Deviation 45.2 fL (36.4-46.3); Red Blood Count 4.57 M/uL (4.20-5.40); White Blood Count 10.35 K/ul (4.8-10.8)
[2022-09-12 07:28] LABS: BUN Creatinine Ratio 21.8 (10-20); Calcium 9.2 mg/dl (8.6-10.3); Est GFR (Non-African American) 63.8 ml/min; Magnesium 1.8 mg/dl (1.7-2.4); Potassium 4.5 mmol/L (3.5-5.1)
[2022-09-12] MEDS: ALBUT/IPRATROP 3MG/0.5MG NEB 3 ML VIAL NEB SCH ×2 (07:38→10:25)
[2022-09-12] MEDS: LANSOPRAZOLE 30 MG SOLTAB PO SCH (08:32)
[2022-09-12] MEDS: FLUTICASONE/VILANTEROL 100/25MCG 14 PUFFS/INHALER INH SCH (08:32)
[2022-09-12] MEDS: DULoxetine HCL 30 MG CAP PO SCH (08:33)
[2022-09-12] MEDS: DULoxetine HCL 60 MG CAP PO SCH (08:33)
[2022-09-12] MEDS: NICOTINE 14 MG/24 HR PATCH TD SCH (08:33)
[2022-09-12] MEDS: dilTIAZem HCL 30 MG TAB PO SCH ×2 (08:33→12:47)
[2022-09-12] MEDS: guaiFENesin 600 MG TABCR PO SCH (08:34)
[2022-09-12] MEDS: oxyCODONE/ACETAMINOPHEN 5mg/325mg TAB PO SCH ×2 (08:34→12:47)
[2022-09-12] MEDS: GABAPENTIN 600 MG TAB PO SCH (08:34)
[2022-09-12] MEDS: INSULIN ASPART PER UNIT CHARGE SC SCH ×2 (08:58→12:44)
[2022-09-12] MEDS ORDERED: lisinopril 40 MG TAB PO SCH (09:00)
--- NOTE | 2022-09-12 11:56 | Discharge Summary ---
Date of Service September 12, 2022 Admission HPI Per Admitting Provider Silvia Church is a 77 year old female with a past medical history of aspiration pneumonia secondary to Type II Achalasia, Vitamin B12 deficiency, vitamin D deficiency, GERD, Anxiety, diabetes, degenerative disc disease, hypertension and hyperlipidemia who presented to the ER today accompanied by her daughter with complaints of hypoxia and saturations at home in the 80s, hallucinations and cough. Patient's daughter is at bedside and helps to provide some of the patient's history. They states that patient quit smoking for approximately 7 months and then restarted smoking a few months ago and at that time started to have an increase in her chronic cough. She does not use or have home O2. She has a home pulse ox and today she had some hallucinations and confusion and the dtr stated her O2 was in the mid to high 80s. She was complaining of being chilled but no documented fevers. She has had no chest pain, diaphoresis, rigors or hemoptysis. She denies any unintentional weight loss. Patient has Type II Achalasia and had EGD and Dilation to 51 FR in June 2021 in [place] and also had Heller Myotomy with Fundoplication in July 2021 in [place]. They states that patient had choking and bolus arrest about a week ago while eating Hum. Per the daughter she does occasionally have choking while eating. Patient was evaluated in the ER, upon admission she was noted to be tachycardic with heart rate 95, Leukocytosis 12,990. O2 saturation was 84% on RA. She is alert and oriented x3, fatigued but states she did see "the blonde haired man with the pepito bear in the car." Admission Exam Per Admitting Provider Constitutional: + obese, cooperative and comfortable Neck: trachea midline, no thyromegaly Respiratory: + labored breathing and symmetric chest movement; no respiratory distressupper respiratory coarse breath sounds, mild end expiratory wheeze,fine crackles Cardiovascular: Rate/Rhythm: regular rate and regular rhythm Heart Sounds: normal S1 and normal S2 Extremities: normal capillary refill and + edema; no calf tenderness Gastrointestinal (Abdomen): normal bowel sounds, soft, nontender, no hepatosplenomegaly Neurologic: PERRL, EOMI, accommodation nl, no face palsy, no dysarthria Psychiatric: A+Ox3, euthymic affect Principal Diagnosis aspiration pneumonia Discharge Exam Constitutional + obese, cooperative and comfortable Neck trachea midline, no thyromegaly Respiratory + cough, able to speak in complete sentences and symmetric chest movement; no respiratory distress and no labored breathing Cardiovascular Rate/Rhythm: regular rate and regular rhythm Heart Sounds: normal S1 and normal S2 Extremities: normal capillary refill and + edema; no calf tenderness Gastrointestinal (Abdomen) normal bowel sounds, soft, nontender, no hepatosplenomegaly Neurologic PERRL, EOMI, accommodation nl, no face palsy, no dysarthria Psychiatric A+Ox3, euthymic affect Discharge Data Allergies Allergy/AdvReac Type Severity Reaction Status Date / Time atorvastatin [From Lipitor] Allergy Intermediate Skin Rash Verified 07/31/21 19:26 morphine AdvReac Intermediate Nausea Verified 07/31/21 19:26 Consultations 09/09/22 14:10 ED Decision to Admit Stat Hospital Course (1) Aspiration pneumonia: Acute/unstable - high risk - h/o type 2 achalasia - Patient had one dose of Cefepime in ER - DIGITAL COMPUTER OPERATOR evaluation ordered - completed barium swallowing study, recommended minced and moist diet - Continued IV Unasyn and Azithromycin while admitted (completed 3 doses of Azithromycin) - sputum culture ordered - normal zohreh - blood cultures pending - NGTD (48H) - Continue Mucinex 600mg BID - Discussed sitting upright to eat and eat slower - Will need to continue minced moist diet - Need to continue to NOT smoke (2) Acute and chronic respiratory failure with hypoxia: Acute/unstable with hx of borderline chronic respiratory failure d/t COPD - 2 STEP today and need for 2 L at rest and 3 L with exertion (3) Sepsis: Acute/unstable - Blood cultures pending - CBC reviewed today WBC normal now - She is otherwise HD stable, afebrile, and not hypotensive or tachycardic (4) Achalasia, esophageal: Chronic - Was actually transferred to [facility] to CT surgery (Dr. Darden) for treatment of her type 2 achalasia - Underwent bronchoscopy with lavage, flexible EGD, savary dilation under fluoroscopic guidance over guidewire from 48 to 51 bahraini savary dilator - Appreciate DIGITAL COMPUTER OPERATOR consult, diet modifications implemented - Concern that patient eats too much too fast and then vomits which is causing the aspiration pna Will need to continue the minced moist diet and NO SMOKING (5) Headache: acute but has a history of such in the past with low oxygen levels Improved and asymptomatic - likely multifactorial in setting of sepsis, hypoxia, hypercarbia - titrate O2 levels to maintain 88-92% - Tylenol as needed - Given IV magnesium as well (6) Diabetes mellitus type 2 in obese: chronic stable - She was recently taken off of metformin as an outpatient - treat with ISS (7) GERD (gastroesophageal reflux disease): chronic and stable - treat with Protonix 40mg BID while admitted (8) HTN (hypertension), benign: Chronic stable Hx HTN/HLD - continue Diltiazem 180mg daily - Resume home pravastatin and lisinopril (9) COPD (chronic obstructive pulmonary disease): Chronic/unstable - Continue Anoro Ellipta or hospital equivalent - Duoneb QIDR and q2 prn - flutter valve - Will not give steroids given ongoing mild confusion - Continues to smoke - patient quit for 7 months 05/2021 to 01/2022 then restarted - counselled patient on the NEED to quit all tobacco use (10) Chronic low back pain: chronic/stable - continue oxycodone 4 times a day - Continue gabapentin, Cymbalta Plan Currently on Lovenox which is providing DVT ppx. Repeat labs in AM including CBC and BMP. Will discuss plan with Dr. Granda. Total Time Total Time Spent Total Time Spent (In Minutes): 40 Discharge Plan Discharge Items Patient Disposition: Home - Self-Care Reason For Visit: ASPIRATION PNEUMONIA HYPOXIA SEPSIS Discharge Diagnosis: Aspiration pneumonia Activity: Resume your previous activity Weightbearing: Full weightbearing Non-emergency contact: Primary Care Provider Call non-emergency contact if: you have any medication questions and your temperature is above 101.5 Follow-up/Referrals: Manny Bland DO [Primary Care Provider] - Diet: Carb Consistent or DM2 Diet Comment: MINCED AND MOIST Addtl Attending Provider Instructions: You were admitted and found to have aspiration pneumonia and you had speech evaluation and a swallow study. You need to remain on a minced and moist diabetic diet and NEED to continue to NOT smoke. You had a repsiratory evaluation and need to have 2 Liters of oxygen at all times and 3 L with exert ion, You will be sent home on Augmentin 500mg one 2 x per day for another 5 days. You should follow up with your family doctor next week . Also follow up with your GI doctor for the achalasia. Pending Studies at Discharge: Yes Studies:: final blood cultures Stand-Alone Forms: My [facility], Pain - Opioid Pain Management, Smoking Cessation Medications and DC Order Prescriptions: New amoxicillin-pot clavulanate [Augmentin] 500-125 mg tablet 1 tab PO BID Qty: 14 0RF Continued pramipexole [Mirapex] 1 mg tablet 1 mg PO HS Rx Instructions: NEED TO CRUSH OR DISSOLVE MEDS TO SWALLOW. gabapentin 600 mg tablet 600 mg PO TID Rx Instructions: NEED TO CRUSH OR DISSOLVE MEDS TO SWALLOW. pravastatin 40 mg tablet 40 mg PO QAM Rx Instructions: NEED TO CRUSH OR DISSOLVE MEDS TO SWALLOW. diltiazem HCl 180 mg capsule,extended release 24hr 180 mg PO QAM Rx Instructions: NEED TO CRUSH OR DISSOLVE MEDS TO SWALLOW. sucralfate [Carafate] 1 gram tablet 1 g PO ACHS PRN (Reason: Indigestion) Rx Instructions: NEED TO CRUSH OR DISSOLVE MEDS TO SWALLOW. cyanocobalamin (vitamin B-12) [Vitamin B-12] 1,000 mcg Tablet 1,000 mcg PO QAM Rx Instructions: NEED TO CRUSH OR DISSOLVE MEDS TO SWALLOW. fenofibrate micronized 134 mg capsule 134 mg PO QPM Rx Instructions: NEED TO CRUSH OR DISSOLVE MEDS TO SWALLOW. lisinopril 40 mg tablet 40 mg PO QAM Rx Instructions: NEED TO CRUSH OR DISSOLVE MEDS TO SWALLOW. duloxetine [Cymbalta] 30 mg capsule,delayed release(DR/EC) 30 mg PO QAM Rx Instructions: TOTAL DOSE 90 MG--TAKES WITH 60 MG CAP. NEED TO CRUSH OR DISSOLVE MEDS TO SWALLOW. duloxetine 60 mg capsule,delayed release(DR/EC) 60 mg PO QAM Rx Instructions: TOTAL DOSE 90 MG--TAKES WITH 30 MG CAP. NEED TO CRUSH OR DISSOLVE MEDS TO SWALLOW. cholecalciferol (vitamin D3) [Vitamin D3] 25 mcg (1,000 unit) Tablet 25 mcg PO QAM Rx Instructions: NEED TO CRUSH OR DISSOLVE MEDS TO SWALLOW. famotidine 20 mg tablet 20 mg PO BID Qty: 14 0RF Rx Instructions: NEED TO CRUSH OR DISSOLVE MEDS TO SWALLOW. diclofenac sodium 1 % gel 2 g TOPICAL QID PRN (Reason: Pain) oxycodone-acetaminophen 5-325 mg Tablet 1 tab PO Q6H PRN (Reason: Pain) Rx Instructions: NEED TO CRUSH OR DISSOLVE MEDS TO SWALLOW. pantoprazole 40 mg tablet,delayed release (DR/EC) 40 mg PO BID Rx Instructions: NEED TO CRUSH OR DISSOLVE MEDS TO SWALLOW. albuterol sulfate 90 mcg/actuation HFA aerosol inhaler 2 puff INHALATION Q3H PRN (Reason: Shortness Of Breath) Anoro Ellipta 62.5-25 mcg/actuation blister with device 1 inh INHALATION QAM acetaminophen 325 mg Tablet 650 mg PO Q4H MDD 2-3 GRAMS/24 HOURS PRN (Reason: fever or pain) Qty: 30 0RF Rx Instructions: NEED TO CRUSH OR DISSOLVE MEDS TO SWALLOW. ondansetron HCl 4 mg Tablet 4 mg PO Q6H PRN (Reason: NAUSEA/VOMITING) Rx Instructions: NEED TO CRUSH OR DISSOLVE MEDS TO SWALLOW. Discharge Orders: Discharge Order (Routine); Ordered 09/12/22 Ordered By: Edel Zimmerman/Other Patient Handouts: Understanding Carbohydrates Admission Data Admit Date/Time: 09/09/22 16:08 Attending Provider: Mg Granda Admit Provider: Krystal Tena Primary Care Provider: Manny Bland Other Providers: Krystal Tena Other Interventions: Discharge Summary Assessment (RN) Last Done: 09/12/22 12:35 Coding Level of Care Code 53060 INP/OBS DISCH >30 MIN Diagnoses Aspiration pneumonia J69.0 Aspiration pneumonia type: unspecified Acute and chronic respiratory failure with hypoxia J96.21 Sepsis A41.9; R65.21; J96.01 Acute respiratory failure type: with hypoxia Sepsis acute organ dysfunction status: with acute organ dysfunction Sepsis type: sepsis due to unspecified organism Severe sepsis acute organ dysfunction type: acute respiratory failure Severe sepsis shock status: with septic shock Achalasia, esophageal K22.0 Headache R51.9 Diabetes mellitus type 2 in obese E11.69; E66.9 GERD (gastroesophageal reflux disease) K21.9 HTN (hypertension), benign I10 COPD (chronic obstructive pulmonary disease) J44.1 COPD type: COPD with acute exacerbation Chronic low back pain M54.5; G89.29
== END 2022-09-12 13:36 | disposition home or self-care (01) | DRG 871 ==
LOC: ED 12:42 → 3N 16:08 → SUATTDRO 16:08 → 3N 20:01

== ENCOUNTER 2023-06-12 13:52 | Inpatient (IN) ==
--- NOTE | 2023-06-12 14:28 | Emergency Department Note ---
Impression & Plan Pneumonia, Hypoxia, Hypomagnesemia, Acidosis, lactic ED Provider Note NAME: NICO STEPHENS AGE: 77 SEX: F : 1945 ARRIVES VIA: Walk-In INFORMANT: Patient, ED PROVIDER(S): Juan Hylton DO CHIEF COMPLAINT: Fever HPI: The patient is a 77-year-old female who presented to the emergency department for evaluation of fever. The patient has had similar episodes in the past with pneumonia. She only started having symptoms today and her family member was very concerned and brought her to the emergency department. She did not see a provider prior to coming to the emergency department. She has not been tested for the flu or COVID. The patient did not take any medication for fever. The patient does notice some nonspecific cough but no hemoptysis. ROS: See above HPI for pertinent positives & negatives. A total of 10 systems reviewed and were otherwise negative. PAST MEDICAL HISTORY: See Below PAST SURGICAL HISTORY: See Below FAMILY HISTORY: See Below SOCIAL HISTORY: See Below HOME MEDICATIONS: See Below ALLERGIES: See Below VITALS: See Below PHYSICAL EXAMINATION: GENERAL: Patient is awake alert in no acute distress patient is resting comfortably and showing no signs of anxiety EYES: The conjunctivae are clear. The pupils are round and reactive. EARS, NOSE, MOUTH AND THROAT: The nose is without any evidence of any deformity. NECK: The neck is nontender and supple. RESPIRATORY: Diminished breath sounds are noted in the right lung field. There is no tachypnea or conversational dyspnea. CARDIOVASCULAR: Regular rate and rhythm noted there no murmurs rubs or gallops normal S1 normal S2. GASTROINTESTINAL: The abdomen is soft. Abdomen is nontender. MUSCULOSKELETAL/EXTREMITIES: There is no evidence of gross deformity full range of motion is noted in the hips and shoulders. SKIN: There is no obvious evidence of any rash. There are no petechiae, pallor or cyanosis noted. NEUROLOGIC: Patient is awake alert and oriented x3 MEDICAL DECISION MAKING: The patient is a 77-year-old female who presented to the emergency department for an evaluation of difficulty breathing. The patient has a history of pneumonia as well as respiratory failure in the past. She was noted to have a cough as well as low-grade fever. Her family brought her to the emergency department for further evaluation because they know that she has had problems with severe pneumonia in the past. Patient was treated with IV fluids and IV antibiotics. She was also treated with IV magnesium replacement. I discussed patient's laboratory and radiographic studies with her. I discussed her condition with the on-call [facility] hospitalist. They have agreed to evaluate the patient in the emergency department for further management and disposition. Triage Nursing notes reviewed. Prior medical records reviewed Vital Signs: reviewed and remarkable for hypoxia. Differential diagnosis: Viral syndrome, otitis, pharyngitis, pneumonia, influenza, meningitis, urinary tract infection, sepsis, bacteremia, as well as other pathologies. ER treatment provided: See below Diagnostics interpreted by me: ECG: EKG was obtained in the emergency department. My interpretation is sinus tachycardia at 100 bpm. There is no ectopy. Poor R wave progression was noted. This was compared to a tracing from July 10, 2022. No changes were noted. Cardiac Monitoring: An order was placed for continuous cardiac monitoring. The monitor shows a rate of 88 bpm with sinus rhythm. Laboratory studies: As stated above and show below. Imaging studies: See below. Radiographic imaging was reviewed by myself Consultation(s): I discussed this case with Dr. Regalado Past Med/Surg History Medical History Pneumonia Hypoxia Acute and chronic respiratory failure with hypoxia Sepsis Headache History of esophageal dilatation Peripheral neuropathy Weight loss, unintentional Chronic obstructive pulmonary disease inhaler prn; O2 sats 90-94% per pt and granddaughter, they report qualifying walking test however that follow-up test was then normal, patient is not currently on supplemental oxygen, they deny recent walking desat test Sleep apnea unable to tolerate cpap Dysphagia Schatzki's ring Esophageal dysmotility Encounter for pre-operative examination Depression Current smoker Quit smoking 06/13/21 Obesity Chronic low back pain Restless leg syndrome Hyperlipidemia Diabetes mellitus type 2 in obese NIDDM GERD (gastroesophageal reflux disease) Peptic ulcer disease (~2017) bleeding ulcer HTN (hypertension), benign Nausea & vomiting anytime eats or drinks, per pt and granddaughter was thought to be d/t mucus from smoking as does not happen when not smoking during hospitalizations Surgical History History of cataract surgery bilateral S/P epidural steroid injection History of colonoscopy History of esophagogastroduodenoscopy (EGD) History of bilateral tubal ligation History of carpal tunnel release Left History of repair of rotator cuff Right History of lumbar fusion Family History Father Heart disease Brother Kidney disease Mother Gastric cancer Family/Other Testicular cancer Other No family history of adverse response to anesthesia Social History Smoking Status: Former smoker Tobacco Type: Cigarettes Age Started Using Tobacco: 11; Cigarettes Per Day: 1 pack; Second Hand Exposure: Yes; Do You Dip or Chew Tobacco: No; Hx Alcohol Use: No Hx Substance Use: No Preferred Language: Upper Sorbian Communication Ability: Effective Engine Head Repairer Required: No Beliefs That Will Affect Care: None marital status: / Current Living Situation: Family Current Living Situation Comment: Lives with grandson and son Feels Safe at Home: Yes Assistive Devices: Walker Allergies Allergies Allergy/AdvReac Type Severity Reaction Status Date / Time atorvastatin [From Lipitor] Allergy Intermediate Skin Rash Verified 06/12/23 16:04 morphine AdvReac Intermediate Nausea Verified 06/12/23 16:04 Home Meds Home Medications Medication Instructions Recorded Confirmed cholecalciferol (vitamin D3) 25 25 mcg PO QAM 05/03/20 06/12/23 mcg (1,000 unit) tablet (Vitamin D3) cyanocobalamin (vitamin B-12) 1,000 mcg PO QAM 05/03/20 06/12/23 1,000 mcg tablet (Vitamin B-12) diltiazem HCl 180 mg 180 mg PO QAM 05/03/20 06/12/23 capsule,extended release 24 hr duloxetine 30 mg capsule,delayed 30 mg PO QAM 05/03/20 06/12/23 release (Cymbalta) duloxetine 60 mg capsule,delayed 60 mg PO QAM 05/03/20 06/12/23 release gabapentin 600 mg tablet 600 mg PO TID 05/03/20 06/12/23 pravastatin 40 mg tablet 40 mg PO QAM 05/03/20 06/12/23 sucralfate 1 gram tablet (Carafate) 1 g PO ACHS PRN Indigestion 05/03/20 06/12/23 albuterol sulfate 90 mcg/actuation 2 puff inhalation Q3H PRN 11/08/20 06/12/23 aerosol inhaler Shortness Of Breath diclofenac sodium 1 % topical gel 2 g topical QID PRN Pain 11/16/20 06/12/23 oxycodone-acetaminophen 5 mg-325 1 tab PO Q6H PRN Pain 05/22/21 06/12/23 mg tablet ondansetron HCl 4 mg tablet 4 mg PO Q6H PRN NAUSEA/VOMITING 07/31/21 06/12/23 donepezil 5 mg tablet 5 mg PO DAILY 06/12/23 06/12/23 dulaglutide 0.75 mg/0.5 mL 0.75 mg subcut WK 06/12/23 06/12/23 subcutaneous pen injector (Trulicity) famotidine 40 mg tablet 40 mg PO HS 06/12/23 06/12/23 furosemide 20 mg tablet (Lasix) 20 mg PO DAILY PRN Edema 06/12/23 06/12/23 hydrochlorothiazide 25 mg tablet 25 mg PO DAILY 06/12/23 06/12/23 lisinopril 10 mg tablet 10 mg PO DAILY 06/12/23 06/12/23 metformin 500 mg tablet 1,000 mg PO BID 06/12/23 06/12/23 omeprazole 20 mg capsule,delayed 20 mg PO QAM 06/12/23 06/12/23 release ropinirole 1 mg tablet 1 mg PO HS 06/12/23 06/12/23 tizanidine 4 mg tablet 4 mg PO Q8H PRN MUSCLE SPASMS 06/12/23 06/12/23 trazodone 150 mg tablet 150 mg PO HS 06/12/23 06/12/23 Previous Rx's Medication Instructions Recorded acetaminophen 325 mg tablet 650 mg (2 x 325 mg) PO Q4H PRN 11/10/20 fever or pain #30 tabs Results & Data (ED) Vital Signs Vital Signs - 24 hr 06/12/23 14:15 06/12/23 14:31 06/12/23 14:51 Temperature 37.2 C Temperature Source Temporal Artery Scan Pulse Rate 101 H 101 H Pulse Rate [Apical] 93 H Respiratory Rate 22 18 Respiratory Effort / Characteristics Non-Labored Spontaneous Respiratory Depth Normal Blood Pressure 143/82 H Blood Pressure [Left Arm] Blood Pressure Mean 102 Blood Pressure Mean [Left Arm] Pulse Oximetry 89 L 96 Oxygen Delivery Method Nasal Cannula Nasal Cannula Oxygen Flow Rate 2 3 Sepsis Recent Fever Within 48 Hours No Sepsis New/Unexplained Change in Mental Status N/A Sepsis Action Taken by Nursing No Action Required 06/12/23 15:00 06/12/23 15:15 06/12/23 15:30 Temperature Temperature Source Pulse Rate Pulse Rate [Apical] 90 97 H 89 Respiratory Rate 18 20 20 Respiratory Effort / Characteristics Respiratory Depth Blood Pressure Blood Pressure [Left Arm] 153/87 H 144/98 H 110/80 Blood Pressure Mean Blood Pressure Mean [Left Arm] 109 113 90 Pulse Oximetry 96 98 96 Oxygen Delivery Method Nasal Cannula Nasal Cannula Nasal Cannula Oxygen Flow Rate 3 3 3 Sepsis Recent Fever Within 48 Hours Sepsis New/Unexplained Change in Mental Status Sepsis Action Taken by Nursing 06/12/23 15:45 06/12/23 17:00 Temperature Temperature Source Pulse Rate Pulse Rate [Apical] 88 76 Respiratory Rate 18 18 Respiratory Effort / Characteristics Respiratory Depth Blood Pressure Blood Pressure [Left Arm] 118/58 L Blood Pressure Mean Blood Pressure Mean [Left Arm] 78 Pulse Oximetry 98 96 Oxygen Delivery Method Nasal Cannula Nasal Cannula Oxygen Flow Rate 3 3 Sepsis Recent Fever Within 48 Hours Sepsis New/Unexplained Change in Mental Status Sepsis Action Taken by [facility] Medications Current Medication List: was personally reviewed by me Laboratory Data Attestation: I reviewed the patient's lab results. 06/12/23 14:38 06/12/23 14:38 Lab Results 06/12/23 06/12/23 06/12/23 Range/Units 14:38 14:46 14:54 WBC 15.64 H (4.8-10.8) K/ul RBC 4.35 (4.20-5.40) M/uL Hgb 12.4 (12.0-16.0) g/dl Hct 39.6 (37.0-47.0) % MCV 91.0 (80.0-100.0) fL MCH 28.5 (25.0-34.0) pg MCHC 31.3 L (32.0-36.0) g/dL RDW Std Deviation 43.0 (36.4-46.3) fL RDW Coeff of [place] 13.1 (11.5-14.5) % Plt Count 265 (130-400) K/uL MPV 9.8 (9.4-12.4) fL Immature Gran % (Auto) 0.8 % Neut % (Auto) 87.1 % Lymph % (Auto) 4.2 % [place] % (Auto) 7.0 % Eos % (Auto) 0.5 % Baso % (Auto) 0.4 % Neut # (Auto) 13.63 H (1.40-6.50) K/uL Lymph # (Auto) 0.66 L (1.20-3.40) K/uL [place] # (Auto) 1.09 H (0.11-0.59) K/uL Eos # (Auto) 0.08 (0.00-0.50) K/uL Baso # (Auto) 0.06 (0.00-0.20) K/uL Immature Gran # (Auto) 0.12 (0.01-0.20) K/uL PT 10.5 (9.0-12.0) Seconds INR 1.0 (0.9-1.1) APTT 21 (21-31) Seconds PTT Ratio 0.7 VBG pH (7.36-7.41) VBG pCO2 (38-50) mmHg VBG pO2 mmHg VBG HCO3 mmol/L VBG O2 Saturation % VBG Base Excess mEq/L Sodium 136 (136-145) mmol/L Potassium 5.1 (3.5-5.1) mmol/L Chloride 98 (98-107) mmol/L Carbon Dioxide 29 (21-32) mmol/L Anion Gap 9 (3-11) BUN 17 (6-23) mg/dl Creatinine 0.88 (0.6-1.2) mg/dl Est Cr Clr Drug Dosing 54.8 ml/min Est GFR ( Amer) 72.9 ml/min Est GFR (Non-Af Amer) 62.9 ml/min BUN/Creatinine Ratio 19.3 (10-20) Glucose 143 H (70-99(Fasting)) mg/dl Lactate 3.7 H* (0.4-2.0) mmol/L Calcium 9.5 (8.6-10.3) mg/dl Magnesium 1.5 L (1.7-2.4) mg/dl Total Bilirubin 0.4 (0.2-1.0) mg/dl Direct Bilirubin TNP AST 19 (13-39) U/L ALT 16 (7-52) U/L Alkaline Phosphatase 52 (34-104) U/L Troponin I High Sens 8.6 (0-14) pg/ml Total Protein 7.4 (6.0-8.3) gm/dl Albumin 4.2 (3.4-5.0) gm/dl Procalcitonin 0.03 (0-0.5) ng/ml Urine Color Urine Appearance (Clear) Urine pH (4.5-7.5) Ur Specific [place] (1.000-1.030) Urine Protein (Negative) Urine Glucose (UA) (Negative) Urine Ketones (Negative) Urine Blood (Negative) Urine Nitrite (Negative) Urine Bilirubin (Negative) Urine Urobilinogen (Negative) Ur Leukocyte Esterase (Negative) Urine WBC (Auto) (0-5) /hpf Urine RBC (Auto) (0-4) /hpf U Hyaline Cast (Auto) (0-5) /lpf U Epithel Cells (Auto) (0-5) /lpf Urine Bacteria (Auto) (Negative) SARS-CoV-2 (PCR) NEGATIVE (Negative) Influenza Type A (PCR) Negative (Neg) Influenza Type B (PCR) Negative (Neg) RSV (RT-PCR) Negative (Neg) 06/12/23 06/12/23 06/12/23 Range/Units 15:04 15:29 15:46 WBC (4.8-10.8) K/ul RBC (4.20-5.40) M/uL Hgb (12.0-16.0) g/dl Hct (37.0-47.0) % MCV (80.0-100.0) fL MCH (25.0-34.0) pg MCHC (32.0-36.0) g/dL RDW Std Deviation (36.4-46.3) fL RDW Coeff of [place] (11.5-14.5) % Plt Count (130-400) K/uL MPV (9.4-12.4) fL Immature Gran % (Auto) % Neut % (Auto) % Lymph % (Auto) % [place] % (Auto) % Eos % (Auto) % Baso % (Auto) % Neut # (Auto) (1.40-6.50) K/uL Lymph # (Auto) (1.20-3.40) K/uL [place] # (Auto) (0.11-0.59) K/uL Eos # (Auto) (0.00-0.50) K/uL Baso # (Auto) (0.00-0.20) K/uL Immature Gran # (Auto) (0.01-0.20) K/uL PT (9.0-12.0) Seconds INR (0.9-1.1) APTT (21-31) Seconds PTT Ratio VBG pH 7.40 (7.36-7.41) VBG pCO2 51 H (38-50) mmHg VBG pO2 49 mmHg VBG HCO3 32 mmol/L VBG O2 Saturation 84.1 % VBG Base Excess 5.5 mEq/L Sodium (136-145) mmol/L Potassium (3.5-5.1) mmol/L Chloride (98-107) mmol/L Carbon Dioxide (21-32) mmol/L Anion Gap (3-11) BUN (6-23) mg/dl Creatinine (0.6-1.2) mg/dl Est Cr Clr Drug Dosing ml/min Est GFR ( Amer) ml/min Est GFR (Non-Af Amer) ml/min BUN/Creatinine Ratio (10-20) Glucose (70-99(Fasting)) mg/dl Lactate (0.4-2.0) mmol/L Calcium (8.6-10.3) mg/dl Magnesium (1.7-2.4) mg/dl Total Bilirubin (0.2-1.0) mg/dl Direct Bilirubin 0.1 AST (13-39) U/L ALT (7-52) U/L Alkaline Phosphatase (34-104) U/L Troponin I High Sens (0-14) pg/ml Total Protein (6.0-8.3) gm/dl Albumin (3.4-5.0) gm/dl Procalcitonin (0-0.5) ng/ml Urine Color Yellow Urine Appearance Clear (Clear) Urine pH 7.5 (4.5-7.5) Ur Specific [place] 1.017 (1.000-1.030) Urine Protein 2+ H (Negative) Urine Glucose (UA) Negative (Negative) Urine Ketones Negative (Negative) Urine Blood Negative (Negative) Urine Nitrite Negative (Negative) Urine Bilirubin Negative (Negative) Urine Urobilinogen Negative (Negative) Ur Leukocyte Esterase Negative (Negative) Urine WBC (Auto) 1-5 (0-5) /hpf Urine RBC (Auto) 0-4 (0-4) /hpf U Hyaline Cast (Auto) 0 (0-5) /lpf U Epithel Cells (Auto) >30 H (0-5) /lpf Urine Bacteria (Auto) Negative (Negative) SARS-CoV-2 (PCR) (Negative) Influenza Type A (PCR) (Neg) Influenza Type B (PCR) (Neg) RSV (RT-PCR) (Neg) 06/12/23 Range/Units 16:54 WBC (4.8-10.8) K/ul RBC (4.20-5.40) M/uL Hgb (12.0-16.0) g/dl Hct (37.0-47.0) % MCV (80.0-100.0) fL MCH (25.0-34.0) pg MCHC (32.0-36.0) g/dL RDW Std Deviation (36.4-46.3) fL RDW Coeff of [place] (11.5-14.5) % Plt Count (130-400) K/uL MPV (9.4-12.4) fL Immature Gran % (Auto) % Neut % (Auto) % Lymph % (Auto) % [place] % (Auto) % Eos % (Auto) % Baso % (Auto) % Neut # (Auto) (1.40-6.50) K/uL Lymph # (Auto) (1.20-3.40) K/uL [place] # (Auto) (0.11-0.59) K/uL Eos # (Auto) (0.00-0.50) K/uL Baso # (Auto) (0.00-0.20) K/uL Immature Gran # (Auto) (0.01-0.20) K/uL PT (9.0-12.0) Seconds INR (0.9-1.1) APTT (21-31) Seconds PTT Ratio VBG pH (7.36-7.41) VBG pCO2 (38-50) mmHg VBG pO2 mmHg VBG HCO3 mmol/L VBG O2 Saturation % VBG Base Excess mEq/L Sodium (136-145) mmol/L Potassium (3.5-5.1) mmol/L Chloride (98-107) mmol/L Carbon Dioxide (21-32) mmol/L Anion Gap (3-11) BUN (6-23) mg/dl Creatinine (0.6-1.2) mg/dl Est Cr Clr Drug Dosing ml/min Est GFR ( Amer) ml/min Est GFR (Non-Af Amer) ml/min BUN/Creatinine Ratio (10-20) Glucose (70-99(Fasting)) mg/dl Lactate 3.2 H* (0.4-2.0) mmol/L Calcium (8.6-10.3) mg/dl Magnesium (1.7-2.4) mg/dl Total Bilirubin (0.2-1.0) mg/dl Direct Bilirubin AST (13-39) U/L ALT (7-52) U/L Alkaline Phosphatase (34-104) U/L Troponin I High Sens (0-14) pg/ml Total Protein (6.0-8.3) gm/dl Albumin (3.4-5.0) gm/dl Procalcitonin (0-0.5) ng/ml Urine Color Urine Appearance (Clear) Urine pH (4.5-7.5) Ur Specific [place] (1.000-1.030) Urine Protein (Negative) Urine Glucose (UA) (Negative) Urine Ketones (Negative) Urine Blood (Negative) Urine Nitrite (Negative) Urine Bilirubin (Negative) Urine Urobilinogen (Negative) Ur Leukocyte Esterase (Negative) Urine WBC (Auto) (0-5) /hpf Urine RBC (Auto) (0-4) /hpf U Hyaline Cast (Auto) (0-5) /lpf U Epithel Cells (Auto) (0-5) /lpf Urine Bacteria (Auto) (Negative) SARS-CoV-2 (PCR) (Negative) Influenza Type A (PCR) (Neg) Influenza Type B (PCR) (Neg) RSV (RT-PCR) (Neg) Administered Medications Sodium Chloride (Nss) 1,000 mls @ 999 mls/hr IV .Q1H1M ONE Stop: 06/12/23 18:36 Last Admin: 06/12/23 17:47 Dose: 999 mls/hr Documented By: AEF Sodium Chloride (Nss) 500 mls @ 999 mls/hr IV .Q31M ONE Stop: 06/12/23 18:06 Last Admin: 06/12/23 17:47 Dose: 999 mls/hr Documented By: AEF Discontinued Medications Acetaminophen (Acetaminophen 325 Mg Tab) 650 mg PO NOW STA Stop: 06/12/23 14:25 Last Admin: 06/12/23 14:42 Dose: 650 mg Documented By: AEF Sodium Chloride (Nss) 1,000 mls @ 999 mls/hr IV .Q1H1M ONE Stop: 06/12/23 16:10 Last Infusion: 06/12/23 16:51 Dose: Infused Documented By: Admin: 06/12/23 15:15 Dose: 999 mls/hr Documented By: AEF Ceftriaxone Sodium (Rocephin) 2,000 mg in 50 mls @ 100 mls/hr IV NOW STA Stop: 06/12/23 15:39 Last Infusion: 06/12/23 15:44 Dose: Infused Documented By: Admin: 06/12/23 15:16 Dose: 100 mls/hr Documented By: AEF Magnesium Sulfate/Dextrose (Magnesium Sulfate / D5w) 1 gm in 100 mls @ 100 mls/hr IV NOW STA Stop: 06/12/23 16:32 Last Infusion: 06/12/23 16:51 Dose: Infused Documented By: Admin: 06/12/23 15:44 Dose: 100 mls/hr Documented By: AEF Imaging Data Attestation: I personally reviewed and interpreted this imaging study as follows: My Impression: 1 view chest x-ray of the lungs was obtained. My interpretation is infiltrate at the right base, final report below. Radiologist's Impression: Chest X-Ray 06/12/23 14:24 XR chest 1V portable HISTORY: Sepsis COMPARISON: Chest 09/09/2022. FINDINGS: No pneumothorax. The heart remains enlarged. Patchy bibasilar densities most pronounced on the right. No evidence for pulmonary edema. Lumbar spinal fusion hardware is partially visualized. Calcified granuloma within the right lower lobe. IMPRESSION: Patchy bibasilar densities most pronounced on the right. This favors a pneumonia and could be due to prior aspiration. ACT 112: Negative or not required by law. Electronically signed by: Alvin Mcmillan M.D. 06/12/2023 2:47 PM Discharge Plan Visit Data Chief Complaint: Illness Stated Complaint: POSS PNEUMONIA ED Provider: Juan Hylton Discharge Problem: Pneumonia, Hypoxia, Hypomagnesemia, Acidosis, lactic Patient Disposition: Being Evaluated by Hospitalist Forms Stand Alone Forms: My [facility] Prescriptions Prescriptions: No Action gabapentin 600 mg tablet 600 mg PO TID Rx Instructions: NEED TO CRUSH OR DISSOLVE MEDS TO SWALLOW. pravastatin 40 mg tablet 40 mg PO QAM Rx Instructions: NEED TO CRUSH OR DISSOLVE MEDS TO SWALLOW. diltiazem HCl 180 mg capsule,extended release 24hr 180 mg PO QAM Rx Instructions: NEED TO CRUSH OR DISSOLVE MEDS TO SWALLOW. sucralfate [Carafate] 1 gram tablet 1 g PO ACHS PRN (Reason: Indigestion) Rx Instructions: NEED TO CRUSH OR DISSOLVE MEDS TO SWALLOW. cyanocobalamin (vitamin B-12) [Vitamin B-12] 1,000 mcg Tablet 1,000 mcg PO QAM Rx Instructions: NEED TO CRUSH OR DISSOLVE MEDS TO SWALLOW. duloxetine [Cymbalta] 30 mg capsule,delayed release(DR/EC) 30 mg PO QAM Rx Instructions: TOTAL DOSE 90 MG--TAKES WITH 60 MG CAP. NEED TO CRUSH OR DISSOLVE MEDS TO SWALLOW. duloxetine 60 mg capsule,delayed release(DR/EC) 60 mg PO QAM Rx Instructions: TOTAL DOSE 90 MG--TAKES WITH 30 MG CAP. NEED TO CRUSH OR DISSOLVE MEDS TO SWALLOW. cholecalciferol (vitamin D3) [Vitamin D3] 25 mcg (1,000 unit) Tablet 25 mcg PO QAM Rx Instructions: NEED TO CRUSH OR DISSOLVE MEDS TO SWALLOW. diclofenac sodium 1 % gel 2 g TOPICAL QID PRN (Reason: Pain) oxycodone-acetaminophen 5-325 mg Tablet 1 tab PO Q6H PRN (Reason: Pain) Rx Instructions: NEED TO CRUSH OR DISSOLVE MEDS TO SWALLOW. PER PT "USUALLY TAKE 2 TABS AT HS FOR PAIN/SLEEP". albuterol sulfate 90 mcg/actuation HFA aerosol inhaler 2 puff INHALATION Q3H PRN (Reason: Shortness Of Breath) acetaminophen 325 mg Tablet 650 mg PO Q4H MDD 2-3 GRAMS/24 HOURS PRN (Reason: fever or pain) Qty: 30 0RF Rx Instructions: NEED TO CRUSH OR DISSOLVE MEDS TO SWALLOW. ondansetron HCl 4 mg Tablet 4 mg PO Q6H PRN (Reason: NAUSEA/VOMITING) Rx Instructions: NEED TO CRUSH OR DISSOLVE MEDS TO SWALLOW. famotidine 40 mg tablet 40 mg PO HS lisinopril 10 mg Tablet 10 mg PO DAILY Rx Instructions: NEED TO CRUSH OR DISSOLVE MEDS TO SWALLOW. metformin 500 mg Tablet 1,000 mg PO BID Rx Instructions: NEED TO CRUSH OR DISSOLVE MEDS TO SWALLOW. ropinirole 1 mg tablet 1 mg PO HS Rx Instructions: NEED TO CRUSH OR DISSOLVE MEDS TO SWALLOW. donepezil 5 mg Tablet 5 mg PO DAILY Rx Instructions: NEED TO CRUSH OR DISSOLVE MEDS TO SWALLOW. tizanidine 4 mg tablet 4 mg PO Q8H PRN (Reason: MUSCLE SPASMS) trazodone 150 mg tablet 150 mg PO HS Rx Instructions: NEED TO CRUSH OR DISSOLVE MEDS TO SWALLOW. omeprazole 20 mg capsule,delayed release(DR/EC) 20 mg PO QAM Rx Instructions: NEED TO CRUSH OR DISSOLVE MEDS TO SWALLOW. hydrochlorothiazide 25 mg tablet 25 mg PO DAILY Rx Instructions: NEED TO CRUSH OR DISSOLVE MEDS TO SWALLOW. furosemide [Lasix] 20 mg Tablet 20 mg PO DAILY PRN (Reason: Edema) Rx Instructions: NEED TO CRUSH OR DISSOLVE MEDS TO SWALLOW. Trulicity 0.75 mg/0.5 mL pen injector 0.75 mg SUBCUT WK Rx Instructions: MONDAYS Referrals Referrals: Manny Bland DO [Primary Care Provider] - Discharge Problem: Pneumonia Qualifiers: Pneumonia type: due to unspecified organism Laterality: unspecified laterality Lung location: unspecified part of lung Qualified Code(s): J18.9 - Pneumonia, unspecified organism
[2023-06-12] MEDS: ACETAMINOPHEN 325 MG TAB PO STA (14:42)
--- NOTE | 2023-06-12 14:50 | XRay Report ---
XR chest 1V portable HISTORY: Sepsis COMPARISON: Chest 09/09/2022. FINDINGS: No pneumothorax. The heart remains enlarged. Patchy bibasilar densities most pronounced on the right. No evidence for pulmonary edema. Lumbar spinal fusion hardware is partially visualized. Ca lcified granuloma within the right lower lobe. IMPRESSION: Patchy bibasilar densities most pronounced on the right. This favors a pneumonia and could be due to prior aspiration. ACT 112: Negative or not required by law. Electronically signed by: Alvin Mcmillan M.D. 06/12/2023 2:47 PM
[2023-06-12 14:58] LABS: Basophils # (auto) 0.06 K/uL (0.00-0.20); Basophils % (auto) 0.4 %; Eosinophils # (auto) 0.08 K/uL (0.00-0.50); Eosinophils % (auto) 0.5 %; Hematocrit (blood only) 39.6 % (37.0-47.0); Hemoglobin 12.4 g/dl (12.0-16.0); Immature Granulocytes # (auto) 0.12 K/uL (0.01-0.20); Immature Granulocytes % (auto) 0.8 %; Lymphocytes # (auto) 0.66 K/uL (1.20-3.40); Lymphocytes % (auto) 4.2 %; Mean Corpuscular Hemoglobin 28.5 pg (25.0-34.0); Mean Corpuscular Hgb Conc 31.3 g/dL (32.0-36.0); Mean Platelet Volume 9.8 fL (9.4-12.4); Monocytes # (auto) 1.09 K/uL (0.11-0.59); Neutrophils # (auto) 13.63 K/uL (1.40-6.50); Neutrophils % (auto) 87.1 %; Platelet Count 265 K/uL (130-400); RDW Coefficient of Variation 13.1 % (11.5-14.5); Red Blood Count 4.35 M/uL (4.20-5.40); White Blood Count 15.64 K/ul (4.8-10.8)
[2023-06-12] MEDS: SODIUM CHLORIDE 0.9% 1,000 ML IV ONE ×2 (15:15→17:47)
[2023-06-12] MEDS: cefTRIAXone SODIUM 2,000 MG/50 ML BAG IV STA (15:16)
[2023-06-12 15:18] LABS: Base Excess VBG 5.5 mEq/L; HCO3 VBG 32 mmol/L; Oxygen Saturation VBG 84.1 %; PCO2 VBG 51 mmHg (38-50); PO2 VBG 49 mmHg
[2023-06-12 15:21] LABS: Alanine Aminotransferase 16 U/L (7-52); Albumin Level 4.2 gm/dl (3.4-5.0); Alkaline Phosphatase 52 U/L (34-104); Anion Gap 9 (3-11); Aspartate Aminotransferase 19 U/L (13-39); BUN Creatinine Ratio 19.3 (10-20); Bilirubin,Total 0.4 mg/dl (0.2-1.0); Blood Urea Nitrogen 17 mg/dl (6-23); Calcium 9.5 mg/dl (8.6-10.3); Carbon Dioxide 29 mmol/L (21-32); Chloride 98 mmol/L (98-107); Creatinine Clr Calc Pharmacy 54.8 ml/min; Est GFR (African American) 72.9 ml/min; Est GFR (Non-African American) 62.9 ml/min; Glucose 143 mg/dl (70-99(Fasting)); Magnesium 1.5 mg/dl (1.7-2.4); Potassium 5.1 mmol/L (3.5-5.1); Sodium 136 mmol/L (136-145); Total Protein 7.4 gm/dl (6.0-8.3); Troponin I High Sensitivity 8.6 pg/ml (0-14)
[2023-06-12 15:24] LABS: Partial Thromboplastin Ratio 0.7; Partial Thromboplastin Time 21 Seconds (21-31); Prothrombin Time 10.5 Seconds (9.0-12.0)
[2023-06-12 15:34] LABS: Influenza A virus by PCR Negative (Neg); Influenza B virus by PCR Negative (Neg); RSV by PCR Negative (Neg); SARS CoV2 RNA(COVID-19) Ceph NEGATIVE (Negative)
[2023-06-12] MEDS: MAGNESIUM SULFATE / D5W 1 GM/100 ML BAG IV STA (15:44)
[2023-06-12 16:02] LABS: Appearance Urine Clear (Clear); Bacteria Urine Automated Negative (Negative); Bilirubin Urine Negative (Negative); Blood Urine Negative (Negative); Cast Urine Automated 0 /lpf (0-5); Color Urine Yellow; Epithelial Cell Urine Auto >30 /lpf (0-5); Glucose Urine UA Negative (Negative); Ketones Urine Negative (Negative); Leukocyte Esterase Urine Negative (Negative); Nitrite Urine Negative (Negative); RBC Urine Automated 0-4 /hpf (0-4); Specific Gravity Urine 1.017 (1.000-1.030); Urobilinogen Urine Negative (Negative); pH Urine 7.5 (4.5-7.5)
[2023-06-12 16:03] LABS: Protein Urine 2+ (Negative)
--- NOTE | 2023-06-12 16:38 | History & Physical Report ---
Date of Service June 12, 2023 Assessment & Plan (1) Aspiration pneumonia: Plan: Noncompliant with aspiration recommendations s/p Myotomy with Fundoplication in July 2021 Repeat SLT consult - if no oropharyngeal dysphasia consider barium swallow to assess esophageal dysphagia given prior achalasia Unasyn 3g IV q6h NPO pending SLT consult (2) Hypoxia: Plan: Aim O2 sats > 90% (3) Sepsis: Plan: Lactate improving although suspect this is more of a hypoxia rather than fluid issue as she is not hypotensive or tachycardic. Continue slow IV fluids overnight (4) Hypomagnesemia: Plan: Mg sulfate 3g IV, repeat in AM (5) SHELDON on CPAP: Plan: Not on CPAP at home, will trial CPAP here HS (6) Diabetes mellitus type 2 in obese: Plan: HbA1c 8.4 in June 2021, will repeat with a.m. labs Continue metformin NovoLog for correction only: --Goal BSG Range: Low 110 mg/dL, High 140 mg/dL --Correction Factor: 50 mg/dL/unit --Carbohydrate ratio = no carb coverage --BSGs ACHS if eating, q6h if npo (7) GERD (gastroesophageal reflux disease): Plan: Switch omeprazole to pantoprazole per hospital formulary (8) HTN (hypertension), benign: Plan: Continue lisinopril, diltiazem. Hold hydrochlorothiazide while NPO. (9) Restless leg syndrome: Plan: Continue ropinirole Plan VTE prophylaxis - Lovenox 40 mg subcu daily Diet - n.p.o. pending BROADCAST OPERATIONS DIRECTOR consult Disposition - admit to [facility] Admission and Anticipated Discharge Date Admission Date: June 12, 2023 History of Present Illness Chief Complaint: Headache, generalized weakness, shortness of breath, cough Primary Care Provider: Manny Bland DO Silvia Church is a 77-year-old female who presents to the ER with sudden onset headache, weakness, cough, shortness of breath. She has a complex history of esophageal achalasia s/p s/p Myotomy with Fundoplication in July 2021 and have been doing well since then with only 1 episode of aspiration pneumonia in August 2022. She reports feeling her normal self yesterday and last ate food last night. She did not have anything to eat or drink today. She usually sleeps in the mornings and approximately 1 PM today since she became suddenly sick with chills, bilateral lower extremity weakness, coughing up green sputum, headache and very short of breath. Given history of recurrent aspiration pneumonia her daughter called EMS and she was brought in by ambulance. Allergies Allergy/AdvReac Type Severity Reaction Status Date / Time atorvastatin [From Lipitor] Allergy Intermediate Skin Rash Verified 06/12/23 16:04 morphine AdvReac Intermediate Nausea Verified 06/12/23 16:04 Home Medications Medication Instructions Recorded Confirmed Type cholecalciferol (vitamin D3) 25 25 mcg PO QAM 05/03/20 06/12/23 History mcg (1,000 unit) tablet (Vitamin D3) cyanocobalamin (vitamin B-12) 1,000 mcg PO QAM 05/03/20 06/12/23 History 1,000 mcg tablet (Vitamin B-12) diltiazem HCl 180 mg 180 mg PO QAM 05/03/20 06/12/23 History capsule,extended release 24 hr duloxetine 30 mg capsule,delayed 30 mg PO QAM 05/03/20 06/12/23 History release (Cymbalta) duloxetine 60 mg capsule,delayed 60 mg PO QAM 05/03/20 06/12/23 History release gabapentin 600 mg tablet 600 mg PO TID 05/03/20 06/12/23 History pravastatin 40 mg tablet 40 mg PO QAM 05/03/20 06/12/23 History sucralfate 1 gram tablet (Carafate) 1 g PO ACHS PRN Indigestion 05/03/20 06/12/23 History albuterol sulfate 90 mcg/actuation 2 puff inhalation Q3H PRN 11/08/20 06/12/23 History aerosol inhaler Shortness Of Breath acetaminophen 325 mg tablet 650 mg (2 x 325 mg) PO Q4H PRN 11/10/20 06/12/23 Rx fever or pain #30 tabs diclofenac sodium 1 % topical gel 2 g topical QID PRN Pain 11/16/20 06/12/23 History oxycodone-acetaminophen 5 mg-325 1 tab PO Q6H PRN Pain 05/22/21 06/12/23 History mg tablet ondansetron HCl 4 mg tablet 4 mg PO Q6H PRN NAUSEA/VOMITING 07/31/21 06/12/23 History donepezil 5 mg tablet 5 mg PO DAILY 06/12/23 06/12/23 History dulaglutide 0.75 mg/0.5 mL 0.75 mg subcut WK 06/12/23 06/12/23 History subcutaneous pen injector (Trulicity) famotidine 40 mg tablet 40 mg PO HS 06/12/23 06/12/23 History furosemide 20 mg tablet (Lasix) 20 mg PO DAILY PRN Edema 06/12/23 06/12/23 History hydrochlorothiazide 25 mg tablet 25 mg PO DAILY 06/12/23 06/12/23 History lisinopril 10 mg tablet 10 mg PO DAILY 06/12/23 06/12/23 History metformin 500 mg tablet 1,000 mg PO BID 06/12/23 06/12/23 History omeprazole 20 mg capsule,delayed 20 mg PO QAM 06/12/23 06/12/23 History release ropinirole 1 mg tablet 1 mg PO HS 06/12/23 06/12/23 History tizanidine 4 mg tablet 4 mg PO Q8H PRN MUSCLE SPASMS 06/12/23 06/12/23 History trazodone 150 mg tablet 150 mg PO HS 06/12/23 06/12/23 History Past Med/Surg History Medical History Pneumonia Hypoxia Acute and chronic respiratory failure with hypoxia Sepsis Headache History of esophageal dilatation Peripheral neuropathy Weight loss, unintentional Chronic obstructive pulmonary disease inhaler prn; O2 sats 90-94% per pt and granddaughter, they report qualifying walking test however that follow-up test was then normal, patient is not currently on supplemental oxygen, they deny recent walking desat test Sleep apnea unable to tolerate cpap Dysphagia Schatzki's ring Esophageal dysmotility Encounter for pre-operative examination Depression Current smoker Quit smoking 06/13/21 Obesity Chronic low back pain Restless leg syndrome Hyperlipidemia Diabetes mellitus type 2 in obese NIDDM GERD (gastroesophageal reflux disease) Peptic ulcer disease (~2017) bleeding ulcer HTN (hypertension), benign Nausea & vomiting anytime eats or drinks, per pt and granddaughter was thought to be d/t mucus from smoking as does not happen when not smoking during hospitalizations Surgical History History of cataract surgery bilateral S/P epidural steroid injection History of colonoscopy History of esophagogastroduodenoscopy (EGD) History of bilateral tubal ligation History of carpal tunnel release Left History of repair of rotator cuff Right History of lumbar fusion Family History Father Heart disease Brother Kidney disease Mother Gastric cancer Family/Other Testicular cancer Other No family history of adverse response to anesthesia Social History Smoking Status: Former smoker Tobacco Type: Cigarettes Age Started Using Tobacco: 11; Cigarettes Per Day: 1 pack; Second Hand Exposure: No; Do You Dip or Chew Tobacco: No; Tobacco Cessation Education Requested by Patient: No Hx Alcohol Use: No Hx Substance Use: No Preferred Language: Jamaican Communication Ability: Effective Java Software Developer Required: No Beliefs That Will Affect Care: None marital status: / Current Living Situation: Family Current Living Situation Comment: Lives with grandson and son Other Information That Helps Us Care for You: No Feels Safe at Home: Yes Safety Concerns: Feels Safe At This Time Assistive Devices: Walker Review of Systems Review of Systems: All systems reviewed & are unremarkable except as noted in HPI & below Physical Exam Constitutional: WD/WN, vitals as above Eyes: + anicteric sclerae; normal pupil size ENMT: external ear and nose normal, oropharynx normal Respiratory: normal respiratory effort; no respiratory distress Auscultation: + crackles (bibasal); breath sounds present, no diminished lung sounds, no rales, no rhonchi and no wheezes Cardiovascular: RRR, no murmur, no edema Gastrointestinal (Abdomen): normal bowel sounds, soft, nontender, no hepatosplenomegaly Musculoskeletal: no cyanosis or clubbing, extremities motor strength 5/5 Skin: no rashes, warm and dry Neurologic: moves all extremities and awake; not confused Psychiatric: A+Ox3, euthymic affect Genitourinary: no CVA tenderness Results & Data Results & Data Vital Signs (Past 12 Hours) Vital Signs Temp Pulse Pulse Resp BP BP Pulse Ox 06/12/23 15:45 88 18 98 06/12/23 15:30 89 20 110/80 96 06/12/23 15:15 97 H 20 144/98 H 98 06/12/23 15:00 90 18 153/87 H 96 06/12/23 14:51 93 H 18 96 06/12/23 14:31 101 H 06/12/23 14:15 37.2 C 101 H 22 143/82 H 89 L O2 Del Method O2 Flow Rate 06/12/23 15:45 Nasal Cannula 3 06/12/23 15:30 Nasal Cannula 3 06/12/23 15:15 Nasal Cannula 3 06/12/23 15:00 Nasal Cannula 3 06/12/23 14:51 Nasal Cannula 3 06/12/23 14:31 06/12/23 14:15 Nasal Cannula 2 Laboratory Results Abnormal lab results 06/12/23 06/12/23 06/12/23 Range/Units 14:38 14:46 15:04 WBC 15.64 H (4.8-10.8) K/ul MCHC 31.3 L (32.0-36.0) g/dL Neut # (Auto) 13.63 H (1.40-6.50) K/uL Lymph # (Auto) 0.66 L (1.20-3.40) K/uL Long # (Auto) 1.09 H (0.11-0.59) K/uL VBG pCO2 51 H (38-50) mmHg Glucose 143 H (70-99(Fasting)) mg/dl Lactate 3.7 H* (0.4-2.0) mmol/L Magnesium 1.5 L (1.7-2.4) mg/dl Urine Protein (Negative) U Epithel Cells (Auto) (0-5) /lpf 06/12/23 Range/Units 15:46 WBC (4.8-10.8) K/ul MCHC (32.0-36.0) g/dL Neut # (Auto) (1.40-6.50) K/uL Lymph # (Auto) (1.20-3.40) K/uL Long # (Auto) (0.11-0.59) K/uL VBG pCO2 (38-50) mmHg Glucose (70-99(Fasting)) mg/dl Lactate (0.4-2.0) mmol/L Magnesium (1.7-2.4) mg/dl Urine Protein 2+ H (Negative) U Epithel Cells (Auto) >30 H (0-5) /lpf Diagnostic Findings XR chest 1V portable HISTORY: Sepsis COMPARISON: Chest 09/09/2022. FINDINGS: No pneumothorax. The heart remains enlarged. Patchy bibasilar densities most pronounced on the right. No evidence for pulmonary edema. Lumbar spinal fusion hardware is partially visualized. Calcified granuloma within the right lower lobe. IMPRESSION: Patchy bibasilar densities most pronounced on the right. This favors a pneumonia and could be due to prior aspiration. Medications Administered ER medications given: Acetaminophen 650 mg oral Normal saline 1 L bolus Ceftriaxone 2 g IV Magnesium sulfate 1 g IV ECG Rate (beats per minute): 100 Rhythm: normal sinus Findings: + left axis deviation Comparison ECG Date: from (September 09, 2022) Change: the following changes noted (Criteria for anterior infarct no longer present) Code Status & VTE Plan Code Status DNR/DNI VTE Prophylaxis Plan VTE Prophylaxis will be ordered: Yes PG Care Time/CCT Total # of Minutes Spent Total Time Spent with Patient: Total time spent is greater than 50% in coordination of care (as documented) at patient's floor/unit and/or counseling patient: Coding Level of Care Code 22737 INT INP/OBS CARE 3/75MIN Diagnoses Aspiration pneumonia J69.0 Aspiration pneumonia type: unspecified Hypoxia R09.02 Sepsis A41.9 Hypomagnesemia E83.42 SHELDON on CPAP G47.33; Z99.89 Diabetes mellitus type 2 in obese E11.69; E66.9 GERD (gastroesophageal reflux disease) K21.9 HTN (hypertension), benign I10 Restless leg syndrome G25.81 (1) Aspiration pneumonia Aspiration pneumonia type: unspecified
[2023-06-12] MEDS: SODIUM CHLORIDE 0.9% 500 ML IV ONE (17:47)
[2023-06-12] MEDS: oxyCODONE/ACETAMINOPHEN 5mg/325mg TAB PO PRN (19:33)
[2023-06-12] MEDS: AMPICILLIN/SULBACTAM SOD 3,000 MG in SODIUM CHLOR 0.9% MINI-B 100 ML IV SCH (19:33)
[2023-06-12] MEDS ORDERED: CARBOHYDRATES FOR HYPOGLYCEMIA PO PRN (20:11)
[2023-06-12] MEDS ORDERED: GLUCOSE 40% GEL 15 GM TUBE PO PRN (20:11)
[2023-06-12] MEDS ORDERED: GLUCOSE 10 TAB/TUBE PO PRN (20:11)
[2023-06-12] MEDS ORDERED: DEXTROSE 50% 50 ML SYRINGE IV PRN (20:11)
[2023-06-12] MEDS ORDERED: GLUCAGON FOR INJ 1 MG VIAL SQ PRN (20:11)
[2023-06-12] MEDS: LACTATED RINGER'S 1,000 ML IV SCH (20:50)
[2023-06-12] MEDS: MAGNESIUM SULFATE / D5W 1 GM/100 ML BAG IV SCH (20:51)
[2023-06-12] MEDS: GABAPENTIN 250 MG/5 ML 470 ML BTL PO SCH (20:52)
[2023-06-12] MEDS: FAMOTIDINE 40 MG TABLET PO SCH (20:53)
[2023-06-12] MEDS: traZODone HCL 50 MG TAB PO SCH (20:53)
[2023-06-12] MEDS: rOPINIRole HCL 1 MG TABLET PO SCH (20:53)
[2023-06-12] MEDS: INSULIN ASPART PER UNIT CHARGE SC SCH (21:24)
[2023-06-13] MEDS: ENOXAPARIN INJ 40 MG/0.4 ML SYR SQ SCH (00:45)
[2023-06-13] MEDS: INSULIN ASPART PER UNIT CHARGE SC SCH ×2 (00:45→16:44)
[2023-06-13] MEDS: metFORMIN HCL 500 MG TAB PO SCH (07:22)
[2023-06-13 07:32] LABS: Basophils # (auto) 0.04 K/uL (0.00-0.20); Basophils % (auto) 0.3 %; Eosinophils % (auto) 0.7 %; Hematocrit (blood only) 33.1 % (37.0-47.0); Hemoglobin 10.8 g/dl (12.0-16.0); Immature Granulocytes # (auto) 0.09 K/uL (0.01-0.20); Immature Granulocytes % (auto) 0.6 %; Lymphocytes # (auto) 1.33 K/uL (1.20-3.40); Lymphocytes % (auto) 9.1 %; Mean Corpuscular Hemoglobin 29.4 pg (25.0-34.0); Mean Corpuscular Hgb Conc 32.6 g/dL (32.0-36.0); Mean Corpuscular Volume 90.2 fL (80.0-100.0); Mean Platelet Volume 9.8 fL (9.4-12.4); Monocytes # (auto) 0.95 K/uL (0.11-0.59); Monocytes % (auto) 6.5 %; Neutrophils # (auto) 12.14 K/uL (1.40-6.50); Neutrophils % (auto) 82.8 %; Platelet Count 253 K/uL (130-400); RDW Coefficient of Variation 13.3 % (11.5-14.5); RDW Standard Deviation 43.9 fL (36.4-46.3); Red Blood Count 3.67 M/uL (4.20-5.40); White Blood Count 14.65 K/ul (4.8-10.8)
[2023-06-13 07:47] LABS: Estimated Average Glucose 166 mg/dl; Hemoglobin A1C 7.4 % (4.5-5.6)
[2023-06-13] MEDS: dilTIAZem HCL 180 MG CAPCR PO SCH (09:06)
[2023-06-13] MEDS: DULoxetine HCL 30 MG CAP PO SCH (09:06)
[2023-06-13] MEDS: DULoxetine HCL 60 MG CAP PO SCH (09:06)
[2023-06-13] MEDS: DONEPEZIL HCL 5 MG TAB PO SCH (09:06)
[2023-06-13] MEDS: PRAVASTATIN SOD 40 MG TAB PO SCH (09:06)
[2023-06-13] MEDS: LANSOPRAZOLE 30 MG SOLTAB NG SCH (09:06)
[2023-06-13 09:21] LABS: Albumin Level 3.6 gm/dl (3.4-5.0); Bilirubin,Total 0.5 mg/dl (0.2-1.0); Potassium 4.5 mmol/L (3.5-5.1)
[2023-06-13 09:28] LABS: Albumin Globulin Ratio 1.3 (0.9-2); BUN Creatinine Ratio 14.9 (10-20); Creatinine Clr Calc Pharmacy 57.2 ml/min; Est GFR (Non-African American) 63.8 ml/min; Globulin 2.8 gm/dl (2.5-4.0); Phosphorus 4.4 mg/dl (2.5-4.9); Total Protein 6.4 gm/dl (6.0-8.3)
[2023-06-13] MEDS ORDERED: Nursing to Pharmacy Communication SCH (12:45)
--- NOTE | 2023-06-13 13:27 | Electrocardiogram Report ---
Test Reason : Blood Pressure : / mmHG Vent. Rate : 100 BPM Atrial Rate : 100 BPM P-R Int : 174 ms QRS Dur : 104 ms QT Int : 340 ms P-R-T Axes : 061 -66 075 degrees QTc Int : 438 ms Normal sinus rhythm Left axis deviation Poor R wave progression, consider anterior NM vs. lead placement vs. LVH Abnormal ECG When compared with ECG of 09-SEP-2022 13:00, No significant change Confirmed by Juan Wiggins ([id number]) on 06/13/2023 1:27:07 PM Referred By: REFERRED SELF Confirmed By:Juan Wiggins
--- NOTE | 2023-06-13 16:33 | Hospitalist Progress Note ---
Date of Service June 13, 2023 Assessment & Plan (1) Aspiration pneumonia: Plan: Noncompliant with aspiration recommendations s/p Myotomy with Fundoplication in July 2021 - Hx of type 2 Achalasia - s/p flexible bronch, EGD and dilation 11/2021 - Hx of barium swallow 08/2022 - with mild to moderate esophageal dysmotility Repeat SLT consult - continue minced and moist diet - recommend good oral hygiene BID - continue Unasyn 3g IV q6h - Blood cultures pending PT/OT (2) Hypoxia: Plan: Aim O2 sats > 90% - Baseline 2L Currently requiring 3.5L (3) Sepsis: Plan: Lactate improving although suspect this is more of a hypoxia rather than fluid issue as she is not hypotensive or tachycardic. IVF now discontinued . abx as above (4) Hypomagnesemia: Plan: Mag 1.5 on arrival -Received Mg sulfate 3g IV Mag now 2.0 (5) SHELDON on CPAP: Plan: Not on CPAP at home, will trial CPAP here HS (6) Diabetes mellitus type 2 in obese: Plan: HbA1c 8.4 in June 2021, Repeat 06/13: 7.4 Continue metformin NovoLog for correction only: --Goal BSG Range: Low 110 mg/dL, High 140 mg/dL --Correction Factor: 50 mg/dL/unit --Carbohydrate ratio = no carb coverage --BSGs ACHS if eating, q6h if npo (7) GERD (gastroesophageal reflux disease): Plan: Switch omeprazole to pantoprazole per hospital formulary (8) HTN (hypertension), benign: Plan: Continue diltiazem. Resume lisinopril 06/14 continue to hold hydrochlorothiazide (9) Restless leg syndrome: Plan: Continue ropinirole Plan VTE prophylaxis - Lovenox 40 mg subcu daily Disposition - continued inpatient stay Daughter updated by phone Admission and Anticipated Discharge Date Admission Date: June 12, 2023 Subjective Patient sitting at the side of the bed. Reports that she she knows she has pneumonia and always has pneumonia. Reports being in the hospital 15 times because of this. When asked about following her swallowing precautions at home, states that her daughter is going to prepare her food properly now. Does feel weak, especially in the legs. However maintains a good appetite. Denies fever and chills. spoke with daughter - daughter thinks that she has been throwing up in her room and hiding this from the daughter and son that she lives with. Daughter aware of recommendation from TRAINING ANALYST, but has difficulty getting her mom to follow these Review of Systems Review of Systems: All systems reviewed & are unremarkable except as noted in Subjective Physical Exam Physical Exam: General: NAD, VS as above Resp: normal respiratory effort, on 3.5 L NC, diminished in bases CV: RRR, no murmur, Abd: normal bowel sounds, non tender, no hepatosplenomegaly Extremities: Moves all extremities, Results & Data Results & Data Vital Signs (Past 12 Hours) Vital Signs Temp Pulse Pulse Resp BP Pulse Ox O2 Del Method 06/13/23 14:58 36.8 C 77 18 159/82 H 93 Nasal Cannula 06/13/23 11:26 36.8 C 72 18 140/82 97 Nasal Cannula 06/13/23 07:29 Nasal Cannula 06/13/23 07:21 36.6 C 76 16 137/81 96 Nasal Cannula O2 Flow Rate 06/13/23 14:58 3.5 06/13/23 11:26 3.5 06/13/23 07:29 3.5 06/13/23 07:21 3.5 Laboratory Results CBC and chemistry reviewed Hemoglobin A1c Diagnostic Findings Chest x-ray reviewed PG Care Time/CCT Total # of Minutes Spent Total Time Spent with Patient: Total time spent is greater than 50% in coordination of care (as documented) at patient's floor/unit and/or counseling patient: Coding Level of Care Code 21206 SUB INP/OBS CARE 3/50MIN Diagnoses Aspiration pneumonia J69.0 Aspiration pneumonia type: unspecified Hypoxia R09.02 Sepsis A41.9 Hypomagnesemia E83.42 SHELDON on CPAP G47.33; Z99.89 Diabetes mellitus type 2 in obese E11.69; E66.9 GERD (gastroesophageal reflux disease) K21.9 HTN (hypertension), benign I10 Restless leg syndrome G25.81 (1) Aspiration pneumonia Aspiration pneumonia type: unspecified
[2023-06-14 07:17] LABS: Basophils # (auto) 0.03 K/uL (0.00-0.20); Basophils % (auto) 0.4 %; Eosinophils # (auto) 0.21 K/uL (0.00-0.50); Eosinophils % (auto) 3.1 %; Hematocrit (blood only) 34.5 % (37.0-47.0); Hemoglobin 11.1 g/dl (12.0-16.0); Immature Granulocytes # (auto) 0.11 K/uL (0.01-0.20); Immature Granulocytes % (auto) 1.6 %; Lymphocytes # (auto) 1.24 K/uL (1.20-3.40); Lymphocytes % (auto) 18.6 %; Mean Corpuscular Hemoglobin 28.8 pg (25.0-34.0); Mean Corpuscular Hgb Conc 32.2 g/dL (32.0-36.0); Mean Corpuscular Volume 89.4 fL (80.0-100.0); Mean Platelet Volume 9.9 fL (9.4-12.4); Monocytes # (auto) 0.56 K/uL (0.11-0.59); Monocytes % (auto) 8.4 %; Neutrophils # (auto) 4.53 K/uL (1.40-6.50); Neutrophils % (auto) 67.9 %; Platelet Count 264 K/uL (130-400); RDW Coefficient of Variation 13.2 % (11.5-14.5); RDW Standard Deviation 43.5 fL (36.4-46.3); Red Blood Count 3.86 M/uL (4.20-5.40); White Blood Count 6.68 K/ul (4.8-10.8)
[2023-06-14 07:31] LABS: BUN Creatinine Ratio 17.2 (10-20); Calcium 9.2 mg/dl (8.6-10.3); Creatinine Clr Calc Pharmacy 50.3 ml/min; Est GFR (African American) 63.3 ml/min; Est GFR (Non-African American) 54.6 ml/min; Potassium 4.3 mmol/L (3.5-5.1)
[2023-06-14] MEDS: lisinopril 10 MG TAB PO SCH (09:42)
--- NOTE | 2023-06-14 16:56 | Hospitalist Progress Note ---
Date of Service June 14, 2023 Assessment & Plan (1) Aspiration pneumonia: Plan: Noncompliant with aspiration recommendations s/p Myotomy with Fundoplication in July 2021 - Hx of type 2 Achalasia - s/p flexible bronch, EGD and dilation 11/2021 - Hx of barium swallow 08/2022 - with mild to moderate esophageal dysmotility Repeat SLT consult - continue minced and moist diet - recommend good oral hygiene BID - continue Unasyn 3g IV q6h - Blood cultures: no growth at 48 hours - sputum culture: Pinpoint growth, reincubating PT/OT - recommend return home with family support (2) Hypoxia: Plan: Aim O2 sats > 90%, wean as able - Baseline 2L Currently requiring 3.5L (3) Sepsis: Plan: Lactate improving although suspect this is more of a hypoxia rather than fluid issue as she is not hypotensive or tachycardic. IVF now discontinued . abx as above (4) Hypomagnesemia: Plan: Mag 1.5 on arrival -Received Mg sulfate 3g IV Mag improved to 2.0 (5) SHELDON on CPAP: Plan: Not on CPAP at home, will trial CPAP here HS (6) Diabetes mellitus type 2 in obese: Plan: HbA1c 8.4 in June 2021, Repeat 06/13: 7.4 Continue metformin NovoLog for correction only: --Goal BSG Range: Low 110 mg/dL, High 140 mg/dL --Correction Factor: 50 mg/dL/unit --Carbohydrate ratio = no carb coverage --BSGs ACHS if eating, q6h if npo (7) GERD (gastroesophageal reflux disease): Plan: Switch omeprazole to pantoprazole per hospital formulary (8) HTN (hypertension), benign: Plan: Continue diltiazem. Resume lisinopril 06/14 Resume hydrochlorothiazide 06/15 (9) Restless leg syndrome: Plan: Continue ropinirole Plan VTE prophylaxis - Lovenox 40 mg subcu daily Disposition - continued inpatient stay Admission and Anticipated Discharge Date Admission Date: June 12, 2023 Subjective patient sitting on the edge of the bed. Reports that she is not as hungry today and she is not trying to over eat. Overall feels better but understands that she needs to get her oxygen needs down. Denies coughing while eating today. No acute complaints Review of Systems Review of Systems: All systems reviewed & are unremarkable except as noted in Subjective Physical Exam Physical Exam: General: NAD, VS as above Resp: normal respiratory effort, on 3.5 L NC, diminished in bases CV: RRR, no murmur, Abd: normal bowel sounds, non tender, no hepatosplenomegaly Extremities: Moves all extremities, Results & Data Results & Data Vital Signs (Past 12 Hours) Vital Signs Temp Pulse Pulse Resp BP BP Pulse Ox 06/14/23 15:38 36.7 C 77 16 168/76 H 95 06/14/23 07:50 06/14/23 07:18 36.6 C 71 18 135/66 96 O2 Del Method O2 Flow Rate 06/14/23 15:38 Nasal Cannula 4 06/14/23 07:50 Nasal Cannula 3.5 06/14/23 07:18 Nasal Cannula 4 Laboratory Results CBC and chemistry reviewed PG Care Time/CCT Total # of Minutes Spent Total Time Spent with Patient: Total time spent is greater than 50% in coordination of care (as documented) at patient's floor/unit and/or counseling patient: Coding Level of Care Code 18925 SUB INP/OBS CARE 2/35MIN Diagnoses Aspiration pneumonia J69.0 Aspiration pneumonia type: unspecified Hypoxia R09.02 Sepsis A41.9 Hypomagnesemia E83.42 SHELDON on CPAP G47.33; Z99.89 Diabetes mellitus type 2 in obese E11.69; E66.9 GERD (gastroesophageal reflux disease) K21.9 HTN (hypertension), benign I10 Restless leg syndrome G25.81 (1) Aspiration pneumonia Aspiration pneumonia type: unspecified
[2023-06-15 08:04] LABS: Hematocrit (blood only) 37.9 % (37.0-47.0); Hemoglobin 12.1 g/dl (12.0-16.0); Mean Corpuscular Hemoglobin 28.8 pg (25.0-34.0); Mean Corpuscular Hgb Conc 31.9 g/dL (32.0-36.0); Mean Corpuscular Volume 90.2 fL (80.0-100.0); Mean Platelet Volume 9.5 fL (9.4-12.4); Platelet Count 289 K/uL (130-400); RDW Coefficient of Variation 13.1 % (11.5-14.5); RDW Standard Deviation 42.8 fL (36.4-46.3); White Blood Count 6.23 K/ul (4.8-10.8)
[2023-06-15] MEDS: hydroCHLOROthiazide 25 MG TAB PO SCH (08:18)
[2023-06-15 08:23] LABS: BUN Creatinine Ratio 14.4 (10-20); Calcium 9.5 mg/dl (8.6-10.3); Creatinine Clr Calc Pharmacy 44.8 ml/min; Est GFR (African American) 55.1 ml/min; Est GFR (Non-African American) 47.5 ml/min; Potassium 4.3 mmol/L (3.5-5.1)
[2023-06-15 14:06] LABS: Cdiff Toxin B Gene (2yr or >) Positive Cdiff Gene (Neg)
[2023-06-15 14:30] LABS: Cdiff Antigen Positive; Cdiff Toxin A+B Negative Cdiff Toxin (Negative)
[2023-06-15 16:19] LABS: C Reactive Protein 5.04 mg/dl (0-0.5)
--- NOTE | 2023-06-15 18:02 | Hospitalist Progress Note ---
Date of Service June 15, 2023 Assessment & Plan (1) Aspiration pneumonia: Plan: Noncompliant with aspiration recommendations s/p Myotomy with Fundoplication in July 2021 - Hx of type 2 Achalasia - s/p flexible bronch, EGD and dilation 11/2021 - Hx of barium swallow 08/2022 - with mild to moderate esophageal dysmotility Repeat SLT consult - continue minced and moist diet - recommend good oral hygiene BID - continue Unasyn 3g IV q6h - Blood cultures: no growth at 48 hours - sputum culture: normal zohreh PT/OT - recommend return home with family support (2) Hypoxia: Plan: Aim O2 sats > 90%, wean as able - Baseline 2L has been stable on baseline, 2 L for the afternoon (3) Diarrhea: Plan: - at least 4 loose stools in the last 24 hours - patient does report that she was quite constipated prior to arrival, however receiving antibiotics for pneumonia as above C. difficile gene positive, toxin negative - CRP: 5 we will continue to monitor stools, and recheck CRP with a.m. labs (4) Hypomagnesemia: Plan: Mag 1.5 on arrival -Received Mg sulfate 3g IV Mag improved to 2.0 will recheck with a.m. labs in the setting of diarrhea (5) Sepsis: Plan: Lactate improving although suspect this is more of a hypoxia rather than fluid issue as she is not hypotensive or tachycardic. IVF now discontinued . abx as above (6) SHELDON on CPAP: Plan: Not on CPAP at home, will trial CPAP here HS (7) Diabetes mellitus type 2 in obese: Plan: HbA1c 8.4 in June 2021, Repeat 06/13: 7.4 Continue metformin NovoLog for correction only: --Goal BSG Range: Low 110 mg/dL, High 140 mg/dL --Correction Factor: 50 mg/dL/unit --Carbohydrate ratio = no carb coverage --BSGs ACHS if eating, q6h if npo (8) GERD (gastroesophageal reflux disease): Plan: Switch omeprazole to pantoprazole per hospital formulary (9) HTN (hypertension), benign: Plan: Continue diltiazem. Resume lisinopril 06/14 Resume hydrochlorothiazide 06/15 (10) Restless leg syndrome: Plan: Continue ropinirole Plan VTE prophylaxis - Lovenox 40 mg subcu daily Disposition - continued inpatient stay daughter updated at bedside Admission and Anticipated Discharge Date Admission Date: June 12, 2023 Subjective patient seen sitting in the bed, reports feeling better today. Does report continued episodes of diarrhea, at least 3 times today, with some mild abdominal Tenderness. Feels like her breathing has improved. Daughter present at bedside, daughter relates that patient says she is going to change her habits but that nothing changes when she gets home. Had a barbara conversation with daughter and patient about the consequences of not following recommendations upon discharge from the hospital. However patient will not be discharged today given her C. difficile testing results Review of Systems Review of Systems: All systems reviewed & are unremarkable except as noted in Subjective Physical Exam Physical Exam: General: NAD, VS as above Resp: normal respiratory effort, on 2 L NC, no crackles or wheezes CV: RRR, no murmur, Abd: normal bowel sounds, non tender, no hepatosplenomegaly Extremities: Moves all extremities, Results & Data Results & Data Vital Signs (Past 12 Hours) Vital Signs Temp Pulse Resp BP Pulse Ox O2 Del Method O2 Flow Rate 06/15/23 14:36 Nasal Cannula 2 06/15/23 14:10 36.9 C 77 17 121/72 94 Nasal Cannula 06/15/23 12:33 79 97 Nasal Cannula 2 06/15/23 07:45 36.5 C 86 16 110/72 96 Room Air Laboratory Results CBC, chemistry, C. difficile, CRP reviewed PG Care Time/CCT Total # of Minutes Spent Total Time Spent with Patient: Total time spent is greater than 50% in coordination of care (as documented) at patient's floor/unit and/or counseling patient: Coding Level of Care Code 24175 SUB INP/OBS CARE 3/50MIN Diagnoses Aspiration pneumonia J69.0 Aspiration pneumonia type: unspecified Hypoxia R09.02 Diarrhea R19.7 Hypomagnesemia E83.42 Sepsis A41.9 SHELDON on CPAP G47.33; Z99.89 Diabetes mellitus type 2 in obese E11.69; E66.9 GERD (gastroesophageal reflux disease) K21.9 HTN (hypertension), benign I10 Restless leg syndrome G25.81 (1) Aspiration pneumonia Aspiration pneumonia type: unspecified
[2023-06-16 07:38] LABS: Magnesium 1.8 mg/dl (1.7-2.4)
[2023-06-16] MEDS ORDERED: Nursing to Pharmacy Communication SCH (08:15)
[2023-06-16] MEDS: GABAPENTIN 600 MG TAB PO SCH (09:28)
[2023-06-16 09:43] LABS: Basophils # (auto) 0.04 K/uL (0.00-0.20); Basophils % (auto) 0.6 %; Eosinophils # (auto) 0.31 K/uL (0.00-0.50); Eosinophils % (auto) 4.4 %; Hemoglobin 11.2 g/dl (12.0-16.0); Immature Granulocytes # (auto) 0.04 K/uL (0.01-0.20); Immature Granulocytes % (auto) 0.6 %; Lymphocytes % (auto) 18.4 %; Mean Corpuscular Hemoglobin 28.7 pg (25.0-34.0); Mean Corpuscular Volume 89.7 fL (80.0-100.0); Mean Platelet Volume 9.6 fL (9.4-12.4); Monocytes # (auto) 0.76 K/uL (0.11-0.59); Monocytes % (auto) 10.8 %; Neutrophils # (auto) 4.61 K/uL (1.40-6.50); Neutrophils % (auto) 65.2 %; Platelet Count 292 K/uL (130-400); RDW Coefficient of Variation 13.2 % (11.5-14.5); RDW Standard Deviation 42.8 fL (36.4-46.3); White Blood Count 7.06 K/ul (4.8-10.8)
[2023-06-16 09:43] LABS: C Reactive Protein 2.42 mg/dl (0-0.5); Calcium 9.3 mg/dl (8.6-10.3); Creatinine Clr Calc Pharmacy 49.8 ml/min; Est GFR (African American) 62.5 ml/min; Est GFR (Non-African American) 53.9 ml/min; Potassium 3.9 mmol/L (3.5-5.1)
[2023-06-16] MEDS: ACETAMINOPHEN 325 MG TAB PO PRN (10:35)
[2023-06-16] MEDS: ADVANCED PROBIOTIC 650 MG CAPSULE PO SCH (12:15)
--- NOTE | 2023-06-16 17:53 | Hospitalist Progress Note ---
Date of Service June 16, 2023 Assessment & Plan (1) Aspiration pneumonia: Plan: Noncompliant with aspiration recommendations s/p Myotomy with Fundoplication in July 2021 - Hx of type 2 Achalasia - s/p flexible bronch, EGD and dilation 11/2021 - Hx of barium swallow 08/2022 - with mild to moderate esophageal dysmotility Repeat SLT consult - continue minced and moist diet - recommend good oral hygiene BID - continue Unasyn 3g IV q6h - Blood cultures: no growth at 48 hours - sputum culture: normal zohreh PT/OT - recommend return home with family support (2) Hypoxia: Plan: Aim O2 sats > 90%, wean as able - Baseline 2L improved. now stable on baseline 2L (3) Diarrhea: Plan: - at least 4 loose stools 06/14-06/15 - patient does report that she was quite constipated prior to arrival, however receiving antibiotics for pneumonia as above C. difficile gene positive, toxin negative - CRP: 5 --> 2.42 patient with 4 loose stools again this morning, however without other signs of C. difficile. Discussed with Dr. Holt, recommend finish course of Unasyn, probiotic and trend CRP in AM. (4) Hypomagnesemia: Plan: Mag 1.5 on arrival -Received Mg sulfate 3g IV Mag improved to 2.0 Stable (5) Sepsis: Plan: Lactate improving although suspect this is more of a hypoxia rather than fluid issue as she is not hypotensive or tachycardic. IVF now discontinued . abx as above (6) SHELDON on CPAP: Plan: Not on CPAP at home, will trial CPAP here HS (7) Diabetes mellitus type 2 in obese: Plan: HbA1c 8.4 in June 2021, Repeat 06/13: 7.4 Continue metformin NovoLog for correction only: --Goal BSG Range: Low 110 mg/dL, High 140 mg/dL --Correction Factor: 50 mg/dL/unit --Carbohydrate ratio = no carb coverage --BSGs ACHS if eating, q6h if npo (8) GERD (gastroesophageal reflux disease): Plan: Switch omeprazole to pantoprazole per hospital formulary (9) HTN (hypertension), benign: Plan: Continue diltiazem. Resume lisinopril 06/14 Resume hydrochlorothiazide 06/15 (10) Restless leg syndrome: Plan: Continue ropinirole Plan VTE prophylaxis - Lovenox 40 mg subcu daily Disposition - continued inpatient stay Admission and Anticipated Discharge Date Admission Date: June 12, 2023 Subjective patient seen sitting in. Feels well however has had 4 episodes of diarrhea this morning. Denies blood in the stool but beyond that has a difficult time characterizing this. Denies abdominal pain. Denies fevers or chills. Good appetite. Is on her baseline 2 L of oxygen Review of Systems Review of Systems: All systems reviewed & are unremarkable except as noted in Subjective Physical Exam Physical Exam: General: NAD, VS as above Resp: normal respiratory effort, lungs clear to auscultation, on 2l CV: RRR, no murmur, Abd: normal bowel sounds, non tender, no hepatosplenomegaly Extremities: Moves all extremities, no edema Neuro: A&O x3, Results & Data Results & Data Vital Signs (Past 12 Hours) Vital Signs Temp Pulse Resp BP Pulse Ox O2 Del Method O2 Flow Rate 06/16/23 15:19 36.8 C 81 136/70 94 Nasal Cannula 06/16/23 10:00 Nasal Cannula 2 06/16/23 06:20 36.7 C 71 18 136/87 97 Nasal Cannula 2 Laboratory Results CBC, chemistry, crp, magnesium reviewed PG Care Time/CCT Total # of Minutes Spent Total Time Spent with Patient: Total time spent is greater than 50% in coordination of care (as documented) at patient's floor/unit and/or counseling patient: Coding Level of Care Code 04421 SUB INP/OBS CARE 2/35MIN Diagnoses Aspiration pneumonia J69.0 Aspiration pneumonia type: unspecified Hypoxia R09.02 Diarrhea R19.7 Hypomagnesemia E83.42 Sepsis A41.9 SHELDON on CPAP G47.33; Z99.89 Diabetes mellitus type 2 in obese E11.69; E66.9 GERD (gastroesophageal reflux disease) K21.9 HTN (hypertension), benign I10 Restless leg syndrome G25.81 (1) Aspiration pneumonia Aspiration pneumonia type: unspecified
[2023-06-17 07:32] LABS: Hematocrit (blood only) 34.3 % (37.0-47.0); Hemoglobin 10.9 g/dl (12.0-16.0); Mean Corpuscular Hemoglobin 28.6 pg (25.0-34.0); Mean Corpuscular Hgb Conc 31.8 g/dL (32.0-36.0); Mean Platelet Volume 9.7 fL (9.4-12.4); Platelet Count 277 K/uL (130-400); RDW Coefficient of Variation 13.2 % (11.5-14.5); RDW Standard Deviation 43.3 fL (36.4-46.3); Red Blood Count 3.81 M/uL (4.20-5.40); White Blood Count 5.04 K/ul (4.8-10.8)
[2023-06-17 08:02] LABS: BUN Creatinine Ratio 18.3 (10-20); C Reactive Protein 1.49 mg/dl (0-0.5); Calcium 9.2 mg/dl (8.6-10.3); Creatinine Clr Calc Pharmacy 53.5 ml/min; Est GFR (African American) 68.2 ml/min; Est GFR (Non-African American) 58.9 ml/min; Potassium 4.2 mmol/L (3.5-5.1)
--- NOTE | 2023-06-17 12:04 | Discharge Summary ---
Discharge Summary Date of Service June 17, 2023 Notes For Next Care Provider Reiterated to daughter and patient multiple times that it is very important that she follows the minced and moist diet at home. If she does not do this, she will continue to aspirate and get pneumonia and return to the hospital. Blood cultures pending - no growth at discharge Consider follow up with Dr. Stallworth is back pain Blood sugars well controlled with just insulin. Medication Changes From Visit Probiotic Admission HPI Per Admitting Provider Silvia Church is a 77-year-old female who presents to the ER with sudden onset headache, weakness, cough, shortness of breath. She has a complex history of esophageal achalasia s/p s/p Myotomy with Fundoplication in July 2021 and have been doing well since then with only 1 episode of aspiration pneumonia in August 2022. She reports feeling her normal self yesterday and last ate food last night. She did not have anything to eat or drink today. She usually sleeps in the mornings and approximately 1 PM today since she became suddenly sick with chills, bilateral lower extremity weakness, coughing up green sputum, headache and very short of breath. Given history of recurrent aspiration pneumonia her daughter called EMS and she was brought in by ambulance. Principal Dx & Hospital Course #1 = Principal Diagnosis (1) Aspiration pneumonia: Noncompliant with aspiration recommendations s/p Myotomy with Fundoplication in July 2021 - Hx of type 2 Achalasia - s/p flexible bronch, EGD and dilation 11/2021 - Hx of barium swallow 08/2022 - with mild to moderate esophageal dysmotility Repeat SLT consult - continue minced and moist diet - recommend good oral hygiene BID - Completed 5 day course of Unasyn - Blood cultures: no growth at 48 hours - sputum culture: normal zohreh PT/OT - recommend return home with family support Discharged to home 06/16 (2) Hypoxia: Chronic hypoxic respiratory failure Aim O2 sats > 90%, wean as able - Baseline 2L improved. now stable on baseline 2L (3) Diarrhea: - at least 4 loose stools 06/14-06/15 - patient does report that she was quite constipated prior to arrival, however receiving antibiotics for pneumonia as above C. difficile gene positive, toxin negative - CRP: 5 --> 2.42 patient with 4 loose stools again morning 2/29, however without other signs of C. difficile. Discussed with Dr. Holt, recommend finish course of Unasyn, probiotic and trend CRP in AM. 3/ one semi formed stool this morning. CRP downtrending, recommend continued probiotic at discharge (4) Hypomagnesemia: Mag 1.5 on arrival -Received Mg sulfate 3g IV Mag improved to 2.0 Stable (5) Sepsis: Lactate improving although suspect this is more of a hypoxia rather than fluid issue as she is not hypotensive or tachycardic. IVF now discontinued . completed course of unasyn resovled (6) Diabetes mellitus type 2 in obese: HbA1c 8.4 in June 2021, Repeat 06/13: 7.4 Continue metformin Novolog rarely needed during stay. Discharged on home metformin only (7) GERD (gastroesophageal reflux disease): continue home PPI (8) HTN (hypertension), benign: Continue diltiazem. Continue lisinopril Continue hydrochlorothiazide (9) Restless leg syndrome: Continue ropinirole Plan Dispo: discharge to home with support from daughter Discharge Exam General: NAD, VS as above Resp: normal respiratory effort, lungs clear to auscultation, on 2l CV: RRR, no murmur, Abd: normal bowel sounds, non tender, no hepatosplenomegaly Extremities: Moves all extremities, no edema Neuro: A&O x3, Updated Medication List Medication Instructions Recorded Confirmed Type cholecalciferol (vitamin D3) 25 25 mcg PO QAM 05/03/20 06/12/23 History mcg (1,000 unit) tablet (Vitamin D3) cyanocobalamin (vitamin B-12) 1,000 mcg PO QAM 05/03/20 06/12/23 History 1,000 mcg tablet (Vitamin B-12) diltiazem HCl 180 mg 180 mg PO QAM 05/03/20 06/12/23 History capsule,extended release 24 hr duloxetine 30 mg capsule,delayed 30 mg PO QAM 05/03/20 06/12/23 History release (Cymbalta) duloxetine 60 mg capsule,delayed 60 mg PO QAM 05/03/20 06/12/23 History release gabapentin 600 mg tablet 600 mg PO TID 05/03/20 06/12/23 History pravastatin 40 mg tablet 40 mg PO QAM 05/03/20 06/12/23 History sucralfate 1 gram tablet (Carafate) 1 g PO ACHS PRN Indigestion 05/03/20 06/12/23 History albuterol sulfate 90 mcg/actuation 2 puff inhalation Q3H PRN 11/08/20 06/12/23 History aerosol inhaler Shortness Of Breath acetaminophen 325 mg tablet 650 mg (2 x 325 mg) PO Q4H PRN 11/10/20 06/12/23 Rx fever or pain #30 tabs diclofenac sodium 1 % topical gel 2 g topical QID PRN Pain 11/16/20 06/12/23 History oxycodone-acetaminophen 5 mg-325 1 tab PO Q6H PRN Pain 05/22/21 06/12/23 History mg tablet ondansetron HCl 4 mg tablet 4 mg PO Q6H PRN NAUSEA/VOMITING 07/31/21 06/12/23 History donepezil 5 mg tablet 5 mg PO DAILY 06/12/23 06/12/23 History dulaglutide 0.75 mg/0.5 mL 0.75 mg subcut WK 06/12/23 06/12/23 History subcutaneous pen injector (Trulicity) famotidine 40 mg tablet 40 mg PO HS 06/12/23 06/12/23 History furosemide 20 mg tablet (Lasix) 20 mg PO DAILY PRN Edema 06/12/23 06/12/23 History hydrochlorothiazide 25 mg tablet 25 mg PO DAILY 06/12/23 06/12/23 History lisinopril 10 mg tablet 10 mg PO DAILY 06/12/23 06/12/23 History metformin 500 mg tablet 1,000 mg PO BID 06/12/23 06/12/23 History omeprazole 20 mg capsule,delayed 20 mg PO QAM 06/12/23 06/12/23 History release ropinirole 1 mg tablet 1 mg PO HS 06/12/23 06/12/23 History tizanidine 4 mg tablet 4 mg PO Q8H PRN MUSCLE SPASMS 06/12/23 06/12/23 History trazodone 150 mg tablet 150 mg PO HS 06/12/23 06/12/23 History L.acidop,casei,lactis,rham-B.lact,jeniffer 2 cap PO DAILY 30 days #60 caps 06/17/23 Rx 625 mg (10 billion cell) capsule (Advanced Probiotic) Hospital Stay Data Consultations 06/12/23 15:48 ED Decision to Admit Stat Diagnostic Imagining Performed Chest X-Ray 06/12/23 14:24 XR chest 1V portable HISTORY: Sepsis COMPARISON: Chest 09/09/2022. FINDINGS: No pneumothorax. The heart remains enlarged. Patchy bibasilar densities most pronounced on the right. No evidence for pulmonary edema. Lumbar spinal fusion hardware is partially visualized. Calcified granuloma within the right lower lobe. IMPRESSION: Patchy bibasilar densities most pronounced on the right. This favors a pneumonia and could be due to prior aspiration. ACT 112: Negative or not required by law. Electronically signed by: Alvin Mcmillan M.D. 06/12/2023 2:47 PM Pending Results Patient Have Any Pending Studies at Discharge: Yes (Blood cultures) Discharge Instructions Given to Patient (Per Discharging Provider) Ms. Church, [place] were hospitalized after having aspiration pneumonia. This is going to continue to happen if you do not follow the minced and moist diet at home. I have printed out a large packet with lots of information about this diet for you at discharge. It is very important to take small bites and chew them thoroughly and alternate with solids and liquids. You would benefit from wearing her dentures at home. Avoid things that are hard to chew like meats and dry bread and crackers. You should take a probiotic for at least the next month. I sent one to your pharmacy however it may not be covered by insurance and you can purchase one [id number]. You completed your course of antibiotics during her hospital stay. There were no other changes to your home medications. Activity: You can do normal everyday activities as your body allows. Take rest breaks if you feel tired. Do not overexert. Stop activity if you have pain, shortness of breath or feel dizzy. Follow-up appointments: Make an appointment with your primary care physician within one week of discharge. A copy of this summary will be sent to them. Every time you see your primary care physician, or any other doctor, bring your medication list, and a list of questions. CONTACT YOUR PRIMARY CARE PROVIDER if you experience any of the following: Shortness of breath or difficulty breathing Fevers or chills Feeling tired with normal activity or experiencing dizziness or fainting Difficulty following your treatment plan, or difficulty taking medications CALL 911 OR GO TO THE EMERGENCY DEPARTMENT if you experience any of the following: Severe abdominal pain or nausea/vomiting Severe chest pain, or chest pain that radiates (moves) to your jaw or arm Sudden, severe shortness of breath or difficulty breathing Thank you for allowing us to participate in your care. Total Time Total Time Spent Total Time Spent (In Minutes): Time spend day of discharge 35 minutes including direct patient care, medication reconciliation, documentation, review of labs and images, and coordination of care. Coding Level of Care Code 58179 INP/OBS DISCH >30 MIN Diagnoses Aspiration pneumonia J69.0 Aspiration pneumonia type: unspecified Hypoxia R09.02 Diarrhea R19.7 Hypomagnesemia E83.42 Sepsis A41.9 Diabetes mellitus type 2 in obese E11.69; E66.9 GERD (gastroesophageal reflux disease) K21.9 HTN (hypertension), benign I10 Restless leg syndrome G25.81
== END 2023-06-17 14:17 | disposition home or self-care (01) | DRG 871 ==
LOC: ED 13:52 → EDINP 15:53 → SUATTDRO 15:53 → 3E 22:34

== ENCOUNTER 2023-10-17 12:18 | Inpatient (IN) ==
--- NOTE | 2023-10-17 12:32 | ED Triage Note ---
Date of Service October 17, 2023 Provider in Triage Author: Brian Gore History of Present Illness This patient was briefly evaluated while in triage. An abbreviated physical exam was performed. This patient is a 78-year-old Female who presents to the ED for evaluation COPD on chronic oxygen, DM, mood disorder per daughter, woke today with fever (101)/chills, oxygen level 83%, JONES, chest pain/abdominal pain, SOB given nothing for fever, and did not increase nasal cannula oxygen rate Physical Exam GENERAL: NAD CARDIOVASCULAR: RRR RESPIRATORY: markedly diminished throughout ABDOMEN: BS x 4. Diffusely TTP. Initial orders for labs and / or imaging were placed and patient was placed in the waiting area until a bed is available. Please see further documentation for the full ED course.
[2023-10-17 13:17] LABS: Basophils # (auto) 0.03 K/uL (0.00-0.20); Basophils % (auto) 0.2 %; Eosinophils # (auto) 0.01 K/uL (0.00-0.50); Eosinophils % (auto) 0.1 %; Hematocrit (blood only) 36.1 % (37.0-47.0); Hemoglobin 11.8 g/dl (12.0-16.0); Immature Granulocytes # (auto) 0.08 K/uL (0.01-0.20); Immature Granulocytes % (auto) 0.5 %; Lymphocytes # (auto) 0.68 K/uL (1.20-3.40); Lymphocytes % (auto) 4.1 %; Mean Corpuscular Hemoglobin 28.6 pg (25.0-34.0); Mean Corpuscular Hgb Conc 32.7 g/dL (32.0-36.0); Mean Corpuscular Volume 87.6 fL (80.0-100.0); Mean Platelet Volume 9.6 fL (9.4-12.4); Monocytes # (auto) 1.03 K/uL (0.11-0.59); Monocytes % (auto) 6.2 %; Neutrophils # (auto) 14.87 K/uL (1.40-6.50); Neutrophils % (auto) 88.9 %; Platelet Count 265 K/uL (130-400); RDW Coefficient of Variation 13.5 % (11.5-14.5); RDW Standard Deviation 43.4 fL (36.4-46.3); Red Blood Count 4.12 M/uL (4.20-5.40)
--- NOTE | 2023-10-17 13:25 | Emergency Department Note ---
History of Present Illness General Chief complaint: Lethargic Stated complaint: weakness, migraine, back pain, leg pain Time Seen by Provider: 10/17/23 13:09 History of Present Illness Maximum Pain Intensity: 4 This is a 78-year-old female with a history of respiratory failure, hypoxia currently on 3 L nasal cannula oxygen chronically, multifocal pneumonia, MATT, hyponatremia, COPD, among other comorbidities that presents to the emergency department with complaints of "fever, headache, lower chest/upper abdominal pain, hypoxia". Patient as well as daughter at bedside provide history. They note that she was fine yesterday and then today woke at 0700 hrs. and seemed to be hallucinating, had a cough, fever, and pain in the lower chest/upper abdomen as well as a headache. Generalized weakness today to point where she fell x 2. No loss of consciousness. Patient does have history of similar previously/sepsis. Patient currently on 3 L nasal cannula however daughter notes that earlier today despite the 3 L nasal cannula she was 83%. Cough is nonproductive. Daughter notes Tmax 101 F prior to arrival today. Home Medications Medication Instructions Recorded Confirmed Type cholecalciferol (vitamin D3) 25 25 mcg PO QAM 05/03/20 10/17/23 History mcg (1,000 unit) tablet (Vitamin D3) cyanocobalamin (vitamin B-12) 1,000 mcg PO QAM 05/03/20 10/17/23 History 1,000 mcg tablet (Vitamin B-12) diltiazem HCl 180 mg 180 mg PO QAM 05/03/20 10/17/23 History capsule,extended release 24 hr duloxetine 30 mg capsule,delayed 30 mg PO QAM 05/03/20 10/17/23 History release (Cymbalta) duloxetine 60 mg capsule,delayed 60 mg PO QAM 05/03/20 10/17/23 History release gabapentin 600 mg tablet 600 mg PO TID 05/03/20 10/17/23 History pravastatin 40 mg tablet 40 mg PO QAM 05/03/20 10/17/23 History sucralfate 1 gram tablet (Carafate) 1 g PO ACHS PRN Indigestion 05/03/20 10/17/23 History albuterol sulfate 90 mcg/actuation 2 puff inhalation Q3H PRN 11/08/20 10/17/23 History aerosol inhaler Shortness Of Breath acetaminophen 325 mg tablet 650 mg (2 x 325 mg) PO Q4H PRN 11/10/20 10/17/23 Rx fever or pain #30 tabs diclofenac sodium 1 % topical gel 2 g topical QID PRN Pain 11/16/20 10/17/23 History oxycodone-acetaminophen 5 mg-325 1 tab PO Q8H PRN Pain 05/22/21 10/17/23 History mg tablet ondansetron HCl 4 mg tablet 4 mg PO Q6H PRN NAUSEA/VOMITING 07/31/21 10/17/23 History donepezil 5 mg tablet 5 mg PO DAILY 06/12/23 10/17/23 History dulaglutide 0.75 mg/0.5 mL 0.75 mg subcut WK 06/12/23 10/17/23 History subcutaneous pen injector (Trulicity) famotidine 40 mg tablet 40 mg PO HS 06/12/23 10/17/23 History furosemide 20 mg tablet (Lasix) 20 mg PO DAILY PRN Edema 06/12/23 10/17/23 History hydrochlorothiazide 25 mg tablet 25 mg PO DAILY 06/12/23 10/17/23 History lisinopril 10 mg tablet 10 mg PO DAILY 06/12/23 10/17/23 History metformin 500 mg tablet 1,000 mg PO BID 06/12/23 10/17/23 History omeprazole 20 mg capsule,delayed 20 mg PO QAM 06/12/23 10/17/23 History release ropinirole 1 mg tablet 1 mg PO HS 06/12/23 10/17/23 History tizanidine 4 mg tablet 4 mg PO Q8H PRN MUSCLE SPASMS 06/12/23 10/17/23 History trazodone 150 mg tablet 150 mg PO HS 06/12/23 10/17/23 History ezetimibe 10 mg tablet 10 mg PO DAILY 10/17/23 10/17/23 History lidocaine 5 % topical patch 1 patch transdermal DAILY 10/17/23 10/17/23 History Allergies Allergy/AdvReac Type Severity Reaction Status Date / Time atorvastatin [From Lipitor] Allergy Intermediate Skin Rash Verified 07/05/23 10:09 morphine AdvReac Intermediate Nausea Verified 07/05/23 10:09 Past Med/Surg History Problem List (Updated 10/17/23 @ 15:45 by Alvin Calvin PA-C) Fall Elevated troponin Restless leg syndrome Hypertension Type 2 diabetes mellitus Cough (Acute) Sepsis (Acute) Aspiration pneumonia Acute and chronic respiratory failure with hypoxia Sleep apnea unable to tolerate cpap Chronic hypercapnic respiratory failure Hypoxia (Acute) Achalasia, esophageal Hypomagnesemia Hypoxia (Acute) Hypotension (Acute) Respiratory failure (Acute) Multifocal pneumonia (Acute) Hallucination (Acute) MATT (acute kidney injury) Pneumonia MATT (acute kidney injury) Hyponatremia Acute blood loss anemia Abdominal distension S/P lumbar spine operation Neurogenic claudication due to lumbar spinal stenosis Encounter for pre-operative examination Nausea & vomiting (Acute) anytime eats or drinks, per pt and granddaughter was thought to be d/t mucus from smoking as does not happen when not smoking during hospitalizations Acute lumbar radiculopathy (Acute) Vitamin B12 deficiency Vitamin D deficiency AAA (abdominal aortic aneurysm) pt denies DVT prophylaxis Weight loss Severe protein-calorie malnutrition Clubbing of nail COPD (chronic obstructive pulmonary disease) Sensorineural hearing loss (SNHL) of both ears Otalgia Vocal cord polyps Cerumen impaction Polypharmacy (Acute) Lethargy (Acute) Vomiting (Acute) Acute respiratory failure with hypoxia Abnormal CT scan, esophagus Regurgitation of food Esophageal dysmotility Dysphagia Depression Obesity Chronic low back pain Hyperlipidemia Medical History Aspiration pneumonia SHELDON on CPAP not using cpap Pneumonia Hypoxia Acute and chronic respiratory failure with hypoxia Sepsis Headache History of esophageal dilatation Peripheral neuropathy Weight loss, unintentional Chronic obstructive pulmonary disease inhaler prn; O2 sats 90-94% per pt and granddaughter, they report qualifying walking test however that follow-up test was then normal, patient is not currently on supplemental oxygen, they deny recent walking desat test Dysphagia Schatzki's ring Encounter for pre-operative examination Current smoker Quit smoking 06/13/21 Restless leg syndrome Diabetes mellitus type 2 in obese NIDDM GERD (gastroesophageal reflux disease) Peptic ulcer disease (~2017) bleeding ulcer HTN (hypertension), benign Surgical History (Updated 07/18/23 @ 00:08 by Teresa Aguirre) History of cataract surgery bilateral S/P epidural steroid injection History of colonoscopy History of esophagogastroduodenoscopy (EGD) History of bilateral tubal ligation History of carpal tunnel release Left History of repair of rotator cuff Right History of lumbar fusion Family History Father Heart disease Brother Kidney disease Mother Gastric cancer Family/Other Testicular cancer Other No family history of adverse response to anesthesia Social History Smoking Status: Former smoker Tobacco Type: Cigarettes Age Started Using Tobacco: 11; Cigarettes Per Day: quit in 2022; Second Hand Exposure: Yes; Do You Dip or Chew Tobacco: No; Tobacco Cessation Education Requested by Patient: No Hx Alcohol Use: No Hx Substance Use: No Preferred Language: Citizen Of [place] Communication Ability: Effective 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 Beliefs That Will Affect Care: Sikhism marital status: / Current Living Situation: Family Current Living Situation Comment: lives with daughter her brother and grandson Other Information That Helps Us Care for You: No Feels Safe at Home: Yes Safety Concerns: Feels Safe At This Time Assistive Devices: Oxygen - Continuous Review of Systems A total of 10 systems reviewed and were otherwise negative Physical Exam Vital Signs Vital Signs - 24 hr 10/17/23 12:29 10/17/23 13:20 10/17/23 13:27 Temperature 37.5 C Temperature Source Oral Pulse Rate 103 H 96 H 92 H Pulse Rate [Apical] Pulse Rate from SpO2 Sensor 92 H Respiratory Rate 20 27 H Respiratory Effort / Characteristics Non-Labored Spontaneous Respiratory Depth Normal Respiratory Pattern Blood Pressure 94/60 L Blood Pressure [Right Arm] Blood Pressure Mean 71 Blood Pressure Mean [Right Arm] Blood Pressure Position Sitting Pulse Oximetry 90 94 Oxygen Delivery Method Nasal Cannula Oxygen Flow Rate 3 Sepsis Recent Fever Within 48 Hours No Sepsis New/Unexplained Change in Mental Status No Sepsis Action Taken by Nursing Physician Notified 10/17/23 13:30 10/17/23 13:30 10/17/23 13:36 Temperature Temperature Source Pulse Rate 93 H Pulse Rate [Apical] Pulse Rate from SpO2 Sensor 93 H Respiratory Rate 19 Respiratory Effort / Characteristics Respiratory Depth Respiratory Pattern Blood Pressure 99/60 L 99/60 L Blood Pressure [Right Arm] Blood Pressure Mean 64 64 Blood Pressure Mean [Right Arm] Blood Pressure Position Pulse Oximetry 94 Oxygen Delivery Method Oxygen Flow Rate Sepsis Recent Fever Within 48 Hours Sepsis New/Unexplained Change in Mental Status Sepsis Action Taken by Nursing 10/17/23 13:54 10/17/23 14:21 10/17/23 14:27 Temperature Temperature Source Pulse Rate 90 86 Pulse Rate [Apical] Pulse Rate from SpO2 Sensor 90 85 Respiratory Rate 22 25 H Respiratory Effort / Characteristics Respiratory Depth Respiratory Pattern Blood Pressure 132/76 Blood Pressure [Right Arm] Blood Pressure Mean 89 Blood Pressure Mean [Right Arm] Blood Pressure Position Pulse Oximetry 96 93 Oxygen Delivery Method Oxygen Flow Rate Sepsis Recent Fever Within 48 Hours Sepsis New/Unexplained Change in Mental Status Sepsis Action Taken by Nursing 10/17/23 14:30 10/17/23 14:30 10/17/23 14:30 Temperature Temperature Source Pulse Rate Pulse Rate [Apical] Pulse Rate from SpO2 Sensor Respiratory Rate Respiratory Effort / Characteristics Respiratory Depth Respiratory Pattern Blood Pressure 136/73 136/73 136/73 Blood Pressure [Right Arm] Blood Pressure Mean 102 102 102 Blood Pressure Mean [Right Arm] Blood Pressure Position Pulse Oximetry Oxygen Delivery Method Oxygen Flow Rate Sepsis Recent Fever Within 48 Hours Sepsis New/Unexplained Change in Mental Status Sepsis Action Taken by Nursing 10/17/23 14:30 10/17/23 14:30 10/17/23 14:37 Temperature Temperature Source Pulse Rate 82 Pulse Rate [Apical] 84 Pulse Rate from SpO2 Sensor 83 Respiratory Rate 18 26 H Respiratory Effort / Characteristics Non-Labored Spontaneous Respiratory Depth Normal Respiratory Pattern Regular Blood Pressure 136/73 Blood Pressure [Right Arm] 136/73 Blood Pressure Mean 102 Blood Pressure Mean [Right Arm] 94 Blood Pressure Position Pulse Oximetry 94 96 Oxygen Delivery Method Nasal Cannula Oxygen Flow Rate 3 Sepsis Recent Fever Within 48 Hours Sepsis New/Unexplained Change in Mental Status Sepsis Action Taken by Nursing 10/17/23 14:45 10/17/23 15:00 10/17/23 15:00 Temperature Temperature Source Pulse Rate 82 Pulse Rate [Apical] Pulse Rate from SpO2 Sensor 83 Respiratory Rate 24 Respiratory Effort / Characteristics Respiratory Depth Respiratory Pattern Blood Pressure 131/74 131/74 Blood Pressure [Right Arm] Blood Pressure Mean 102 102 Blood Pressure Mean [Right Arm] Blood Pressure Position Pulse Oximetry 96 Oxygen Delivery Method Oxygen Flow Rate Sepsis Recent Fever Within 48 Hours Sepsis New/Unexplained Change in Mental Status Sepsis Action Taken by Nursing 10/17/23 15:00 10/17/23 15:00 10/17/23 15:18 Temperature Temperature Source Pulse Rate 81 81 Pulse Rate [Apical] Pulse Rate from SpO2 Sensor 81 81 Respiratory Rate 21 23 Respiratory Effort / Characteristics Respiratory Depth Respiratory Pattern Blood Pressure 131/74 Blood Pressure [Right Arm] Blood Pressure Mean 102 Blood Pressure Mean [Right Arm] Blood Pressure Position Pulse Oximetry 96 96 Oxygen Delivery Method Oxygen Flow Rate Sepsis Recent Fever Within 48 Hours Sepsis New/Unexplained Change in Mental Status Sepsis Action Taken by Nursing VITAL SIGNS - Vital signs and nursing notes were reviewed. Borderline hypotensive, tachycardic, otherwise stable GENERAL - 78-year-old female appearing her stated age who is in no acute distress. Communicates well with provider and answers questions appropriately. SKIN - Without rashes. HEAD - NC/AT. EYES - Sclera anicteric. EARS - No deformities of external structures noted on gross examination bilaterally. NOSE - Midline and without cyanosis. No epistaxis or purulent drainage noted. MOUTH/OROPHARYNX - Without perioral cyanosis. Buccal mucosa pink and moist and without leukoplakia. Tongue midline with equal elevation of palate bilaterally. No tonsillar hypertrophy, erythema, or exudates noted. NECK - Neck with FROM. No nuchal rigidity. LUNGS - Chest wall symmetric without accessory muscle use, intercostals retractions, or central cyanosis. Mildly diminished breath sounds bilaterally left greater than right CARDIAC - RRR ABDOMEN - Abdominal contour normal without pulsations or visible masses. BS normoactive all four quadrants. No tenderness, palpable masses, hepatosplenomegaly, or ascites noted. EXTREMITIES - No clubbing or peripheral cyanosis. +5/5 strength noted in UE/LE bilaterally. NEUROLOGIC - Cranial nerves II through XII grossly intact. PSYCH -alert, oriented and pleasant on exam. Course Administered Medications Lactated Ringer's (Lr) 1,000 mls @ 100 mls/hr IV .Q10H [facility] Stop: 10/18/23 11:29 Last Admin: 10/17/23 16:07 Dose: 100 mls/hr Documented By: PENNY Magnesium Sulfate/Dextrose (Magnesium Sulfate / D5w) 1 gm in 100 mls @ 50 mls/hr IV Q2H [facility] Stop: 10/17/23 21:29 Last Admin: 10/17/23 16:07 Dose: 50 mls/hr Documented By: PENNY Discontinued Medications Piperacillin Sod/Tazobactam Sod (Zosyn) 4.5 gm in 100 mls @ 200 mls/hr IV NOW ONE Stop: 10/17/23 13:47 Last Infusion: 10/17/23 15:42 Dose: Infused Documented By: Admin: 10/17/23 15:11 Dose: 200 mls/hr Documented By: Sodium Chloride (Nss) 1,000 mls @ 999 mls/hr IV .Q1H1M [facility] Stop: 10/17/23 15:07 Last Infusion: 10/17/23 16:06 Dose: Infused Documented By: Admin: 10/17/23 15:10 Dose: 999 mls/hr Documented By: Infusion: 10/17/23 14:43 Dose: Infused Documented By: Admin: 10/17/23 13:42 Dose: 999 mls/hr Documented By: Ioversol (Optiray 320 125ml) 118 ml IV ONCE ONE Stop: 10/17/23 14:05 Last Admin: 10/17/23 14:04 Dose: 118 ml Documented By: ARANZA Medical Decision Making Laboratory Data 10/17/23 12:56 10/17/23 12:56 Lab Results 10/17/23 10/17/23 10/17/23 Range/Units 12:56 13:10 13:27 WBC 16.70 H (4.8-10.8) K/ul RBC 4.12 L (4.20-5.40) M/uL Hgb 11.8 L (12.0-16.0) g/dl Hct 36.1 L (37.0-47.0) % MCV 87.6 (80.0-100.0) fL MCH 28.6 (25.0-34.0) pg MCHC 32.7 (32.0-36.0) g/dL RDW Std Deviation 43.4 (36.4-46.3) fL RDW Coeff of [place] 13.5 (11.5-14.5) % Plt Count 265 (130-400) K/uL MPV 9.6 (9.4-12.4) fL Immature Gran % (Auto) 0.5 % Neut % (Auto) 88.9 % Lymph % (Auto) 4.1 % [place] % (Auto) 6.2 % Eos % (Auto) 0.1 % Baso % (Auto) 0.2 % Neut # (Auto) 14.87 H (1.40-6.50) K/uL Lymph # (Auto) 0.68 L (1.20-3.40) K/uL [place] # (Auto) 1.03 H (0.11-0.59) K/uL Eos # (Auto) 0.01 (0.00-0.50) K/uL Baso # (Auto) 0.03 (0.00-0.20) K/uL Immature Gran # (Auto) 0.08 (0.01-0.20) K/uL PT 10.8 (9.0-12.0) Seconds INR 1.0 (0.9-1.1) APTT 24 (21-31) Seconds PTT Ratio 0.9 Sodium 137 (136-145) mmol/L Potassium 4.7 (3.5-5.1) mmol/L Chloride 99 (98-107) mmol/L Carbon Dioxide 29 (21-32) mmol/L Anion Gap 9 (3-11) BUN 18 (6-23) mg/dl Creatinine 1.10 (0.6-1.2) mg/dl Est Cr Clr Drug Dosing 44.0 ml/min Est GFR ( Amer) 55.3 ml/min Est GFR (Non-Af Amer) 47.7 ml/min BUN/Creatinine Ratio 16.4 (10-20) Glucose 184 H (70-99(Fasting)) mg/dl Lactate 3.1 H* (0.4-2.0) mmol/L Calcium 9.1 (8.6-10.3) mg/dl Magnesium 1.4 L (1.7-2.4) mg/dl Total Bilirubin 0.4 (0.2-1.0) mg/dl AST 14 (13-39) U/L ALT 12 (7-52) U/L Alkaline Phosphatase 46 (34-104) U/L Troponin I High Sens 32.9 H (0-14) pg/ml Total Protein 7.1 (6.0-8.3) gm/dl Albumin 4.1 (3.4-5.0) gm/dl Globulin 3.0 (2.5-4.0) gm/dl Albumin/Globulin Ratio 1.4 (0.9-2) Lipase 14 (11-82) U/L Procalcitonin 0.88 H (0-0.5) ng/ml Urine Color Urine Appearance (Clear) Urine pH (4.5-7.5) Ur Specific [place] (1.000-1.030) Urine Protein (Negative) Urine Glucose (UA) (Negative) Urine Ketones (Negative) Urine Blood (Negative) Urine Nitrite (Negative) Urine Bilirubin (Negative) Urine Urobilinogen (Negative) Ur Leukocyte Esterase (Negative) Urine RBC (0-2) /hpf Urine WBC (0-5) /hpf Ur Epithelial Cells (0-2) /hpf Urine Bacteria (None Seen) Urine Mucus (None Prsent) Nasal Screen MRSA (PCR) (Negative) Adenovirus (PCR) Not Detected (NotDetected) B. pertussis DNA (PCR) Not Detected (NotDetected) B.parapertussis DNA PCR Not Detected (NotDetected) C. pneumoniae DNA (PCR) Not Detected (NotDetected) Coronavirus OC43 (PCR) Not Detected (NotDetected) Coronavirus HKU1 (PCR) Not Detected (NotDetected) Coronavirus 229E (PCR) Not Detected (NotDetected) SARS-CoV-2 (PCR) Not Detected (NotDetected) Coronavirus NL63 (PCR) Not Detected (NotDetected) Human Metapneumovir PCR Not Detected (NotDetected) Influenza Type A (PCR) Not Detected (NotDetected) Influenza Type B (PCR) Not Detected (NotDetected) M. pneumoniae (PCR) Not Detected (NotDetected) Parainfluenza 1 (PCR) Not Detected (NotDetected) Parainfluenza 2 (PCR) Not Detected (NotDetected) Parainfluenza 3 (PCR) Not Detected (NotDetected) Parainfluenza 4 (PCR) Not Detected (NotDetected) RSV (PCR) Not Detected (NotDetected) Entero/Rhino (PCR) Not Detected (NotDetected) 10/17/23 Range/Units 13:50 WBC (4.8-10.8) K/ul RBC (4.20-5.40) M/uL Hgb (12.0-16.0) g/dl Hct (37.0-47.0) % MCV (80.0-100.0) fL MCH (25.0-34.0) pg MCHC (32.0-36.0) g/dL RDW Std Deviation (36.4-46.3) fL RDW Coeff of [place] (11.5-14.5) % Plt Count (130-400) K/uL MPV (9.4-12.4) fL Immature Gran % (Auto) % Neut % (Auto) % Lymph % (Auto) % [place] % (Auto) % Eos % (Auto) % Baso % (Auto) % Neut # (Auto) (1.40-6.50) K/uL Lymph # (Auto) (1.20-3.40) K/uL [place] # (Auto) (0.11-0.59) K/uL Eos # (Auto) (0.00-0.50) K/uL Baso # (Auto) (0.00-0.20) K/uL Immature Gran # (Auto) (0.01-0.20) K/uL PT (9.0-12.0) Seconds INR (0.9-1.1) APTT (21-31) Seconds PTT Ratio Sodium (136-145) mmol/L Potassium (3.5-5.1) mmol/L Chloride (98-107) mmol/L Carbon Dioxide (21-32) mmol/L Anion Gap (3-11) BUN (6-23) mg/dl Creatinine (0.6-1.2) mg/dl Est Cr Clr Drug Dosing ml/min Est GFR ( Amer) ml/min Est GFR (Non-Af Amer) ml/min BUN/Creatinine Ratio (10-20) Glucose (70-99(Fasting)) mg/dl Lactate (0.4-2.0) mmol/L Calcium (8.6-10.3) mg/dl Magnesium (1.7-2.4) mg/dl Total Bilirubin (0.2-1.0) mg/dl AST (13-39) U/L ALT (7-52) U/L Alkaline Phosphatase (34-104) U/L Troponin I High Sens (0-14) pg/ml Total Protein (6.0-8.3) gm/dl Albumin (3.4-5.0) gm/dl Globulin (2.5-4.0) gm/dl Albumin/Globulin Ratio (0.9-2) Lipase (11-82) U/L Procalcitonin (0-0.5) ng/ml Urine Color Yellow Urine Appearance Clear (Clear) Urine pH 5.5 (4.5-7.5) Ur Specific [place] 1.025 (1.000-1.030) Urine Protein 2+ H (Negative) Urine Glucose (UA) Negative (Negative) Urine Ketones Negative (Negative) Urine Blood Negative (Negative) Urine Nitrite Negative (Negative) Urine Bilirubin Negative (Negative) Urine Urobilinogen Negative (Negative) Ur Leukocyte Esterase Negative (Negative) Urine RBC 0-2 (0-2) /hpf Urine WBC 0-5 (0-5) /hpf Ur Epithelial Cells 6-10 H (0-2) /hpf Urine Bacteria 1+ H (None Seen) Urine Mucus Present A (None Prsent) Nasal Screen MRSA (PCR) Negative (Negative) Adenovirus (PCR) (NotDetected) B. pertussis DNA (PCR) (NotDetected) B.parapertussis DNA PCR (NotDetected) C. pneumoniae DNA (PCR) (NotDetected) Coronavirus OC43 (PCR) (NotDetected) Coronavirus HKU1 (PCR) (NotDetected) Coronavirus 229E (PCR) (NotDetected) SARS-CoV-2 (PCR) (NotDetected) Coronavirus NL63 (PCR) (NotDetected) Human Metapneumovir PCR (NotDetected) Influenza Type A (PCR) (NotDetected) Influenza Type B (PCR) (NotDetected) M. pneumoniae (PCR) (NotDetected) Parainfluenza 1 (PCR) (NotDetected) Parainfluenza 2 (PCR) (NotDetected) Parainfluenza 3 (PCR) (NotDetected) Parainfluenza 4 (PCR) (NotDetected) RSV (PCR) (NotDetected) Entero/Rhino (PCR) (NotDetected) Imaging Data Radiologist's Impression: Chest X-Ray 10/17/23 12:32 XR chest 1V portable CLINICAL HISTORY: Dyspnea TECHNIQUE: Single frontal radiograph of the chest was obtained. Comparison: Comparison is made to chest radiograph 06/12/2023 FINDINGS: No lines and tubes are seen. Cardiomegaly is noted. The aortic arch is calcified. Multifocal airspace opacities are seen most prominently left lower lung. Small left pleural effusion. IMPRESSION: 1. Multiple airspace opacities compatible with pneumonia and/or aspiration. 2. Small left pleural effusion. ACT 112: Negative or not required by law. Electronically signed by: Junito Baxter M.D. 10/17/2023 2:03 PM Abdomen/Pelvis CT 10/17/23 13:[address] WITH IV CONTRAST CT DOSE: 2779.25 mGy.cm HISTORY: chest/abd pain, fever TECHNIQUE: Multiaxial CT images of the abdomen and pelvis were performed following the use of intravenous contrast. A dose lowering technique was utilized adhering to the principles of ALARA. COMPARISON STUDY: Abdomen and pelvis CT 11/16/2020. FINDINGS: Patchy consolidation within the left lower lobe is better appreciated on the same day chest CTA. There is a calcified granuloma within the right lower lobe. No pneumoperitoneum. No pneumatosis. Posterior decompression fusion from T12 through S1 with pedicle screws and rods. The L4 and L5 pedicle screws have been removed. Mild periprosthetic lucency at the T12 pedicle screws with the tips entering the T11-T12 disc space. No acute fractures. The heart remains mildly enlarged. Mild circumferential thickening within the distal esophagus. Mild body wall edema is noted. Mild hepatic steatosis. No hepatic masses. Subtle nodular contour to the liver with mild hypertrophy left hepatic lobe. This suggests early changes of cirrhosis. The main portal vein is patent. Surgical clips are noted within the upper abdomen. The gallbladder is mildly distended, unchanged. No gallbladder wall thickening. The pancreas contains a few calcifications at the tail. There is a 9 mm hypodense lesion within the spleen. This is densely too small to characterize but favors a benign lesion. Mild nodular thickening of the left adrenal gland. There is a stable 1 cm right adrenal myelolipoma. Calcified plaque within the normal caliber abdominal aorta. No retroperitoneal or pelvic lymphadenopathy. No pelvic free fluid. The bladder is decompressed by Forte catheter. The uterus and bilateral adnexa are unremarkable. No hydronephrosis. Normal left kidney. A 5 mm hypodense lesion within the right kidney is too small to characterize but favors a cyst. Colonic diverticulosis. No evidence for acute diverticulitis. No bowel wall thickening or obstruction. Normal appendix. IMPRESSION: 1. Patchy consolidation within the left lower lobe is better appreciated on the same day chest CTA. This favors a pneumonia. 2. Mild circumferential thickening of the distal esophagus. 3. No evidence for bowel obstruction. 4. Colonic diverticulosis. No evidence for acute diverticulitis. 5. Normal appendix. 6. Additional findings as described above. ACT 112: Negative or not required by law. Electronically signed by: Alvin Mcmillan M.D. 10/17/2023 2:51 PM Chest CTA 10/17/23 13:15 CT angio chest PE protocol CLINICAL HISTORY: cough, fever, epigastric/chest pain TECHNIQUE: Multidetector row helical CT of the chest was performed with angiographic protocol. Coronal and sagittal reformations were obtained. Coronal and sagittal MIPS were obtained from the axial data set and were submitted for review. Automated dose lowering techniques and/or adjustment according to patient size were utilized for this exam. Comparison: Comparison is made to CT abdomen pelvis 06/29/2021 FINDINGS: Lungs and pleura: Diffuse centrilobular emphysema is seen most prominent in the upper lobes. Bibasilar opacities are seen throughout the left lung with a few groundglass opacities in the right lung is well. Heart and pericardium: Cardiomegaly is seen with biatrial enlargement. Vessels: No evidence of pulmonary embolism. Mediastinum and ravi: Bronchial wall thickening, distention of the esophagus and esophageal fluid is seen. Chest wall and lower neck: Unremarkable. Abdomen: Patient is status post cholecystectomy. A moderate hiatal hernia is seen. Bones: Degenerative changes in the thoracic spine. IMPRESSION: No pulmonary embolus. Multifocal airspace opacities are seen compatible with pneumonia with or without superimposed aspiration. ACT 112: Negative or not required by law. Electronically signed by: Junito Baxter M.D. 10/17/2023 2:[address] 10/17/23 13:15 CT OF THE HEAD WITHOUT CONTRAST CLINICAL HISTORY: Headache. COMPARISON STUDY: Head CT June 29, 2021. TECHNIQUE: Helical axial images of the head were obtained without IV contrast. Automated exposure control was utilized for the study. A dose lowering technique was utilized adhering to the principles of ALARA. FINDINGS: No acute intracranial hemorrhage, midline shift or mass effect is present. White matter hypodensities are unchanged and favor small vessel disease. The ventricular system is unremarkable. The basal cisterns are patent. No extra-axial collections are present. There are no findings to suggest acute dural sinus thrombosis or acute territorial infarct. No significant calvarial abnormalities are present. Visualized portions of the sinuses and mastoid air cells are clear. IMPRESSION: No acute intracranial findings. No change in appearance of the brain. ACT 112: Negative or not required by law. Electronically signed by: Chriss Naranjo M.D. 10/17/2023 2:30 PM MDM Narrative Patient was seen and evaluated as above in room A04. Review was performed of nursing notes and vital signs. I did review pertinent previous visits and patient history. After obtaining a thorough history and physical examination the above work up was performed. Patient presents to us today during a period of elevated volume and acuity. Patient presents to us today for evaluation of fever, hallucinations, cough, headache, chest pain/lower abdominal pain. Options of care were discussed with the patient. I immediately initiated sepsis orders to include blood cultures, broad-spectrum antibiotics, and 30/kg fluid as the patient is borderline hypotensive, tachycardic and borderline febrile noting history of sepsis as well. Based on patient's ideal body weight we will proceed with about 1640 mL of NSS. In addition, IV Zosyn also ordered. CT imaging also ordered. Chest x-ray was performed per my interpretation pneumonia noted. CT scan of the head was negative for acute process. CT scan of the chest shows multifocal pneumonia. CT scan of the abdomen pelvis also sees a pneumonia without any other emergent finding. Leukocytosis 16.7. Mild anemia hemoglobin 11.8. Coags normal. There is glucose 184. Lactate 3.1. Hypomagnesemia 1.4. Troponin mildly elevated 32.9. Lipase normal. Procalcitonin elevated at 0.88. Urinalysis mild bacteria but less likely to be today's source of sepsis. Pulmonary source felt to be most likely. CT imaging of the head Noncon without significant process. Bio fire panel negative. Will proceed with admission. Case discussed with hospitalist service. Please refer to further documentation regarding her stay. Case was discussed with the attending physician. An EKG was performed and reveals normal sinus rhythm at a rate of 97 bpm. QTc 454. QRS 96. No ST elevation. GCS: 15 In the evaluation and treatment of this patient the following differential diagnoses were entertained: Sepsis, WI, PE, pneumonia, pneumothorax, dissection, intra-abdominal infectious etiology, UTI, pyelonephritis, among others Impression & Plan Sepsis, Hypoxia, Multifocal pneumonia, Hallucination, Cough Discharge Plan Visit Data Chief Complaint: Lethargic Stated Complaint: weakness, migraine, back pain, leg pain ED Provider: Miguel A Martins ED Midlevel Provider: Mason Zayas Discharge Problem: Sepsis, Hypoxia, Multifocal pneumonia, Hallucination, Cough Patient Disposition: Admitted As Inpatient Condition: Good Discharge Instructions Interventions: ED Discharge Assessment Last Done: 10/17/23 16:17
[2023-10-17 13:38] LABS: Albumin Globulin Ratio 1.4 (0.9-2); Albumin Level 4.1 gm/dl (3.4-5.0); BUN Creatinine Ratio 16.4 (10-20); Bilirubin,Total 0.4 mg/dl (0.2-1.0); Calcium 9.1 mg/dl (8.6-10.3); Est GFR (African American) 55.3 ml/min; Est GFR (Non-African American) 47.7 ml/min; Magnesium 1.4 mg/dl (1.7-2.4); Potassium 4.7 mmol/L (3.5-5.1); Total Protein 7.1 gm/dl (6.0-8.3)
[2023-10-17 13:42] LABS: Troponin I High Sensitivity 32.9 pg/ml (0-14)
[2023-10-17] MEDS: SODIUM CHLORIDE 0.9% 1,000 ML IV SCH (13:42)
[2023-10-17] MEDS: OPTIRAY 320 125ml IV ONE (14:04)
--- NOTE | 2023-10-17 14:04 | XRay Report ---
XR chest 1V portable CLINICAL HISTORY: Dyspnea TECHNIQUE: Single frontal radiograph of the chest was obtained. Comparison: Comparison is made to chest radiograph 06/12/2023 FINDINGS: No lines and tubes are seen. Cardiomegaly is noted. The aortic arch is calcified. Multifocal airspace opacities are seen most prominently left lower lung. Small left pleural effusion. IMPRESSION: 1. Multiple airspace opacities compatible with pneumonia and/or aspiration. 2. Small left pleural effusion. ACT 112: Negative or not required by law. Electronically signed by: Junito Baxter M.D. 10/17/2023 2:03 PM
[2023-10-17 14:12] LABS: Adenovirus PCR Not Detected (NotDetected); Bordetella parapertussis PCR Not Detected (NotDetected); Bordetella pertussis PCR Not Detected (NotDetected); Chlamydia pneumoniae PCR Not Detected (NotDetected); Coronavirus 229E PCR Not Detected (NotDetected); Coronavirus CoV-2 (COVID19)PCR Not Detected (NotDetected); Coronavirus HKU1 PCR Not Detected (NotDetected); Coronavirus NL63 PCR Not Detected (NotDetected); Coronavirus OC43PCR Not Detected (NotDetected); Human Metapneumovirus PCR Not Detected (NotDetected); Influenza A PCR Not Detected (NotDetected); Influenza B PCR Not Detected (NotDetected); Mycoplasma pneumoniae PCR Not Detected (NotDetected); Parainfluenza Virus 1 PCR Not Detected (NotDetected); Parainfluenza Virus 2 PCR Not Detected (NotDetected); Parainfluenza Virus 3 PCR Not Detected (NotDetected); Parainfluenza Virus 4 PCR Not Detected (NotDetected); Respiratory Syncytial VirusPCR Not Detected (NotDetected); Rhinovirus/Enterovirus PCR Not Detected (NotDetected)
[2023-10-17 14:14] LABS: Appearance Urine Clear (Clear); Bilirubin Urine Negative (Negative); Blood Urine Negative (Negative); Color Urine Yellow; Glucose Urine UA Negative (Negative); Ketones Urine Negative (Negative); Leukocyte Esterase Urine Negative (Negative); Nitrite Urine Negative (Negative); Protein Urine 2+ (Negative); Specific Gravity Urine 1.025 (1.000-1.030); Urobilinogen Urine Negative (Negative); pH Urine 5.5 (4.5-7.5)
[2023-10-17 14:17] LABS: Partial Thromboplastin Ratio 0.9; Partial Thromboplastin Time 24 Seconds (21-31); Prothrombin Time 10.8 Seconds (9.0-12.0)
--- NOTE | 2023-10-17 14:31 | CT Scan Report ---
CT OF THE HEAD WITHOUT CONTRAST CLINICAL HISTORY: Headache. COMPARISON STUDY: Head CT June 29, 2021. TECHNIQUE: Helical axial images of the head were obtained without IV contrast. Automated exposure con trol was utilized for the study. A dose lowering technique was utilized adhering to the principles o f ALARA. FINDINGS: No acute intracranial hemorrhage, midline shift or mass effect is present. White matter hyp odensities are unchanged and favor small vessel disease. The ventricular system is unremarkable. The basal cisterns are patent. No extra-axial collections are present. There are no findings to suggest a cute dural sinus thrombosis or acute territorial infarct. No significant calvarial abnormalities are present. Visualized portions of the sinuses and mastoid air cells are clear. IMPRESSION: No acute intracranial findings. No change in appearance of the brain. ACT 112: Negative or not required by law. Electronically signed by: Chriss Naranjo M.D. 10/17/2023 2:30 PM
[2023-10-17 14:39] LABS: Mucus Urine Present (None Prsent); RBC Urine 0-2 /hpf (0-2); WBC Urine 0-5 /hpf (0-5)
[2023-10-17 14:40] LABS: Bacteria Urine 1+ (None Seen)
--- NOTE | 2023-10-17 14:52 | History & Physical Report ---
Date of Service October 17, 2023 Assessment & Plan (1) Aspiration pneumonia: Plan: Acute onset of fever, SOB, and hypoxia the morning of 10/16 Leukocytosis at 16.70 with neutrophil predominance; normotensive CXR revealed multifocal airspace opacities most prominently in the left lower lung Chest CTA revealed airspace opacities consistent with pneumonia ABG ordered, pending MRSA swab ordered, pending Zosyn 4.5 g IV q8h Follow blood cultures Incentive spirometry, flutter valve Speech therapy evaluations appreciated NPO until seen by speech therapy, then advance to minced/moist diet as tolerated Will plan on p.o. meds to restart on 10/17 Dose reduce gabapentin from 600mg--> 300 mg p.o. TID Acetaminophen IV as needed for pain/fever A.m. CBC, BMP (2) Acute and chronic respiratory failure with hypoxia: Plan: Patient is on supplemental oxygen at baseline Hypoxic at 83% on 3L NC on the morning of 10/16 Titrate supplemental oxygen to maintain SpO2 89-92% Continuous pulse oximetry (3) Sepsis: Plan: Procalcitonin mildly elevated at 0.88 Lactate elevated at 3.1, repeat pending Normotensive Continue gentle IV resuscitation with LR at 100mL/hr x 2 L Antibiotics (as above) (4) Hypomagnesemia: Plan: Magnesium 1.4 on arrival Magnesium sulfate 1 g x 3 Recheck a.m. mag (5) Type 2 diabetes mellitus: Plan: Last A1c at 7.4% on 07/12/2023 Hold metformin, Trulicity SSI; with target BSG range 110-140mg/dL, CF 50, carb ratio 15 T2DM diet BSG q6h while NPO, then BSG ACHS once eating Adjust regimen as needed AM A1c (6) Elevated troponin: Plan: Elevated troponin at 32.9 on arrival, repeat pending Daughter reports that the patient noted substernal chest pain upon waking; may be secondary to aspiration pneumonia Continuous telemetry monitoring for now (7) Fall: Plan: Fall times 2 in the morning of 10/16; no LOC; no head strike Head CT revealed no acute findings Fall precautions PT/OT evaluations appreciated (8) Hypertension: Plan: Continue lisinopril, diltiazem Discussed with pharmacy; will switch diltiazem formulation from 180 mg CD --> 45mg IR p.o. QID as she requires this medication crushed/opened for oral administration Hold hydrochlorothiazide and Lasix while n.p.o. and receiving fluids (9) Restless leg syndrome: Plan: Continue ropinirole (10) Sleep apnea: Plan: Patient is unable to tolerate CPAP at night Plan Disposition: Admit to [facility] telemetry Conditional code: Patient is okay with CPR/defibrillation, but no intubation under any circumstances N.p.o. for now, then advanced to AHA/T2DM minced, moist diet as tolerated (aspiration precautions) VTE PPx: Lovenox 40 mg SQ q24h History of Present Illness Chief Complaint: SOB, fever Primary Care Provider: Manny Bland DO Silvia is a 78-year-old female with PMH of COPD, sleep apnea, hyperlipidemia, depression, severe proteincalorie malnutrition, DVT, and multifocal pneumonia. She presented on the morning of 10/16 for SOB, chills, fever, and hypoxia. Her oxygen level was reported to be 83% on 3L NC at home. Patient's daughter is present at the bedside and provides history, as patient is a poor historian at this time. Patient lives with both her daughter and son. She does have a history of aspiration pneumonia, especially when she does not use her teeth. Daughter believes she ate something last night and aspirated. She was fine when she went to bed last night, but then was found to be feverish around 101 F this morning and short of breath. Daughter also noticed that patient was endorsing visual hallucinations, which is common when she develops pneumonia. She is on supplemental oxygen at baseline (3L NC). She does not use a CPAP at night, as she is unable to tolerate it. Patient reports that she took all her regular morning medications today; no recent change in medications. She occasionally does take a water pill for her right lower extremity edema. She has frequently aspirated in the past, and normally sticks to a minced/moist diet. She ambulates with a walker at baseline, but did have 2 witnessed falls this morning. No head strike. No LOC. Patient is not on blood thinners. Patient is a former tobacco cigarette smoker, but quit last year in September; 1-2 PPD. Patient is tachypneic around 26 RPM at time of admission; SpO2 96% on 3L NC. ED course: Zosyn 4.5 g IV NSS 1000 mL IV ROS obtained from daughter: Patient endorses fever, chills, visual hallucinations, feeling off-balance, complains of substernal chest pain, and SOB at rest. Patient denies auditory hallucinations, cough, wheezing, abdominal pain, N/V/D, changes in urinary/bowel habits, dysuria, or burning with urination. Allergies Allergy/AdvReac Type Severity Reaction Status Date / Time atorvastatin [From Lipitor] Allergy Intermediate Skin Rash Verified 07/05/23 10:09 morphine AdvReac Intermediate Nausea Verified 07/05/23 10:09 Home Medications Medication Instructions Recorded Confirmed Type cholecalciferol (vitamin D3) 25 25 mcg PO QAM 05/03/20 10/17/23 History mcg (1,000 unit) tablet (Vitamin D3) cyanocobalamin (vitamin B-12) 1,000 mcg PO QAM 05/03/20 10/17/23 History 1,000 mcg tablet (Vitamin B-12) diltiazem HCl 180 mg 180 mg PO QAM 05/03/20 10/17/23 History capsule,extended release 24 hr duloxetine 30 mg capsule,delayed 30 mg PO QAM 05/03/20 10/17/23 History release (Cymbalta) duloxetine 60 mg capsule,delayed 60 mg PO QAM 05/03/20 10/17/23 History release gabapentin 600 mg tablet 600 mg PO TID 05/03/20 10/17/23 History pravastatin 40 mg tablet 40 mg PO QAM 05/03/20 10/17/23 History sucralfate 1 gram tablet (Carafate) 1 g PO ACHS PRN Indigestion 05/03/20 10/17/23 History albuterol sulfate 90 mcg/actuation 2 puff inhalation Q3H PRN 11/08/20 10/17/23 History aerosol inhaler Shortness Of Breath acetaminophen 325 mg tablet 650 mg (2 x 325 mg) PO Q4H PRN 11/10/20 10/17/23 Rx fever or pain #30 tabs diclofenac sodium 1 % topical gel 2 g topical QID PRN Pain 11/16/20 10/17/23 History oxycodone-acetaminophen 5 mg-325 1 tab PO Q8H PRN Pain 05/22/21 10/17/23 History mg tablet ondansetron HCl 4 mg tablet 4 mg PO Q6H PRN NAUSEA/VOMITING 07/31/21 10/17/23 History donepezil 5 mg tablet 5 mg PO DAILY 06/12/23 10/17/23 History dulaglutide 0.75 mg/0.5 mL 0.75 mg subcut WK 06/12/23 10/17/23 History subcutaneous pen injector (Trulicity) famotidine 40 mg tablet 40 mg PO HS 06/12/23 10/17/23 History furosemide 20 mg tablet (Lasix) 20 mg PO DAILY PRN Edema 06/12/23 10/17/23 History hydrochlorothiazide 25 mg tablet 25 mg PO DAILY 06/12/23 10/17/23 History lisinopril 10 mg tablet 10 mg PO DAILY 06/12/23 10/17/23 History metformin 500 mg tablet 1,000 mg PO BID 06/12/23 10/17/23 History omeprazole 20 mg capsule,delayed 20 mg PO QAM 06/12/23 10/17/23 History release ropinirole 1 mg tablet 1 mg PO HS 06/12/23 10/17/23 History tizanidine 4 mg tablet 4 mg PO Q8H PRN MUSCLE SPASMS 06/12/23 10/17/23 History trazodone 150 mg tablet 150 mg PO HS 06/12/23 10/17/23 History ezetimibe 10 mg tablet 10 mg PO DAILY 10/17/23 10/17/23 History lidocaine 5 % topical patch 1 patch transdermal DAILY 10/17/23 10/17/23 History Past Med/Surg History Problem List (Updated 10/17/23 @ 15:45 by Alvin Calvin PA-C) Fall Elevated troponin Restless leg syndrome Hypertension Type 2 diabetes mellitus Cough (Acute) Sepsis (Acute) Aspiration pneumonia Acute and chronic respiratory failure with hypoxia Sleep apnea unable to tolerate cpap Chronic hypercapnic respiratory failure Hypoxia (Acute) Achalasia, esophageal Hypomagnesemia Hypoxia (Acute) Hypotension (Acute) Respiratory failure (Acute) Multifocal pneumonia (Acute) Hallucination (Acute) MATT (acute kidney injury) Pneumonia MATT (acute kidney injury) Hyponatremia Acute blood loss anemia Abdominal distension S/P lumbar spine operation Neurogenic claudication due to lumbar spinal stenosis Encounter for pre-operative examination Nausea & vomiting (Acute) anytime eats or drinks, per pt and granddaughter was thought to be d/t mucus from smoking as does not happen when not smoking during hospitalizations Acute lumbar radiculopathy (Acute) Vitamin B12 deficiency Vitamin D deficiency AAA (abdominal aortic aneurysm) pt denies DVT prophylaxis Weight loss Severe protein-calorie malnutrition Clubbing of nail COPD (chronic obstructive pulmonary disease) Sensorineural hearing loss (SNHL) of both ears Otalgia Vocal cord polyps Cerumen impaction Polypharmacy (Acute) Lethargy (Acute) Vomiting (Acute) Acute respiratory failure with hypoxia Abnormal CT scan, esophagus Regurgitation of food Esophageal dysmotility Dysphagia Depression Obesity Chronic low back pain Hyperlipidemia Medical History Aspiration pneumonia SHELDON on CPAP not using cpap Pneumonia Hypoxia Acute and chronic respiratory failure with hypoxia Sepsis Headache History of esophageal dilatation Peripheral neuropathy Weight loss, unintentional Chronic obstructive pulmonary disease inhaler prn; O2 sats 90-94% per pt and granddaughter, they report qualifying walking test however that follow-up test was then normal, patient is not currently on supplemental oxygen, they deny recent walking desat test Dysphagia Schatzki's ring Encounter for pre-operative examination Current smoker Quit smoking 06/13/21 Restless leg syndrome Diabetes mellitus type 2 in obese NIDDM GERD (gastroesophageal reflux disease) Peptic ulcer disease (~2017) bleeding ulcer HTN (hypertension), benign Surgical History (Updated 07/18/23 @ 00:08 by Teresa Aguirre) History of cataract surgery bilateral S/P epidural steroid injection History of colonoscopy History of esophagogastroduodenoscopy (EGD) History of bilateral tubal ligation History of carpal tunnel release Left History of repair of rotator cuff Right History of lumbar fusion Family History Father Heart disease Brother Kidney disease Mother Gastric cancer Family/Other Testicular cancer Other No family history of adverse response to anesthesia Social History Smoking Status: Former smoker Tobacco Type: Cigarettes Age Started Using Tobacco: 11; Cigarettes Per Day: quit in 2022; Second Hand Exposure: Yes; Do You Dip or Chew Tobacco: No; Tobacco Cessation Education Requested by Patient: No Hx Alcohol Use: No Hx Substance Use: No Preferred Language: Maori Communication Ability: Effective 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 Beliefs That Will Affect Care: Judaism marital status: / Current Living Situation: Family Current Living Situation Comment: lives with daughter her brother and grandson Other Information That Helps Us Care for You: No Feels Safe at Home: Yes Safety Concerns: Feels Safe At This Time Assistive Devices: Oxygen - Continuous Review of Systems Review of Systems: See HPI above Physical Exam Physical Exam: General: Lethargic; mild respiratory distress; non-toxic appearing; frail appearing; cooperative; SpO2 96% on 3L NC HEENT: normocephalic, atraumatic; no scleral icterus; PERRLA; moist mucus membrane; unable to assess vision and hearing Neck: supple; no lymphadenopathy; trachea midline Skin: Skin is warm to touch; warm, dry without signs of tenting; no cyanosis; no rashes, bruising, lesions, or erythema noted CV: chest wall NTP; RRR; S1/S2 normal; no murmurs/rubs/gallops; pulses intact and symmetric at radial, DP, and PT Lungs: Mild respiratory distress; symmetrical chest wall expansion; bibasilar wheezing worse in the right lower lung; diminished breath sounds in the left lower lung ABD: Soft, NTP; BS present; no rebound/guarding; no distention MSK: no tics or fasciculations; no edema noted in the LEs b/l, nonerythematous Neuro: Lethargic; patient's speech is incoherent; unclear if alert and oriented, but may be able to recite ; no focal deficits; patient endorses sensation is intact and symmetric in the LEs bilaterally Results & Data Results & Data Vital Signs (Past 12 Hours) Vital Signs Temp Pulse Pulse Resp BP BP Pulse Ox 10/17/23 14:37 84 26 H 136/73 96 10/17/23 13:20 96 H 10/17/23 12:29 37.5 C 103 H 20 94/60 L 90 O2 Del Method O2 Flow Rate 10/17/23 14:37 Nasal Cannula 3 10/17/23 13:20 10/17/23 12:29 Nasal Cannula 3 Laboratory Results Abnormal lab results 10/17/23 10/17/23 10/17/23 Range/Units 12:56 13:27 13:50 WBC 16.70 H (4.8-10.8) K/ul RBC 4.12 L (4.20-5.40) M/uL Hgb 11.8 L (12.0-16.0) g/dl Hct 36.1 L (37.0-47.0) % Neut # (Auto) 14.87 H (1.40-6.50) K/uL Lymph # (Auto) 0.68 L (1.20-3.40) K/uL Jackson # (Auto) 1.03 H (0.11-0.59) K/uL Glucose 184 H (70-99(Fasting)) mg/dl Lactate 3.1 H* (0.4-2.0) mmol/L Magnesium 1.4 L (1.7-2.4) mg/dl Troponin I High Sens 32.9 H (0-14) pg/ml Procalcitonin 0.88 H (0-0.5) ng/ml Urine Protein 2+ H (Negative) Ur Epithelial Cells 6-10 H (0-2) /hpf Urine Bacteria 1+ H (None Seen) Urine Mucus Present A (None Prsent) Diagnostic Findings Chest X-Ray 10/17/23 12:32 XR chest 1V portable CLINICAL HISTORY: Dyspnea TECHNIQUE: Single frontal radiograph of the chest was obtained. Comparison: Comparison is made to chest radiograph 06/12/2023 FINDINGS: No lines and tubes are seen. Cardiomegaly is noted. The aortic arch is calcified. Multifocal airspace opacities are seen most prominently left lower lung. Small left pleural effusion. IMPRESSION: 1. Multiple airspace opacities compatible with pneumonia and/or aspiration. 2. Small left pleural effusion. ACT 112: Negative or not required by law. Electronically signed by: Junito Baxter M.D. 10/17/2023 2:[address] 10/17/23 13:15 CT OF THE HEAD WITHOUT CONTRAST CLINICAL HISTORY: Headache. COMPARISON STUDY: Head CT June 29, 2021. TECHNIQUE: Helical axial images of the head were obtained without IV contrast. Automated exposure control was utilized for the study. A dose lowering technique was utilized adhering to the principles of ALARA. FINDINGS: No acute intracranial hemorrhage, midline shift or mass effect is present. White matter hypodensities are unchanged and favor small vessel disease. The ventricular system is unremarkable. The basal cisterns are patent. No extra-axial collections are present. There are no findings to suggest acute dural sinus thrombosis or acute territorial infarct. No significant calvarial abnormalities are present. Visualized portions of the sinuses and mastoid air cells are clear. IMPRESSION: No acute intracranial findings. No change in appearance of the brain. ACT 112: Negative or not required by law. Electronically signed by: Chriss Naranjo M.D. 10/17/2023 2:30 PM ECG Additional Comments: ECG revealed NSR at 97 bpm; QTc 454 Code Status & VTE Plan Code Status Conditional code (discussed with daughter at bedside; patient had previously stated she would be okay with CPR/defibrillation, but would not want intubation under any circumstances) VTE Prophylaxis Plan VTE Prophylaxis will be ordered: Yes Supervising Physician Co-Signing Physician Notes Patient was seen and examined in the emergency room, she brought here with change in mental status, hallucinations , patient is somewhat obtunded, cannot provide any history, denies CT of the chest shows recurrent pneumonia, procalcitonin elevated, patient is on is the same amount of oxygen, appears to be comfortable, as per daughter she is not following speech therapist recommendations on her diet, which supposed to be modified Plan Admit to telemetry IV antibiotics Consult speech therapist Oxygen supplement Obtain ABG, patient noncompliant with CPAP I would minimize her meds, such as narcotics, decrease dose of Neurontin, tizanidine, Requip that may contribute to her mental status change and aspiration Agree with above assessment and plan PG Care Time/CCT Total # of Minutes Spent Total Time Spent with Patient: Total time spent is greater than 50% in coordination of care (as documented) at patient's floor/unit and/or counseling patient: Coding [place] [address] INT INP/OBS CARE 375MIN Patient Type Established History Comprehensive Exam Comprehensive Medical Decision Making High Complexity Diagnoses Aspiration pneumonia J69.0 Aspiration pneumonia type: unspecified Acute and chronic respiratory failure with hypoxia J96.21 Sepsis A41.9 Hypomagnesemia E83.42 Type 2 diabetes mellitus E11.9 Elevated troponin R79.89 Fall W19.XXXA Hypertension I10 Restless leg syndrome G25.81 Sleep apnea G47.30 (1) Aspiration pneumonia Aspiration pneumonia type: unspecified
--- NOTE | 2023-10-17 14:53 | CT Scan Report ---
ABDOMEN AND PELVIS CT WITH IV CONTRAST CT DOSE: 2779.25 mGy.cm HISTORY: chest/abd pain, fever TECHNIQUE: Multiaxial CT images of the abdomen and pelvis were performed following the use of intrave nous contrast. A dose lowering technique was utilized adhering to the principles of ALARA. COMPARISON STUDY: Abdomen and pelvis CT 11/16/2020. FINDINGS: Patchy consolidation within the left lower lobe is better appreciated on the same day chest CTA. There is a calcified granuloma within the right lower lobe. No pneumoperitoneum. No pneumatosis . Posterior decompression fusion from T12 through S1 with pedicle screws and rods. The L4 and L5 pedi meggan screws have been removed. Mild periprosthetic lucency at the T12 pedicle screws with the tips ent ering the T11-T12 disc space. No acute fractures. The heart remains mildly enlarged. Mild circumferen tial thickening within the distal esophagus. Mild body wall edema is noted. Mild hepatic steatosis. N o hepatic masses. Subtle nodular contour to the liver with mild hypertrophy left hepatic lobe. This s uggests early changes of cirrhosis. The main portal vein is patent. Surgical clips are noted within t he upper abdomen. The gallbladder is mildly distended, unchanged. No gallbladder wall thickening. The pancreas contains a few calcifications at the tail. There is a 9 mm hypodense lesion within the sple en. This is densely too small to characterize but favors a benign lesion. Mild nodular thickening of the left adrenal gland. There is a stable 1 cm right adrenal myelolipoma. Calcified plaque within the normal caliber abdominal aorta. No retroperitoneal or pelvic lymphadenopathy. No pelvic free fluid. The bladder is decompressed by Forte catheter. The uterus and bilateral adnexa are unremarkable. No h ydronephrosis. Normal left kidney. A 5 mm hypodense lesion within the right kidney is too small to ch aracterize but favors a cyst. Colonic diverticulosis. No evidence for acute diverticulitis. No bowel wall thickening or obstruction. Normal appendix. IMPRESSION: 1. Patchy consolidation within the left lower lobe is better appreciated on the same day chest CTA. T his favors a pneumonia. 2. Mild circumferential thickening of the distal esophagus. 3. No evidence for bowel obstruction. 4. Colonic diverticulosis. No evidence for acute diverticulitis. 5. Normal appendix. 6. Additional findings as described above. ACT 112: Negative or not required by law. Electronically signed by: Alvin Mcmillan M.D. 10/17/2023 2:51 PM
--- NOTE | 2023-10-17 14:58 | CT Scan Report ---
CT angio chest PE protocol CLINICAL HISTORY: cough, fever, epigastric/chest pain TECHNIQUE: Multidetector row helical CT of the chest was performed with angiographic protocol. Fitzgerald l and sagittal reformations were obtained. Coronal and sagittal MIPS were obtained from the axial jose a set and were submitted for review. Automated dose lowering techniques and/or adjustment according to patient size were utilized for this exam. Comparison: Comparison is made to CT abdomen pelvis 06/29/2021 FINDINGS: Lungs and pleura: Diffuse centrilobular emphysema is seen most prominent in the upper lobes. Bibasila r opacities are seen throughout the left lung with a few groundglass opacities in the right lung is w ell. Heart and pericardium: Cardiomegaly is seen with biatrial enlargement. Vessels: No evidence of pulmonary embolism. Mediastinum and ravi: Bronchial wall thickening, distention of the esophagus and esophageal fluid is seen. Chest wall and lower neck: Unremarkable. Abdomen: Patient is status post cholecystectomy. A moderate hiatal hernia is seen. Bones: Degenerative changes in the thoracic spine. IMPRESSION: No pulmonary embolus. Multifocal airspace opacities are seen compatible with pneumonia with or withou t superimposed aspiration. ACT 112: Negative or not required by law. Electronically signed by: Junito Baxter M.D. 10/17/2023 2:57 PM
[2023-10-17] MEDS: PIPERACILLIN/TAZOBACTAM 4.5 GM/100 ML BAG IV ONE (15:11)
[2023-10-17] MEDS: LACTATED RINGER'S 1,000 ML IV SCH (16:07)
[2023-10-17] MEDS: MAGNESIUM SULFATE / D5W 1 GM/100 ML BAG IV SCH (16:07)
[2023-10-17] MEDS ORDERED: DEXTROSE 50% 50 ML SYRINGE IV PRN (16:49)
[2023-10-17] MEDS ORDERED: GLUCOSE 40% GEL 15 GM TUBE PO PRN (16:49)
[2023-10-17] MEDS ORDERED: ONDANSETRON INJ 2 MG/ML 2 ML VIAL IV PRN (16:49)
[2023-10-17] MEDS ORDERED: GLUCAGON FOR INJ 1 MG VIAL SQ PRN (16:49)
[2023-10-17] MEDS ORDERED: ALBUTEROL HFA 8 GM INHALER INH PRN (16:49)
[2023-10-17] MEDS ORDERED: GLUCOSE 10 TAB/TUBE PO PRN (16:49)
[2023-10-17] MEDS ORDERED: CARBOHYDRATES FOR HYPOGLYCEMIA PO PRN (16:49)
[2023-10-17] MEDS: INSULIN ASPART PER UNIT CHARGE SC SCH (18:04)
[2023-10-17 18:16] LABS: HCO3 ABG 29 mmol/L (19-24); Oxygen Saturation ABG 97.8 % (90-95); PCO2 ABG 46 mmHg (35-46); PO2 ABG 85 mmHg (80-95)
[2023-10-17 18:19] LABS: Allen Test Pos (Pos)
[2023-10-17] MEDS: ACETAMINOPHEN 1,000 MG/100 ML VIAL IV PRN (20:08)
[2023-10-17] MEDS: ENOXAPARIN INJ 40 MG/0.4 ML SYR SQ SCH (20:11)
[2023-10-17] MEDS: AMPICILLIN/SULBACTAM SOD 3,000 MG in SODIUM CHLOR 0.9% MINI-B 100 ML IV SCH (22:37)
[2023-10-17] MEDS: traZODone HCL 50 MG TAB PO SCH (22:40)
[2023-10-17] MEDS: rOPINIRole HCL 1 MG TABLET PO SCH (22:40)
[2023-10-17] MEDS: GABAPENTIN 300 MG CAP PO SCH (22:41)
[2023-10-18] MEDS: ACETAMINOPHEN 325 MG TAB PO PRN (04:52)
[2023-10-18 06:43] LABS: Basophils # (auto) 0.03 K/uL (0.00-0.20); Basophils % (auto) 0.2 %; Eosinophils # (auto) 0.07 K/uL (0.00-0.50); Eosinophils % (auto) 0.5 %; Hematocrit (blood only) 32.2 % (37.0-47.0); Hemoglobin 10.5 g/dl (12.0-16.0); Immature Granulocytes # (auto) 0.04 K/uL (0.01-0.20); Immature Granulocytes % (auto) 0.3 %; Lymphocytes # (auto) 1.04 K/uL (1.20-3.40); Lymphocytes % (auto) 7.6 %; Mean Corpuscular Hemoglobin 28.8 pg (25.0-34.0); Mean Corpuscular Hgb Conc 32.6 g/dL (32.0-36.0); Mean Corpuscular Volume 88.5 fL (80.0-100.0); Mean Platelet Volume 9.7 fL (9.4-12.4); Monocytes # (auto) 1.02 K/uL (0.11-0.59); Monocytes % (auto) 7.5 %; Neutrophils # (auto) 11.43 K/uL (1.40-6.50); Neutrophils % (auto) 83.9 %; Platelet Count 232 K/uL (130-400); RDW Coefficient of Variation 13.8 % (11.5-14.5); RDW Standard Deviation 44.7 fL (36.4-46.3); Red Blood Count 3.64 M/uL (4.20-5.40); White Blood Count 13.63 K/ul (4.8-10.8)
[2023-10-18 07:34] LABS: Estimated Average Glucose 163 mg/dl; Hemoglobin A1C 7.3 % (4.5-5.6)
[2023-10-18 07:35] LABS: Calcium 8.5 mg/dl (8.6-10.3); Potassium 4.1 mmol/L (3.5-5.1)
[2023-10-18 07:41] LABS: BUN Creatinine Ratio 15.5 (10-20); Est GFR (African American) 64.4 ml/min; Est GFR (Non-African American) 55.5 ml/min
[2023-10-18] MEDS: DULoxetine HCL 30 MG CAP PO SCH (08:01)
[2023-10-18] MEDS: lisinopril 10 MG TAB PO SCH (08:01)
[2023-10-18] MEDS: DONEPEZIL HCL 5 MG TAB PO SCH (08:01)
[2023-10-18] MEDS: LANSOPRAZOLE 30 MG SOLTAB PO SCH ×2 (08:01→20:48)
[2023-10-18] MEDS: DULoxetine HCL 60 MG CAP PO SCH (08:01)
[2023-10-18] MEDS: PRAVASTATIN SOD 40 MG TAB PO SCH (08:01)
[2023-10-18 08:13] LABS: Troponin I High Sensitivity 19.1 pg/ml (0-14)
[2023-10-18] MEDS ORDERED: GABAPENTIN 300 MG CAP PO SCH (09:00)
[2023-10-18] MEDS ORDERED: dilTIAZem HCL 30 MG TAB PO SCH (09:00)
[2023-10-18] MEDS: dilTIAZem HCl 60 MG TAB PO SCH (09:13)
[2023-10-18] MEDS: ACETAMINOPHEN 500 MG TAB PO SCH (09:13)
[2023-10-18] MEDS: oxyCODONE HCL IR 5 MG TAB (IMMEDIATE RELEASE) PO PRN (09:13)
[2023-10-18] MEDS: SUCRALFATE 1 GM/10 ML UDC PO SCH (12:24)
--- NOTE | 2023-10-18 13:25 | Hospitalist Progress Note ---
Date of Service October 18, 2023 Assessment & Plan (1) Aspiration pneumonia: Plan: CXR - multifocal airspace opacities most prominently in the left lower lung Chest CTA - airspace opacities b/l consistent with pneumonia MRSA swab neg Resp BioFire panel negative Day #2 IV Unasyn Blood cx's neg to date Remains stable on typical home O2 amount Speech therapy eval appreciated No changes in minced/moist diet at this time Compliance with such needed (2) Acute and chronic respiratory failure with hypoxia: Plan: Patient is on supplemental oxygen at baseline at home Hypoxic at 83% on 3L NC on the morning of 10/16 Titrate supplemental oxygen to maintain SpO2 88-92% Acute component 2nd to #1 Chronic component 2nd to COPD (3) Sepsis: Plan: 2nd to #1 blood cx's negative to date (4) Hypomagnesemia: Plan: Magnesium 1.4 on arrival Replaced Resolved (5) Type 2 diabetes mellitus: Plan: HbA1c - 7.3% Hold metformin, Trulicity Cont Novolog SSI Control adequate (6) Elevated troponin: Plan: Peak troponin 40 2nd to myocardial demand ischemia in setting of #1 above No evidence of ACS (7) Fall: Plan: Fall x 2 AM of 10/16 at home; no LOC; no head injury Head CT negative for ICH, fracture, etc No evidence of other bony injuries PT/OT evaluations appreciated (8) Hypertension: Plan: Continue lisinopril, diltiazem; switched latter from CD to IR Cont to hold hydrochlorothiazide and Lasix for now (9) Restless leg syndrome: Plan: Continue ropinirole Check Fe studies while here (10) Sleep apnea: Plan: Patient is unable to tolerate CPAP at night by report (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 to have repeat EGD tomorrow with Dr Valera, [facility], due to abnormal appearing esophagus on CT chest, dysphagia, prior history of esophageal issues, etc (12) COPD (chronic obstructive pulmonary disease): Plan: stable w/o exacerbation cont home inhalers, etc (13) Dysphagia: Plan: prior h/o achalasia s/o Heller Myotomy in 2021 - [facility] prior h/o Ebonie's [facility] consulted due to abnormal appearing esophagus on CT chest this admission (fluid, thickening, etc) to have EGD tomorrow increased her PPI to BID dosing added carafate cont pepcid (14) Abnormal CT scan, esophagus: Plan: as above (15) Achalasia, esophageal: Plan: type 2, known h/o such s/p Heller Myotomy 2021 [facility] Plan VTE PPx: Lovenox 40 mg SQ q24h Admission and Anticipated Discharge Date Admission Date: October 17, 2023 Subjective patient reports that her breathing is improved today still with cough some sputum but no dyspnea at rest denies chest pain or chest tightness she does report some dysphagia at times at home no odynophagia no abd pain had Heller myotomy at [facility] in 2021 for Type 2 Achalasia if she does not follow a minced/moist diet her swallowing is much more difficult and she will vomit/regurgitate at times is on home O2 at home Review of Systems Review of Systems: gen - no fevers; eating well today cv - no cp pulm - no dyspnea at rest GI - no abd pain Physical Exam Physical Exam: gen - sitting in chair, NAD, occasional cough neck - no JVD mouth - MMM, no thrush heart - RRR, s1 s2 lungs - b/l basilar rales worse on left, CTA b/l apices, no increased work of breathing abd - soft NT ND BS+ ext - no edema, pulses 2+ b/l skin - clubbing of fingernails psych - poor historian Results & Data Results & Data Vital Signs (Past 12 Hours) Vital Signs Temp Pulse Pulse Resp BP BP Pulse Ox 10/18/23 12:23 36.5 C 79 18 119/70 96 10/18/23 10:13 10/18/23 08:29 36.8 C 57 L 16 130/75 94 10/18/23 07:35 78 10/18/23 04:00 36.7 C 82 18 120/62 93 O2 Del Method O2 Flow Rate 10/18/23 12:23 Nasal Cannula 3 10/18/23 10:13 Nasal Cannula 3 10/18/23 08:29 Nasal Cannula 3 10/18/23 07:35 10/18/23 04:00 Nasal Cannula 3 Laboratory Results Laboratory Results - last 24 hr 10/18/23 10/18/23 10/18/23 05:37 08:03 12:09 WBC 13.63 H RBC 3.64 L Hgb 10.5 L Hct 32.2 L MCV 88.5 MCH 28.8 MCHC 32.6 RDW Std Deviation 44.7 RDW Coeff of [place] 13.8 Plt Count 232 MPV 9.7 Immature Gran % (Auto) 0.3 Neut % (Auto) 83.9 Lymph % (Auto) 7.6 [place] % (Auto) 7.5 Eos % (Auto) 0.5 Baso % (Auto) 0.2 Neut # (Auto) 11.43 H Lymph # (Auto) 1.04 L [place] # (Auto) 1.02 H Eos # (Auto) 0.07 Baso # (Auto) 0.03 Immature Gran # (Auto) 0.04 Sodium 135 L Potassium 4.1 Chloride 97 L Carbon Dioxide 32 Anion Gap 6 BUN 15 Creatinine 0.97 Est Cr Clr Drug Dosing 50.0 Est GFR ( Amer) 64.4 Est GFR (Non-Af Amer) 55.5 BUN/Creatinine Ratio 15.5 Glucose 143 H POC Glucose 169 H 180 H Estimat Average Glucose 163 Hemoglobin A1c 7.3 H Calcium 8.5 L Magnesium 2.0 Troponin I High Sens 19.1 H D 10/18/23 10/18/23 16:41 19:51 WBC RBC Hgb Hct MCV MCH MCHC RDW Std Deviation RDW Coeff of [place] Plt Count MPV Immature Gran % (Auto) Neut % (Auto) Lymph % (Auto) [place] % (Auto) Eos % (Auto) Baso % (Auto) Neut # (Auto) Lymph # (Auto) [place] # (Auto) Eos # (Auto) Baso # (Auto) Immature Gran # (Auto) Sodium Potassium Chloride Carbon Dioxide Anion Gap BUN Creatinine Est Cr Clr Drug Dosing Est GFR ( Amer) Est GFR (Non-Af Amer) BUN/Creatinine Ratio Glucose POC Glucose 187 H 130 H Estimat Average Glucose Hemoglobin A1c Calcium Magnesium Troponin I High Sens PG Care Time/CCT Total # of Minutes Spent Total Time Spent with Patient: Total time spent is greater than 50% in coordination of care (as documented) at patient's floor/unit and/or counseling patient: Coding Level of Care Code 34719 SUB INP/OBS CARE 3/50MIN Diagnoses Aspiration pneumonia J69.0 Aspiration pneumonia type: unspecified Acute and chronic respiratory failure with hypoxia J96.21 Sepsis A41.9 Hypomagnesemia E83.42 Type 2 diabetes mellitus E11.9 Elevated troponin R79.89 Fall W19.XXXA Hypertension I10 Restless leg syndrome G25.81 Sleep apnea G47.30 Schatzki's ring K22.2 Chronic obstructive pulmonary disease with acute exacerbation J44.1 COPD type: COPD with acute exacerbation Dysphagia R13.[address] scan, esophagus R93.3 Achalasia, esophageal K22.0 (1) Aspiration pneumonia Aspiration pneumonia type: unspecified (12) COPD (chronic obstructive pulmonary disease) COPD type: COPD with acute exacerbation Qualified Code(s): J44.1 - Chronic obstructive pulmonary disease with (acute) exacerbation
--- NOTE | 2023-10-18 13:42 | Gastrointestinal Consultation ---
Date of Consultation October 18, 2023 Assessment & Plan (1) Aspiration pneumonia: 78 year old female w/ history of achalasia s/p myotomy, COPD, sleep apnea, hyperlipidemia, depression, severe proteincalorie malnutrition, DVT, and multifocal pneumonia admitted w fevers and suspected aspiration PNA NPO after midnight EGD 10/19/23 May stop Carafate for now Continue PPI, H2 Ultimately she will need follow up with the tertiary center who performed her myotomy if her aspiration PNA is thought to be related to her underlying achalasia history We appreciate assistance in the management of any serological abnormality and corrections to include: hemoglobin >7, INR <2, platelets >50,000, potassium levels >3.5 but <5.3, and sodium levels within 5 points of the reference range prior to endoscopic evaluation. Thank you for allowing us to participate in the care of this patient. Please call with any acute changes, questions or concerns. Please see addendum below with additional recommendation from my supervising physician. I spent a total of 60 minutes on the date of service in review of patient's [address], and previously obtained information in person and appropriate medical visit, discussion and education of plan, with patient and/or caregiver, placing orders for tests/referral/procedures as medically necessary and documentation of pertinent clinical information in patient's medical records for their visit today. Supervising Physician Co-Signing Physician Notes I examined the patient and reviewed the medical record, laboratory data and imaging studies. I agree with the assessment and plan of care as suggested by rylie ramirez advanced practice provider. A very pleasant female who appears comfortable at the current time. She she has a history of a Heller myotomy she states that as long as he chews properly and she breaks down the food she does not have any dysphagia when she eats large pieces and she has some issues seems to be doing well post a Heller myotomy as long as she uses her dentures also currently dizzy denies any GI complaints abdomen is soft no tenderness or masses appreciated she had a CT scan done which showed some thickening of the lower esophagus and possible fluid at the current time I would 1. Placed on PPI twice daily 2. Schedule EGD to evaluate area of esophageal thickening 3. Clear liquid diet and advance as tolerated Thank you for allowing us to take part in the care of your patient we will continue to follow her with you History of Present Illness Reason for Consultation: aspiration PNA Requesting Physician: Jose Attending Physician: Tayo Garcia MD History of Present Illness 78 year old female w/ history of COPD, sleep apnea, hyperlipidemia, depression, severe proteincalorie malnutrition, DVT, and multifocal pneumonia admitted w fevers and suspected aspiration PNA - GI was asked to evaluate. Pt was seen and evaluated, chart reviewed. She notes a history of dysphagia, achalasia treated w/ myotomy either at [facility], [facility] or [facility]. Notes she was doing well with this as long as she is on a minced diet. Suggests she has been on a regular diet she does have sensation of food sticking. Otherwise, asymptomatic. No abd pain, nausea, vomiting, GERD or dysphagia. CT w/ mild circumferential thickening of the distal esophagus Allergies Allergy/AdvReac Type Severity Reaction Status Date / Time atorvastatin [From Lipitor] Allergy Intermediate Skin Rash Verified 07/05/23 10:09 morphine AdvReac Intermediate Nausea Verified 07/05/23 10:09 Home Medications Medication Instructions Recorded Confirmed Type cholecalciferol (vitamin D3) 25 25 mcg PO QAM 05/03/20 10/17/23 History mcg (1,000 unit) tablet (Vitamin D3) cyanocobalamin (vitamin B-12) 1,000 mcg PO QAM 05/03/20 10/17/23 History 1,000 mcg tablet (Vitamin B-12) diltiazem HCl 180 mg 180 mg PO QAM 05/03/20 10/17/23 History capsule,extended release 24 hr duloxetine 30 mg capsule,delayed 30 mg PO QAM 05/03/20 10/17/23 History release (Cymbalta) duloxetine 60 mg capsule,delayed 60 mg PO QAM 05/03/20 10/17/23 History release gabapentin 600 mg tablet 600 mg PO TID 05/03/20 10/17/23 History pravastatin 40 mg tablet 40 mg PO QAM 05/03/20 10/17/23 History sucralfate 1 gram tablet (Carafate) 1 g PO ACHS PRN Indigestion 05/03/20 10/17/23 History albuterol sulfate 90 mcg/actuation 2 puff inhalation Q3H PRN 11/08/20 10/17/23 History aerosol inhaler Shortness Of Breath acetaminophen 325 mg tablet 650 mg (2 x 325 mg) PO Q4H PRN 11/10/20 10/17/23 Rx fever or pain #30 tabs diclofenac sodium 1 % topical gel 2 g topical QID PRN Pain 11/16/20 10/17/23 History oxycodone-acetaminophen 5 mg-325 1 tab PO Q8H PRN Pain 05/22/21 10/17/23 History mg tablet ondansetron HCl 4 mg tablet 4 mg PO Q6H PRN NAUSEA/VOMITING 07/31/21 10/17/23 History donepezil 5 mg tablet 5 mg PO DAILY 06/12/23 10/17/23 History dulaglutide 0.75 mg/0.5 mL 0.75 mg subcut WK 06/12/23 10/17/23 History subcutaneous pen injector (Trulicity) famotidine 40 mg tablet 40 mg PO HS 06/12/23 10/17/23 History furosemide 20 mg tablet (Lasix) 20 mg PO DAILY PRN Edema 06/12/23 10/17/23 History hydrochlorothiazide 25 mg tablet 25 mg PO DAILY 06/12/23 10/17/23 History lisinopril 10 mg tablet 10 mg PO DAILY 06/12/23 10/17/23 History metformin 500 mg tablet 1,000 mg PO BID 06/12/23 10/17/23 History omeprazole 20 mg capsule,delayed 20 mg PO QAM 06/12/23 10/17/23 History release ropinirole 1 mg tablet 1 mg PO HS 06/12/23 10/17/23 History tizanidine 4 mg tablet 4 mg PO Q8H PRN MUSCLE SPASMS 06/12/23 10/17/23 History trazodone 150 mg tablet 150 mg PO HS 06/12/23 10/17/23 History ezetimibe 10 mg tablet 10 mg PO DAILY 10/17/23 10/17/23 History lidocaine 5 % topical patch 1 patch transdermal DAILY 10/17/23 10/17/23 History Patient History Medical History Aspiration pneumonia SHELDON on CPAP not using cpap Pneumonia Hypoxia Acute and chronic respiratory failure with hypoxia Sepsis Headache History of esophageal dilatation Peripheral neuropathy Weight loss, unintentional Chronic obstructive pulmonary disease inhaler prn; O2 sats 90-94% per pt and granddaughter, they report qualifying walking test however that follow-up test was then normal, patient is not currently on supplemental oxygen, they deny recent walking desat test Dysphagia Schatzki's ring Encounter for pre-operative examination Current smoker Quit smoking 06/13/21 Restless leg syndrome Diabetes mellitus type 2 in obese NIDDM GERD (gastroesophageal reflux disease) Peptic ulcer disease (~2017) bleeding ulcer HTN (hypertension), benign Surgical History (Updated 07/18/23 @ 00:08 by Teresa Aguirre) History of cataract surgery bilateral S/P epidural steroid injection History of colonoscopy History of esophagogastroduodenoscopy (EGD) History of bilateral tubal ligation History of carpal tunnel release Left History of repair of rotator cuff Right History of lumbar fusion Family History Father Heart disease Brother Kidney disease Mother Gastric cancer Family/Other Testicular cancer Other No family history of adverse response to anesthesia Social History Smoking Status: Former smoker Tobacco Type: Cigarettes Age Started Using Tobacco: 11; Cigarettes Per Day: quit in 2022; Second Hand Exposure: Yes; Do You Dip or Chew Tobacco: No; Tobacco Cessation Education Requested by Patient: No Hx Alcohol Use: No Hx Substance Use: No Preferred Language: Qatari Communication Ability: Effective Car Supplier Required: No Beliefs That Will Affect Care: Amish marital status: / Current Living Situation: Family Current Living Situation Comment: lives with daughter her brother and grandson Other Information That Helps Us Care for You: No Feels Safe at Home: Yes Safety Concerns: Feels Safe At This Time Assistive Devices: Cane, Glasses, Oxygen - Continuous and Walker Review of Systems Review of Systems: All other findings negative except as noted in HPI. Physical Exam Constitutional: WD/WN, vitals as above Respiratory: normal respiratory effort, lungs clear to auscultation Cardiovascular: RRR, no murmur, no edema Gastrointestinal (Abdomen): normal bowel sounds, soft, nontender, no hepatosplenomegaly Skin: no rashes, warm and dry Results & Data Vital Signs (Past 12 Hours) Vital Signs Temp Pulse Pulse Resp BP BP Pulse Ox 10/18/23 12:23 36.5 C 79 18 119/70 96 10/18/23 10:13 10/18/23 08:29 36.8 C 57 L 16 130/75 94 10/18/23 07:35 78 10/18/23 04:00 36.7 C 82 18 120/62 93 O2 Del Method O2 Flow Rate 10/18/23 12:23 Nasal Cannula 3 10/18/23 10:13 Nasal Cannula 3 10/18/23 08:29 Nasal Cannula 3 10/18/23 07:35 10/18/23 04:00 Nasal Cannula 3 Laboratory Results 10/18/23 10/18/23 10/18/23 Range/Units 12:09 08:03 05:37 WBC 13.63 H (4.8-10.8) K/ul RBC 3.64 L (4.20-5.40) M/uL Hgb 10.5 L (12.0-16.0) g/dl Hct 32.2 L (37.0-47.0) % MCV 88.5 (80.0-100.0) fL MCH 28.8 (25.0-34.0) pg MCHC 32.6 (32.0-36.0) g/dL RDW Std Deviation 44.7 (36.4-46.3) fL RDW Coeff of [place] 13.8 (11.5-14.5) % Plt Count 232 (130-400) K/uL MPV 9.7 (9.4-12.4) fL Immature Gran % (Auto) 0.3 % Neut % (Auto) 83.9 % Lymph % (Auto) 7.6 % [place] % (Auto) 7.5 % Eos % (Auto) 0.5 % Baso % (Auto) 0.2 % Neut # (Auto) 11.43 H (1.40-6.50) K/uL Lymph # (Auto) 1.04 L (1.20-3.40) K/uL [place] # (Auto) 1.02 H (0.11-0.59) K/uL Eos # (Auto) 0.07 (0.00-0.50) K/uL Baso # (Auto) 0.03 (0.00-0.20) K/uL Immature Gran # (Auto) 0.04 (0.01-0.20) K/uL ABG pH (7.35-7.45) ABG pCO2 (35-46) mmHg ABG pO2 (80-95) mmHg ABG HCO3 (19-24) mmol/L ABG O2 Saturation (90-95) % ABG Base Excess (-9-1.8) mEq/L [place] Test (Pos) Oxygen Given Sodium 135 L (136-145) mmol/L Potassium 4.1 (3.5-5.1) mmol/L Chloride 97 L (98-107) mmol/L Carbon Dioxide 32 (21-32) mmol/L Anion Gap 6 (3-11) BUN 15 (6-23) mg/dl Creatinine 0.97 (0.6-1.2) mg/dl Est Cr Clr Drug Dosing 50.0 ml/min Est GFR ( Amer) 64.4 ml/min Est GFR (Non-Af Amer) 55.5 ml/min BUN/Creatinine Ratio 15.5 (10-20) Glucose 143 H (70-99(Fasting)) mg/dl POC Glucose 180 H 169 H (70-99) mg/dl Estimat Average Glucose 163 mg/dl Hemoglobin A1c 7.3 H (4.5-5.6) % Lactate (0.4-2.0) mmol/L Calcium 8.5 L (8.6-10.3) mg/dl Magnesium 2.0 (1.7-2.4) mg/dl Troponin I High Sens 19.1 H D (0-14) pg/ml Nasal Screen MRSA (PCR) (Negative) 10/17/23 10/17/23 10/17/23 Range/Units 22:31 19:52 18:04 WBC (4.8-10.8) K/ul RBC (4.20-5.40) M/uL Hgb (12.0-16.0) g/dl Hct (37.0-47.0) % MCV (80.0-100.0) fL MCH (25.0-34.0) pg MCHC (32.0-36.0) g/dL RDW Std Deviation (36.4-46.3) fL RDW Coeff of [place] (11.5-14.5) % Plt Count (130-400) K/uL MPV (9.4-12.4) fL Immature Gran % (Auto) % Neut % (Auto) % Lymph % (Auto) % [place] % (Auto) % Eos % (Auto) % Baso % (Auto) % Neut # (Auto) (1.40-6.50) K/uL Lymph # (Auto) (1.20-3.40) K/uL [place] # (Auto) (0.11-0.59) K/uL Eos # (Auto) (0.00-0.50) K/uL Baso # (Auto) (0.00-0.20) K/uL Immature Gran # (Auto) (0.01-0.20) K/uL ABG pH 7.40 (7.35-7.45) ABG pCO2 46 (35-46) mmHg ABG pO2 85 (80-95) mmHg ABG HCO3 29 H (19-24) mmol/L ABG O2 Saturation 97.8 H (90-95) % ABG Base Excess 3.0 H (-9-1.8) mEq/L [place] Test Pos (Pos) Oxygen Given 3L O2 Sodium (136-145) mmol/L Potassium (3.5-5.1) mmol/L Chloride (98-107) mmol/L Carbon Dioxide (21-32) mmol/L Anion Gap (3-11) BUN (6-23) mg/dl Creatinine (0.6-1.2) mg/dl Est Cr Clr Drug Dosing ml/min Est GFR ( Amer) ml/min Est GFR (Non-Af Amer) ml/min BUN/Creatinine Ratio (10-20) Glucose (70-99(Fasting)) mg/dl POC Glucose 270 H (70-99) mg/dl Estimat Average Glucose mg/dl Hemoglobin A1c (4.5-5.6) % Lactate 2.5 H* (0.4-2.0) mmol/L Calcium (8.6-10.3) mg/dl Magnesium (1.7-2.4) mg/dl Troponin I High Sens 37.3 H 40.1 H (0-14) pg/ml Nasal Screen MRSA (PCR) (Negative) 10/17/23 10/17/23 Range/Units 17:06 13:50 WBC (4.8-10.8) K/ul RBC (4.20-5.40) M/uL Hgb (12.0-16.0) g/dl Hct (37.0-47.0) % MCV (80.0-100.0) fL MCH (25.0-34.0) pg MCHC (32.0-36.0) g/dL RDW Std Deviation (36.4-46.3) fL RDW Coeff of [place] (11.5-14.5) % Plt Count (130-400) K/uL MPV (9.4-12.4) fL Immature Gran % (Auto) % Neut % (Auto) % Lymph % (Auto) % [place] % (Auto) % Eos % (Auto) % Baso % (Auto) % Neut # (Auto) (1.40-6.50) K/uL Lymph # (Auto) (1.20-3.40) K/uL [place] # (Auto) (0.11-0.59) K/uL Eos # (Auto) (0.00-0.50) K/uL Baso # (Auto) (0.00-0.20) K/uL Immature Gran # (Auto) (0.01-0.20) K/uL ABG pH (7.35-7.45) ABG pCO2 (35-46) mmHg ABG pO2 (80-95) mmHg ABG HCO3 (19-24) mmol/L ABG O2 Saturation (90-95) % ABG Base Excess (-9-1.8) mEq/L [place] Test (Pos) Oxygen Given Sodium (136-145) mmol/L Potassium (3.5-5.1) mmol/L Chloride (98-107) mmol/L Carbon Dioxide (21-32) mmol/L Anion Gap (3-11) BUN (6-23) mg/dl Creatinine (0.6-1.2) mg/dl Est Cr Clr Drug Dosing ml/min Est GFR ( Amer) ml/min Est GFR (Non-Af Amer) ml/min BUN/Creatinine Ratio (10-20) Glucose (70-99(Fasting)) mg/dl POC Glucose 171 H (70-99) mg/dl Estimat Average Glucose mg/dl Hemoglobin A1c (4.5-5.6) % Lactate (0.4-2.0) mmol/L Calcium (8.6-10.3) mg/dl Magnesium (1.7-2.4) mg/dl Troponin I High Sens (0-14) pg/ml Nasal Screen MRSA (PCR) Negative (Negative) PG Care Time/CCT Total # of Minutes Spent Total Time Spent with Patient: Total time spent is greater than 50% in coordination of care (as documented) at patient's floor/unit and/or counseling patient: Coding Level of Care Code 27988 INT INP/OBS CARE 2/55MIN Diagnoses Aspiration pneumonia, unspecified aspiration pneumonia type, unspecified laterality, unspecified part of lung J69.0 Aspiration pneumonia type: unspecified Laterality: unspecified laterality Lung location: unspecified part of lung (1) Aspiration pneumonia Aspiration pneumonia type: unspecified Laterality: unspecified laterality Lung location: unspecified part of lung Qualified Code(s): J69.0 - Pneumonitis due to inhalation of food and vomit
[2023-10-18] MEDS: FAMOTIDINE 40 MG TABLET PO SCH (20:47)
[2023-10-18] MEDS ORDERED: rOPINIRole HCL 1 MG TABLET PO SCH (21:00)
[2023-10-18] MEDS ORDERED: traZODone HCL 50 MG TAB PO SCH (21:00)
--- NOTE | 2023-10-19 05:54 | Electrocardiogram Report ---
Test Reason : Blood Pressure : / mmHG Vent. Rate : 097 BPM Atrial Rate : 097 BPM P-R Int : 168 ms QRS Dur : 096 ms QT Int : 358 ms P-R-T Axes : -11 -67 058 degrees QTc Int : 454 ms Normal sinus rhythm Left axis deviation Poor R wave progression, consider anterior [place] vs. lead placement vs. LVH Abnormal ECG When compared with ECG of 12-JUN-2023 14:30, No significant change was found Confirmed by Jose A Camarena ([id number]) on 10/19/2023 5:53:39 AM Referred By: REFERRED SELF Confirmed By:Jose A Camarena
[2023-10-19 06:54] LABS: BUN Creatinine Ratio 16.5 (10-20); Calcium 8.8 mg/dl (8.6-10.3); Creatinine Clr Calc Pharmacy 53.1 ml/min; Est GFR (African American) 69.5 ml/min; Potassium 4.1 mmol/L (3.5-5.1)
[2023-10-19 07:18] LABS: Folate (Folic Acid),Ser orPlas 8.51 ng/ml (>5.38)
--- NOTE | 2023-10-19 09:07 | Gastroenterology Progress Note ---
Date of Service October 19, 2023 Assessment & Plan (1) Aspiration pneumonia: Plan: 78 year old female w/ history of achalasia s/p myotomy, COPD, sleep apnea, hyperlipidemia, depression, severe proteincalorie malnutrition, DVT, and multifocal pneumonia admitted w fevers and suspected aspiration PNA Maintain NPO status for EGD evaluation. Ultimately she will need follow up with the tertiary center who performed her myotomy if her aspiration PNA is thought to be related to her underlying achalasia history We appreciate assistance in the management of any serological abnormality and corrections to include: hemoglobin >7, INR <2, platelets >50,000, potassium l evels >3.5 but <5.3, and sodium levels within 5 points of the reference range prior to endoscopic evaluation. Thank you for allowing us to participate in the care of this patient. Please call with any acute changes, questions or concerns. Please see addendum below with additional recommendation from my supervising physician. Admission and Anticipated Discharge Date Admission Date: October 17, 2023 Subjective Pt was seen and evaluated, chart reviewed. Is NPO for EGD this AM. Offers no new concerns. No report of dysphagia. Respiratory status is at baseline. Review of Systems Review of Systems: All other findings negative except as noted in HPI. Physical Exam Constitutional: WD/WN, vitals as above Respiratory: normal respiratory effort Cardiovascular: Rate/Rhythm: regular rate and regular rhythm Gastrointestinal (Abdomen): Inspection/Auscultation: normal bowel sounds Percussion/Palpation: abdomen soft; abdomen nontender, no guarding and abdomen not rigid Skin: no rashes, warm and dry Results & Data Results & Data Vital Signs (Past 12 Hours) Vital Signs Temp Pulse Pulse Resp BP BP Pulse Ox 10/19/23 07:45 76 10/19/23 06:36 36.7 C 86 20 151/83 H 93 10/19/23 03:09 36.7 C 72 18 107/68 96 10/19/23 00:00 75 10/18/23 23:36 36.5 C 80 20 128/69 94 O2 Del Method O2 Flow Rate 10/19/23 07:45 10/19/23 06:36 Nasal Cannula 2 10/19/23 03:09 Nasal Cannula 3 10/19/23 00:00 10/18/23 23:36 Nasal Cannula 3 Laboratory Results 0710/19/23 10/18/23 Range/Units 08:03 06:16 19:51 Sodium 137 (136-145) mmol/L Potassium 4.1 (3.5-5.1) mmol/L Chloride 99 (98-107) mmol/L Carbon Dioxide 30 (21-32) mmol/L Anion Gap 8 (3-11) BUN 15 (6-23) mg/dl Creatinine 0.91 (0.6-1.2) mg/dl Est Cr Clr Drug Dosing 53.1 ml/min Est GFR ( Amer) 69.5 ml/min Est GFR (Non-Af Amer) 60.0 ml/min BUN/Creatinine Ratio 16.5 (10-20) Glucose 145 H (70-99(Fasting)) mg/dl POC Glucose 168 H 130 H (70-99) mg/dl Calcium 8.8 (8.6-10.3) mg/dl Iron 49 (35-150) mcg/dl TIBC 270 (250-450) mcg/dl Unsaturated IBC 221 (155-355) mcg/dl Transferrin % Sat 18 (15-50) % Ferritin 107.0 (8-388) ng/ml Vitamin B12 217 (180-914) pg/ml Folate 8.51 (>5.38) ng/ml 10/18/23 10/18/23 Range/Units 16:41 12:09 Sodium (136-145) mmol/L Potassium (3.5-5.1) mmol/L Chloride (98-107) mmol/L Carbon Dioxide (21-32) mmol/L Anion Gap (3-11) BUN (6-23) mg/dl Creatinine (0.6-1.2) mg/dl Est Cr Clr Drug Dosing ml/min Est GFR ( Amer) ml/min Est GFR (Non-Af Amer) ml/min BUN/Creatinine Ratio (10-20) Glucose (70-99(Fasting)) mg/dl POC Glucose 187 H 180 H (70-99) mg/dl Calcium (8.6-10.3) mg/dl Iron (35-150) mcg/dl TIBC (250-450) mcg/dl Unsaturated IBC (155-355) mcg/dl Transferrin % Sat (15-50) % Ferritin (8-388) ng/ml Vitamin B12 (180-914) pg/ml Folate (>5.38) ng/ml PG Care Time/CCT Total # of Minutes Spent Total Time Spent with Patient: Total time spent is greater than 50% in coordination of care (as documented) at patient's floor/unit and/or counseling patient: Coding Level of Care Code None Diagnoses Aspiration pneumonia, unspecified aspiration pneumonia type, unspecified laterality, unspecified part of lung J69.0 Aspiration pneumonia type: unspecified Laterality: unspecified laterality Lung location: unspecified part of lung (1) Aspiration pneumonia Aspiration pneumonia type: unspecified Laterality: unspecified laterality Lung location: unspecified part of lung Qualified Code(s): J69.0 - Pneumonitis due to inhalation of food and vomit
[2023-10-19] MEDS ORDERED: Nursing to Pharmacy Communication SCH ×2 (09:30→13:30)
[2023-10-19] MEDS: CYANOCOBALAMIN (B-12) 500 MCG TABLET PO SCH (11:01)
--- NOTE | 2023-10-19 11:19 | Hospitalist Progress Note ---
Date of Service October 19, 2023 Assessment & Plan (1) Aspiration pneumonia: Plan: CXR - multifocal airspace opacities most prominently in the left lower lung Chest CTA - airspace opacities b/l consistent with pneumonia MRSA swab neg Resp BioFire panel negative Day #3 IV Unasyn Blood cx's neg to date Remains stable on typical home O2 amount of 3 L continuously She is stable and improved Speech therapy eval appreciated No changes in minced/moist diet at this time Compliance with such needed, however (2) Acute and chronic respiratory failure with hypoxia: Plan: Patient is on supplemental oxygen at baseline at home Hypoxic at 83% on 3L NC on the morning of 10/16 Since then O2 sats have been stable on the 3 L Acute component 2nd to #1 Chronic component 2nd to COPD (3) Sepsis: Plan: 2nd to #1 blood cx's negative to date sepsis resolved (4) Hypomagnesemia: Plan: Magnesium 1.4 on arrival Replaced Resolved (5) Type 2 diabetes mellitus: Plan: HbA1c - 7.3% Hold metformin, Trulicity Cont Novolog SSI Controlled (6) Elevated troponin: Plan: Peak troponin 40 2nd to myocardial demand ischemia in setting of #1 above No evidence of ACS (7) Fall: Plan: Fall x 2 AM of 10/16 at home; no LOC; no head injury Head CT negative for ICH, fracture, etc No evidence of other bony injuries PT/OT evaluations appreciated (8) Hypertension: Plan: Continue lisinopril, diltiazem; switched latter from CD to IR Cont to hold hydrochlorothiazide and Lasix for now Likely resume lasix tomorrow, however (9) Restless leg syndrome: Plan: Continue ropinirole Fe studies noted (ferritin - 107) Most of her cramps/leg symptoms are likely severe RLS will add daytime dose of ropinirole 0.25mg at 12noon re-eval tomorrow K/mag wnl replace low B12 (10) Sleep apnea: Plan: Patient is unable to tolerate CPAP at night by report (11) Schatzki's ring: Plan: history of on EGD 2020 repeat EGD today w/o such (12) COPD (chronic obstructive pulmonary disease): Plan: stable w/o exacerbation cont home inhalers, etc (13) Dysphagia: Plan: prior h/o achalasia s/o Heller Myotomy in 2021 - [facility] prior h/o Schatzki's ring [facility] consulted due to abnormal appearing esophagus on CT chest this admission (fluid, thickening, etc) s/p EGD today - esophagus dilated with retained contrast (not sure when that contrast is from) findings concerning for recurrent achalasia will need manometry done post-d/c cont PPI BID dosing cont carafate cont pepcid cont minced/moist diet (14) Abnormal CT scan, esophagus: Plan: as above (15) Achalasia, esophageal: Plan: type 2, known h/o such s/p Heller Myotomy 2021 [facility] see #13 above (16) Vitamin B12 deficiency: Plan: level is 217 start B12 1000mcg po daily x 6 months Plan VTE PPx: Lovenox 40 mg SQ q24h progressing updated pt's daughter by phone this evening Admission and Anticipated Discharge Date Admission Date: October 17, 2023 Subjective saw patient prior to her EGD her main complaint was that of leg cramps in both legs and to some degree her arms as well (but mainly the legs) has severe restless legs at night-time - this feels similar denies dyspnea minimal cough o2 requirement currently is 3 L continuously which is baseline for her denies chest pain minimal stomach upset/discomfort Review of Systems Review of Systems: gen - no fevers or chills cv - no orthopnea pulm - no dyspnea at rest; baseline [facility] - no vomiting Physical Exam Physical Exam: gen - NAD, comfortable neck - no JVD mouth - MMM, no thrush heart - RRR, s1 s2, no murmur lungs - b/l basilar rales - minimal-mild only; left rales a bit more prominent; CTA b/l apices, no increased work of breathing, no wheezing abd - soft NT ND BS+ ext - no edema, pulses b/l feet 2+ Results & Data Results & Data Vital Signs (Past 12 Hours) Vital Signs Temp Pulse Pulse Resp BP BP Pulse Ox 10/19/23 10:43 10/19/23 07:45 76 10/19/23 06:36 36.7 C 86 20 151/83 H 93 10/19/23 03:09 36.7 C 72 18 107/68 96 10/19/23 00:00 75 10/18/23 23:36 36.5 C 80 20 128/69 94 O2 Del Method O2 Flow Rate 10/19/23 10:43 Nasal Cannula 3 10/19/23 07:45 10/19/23 06:36 Nasal Cannula 2 10/19/23 03:09 Nasal Cannula 3 10/19/23 00:00 10/18/23 23:36 Nasal Cannula 3 Laboratory Results Laboratory Results - last 24 hr 10/18/23 10/18/23 10/18/23 12:09 16:41 19:51 Sodium Potassium Chloride Carbon Dioxide Anion Gap BUN Creatinine Est Cr Clr Drug Dosing Est GFR ( Amer) Est GFR (Non-Af Amer) BUN/Creatinine Ratio Glucose POC Glucose 180 H 187 H 130 H Calcium Iron TIBC Unsaturated IBC Transferrin % Sat Ferritin Vitamin B12 Folate 10/19/23 10/19/23 06:16 08:03 Sodium 137 Potassium 4.1 Chloride 99 Carbon Dioxide 30 Anion Gap 8 BUN 15 Creatinine 0.91 Est Cr Clr Drug Dosing 53.1 Est GFR ( Amer) 69.5 Est GFR (Non-Af Amer) 60.0 BUN/Creatinine Ratio 16.5 Glucose 145 H POC Glucose 168 H Calcium 8.8 Iron 49 TIBC 270 Unsaturated IBC 221 Transferrin % Sat 18 Ferritin 107.0 Vitamin B12 217 Folate 8.51 PG Care Time/CCT Total # of Minutes Spent Total Time Spent with Patient: Total time spent is greater than 50% in coordination of care (as documented) at patient's floor/unit and/or counseling patient: Coding Level of Care Code 43496 SUB INP/OBS CARE 3/50MIN Diagnoses Aspiration pneumonia, unspecified aspiration pneumonia type, unspecified laterality, unspecified part of lung J69.0 Aspiration pneumonia type: unspecified Laterality: unspecified laterality Lung location: unspecified part of lung Acute and chronic respiratory failure with hypoxia J96.21 Sepsis A41.9 Hypomagnesemia E83.42 Type 2 diabetes mellitus E11.9 Elevated troponin R79.89 Fall W19.XXXA Hypertension I10 Restless leg syndrome G25.81 Sleep apnea G47.30 Schatzki's ring K22.2 Chronic obstructive pulmonary disease with acute exacerbation J44.1 COPD type: COPD with acute exacerbation Dysphagia R13.[address] scan, esophagus R93.3 Achalasia, esophageal K22.0 Vitamin B12 deficiency E53.8 (1) Aspiration pneumonia Aspiration pneumonia type: unspecified Laterality: unspecified laterality Lung location: unspecified part of lung Qualified Code(s): J69.0 - Pneumonitis due to inhalation of food and vomit (12) COPD (chronic obstructive pulmonary disease) COPD type: COPD with acute exacerbation Qualified Code(s): J44.1 - Chronic obstructive pulmonary disease with (acute) exacerbation
--- NOTE | 2023-10-19 11:26 | Communication Note ---
Date of Service: October 19, 2023 Saw patient on rounds at ~11am. Patient resting comfortably in bed. She reported she was hungry. Her main complaint was that of b/l leg cramps which are chronic "for years." These feel similar to the symptoms she gets with her restless legs. Mag level was 2 on 10/18/23. K level today is 4.1. Her o2 requirement is 3 L of NC o2 which is her chronic, baseline O2 amount at home. She has mild cough only. NO dyspnea or wheezing at rest. She overall feels good. She is anxious to get her EGD done today. Tele overnight wnl. Exam - gen - looks good, NAD, comfortably mouth - MMM neck - no JVD heart - RRR, s1 s2 lungs - mild L basilar rales, minimal rales R base, no wheezes, no increased work of breathing abd - soft NT ND BS+ ext - no edema, pulses feet 2+ b/l From medical standpoint she is optimized from cardiopulmonary standpoint. She has had 3+ days of IV antibiotics for recent aspiration pneumonia. Her O2 requirement of 3 L is at baseline. She has minimal symptoms from her aspiration pneumonia. The source of her pneumonia is a primary esophagus problem leading to dysphagia & aspiration. This is her 2nd episode of aspiration pneumonia in the last 5 months. Her esophagus is grossly abnormal on CT chest, and she has been having dysphagia at home. Direct visualization of her esophagus by GI is necessary to prevent additional occurrences of aspiration pneumonia. Tayo Garcia MD
--- NOTE | 2023-10-19 11:44 | Anesthesiology Consultation ---
Date of Service October 19, 2023 Assessment & Plan Chart Review Chart Review: Acceptable Risk for Surgery and Patient NOT seen in Pre Admission Testing Consults Requested none ASA ASA4 Proposed Anesthesia Anesthesia Type: MAC History Surgery Operation Date: 10/19/23 16:30 Proposed Procedures p Esophagogastroduodenoscopy Moraima Valera MD Height/Weight Height: 5 ft 4 in Weight: 85.8 kg Allergies Allergy/AdvReac Type Severity Reaction Status Date / Time atorvastatin [From Lipitor] Allergy Intermediate Skin Rash Verified 07/05/23 10:09 morphine AdvReac Intermediate Nausea Verified 07/05/23 10:09 Medications Home Medications Medication Instructions Recorded Confirmed Last Taken cholecalciferol (vitamin D3) 25 25 mcg PO QAM 05/03/20 10/17/23 06/12/23 mcg (1,000 unit) tablet (Vitamin D3) cyanocobalamin (vitamin B-12) 1,000 mcg PO QAM 05/03/20 10/17/23 06/12/23 1,000 mcg tablet (Vitamin B-12) diltiazem HCl 180 mg 180 mg PO QAM 05/03/20 10/17/23 06/12/23 capsule,extended release 24 hr duloxetine 30 mg capsule,delayed 30 mg PO QAM 05/03/20 10/17/23 06/12/23 release (Cymbalta) duloxetine 60 mg capsule,delayed 60 mg PO QAM 05/03/20 10/17/23 06/12/23 release gabapentin 600 mg tablet 600 mg PO TID 05/03/20 10/17/23 06/12/23 08:00 pravastatin 40 mg tablet 40 mg PO QAM 05/03/20 10/17/23 06/12/23 sucralfate 1 gram tablet (Carafate) 1 g PO ACHS PRN Indigestion 05/03/20 10/17/23 06/14/21 21:30 albuterol sulfate 90 mcg/actuation 2 puff inhalation Q3H PRN 11/08/20 10/17/23 06/14/21 23:00 aerosol inhaler Shortness Of Breath acetaminophen 325 mg tablet 650 mg (2 x 325 mg) PO Q4H PRN 11/10/20 10/17/23 06/14/21 14:00 fever or pain #30 tabs diclofenac sodium 1 % topical gel 2 g topical QID PRN Pain 11/16/20 10/17/23 12/01/20 22:00 oxycodone-acetaminophen 5 mg-325 1 tab PO Q8H PRN Pain 05/22/21 10/17/23 06/11/23 mg tablet 2 TABS ondansetron HCl 4 mg tablet 4 mg PO Q6H PRN NAUSEA/VOMITING 07/31/21 10/17/23 Unknown donepezil 5 mg tablet 5 mg PO DAILY 06/12/23 10/17/23 06/12/23 dulaglutide 0.75 mg/0.5 mL 0.75 mg subcut WK 06/12/23 10/17/23 06/06/23 subcutaneous pen injector (Trulicity) famotidine 40 mg tablet 40 mg PO HS 06/12/23 10/17/23 06/11/23 furosemide 20 mg tablet (Lasix) 20 mg PO DAILY PRN Edema 06/12/23 10/17/23 Unknown hydrochlorothiazide 25 mg tablet 25 mg PO DAILY 06/12/23 10/17/23 06/12/23 lisinopril 10 mg tablet 10 mg PO DAILY 06/12/23 10/17/23 06/12/23 metformin 500 mg tablet 1,000 mg PO BID 06/12/23 10/17/23 06/12/23 08:00 omeprazole 20 mg capsule,delayed 20 mg PO QAM 06/12/23 10/17/23 06/12/23 release ropinirole 1 mg tablet 1 mg PO HS 06/12/23 10/17/23 06/11/23 tizanidine 4 mg tablet 4 mg PO Q8H PRN MUSCLE SPASMS 06/12/23 10/17/23 Unknown trazodone 150 mg tablet 150 mg PO HS 06/12/23 10/17/23 06/11/23 ezetimibe 10 mg tablet 10 mg PO DAILY 10/17/23 10/17/23 Unknown lidocaine 5 % topical patch 1 patch transdermal DAILY 10/17/23 10/17/23 Unknown Active Medications Generic Name Dose Route Start Last Admin Trade Name Freq PRN Reason Stop Dose Admin Acetaminophen 1,000 mg 10/18/23 09:00 10/19/23 09:30 Acetaminophen 500 Mg Tab PO 11/17/23 08:59 1,000 mg TID CLIVE Administration Cyanocobalamin 1,000 mcg 10/19/23 09:20 10/19/23 11:01 Cyanocobalamin (B-12) 500 Mcg Tablet PO 11/18/23 09:19 1,000 mcg QAM CLIVE Administration Diltiazem HCl 45 mg 10/18/23 09:00 10/19/23 09:29 Diltiazem Hcl 60 Mg Tab PO 11/17/23 08:59 45 mg QID CLIVE Administration Donepezil HCl 5 mg 10/18/23 09:00 10/19/23 09:31 Donepezil Hcl 5 Mg Tab PO 11/17/23 08:59 5 mg DAILY CLIVE Administration Duloxetine HCl 30 mg 10/18/23 09:00 10/19/23 09:30 Duloxetine Hcl 30 Mg Cap PO 11/17/23 08:59 30 mg QAM CLIVE Administration Duloxetine HCl 60 mg 10/18/23 09:00 10/19/23 09:30 Duloxetine Hcl 60 Mg Cap PO 11/17/23 08:59 60 mg QAM CLIVE Administration Enoxaparin Sodium 40 mg 10/17/23 20:30 10/18/23 20:50 Enoxaparin Inj 40 Mg/0.4 Ml Syr SQ 11/16/23 20:29 40 mg Q24H CLIVE Administration Famotidine 40 mg 10/18/23 21:00 10/18/23 20:47 Famotidine 40 Mg Tablet PO 11/17/23 20:59 40 mg HS CLIVE Administration Gabapentin 300 mg 10/17/23 21:25 10/19/23 09:30 Gabapentin 300 Mg Cap PO 11/16/23 21:24 300 mg TID CLIVE Administration Ampicillin Sodium/Sulbactam 100 mls @ 100 mls/hr 10/17/23 21:00 10/19/23 11:02 Sodium 3,000 mg/ Sodium IV 10/24/23 20:59 100 mls/hr Chloride Q6H CLIVE Administration Lansoprazole 30 mg 10/18/23 21:00 10/19/23 09:29 Lansoprazole 30 Mg Soltab PO 11/17/23 20:59 30 mg BID CLIVE Administration Lisinopril 10 mg 10/18/23 09:00 10/19/23 09:29 Lisinopril 10 Mg Tab PO 11/17/23 08:59 10 mg DAILY CLIVE Administration Oxycodone HCl 7.5 mg 10/18/23 08:09 10/19/23 06:48 Oxycodone Hcl Ir 5 Mg Tab (Immediate Release) PO 11/01/23 08:08 7.5 mg Q8H PRN Administration Pain Pravastatin Sodium 40 mg 10/18/23 09:00 10/19/23 09:30 Pravastatin Sod 40 Mg Tab PO 11/17/23 08:59 40 mg QAM CLIVE Administration Ropinirole HCl 1 mg 10/17/23 21:25 10/18/23 20:48 Ropinirole Hcl 1 Mg Tablet PO 11/16/23 21:24 1 mg HS CLIVE Administration Sucralfate 1 gm 10/18/23 13:00 10/19/23 09:30 Sucralfate 1 Gm/10 Ml Udc PO 11/17/23 12:59 1 gm QID CLIVE Administration Trazodone HCl 150 mg 10/17/23 21:25 10/18/23 20:49 Trazodone Hcl 50 Mg Tab PO 11/16/23 21:24 150 mg HS CLIVE Administration Past Medical History Medical History SHELDON on CPAP not using cpap Pneumonia Hypoxia Sepsis Headache History of esophageal dilatation Peripheral neuropathy Weight loss, unintentional Chronic obstructive pulmonary disease inhaler prn; O2 sats 90-94% per pt and granddaughter, they report qualifying walking test however that follow-up test was then normal, patient is not currently on supplemental oxygen, they deny recent walking desat test Dysphagia Encounter for pre-operative examination Current smoker Quit smoking 06/13/21 Diabetes mellitus type 2 in obese NIDDM GERD (gastroesophageal reflux disease) Peptic ulcer disease (~2017) bleeding ulcer HTN (hypertension), benign ASCVD Aorta Exercise / Class Metabolic Activity III < 4 Walking/Shop/Light housework Past Family History Family History Father Heart disease Brother Kidney disease Mother Gastric cancer Family/Other Testicular cancer Other No family history of adverse response to anesthesia Past Surgical History Surgical History History of cataract surgery bilateral S/P epidural steroid injection History of colonoscopy History of esophagogastroduodenoscopy (EGD) History of bilateral tubal ligation History of carpal tunnel release Left History of repair of rotator cuff Right History of lumbar fusion Past Anesthesia History No Hx of Anesthesia Complications and No Family Hx of Anesthesia Complications History of PONV No Hx of PONV and No Hx of Motion Sickness Social History Smoking Status: Former smoker tobacco type: cigarettes Smoking cigarettes per day: quit in 2022 Do You Dip or Chew Tobacco: No Hx Alcohol Use: No Hx Substance Use: No substance use type: does not use Physical Exam Vital Signs Last Vital Signs Temp 36.8 C 10/19/23 11:35 Pulse 81 10/19/23 11:35 Resp 20 10/19/23 11:35 BP 137/73 10/19/23 11:35 Pulse Ox 93 10/19/23 11:35 O2 Del Method Nasal Cannula 10/19/23 11:35 O2 Flow Rate 3 10/19/23 11:35 Testing Laboratory Results 10/18/23 05:37 10/19/23 06:16 PT 10.8 Seconds (9.0-12.0) 10/17/23 12:56 INR 1.0 (0.9-1.1) 10/17/23 12:56 APTT 24 Seconds (21-31) 10/17/23 12:56 Hemoglobin A1c 7.3 % (4.5-5.6) H 10/18/23 05:37 Urine Color Yellow 10/17/23 13:50 Urine Appearance Clear (Clear) 10/17/23 13:50 Urine pH 5.5 (4.5-7.5) 10/17/23 13:50 Ur Specific [place] 1.025 (1.000-1.030) 10/17/23 13:50 Urine Protein 2+ (Negative) H 10/17/23 13:50 Urine Glucose (UA) Negative (Negative) 10/17/23 13:50 Urine Ketones Negative (Negative) 10/17/23 13:50 Urine Nitrite Negative (Negative) 10/17/23 13:50 Ur Leukocyte Esterase Negative (Negative) 10/17/23 13:50 Urine RBC 0-2 /hpf (0-2) 10/17/23 13:50 Urine WBC 0-5 /hpf (0-5) 10/17/23 13:50 Ur Epithelial Cells 6-10 /hpf (0-2) H 10/17/23 13:50 10/17/23 13:50 Urine Culture - Preliminary Urine,Straight Cath Gram negative bacilli 10/17/23 14:35 Aerobic Blood Culture - Preliminary Blood No growth in Aerobic bottle after 24 hours. Anaerobic Blood Culture - Preliminary No growth in Anaerobic bottle after 24 hours. 10/17/23 13:27 Aerobic Blood Culture - Preliminary Blood No growth in Aerobic bottle after 24 hours. Anaerobic Blood Culture - Preliminary No growth in Anaerobic bottle after 24 hours. 10/19/23 08:03 POC Glucose 168 H Electrocardiogram Date: 10/17/23 Findings: + NSR @ (@ 97;LAD;poor R wave progression) Chest X-Ray Date: 10/17/23 Findings: + infiltrate (multiple airspace opacities c/w pneumonia and/or aspiration,seen most prominently in LLL), + pleural effusion (small left) and + atherosclerosis of thoracic aorta
[2023-10-19] MEDS ORDERED: ePHEDrine sulfate 50 MG/ML AMP IV PRN (12:02)
[2023-10-19] MEDS ORDERED: ATROPINE SULFATE 0.1 MG/ML 10ML SYR IV PRN (12:02)
[2023-10-19] MEDS: SODIUM CHLORIDE 0.9% 500 ML IV SCH (12:05)
--- NOTE | 2023-10-19 12:25 | GI REPORT ---
[facility] Patient: NICO STEPHENS : 1945 Sex at : Female Age: 78 Years Procedure: Upper GI endoscopy Date: 10/19/2023 Attending Physician: Akil Valera MD Referring MD: Tayo Garcia; Manny Bland Indications: - Dysphagia Medications: - Monitored Anesthesia Care Complications: - No immediate complications. Estimated Blood Loss: - Estimated blood loss: none. Procedure: - Prior to the procedure, a History and Physical was performed, and patient medications and allergies were reviewed. The patient's tolerance of previous anesthesia was also reviewed. The risks and benefits of the procedure and the sedation options and risks were discussed with the patient. All questions were answered, and informed consent was obtained. After reviewing the risks and benefits, the patient was deemed in satisfactory condition to undergo the procedure. - The egd scope was introduced through the mouth and advanced to the second part of the duodenum. - The upper GI endoscopy was accomplished without difficulty. - The patient tolerated the procedure well. Findings: - S/P Heller myotomy Patient still had some retained contrast in her esophagus Impression: - S/P Heller myotomy Patient still had some retained contrast in her esophagus Recommendation: - Continue present medications. - Start on full liquid diet and advance as tolerated Would repeat manometry and depending upon findings may need balloon dilation as she has stasis of contents in esophagus Procedure Code(s): - 94710, Esophagogastroduodenoscopy, flexible, transoral; diagnostic, including collection of specimen(s) by brushing or washing, when performed (separate procedure) Diagnosis Code(s): - R13.10, Dysphagia, unspecified CPT(R) - 2022 copyright [employer]. All Rights Reserved. The CPT codes, CCI edits and ICD codes generated are intended as suggestions and were generated based on input data. These codes are preliminary and upon shafting cleaner review may be revised to meet current compliance and payer requirements. The provider is responsible for the final determination of appropriate codes, and modifiers. Akil Valera This document has been electronically signed. Note Initiated:10/19/2023 Note Completed:10/19/2023 12:24 PM \\[email or web address]\[email or web address]\Data\Provation\Results\LIVE\[id number]
--- NOTE | 2023-10-19 12:31 | Anesthesiology Progress Note ---
Date of Service October 19, 2023 Anesthesia Post Procedure Vital Signs Vital Signs: Temp Pulse Pulse Pulse Resp BP BP 10/19/23 11:47 36.4 C L 77 16 145/81 H 10/19/23 11:35 36.8 C 81 20 137/73 10/19/23 10:43 10/19/23 07:45 76 10/19/23 06:36 36.7 C 86 20 151/83 H 10/19/23 03:09 36.7 C 72 18 107/68 10/19/23 00:00 75 10/18/23 23:36 36.5 C 80 20 128/69 10/18/23 20:00 10/18/23 19:31 36.3 C L 64 18 122/62 10/18/23 16:21 71 10/18/23 15:56 36.7 C 74 16 137/73 Pulse Ox O2 Del Method O2 Flow Rate 10/19/23 11:47 94 Nasal Cannula 3 10/19/23 11:35 93 Nasal Cannula 3 10/19/23 10:43 Nasal Cannula 3 10/19/23 07:45 10/19/23 06:36 93 Nasal Cannula 2 10/19/23 03:09 96 Nasal Cannula 3 10/19/23 00:00 10/18/23 23:36 94 Nasal Cannula 3 10/18/23 20:00 Nasal Cannula 3 10/18/23 19:31 92 Nasal Cannula 3 10/18/23 16:21 10/18/23 15:56 95 Nasal Cannula 3 Transfer of Care Handoff Completed per policy Notes Mental Status: alert / awake / arousable Patient Amnestic to Procedure: Yes Nausea / Vomiting: adequately controlled Pain: adequately controlled Airway Patency, RR, SpO2: stable & adequate BP & HR: stable & adequate Hydration State: stable & adequate Anesthetic Complications: no major complications apparent
[2023-10-19] MEDS: ONDANSETRON INJ 2 MG/ML 2 ML VIAL ONE (13:22)
[2023-10-19] MEDS: LIDOCAINE 2% 2 ML VIAL/AMP(20MG/ML) INFIL ONE (13:22)
[2023-10-19] MEDS: INSULIN ASPART PER UNIT CHARGE SC SCH ×2 (13:23→14:02)
[2023-10-19] MEDS: PROPOFOL IV EMULSION 10 MG/ML 20 ML VIAL IV ONE (13:23)
[2023-10-19] MEDS: rOPINIRole HCL 0.25 MG TABLET PO SCH (14:04)
[2023-10-20 07:23] LABS: BUN Creatinine Ratio 16.8 (10-20); Calcium 8.6 mg/dl (8.6-10.3); Creatinine Clr Calc Pharmacy 47.6 ml/min; Est GFR (African American) 61.3 ml/min; Est GFR (Non-African American) 52.9 ml/min; Potassium 4.7 mmol/L (3.5-5.1)
[2023-10-20] MEDS: oxyCODONE HCL IR 5 MG TAB (IMMEDIATE RELEASE) PO PRN (15:41)
--- NOTE | 2023-10-20 19:08 | Hospitalist Progress Note ---
Date of Service October 20, 2023 Assessment & Plan (1) Aspiration pneumonia: Plan: CXR - multifocal airspace opacities most prominently in the left lower lung Chest CTA - airspace opacities b/l consistent with pneumonia MRSA swab neg Resp BioFire panel negative Day #4 IV Unasyn Blood cx's neg to date Remains stable on typical home O2 amount of 3 L continuously She is stable and improved Speech therapy eval appreciated No changes in minced/moist diet at this time Compliance with such needed, however (2) Acute and chronic respiratory failure with hypoxia: Plan: Patient is on supplemental oxygen at baseline at home Hypoxic at 83% on 3L NC on the morning of 10/16 Since then O2 sats have been stable on the 3 L Acute component 2nd to #1 Chronic component 2nd to COPD (3) Sepsis: Plan: 2nd to #1 blood cx's negative to date sepsis resolved (4) Hypomagnesemia: Plan: Magnesium 1.4 on arrival Replaced Resolved (5) Type 2 diabetes mellitus: Plan: HbA1c - 7.3% Hold metformin, Trulicity Cont Novolog SSI Controlled nicely with bolus insulin alone (6) Elevated troponin: Plan: Peak troponin 40 2nd to myocardial demand ischemia in setting of #1 above No evidence of ACS (7) Fall: Plan: Fall x 2 AM of 10/16 at home; no LOC; no head injury Head CT negative for ICH, fracture, etc No evidence of other bony injuries PT/OT evaluations appreciated ok to return home at d/c (8) Hypertension: Plan: Continue lisinopril resume HCTZ tomorrow (9) Restless leg syndrome: Plan: Continue ropinirole Fe studies noted (ferritin - 107) Most of her cramps/leg symptoms are likely severe RLS added daytime dose of ropinirole 0.25mg at 12noon symptoms improved K/mag wnl replace low B12 (10) Sleep apnea: Plan: Patient is unable to tolerate CPAP at night by report (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 repeat EGD this admission w/o such (12) COPD (chronic obstructive pulmonary disease): Plan: stable w/o exacerbation cont home inhalers, etc (13) Dysphagia: Plan: prior h/o achalasia s/o Heller Myotomy in 2021 - [facility], [place], operated by [facility] prior h/o Schatzki's ring [facility] consulted due to abnormal appearing esophagus on CT chest this admission (fluid, thickening, etc) s/p EGD today - esophagus dilated with retained contrast (not sure when that contrast is from) findings concerning for recurrent achalasia will need manometry done post-d/c had previous manometry at [facility] - 05/21/2021 cont PPI BID dosing cont carafate cont pepcid cont minced/moist diet (14) Abnormal CT scan, esophagus: Plan: as above (15) Achalasia, esophageal: Plan: type 2, known h/o such s/p Heller Myotomy 2021 [facility], [place], operated by [facility] see #13 above (16) Vitamin B12 deficiency: Plan: level is 217 B12 1000mcg po daily x 6 months (17) Mobitz I: Plan: HOLD diltiazem she is not on any other AV derrick agents no symptoms from the Mobitz 1 no higher block seen no symptoms to suggest Lyme disease cont to monitor Plan VTE PPx: Lovenox 40 mg SQ q24h progressing likely can d/c home tomorrow remove reynolds updated pt's daughter by phone this evening once again Admission and Anticipated Discharge Date Admission Date: October 17, 2023 Subjective patient "doing really well" only mild cough at most eating well drinking well main complaint is her chronic low back pain denies cramps in legs today ok with reynolds being removed we discussed she will need manometry at [facility] due to recent EGD findings Review of Systems Review of Systems: cv - no cp, no edema pulm - no wheezing GI - no abd pain Physical Exam Physical Exam: gen - NAD, comfortable, looks good today neck - no JVD mouth - MMM, no thrush heart - RRR, s1 s2, no murmur lungs - b/l basilar rales - especially left; good airation; no wheeze; no increased work of breathing abd - soft NT ND BS+ ext - no edema, pulses b/l feet 2+ Results & Data Results & Data Vital Signs (Past 12 Hours) Vital Signs Temp Pulse Pulse Resp BP Pulse Ox Pulse Ox 10/20/23 18:00 70 10/20/23 16:00 85 10/20/23 16:00 93 10/20/23 15:03 36.4 C L 69 18 136/79 95 10/20/23 11:18 36.4 C L 64 18 138/77 95 10/20/23 11:03 10/20/23 09:00 10/20/23 07:25 36 C L 73 18 148/85 H 94 O2 Del Method O2 Del Method O2 Flow Rate O2 Flow Rate 10/20/23 18:00 10/20/23 16:00 10/20/23 16:00 Nasal Cannula 3 10/20/23 15:03 Nasal Cannula 2 10/20/23 11:18 Nasal Cannula 2 10/20/23 11:03 Room Air 10/20/23 09:00 Nasal Cannula 3 10/20/23 07:25 Nasal Cannula 3 Laboratory Results Laboratory Results - last 48 hr 10/19/23 10/19/23 10/19/23 13:18 17:04 19:54 Sodium Potassium Chloride Carbon Dioxide Anion Gap BUN Creatinine Est Cr Clr Drug Dosing Est GFR ( Amer) Est GFR (Non-Af Amer) BUN/Creatinine Ratio Glucose POC Glucose 138 H 178 H 174 H Calcium 10/20/23 10/20/23 10/20/23 06:34 08:04 11:47 Sodium 139 Potassium 4.7 Chloride 102 Carbon Dioxide 30 Anion Gap 7 BUN 17 Creatinine 1.01 Est Cr Clr Drug Dosing 47.6 Est GFR ( Amer) 61.3 Est GFR (Non-Af Amer) 52.9 BUN/Creatinine Ratio 16.8 Glucose 148 H POC Glucose 151 H 202 H Calcium 8.6 10/20/23 10/20/23 10/21/23 16:26 20:29 07:58 Sodium Potassium Chloride Carbon Dioxide Anion Gap BUN Creatinine Est Cr Clr Drug Dosing Est GFR ( Amer) Est GFR (Non-Af Amer) BUN/Creatinine Ratio Glucose POC Glucose 148 H 139 H 170 H Calcium PG Care Time/CCT Total # of Minutes Spent Total Time Spent with Patient: Total time spent is greater than 50% in coordination of care (as documented) at patient's floor/unit and/or counseling patient: Coding Level of Care Code 20693 SUB INP/OBS CARE 2/35MIN Diagnoses Aspiration pneumonia, unspecified aspiration pneumonia type, unspecified laterality, unspecified part of lung J69.0 Aspiration pneumonia type: unspecified Laterality: unspecified laterality Lung location: unspecified part of lung Acute and chronic respiratory failure with hypoxia J96.21 Sepsis A41.9 Hypomagnesemia E83.42 Type 2 diabetes mellitus E11.9 Elevated troponin R79.89 Fall W19.XXXA Hypertension I10 Restless leg syndrome G25.81 Sleep apnea G47.30 Schatzki's ring K22.2 Chronic obstructive pulmonary disease with acute exacerbation J44.1 COPD type: COPD with acute exacerbation Dysphagia R13.[address] scan, esophagus R93.3 Achalasia, esophageal K22.0 Vitamin B12 deficiency E53.8 Mobitz I I44.1 (1) Aspiration pneumonia Aspiration pneumonia type: unspecified Laterality: unspecified laterality Lung location: unspecified part of lung Qualified Code(s): J69.0 - Pneumonitis due to inhalation of food and vomit (12) COPD (chronic obstructive pulmonary disease) COPD type: COPD with acute exacerbation Qualified Code(s): J44.1 - Chronic obstructive pulmonary disease with (acute) exacerbation
[2023-10-21 07:18] VITALS: RESP 18
[2023-10-21 11:15] LABS: Hematocrit (blood only) 33.2 % (37.0-47.0); Hemoglobin 10.5 g/dl (12.0-16.0); Mean Corpuscular Hemoglobin 28.6 pg (25.0-34.0); Mean Corpuscular Hgb Conc 31.6 g/dL (32.0-36.0); Mean Corpuscular Volume 90.5 fL (80.0-100.0); Mean Platelet Volume 9.4 fL (9.4-12.4); Platelet Count 258 K/uL (130-400); RDW Coefficient of Variation 13.6 % (11.5-14.5); RDW Standard Deviation 44.8 fL (36.4-46.3); Red Blood Count 3.67 M/uL (4.20-5.40); White Blood Count 6.94 K/ul (4.8-10.8)
[2023-10-21 11:33] LABS: BUN Creatinine Ratio 16.7 (10-20); Calcium 8.5 mg/dl (8.6-10.3); Creatinine Clr Calc Pharmacy 44.8 ml/min; Est GFR (African American) 56.5 ml/min; Est GFR (Non-African American) 48.8 ml/min; Potassium 4.6 mmol/L (3.5-5.1)
[2023-10-21 11:36] VITALS: TEMP 97.9; O2SAT 95
[2023-10-21] MEDS: POLYETHYLENE (MIRALAX) 17 GM PACK PO SCH (12:04)
[2023-10-21] MEDS: bisacodyL 5 MG TABEC PO ONE (12:04)
[2023-10-21] MEDS: hydroCHLOROthiazide 25 MG TAB PO STA (12:04)
--- NOTE | 2023-10-21 15:55 | Discharge Summary ---
Date of Service October 21, 2023 Admission HPI Per Admitting Provider Silvia is a 78-year-old female with PMH of COPD, sleep apnea, hyperlipidemia, depression, severe proteincalorie malnutrition, DVT, and multifocal pneumonia. She presented on the morning of 10/16 for SOB, chills, fever, and hypoxia. Her oxygen level was reported to be 83% on 3L NC at home. Patient's daughter is present at the bedside and provides history, as patient is a poor historian at this time. Patient lives with both her daughter and son. She does have a history of aspiration pneumonia, especially when she does not use her teeth. Daughter believes she ate something last night and aspirated. She was fine when she went to bed last night, but then was found to be feverish around 101 F this morning and short of breath. Daughter also noticed that patient was endorsing visual hallucinations, which is common when she develops pneumonia. She is on supplemental oxygen at baseline (3L NC). She does not use a CPAP at night, as she is unable to tolerate it. Patient reports that she took all her regular morning medications today; no recent change in medications. She occasionally does take a water pill for her right lower extremity edema. She has frequently aspirated in the past, and normally sticks to a minced/moist diet. She ambulates with a walker at baseline, but did have 2 witnessed falls this morning. No head strike. No LOC. Patient is not on blood thinners. Patient is a former tobacco cigarette smoker, but quit last year in September; 1-2 PPD. Patient is tachypneic around 26 RPM at time of admission; SpO2 96% on 3L NC. ED course: Zosyn 4.5 g IV NSS 1000 mL IV ROS obtained from daughter: Patient endorses fever, chills, visual hallucinations, feeling off-balance, complains of substernal chest pain, and SOB at rest. Patient denies auditory hallucinations, cough, wheezing, abdominal pain, N/V/D, changes in urinary/bowel habits, dysuria, or burning with urination. Discharge Exam gen - NAD, comfortable, looks good today neck - no JVD mouth - MMM, no thrush heart - RRR, s1 s2, no murmur lungs - b/l basilar rales - especially left; good airation; no wheeze; no increased work of breathing abd - soft NT ND BS+ ext - no edema, pulses b/l feet 2+ Discharge Data Allergies Allergy/AdvReac Type Severity Reaction Status Date / Time atorvastatin [From Lipitor] Allergy Intermediate Skin Rash Verified 10/19/23 11:46 morphine AdvReac Intermediate Nausea Verified 10/19/23 11:46 Consultations 10/17/23 14:41 ED Decision to Admit Stat 10/18/23 13:32 Consult Gastroenterology Routine Procedures Performed Operation Date: 10/19/23 16:30 Actual Procedures p Esophagogastroduodenoscopy - Akil Valera MD Ordered Studies 10/17/23 13:15 CT abd pelvis IV con only Stat CT angio chest PE protocol Stat CT head/brain wo con Stat Hospital Course (1) Aspiration pneumonia: CXR - multifocal airspace opacities most prominently in the left lower lung Chest CTA - airspace opacities b/l consistent with pneumonia MRSA swab neg Resp BioFire panel negative Day #4 IV Unasyn Blood cx's neg to date Remains stable on typical home O2 amount of 3 L continuously She is stable and improved Speech therapy eval appreciated No changes in minced/moist diet at this time Compliance with such needed, however (2) Acute and chronic respiratory failure with hypoxia: Patient is on supplemental oxygen at baseline at home Hypoxic at 83% on 3L NC on the morning of 10/16 Since then O2 sats have been stable on the 3 L Acute component 2nd to #1 Chronic component 2nd to COPD (3) Sepsis: 2nd to #1 blood cx's negative to date sepsis resolved (4) Hypomagnesemia: Magnesium 1.4 on arrival Replaced Resolved (5) Type 2 diabetes mellitus: HbA1c - 7.3% Hold metformin, Trulicity Cont Novolog SSI Controlled nicely with bolus insulin alone (6) Elevated troponin: Peak troponin 40 2nd to myocardial demand ischemia in setting of #1 above No evidence of ACS (7) Fall: Fall x 2 AM of 10/16 at home; no LOC; no head injury Head CT negative for ICH, fracture, etc No evidence of other bony injuries PT/OT evaluations appreciated ok to return home at d/c (8) Hypertension: Continue lisinopril resume HCTZ tomorrow (9) Restless leg syndrome: Continue ropinirole Fe studies noted (ferritin - 107) Most of her cramps/leg symptoms are likely severe RLS added daytime dose of ropinirole 0.25mg at 12noon symptoms improved K/mag wnl replace low B12 (10) Sleep apnea: Patient is unable to tolerate CPAP at night by report (11) Schatzki's ring: history of on EGD 2020 repeat EGD this admission w/o such (12) COPD (chronic obstructive pulmonary disease): stable w/o exacerbation cont home inhalers, etc (13) Dysphagia: prior h/o achalasia s/o Heller Myotomy in 2021 - [facility] [place] prior h/o Schatzki's ring [facility] consulted due to abnormal appearing esophagus on CT chest this admission (fluid, thickening, etc) s/p EGD today - esophagus dilated with retained contrast (not sure when that contrast is from) findings concerning for recurrent achalasia will need manometry done post-d/c had previous manometry at [facility] - 05/21/2021 cont PPI BID dosing cont carafate cont pepcid cont minced/moist diet (14) Abnormal CT scan, esophagus: as above (15) Achalasia, esophageal: type 2, known h/o such s/p Heller Myotomy 2021 [facility] [place] see #13 above (16) Vitamin B12 deficiency: level is 217 B12 1000mcg po daily x 6 months (17) Mobitz I: HOLD diltiazem she is not on any other AV derrick agents no symptoms from the Mobitz 1 no higher block seen no symptoms to suggest Lyme disease cont to monitor Plan VTE PPx: Lovenox 40 mg SQ q24h progressing likely can d/c home tomorrow remove reynolds updated pt's daughter by phone this evening once again Discharge Plan Discharge Items Patient Disposition: Home - Self-Care Reason For Visit: ASPIRATION PNEUMONIA Discharge Diagnosis: 1. aspiration pneumonia 2. dysphagia (difficulty swallowing) 3. 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 history of achalasia - repeat manometry test needed 5. restless legs 6. chronic back pain 7. chronic hypoxic respiratory failure on home oxygen 8. diabetes Condition on Discharge: Good Activity: Resume your previous activity Activity Comment: as tolerated Non-emergency contact: Primary Care Provider Call non-emergency contact if: you have any medication questions, your symptoms worsen and you have a fever Follow-up/Referrals: Manny Bland, DO [Primary Care Provider] - Diet: Carb Consistent or DM2 and Heart Healthy Diet Comment: Minced and moist Addtl Attending Provider Instructions: Ms Church, You were hospitalized for aspiration pneumonia. You improved nicely with IV antibiotics. You underwent EGD (upper endoscopy) as your esophagus appeared abnormal on CT scan. EGD showed that the esophagus was dilated which may suggest that your previously treated achalasia condition has returned. Gastroenterology suggests that you have repeat manometry testing of your esophagus. You last had this test in May 2021 at [facility]. We will set up a referral for you to have this done again. In addition, we incidentally saw that you were having something called Mobitz type 1 heart block (see handout). Typically this does NOT cause problems for people. When this type of heart rhythm is discovered, however, we typically stop medicines like cardizem (diltiazem). We are recommending that this medicine is stopped. We are also recommending a 14-day heart monitor at home that will be mailed to your home with instructions on its use. This is to monitor for other "higher" blocks (3rd degree heart block, etc). You asked about obtaining a new primary care provider. You can see XANDER Keith, who is based out of [facility]. She is accepting new patients. Her contact info - [address] [address] Please contact her office to schedule a visit to get established. (ideally within 1 week) Recommendations - 1. amoxicillin-clavulanate chew tablets - 2 tabs twice daily x 3 days, first dose TONIGHT with food; this is your antibiotic for the pneumonia 2. please follow the minced/moist diet faithfully to prevent aspiration 3. STOP your diltiazem 4. START ropinirole 0.25mg daily about noontime - this is for restless legs/cramps 5. I have increased your oxycodone to the 7.5mg strength; you previously were getting 5mg tablets. Take 1 tablet every 8 hours as needed; please do not take 2 tablets at a time since we have increased the dose 6. again the heart monitor will be mailed to your home within the next week or so with instructions on its use; results get sent to [facility] 7. take a magnesium supplement daily; prescription sent to pharmacy for you 8. continue your 3 liters of oxygen as previous 9. for constipation - take a combination of odse-xha-oxbuwze senna (senakot) 2 tabs daily + miralax 1 serving daily Return to [facility] if - * you have fevers over 100 degrees * you have worsening shortness of breath * you have chest pains * you develop severe diarrhea * you check your oxygen levels on your finger with a pulse oximeter and your oxygen levels are consistently less than 88% * any other concerns It was our pleasure to care for you! -Dr Garcia Pending Studies at Discharge: No Stand-Alone Forms: My [facility], Smoking Cessation Medications and DC Order Prescriptions: New ropinirole 0.25 mg Tablet 0.25 mg PO DAILY@12 Qty: 30 2RF amoxicillin-pot clavulanate 400-57 mg tablet,chewable 2 tab PO BID 3 Days Qty: 12 0RF Rx Instructions: take with food; first dose PM of 10/21/23. magnesium oxide 400 mg magnesium tablet 400 mg PO DAILY Qty: 30 2RF Continued gabapentin 600 mg tablet 600 mg PO TID Rx Instructions: NEED TO CRUSH OR DISSOLVE MEDS TO SWALLOW. pravastatin 40 mg tablet 40 mg PO QAM Rx Instructions: NEED TO CRUSH OR DISSOLVE MEDS TO SWALLOW. sucralfate [Carafate] 1 gram tablet 1 g PO ACHS PRN (Reason: Indigestion) Rx Instructions: NEED TO CRUSH OR DISSOLVE MEDS TO SWALLOW. duloxetine [Cymbalta] 30 mg capsule,delayed release(DR/EC) 30 mg PO QAM Rx Instructions: TOTAL DOSE 90 MG--TAKES WITH 60 MG CAP. NEED TO CRUSH OR DISSOLVE MEDS TO SWALLOW. duloxetine 60 mg capsule,delayed release(DR/EC) 60 mg PO QAM Rx Instructions: TOTAL DOSE 90 MG--TAKES WITH 30 MG CAP. NEED TO CRUSH OR DISSOLVE MEDS TO SWALLOW. cholecalciferol (vitamin D3) [Vitamin D3] 25 mcg (1,000 unit) Tablet 25 mcg PO QAM Rx Instructions: Unable to verify OTC meds at this date/time. NEED TO CRUSH OR DISSOLVE MEDS TO SWALLOW. diclofenac sodium 1 % gel 2 g TOPICAL QID PRN (Reason: Pain) albuterol sulfate 90 mcg/actuation HFA aerosol inhaler 2 puff INHALATION Q3H PRN (Reason: Shortness Of Breath) acetaminophen 325 mg Tablet 650 mg PO Q4H MDD 2-3 GRAMS/24 HOURS PRN (Reason: fever or pain) Qty: 30 0RF Rx Instructions: Unable to verify OTC meds at this date/time. NEED TO CRUSH OR DISSOLVE MEDS TO SWALLOW. ondansetron HCl 4 mg Tablet 4 mg PO Q6H PRN (Reason: NAUSEA/VOMITING) Rx Instructions: NEED TO CRUSH OR DISSOLVE MEDS TO SWALLOW. lidocaine 5 % adhesive patch,medicated 1 patch transdermal DAILY ezetimibe 10 mg tablet 10 mg PO DAILY oxycodone-acetaminophen 7.5-325 mg tablet 1 tab PO Q8H PRN (Reason: pain) Qty: 30 0RF famotidine 40 mg tablet 40 mg PO HS lisinopril 10 mg Tablet 10 mg PO DAILY Rx Instructions: NEED TO CRUSH OR DISSOLVE MEDS TO SWALLOW. metformin 500 mg Tablet 1,000 mg PO BID Rx Instructions: NEED TO CRUSH OR DISSOLVE MEDS TO SWALLOW. ropinirole 1 mg tablet 1 mg PO HS Rx Instructions: NEED TO CRUSH OR DISSOLVE MEDS TO SWALLOW. donepezil 5 mg Tablet 5 mg PO DAILY Rx Instructions: NEED TO CRUSH OR DISSOLVE MEDS TO SWALLOW. tizanidine 4 mg tablet 4 mg PO Q8H PRN (Reason: MUSCLE SPASMS) trazodone 150 mg tablet 150 mg PO HS Rx Instructions: NEED TO CRUSH OR DISSOLVE MEDS TO SWALLOW. omeprazole 20 mg capsule,delayed release(DR/EC) 20 mg PO QAM Rx Instructions: NEED TO CRUSH OR DISSOLVE MEDS TO SWALLOW. hydrochlorothiazide 25 mg tablet 25 mg PO DAILY Rx Instructions: NEED TO CRUSH OR DISSOLVE MEDS TO SWALLOW. furosemide [Lasix] 20 mg Tablet 20 mg PO DAILY PRN (Reason: Edema) Rx Instructions: NEED TO CRUSH OR DISSOLVE MEDS TO SWALLOW. Trulicity 0.75 mg/0.5 mL pen injector 0.75 mg SUBCUT WK Rx Instructions: MONDAYS cyanocobalamin (vitamin B-12) [Vitamin B-12] 1,000 mcg Tablet 1,000 mcg PO QAM Qty: 0 0RF Rx Instructions: purchase over the counter Discontinued diltiazem HCl 180 mg capsule,extended release 24hr 180 mg PO QAM Rx Instructions: NEED TO CRUSH OR DISSOLVE MEDS TO SWALLOW. Discharge Orders: Discharge Order (Routine); Ordered 10/21/23 Ordered By: Tayo Zimmerman/Other Patient Handouts: Managing Type 2 Diabetes, Heart Block 2nd Degree, Special Foot Care for Diabetes Admission Data Admit Date/Time: 10/17/23 15:26 Attending Provider: Tayo Garcia Admit Provider: Laurie Singer Primary Care Provider: Manny Bland Other Providers: Laurie Singer; Akil Valera Coding Diagnoses Aspiration pneumonia, unspecified aspiration pneumonia type, unspecified laterality, unspecified part of lung J69.0 Aspiration pneumonia type: unspecified Laterality: unspecified laterality Lung location: unspecified part of lung Acute and chronic respiratory failure with hypoxia J96.21 Sepsis A41.9 Hypomagnesemia E83.42 Type 2 diabetes mellitus E11.9 Elevated troponin R79.89 Fall W19.XXXA Hypertension I10 Restless leg syndrome G25.81 Sleep apnea G47.30 Schatzki's ring K22.2 Chronic obstructive pulmonary disease with acute exacerbation J44.1 COPD type: COPD with acute exacerbation Dysphagia R13.[address] scan, esophagus R93.3 Achalasia, esophageal K22.0 Vitamin B12 deficiency E53.8 Mobitz I I44.1
[2023-10-21 15:59] VITALS: BP 120/71; PULSE 66
== END 2023-10-21 16:19 | disposition home or self-care (01) | DRG 871 ==
LOC: ED 12:18 → 2W 15:26 → SUATTDRO 15:26 → 2W 16:17